=== PATIENT | male | born 1960 | race Caucasian/White ===

== ENCOUNTER 2017-05-22 12:01 | Inpatient (IN) | payer OTHER ==
[2017-05-22] VITALS (7 sets, daily range): BP systolic 90–104; BP diastolic 66–76; PULSE 97–115; TEMP 36.8; O2SAT 91–94; BMI 29.8
[~2017-05-22] VITALS: Ht 190.5 cm; Wt 103.6 kg
[~2017-05-22 12:01] MED LIST: ASPI325T45 PO; CARV6.252 PO; DIGO0.122 PO; EFFSR75 PO; FURO-85 PO; LISI-461 PO; OXYC-57 PO; SPIR50TA3 PO; WARF4TAB44 PO
[2017-05-22] MEDS ORDERED: DiphenhydrAMINE HCL 50 MG/ML VIAL IV STA (12:21)
[2017-05-22] MEDS ORDERED: METHYLPREDNISOLONE 125 MG VIAL IV STA (12:21)
[2017-05-22] MEDS ORDERED: FAMOTIDINE 20MG/5ML IV PUSH IV STA (12:21)
[2017-05-22 12:31] LABS: ISTAT CREATININE 0.9 mg/dl (0.6-1.3); ISTAT IONIZED CALCIUM 1.07 mmol/l (1.12-1.32); ISTAT POTASSIUM 4.6 mEq/L (3.3-5.0)
[2017-05-22] MEDS ORDERED: SODIUM CHLORIDE 0.9% 500ML 500 ML IV STA (12:34)
[2017-05-22 12:43] LABS: BASO % 0.2 %; BASO ABS # 0.01 K/uL (0-0.2); EOS % 0.8 %; EOS ABS # 0.04 K/uL (0-0.5); HEMATOCRIT 30.8 % (42-52); HEMOGLOBIN 9.6 g/dL (14.0-18.0); IG# 0.05 K/uL (0.00-0.02); LYMPH % 24.4 %; LYMPH ABS # 1.29 K/uL (1.2-3.4); MEAN CORPUSCULAR HEMOGLOBIN 27.1 pg (25-34); MEAN CORPUSCULAR HGB CONC 31.2 g/dl (32-36); MEAN PLATELET VOLUME 10.4 fL (7.4-10.4); MONO % 12.5 %; MONO ABS # 0.66 K/uL (0.11-0.59); NEUT % 61.2 %; NEUT ABS # 3.24 K/uL (1.4-6.5); PLATELET COUNT 215 K/uL (130-400); RED CELL DISTRIBUTION WIDTH CV 16.9 % (11.5-14.5); RED CELL DISTRIBUTION WIDTH SD 53.8 fL (36.4-46.3); WHITE BLOOD COUNT 5.29 K/uL (4.8-10.8)
[2017-05-22 12:54] LABS: INR 1.1 (0.9-1.1); PTT PATIENT 26.6 SECONDS (21.0-31.0)
[2017-05-22 13:01] LABS: ALBUMIN 3.1 gm/dl (3.4-5.0); CALCIUM 8.1 mg/dl (8.5-10.1); CREATININE 0.94 mg/dl (0.60-1.40); POTASSIUM 4.4 mmol/L (3.5-5.1); TOTAL PROTEIN 7.3 gm/dl (6.4-8.2)
--- NOTE | 2017-05-22 13:01 | DIAGNOSTIC IMAGING REPORT ---
HEAD WITHOUT CONTRAST (CT) CLINICAL HISTORY: 56 years-old Male presenting with fall eval for bleed. TECHNIQUE: Multidetector CT imaging of the head was performed without the use of intravenous contrast. IV contrast: None. A dose lowering technique was used consistent with the principles of ALARA (as low as reasonably achievable). COMPARISON: None. CT DOSE (mGy.cm): The estimated cumulative dose is 614.27 mGy.cm. 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 Ventricles and sulci normal in size. Brain parenchyma normal in appearance with preserved hull-white differentiation. No mass effect or midline shift. No hemorrhage or acute territorial infarct. No extra-axial fluid collection. Paranasal sinuses and mastoid air cells clear. Calvarium intact. IMPRESSION: 1. No acute intracranial abnormality. Electronically signed by: Lasha Nickerson M.D. 05/22/2017 12:59 PM Dictated Date/Time: 05/22/2017 12:57 PM
[2017-05-22] MEDS ORDERED: ONDANSETRON INJ 2 MG/ML 2 ML VIAL IV STA (13:09)
[2017-05-22] MEDS ORDERED: FENTANYL CITRATE INJ 50 MCG/1 ML 2 ML VIAL IV STA ×2 (13:09→14:06)
--- NOTE | 2017-05-22 13:21 | DIAGNOSTIC IMAGING REPORT ---
CHEST COMBO ANGIO DISSECTION CLINICAL HISTORY: 56 years-old Male presenting with ^premedicated with solumedrol ^eval fro aortic dissection. TECHNIQUE: Multidetector CT angiography of the chest was performed before and after administration of intravenous contrast. 3-D volumetric and/or maximum intensity projection (MIP) images were subsequently reconstructed for review. IV contrast: 93 mL of Optiray 320. A dose lowering technique was used consistent with the principles of ALARA (as low as reasonably achievable). COMPARISON: None. CT DOSE (mGy.cm): The estimated cumulative dose is 4130.15. FINDINGS: Manager Fraud topogram: Left subclavian implanted cardiac defibrillator with single lead to the right ventricular apex. Cardiomegaly. Elevated left hemidiaphragm. Vasculature: The study is adequate for assessment of the aorta. Atherosclerosis of the four-vessel aortic arch. No evidence of intramural hematoma, dissection, penetrating ulcer, or aneurysm. Allowing for timing of the contrast bolus, no gross evidence of a filling defect within the pulmonary arteries to suggest embolus. Main pulmonary artery is not enlarged. No flattening of the interventricular septum. No intracardiac filling defect. No reflux of contrast into the hepatic veins. Remaining chest: On soft tissue windows, normal thyroid and thoracic inlet. No axillary, supraclavicular, hilar, or mediastinal lymphadenopathy. Multichamber enlargement of the heart. Coronary artery calcification. No pericardial or pleural effusion. Elevation of the left hemidiaphragm. On lung windows, extensive bandlike opacities in the left lower lobe and to a lesser extent in the posterior lingula, likely atelectasis and/or scarring. Less extensive dependent groundglass and reticular subpleural opacities in the right lower lobe, either atelectasis or postinfectious/postinflammatory change. Mild bronchial wall thickening, nonspecific. Central airways patent. On bone windows, degenerative changes of the spine. Evidence of old rib fractures. Very degrees of anterior vertebral body height loss at T4, T5, and T10-L2. The most severe compression deformity is at T5. Mild osteopenia. IMPRESSION: 1. No evidence of acute aortic injury. No acute intrathoracic pathology. 2. Bibasilar opacities greater on the left likely secondary to elevation of the left hemidiaphragm. 3. Mild osteopenia with multilevel intervertebral body height loss concerning for changes related to osteoporosis. The most severe compression deformity is at T5. Correlate for point tenderness to assess for acuity. Electronically signed by: Lasha Nickerson M.D. 05/22/2017 1:19 PM Dictated Date/Time: 05/22/2017 1:10 PM
[2017-05-22] MEDS ORDERED: HEPARIN SOD (PORCINE) 1000 UNIT/ML 10 ML VIAL IV STA ×2 (13:30→13:54)
--- NOTE | 2017-05-22 13:47 | DIAGNOSTIC IMAGING REPORT ---
[facility] LE RUNOFF CLINICAL HISTORY: 56 years-old Male presenting with concern for peripheral arterial clots, left-sided pain. TECHNIQUE: Multidetector CT angiography of the abdomen, pelvis, and bilateral lower extremity runoff was performed after the administration of intravenous contrast. 3-D volumetric and/or maximum intensity projection (MIP) images were subsequently reconstructed for review. IV contrast: 93 mL of Optiray 320. A dose lowering technique was used consistent with the principles of ALARA (as low as reasonably achievable). COMPARISON: None. CT DOSE (mGy.cm): The estimated cumulative dose is 4130.15 mGy.cm. FINDINGS: Mat Sewer topogram: Left subclavian implanted cardiac defibrillator with lead to the right ventricular apex. Cardiomegaly. Elevation left hemidiaphragm. Vasculature: No inflammatory change, hematoma, or evidence of active extravasation. No findings to suggest an acute arterial injury or impending rupture. Aorta: Atherosclerosis of the abdominal aorta with infrarenal ectasia measuring up to 2.8 cm in diameter. Patent origins of the major branch vessels. Common iliac arteries: Aneurysmal dilatation of the bilateral common iliac arteries, on the right measuring 3.1 cm in diameter and on the left measuring 3.1 cm in diameter. Extensive noncalcified atherosclerotic plaque circumferentially noted at the bilateral common iliac arteries without significant luminal narrowing. Internal and external iliac arteries: Aneurysmal dilatation extends into the right internal iliac artery, which measures 1.9 cm in diameter. No significant extension into the left though there is a separate less prominent aneurysmal dilatation of the more distal left internal iliac artery, which measures 1.5 cm in diameter. Bilateral external iliac arteries patent though stenosis noted on the right with a minimum diameter of 5.5 mm in comparison to the normal distal diameter of 7.4 mm (approximately 25% stenosis). Common femoral arteries: Bilateral common femoral arteries widely patent. Right lower extremity arteries: Vascular stent in place in the mid to distal right superficial femoral artery (SFA), which appears patent. Proximal to the stent there is extensive luminal irregularity. The stent appears to bridge a proximal right popliteal artery aneurysm, which measures 2 cm in diameter (series 7 image [id number]). No opacification of the occluded aneurysm. The stent terminates prior to the right lower extremity branching. Right anterior tibial artery (ANEL) widely patent. Right peroneal artery and right posterior tibial artery not well opacified proximally though with extensive calcified atherosclerotic plaque. Left lower extreme the arteries: Postsurgical changes of left SFA bypass grafting with a patent graft along its entire course. Extensive aneurysmal dilatation and irregularity of the occluded yuhaaviatam left SFA. The graft terminates at the level of the left popliteal artery immediately distal to a yuhaaviatam left popliteal arterial aneurysm. Reimplantation of the left anterior tibial artery at the level of the graft insertion. The reinserted left ANEL is patent though significant atherosclerotic narrowing (at least 50% luminal narrowing) noted at the level of the interosseous course. More distally the left ANEL is widely patent. Left peroneal artery appears occluded throughout the proximal to mid course but is reconstituted by collateral flow. Left posterior tibial artery appears occluded with extensive calcified atherosclerotic plaque. Remaining abdomen and pelvis: Lung bases: Minimal basilar opacities, likely atelectasis. Multichamber enlargement of the heart. Coronary artery calcification. Partially visualized implanted cardiac defibrillator lead to the right ventricular apex. No pericardial or pleural effusion. Liver: Normal morphology. Normal appearance allowing for phase of contrast. Biliary: No gross biliary ductal dilatation allowing for phase of contrast. Normal gallbladder. Pancreas: Mild parenchymal atrophy. Spleen: Normal. Adrenal glands: Normal. Kidneys and ureters: Normal allowing for the phase of contrast. No nephrolithiasis. Single main renal arteries bilaterally. No hydronephrosis. Bladder: Incompletely evaluated secondary to underdistention. Pelvic organs: Prostate and seminal vesicles normal. Bowel: Normal appendix. No bowel obstruction. Peritoneal cavity: No free fluid or intraperitoneal gas. Lymph nodes: No enlarged lymph nodes in the abdomen or pelvis. Abdominal wall: Small fat-containing umbilical hernia. Musculoskeletal: Degenerative changes of the spine. Old rib fractures noted. Vertebral body height loss of L5 Remaining bilateral lower extremities: Extensive subcutaneous edema in the left lower extremity greater than the right with extensive postsurgical changes along the anterior and medial left thigh from prior bypass grafting. Laminar fluid along the medial left thigh likely postsurgical seroma. This extends into the popliteal fossa deep to the medial head of gastrocnemius. IMPRESSION: 1. No findings to suggest acute vascular injury or aneurysm rupture. 2. Extensive atherosclerosis with multiple sites of aneurysmal dilatation (infrarenal aorta 2.8 cm, right common iliac artery 3.1 cm, left common iliac artery 3.1 cm, right internal iliac artery 1.9 cm, left internal iliac artery 1.5 cm). 3. Postsurgical changes of right SFA-popliteal stent with resulting occlusion of the right popliteal aneurysm. 4. Possible occlusion of right peroneal and posterior tibial arteries, likely chronic. Patent right ANEL. 5. Post surgical changes of left SFA bypass grafting with patent graft. 6. Extensive aneurysmal dilatation of irregularity of the occluded yuhaaviat[place] left SFA. 7. Post surgical changes of reimplanted left ANEL, which is patent. 8. 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 9. These findings were discussed with Dr. Blanco by Dr. Nickerson at 1:44 PM on 05/22/2014. Electronically signed by: Lasha Nickerson M.D. 05/22/2017 1:45 PM Dictated Date/Time: 05/22/2017 1:20 PM
[2017-05-22] MEDS: HEPARIN 25,000 UNIT/500ML D5W 500 ML IV PRN (13:51)
[2017-05-22] MEDS ORDERED: CYCL10TA6 PO (14:19)
[2017-05-22] MEDS ORDERED: LNX125 PO (14:19)
[2017-05-22] MEDS ORDERED: ATOR-26 PO (14:19)
[2017-05-22] MEDS ORDERED: DILT-113 PO (14:19)
[2017-05-22] MEDS ORDERED: NORT25CA PO (14:19)
[2017-05-22] MEDS ORDERED: RIVA1TAB4 PO (14:19)
[2017-05-22] MEDS ORDERED: TEST0.05 TOP (14:19)
[2017-05-22] MEDS ORDERED: MIRT30TA2 PO (14:19)
[2017-05-22] MEDS ORDERED: ASPI81TA28 PO (14:19)
[2017-05-22] MEDS ORDERED: NXM/40 PO (14:19)
[2017-05-22] MEDS ORDERED: OXYC-106 PO (14:19)
[2017-05-22] MEDS ORDERED: VNTHFA/IN INH (14:19)
[2017-05-22] MEDS ORDERED: ISOS30TA35 PO (14:19)
[2017-05-22] MEDS ORDERED: CETI10TA84 PO (14:19)
[2017-05-22] MEDS ORDERED: CLOP1TAB15 PO (14:19)
[2017-05-22] MEDS ORDERED: BUSP15TA70 PO (14:19)
--- NOTE | 2017-05-22 15:56 | History and Physical ---
History & Physical Date & Time of Service: May 22, 2017 at 15:52 Chief Complaint: Left Sided Pain Primary Care Physician: No Doctor, Assigned History of Present Illness Source: patient Mr. Morgan is a 56 y/o male with PMHx of Paroxysmal Atrial Fibrillation, Mixed Diastolic/Systolic CHF, S/P Pacer/ICD, H/O DVT/PE, HTN, HLD, DELICIA, and COPD who presents to the ED c/o L-sided pain and LOC. Patient reports his cardiac history started approximately 8-9 years ago when he developed a viral cardiomyopathy at which she reports his EF being 6%. He ultimately had an ICD placed in [facility] states he has been considered for heart transplantation. Due to multiple episodes of DVTs and PEs the surgery had to be postponed. With medical management he reports his EF began to improve. He states his last known EF was 30% but states this was a while ago. In March, he was in the [facility] as his mother recently and was getting her affairs in order. He reports he was found passed out on the floor and was taken to Hospital in [place]. While hospitalized, he states he had 2 stents placed in his coronary arteries and stents placed in the LLE and had LLE bypass. He states since leaving the hospital he has had progressive GROSSMAN which has limited his activity. He also reports chronically having decent blood pressures at rest but becoming hypotensive with ambulation and feeling dizzy and lightheaded. On 05/13 he notes that he was walking outside and the cold air is very irritative for him and had resultant firing of his ICD x 6 times. He reports on 05/19 he was sleeping and was awoken due to his ICD firing. Last night , he reports he was trying to sleep and developed significant LLE pain that kept him up at night. He states the pain is worse in the L ankle to the knee but the pain does radiate up his thigh, left side, into L neck, and down L arm. He states with this pain he noticed chest tightness and SOB. The CP resolved with NTG. He noted that his SOB appeared to be getting worse throughout the day and figured he needed evaluated. When he was getting a shower he felt lightheaded and laid down in the shower and states he believed her lost consciousness. He also reports multiple black bowel movements over the past couple days. He is on Xarelto, ASA, and Plavix and denies additional NSAIDs, iron supplementation, or Pepto-Bismol. He states he has had GI ulcers in the past. In the ED, patient was hypotensive after NTG but afebrile and without leukocytosis. Denies CP but troponins at 12. Reporting last ICD firing was on 05/19. Dr. Parker was at bedside and pacer was interrogated. Patient appears in no acute distress, mentating appropriately, denies CP. Only complaint is of LLE pain. States the redness of his leg is worse than normal but the swelling is improving. States he has been wrapping his leg with warm compresses that seems to help. Patient states he ran out of his Xarelto and hasn't taken it the past couple days. Past Medical/Surgical History Medical Problems: (1) Atrial Fibrillation Status: Chronic (2) Chronic Diastolic Hrt Failure Status: Chronic (3) Coronary Atherosclerosis Of [place] Coronary Vessel Status: Chronic (4) Hypertension Nos Status: Chronic (5) Mixed Hyperlipidemia Status: Chronic Family History Family history was reviewed; no changes noted. Social History Smoking Status: Former Smoker Smokeless Tobacco Use: No Alcohol Use: none Drug Use: heroin Marital Status: single Occupational Status: disabled Allergies Coded Allergies: Heparin (Unverified Allergy, Severe, Swells up., 05/22/17) Reported by PT, swells up from Heparin injections. Iodinated Diagnostic Agents (Verified Allergy, Intermediate, swelling, hives, 05/22/17) Ibuprofen (Verified Adverse Reaction, Mild, nausea vomiting, 05/22/17) Home Medications Scheduled Aspirin (Aspirin Ec), 81 MG PO QAM Atorvastatin (Lipitor), 80 MG PO HS Buspirone Hcl (Buspar), 15 MG PO TID Cetirizine (Zyrtec), 10 MG PO QAM Clopidogrel (Plavix), 75 MG PO QAM Cyclobenzaprine Hcl (Flexeril), 10 MG PO BID Digoxin (Digoxin), 0.125 MG PO QAM Diltiazem Hcl Ext Rel (Tiazac), 180 MG PO QAM Esomeprazole Magnesium (Nexium), 40 MG PO QAM Isosorbide Mononitrate Ext Rel (Imdur Ext Rel), 0.5 TAB PO DAILY Mirtazapine Soltab (Remeron Soltab), 60 MG PO HS Nortriptyline (Pamelor), 25 MG PO HS Rivaroxaban (Xarelto), 20 MG PO QPM Testosterone (Androderm), 1 PATCH TOP DAILY Scheduled PRN Albuterol Hfa (Ventolin Hfa), 2 PUFFS INH Q6H PRN for Shortness of Breath Oxycodone/Acetaminophen 10MG/325MG (Percocet 10MG/325MG), 1 TAB PO TID PRN for Pain Review of Systems Constitutional: + fatigue, No fever, No chills ENT: No nasal symptoms, No sore throat Respiratory: + dyspnea on exertion, No cough, No dyspnea at rest Cardiovascular: + chest pain (RESOLVED), No orthopnea, No palpitations Abdomen: + GI bleeding (melena), No pain, No nausea, No vomiting, No diarrhea, No constipation Musculoskeletal: + swelling (LLE), + calf pain (LLE) Genitourinary - Male: No dysuria Physical Exam Vital Signs Date Time Temp Pulse Resp B/P (MAP) Pulse Ox O2 Delivery O2 Flow Rate FiO2 05/22/17 14:56 104 26 91 05/22/17 14:51 102 24 96 05/22/17 14:46 104 15 92 05/22/17 14:41 100 21 93 05/22/17 14:36 98 14 95 05/22/17 14:31 102 12 05/22/17 14:26 102 19 92 05/22/17 14:21 102 18 93 05/22/17 14:16 104 18 96 05/22/17 14:11 104 25 96 05/22/17 14:06 105 22 94 05/22/17 14:01 104 21 97 05/22/17 13:56 105 18 05/22/17 13:51 105 24 94 05/22/17 13:46 100 12 97 05/22/17 13:41 102 16 96 05/22/17 13:36 103 17 100 05/22/17 13:31 104 12 97 05/22/17 13:26 100 19 98 05/22/17 13:21 103 10 98 05/22/17 13:16 103 18 100 05/22/17 13:11 101 18 99 05/22/17 13:06 103 15 99 05/22/17 13:01 102 19 97 1/4/18 12:58 100/78 05/22/17 12:31 109 27 05/22/17 12:30 102/73 05/22/17 12:26 104 21 05/22/17 12:21 118 31 05/22/17 12:18 94/65 05/22/17 12:16 211 27 99 05/22/17 12:12 110 05/22/17 12:11 110 26 05/22/17 12:05 93/58 05/22/17 12:05 98 Room Air 05/22/17 12:05 36.9 111 22 93/58 98 Room Air General Appearance: WD/WN, no apparent distress Head: normocephalic, atraumatic Eyes: sclerae normal ENT: hearing grossly normal Neck: supple, + JVD Respiratory/Chest: lungs clear, no respiratory distress, no accessory muscle use, + decreased breath sounds (diminished at bases) Cardiovascular: regular rate, rhythm Abdomen/GI: normal bowel sounds, non tender, soft Extremities/Musculoskelatal: + calf tenderness, + inflammation, + pertinent finding (red streaking along medial aspect of LLE extending to groin) Neurologic/Psych: alert, oriented x 3 Skin: normal color, warm/dry Diagnostics Laboratory Results Results Past 24 Hours Test 05/22/17 12:10 05/22/17 12:18 05/22/17 13:22 Range/Units White Blood Count 5.29 4.8-10.8 K/uL Red Blood Count 3.54 4.7-6.1 M/uL Hemoglobin 9.6 14.0-18.0 g/dL Hematocrit 30.8 42-52 % Mean Corpuscular Volume 87.0 80-100 fL Mean Corpuscular Hemoglobin 27.1 25-34 pg Mean Corpuscular Hemoglobin Concent 31.2 32-36 g/dl Platelet Count 215 130-400 K/uL Mean Platelet Volume 10.4 7.4-10.4 fL Neutrophils (%) (Auto) 61.2 % Lymphocytes (%) (Auto) 24.4 % Monocytes (%) (Auto) 12.5 % Eosinophils (%) (Auto) 0.8 % Basophils (%) (Auto) 0.2 % Neutrophils # (Auto) 3.24 1.4-6.5 K/uL Lymphocytes # (Auto) 1.29 1.2-3.4 K/uL Monocytes # (Auto) 0.66 0.11-0.59 K/uL Eosinophils # (Auto) 0.04 0-0.5 K/uL Basophils # (Auto) 0.01 0-0.2 K/uL RDW Standard Deviation 53.8 36.4-46.3 fL RDW Coefficient of Variation 16.9 11.5-14.5 % Immature Granulocyte % (Auto) 0.9 % Immature Granulocyte # (Auto) 0.05 0.00-0.02 K/uL Prothrombin Time 11.5 9.0-12.0 SECONDS Prothromb Time International Ratio 1.1 0.9-1.1 Activated Partial Thromboplast Time 26.6 21.0-31.0 SECONDS Partial Thromboplastin Ratio 1.0 Sodium Level 135 136-145 mmol/L Potassium Level 4.4 3.5-5.1 mmol/L Chloride Level 105 98-107 mmol/L Carbon Dioxide Level 24 21-32 mmol/L Anion Gap 6.0 20.0 16-25 mmol/L Blood Urea Nitrogen 6 7-18 mg/dl Creatinine 0.94 0.60-1.40 mg/dl Est Creatinine Clear Calc Drug Dose 113.8 ml/min Estimated GFR () 103.2 Estimated GFR (Non- 89.0 BUN/Creatinine Ratio 6.4 10-20 Random Glucose 93 70-99 mg/dl Calcium Level 8.1 8.5-10.1 mg/dl Total Bilirubin 0.4 0.2-1 mg/dl Direct Bilirubin 0.1 0-0.2 mg/dl Aspartate Amino Transf (AST/SGOT) 73 15-37 U/L Alanine Aminotransferase (ALT/SGPT) 28 12-78 U/L Alkaline Phosphatase 72 45-117 U/L Troponin I 12.200 0-0.045 ng/ml Total Protein 7.3 6.4-8.2 gm/dl Albumin 3.1 3.4-5.0 gm/dl Lipase 125 73-393 U/L Bedside Hemoglobin 10.5 14.0-18.0 g/dl Bedside Hematocrit 31 42-52 % Bedside Sodium 139 135-144 mEq/L Bedside Potassium 4.6 3.3-5.0 mEq/L Bedside Chloride 101 101-112 mEq/L Bedside Total CO2 24 24-31 mEq/l Bedside Blood Urea Nitrogen 4 7-18 mg/dl Bedside Creatinine 0.9 0.6-1.3 mg/dl Bedside Glucose (other) 97 70-99 mg/dl Bedside Ionized Calcium (Eduardo) 1.07 1.12-1.32 mmol/l Bedside Troponin I 14.010 0-0.045 ng/ml Microbiology Results 05/22/17 Blood Culture, Received Pending 05/22/17 Blood Culture, Received Pending Diagnostic Radiology HEAD WITHOUT CONTRAST (CT) FINDINGS: Boring Machine Operator Helper topogram: Unremarkable. Ventricles and sulci normal in size. Brain parenchyma normal in appearance with preserved hull-white differentiation. No mass effect or midline shift. No hemorrhage or acute territorial infarct. No extra-axial fluid collection. Paranasal sinuses and mastoid air cells clear. Calvarium intact. IMPRESSION: 1. No acute intracranial abnormality. CHEST COMBO ANGIO DISSECTION FINDINGS: Boring Machine Operator Helper topogram: Left subclavian implanted cardiac defibrillator with single lead to the right ventricular apex. Cardiomegaly. Elevated left hemidiaphragm. Vasculature: The study is adequate for assessment of the aorta. Atherosclerosis of the four-vessel aortic arch. No evidence of intramural hematoma, dissection, penetrating ulcer, or aneurysm. Allowing for timing of the contrast bolus, no gross evidence of a filling defect within the pulmonary arteries to suggest embolus. Main pulmonary artery is not enlarged. No flattening of the interventricular septum. No intracardiac filling defect. No reflux of contrast into the hepatic veins. Remaining chest: On soft tissue windows, normal thyroid and thoracic inlet. No axillary, supraclavicular, hilar, or mediastinal lymphadenopathy. Multichamber enlargement of the heart. Coronary artery calcification. No pericardial or pleural effusion. Elevation of the left hemidiaphragm. On lung windows, extensive bandlike opacities in the left lower lobe and to a lesser extent in the posterior lingula, likely atelectasis and/or scarring. Less extensive dependent groundglass and reticular subpleural opacities in the right lower lobe, either atelectasis or postinfectious/postinflammatory change. Mild bronchial wall thickening, nonspecific. Central airways patent. On bone windows, degenerative changes of the spine. Evidence of old rib fractures. Very degrees of anterior vertebral body height loss at T4, T5, and T10-L2. The most severe compression deformity is at T5. Mild osteopenia. IMPRESSION: 1. No evidence of acute aortic injury. No acute intrathoracic pathology. 2. Bibasilar opacities greater on the left likely secondary to elevation of the left hemidiaphragm. 3. Mild osteopenia with multilevel intervertebral body height loss concerning for changes related to osteoporosis. The most severe compression deformity is at T5. Correlate for point tenderness to assess for acuity. ANGIO AA KATHARINE LE RUNOFF FINDINGS: Boring Machine Operator Helper topogram: Left subclavian implanted cardiac defibrillator with lead to the right ventricular apex. Cardiomegaly. Elevation left hemidiaphragm. Vasculature: No inflammatory change, hematoma, or evidence of active extravasation. No findings to suggest an acute arterial injury or impending rupture. Aorta: Atherosclerosis of the abdominal aorta with infrarenal ectasia measuring up to 2.8 cm in diameter. Patent origins of the major branch vessels. Common iliac arteries: Aneurysmal dilatation of the bilateral common iliac arteries, on the right measuring 3.1 cm in diameter and on the left measuring 3.1 cm in diameter. Extensive noncalcified atherosclerotic plaque circumferentially noted at the bilateral common iliac arteries without significant luminal narrowing. Internal and external iliac arteries: Aneurysmal dilatation extends into the right internal iliac artery, which measures 1.9 cm in diameter. No significant extension into the left though there is a separate less prominent aneurysmal dilatation of the more distal left internal iliac artery, which measures 1.5 cm in diameter. Bilateral external iliac arteries patent though stenosis noted on the right with a minimum diameter of 5.5 mm in comparison to the normal distal diameter of 7.4 mm (approximately 25% stenosis). Common femoral arteries: Bilateral common femoral arteries widely patent. Right lower extremity arteries: Vascular stent in place in the mid to distal right superficial femoral artery (SFA), which appears patent. Proximal to the stent there is extensive luminal irregularity. The stent appears to bridge a proximal right popliteal artery aneurysm, which measures 2 cm in diameter (series 7 image [id number]). No opacification of the occluded aneurysm. The stent terminates prior to the right lower extremity branching. Right anterior tibial artery (ANEL) widely patent. Right peroneal artery and right posterior tibial artery not well opacified proximally though with extensive calcified atherosclerotic plaque. Left lower extreme the arteries: Postsurgical changes of left SFA bypass grafting with a patent graft along its entire course. Extensive aneurysmal dilatation and irregularity of the occluded [place] left SFA. The graft terminates at the level of the left popliteal artery immediately distal to a [place] left popliteal arterial aneurysm. Reimplantation of the left anterior tibial artery at the level of the graft insertion. The reinserted left ANEL is patent though significant atherosclerotic narrowing (at least 50% luminal narrowing) noted at the level of the interosseous course. More distally the left ANEL is widely patent. Left peroneal artery appears occluded throughout the proximal to mid course but is reconstituted by collateral flow. Left posterior tibial artery appears occluded with extensive calcified atherosclerotic plaque. Remaining abdomen and pelvis: Lung bases: Minimal basilar opacities, likely atelectasis. Multichamber enlargement of the heart. Coronary artery calcification. Partially visualized implanted cardiac defibrillator lead to the right ventricular apex. No pericardial or pleural effusion. Liver: Normal morphology. Normal appearance allowing for phase of contrast. Biliary: No gross biliary ductal dilatation allowing for phase of contrast. Normal gallbladder. Pancreas: Mild parenchymal atrophy. Spleen: Normal. Adrenal glands: Normal. Kidneys and ureters: Normal allowing for the phase of contrast. No nephrolithiasis. Single main renal arteries bilaterally. No hydronephrosis. Bladder: Incompletely evaluated secondary to underdistention. Pelvic organs: Prostate and seminal vesicles normal. Bowel: Normal appendix. No bowel obstruction. Peritoneal cavity: No free fluid or intraperitoneal gas. Lymph nodes: No enlarged lymph nodes in the abdomen or pelvis. Abdominal wall: Small fat-containing umbilical hernia. Musculoskeletal: Degenerative changes of the spine. Old rib fractures noted. Vertebral body height loss of L5 Remaining bilateral lower extremities: Extensive subcutaneous edema in the left lower extremity greater than the right with extensive postsurgical changes along the anterior and medial left thigh from prior bypass grafting. Laminar fluid along the medial left thigh likely postsurgical seroma. This extends into the popliteal fossa deep to the medial head of gastrocnemius. IMPRESSION: 1. No findings to suggest acute vascular injury or aneurysm rupture. 2. Extensive atherosclerosis with multiple sites of aneurysmal dilatation (infrarenal aorta 2.8 cm, right common iliac artery 3.1 cm, left common iliac artery 3.1 cm, right internal iliac artery 1.9 cm, left internal iliac artery 1.5 cm). 3. Postsurgical changes of right SFA-popliteal stent with resulting occlusion of the right popliteal aneurysm. 4. Possible occlusion of right peroneal and posterior tibial arteries, likely chronic. Patent right ANEL. 5. Post surgical changes of left SFA bypass grafting with patent graft. 6. Extensive aneurysmal dilatation of irregularity of the occluded [place] left SFA. 7. Post surgical changes of reimplanted left ANEL, which is patent. 8. 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 9. These findings were discussed with Dr. Blanco by Dr. Nickerson at 1:44 PM on 05/22/2014. EKG Sinus tachycardia Left axis deviation Incomplete right bundle branch block Inferior infarct , age undetermined Abnormal ECG When compared with ECG of 17-NOV-2014 16:48, Inferior infarct is now present Inverted T waves have replaced nonspecific T wave abnormality in Inferior leads Confirmed by Marito Guerra ([id number]) on 05/22/2017 3:29:53 PM Impression Assessment and Plan Mr. Morgan is a 56 y/o male with PMHx of Paroxysmal Atrial Fibrillation, Mixed Diastolic/Systolic CHF, S/P Pacer/ICD, H/O DVT/PE, HTN, HLD, DELICIA, and COPD who presents to the ED c/o L-sided pain and LOC. NSTEMI: - Patient currently is CP free but troponin at 12 and will trend - Continue Heparin gtt at this time - ASA 81 mg daily and Plavix 75 mg daily - NTG patch - Echo already obtained - Cardiology following - Discussed with Dr. Parker - no invasive intervention at this time but consideration for further testing this hospitalization RLE Pain with Chronic Occlusions: - Skin is mildly erythematous and not significantly warm to touch - may be from chronic occlusions but possible infection - he is afebrile and without leukocytosis, denies fever/chills; can monitor and consider Abx treatment CAD S/P Stents with Mixed Chronic Diastolic/Systolic CHF and S/P ICD: - Imdur 15 mg daily Paroxsymal Atrial Fibrillation: - Digoxin 0.125 mg daily and Diltiazem 180 mg daily COPD without Exacerbation: - Ventolin 2 puffs Q6H PRN Melena: - Hemeoccult stool and monitor H&H - states that they may be more of a dark brown almost black I personally interviewed and examined the patient. I agree with history of present illness and physical exam mentioned above, I also performed my own history taking and examination. Past medical history and review of system has been obtained by myself I reviewed all pertinent labs and studies Reviewed current medications I discussed and formulated of the assessment and plan mentioned above. Please refer to the Summary mentioned below. 56-year-old man with past medical history of paroxysmal atrial fibrillation noncompliant with his Xarelto, combined diastolic/systolic congestive heart failure likely secondary to severe sleep apnea status post pacer/ICD presented to the ED with chest tightness started today and his troponin was 12. Patient mentioned that his AICD fired in [place] May 19 and on May 13. Pacer interrogation indicated he had an episode of V. tach. Patient was started on heparin since he wasn't taking his Xarelto, seen by senior animator will eventually have cardiac catheterization Serial cardiac enzymes, and instructed to do sleep study and use his CPAP General Appearance: not in acute distress Eyes: normal Sclerae, extraocular muscle intact ENT: hearing grossly normal Neck: supple Respiratory/Chest: normal air entry bilateral ,no respiratory distress, no accessory muscle use Cardiovascular: regular rate, rhythm, no murmur Abdomen: non tender, soft, no masses Extremities: no edema Neurologic/Psychiatric: Awake alert oriented times place and person moves all extremities sensation intact cranial nerves II-12 appear to be intact Skin: normal color, warm/dry, no rash Perez Jain MD, [facility] Level of Care Critical Care Resuscitation Status FULL RESUSCITATION VTE Prophylaxis Given or contraindicated: Other Anticoagulation (Heparin gtt)
[2017-05-22] MEDS ORDERED: ONDANSETRON INJ 2 MG/ML 2 ML VIAL IV PRN (16:00)
[2017-05-22] MEDS ORDERED: ACETAMINOPHEN 325 MG TAB PO PRN (16:00)
[2017-05-22] MEDS ORDERED: ALBUTEROL HFA 8 GM INHALER INH PRN (16:00)
[2017-05-22] MEDS ORDERED: ICU PROTOCOL FOR HYPERGLYCEMIA PRN (16:00)
[2017-05-22] MEDS ORDERED: ALUMINUM/MAGNESIUM/SIMETH (MAALOX MAX) 30 ML UDC PO PRN (16:00)
[2017-05-22] MEDS ORDERED: NITROGLYCERIN 0.4 MG SL PER TAB CHARGE SL PRN (16:15)
[2017-05-22] MEDS ORDERED: OXYCODONE/ACETAMINOPHEN 10/325MG TAB ONE (16:54)
--- NOTE | 2017-05-22 16:58 | EMERGENCY ROOM VISIT NOTE ---
History Report prepared by Mariama: Dain Quintero Under the Supervision of: Dr. Maroi Blanco M.D. First contact with patient: 12:11 Chief Complaint: CARDIAC ASSESSMENT Stated Complaint: LEFT SIDED PAIN Nursing Triage Summary: Pt.is from [place] [id number] and has a cardiac hx. Defib and pacemaker. 6-8 weeks ago he had stents inserted, he had dark brown stools last night, noticed chest tightness. 8/10. The left sided pain he has extends the whole way to his foot. EMS gave him 1 nitro, chest tightness decreased from 8/10 to 5/10. He also took 324mg ASA. Pt. states that this morning he took a shower and "blacked out." Also c/o SOB. History of Present Illness The patient is a 56 year old male who presents to the Emergency Room with complaints of worsening, sharp, left sided pain that radiates from his left leg to his left neck beginning this morning. He currently rates his discomfort a 5/ 10. The patient states his discomfort started with a sharp pain in his left leg that shot through the left side of his body to his neck, left back and left arm. He reports shortly after he developed chest tightness that almost resolved with nitroglycerin in the ambulance. The patient notes he became short of breath and weak with his discomfort. He states he try to shower but then became very weak and he thinks he passed out. The patient reports he developed lightheadedness, lied down on the floor, and lost consciousness. He notes he did not fall or hit his head, and he denies a headache. He does not think his defibrillator went off. The patient states he has a history of two stents placed in his heart and legs six weeks ago. 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 The patient notes he has a history of blood clots, including blood clots in his lungs. He states he is on Coumadin, but he ran out of medication a few days ago, so he has not been taking it.(Later he clarified and said that he is on Xarelto has not taken it for the past 2 days. His Coumadin was stopped .)The patient reports he also has a history of atrial fibrillation. He notes his pain feels different than his chronic back pain. Nursing staff notes the patient was normotensive in the ambulance and became hypotensive with nitroglycerin. He later added that he felt his defibrillator go off May 19 in the morning. He also said it went off 6 times before [place]. He did not seek medical attention for this. Currently he states that his left leg is what's hurting him the most. Source of History: patient Onset: this morning Position: neck, chest (left), arm (left), leg (left) Symptom Intensity: 5/10 Quality: sharp Timing: worsening Associated Symptoms: + LOC, + SOB, + weakness, No headache Note: Associated symptoms: chest pain that resolved with nitroglycerin, lightheadedness, Denies: hitting his head Review of Systems See HPI for pertinent positives & negatives. A total of 10 systems reviewed and were otherwise negative. Past Medical & Surgical Medical Problems: (1) Atrial Fibrillation (2) Chronic Diastolic Hrt Failure (3) Coronary Atherosclerosis Of [place] Coronary Vessel (4) Hypertension Nos (5) Mixed Hyperlipidemia (6) NSTEMI (non-ST elevated myocardial infarction) Family History Patient reports no known family medical history. Social History Smoking Status: Former Smoker Alcohol Use: none Drug Use: heroin Marital Status: single Occupation Status: disabled Current/Historical Medications Scheduled Aspirin (Aspirin Ec), 81 MG PO QAM Atorvastatin (Lipitor), 80 MG PO HS Buspirone Hcl (Buspar), 15 MG PO TID Cetirizine (Zyrtec), 10 MG PO QAM Clopidogrel (Plavix), 75 MG PO QAM Cyclobenzaprine Hcl (Flexeril), 10 MG PO BID Digoxin (Digoxin), 0.125 MG PO QAM Diltiazem Hcl Ext Rel (Tiazac), 180 MG PO QAM Esomeprazole Magnesium (Nexium), 40 MG PO QAM Isosorbide Mononitrate Ext Rel (Imdur Ext Rel), 0.5 TAB PO DAILY Mirtazapine Soltab (Remeron Soltab), 60 MG PO HS Nortriptyline (Pamelor), 25 MG PO HS Rivaroxaban (Xarelto), 20 MG PO QPM Testosterone (Androderm), 1 PATCH TOP DAILY Scheduled PRN Albuterol Hfa (Ventolin Hfa), 2 PUFFS INH Q6H PRN for Shortness of Breath Oxycodone/Acetaminophen 10MG/325MG (Percocet 10MG/325MG), 1 TAB PO TID PRN for Pain Allergies Coded Allergies: Heparin (Unverified Allergy, Severe, Swells up., 05/22/17) Reported by PT, swells up from Heparin injections. Ibuprofen (Unverified Allergy, Unknown, neasua vomiting, 05/22/17) Uncoded Allergies: IV CONTRAST (Allergy, Unknown, Swelling and hives., 11/17/14) Reported by PT Physical Exam Vital Signs Date Time Temp Pulse Resp B/P (MAP) Pulse Ox O2 Delivery O2 Flow Rate FiO2 05/22/17 14:56 104 26 91 05/22/17 14:51 102 24 96 05/22/17 14:46 104 15 92 05/22/17 14:41 100 21 93 05/22/17 14:36 98 14 95 05/22/17 14:31 102 12 05/22/17 14:26 102 19 92 05/22/17 14:21 102 18 93 05/22/17 14:16 104 18 96 05/22/17 14:11 104 25 96 05/22/17 14:06 105 22 94 05/22/17 14:01 104 21 97 05/22/17 13:56 105 18 05/22/17 13:51 105 24 94 05/22/17 13:46 100 12 97 05/22/17 13:41 102 16 96 05/22/17 13:36 103 17 100 05/22/17 13:31 104 12 97 05/22/17 13:26 100 19 98 05/22/17 13:21 103 10 98 05/22/17 13:16 103 18 100 05/22/17 13:11 101 18 99 05/22/17 13:06 103 15 99 05/22/17 13:01 102 19 97 05/22/17 12:58 100/78 05/22/17 12:31 109 27 05/22/17 12:30 102/73 05/22/17 12:26 104 21 05/22/17 12:21 118 31 05/22/17 12:18 94/65 05/22/17 12:16 211 27 99 05/22/17 12:12 110 05/22/17 12:11 110 26 05/22/17 12:05 93/58 05/22/17 12:05 98 Room Air 05/22/17 12:05 36.9 111 22 93/58 98 Room Air Physical Exam Constitutional: Vital signs reviewed. Hypotensive with equal blood pressures in both arms Eyes: Pupils are equal round reactive to light. Conjunctiva are noninjected. ENT: Pharynx is clear without erythema or exudate. Mucous membranes are moist. Neck supple without meningeal signs. Respiratory: Clear to auscultation bilaterally. Breath sounds are equal bilaterally. Cardiovascular: Tachycardic rate of 111 and regular rhythm. No rubs or gallops. GI: Soft, nondistended and nontender. Bowel sounds are present. Musculoskeletal: No peripheral edema. Tenderness to the left leg along the medial aspect of the lower leg tracking to midthigh with erythema and increased warmth. Incision powell to the left lower leg and inner thigh that are well healed. Symmetric pulses in extremities. Integumentary: No cyanosis. Neurological: The patient is awake and alert. No focal deficits. Psychiatric: Normal affect. Medical Decision & Procedures ER Provider Diagnostic Interpretation: CT results as stated below per my review and radiologist interpretation. CHEST COMBO ANGIO DISSECTION CLINICAL HISTORY: 56 years-old Male presenting with ^premedicated with solumedrol ^eval fro aortic dissection. TECHNIQUE: Multidetector CT angiography of the chest was performed before and after administration of intravenous contrast. 3-D volumetric and/or maximum intensity projection (MIP) images were subsequently reconstructed for review. IV contrast: 93 mL of Optiray 320. A dose lowering technique was used consistent with the principles of ALARA (as low as reasonably achievable). COMPARISON: None. CT DOSE (mGy.cm): The estimated cumulative dose is 4130.15. FINDINGS: [employer]ist topogram: Left subclavian implanted cardiac defibrillator with single lead to the right ventricular apex. Cardiomegaly. Elevated left hemidiaphragm. Vasculature: The study is adequate for assessment of the aorta. Atherosclerosis of the four-vessel aortic arch. No evidence of intramural hematoma, dissection, penetrating ulcer, or aneurysm. Allowing for timing of the contrast bolus, no gross evidence of a filling defect within the pulmonary arteries to suggest embolus. Main pulmonary artery is not enlarged. No flattening of the interventricular septum. No intracardiac filling defect. No reflux of contrast into the hepatic veins. Remaining chest: On soft tissue windows, normal thyroid and thoracic inlet. No axillary, supraclavicular, hilar, or mediastinal lymphadenopathy. Multichamber enlargement of the heart. Coronary artery calcification. No pericardial or pleural effusion. Elevation of the left hemidiaphragm. On lung windows, extensive bandlike opacities in the left lower lobe and to a lesser extent in the posterior lingula, likely atelectasis and/or scarring. Less extensive dependent groundglass and reticular subpleural opacities in the right lower lobe, either atelectasis or postinfectious/postinflammatory change. Mild bronchial wall thickening, nonspecific. Central airways patent. On bone windows, degenerative changes of the spine. Evidence of old rib fractures. Very degrees of anterior vertebral body height loss at T4, T5, and T10-L2. The most severe compression deformity is at T5. Mild osteopenia. IMPRESSION: 1. No evidence of acute aortic injury. No acute intrathoracic pathology. 2. Bibasilar opacities greater on the left likely secondary to elevation of the left hemidiaphragm. 3. Mild osteopenia with multilevel intervertebral body height loss concerning for changes related to osteoporosis. The most severe compression deformity is at T5. Correlate for point tenderness to assess for acuity. Electronically signed by: Lasha Nickerson M.D. 05/22/2017 1:19 PM Dictated Date/Time: 05/22/2017 1:10 PM HEAD WITHOUT CONTRAST (CT) CLINICAL HISTORY: 56 years-old Male presenting with fall eval for bleed. TECHNIQUE: Multidetector CT imaging of the head was performed without the use of intravenous contrast. IV contrast: None. A dose lowering technique was used consistent with the principles of ALARA (as low as reasonably achievable). COMPARISON: None. CT DOSE (mGy.cm): The estimated cumulative dose is 614.27 mGy.cm. FINDINGS: [employer]ist topogram: Unremarkable. Ventricles and sulci normal in size. Brain parenchyma normal in appearance with preserved hull-white differentiation. No mass effect or midline shift. No hemorrhage or acute territorial infarct. No extra-axial fluid collection. Paranasal sinuses and mastoid air cells clear. Calvarium intact. IMPRESSION: 1. No acute intracranial abnormality. Electronically signed by: Lasha Nickerson M.D. 05/22/2017 12:59 PM Dictated Date/Time: 05/22/2017 12:57 PM ANGIO AA KATHARINE LE RUNOFF CLINICAL HISTORY: 56 years-old Male presenting with concern for peripheral arterial clots, left-sided pain. TECHNIQUE: Multidetector CT angiography of the abdomen, pelvis, and bilateral lower extremity runoff was performed after the administration of intravenous contrast. 3-D volumetric and/or maximum intensity projection (MIP) images were subsequently reconstructed for review. IV contrast: 93 mL of Optiray 320. A dose lowering technique was used consistent with the principles of ALARA (as low as reasonably achievable). COMPARISON: None. CT DOSE (mGy.cm): The estimated cumulative dose is 4130.15 mGy.cm. FINDINGS: [employer]ist topogram: Left subclavian implanted cardiac defibrillator with lead to the right ventricular apex. Cardiomegaly. Elevation left hemidiaphragm. Vasculature: No inflammatory change, hematoma, or evidence of active extravasation. No findings to suggest an acute arterial injury or impending rupture. Aorta: Atherosclerosis of the abdominal aorta with infrarenal ectasia measuring up to 2.8 cm in diameter. Patent origins of the major branch vessels. Common iliac arteries: Aneurysmal dilatation of the bilateral common iliac arteries, on the right measuring 3.1 cm in diameter and on the left measuring 3.1 cm in diameter. Extensive noncalcified atherosclerotic plaque circumferentially noted at the bilateral common iliac arteries without significant luminal narrowing. Internal and external iliac arteries: Aneurysmal dilatation extends into the right internal iliac artery, which measures 1.9 cm in diameter. No significant extension into the left though there is a separate less prominent aneurysmal dilatation of the more distal left internal iliac artery, which measures 1.5 cm in diameter. Bilateral external iliac arteries patent though stenosis noted on the right with a minimum diameter of 5.5 mm in comparison to the normal distal diameter of 7.4 mm (approximately 25% stenosis). Common femoral arteries: Bilateral common femoral arteries widely patent. Right lower extremity arteries: Vascular stent in place in the mid to distal right superficial femoral artery (SFA), which appears patent. Proximal to the stent there is extensive luminal irregularity. The stent appears to bridge a proximal right popliteal artery aneurysm, which measures 2 cm in diameter (series 7 image 768). No opacification of the occluded aneurysm. The stent terminates prior to the right lower extremity branching. Right anterior tibial artery (ANEL) widely patent. Right peroneal artery and right posterior tibial artery not well opacified proximally though with extensive calcified atherosclerotic plaque. Left lower extreme the arteries: Postsurgical changes of left SFA bypass grafting with a patent graft along its entire course. Extensive aneurysmal dilatation and irregularity of the occluded [place] left SFA. The graft terminates at the level of the left popliteal artery immediately distal to a nav[place] left popliteal arterial aneurysm. Reimplantation of the left anterior tibial artery at the level of the graft insertion. The reinserted left ANEL is patent though significant atherosclerotic narrowing (at least 50% luminal narrowing) noted at the level of the interosseous course. More distally the left ANEL is widely patent. Left peroneal artery appears occluded throughout the proximal to mid course but is reconstituted by collateral flow. Left posterior tibial artery appears occluded with extensive calcified atherosclerotic plaque. Remaining abdomen and pelvis: Lung bases: Minimal basilar opacities, likely atelectasis. Multichamber enlargement of the heart. Coronary artery calcification. Partially visualized implanted cardiac defibrillator lead to the right ventricular apex. No pericardial or pleural effusion. Liver: Normal morphology. Normal appearance allowing for phase of contrast. Biliary: No gross biliary ductal dilatation allowing for phase of contrast. Normal gallbladder. Pancreas: Mild parenchymal atrophy. Spleen: Normal. Adrenal glands: Normal. Kidneys and ureters: Normal allowing for the phase of contrast. No nephrolithiasis. Single main renal arteries bilaterally. No hydronephrosis. Bladder: Incompletely evaluated secondary to underdistention. Pelvic organs: Prostate and seminal vesicles normal. Bowel: Normal appendix. No bowel obstruction. Peritoneal cavity: No free fluid or intraperitoneal gas. Lymph nodes: No enlarged lymph nodes in the abdomen or pelvis. Abdominal wall: Small fat-containing umbilical hernia. Musculoskeletal: Degenerative changes of the spine. Old rib fractures noted. Vertebral body height loss of L5 Remaining bilateral lower extremities: Extensive subcutaneous edema in the left lower extremity greater than the right with extensive postsurgical changes along the anterior and medial left thigh from prior bypass grafting. Laminar fluid along the medial left thigh likely postsurgical seroma. This extends into the popliteal fossa deep to the medial head of gastrocnemius. IMPRESSION: 1. No findings to suggest acute vascular injury or aneurysm rupture. 2. Extensive atherosclerosis with multiple sites of aneurysmal dilatation (infrarenal aorta 2.8 cm, right common iliac artery 3.1 cm, left common iliac artery 3.1 cm, right internal iliac artery 1.9 cm, left internal iliac artery 1.5 cm). 3. Postsurgical changes of right SFA-popliteal stent with resulting occlusion of the right popliteal aneurysm. 4. Possible occlusion of right peroneal and posterior tibial arteries, likely chronic. Patent right ANEL. 5. Post surgical changes of left SFA bypass grafting with patent graft. 6. Extensive aneurysmal dilatation of irregularity of the occluded [place] left SFA. 7. Post surgical changes of reimplanted left ANEL, which is patent. 8. 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 9. These findings were discussed with Dr. Blanco by Dr. Nickerson at 1:44 PM on 05/22/2014. Electronically signed by: Lasha Nickerson M.D. 05/22/2017 1:45 PM Dictated Date/Time: 05/22/2017 1:20 PM Laboratory Results 05/22/17 12:10 Red Blood Count 3.54, Mean Corpuscular Volume 87.0, Mean Corpuscular Hemoglobin 27.1, Mean Corpuscular Hemoglobin Concent 31.2, Mean Platelet Volume 10.4, Neutrophils (%) (Auto) 61.2, Lymphocytes (%) (Auto) 24.4, Monocytes (%) (Auto) 12.5, Eosinophils (%) (Auto) 0.8, Basophils (%) (Auto) 0.2, Neutrophils # (Auto ) 3.24, Lymphocytes # (Auto) 1.29, Monocytes # (Auto) 0.66, Eosinophils # (Auto ) 0.04, Basophils # (Auto) 0.01 05/22/17 12:10 Test 05/22/17 12:10 05/22/17 12:18 05/22/17 13:22 White Blood Count 5.29 K/uL (4.8-10.8) Red Blood Count 3.54 M/uL (4.7-6.1) Hemoglobin 9.6 g/dL (14.0-18.0) Hematocrit 30.8 % (42-52) Mean Corpuscular Volume 87.0 fL (80-100) Mean Corpuscular Hemoglobin 27.1 pg (25-34) Mean Corpuscular Hemoglobin Concent 31.2 g/dl (32-36) Platelet Count 215 K/uL (130-400) Mean Platelet Volume 10.4 fL (7.4-10.4) Neutrophils (%) (Auto) 61.2 % Lymphocytes (%) (Auto) 24.4 % Monocytes (%) (Auto) 12.5 % Eosinophils (%) (Auto) 0.8 % Basophils (%) (Auto) 0.2 % Neutrophils # (Auto) 3.24 K/uL (1.4-6.5) Lymphocytes # (Auto) 1.29 K/uL (1.2-3.4) Monocytes # (Auto) 0.66 K/uL (0.11-0.59) Eosinophils # (Auto) 0.04 K/uL (0-0.5) Basophils # (Auto) 0.01 K/uL (0-0.2) RDW Standard Deviation 53.8 fL (36.4-46.3) RDW Coefficient of Variation 16.9 % (11.5-14.5) Immature Granulocyte % (Auto) 0.9 % Immature Granulocyte # (Auto) 0.05 K/uL (0.00-0.02) Prothrombin Time 11.5 SECONDS (9.0-12.0) Prothromb Time International Ratio 1.1 (0.9-1.1) Activated Partial Thromboplast Time 26.6 SECONDS (21.0-31.0) Partial Thromboplastin Ratio 1.0 Est Creatinine Clear Calc Drug Dose 113.8 ml/min Estimated GFR () 103.2 Estimated GFR (Non- 89.0 BUN/Creatinine Ratio 6.4 (10-20) Calcium Level 8.1 mg/dl (8.5-10.1) Total Bilirubin 0.4 mg/dl (0.2-1) Direct Bilirubin 0.1 mg/dl (0-0.2) Aspartate Amino Transf (AST/SGOT) 73 U/L (15-37) Alanine Aminotransferase (ALT/SGPT) 28 U/L (12-78) Alkaline Phosphatase 72 U/L (45-117) Troponin I 12.200 ng/ml (0-0.045) Total Protein 7.3 gm/dl (6.4-8.2) Albumin 3.1 gm/dl (3.4-5.0) Lipase 125 U/L (73-393) Bedside Hemoglobin 10.5 g/dl (14.0-18.0) Bedside Hematocrit 31 % (42-52) Bedside Sodium 139 mEq/L (135-144) Bedside Potassium 4.6 mEq/L (3.3-5.0) Bedside Chloride 101 mEq/L (101-112) Bedside Total CO2 24 mEq/l (24-31) Anion Gap 20.0 mmol/L (16-25) Bedside Blood Urea Nitrogen 4 mg/dl (7-18) Bedside Creatinine 0.9 mg/dl (0.6-1.3) Bedside Glucose (other) 97 mg/dl (70-99) Bedside Ionized Calcium (Eduardo) 1.07 mmol/l (1.12-1.32) Bedside Troponin I 14.010 ng/ml (0-0.045) Laboratory results as reviewed by me. Medications Administered Medications (Trade) Dose Ordered Sig/Mariama Route Start Time Stop Time Status Last Admin Dose Admin Methylprednisolone Sodium Succinate (Solu-Medrol IV) 125 mg NOW STAT IV 05/22/17 12:21 05/22/17 12:25 DC 05/22/17 12:35 125 MG Diphenhydramine HCl (Benadryl Inj) 50 mg NOW STAT IV 05/22/17 12:21 05/22/17 12:25 DC 05/22/17 12:34 50 MG Famotidine (Pepcid 20mg Iv Push) 20 mg ONE STAT IV 05/22/17 12:21 05/22/17 12:25 DC 05/22/17 12:35 20 MG Sodium Chloride 500 ml @ 999 mls/hr Q31M STAT IV 05/22/17 12:34 05/22/17 13:04 DC 05/22/17 12:53 999 MLS/HR Fentanyl Citrate (Fentanyl Inj) 50 mcg NOW STAT IV 05/22/17 13:09 05/22/17 13:10 DC 05/22/17 13:09 50 MCG Ondansetron HCl (Zofran Inj) 4 mg NOW STAT IV 05/22/17 13:09 05/22/17 13:10 DC 05/22/17 13:09 4 MG Heparin Sodium/ Dextrose 500 ml @ 34 mls/hr [id number] PRN IV 05/22/17 13:30 06/21/17 13:29 05/22/17 13:51 34 MLS/HR Heparin Sodium (Porcine) (Heparin Iv Bolus) 5,000 unit NOW STAT IV 05/22/17 13:54 05/22/17 13:57 DC 05/22/17 13:54 5,000 UNIT Fentanyl Citrate (Fentanyl Inj) 50 mcg NOW STAT IV 05/22/17 14:06 05/22/17 14:07 DC 05/22/17 14:06 50 MCG ECG Indication: chest pain Rate (beats per minute): 112 Rhythm: sinus tachycardia Findings: Q waves (Inferior and anteriorly), no ectopy Comparison ECG Date: 11/17/13 Change: Q-waves inferiorly were not present before. Repeat EKG: Sinus Rhythm with a rate of 100. Fusion complex present. Q-waves are present inferiorly and anteriorly. No ST elevation. ED Course 1213: The patient was evaluated in room A04B. A complete history and physical exam was performed. 1221: Ordered Famotidine 20mg IV, Diphenhydramine HCl 50mg IV, Methylprednisolone Sodium Succinate 125mg IV 1231: I reevaluated the patient and performed a more detailed lower extremity exam. The patient's blood pressure increased to around 107 systolic. 1234: Ordered Sodium Chloride 500 ml @ 999 mls/hr IV 1307: I reevaluated the patient. He is not having allergic symptoms such as itchiness or shortness of breath after his CT scan. His systolic blood pressure is around 100. He notes his chest pain is resolved, but he is still having a little chest tightness. The patient states he still has severe left leg pain. He reports his defibrillator went out several times before and on . He does note know if it went off today when he lost consciousness. 1309: Ordered Ondansetron HCl 4mg IV, Fentanyl Citrate 50mcg IV 1318: The nurse informed me the patient's troponin is 12. I reevaluated the patient. He states his chest pain and tightness are both gone. We are currently interrogating his pace maker. The patient states he is not allergic to Heparin. He reports he cannot use Lovenox because it causes severe bruising to his abdomen. 1328: I discussed the patient's case with Dr. Abena Jain, [facility] Hospitalist. The patient will be evaluated for further management and care. 1330: Ordered Heparin Sodium (Porcine) 8000 unit IV, Heparin Sodium/Dextrose 500ml @ 34 mls/hr IV 1346: I reevaluated the patient. He reports his chest tightness is now coming and going. He notes he has very mild chest tightness. The patient states he made a mistake. He is not on Coumadin because he was told to stop. He reports he is on Xarelto, which he has not had in a few days. The patient's Heparin bolus was decreased from 8000 units to 5000 units. 1351: I spoke with Alayna Yu from [employer]. The patient had an episode of V-tach on May 19 for 20-30 seconds. He was shocked twice at 9 and 10am. The interrogation cannot go further than that, so they are sending out a tech. 1354: Ordered Heparin Sodium (Porcine) 5000 unit IV 1356: I discussed the patient's case in detail with Dr. Parker, Cardiology. He is going to evaluate the patient in about 20 minutes and is likely going to take him to the radiographer cardiac catheterization this evening. 1404: I reevaluated the patient and updated him of the treatment plan. He agreed. He is complaining with continued leg pain and no chest pain 1406: Ordered Fentanyl Citrate 50mcg IV 1412: I updated Dr. Abena Jain, [facility] Hospitalist of the patient's treatment process. 1540: I spoke with Dr. Parker, Cardiology. He does not think the patient needs to go to the radiographer cardiac catheterization. He suggested the patient be kept on Heparin and evaluated by the hospitalist. Medical Decision This is a 56-year-old male who presents with pain in his chest as well as his leg, flank and back into his neck. Differential diagnosis includes aortic dissection, DVT, cellulitis, HI, pulmonary embolism. I did perform a limited focused review of portions of the patient's old chart on the electronic medical record. The patient has had no recent pertinent visits to this hospital. I did evaluate the patient as noted above. I was concerned about aortic dissection because of his sharp pain from his neck all the way down his flank into his leg. He states she has a history of aortic aneurysm and aneurysms in his legs as well. He also complains of chest pain which she describes as a tightness. The pain comes and goes and seems to get better with nitroglycerin in the ambulance. He is currently on Xarelto but has not taken it for 2 days. The patient was placed on a continuous cardiac sonographer. I did order and personally review the patient's 12-lead EKG as described above. He has Q waves inferiorly. There are says some Q waves anteriorly. I did order and review the patient's blood work as noted in the electronic medical record. His troponin is over 12. The patient states he is allergic to IV contrast, but he has had in the past is always was premedicated. I did treat him with IV Solu- Medrol, Pepcid and Benadryl. I did order a stat CT of the head, chest, abdomen and pelvis. I did review the images myself as well as the radiology report as described above. He does not have any evidence of dissection. He does have multiple findings as noted above. I did reassess the patient multiple times. His chest tightness would come and go. I did repeat a twelve-lead EKG which did not show any new changes. I did consult the paperboard boxes estimator as well as interrogated his pacemaker. The interrogation did show defibrillation and an episode of V. tach. He did not have defibrillation today. I did start him on IV heparin for his non-STEMI. I did also treat him with vancomycin for his leg infection. I did try to obtain records from the hospital in [place] where he received stents. I did treat him with IV fentanyl for his leg pain. I did discuss the case with the hospitalist and welfare case worker. Head Trauma GCS Score: 15 Medication Reconcilliation Current Medication List: was personally reviewed by me Blood Pressure Screening Patient's blood pressure: Low blood pressure Monitored by hospitalist. Consults Time Called: 1326 Consulting Physician: Dr. Abena Jain [facility] Hospitalist Returned Call: 1327 I discussed the patient's case with Dr. Abena Jain, [facility] Hospitalist. The patient will be evaluated for further management and care. 1412: I updated Dr. Abena Jain [facility] Hospitalist of the patient's treatment process. Additional Consults: Time Called: 1345 Consulted Physician: Dr. Miguel Angel Parker, Cardiology Returned Call: 0530 Additional Comments: I discussed the patient's case in detail with Dr. Parker, Cardiology. He is going to evaluate the patient in about 20 minutes and is likely going to take him to the radiographer cardiac catheterization this evening. 1540: I spoke with Dr. Parker, Cardiology. He does not think the patient needs to go to the radiographer cardiac catheterization. He suggested the patient be kept on Heparin and evaluated by the hospitalist. Impression Primary Impression: Non-STEMI (non-ST elevated myocardial infarction) Additional Impressions: Syncope Left leg cellulitis Abdominal aortic aneurysm Critical Care I have personally spent 80 minutes of critical care time in the direct management of this patient. This includes bedside care, interpretation of diagnostic studies, and testing, discussion with consultants, patient, and family members, and other required patient management activities. This 80 minutes is in excess of all separately billable procedures. Scribe Attestation The scribe's documentation has been prepared under my direct and personally reviewed by me in its entirety. I confirm that the note above accurately reflects all work, treatment, procedures, and medical decision making performed by me. Departure Information Dispostion Being Evaluated By Hospitalist Referrals Carlos Huitron M.D. (PCP) Patient Instructions My [facility] Problem Qualifiers Additional Impressions: Syncope Syncope type: unspecified Qualified Codes: R55 - Syncope and collapse Abdominal aortic aneurysm Presence of rupture: without rupture Qualified Codes: I71.4 - Abdominal aortic aneurysm, without rupture
--- NOTE | 2017-05-22 18:45 | ECHOCARDIOGRAM REPORT ---
*NOTICE TO RECEIVING [employer] This information is strictly Confidential and protected under [place] law. [place] law prohibits you from making any further disclosure of this information unless further disclosure is expressly permitted by the written consent of the person to whom it pertains or is authorized by law. A general authorization for the release of medical or other information is not sufficient for this purpose. Hospital accepts no responsibility if the information is made available to any other person, INCLUDING THE PATIENT. Interpretation Summary * Name: APRIL RIVERA I Study Date: 05/22/2017 02:19 PM BP: 100/78 mmHg * Patient Location: [facility] HR: 102 * : 1960 (M/d/yyyy) Gender: Male Height: 75 in * Age: 56 yrs Ethnicity: CA Weight: 238 lb * Ordering Physician: Marito Parker * Referring Physician: Self, Referred * Performed By: Tejal Trevino RDCS * * Reason For Study: CHEST PAIN * BSA: 2.4 m2 * -- Conclusions -- * 1. Mildly dilated LV with mild concentric LVH. * 2. Severe LV dysfunction. LVEF 20-25%. Inferior, inferolateral wall motion abnormalities (see soheilaeye for details). * 3. Normal RV size with mild RV dysfunction. * 4. Aortic valve sclerosis without stenosis. * 5. Normal estimated PA pressures. Est CVP 8mmHg. * 6. No prior studies for comparison. Procedure Details * A contrast injection of Definity was performed to improve assessment of LV function. * Contrast was injected into an intravenous site in the left arm. * One vial of Definity ultrasound contrast was diluted in normal saline to a total volume of 10 ml. A total of '2' ml of solution was administered during imaging. * Lot # [id number] of Definity utilized for procedure. * Expiration date 1 JUL 07. * The attending nurse who injected the contrast agent was LIBERTAD PLATT RN. Left Ventricle * The left ventricle is mildly dilated. * There is mild concentric left ventricular hypertrophy. * Ejection Fraction = 20-25%. * Akinetic inferior, inferlateral and basal septal wall. Moderate hypokinesis in remaining segments. Right Ventricle * There is a pacemaker lead in the right ventricle. * The right ventricle is grossly normal size. * The right ventricular systolic function is mildly reduced. Atria * The left atrium is mildly dilated. * Right atrial size is normal. Mitral Valve * The mitral valve is grossly normal. * There is no mitral valve stenosis. * There is trace mitral regurgitation. Tricuspid Valve * There is trace tricuspid regurgitation. Aortic Valve * Aortic valve sclerosis mild, without significant aortic valvular stenosis. * The aortic valve is trileaflet. * No hemodynamically significant valvular aortic stenosis. * There is no significant aortic regurgitation. Pulmonic Valve * The pulmonary valve is inadequately visualized, but the Doppler data is adequate for interpretation. * Pulmonic stenosis is absent. * There is no significant pulmonary regurgitation. Great Vessels * The aortic root and proximal ascending aorta are normal sized. Pericardium/Pleural * There is no pericardial effusion. Great Vessels * IVC < 2.1; <50% change with respiration. Est RA 8 mmHg. Left Ventricular Diastolic Function * Grade I diastolic dysfunction, (abnormal relaxation pattern). MMode 2D Measurements and Calculations IVSd 1.5 cm IVSs 1.6 cm LVIDd 4.6 cm LVIDs 4.3 cm LVPWd 1.3 cm LVPWs 1.8 cm IVS/LVPW 1.2 FS 6.6 % EDV(Teich) 95.7 ml ESV(Teich) 81.5 ml EF(Teich) 14.8 % EDV(cubed) 95.2 ml ESV(cubed) 77.6 ml EF(cubed) 18.5 % % IVS thick 8.9 % % LVPW thick 43.5 % LV mass(C)d 246.1 grams LV mass(C)dI 104.2 grams/m\S\2 LV mass(C)s 313.5 grams LV mass(C)sI 132.7 grams/m\S\2 SV(Teich) 14.2 ml SI(Teich) 6.0 ml/m\S\2 SV(cubed) 17.6 ml SI(cubed) 7.5 ml/m\S\2 Ao root diam 3.7 cm Ao root area 10.6 cm\S\2 LA dimension 3.6 cm LA/Ao 0.98 LVAd ap4 52.3 cm\S\2 LVLd ap4 10.3 cm EDV(MOD-sp4) 213.6 ml EDV(sp4-el) 225.5 ml LVAs ap4 45.9 cm\S\2 LVLs ap4 9.8 cm ESV(MOD-sp4) 178.4 ml ESV(sp4-el) 182.1 ml EF(MOD-sp4) 16.5 % EF(sp4-el) 19.2 % LVAd ap2 59.9 cm\S\2 LVLd ap2 10.8 cm EDV(MOD-sp2) 272.6 ml EDV(sp2-el) 281.8 ml LVAs ap2 50.5 cm\S\2 LVLs ap2 9.8 cm ESV(MOD-sp2) 211.5 ml ESV(sp2-el) 220.6 ml EF(MOD-sp2) 22.4 % EF(sp2-el) 21.7 % LVLd %diff 4.6 % EDV(MOD-bp) 246.1 ml LVLs %diff -0.18 % ESV(MOD-bp) 196.1 ml EF(MOD-bp) 20.3 % SV(MOD-sp4) 35.2 ml SI(MOD-sp4) 14.9 ml/m\S\2 SV(MOD-sp2) 61.1 ml SI(MOD-sp2) 25.9 ml/m\S\2 SV(MOD-bp) 50.0 ml SI(MOD-bp) 21.1 ml/m\S\2 SV(sp4-el) 43.4 ml SI(sp4-el) 18.4 ml/m\S\2 SV(sp2-el) 61.2 ml SI(sp2-el) 25.9 ml/m\S\2 Doppler Measurements and Calculations Ao V2 max 150.3 cm/sec Ao max PG 9.0 mmHg Ao max PG (full) 7.2 mmHg LV V1 max PG 1.8 mmHg LV V1 max 67.9 cm/sec TR max salvador 221.9 cm/sec
[2017-05-22] MEDS: MoRPHine SULFATE 2 MG/ML CARP IV PRN ×2 (19:54→22:50)
[2017-05-22] MEDS: SODIUM CHLORIDE 0.9% 1000ML 1,000 ML IV SCH (19:54)
[2017-05-22] MEDS: NITROGLYCERIN 0.3 MG/HR PATCH TD SCH (19:54)
[2017-05-22 20:45] LABS: PTT PATIENT 51.8 SECONDS (21.0-31.0)
[2017-05-22] MEDS: ATORVASTATIN 40 MG TAB PO SCH (21:41)
[2017-05-22] MEDS: NORTRIPTYLINE HCL 25 MG CAP PO SCH (21:42)
[2017-05-22] MEDS: BusPIRone 15 MG TAB PO SCH (21:42)
[2017-05-22] MEDS: MIRTAZAPINE SOLTAB 15 MG PO SCH (21:42)
[2017-05-22] MEDS: RANITIDINE HCL SYRUP 150 MG/10 ML UDC PO SCH (21:42)
[2017-05-22] MEDS ORDERED: INFLUENZA VIRUS QUAD VACCINE 0.5 ML SYR IM. ONE (22:15)
[2017-05-22] MEDS ORDERED: PNEUMOCOCCAL POLYSACCHARIDES 25 MCG/0.5 ML VIAL/SYR IM. ONE (22:15)
[2017-05-22] MEDS ORDERED: PNEUMOCOCCAL ADMINISTRATION CHARGE ONE (22:15)
[2017-05-22] MEDS ORDERED: INFLUENZA ADMINISTRATION CHARGE ONE (22:15)
[2017-05-22] MEDS: OXYCODONE/ACETAMINOPHEN 10/325MG TAB PO PRN (22:50)
[2017-05-23] VITALS (29 sets, daily range): BP systolic 89–142; BP diastolic 62–87; PULSE 86–117; TEMP 36.4–36.7; O2SAT 88–97; Ht 190.5 cm; Wt 103.6 kg
--- NOTE | 2017-05-23 00:06 | CARDIOLOGY CONSULTATION ---
DATE OF CONSULTATION: 05/22/2017 CONSULTATION REQUESTED BY: Dr. Blanco. REASON FOR CONSULTATION: Elevated troponin. HISTORY OF PRESENT ILLNESS: Mr. Morgan is a 56-year-old man with a complex past medical history, including non-ischemic cardiomyopathy status post single-chamber ICD, coronary artery disease post recent RCA stenting, peripheral arterial disease with known lower extremity arterial aneurysm status post recent endovascular stenting and cocpy-nsm-vvvf bypass surgery, prior recurrent VTE, paroxysmal atrial fibrillation, who presented today with multiple complaints and was found to have an elevated troponin to 12. The patient has previously been cared for by Dr. Pollard at [facility] for his non-ischemic cardiomyopathy. He states that was diagnosed years ago and at the time of initial diagnosis had an estimated EF less than 10%. He states he was considered for a transplant; however, on multiple occasions, transplant was forewent due to recurrent blood clots. He has not seen Dr. Pollard in years. More recently, he has had his care in [place] where, he states, he was down after his mother had , was most recently seen at [facility]. There, he has had a recent complex course. It sounds like he initially was evaluated after he was found to have lower extremity iliac, SFA and popliteal aneurysms. He underwent an endovascular graft placement with a covered stent from SFA to popliteal on the right and then had an SFA to yjevm-gmt-qykt popliteal bypass on the left with SFA aneurysm ligation. This was done in March and at that time, was also noted to have 3-cm common iliac aneurysms bilaterally, which were not intervened upon. He was subsequently readmitted after he presented with chest pain. He had previously had a pre-procedure cardiac catheterization, which had shown severe RCA disease as well as an occluded second diagonal. When he returned with chest pain, decision was made to stent his RCA, which was done with two long drug-eluting stents (Synergy 3.5/38 and 3.5/32). Since discharge on 04/22/2017, he states that he has generally felt unwell. He reports shortness of breath with only mild exertion. On 05/13/2017, he states he was walking when his ICD shocked him, causing the fall to the ground. Denies any preceding symptoms. He reports 5 shocks in total that day. On , the patient also had an ICD shock x2. Again, this was not preceded by any symptoms. He said he had no additional palpitations due to ICD shock since. Today, the primary reason for presentation was worsening left lower extremity pain as well as accompanying shortness of breath and pain in his neck. He states that all these have been present for days; however, as they all seemed to be worsened, he presented to the ED. In the ED, the patient denied any chest pain, although had stated that he, intermittently, has had some chest tightness. His EKG showed sinus rhythm without dynamic ST changes. His uuzpm-wb-ndlr troponin was positive at 14. Interrogation of his device showed appropriate ATP and ICD firing for rates above his VT threshold of 185. Of note, he was noted to have significantly reduced amplitude and impedance on most recent interrogation. PAST MEDICAL HISTORY: 1. Non-ischemic cardiomyopathy, EF as low as less than 10%, previously up to 30 as per patient. 2. Chronic systolic heart failure, status post single-chamber ICD. 3. Peripheral arterial disease with known bilateral common iliac artery aneurysms, status post left uxxkp-uqs-lxtb popliteal artery bypass and SFA aneurysm ligation, severe tibial disease with single vessel (anterior tibial) runoff to the foot; also status post right covered stent placement to SPC-rp-ngvuuussq for popliteal aneurysm and distal 1-vessel runoff by CT scan. 4. Coronary artery disease status post PCI to RCA with 2 drug-eluting stents, 04/16/2017. 5. Paroxysmal atrial fibrillation. 6. History of recurrent DVT/PE. 7. Anemia. 8. Questionable seizure disorder. 9. Reported tobacco abuse with severe COPD SOCIAL HISTORY: States that he is from [place], [place]. 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 Lives alone. Denies tobacco use, although it is previously reported on prior discharge summaries, denies heavy alcohol use. Denies any significant any ilicit drug use. FAMILY HISTORY: Denies premature coronary disease or sudden cardiac . REVIEW OF SYSTEMS: A 10-point review of systems completed and otherwise negative unless stated in the HPI. PHYSICAL EXAMINATION: VITAL SIGNS: Temperature 36.9, pulse 102, blood pressure 124/80, satting 92% on room air. GENERAL: The patient appears comfortable, no acute distress. HEENT: Sclerae are anicteric. Oropharynx is clear. Mucous membranes are moist. NECK: He has got JVP to approximately 8 to 9. LUNGS: Clear to auscultation bilaterally. HEART: He had distant heart sounds, it is regular with no appreciable murmurs. ABDOMEN: Soft, nontender. EXTREMITIES: Warm bilaterally. He had a palpable DP pulse on the right. No palpable PT pulse on the right. No DP or PT pulses palpable on the left. He had erythema surrounding well healed incisions down from his thigh to below the knee on the left. NEUROLOGIC: Nonfocal. PSYCHIATRIC: He is alert, oriented and appropriate. LABORATORY DATA: White blood cell count 5.3, hemoglobin of 9.6, platelets of 215. INR 1.1. Sodium 135, potassium 4.4, BUN 6, creatinine of 0.9. LFTs remarkable for an elevated AST at 73. His initial troponin was 12.2. IMAGING: Head CT was negative for any acute intracranial process. CTA of the aorta was negative for dissection. CTA of the abdominal aorta with runoff was remarkable for bilateral 3.1 cm common iliac aneurysms with 1.9 extending into the right internal iliac artery up to 1.9 cm, 1.5 in the left internal iliac. There was a patent right SFA popliteal stent with occluded popliteal aneurysm, patent right ANEL, occluded peroneal and posterior tibial arteries on the right. There was an occluded left SFA, patent left SFA bypass graft and a patent left ANEL. EKG showed sinus tachycardia with an incomplete right bundle-branch block and evidence of inferior infarct; no dynamic ST changes. IMPRESSION AND PLAN: 1. Elevated troponin. The patient is largely chest pain free and EKGs have been unremarkable. Troponin elevation is potentially related to his recent ventricular arrhythmias/ICD shocks; however, in the setting of known coronary artery disease with stenting 5 weeks ago, concern for an acute coronary syndrome event is elevated. Agree with starting him on a heparin infusion and continuing to trend troponins. Likely, he will need repeat cardiac catheterization at some point for further evaluation. In the interim, would continue on his current aspirin, Plavix atorvastatin. Previously , beta-sravan was held in the setting of his COPD, however, I feel it should be re-tried. 2. Recurrent implantable cardioverter defibrillator shocks/suspected ventricular tachycardia. The patient has had 7 ICD shocks in last week and a half. Per review of his device interrogation, these episodes appear to be appropriate for ventricular tachycardia. No clear reversible causes, other than suspected possible coronary ischemia. One notable finding was recently reduced lead amplitude and impedance. We will discuss interrogations further with electrophysiology in the morning. In the interim, continue to monitor on telemetry. We would plan to start on low-dose beta-sravan and ischemic evaluation, as discussed above. 3. Non-ischemic cardiomyopathy/chronic systolic heart failure. Repeat echocardiogram this afternoon shows severe left ventricular dysfunction with an EF of 20-25%. On exam, he appears well perfused without significant congestion on exam. For now, would plan to repeat chest x-ray in the morning. Check BNP. Hold off on diuretics for now. He has previously not been on a beta-sravan or RALPH inhibitor. We will attempt to start more guideline-directed medical therapy. 4. Peripheral arterial disease. Status post recent left superficial femoral cazobq-pz-kefevmnfo bypass in the setting of superficial femoral artery aneurysm and covered stent placement to a popliteal aneurysm on the right. His primary concern today is left lower extremity pain and he does have some erythema around his prior incision sites. No other clear evidence of systemic infection. However, if symptoms persist, may warrant further evaluation by vascular surgery. 5. Paroxysmal atrial fibrillation, in sinus rhythm today; previously on diltiazem and digoxin. Would hold Xarelto in preparation for cardiac cath. We will continue to follow while in the hospital. GWEN
[2017-05-23] MEDS ORDERED: NURSING VERBAL MED ORDER ONE (01:15)
[2017-05-23 04:03] LABS: HEMATOCRIT 26.9 % (42-52); HEMOGLOBIN 8.2 g/dL (14.0-18.0); IG# 0.02 K/uL (0.00-0.02); LYMPH % 14.1 %; LYMPH ABS # 0.52 K/uL (1.2-3.4); MEAN CELL VOLUME 86.8 fL (80-100); MEAN CORPUSCULAR HEMOGLOBIN 26.5 pg (25-34); MEAN CORPUSCULAR HGB CONC 30.5 g/dl (32-36); MONO ABS # 0.22 K/uL (0.11-0.59); NEUT % 79.4 %; NEUT ABS # 2.92 K/uL (1.4-6.5); PLATELET COUNT 176 K/uL (130-400); RED CELL DISTRIBUTION WIDTH CV 16.8 % (11.5-14.5); RED CELL DISTRIBUTION WIDTH SD 53.6 fL (36.4-46.3); WHITE BLOOD COUNT 3.68 K/uL (4.8-10.8)
[2017-05-23 04:20] LABS: PTT PATIENT 52.6 SECONDS (21.0-31.0)
[2017-05-23 04:28] LABS: ALBUMIN 2.6 gm/dl (3.4-5.0); CALCIUM 7.4 mg/dl (8.5-10.1); CREATININE 0.96 mg/dl (0.60-1.40); POTASSIUM 4.6 mmol/L (3.5-5.1)
[2017-05-23 04:43] LABS: TOTAL PROTEIN 6.3 gm/dl (6.4-8.2)
[2017-05-23] MEDS ORDERED: SODIUM CHLORIDE 0.9% 500ML 500 ML IV ONE (05:15)
[2017-05-23] MEDS: HEPARIN 25,000 UNIT/500ML D5W 500 ML IV PRN (05:46)
[2017-05-23 06:32] LABS: HEMOGLOBIN A1C 5.1 % (4.5-5.6)
[2017-05-23] MEDS: MoRPHine SULFATE 2 MG/ML CARP IV PRN ×4 (06:36→21:25)
[2017-05-23] MEDS: OXYCODONE/ACETAMINOPHEN 10/325MG TAB PO PRN ×3 (08:44→19:48)
[2017-05-23] MEDS: BusPIRone 15 MG TAB PO SCH ×3 (08:45→21:31)
[2017-05-23] MEDS: RANITIDINE HCL SYRUP 150 MG/10 ML UDC PO SCH ×2 (08:46→21:28)
[2017-05-23] MEDS: NITROGLYCERIN 0.3 MG/HR PATCH TD SCH (08:47)
[2017-05-23] MEDS ORDERED: NON-FORMULARY MEDICATION (Esomeprazole Magnesium (Nexium) 40 MG) PO SCH (09:00)
[2017-05-23] MEDS ORDERED: DILTIAZEM HCL (TIAzac) 180 MG CAPCR PO SCH (09:00)
[2017-05-23] MEDS ORDERED: ISOSORBIDE MONONITRATE 30 MG TABCR PO SCH (09:00)
[2017-05-23] MEDS: ASPIRIN 81 MG ECTAB PO SCH (09:54)
[2017-05-23] MEDS: CLOPIDOGREL BISULFATE 75 MG TAB PO SCH (09:54)
[2017-05-23] MEDS ORDERED: FENTANYL CITRATE INJ 50 MCG/1 ML 2 ML VIAL ONE (10:45)
[2017-05-23] MEDS ORDERED: MIDAZOLAM HCL 1 MG/ML 2ML VIAL ONE (10:45)
[2017-05-23] MEDS ORDERED: NiCARDipine HCL INJ 2.5 MG/ML 10 ML AMP ONE (10:46)
[2017-05-23] MEDS ORDERED: NITROGLYCERIN/D5W 100MCG/ML 20ML SYR ONE (10:46)
[2017-05-23] MEDS ORDERED: HEPARIN SOD (PORCINE) 1000 UNIT/ML 10 ML VIAL ONE (10:46)
[2017-05-23] MEDS ORDERED: METHYLPREDNISOLONE 125 MG VIAL ONE (10:59)
[2017-05-23] MEDS ORDERED: RANITIDINE HCL 25 MG/ML INJ ONE (10:59)
[2017-05-23] MEDS ORDERED: DiphenhydrAMINE HCL 50 MG/ML VIAL ONE (11:00)
--- NOTE | 2017-05-23 11:46 | Pre Sedation Assessment ---
Pre Sedation Assessment General Date of Sedation: May 23, 2017. Vital Signs Past 12 Hours Date Time Temp Pulse Resp B/P (MAP) Pulse Ox O2 Delivery O2 Flow Rate FiO2 05/23/17 11:35 105 16 110/75 (87) 98 Nasal Cannula 3 05/23/17 10:00 115 27 90 05/23/17 09:54 113 21 106/87 (93) 94 05/23/17 09:00 117 20 93 05/23/17 08:41 36.7 111 22 114/76 (89) 94 Nasal Cannula 4.0 05/23/17 08:40 94 Nasal Cannula 4.0 05/23/17 08:00 114 21 94 05/23/17 07:09 116 21 119/85 (96) 94 05/23/17 07:00 111 21 94 05/23/17 04:00 Nasal Cannula 4.0 05/23/17 04:00 36.4 100 15 89/66 (74) 91 Nasal Cannula 4.0 05/23/17 00:00 36.4 100 19 91/62 (72) 97 Nasal Cannula 4.0 05/23/17 00:00 Nasal Cannula 2.0 Review Cardiovascular: regular rate, rhythm, no edema Lungs: chest non-tender, lungs clear Pre-Sedation Airway Assessment Smoking Status: Former Smoker Hx of Sleep Apnea: Yes Hx of difficult intubation: No Short Thick Neck: No Thyro-mental Distance: > 3 Finger Breadths Oral Cavity: WNL Mallampati Classification: Class II ASA Classification: Class III NPO Status Date of Last Intake of Fluids: May 22, 2017 Time of Last Intake of Fluids: 2099 Date of Last Intake of Solids: May 22, 2017 Time of Last Intake of Solids: 2099 Procedure Planning Contraindications for Sedation: None Current Medications Reviewed: Yes Notes The planned sedation has been discussed with the patient. Informed Consent was obtained. I have identified the patient, determined the appropriateness of sedation and have assessed the patient immediately prior to the procedure. All medicine(s) and interventions are by my order.
--- NOTE | 2017-05-23 11:47 | Post Sedation Assessment ---
Post Sedation Assessment General Date of Sedation May 23, 2017. Vital Signs: Vital Signs Past 12 Hours Date Time Temp Pulse Resp B/P (MAP) Pulse Ox O2 Delivery O2 Flow Rate FiO2 05/23/17 11:35 105 16 110/75 (87) 98 Nasal Cannula 3 05/23/17 10:00 115 27 90 05/23/17 09:54 113 21 106/87 (93) 94 05/23/17 09:00 117 20 93 05/23/17 08:41 36.7 111 22 114/76 (89) 94 Nasal Cannula 4.0 05/23/17 08:40 94 Nasal Cannula 4.0 05/23/17 08:00 114 21 94 05/23/17 07:09 116 21 119/85 (96) 94 05/23/17 07:00 111 21 94 05/23/17 04:00 Nasal Cannula 4.0 05/23/17 04:00 36.4 100 15 89/66 (74) 91 Nasal Cannula 4.0 05/23/17 00:00 36.4 100 19 91/62 (72) 97 Nasal Cannula 4.0 05/23/17 00:00 Nasal Cannula 2.0 Post Procedure Recovery Score Activity: (2) Moves 4 extremities * Respiration: (2) Deep breath/cough Circulation: (2) +/-20% PreAnes Value Consciousness: (2) Fully Awake Oxygen Saturation: (1) O2 needed for >90% Post Anesthesia Score: 9 Discharge Sedation Level of Care: Fast Track Phase II Post Sedation Plan On clinical assessment, the patient appears to have tolerated the sedation without complications. Patient is recovering as anticipated. Patient will continue to be monitored by nursing and may be discharged when sedation discharge criteria are met per below protocol. Upon Completions of procedure and additional 15 minutes continue every 5 minute vital signs and the P.A.R. score; then discharge to a Phase I or Fast Track to Phase II per the following guidelines: * Discharge Patient to appropriate Phase II area if PAR is 8 or greater or return to pre- procedure baseline. The post - procedure orders will be as directed. * If PAR score is less than 8 or not return to pre-procedure baseline then patient will follow Phase I monitoring till PAR is reached for Phase II. The Phase I may be done in procedure room or may call to secure a Phase I area. * If naloxone or flumazenil are used for reversal, hold in Phase I for an additional 60 -120 minutes before discharge to Phase II. Please call the Sedation Physician to re-evaluate and complete post-note for discharge to Phase II area. Do NOT discharge from procedure sedation or Phase 1 until post- sedation evaluation note is complete by procedure /sedation MD Sedation Discharge Instructions to be given to the patient at discharge to home.
--- NOTE | 2017-05-23 12:11 | Cardiac Catheterization ---
Procedure Note Procedure Date May 23, 2017. Pre-Procedure Diagnosis Non STEMI AUC Score 8 Post-Procedure Diagnosis Severe CAD, Normal Intracardiac Pressures Procedure(s) Performed Coronary Angiography, Left Heart Cath [facility] Keith Oven Loader(s) Ortega Estimated Blood Loss 15 Medication(s) Fentanyl, Heparin, Nicardipine, Nitroglycerin, Versed, Lidocaine 1% Summary of Findings Indication: High-risk NSTEMI; recurrent ICD shocks Access: 6Fr slender right radial artery Catheters: [place], JR4, JL3.5 Findings: LM - Angiographically normal LAD - Moderate caliber, tortuous, 40% mid stenosis, distal luminal irregularities as wraps around apex. - High 1st diagonal with 90% proximal stenosis, post-stenosis ectasia then chronically occluded with distal vessel filling retrograde via left to left collaterals Circumflex - Small caliber, luminal irregularities Ramus - Moderate caliber, 50-60% ostial stenosis, 40% mid stenosis RCA - Occluded proximally just proximal to previously placed stents. R-PLB, PDA partially fill via left to right collaterals LVEDP - 10 Arterial Closure: TR Band Summary: 1. Severe 2 vessel coronary artery disease - Occluded proximal RCA just proximal to prior stents placed 5 weeks ago ( limited left to right collaterals to R-PLB, PDA). - Occluded 1st diagonal, fills distally by left to left collaterals 2. Normal intracardiac filling pressure Recommendations: Chest pain free, troponin trending down. RCA occlusion occurred more than 24 hrs ago, likely sometime in the last 10 days potentially leading to his ventricular arrhythmias. No indication to attempt to reopen RCA at this time. Continue medical management of his CAD/cardiomyopathy. Discontinue heparin infusion Continue aspirin/plavix Resume carvedilol. Plan to start RALPH inhibitor ASCVD risk factor modification Hemodynamics Rest Ao: 84/63/73 Final Ao: 86/60/72 LV: 90/10 Recommendations Medical therapy and/or Counseling Specimens None Radiation Exposure (mGy) 1479 Contrast (mls) 45 Fluids (cc crystalloids) 60 Drains none Anesthesia moderate Procedural Complication(s) None Disposition PCU ACC Data Cardiac Status Clinical evaluation leading to the procedure CAD Presntation: Non STEMI Anginal Classification: CCS IV Heart Failure: Yes, NYHA Class: CCS II Cardiogenic Shock w/in 24Hrs: No Cardiac Arrest w/in 24Hrs: No Imaging studies past 6 months: Yes Closure Device Percutaneous Entry Location: Radial Closure Device: Radial Band Recommendations: Medical therapy and/or Counseling Intraprocedure Events Significant Dissection: No Perforation: No
--- NOTE | 2017-05-23 12:27 | Cardiology Follow-Up ---
Subjective Subjective Date of Service: May 23, 2017. Pt evaluation today including: conversation w/ patient, physical exam, chart review, lab review, review of studies, conversation w/ consultant electronics, review of inpatient medication list Additional Details: Recurrent chest pain. Continues to have pain in his left shoulder flank and left leg. Shortness of breath when pain is at its worst. Telemetry reviewed no additional events Problem List Medical Problems: (1) Abdominal aortic aneurysm Status: Acute (2) Left leg cellulitis Status: Acute (3) Non-STEMI (non-ST elevated myocardial infarction) Status: Acute (4) Syncope Status: Acute Review of Systems Constitutional: No fever Respiratory: No cough Cardiac: No chest pain Abdomen: No pain, No nausea Musculoskeletal: + problem reported (Left leg pain, neck pain) Heme: No abnormal bleeding/bruising Skin: + rash Objective Vital Signs Last Vital Signs Documentation Date Time Temp Pulse Resp B/P (MAP) Pulse Ox O2 Delivery O2 Flow Rate FiO2 05/23/17 11:35 105 16 110/75 (87) 98 Nasal Cannula 3 05/23/17 08:41 36.7 Physical Exam: General Appearance: no apparent distress ENT: hearing grossly normal Neck: no JVD Respiratory/Chest: lungs clear, normal breath sounds Cardiovascular: regular rate, rhythm, no edema, no JVD Abdomen: non tender, soft Extremities: no pedal edema, normal capillary refill, + pertinent finding ( Mild redness along left lower extremity, prior incisions well healed) Skin: + rash Lymphatic: no adenopathy Assessment and Plan 1. NSTEMI 2. Recurrent VT/VF post multiple ICD shocks; reduced lead sensitivity/impedance 3. Severe LV dysfunction/chronic systolic heart failure 4. Occluded recently placed RCA stents 5. Peripheral arterial disease with iliac/femoral/popliteal aneurysms post left fem [id number] pop bypass, right popliteal endovascular stent graft 6. History of paroxysmal atrial fibrillation 7. COPD 8. Anemia 9. Diffuse left-sided pain Patient underwent cardiac catheterization today. It revealed occluded proximal RCA just before previously placed stents from 5 weeks ago. Suspect patient subacute stent thrombosis (?Plavix adherence) sometime in the last 10 days potentially leading to his recurrent ventricular arrhythmia as well as his worsened LV dysfunction and dyspnea. No benefit to attempted repeat revascularization at this time as his event has already occurred Going forward: --can discontinue heparin infusion --continue dual antiplatelet therapy with aspirin and Plavix --start carvedilol 3.125 b.i.d--will attempt to titrate up as BP allows; can discontinue diltiazem and imdur and topical nitrates --plan to start RALPH-inhibitor --continue high-intensity statin --okay to continue digoxin, check digoxin level --device interrogation reviewed with Dr. Curtis. Further device setting changes, lead follow-up per him. Will continue to follow. Medications: Current Inpatient Medications Medications (Trade) Dose Ordered Sig/Mariama Route Start Time Stop Time Status Last Admin Dose Admin Heparin Sodium/ Dextrose 500 ml @ 34 mls/hr [id number] PRN IV 05/22/17 13:30 06/06/17 23:59 05/23/17 05:46 34 MLS/HR Albuterol (Ventolin Hfa Inhaler) 2 puffs Q6H PRN INH 05/22/17 16:00 06/21/17 15:59 Aspirin (Ecotrin Tab) 81 mg QAM PO 05/23/17 09:00 06/22/17 08:59 05/23/17 09:54 81 MG Atorvastatin Calcium (Lipitor Tab) 80 mg HS PO 05/22/17 21:00 06/21/17 20:59 05/22/17 21:41 80 MG Buspirone HCl (BusPAR TAB) 15 mg TID PO 05/22/17 21:00 06/21/17 20:59 05/23/17 08:45 15 MG Clopidogrel Bisulfate (plAVix TAB) 75 mg QAM PO 05/23/17 09:00 06/22/17 08:59 05/23/17 09:54 75 MG Digoxin (Lanoxin Tab) 0.125 mg DAILY@1600 PO 05/23/17 16:00 06/22/17 15:59 Diltiazem HCl (TIAzac CAP) 180 mg QAM PO 05/23/17 09:00 06/22/17 08:59 05/23/17 09:54 180 MG Isosorbide Mononitrate (Imdur Ext Rel Tab) 15 mg DAILY PO 05/23/17 09:00 06/22/17 08:59 05/23/17 08:46 15 MG Nortriptyline HCl (Pamelor Cap) 25 mg HS PO 05/22/17 21:00 06/21/17 20:59 05/22/17 21:42 25 MG Oxycodone/ Acetaminophen (Percocet 10-325MG Tab) 1 tab TID PRN PO 05/22/17 16:00 06/05/17 15:59 05/23/17 08:44 1 TAB Mirtazapine (Remeron Solutab) 60 mg HS PO 05/22/17 21:00 06/21/17 20:59 05/22/17 21:42 60 MG Sodium Chloride 1,000 ml @ 25 mls/hr Q24H IV 05/22/17 18:15 06/21/17 18:14 05/22/17 19:54 25 MLS/HR Acetaminophen (Tylenol Tab) 650 mg Q4H PRN PO 05/22/17 16:00 06/21/17 15:59 Al Hydrox/Mg Hydrox/Simethicone (Maalox Max Susp) 15 ml Q4H PRN PO 05/22/17 16:00 06/21/17 15:59 Magnesium Hydroxide (Milk Of Magnesia Susp) 30 ml Q12H PRN PO 05/22/17 16:00 06/21/17 15:59 Ondansetron HCl (Zofran Inj) 4 mg Q6H PRN IV 05/22/17 16:00 06/21/17 15:59 Ranitidine HCl (zANTac SYRUP) 150 mg BID PO 05/22/17 21:00 06/21/17 20:59 05/23/17 08:46 150 MG Morphine Sulfate (MoRPHine SULFATE INJ) 2 mg Q2H PRN IV 05/22/17 16:00 06/05/17 15:59 05/23/17 06:36 2 MG Miscellaneous Information (Icu Protocol For Hyperglycemia) 1 ea PRN PRN N/A 05/22/17 16:00 05/24/17 15:59 Nitroglycerin (Nitrostat Tab) 0.4 mg UD PRN SL 05/22/17 16:15 06/21/17 16:14 Nitroglycerin (Nitro-Dur 0.3 Mg/Hr Patch) 1 patch QAM TD 05/22/17 18:30 06/21/17 18:29 05/23/17 08:47 1 PATCH Lab Results: 05/23/17 03:43 Red Blood Count 3.10, Mean Corpuscular Volume 86.8, Mean Corpuscular Hemoglobin 26.5, Mean Corpuscular Hemoglobin Concent 30.5, Mean Platelet Volume 10.0, Neutrophils (%) (Auto) 79.4, Lymphocytes (%) (Auto) 14.1, Monocytes (%) (Auto) 6.0, Eosinophils (%) (Auto) 0.0, Basophils (%) (Auto) 0.0, Neutrophils # (Auto) 2.92, Lymphocytes # (Auto) 0.52, Monocytes # (Auto) 0.22, Eosinophils # (Auto) 0.00, Basophils # (Auto) 0.00 05/23/17 03:43 Test 05/22/17 12:18 05/22/17 13:22 05/22/17 20:35 05/23/17 03:43 Bedside Hemoglobin 10.5 g/dl (14.0-18.0) Bedside Hematocrit 31 % (42-52) Bedside Sodium 139 mEq/L (135-144) Bedside Potassium 4.6 mEq/L (3.3-5.0) Bedside Chloride 101 mEq/L (101-112) Bedside Total CO2 24 mEq/l (24-31) Bedside Blood Urea Nitrogen 4 mg/dl (7-18) Bedside Creatinine 0.9 mg/dl (0.6-1.3) Bedside Glucose (other) 97 mg/dl (70-99) Bedside Ionized Calcium (Eduardo) 1.07 mmol/l (1.12-1.32) Bedside Troponin I 14.010 ng/ml (0-0.045) Bedside Glucose 205 mg/dl (70-99) White Blood Count 3.68 K/uL (4.8-10.8) Red Blood Count 3.10 M/uL (4.7-6.1) Hemoglobin 8.2 g/dL (14.0-18.0) Hematocrit 26.9 % (42-52) Mean Corpuscular Volume 86.8 fL (80-100) Mean Corpuscular Hemoglobin 26.5 pg (25-34) Mean Corpuscular Hemoglobin Concent 30.5 g/dl (32-36) Platelet Count 176 K/uL (130-400) Mean Platelet Volume 10.0 fL (7.4-10.4) Neutrophils (%) (Auto) 79.4 % Lymphocytes (%) (Auto) 14.1 % Monocytes (%) (Auto) 6.0 % Eosinophils (%) (Auto) 0.0 % Basophils (%) (Auto) 0.0 % Neutrophils # (Auto) 2.92 K/uL (1.4-6.5) Lymphocytes # (Auto) 0.52 K/uL (1.2-3.4) Monocytes # (Auto) 0.22 K/uL (0.11-0.59) Eosinophils # (Auto) 0.00 K/uL (0-0.5) Basophils # (Auto) 0.00 K/uL (0-0.2) RDW Standard Deviation 53.6 fL (36.4-46.3) RDW Coefficient of Variation 16.8 % (11.5-14.5) Immature Granulocyte % (Auto) 0.5 % Immature Granulocyte # (Auto) 0.02 K/uL (0.00-0.02) Toxic Vacuolation 1+ Large Platelets 1+ Hypochromasia PRESENT Activated Partial Thromboplast Time 52.6 SECONDS (21.0-31.0) Partial Thromboplastin Ratio 2.0 Anion Gap 5.0 mmol/L (3-11) Est Creatinine Clear Calc Drug Dose 111.4 ml/min Estimated GFR () 100.6 Estimated GFR (Non- 86.8 BUN/Creatinine Ratio 9.9 (10-20) Estimated Average Glucose 100 mg/dl Hemoglobin A1c 5.1 % (4.5-5.6) Calcium Level 7.4 mg/dl (8.5-10.1) Magnesium Level 2.3 mg/dl (1.8-2.4) Total Bilirubin 0.2 mg/dl (0.2-1) Aspartate Amino Transf (AST/SGOT) 39 U/L (15-37) Alanine Aminotransferase (ALT/SGPT) 22 U/L (12-78) Alkaline Phosphatase 60 U/L (45-117) Total Protein 6.3 gm/dl (6.4-8.2) Albumin 2.6 gm/dl (3.4-5.0) Globulin 3.7 gm/dl (2.5-4.0) Albumin/Globulin Ratio 0.7 (0.9-2) Triglycerides Level 75 mg/dl (0-150) Cholesterol Level 104 mg/dl (0-200) HDL Cholesterol 39 mg/dl LDL Cholesterol, Calculated 50 mg/dl VLDL Cholesterol, Calculated 15 mg/dl Cholesterol/HDL Ratio 2.7 Test 05/23/17 09:35 Total Creatine Kinase 144 U/L (39-308) Troponin I 4.870 ng/ml (0-0.045) Date/Time Source Procedure Growth Status 05/22/17 18:00 Nasal MRSA DNA Surveillance Screen - Final Specimen Negative for MRSA by DNA Probe Complete
[2017-05-23] MEDS ORDERED: SODIUM CHLORIDE 0.9% 1000ML 1,000 ML IV SCH (13:00)
--- NOTE | 2017-05-23 13:28 | Cardiology Follow-Up ---
Subjective Date of Service: May 23, 2017. Pt evaluation today including: lab review, review of studies, conversation w/ regional sales consultant History of Present Illness I have reviewed the ICD device interrogation and discussed this with the [employer] wrap that didn't interrogation who also discussed it with technical support at [employer]. Details below. Social History Smoking Status: Former Smoker History of Alcohol Use: No Review of Systems Respiratory: No cough Cardiac: No chest pain Objective Vital Signs Past 12 Hours Date Time Temp Pulse Resp B/P (MAP) Pulse Ox O2 Delivery O2 Flow Rate FiO2 05/23/17 12:46 97 19 92/69 (77) Nasal Cannula 4.0 05/23/17 12:35 102 19 Nasal Cannula 4.0 05/23/17 12:33 100 19 97/72 (80) Nasal Cannula 4.0 05/23/17 12:20 102 24 05/23/17 12:05 36.7 99 19 94 Nasal Cannula 4.0 05/23/17 12:05 Nasal Cannula 4.0 05/23/17 11:35 105 16 110/75 (87) 98 Nasal Cannula 3 05/23/17 10:00 115 27 90 05/23/17 09:54 113 21 106/87 (93) 94 05/23/17 09:00 117 20 93 05/23/17 08:41 36.7 111 22 114/76 (89) 94 Nasal Cannula 4.0 05/23/17 08:40 94 Nasal Cannula 4.0 05/23/17 08:00 114 21 94 05/23/17 07:09 116 21 119/85 (96) 94 05/23/17 07:00 111 21 94 05/23/17 04:00 Nasal Cannula 4.0 05/23/17 04:00 36.4 100 15 89/66 (74) 91 Nasal Cannula 4.0 Last Recorded Weight-Kilograms: 106.500 Data Laboratory Results: Last 24 Hours Test 05/22/17 13:22 05/22/17 19:51 05/22/17 20:35 05/22/17 22:37 Bedside Troponin I 14.010 ng/ml Activated Partial Thromboplast Time 51.8 SECONDS Partial Thromboplastin Ratio 2.0 Bedside Glucose 205 mg/dl Total Creatine Kinase 221 U/L Troponin I 6.230 ng/ml Test 05/23/17 03:43 05/23/17 09:35 White Blood Count 3.68 K/uL Red Blood Count 3.10 M/uL Hemoglobin 8.2 g/dL Hematocrit 26.9 % Mean Corpuscular Volume 86.8 fL Mean Corpuscular Hemoglobin 26.5 pg Mean Corpuscular Hemoglobin Concent 30.5 g/dl Platelet Count 176 K/uL Mean Platelet Volume 10.0 fL Neutrophils (%) (Auto) 79.4 % Lymphocytes (%) (Auto) 14.1 % Monocytes (%) (Auto) 6.0 % Eosinophils (%) (Auto) 0.0 % Basophils (%) (Auto) 0.0 % Neutrophils # (Auto) 2.92 K/uL Lymphocytes # (Auto) 0.52 K/uL Monocytes # (Auto) 0.22 K/uL Eosinophils # (Auto) 0.00 K/uL Basophils # (Auto) 0.00 K/uL RDW Standard Deviation 53.6 fL RDW Coefficient of Variation 16.8 % Immature Granulocyte % (Auto) 0.5 % Immature Granulocyte # (Auto) 0.02 K/uL Toxic Vacuolation 1+ Large Platelets 1+ Hypochromasia PRESENT Activated Partial Thromboplast Time 52.6 SECONDS Partial Thromboplastin Ratio 2.0 Sodium Level 136 mmol/L Potassium Level 4.6 mmol/L Chloride Level 105 mmol/L Carbon Dioxide Level 26 mmol/L Anion Gap 5.0 mmol/L Blood Urea Nitrogen 10 mg/dl Creatinine 0.96 mg/dl Est Creatinine Clear Calc Drug Dose 111.4 ml/min Estimated GFR () 100.6 Estimated GFR (Non- 86.8 BUN/Creatinine Ratio 9.9 Random Glucose 177 mg/dl Estimated Average Glucose 100 mg/dl Hemoglobin A1c 5.1 % Calcium Level 7.4 mg/dl Magnesium Level 2.3 mg/dl Total Bilirubin 0.2 mg/dl Aspartate Amino Transf (AST/SGOT) 39 U/L Alanine Aminotransferase (ALT/SGPT) 22 U/L Alkaline Phosphatase 60 U/L Total Creatine Kinase 171 U/L 144 U/L Troponin I 5.310 ng/ml 4.870 ng/ml Total Protein 6.3 gm/dl Albumin 2.6 gm/dl Globulin 3.7 gm/dl Albumin/Globulin Ratio 0.7 Triglycerides Level 75 mg/dl Cholesterol Level 104 mg/dl HDL Cholesterol 39 mg/dl LDL Cholesterol, Calculated 50 mg/dl VLDL Cholesterol, Calculated 15 mg/dl Cholesterol/HDL Ratio 2.7 Imaging: EKG: Telemetry reviewed: Assessment and Plan His ICD interrogation shows that he had multiple ICD shocks which appear appropriate, there are several worrisome findings however. On one occasion a 41 J shock did not convert his tachycardia arrhythmia, however the rhythm changed from a regular rhythm with a specific morphology (it is a single-chamber lead) 200 and irregular rhythm with a different morphology. Subsequently that was converted with another shock. This looks like a conversion from ventricular tachycardia to atrial fibrillation but without an atrial lead I can't confirm that. Additionally his impedances and R waves have dropped, specifically his pacing lead impedance and high voltage impedance have decreased over the last several weeks and there is been a more recent significant drop in R-wave voltage. Although by reprogramming sensitivity (there was drop out on one episode of ventricular fibrillation with very low amplitude electrical activity where some of the beats were not sensed) we can accommodate this arrhythmia if there is further deterioration of R waves the rhythm may go undetected and be treated as asystole (with pacing rather than cardioversion). This is potentially risky, the cause of the changes in characteristics is not certain. One possibility is an insulation problem between the electrodes, although with a high-voltage and the pacing impedance dropping the exact location is not obvious. It may be prudent to consider upgrade of the device to a dual-chamber system. Which could then monitor for atrial fibrillation and if we did that I would probably replace the ventricular lead. Part of the issue is for follow-up , if this trend continues he will be at risk for the device not working.
[2017-05-23] MEDS ORDERED: CARVEDILOL 3.125 MG TAB PO ONE (13:30)
[2017-05-23] MEDS: DIGOXIN 0.125 MG TAB PO SCH (15:47)
[2017-05-23] MEDS: SODIUM CHLORIDE 0.9% 1000ML 1,000 ML IV SCH (17:49)
[2017-05-23] MEDS: ATORVASTATIN 40 MG TAB PO SCH (21:27)
[2017-05-23] MEDS: MIRTAZAPINE SOLTAB 15 MG PO SCH (21:29)
[2017-05-23] MEDS: NORTRIPTYLINE HCL 25 MG CAP PO SCH (21:30)
[2017-05-23] MEDS: CARVEDILOL 3.125 MG TAB PO SCH (21:33)
--- NOTE | 2017-05-23 22:11 | Progress Note ---
Subjective Date of Service: May 23, 2017. Subjective Pt evaluation today including: conversation w/ patient, physical exam 56 yo male reports having SOB at rest. Upon questioning about his plavix, patient states that there were days that he did not take it. He states that it was probably 3 days tops that he did not take medicine. Aside from having SOB at rest, patient also notices left leg pain. Patient reports being very sensitive to pain as he has a low threshold for pain. He states that his whole left lower leg is painful to palpation. He states that he had a stent placed in his lower leg aside from the stents in his heart. This was done in [place]. Problem List Medical Problems: (1) Abdominal aortic aneurysm Status: Acute (2) Left leg cellulitis Status: Acute (3) Non-STEMI (non-ST elevated myocardial infarction) Status: Acute (4) Syncope Status: Acute Review of Systems Constitutional: No fever, No chills ENT: No hearing loss, No unusual epistaxis Respiratory: + shortness of breath, No cough, No sputum Cardiac: No chest pain Abdomen: No pain Musculoskeletal: + calf pain Male : No dysuria Neurologic: No memory loss, No paralysis Psychiatric: No depression symptoms, No anhedonism Heme: No abnormal bleeding/bruising Endo: No fatigue Skin: No rash, No itch All Other Systems: Reviewed and Negative Medications Current Inpatient Medications Medications (Trade) Dose Ordered Sig/Mariama Route Start Time Stop Time Status Last Admin Dose Admin Heparin Sodium/ Dextrose 500 ml @ 34 mls/hr [id number] PRN IV 05/22/17 13:30 06/06/17 23:59 05/23/17 05:46 34 MLS/HR Albuterol (Ventolin Hfa Inhaler) 2 puffs Q6H PRN INH 05/22/17 16:00 06/21/17 15:59 Aspirin (Ecotrin Tab) 81 mg QAM PO 05/23/17 09:00 06/22/17 08:59 05/23/17 09:54 81 MG Atorvastatin Calcium (Lipitor Tab) 80 mg HS PO 05/22/17 21:00 06/21/17 20:59 05/23/17 21:27 80 MG Buspirone HCl (BusPAR TAB) 15 mg TID PO 05/22/17 21:00 06/21/17 20:59 05/23/17 21:31 15 MG Clopidogrel Bisulfate (plAVix TAB) 75 mg QAM PO 05/23/17 09:00 06/22/17 08:59 05/23/17 09:54 75 MG Digoxin (Lanoxin Tab) 0.125 mg DAILY@1600 PO 05/23/17 16:00 06/22/17 15:59 05/23/17 15:47 0.125 MG Nortriptyline HCl (Pamelor Cap) 25 mg HS PO 05/22/17 21:00 06/21/17 20:59 05/23/17 21:30 25 MG Oxycodone/ Acetaminophen (Percocet 10-325MG Tab) 1 tab TID PRN PO 05/22/17 16:00 06/05/17 15:59 05/23/17 19:48 1 TAB Mirtazapine (Remeron Solutab) 60 mg HS PO 05/22/17 21:00 06/21/17 20:59 05/23/17 21:29 60 MG Sodium Chloride 1,000 ml @ 25 mls/hr Q24H IV 05/22/17 18:15 06/21/17 18:14 05/23/17 17:49 25 MLS/HR Acetaminophen (Tylenol Tab) 650 mg Q4H PRN PO 05/22/17 16:00 06/21/17 15:59 Al Hydrox/Mg Hydrox/Simethicone (Maalox Max Susp) 15 ml Q4H PRN PO 05/22/17 16:00 06/21/17 15:59 Magnesium Hydroxide (Milk Of Magnesia Susp) 30 ml Q12H PRN PO 05/22/17 16:00 06/21/17 15:59 Ondansetron HCl (Zofran Inj) 4 mg Q6H PRN IV 05/22/17 16:00 06/21/17 15:59 Ranitidine HCl (zANTac SYRUP) 150 mg BID PO 05/22/17 21:00 06/21/17 20:59 05/23/17 21:28 150 MG Morphine Sulfate (MoRPHine SULFATE INJ) 2 mg Q2H PRN IV 05/22/17 16:00 06/05/17 15:59 05/23/17 21:25 2 MG Miscellaneous Information ([facility] Protocol For Hyperglycemia) 1 ea PRN PRN N/A 1/4/18 16:00 05/24/17 15:59 Nitroglycerin (Nitrostat Tab) 0.4 mg UD PRN SL 05/22/17 16:15 06/21/17 16:14 Nitroglycerin (Nitro-Dur 0.3 Mg/Hr Patch) 1 patch QAM TD 05/22/17 18:30 2 18:29 05/23/17 08:47 1 PATCH Lisinopril (Zestril Tab) 5 mg QAM PO 05/24/17 09:00 06/23/17 08:59 Carvedilol (Coreg Tab) 3.125 mg BID PO 05/23/17 21:00 06/22/17 20:59 05/23/17 21:33 3.125 MG Objective Vital Signs Date Time Temp Pulse Resp B/P (MAP) Pulse Ox O2 Delivery O2 Flow Rate FiO2 05/23/17 20:43 36.5 91 19 107/71 (83) 91 Nasal Cannula 2.0 05/23/17 17:38 90 16 100/66 (77) 90 Nasal Cannula 2.0 05/23/17 16:36 95 19 124/86 (99) 92 Nasal Cannula 2.0 05/23/17 16:00 92 Nasal Cannula 2.0 05/23/17 15:47 90 05/23/17 15:30 90 16 105/69 (81) 88 Room Air 05/23/17 14:16 100 21 106/78 (87) 94 05/23/17 14:01 86 17 102/74 (83) 05/23/17 14:00 91 19 95 05/23/17 13:46 90 18 96/66 (76) 05/23/17 13:31 108 21 108/68 (81) 95 05/23/17 13:30 105 19 05/23/17 13:17 109 20 117/74 (88) 95 05/23/17 13:01 113 28 123/87 (99) 05/23/17 13:00 113 19 94 05/23/17 12:46 97 19 92/69 (77) Nasal Cannula 4.0 05/23/17 12:35 102 19 Nasal Cannula 4.0 05/23/17 12:33 100 19 97/72 (80) Nasal Cannula 4.0 05/23/17 12:20 102 24 05/23/17 12:05 36.7 99 19 94 Nasal Cannula 4.0 05/23/17 12:05 Nasal Cannula 4.0 05/23/17 11:35 105 16 110/75 (87) 98 Nasal Cannula 3 05/23/17 10:00 115 27 90 05/23/17 09:54 113 21 106/87 (93) 94 05/23/17 09:00 117 20 93 05/23/17 08:41 36.7 111 22 114/76 (89) 94 Nasal Cannula 4.0 05/23/17 08:40 94 Nasal Cannula 4.0 05/23/17 08:00 114 21 94 05/23/17 07:09 116 21 119/85 (96) 94 05/23/17 07:00 111 21 94 05/23/17 04:00 Nasal Cannula 4.0 05/23/17 04:00 36.4 100 15 89/66 (74) 91 Nasal Cannula 4.0 05/23/17 00:00 36.4 100 19 91/62 (72) 97 Nasal Cannula 4.0 05/23/17 00:00 Nasal Cannula 2.0 Physical Exam Comments: General Appearance: WD/WN, no apparent distress Head: normocephalic, atraumatic Eyes: sclerae normal ENT: hearing grossly normal Neck: supple, + JVD Respiratory/Chest: lungs clear, no respiratory distress, no accessory muscle use, + decreased breath sounds (diminished at bases) Cardiovascular: regular rate, rhythm Abdomen/GI: normal bowel sounds, non tender, soft Extremities/Musculoskelatal: + calf tenderness, + inflammation, + pertinent finding (red streaking along medial aspect of LLE extending to groin) Neurologic/Psych: alert, oriented x 3 Skin: normal color, warm/dry Laboratory Results Last 24 Hours Test 05/22/17 22:37 05/23/17 03:43 05/23/17 09:35 05/23/17 15:32 Total Creatine Kinase 221 U/L 171 U/L 144 U/L 121 U/L Troponin I 6.230 ng/ml 5.310 ng/ml 4.870 ng/ml 5.090 ng/ml White Blood Count 3.68 K/uL Red Blood Count 3.10 M/uL Hemoglobin 8.2 g/dL Hematocrit 26.9 % Mean Corpuscular Volume 86.8 fL Mean Corpuscular Hemoglobin 26.5 pg Mean Corpuscular Hemoglobin Concent 30.5 g/dl Platelet Count 176 K/uL Mean Platelet Volume 10.0 fL Neutrophils (%) (Auto) 79.4 % Lymphocytes (%) (Auto) 14.1 % Monocytes (%) (Auto) 6.0 % Eosinophils (%) (Auto) 0.0 % Basophils (%) (Auto) 0.0 % Neutrophils # (Auto) 2.92 K/uL Lymphocytes # (Auto) 0.52 K/uL Monocytes # (Auto) 0.22 K/uL Eosinophils # (Auto) 0.00 K/uL Basophils # (Auto) 0.00 K/uL RDW Standard Deviation 53.6 fL RDW Coefficient of Variation 16.8 % Immature Granulocyte % (Auto) 0.5 % Immature Granulocyte # (Auto) 0.02 K/uL Toxic Vacuolation 1+ Large Platelets 1+ Hypochromasia PRESENT Activated Partial Thromboplast Time 52.6 SECONDS Partial Thromboplastin Ratio 2.0 Sodium Level 136 mmol/L Potassium Level 4.6 mmol/L Chloride Level 105 mmol/L Carbon Dioxide Level 26 mmol/L Anion Gap 5.0 mmol/L Blood Urea Nitrogen 10 mg/dl Creatinine 0.96 mg/dl Est Creatinine Clear Calc Drug Dose 111.4 ml/min Estimated GFR () 100.6 Estimated GFR (Non- 86.8 BUN/Creatinine Ratio 9.9 Random Glucose 177 mg/dl Estimated Average Glucose 100 mg/dl Hemoglobin A1c 5.1 % Calcium Level 7.4 mg/dl Magnesium Level 2.3 mg/dl Total Bilirubin 0.2 mg/dl Aspartate Amino Transf (AST/SGOT) 39 U/L Alanine Aminotransferase (ALT/SGPT) 22 U/L Alkaline Phosphatase 60 U/L Total Protein 6.3 gm/dl Albumin 2.6 gm/dl Globulin 3.7 gm/dl Albumin/Globulin Ratio 0.7 Triglycerides Level 75 mg/dl Cholesterol Level 104 mg/dl HDL Cholesterol 39 mg/dl LDL Cholesterol, Calculated 50 mg/dl VLDL Cholesterol, Calculated 15 mg/dl Cholesterol/HDL Ratio 2.7 Assessment and Plan Mr. Morgan is a 56 y/o male with PMHx of Paroxysmal Atrial Fibrillation, Mixed Diastolic/Systolic CHF, S/P Pacer/ICD, H/O DVT/PE, HTN, HLD, DELICIA, and COPD who presents to the ED c/o L-sided pain and LOC. NSTEMI: Patient had cardiac catheterization today. It revealed occluded proximal RCA. Just 5 weekas ago, placed were stents Patient has been non compliant with plavix It is likely that this lead him to recurrent ventricular arrhythmia as well as his worsened LV dysfunction and dyspnea. No benefit to attempted repeat revascularization at this time as his event has already occurred will stop heparin infusion Appreciate cardio input --continue dual antiplatelet therapy with aspirin and Plavix --start carvedilol 3.125 b.i.d--will attempt to titrate up as BP allows; can discontinue diltiazem and imdur and topical nitrates --plan to start RALPH-inhibitor --continue high-intensity statin --okay to continue digoxin, check digoxin level --device interrogation reviewed with Dr. Curtis. Patient may require upgrade to dual chamber devices. RLE Pain with Chronic Occlusions: - Skin is mildly erythematous and not significantly warm to touch - may be from chronic occlusions or new occlusion from non adherence from plavix will review his old records CAD S/P Stents with Mixed Chronic Diastolic/Systolic CHF and S/P ICD: - Imdur 15 mg daily Paroxsymal Atrial Fibrillation: - Digoxin 0.125 mg daily and Diltiazem 180 mg daily COPD without Exacerbation: - Ventolin 2 puffs Q6H PRN Melena: - Hemeoccult stool and monitor H&H - states that they may be more of a dark brown almost black Continued [facility] stay due to: multiple IV medications needed, home environment unsafe for pt Discharge planning: uncertain
[2017-05-24] VITALS (11 sets, daily range): BP systolic 109–136; BP diastolic 60–96; PULSE 72–121; TEMP 36.3–36.9; O2SAT 90–98
[2017-05-24] MEDS: OXYCODONE/ACETAMINOPHEN 10/325MG TAB PO PRN ×4 (06:43→23:02)
[2017-05-24] MEDS: MoRPHine SULFATE 2 MG/ML CARP IV PRN ×5 (06:44→21:07)
[2017-05-24 07:14] LABS: HEMOGLOBIN 8.6 g/dL (14.0-18.0); IG# 0.03 K/uL (0.00-0.02); LYMPH % 8.5 %; LYMPH ABS # 0.67 K/uL (1.2-3.4); MEAN CELL VOLUME 88.4 fL (80-100); MEAN CORPUSCULAR HEMOGLOBIN 26.2 pg (25-34); MEAN CORPUSCULAR HGB CONC 29.7 g/dl (32-36); MEAN PLATELET VOLUME 10.6 fL (7.4-10.4); MONO % 10.2 %; NEUT % 80.9 %; NEUT ABS # 6.37 K/uL (1.4-6.5); PLATELET COUNT 216 K/uL (130-400); RED CELL DISTRIBUTION WIDTH CV 17.1 % (11.5-14.5); RED CELL DISTRIBUTION WIDTH SD 54.9 fL (36.4-46.3); WHITE BLOOD COUNT 7.87 K/uL (4.8-10.8)
[2017-05-24 07:29] LABS: PTT PATIENT 25.6 SECONDS (21.0-31.0)
[2017-05-24] MEDS: CLOPIDOGREL BISULFATE 75 MG TAB PO SCH (08:13)
[2017-05-24] MEDS: ASPIRIN 81 MG ECTAB PO SCH (08:13)
[2017-05-24] MEDS: BusPIRone 15 MG TAB PO SCH ×3 (08:57→20:57)
[2017-05-24] MEDS: LISINOPRIL 5 MG TAB PO SCH (08:57)
[2017-05-24] MEDS: CARVEDILOL 3.125 MG TAB PO SCH (08:57)
[2017-05-24] MEDS: RANITIDINE HCL SYRUP 150 MG/10 ML UDC PO SCH ×2 (08:57→20:56)
[2017-05-24] MEDS: NITROGLYCERIN 0.3 MG/HR PATCH TD SCH ×2 (08:58→09:00)
[2017-05-24] MEDS ORDERED: CARVEDILOL 3.125 MG TAB PO ONE (09:15)
[2017-05-24] MEDS ORDERED: NURSING VERBAL MED ORDER ONE ×3 (12:15→17:00)
[2017-05-24] MEDS: DIGOXIN 0.125 MG TAB PO SCH (16:00)
[2017-05-24] MEDS: MAGNESIUM HYDROXIDE SUSP 30 ML UDC PO PRN (17:02)
[2017-05-24] MEDS: CARVEDILOL 6.25 MG TAB PO SCH (20:55)
[2017-05-24] MEDS: NORTRIPTYLINE HCL 25 MG CAP PO SCH (20:56)
[2017-05-24] MEDS: ATORVASTATIN 40 MG TAB PO SCH (20:56)
[2017-05-24] MEDS: MIRTAZAPINE SOLTAB 15 MG PO SCH (20:57)
--- NOTE | 2017-05-24 21:10 | Progress Note ---
Subjective Date of Service: May 24, 2017. Subjective Pt evaluation today including: conversation w/ patient, physical exam 56 yo male continues to complain of SOB at rest. Patient is aware of his diagnosis. Patient does report not being compliant with his plavix as an outpatient. Patient reports having moderate pain in his left lower extremity, he states he had stents in his leg as well. Problem List Medical Problems: (1) Abdominal aortic aneurysm Status: Acute (2) Left leg cellulitis Status: Acute (3) Non-STEMI (non-ST elevated myocardial infarction) Status: Acute (4) Syncope Status: Acute Review of Systems Constitutional: No fever, No chills ENT: No hearing loss, No unusual epistaxis Respiratory: No cough, No sputum Cardiac: No chest pain, No orthopnea Abdomen: No pain, No nausea Male : No dysuria, No urinary frequency Neurologic: No memory loss, No paralysis Skin: No rash, No itch All Other Systems: Reviewed and Negative Medications Current Inpatient Medications Medications (Trade) Dose Ordered Sig/Mariama Route Start Time Stop Time Status Last Admin Dose Admin Albuterol (Ventolin Hfa Inhaler) 2 puffs Q6H PRN INH 05/22/17 16:00 06/21/17 15:59 Aspirin (Ecotrin Tab) 81 mg QAM PO 05/23/17 09:00 06/22/17 08:59 05/25/17 09:10 81 MG Atorvastatin Calcium (Lipitor Tab) 80 mg HS PO 05/22/17 21:00 06/21/17 20:59 05/25/17 20:44 80 MG Buspirone HCl (BusPAR TAB) 15 mg TID PO 05/22/17 21:00 06/21/17 20:59 05/25/17 20:45 15 MG Clopidogrel Bisulfate (plAVix TAB) 75 mg QAM PO 05/23/17 09:00 06/22/17 08:59 05/25/17 09:10 75 MG Digoxin (Lanoxin Tab) 0.125 mg DAILY@1600 PO 05/23/17 16:00 06/22/17 15:59 05/25/17 16:17 0.125 MG Nortriptyline HCl (Pamelor Cap) 25 mg HS PO 05/22/17 21:00 06/21/17 20:59 05/25/17 20:44 25 MG Mirtazapine (Remeron Solutab) 60 mg HS PO 05/22/17 21:00 06/21/17 20:59 05/25/17 20:46 60 MG Acetaminophen (Tylenol Tab) 650 mg Q4H PRN PO 05/22/17 16:00 06/21/17 15:59 Al Hydrox/Mg Hydrox/Simethicone (Maalox Max Susp) 15 ml Q4H PRN PO 05/22/17 16:00 06/21/17 15:59 Magnesium Hydroxide (Milk Of Magnesia Susp) 30 ml Q12H PRN PO 05/22/17 16:00 06/21/17 15:59 05/25/17 12:37 30 ML Ondansetron HCl (Zofran Inj) 4 mg Q6H PRN IV 05/22/17 16:00 06/21/17 15:59 Morphine Sulfate (MoRPHine SULFATE INJ) 2 mg Q2H PRN IV 05/22/17 16:00 06/05/17 15:59 05/26/17 01:24 2 MG Nitroglycerin (Nitrostat Tab) 0.4 mg UD PRN SL 05/22/17 16:15 06/21/17 16:14 05/24/17 08:05 0.4 MG Nitroglycerin (Nitro-Dur 0.3 Mg/Hr Patch) 1 patch QAM TD 05/22/17 18:30 06/21/17 18:29 05/25/17 09:11 1 PATCH Lisinopril (Zestril Tab) 5 mg QAM PO 05/24/17 09:00 06/23/17 08:59 05/25/17 09:10 5 MG Carvedilol (Coreg Tab) 6.25 mg BID PO 05/24/17 21:00 06/23/17 20:59 05/25/17 20:44 6.25 MG Oxycodone/ Acetaminophen (Percocet 10-325MG Tab) 1 tab Q6H PRN PO 05/24/17 17:15 06/05/17 15:59 05/26/17 01:25 1 TAB Ranitidine HCl (zANTac TAB) 150 mg BID PO 05/25/17 21:00 06/24/17 20:59 05/25/17 20:46 150 MG Objective Vital Signs Date Time Temp Pulse Resp B/P (MAP) Pulse Ox O2 Delivery O2 Flow Rate FiO2 05/24/17 19:35 36.6 88 17 110/77 (88) 94 Nasal Cannula 2.0 05/24/17 16:00 Nasal Cannula 2.0 05/24/17 16:00 90 05/24/17 15:57 36.9 86 18 124/72 (89) 98 Nasal Cannula 2.0 05/24/17 12:00 Nasal Cannula 2.0 05/24/17 12:00 36.5 72 18 126/83 (97) 97 Nasal Cannula 2.0 05/24/17 10:22 100 18 123/78 (93) 94 Nasal Cannula 2.0 05/24/17 08:49 104 109/76 (87) 93 Nasal Cannula 3.0 05/24/17 08:12 114 125/80 (95) 91 Nasal Cannula 3.0 05/24/17 08:00 Nasal Cannula 2.0 05/24/17 07:55 36.8 80 18 122/60 (80) 98 05/24/17 07:54 121 125/96 (106) 05/24/17 04:00 Nasal Cannula 2.0 05/24/17 03:10 36.5 89 19 112/74 (87) 90 Nasal Cannula 2.0 05/24/17 00:05 36.3 94 19 111/76 (88) 90 Nasal Cannula 2.0 05/24/17 00:00 Nasal Cannula 2.0 Physical Exam Comments: General Appearance: WD/WN, no apparent distress Head: normocephalic, atraumatic Eyes: sclerae normal ENT: hearing grossly normal Neck: supple, + JVD Respiratory/Chest: lungs clear, no respiratory distress, no accessory muscle use, + decreased breath sounds (diminished at bases) Cardiovascular: regular rate, rhythm Abdomen/GI: normal bowel sounds, non tender, soft Extremities/Musculoskelatal: + calf tenderness, + inflammation, + pertinent finding (red streaking along medial aspect of LLE extending to groin) Neurologic/Psych: alert, oriented x 3 Skin: normal color, warm/dry Laboratory Results Last 24 Hours Test 05/24/17 06:25 White Blood Count 7.87 K/uL Red Blood Count 3.28 M/uL Hemoglobin 8.6 g/dL Hematocrit 29.0 % Mean Corpuscular Volume 88.4 fL Mean Corpuscular Hemoglobin 26.2 pg Mean Corpuscular Hemoglobin Concent 29.7 g/dl Platelet Count 216 K/uL Mean Platelet Volume 10.6 fL Neutrophils (%) (Auto) 80.9 % Lymphocytes (%) (Auto) 8.5 % Monocytes (%) (Auto) 10.2 % Eosinophils (%) (Auto) 0.0 % Basophils (%) (Auto) 0.0 % Neutrophils # (Auto) 6.37 K/uL Lymphocytes # (Auto) 0.67 K/uL Monocytes # (Auto) 0.80 K/uL Eosinophils # (Auto) 0.00 K/uL Basophils # (Auto) 0.00 K/uL RDW Standard Deviation 54.9 fL RDW Coefficient of Variation 17.1 % Immature Granulocyte % (Auto) 0.4 % Immature Granulocyte # (Auto) 0.03 K/uL Hypochromasia PRESENT Activated Partial Thromboplast Time 25.6 SECONDS Partial Thromboplastin Ratio 1.0 Assessment and Plan Mr. Morgan is a 56 y/o male with PMHx of Paroxysmal Atrial Fibrillation, Mixed Diastolic/Systolic CHF, S/P Pacer/ICD, H/O DVT/PE, HTN, HLD, DELICIA, and COPD who presents to the ED c/o L-sided pain and LOC. NSTEMI: Patient had cardiac catheterization yesterday It revealed occluded proximal RCA. Just 5 weekas ago, placed were stents Patient has been non compliant with plavix It is likely that this lead him to recurrent ventricular arrhythmia as well as his worsened LV dysfunction and dyspnea. No benefit to attempted repeat revascularization at this time as his event has already occurred Appreciate cardio input --continue dual antiplatelet therapy with aspirin and Plavix --start carvedilol 3.125 b.i.d--will attempt to titrate up as BP allows; can discontinue diltiazem and imdur and topical nitrates --plan to start RALPH-inhibitor --continue high-intensity statin --okay to continue digoxin, check digoxin level --device interrogation reviewed with Dr. Curtis. Patient may require upgrade to dual chamber devices. Thsi will be done on Friday. RLE Pain with Chronic Occlusions: - Skin is mildly erythematous and not significantly warm to touch - may be from chronic occlusions or new occlusion from non adherence from plavix will review his old records. will continue to monitor. 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 He has good lower extremity pulses. CAD S/P Stents with Mixed Chronic Diastolic/Systolic CHF and S/P ICD: - Imdur 15 mg daily Paroxsymal Atrial Fibrillation: - Digoxin 0.125 mg daily and Diltiazem 180 mg daily COPD without Exacerbation: - Ventolin 2 puffs Q6H PRN Melena: - Hemeoccult stool and monitor H&H - states that they may be more of a dark brown almost black Continued [facility] stay due to: multiple IV medications needed, home environment unsafe for pt Discharge planning: uncertain
[2017-05-25] VITALS (8 sets, daily range): BP systolic 101–151; BP diastolic 66–76; PULSE 81–92; TEMP 36.5–36.9; O2SAT 91–96
[2017-05-25] MEDS: MoRPHine SULFATE 2 MG/ML CARP IV PRN ×6 (06:07→20:43)
[2017-05-25] MEDS: OXYCODONE/ACETAMINOPHEN 10/325MG TAB PO PRN ×3 (06:08→18:33)
[2017-05-25 06:16] LABS: HEMATOCRIT 30.2 % (42-52); HEMOGLOBIN 9.2 g/dL (14.0-18.0); MEAN CELL VOLUME 88.6 fL (80-100); MEAN CORPUSCULAR HGB CONC 30.5 g/dl (32-36); MEAN PLATELET VOLUME 10.6 fL (7.4-10.4); PLATELET COUNT 230 K/uL (130-400); RED CELL DISTRIBUTION WIDTH CV 17.2 % (11.5-14.5); RED CELL DISTRIBUTION WIDTH SD 55.7 fL (36.4-46.3); WHITE BLOOD COUNT 6.78 K/uL (4.8-10.8)
[2017-05-25 06:25] LABS: PTT PATIENT 23.2 SECONDS (21.0-31.0)
[2017-05-25 06:53] LABS: CREATININE 0.8 mg/dl (0.60-1.40)
[2017-05-25 06:54] LABS: CALCIUM 7.9 mg/dl (8.5-10.1); POTASSIUM 4.7 mmol/L (3.5-5.1)
[2017-05-25] MEDS: ASPIRIN 81 MG ECTAB PO SCH (09:10)
[2017-05-25] MEDS: CLOPIDOGREL BISULFATE 75 MG TAB PO SCH (09:10)
[2017-05-25] MEDS: CARVEDILOL 6.25 MG TAB PO SCH ×2 (09:10→20:44)
[2017-05-25] MEDS: LISINOPRIL 5 MG TAB PO SCH (09:10)
[2017-05-25] MEDS: BusPIRone 15 MG TAB PO SCH ×3 (09:10→20:45)
[2017-05-25] MEDS: NITROGLYCERIN 0.3 MG/HR PATCH TD SCH (09:11)
[2017-05-25] MEDS: RANITIDINE HCL SYRUP 150 MG/10 ML UDC PO SCH (09:15)
[2017-05-25] MEDS ORDERED: NURSING VERBAL MED ORDER ONE (09:15)
--- NOTE | 2017-05-25 11:44 | Cardiology Follow-Up ---
Subjective Date of Service: May 25, 2017. Pt evaluation today including: conversation w/ patient, physical exam, lab review, review of studies, review of inpatient medication list History of Present Illness As well today, no complaints. He had questions about his medications, specifically carvedilol, lisinopril and anticoagulation and I discussed that with him. No further palpitations or ICD shocks. Social History Smoking Status: Former Smoker History of Alcohol Use: No Review of Systems Respiratory: No cough, No sputum, No shortness of breath Cardiac: No chest pain Medications Cardiovascular: Item Value Date Time Carvedilol 6.25 mg 05/24/17 2100 (Coreg Tab) BID/PO 05/25/17 0910 Lisinopril 5 mg 05/24/17 0900 (Zestril Tab) QAM/PO 05/25/17 0910 Digoxin 0.125 mg 05/23/17 1600 (Lanoxin Tab) DAILY@1600/PO 05/24/17 1600 Aspirin 81 mg 05/23/17 0900 (Ecotrin Tab) QAM/PO 05/25/17 0910 Clopidogrel 75 mg 05/23/17 0900 Bisulfate QAM/PO 05/25/17 0910 (plAVix TAB) Atorvastatin 80 mg 05/22/17 2100 Calcium HS/PO 05/24/176 (Lipitor Tab) Objective Vital Signs Past 12 Hours Date Time Temp Pulse Resp B/P (MAP) Pulse Ox O2 Delivery O2 Flow Rate FiO2 05/25/17 08:01 36.9 81 18 113/71 (85) 95 Nasal Cannula 2.0 05/25/17 08:00 91 Room Air 05/25/17 04:15 36.7 81 18 110/76 (87) 96 Nasal Cannula 2.0 05/25/17 04:00 Nasal Cannula 2.0 05/25/17 00:00 Nasal Cannula 2.0 05/24/17 23:49 36.5 77 17 136/76 (96) 97 Nasal Cannula 2.0 Last Recorded Weight-Kilograms: 106.200 Physical Exam Constitutional: Level of Distress: NAD Lungs: Auscultation: breath sounds normal Cardiovascular: Heart Auscultation: RRR, no murmurs Extremities: no edema Data Laboratory Results: Last 24 Hours Test 05/25/17 05:57 White Blood Count 6.78 K/uL Red Blood Count 3.41 M/uL Hemoglobin 9.2 g/dL Hematocrit 30.2 % Mean Corpuscular Volume 88.6 fL Mean Corpuscular Hemoglobin 27.0 pg Mean Corpuscular Hemoglobin Concent 30.5 g/dl RDW Standard Deviation 55.7 fL RDW Coefficient of Variation 17.2 % Platelet Count 230 K/uL Mean Platelet Volume 10.6 fL Activated Partial Thromboplast Time 23.2 SECONDS Partial Thromboplastin Ratio 0.9 Sodium Level 139 mmol/L Potassium Level 4.7 mmol/L Chloride Level 107 mmol/L Carbon Dioxide Level 27 mmol/L Anion Gap 5.0 mmol/L Blood Urea Nitrogen 15 mg/dl Creatinine 0.80 mg/dl Est Creatinine Clear Calc Drug Dose 132.7 ml/min Estimated GFR () 114.1 Estimated GFR (Non- 98.5 BUN/Creatinine Ratio 19.1 Random Glucose 90 mg/dl Calcium Level 7.9 mg/dl Telemetry reviewed: Sinus rhythm, no arrhythmia Assessment and Plan #1. Cardiomyopathy: He has a severe cardiomyopathy and needs to be on appropriate medications. He is on low doses of carvedilol and lisinopril, these have been increased this admission I'm reluctant to go up further. In the future we can consider Entresto or other options, but for the moment I would leave things alone. He seems to be tolerating them well. #2. ICD: I remain concerned about his ICD lead which appears to be failing. I am planning on replacing that on Friday with an upgrade to a dual-chamber device. He understands and agrees. Thank you for allowing me to participate in his care.
[2017-05-25] MEDS: MAGNESIUM HYDROXIDE SUSP 30 ML UDC PO PRN (12:37)
[2017-05-25] MEDS: DIGOXIN 0.125 MG TAB PO SCH (16:17)
[2017-05-25] MEDS: ATORVASTATIN 40 MG TAB PO SCH (20:44)
[2017-05-25] MEDS: NORTRIPTYLINE HCL 25 MG CAP PO SCH (20:44)
[2017-05-25] MEDS: MIRTAZAPINE SOLTAB 15 MG PO SCH (20:46)
[2017-05-25] MEDS: RANITIDINE HCL 150 MG TAB PO SCH (20:46)
--- NOTE | 2017-05-25 22:16 | Progress Note ---
Subjective Date of Service: May 25, 2017. Subjective Patient has no new complaints today. He denies worsening pain of his left lower leg. Patient continues to have SOB at rest, but it is mildly improved from yesterday. Problem List Medical Problems: (1) Abdominal aortic aneurysm Status: Acute (2) Left leg cellulitis Status: Acute (3) Non-STEMI (non-ST elevated myocardial infarction) Status: Acute (4) Syncope Status: Acute Review of Systems Constitutional: No fever, No chills ENT: No hearing loss, No unusual epistaxis Respiratory: No cough, No sputum Abdomen: No pain, No nausea Musculoskeletal: No joint pain Neurologic: No memory loss, No paralysis Psychiatric: No depression symptoms, No anhedonism Heme: No abnormal bleeding/bruising Endo: No fatigue Skin: No rash, No itch All Other Systems: Reviewed and Negative Medications Current Inpatient Medications Medications (Trade) Dose Ordered Sig/Mariama Route Start Time Stop Time Status Last Admin Dose Admin Albuterol (Ventolin Hfa Inhaler) 2 puffs Q6H PRN INH 05/22/17 16:00 06/21/17 15:59 Aspirin (Ecotrin Tab) 81 mg QAM PO 05/23/17 09:00 06/22/17 08:59 05/25/17 09:10 81 MG Atorvastatin Calcium (Lipitor Tab) 80 mg HS PO 05/22/17 21:00 06/21/17 20:59 05/25/17 20:44 80 MG Buspirone HCl (BusPAR TAB) 15 mg TID PO 05/22/17 21:00 06/21/17 20:59 05/25/17 20:45 15 MG Clopidogrel Bisulfate (plAVix TAB) 75 mg QAM PO 05/23/17 09:00 06/22/17 08:59 05/25/17 09:10 75 MG Digoxin (Lanoxin Tab) 0.125 mg DAILY@1600 PO 05/23/17 16:00 06/22/17 15:59 05/25/17 16:17 0.125 MG Nortriptyline HCl (Pamelor Cap) 25 mg HS PO 05/22/17 21:00 06/21/17 20:59 05/25/17 20:44 25 MG Mirtazapine (Remeron Solutab) 60 mg HS PO 05/22/17 21:00 06/21/17 20:59 1/7/18 20:46 60 MG Acetaminophen (Tylenol Tab) 650 mg Q4H PRN PO 05/22/17 16:00 06/21/17 15:59 Al Hydrox/Mg Hydrox/Simethicone (Maalox Max Susp) 15 ml Q4H PRN PO 05/22/17 16:00 06/21/17 15:59 Magnesium Hydroxide (Milk Of Magnesia Susp) 30 ml Q12H PRN PO 05/22/17 16:00 06/21/17 15:59 05/25/17 12:37 30 ML Ondansetron HCl (Zofran Inj) 4 mg Q6H PRN IV 05/22/17 16:00 06/21/17 15:59 Morphine Sulfate (MoRPHine SULFATE INJ) 2 mg Q2H PRN IV 05/22/17 16:00 06/05/17 15:59 05/26/17 01:24 2 MG Nitroglycerin (Nitrostat Tab) 0.4 mg UD PRN SL 05/22/17 16:15 06/21/17 16:14 05/24/17 08:05 0.4 MG Nitroglycerin (Nitro-Dur 0.3 Mg/Hr Patch) 1 patch QAM TD 05/22/17 18:30 06/21/17 18:29 05/25/17 09:11 1 PATCH Lisinopril (Zestril Tab) 5 mg QAM PO 05/24/17 09:00 06/23/17 08:59 05/25/17 09:10 5 MG Carvedilol (Coreg Tab) 6.25 mg BID PO 05/24/17 21:00 06/23/17 20:59 05/25/17 20:44 6.25 MG Oxycodone/ Acetaminophen (Percocet 10-325MG Tab) 1 tab Q6H PRN PO 05/24/17 17:15 06/05/17 15:59 05/26/17 01:25 1 TAB Ranitidine HCl (zANTac TAB) 150 mg BID PO 05/25/17 21:00 06/24/17 20:59 05/25/17 20:46 150 MG Objective Vital Signs Date Time Temp Pulse Resp B/P (MAP) Pulse Ox O2 Delivery O2 Flow Rate FiO2 1/7/18 19:02 36.5 87 18 101/67 (78) 94 Room Air 05/25/17 16:17 84 05/25/17 16:00 Room Air 05/25/17 15:05 36.7 87 18 102/66 (78) 92 Room Air 05/25/17 12:41 92 Room Air 05/25/17 12:30 Room Air 05/25/17 11:00 36.7 81 18 151/76 (101) 96 Nasal Cannula 2.0 05/25/17 08:01 36.9 81 18 113/71 (85) 95 Nasal Cannula 2.0 05/25/17 08:00 91 Room Air 05/25/17 04:15 36.7 81 18 110/76 (87) 96 Nasal Cannula 2.0 05/25/17 04:00 Nasal Cannula 2.0 05/25/17 00:00 Nasal Cannula 2.0 05/24/17 23:49 36.5 77 17 136/76 (96) 97 Nasal Cannula 2.0 Physical Exam Comments: General Appearance: WD/WN, no apparent distress Head: normocephalic, atraumatic Eyes: sclerae normal ENT: hearing grossly normal Neck: supple, + JVD Respiratory/Chest: lungs clear, no respiratory distress, no accessory muscle use, + decreased breath sounds (diminished at bases) Cardiovascular: regular rate, rhythm Abdomen/GI: normal bowel sounds, non tender, soft Extremities/Musculoskelatal: + calf tenderness, + inflammation, + pertinent finding (red streaking along medial aspect of LLE extending to groin) Neurologic/Psych: alert, oriented x 3 Skin: normal color, warm/dry Laboratory Results Last 24 Hours Test 05/25/17 05:57 White Blood Count 6.78 K/uL Red Blood Count 3.41 M/uL Hemoglobin 9.2 g/dL Hematocrit 30.2 % Mean Corpuscular Volume 88.6 fL Mean Corpuscular Hemoglobin 27.0 pg Mean Corpuscular Hemoglobin Concent 30.5 g/dl RDW Standard Deviation 55.7 fL RDW Coefficient of Variation 17.2 % Platelet Count 230 K/uL Mean Platelet Volume 10.6 fL Activated Partial Thromboplast Time 23.2 SECONDS Partial Thromboplastin Ratio 0.9 Sodium Level 139 mmol/L Potassium Level 4.7 mmol/L Chloride Level 107 mmol/L Carbon Dioxide Level 27 mmol/L Anion Gap 5.0 mmol/L Blood Urea Nitrogen 15 mg/dl Creatinine 0.80 mg/dl Est Creatinine Clear Calc Drug Dose 132.7 ml/min Estimated GFR () 114.1 Estimated GFR (Non- 98.5 BUN/Creatinine Ratio 19.1 Random Glucose 90 mg/dl Calcium Level 7.9 mg/dl Assessment and Plan Mr. Morgan is a 56 y/o male with PMHx of Paroxysmal Atrial Fibrillation, Mixed Diastolic/Systolic CHF, S/P Pacer/ICD, H/O DVT/PE, HTN, HLD, DELICIA, and COPD who presents to the ED c/o L-sided pain and LOC. NSTEMI: No changes from yesterday except for dual chamber placement for Friday. Patient had cardiac catheterization on Friday. It revealed occluded proximal RCA. Just 5 weekas ago, placed were stents Patient has been non compliant with plavix It is likely that this lead him to recurrent ventricular arrhythmia as well as his worsened LV dysfunction and dyspnea. No benefit to attempted repeat revascularization at this time as his event has already occurred will stop heparin infusion Appreciate cardio input --continue dual antiplatelet therapy with aspirin and Plavix --start carvedilol 3.125 b.i.d--will attempt to titrate up as BP allows; can discontinue diltiazem and imdur and topical nitrates --plan to start RALPH-inhibitor --continue high-intensity statin --okay to continue digoxin, check digoxin level --device interrogation reviewed with Dr. Curtis. Patient will upgrade to dual chamber on Friday. RLE Pain with Chronic Occlusions: - Skin is mildly erythematous and not significantly warm to touch - may be from chronic occlusions or new occlusion from non adherence from plavix -pain has not worsened. will order doppler arterial in AM. -if positive, may consider consult with vascualr surgeon. CAD S/P Stents with Mixed Chronic Diastolic/Systolic CHF and S/P ICD: - Imdur 15 mg daily Paroxsymal Atrial Fibrillation: - Digoxin 0.125 mg daily and Diltiazem 180 mg daily COPD without Exacerbation: - Ventolin 2 puffs Q6H PRN Melena: - Hemeoccult stool and monitor H&H - states that they may be more of a dark brown almost black Continued [facility] stay due to: multiple IV medications needed, home environment unsafe for pt Discharge planning: uncertain
[2017-05-26] MEDS: MoRPHine SULFATE 2 MG/ML CARP IV PRN ×3 (01:24→18:22)
[2017-05-26] MEDS: OXYCODONE/ACETAMINOPHEN 10/325MG TAB PO PRN ×4 (01:25→20:07)
[2017-05-26 04:16] VITALS: BP 131/83; PULSE 96; TEMP 36.6; O2SAT 93
[2017-05-26 07:01] LABS: BASO % 0.2 %; BASO ABS # 0.01 K/uL (0-0.2); EOS % 1.9 %; EOS ABS # 0.11 K/uL (0-0.5); HEMATOCRIT 30.9 % (42-52); HEMOGLOBIN 9.1 g/dL (14.0-18.0); IG# 0.09 K/uL (0.00-0.02); LYMPH % 35.2 %; MEAN CELL VOLUME 88.5 fL (80-100); MEAN CORPUSCULAR HEMOGLOBIN 26.1 pg (25-34); MEAN CORPUSCULAR HGB CONC 29.4 g/dl (32-36); MEAN PLATELET VOLUME 10.7 fL (7.4-10.4); MONO % 10.6 %; NEUT % 50.5 %; NEUT ABS # 2.87 K/uL (1.4-6.5); PLATELET COUNT 267 K/uL (130-400); RED CELL DISTRIBUTION WIDTH CV 17.3 % (11.5-14.5); RED CELL DISTRIBUTION WIDTH SD 56.5 fL (36.4-46.3); WHITE BLOOD COUNT 5.68 K/uL (4.8-10.8)
[2017-05-26 07:13] LABS: PTT PATIENT 24.3 SECONDS (21.0-31.0)
[2017-05-26 07:49] VITALS: BP 136/97; PULSE 105; TEMP 36.7; O2SAT 95
[2017-05-26] MEDS: CARVEDILOL 6.25 MG TAB PO SCH ×2 (07:57→20:08)
[2017-05-26] MEDS: ASPIRIN 81 MG ECTAB PO SCH (07:57)
[2017-05-26] MEDS: CLOPIDOGREL BISULFATE 75 MG TAB PO SCH (07:57)
[2017-05-26] MEDS: RANITIDINE HCL 150 MG TAB PO SCH ×2 (07:57→20:09)
[2017-05-26] MEDS: NITROGLYCERIN 0.3 MG/HR PATCH TD SCH (07:58)
[2017-05-26] MEDS: LISINOPRIL 5 MG TAB PO SCH (07:58)
[2017-05-26] MEDS: BusPIRone 15 MG TAB PO SCH ×3 (07:58→20:08)
--- NOTE | 2017-05-26 08:11 | Hospitalist Progress Note ---
Hospitalist Progress Note Date of Service May 26, 2017. Subjective Pt evaluation today including: conversation w/ patient, physical exam, chart review, lab review, review of studies, review of inpatient medication list Patient seen and evaluated. No acute events overnight. Reporting leg pain has been improving and home opiates now are more effective. Likely pain was related to lack of blood thinner allowing good perfusion. He is due for ICD/pacer adjustment tomorrow. Constitutional: No fever, No chills Respiratory: No shortness of breath Cardiovascular: No chest pain Abdomen: No pain, No nausea, No vomiting, No diarrhea, No constipation Musculoskeletal: + problem reported (LLE pain - improving), No swelling Male : No dysuria Heme: No abnormal bleeding/bruising Skin: No rash Medications Current Inpatient Medications Medications (Trade) Dose Ordered Sig/Mariama Route Start Time Stop Time Status Last Admin Dose Admin Albuterol (Ventolin Hfa Inhaler) 2 puffs Q6H PRN INH 05/22/17 16:00 06/21/17 15:59 Aspirin (Ecotrin Tab) 81 mg QAM PO 05/23/17 09:00 06/22/17 08:59 05/26/17 07:57 81 MG Atorvastatin Calcium (Lipitor Tab) 80 mg HS PO 05/22/17 21:00 06/21/17 20:59 05/25/17 20:44 80 MG Buspirone HCl (BusPAR TAB) 15 mg TID PO 05/22/17 21:00 06/21/17 20:59 05/26/17 07:58 15 MG Clopidogrel Bisulfate (plAVix TAB) 75 mg QAM PO 05/23/17 09:00 06/22/17 08:59 05/26/17 07:57 75 MG Digoxin (Lanoxin Tab) 0.125 mg DAILY@1600 PO 05/23/17 16:00 06/22/17 15:59 05/25/17 16:17 0.125 MG Nortriptyline HCl (Pamelor Cap) 25 mg HS PO 05/22/17 21:00 06/21/17 20:59 05/25/17 20:44 25 MG Mirtazapine (Remeron Solutab) 60 mg HS PO 05/22/17 21:00 06/21/17 20:59 05/25/17 20:46 60 MG Acetaminophen (Tylenol Tab) 650 mg Q4H PRN PO 05/22/17 16:00 06/21/17 15:59 Al Hydrox/Mg Hydrox/Simethicone (Maalox Max Susp) 15 ml Q4H PRN PO 05/22/17 16:00 06/21/17 15:59 Magnesium Hydroxide (Milk Of Magnesia Susp) 30 ml Q12H PRN PO 05/22/17 16:00 06/21/17 15:59 05/25/17 12:37 30 ML Ondansetron HCl (Zofran Inj) 4 mg Q6H PRN IV 05/22/17 16:00 06/21/17 15:59 Nitroglycerin (Nitrostat Tab) 0.4 mg UD PRN SL 05/22/17 16:15 06/21/17 16:14 05/24/17 08:05 0.4 MG Lisinopril (Zestril Tab) 5 mg QAM PO 05/24/17 09:00 06/23/17 08:59 05/26/17 07:58 5 MG Carvedilol (Coreg Tab) 6.25 mg BID PO 05/24/17 21:00 06/23/17 20:59 05/26/17 07:57 6.25 MG Oxycodone/ Acetaminophen (Percocet 10-325MG Tab) 1 tab Q6H PRN PO 05/24/17 17:15 06/05/17 15:59 05/26/17 07:57 1 TAB Ranitidine HCl (zANTac TAB) 150 mg BID PO 05/25/17 21:00 06/24/17 20:59 05/26/17 07:57 150 MG Enoxaparin Sodium (Lovenox Inj) 111 mg Q12 SQ 05/26/17 09:00 06/25/17 08:59 05/26/17 10:41 111 MG Morphine Sulfate (MoRPHine SULFATE INJ) 2 mg Q6H PRN IV 05/26/17 11:30 06/05/17 15:59 Objective Vital Signs Date Time Temp Pulse Resp B/P (MAP) Pulse Ox O2 Delivery O2 Flow Rate FiO2 05/26/17 07:49 36.7 105 18 136/97 (110) 95 05/26/17 04:16 36.6 96 17 131/83 (99) 93 Room Air 05/26/17 04:00 Room Air Nasal Cannula 05/26/17 00:00 Room Air Nasal Cannula 05/25/17 23:50 36.7 92 17 112/72 (85) 93 Room Air 05/25/17 20:00 Room Air Nasal Cannula 05/25/17 19:02 36.5 87 18 101/67 (78) 94 Room Air 05/25/17 16:17 84 05/25/17 16:00 Room Air 05/25/17 15:05 36.7 87 18 102/66 (78) 92 Room Air 05/25/17 12:41 92 Room Air 05/25/17 12:30 Room Air 05/25/17 11:00 36.7 81 18 151/76 (101) 96 Nasal Cannula 2.0 Physical Exam General Appearance: WD/WN, no apparent distress Eyes: sclerae normal ENT: hearing grossly normal Neck: supple, no JVD, trachea midline Respiratory/Chest: lungs clear, normal breath sounds, no respiratory distress, no accessory muscle use Cardiovascular: regular rate, rhythm Abdomen: normal bowel sounds, non tender, soft Extremities: + pertinent finding (LLE incisions well-approximated no erythema; pulses +; good cap refill) Neurologic/Psychiatric: alert, oriented x 3 Skin: normal color, warm/dry Laboratory Results Last 24 Hours Test 05/26/17 06:11 White Blood Count 5.68 K/uL Red Blood Count 3.49 M/uL Hemoglobin 9.1 g/dL Hematocrit 30.9 % Mean Corpuscular Volume 88.5 fL Mean Corpuscular Hemoglobin 26.1 pg Mean Corpuscular Hemoglobin Concent 29.4 g/dl Platelet Count 267 K/uL Mean Platelet Volume 10.7 fL Neutrophils (%) (Auto) 50.5 % Lymphocytes (%) (Auto) 35.2 % Monocytes (%) (Auto) 10.6 % Eosinophils (%) (Auto) 1.9 % Basophils (%) (Auto) 0.2 % Neutrophils # (Auto) 2.87 K/uL Lymphocytes # (Auto) 2.00 K/uL Monocytes # (Auto) 0.60 K/uL Eosinophils # (Auto) 0.11 K/uL Basophils # (Auto) 0.01 K/uL RDW Standard Deviation 56.5 fL RDW Coefficient of Variation 17.3 % Immature Granulocyte % (Auto) 1.6 % Immature Granulocyte # (Auto) 0.09 K/uL Activated Partial Thromboplast Time 24.3 SECONDS Partial Thromboplastin Ratio 0.9 Assessment and Plan Mr. Morgan is a 56 y/o male with PMHx of Paroxysmal Atrial Fibrillation, Mixed Diastolic/Systolic CHF, S/P Pacer/ICD, H/O DVT/PE, HTN, HLD, DELICIA, and COPD who presents to the ED c/o L-sided pain and LOC. NSTEMI with CAD and Mixed Diastolic/Systolic CHF S/P ICD and Paroxysmal Atrial Fibrillation: - Cardiac cath on 05/23 - reveals occluded proximal RCA where stent was placed approx. 5 weeks ago - patient reporting non-compliance with Plavix - Echo reveals worsening of LV dysfunction; is having recurrent ventricular arrhythmias and ICD firing - Continue ASA 81 mg daily and Plavix 75 mg daily - Atorvastatin 80 mg daily, Coreg 6.25 mg BID, and Lisinopril 5 mg daily - Digoxin 0.125 mg daily - Imdur is on hold - this may be one of the medications that have caused his reported orthostasis - Diltiazem on hold since other anti-hypertensives instituted - Was on heparin gtt but has been D/C'd - will cover with therapeutic Lovenox today and hold on 05/27 due to procedure and likely reinstitute Xarelto - Cardiology following - plan for ICD/dual chamber pacer placement on 05/27 RLE Pain with Chronic Occlusions: IMPROVING - Treatment as above with Plavix/ASA and pain management - appears to be improving with appropriate anticoagulation COPD without Exacerbation: - Ventolin 2 puffs Q6H PRN Melena?: Hemoglobin has remained stable - can continue to monitor Code Status: FULL RESUSCITATION Disposition: ICD/Pacer adjustments on 05/27 and monitor after procedure; pending good recovery possible D/C on 05/28 Continued [facility] stay due to: multiple IV medications needed Discharge planning: home
[2017-05-26] MEDS ORDERED: ENOXAPARIN 1 MG/KG SQ SCH (08:45)
[2017-05-26] MEDS: ENOXAPARIN 120 MG/0.8 ML SYR SQ SCH ×2 (10:41→20:10)
--- NOTE | 2017-05-26 10:48 | DIAGNOSTIC IMAGING REPORT ---
ARTERIAL DOPPLER DUPLEX ULTRASOUND LEFT LOWER EXTREMITY CLINICAL HISTORY: Peripheral vascular disease. Worsening pain. COMPARISON STUDY: CT scan dated 05/22/2017 FINDINGS: There is triphasic flow within the left common femoral artery. The [place] superficial femoral artery and [place] popliteal arteries are occluded. There is aneurysmal dilatation of the distal [place] superficial femoral artery and popliteal artery. There is a left-sided bypass graft extending from the left common femoral artery to the tibioperoneal trunk. There is a high velocity jet at the reimplanted anterior tibial origin, consistent with a stenosis. No flow is visualized within the posterior tibial and peroneal arteries, suggesting occlusion. The right brachial systolic pressure was 113 mmHg. The posterior tibial systolic pressure on the left is 122 mmHg. The dorsalis pedis systolic pressure in the left is 119 mmHg. This yields ankle arm index of 1.1. IMPRESSION: 1. Occlusion of the [place] superficial femoral and popliteal arteries 2. Right superficial femoral artery stent which appears to extend to the distal popliteal/tibioperoneal trunk. 3. Suspected mild stenosis involving the origin of the reimplanted anterior tibial artery 4. Occlusion of the posterior tibial and peroneal arteries. 5. The bypass graft itself is patent 6. Left ankle-brachial index of 1.1 Electronically signed by: Len Martinez M.D. 05/26/2017 10:47 AM Dictated Date/Time: 05/26/2017 9:54 AM
[2017-05-26 11:55] VITALS: BP 119/84; PULSE 109; TEMP 36.8; O2SAT 94
[2017-05-26 15:12] VITALS: BP 108/71; PULSE 94; TEMP 36.6; O2SAT 93
[2017-05-26] MEDS: DIGOXIN 0.125 MG TAB PO SCH (15:29)
[2017-05-26] MEDS: MAGNESIUM HYDROXIDE SUSP 30 ML UDC PO PRN (15:31)
[2017-05-26 19:05] VITALS: BP 116/77; PULSE 95; TEMP 36.7; O2SAT 95
[2017-05-26] MEDS: ATORVASTATIN 40 MG TAB PO SCH (20:08)
[2017-05-26] MEDS: MIRTAZAPINE SOLTAB 15 MG PO SCH (20:09)
[2017-05-26] MEDS: NORTRIPTYLINE HCL 25 MG CAP PO SCH (20:09)
[2017-05-26 23:20] VITALS: BP 101/69; PULSE 105; TEMP 36.7; O2SAT 92
[2017-05-27] VITALS (9 sets, daily range): BP systolic 96–158; BP diastolic 65–79; PULSE 72–120; TEMP 36.5–37.1; O2SAT 93–99
[2017-05-27] MEDS: MoRPHine SULFATE 2 MG/ML CARP IV PRN ×3 (00:31→23:04)
[2017-05-27] MEDS ORDERED: CEFAZOLIN SOD 1000MG/5 ML IV PUSH IV SCH (06:00)
[2017-05-27] MEDS ORDERED: CIMETIDINE 300 MG TAB PO SCH (06:00)
[2017-05-27] MEDS ORDERED: CEFAZOLIN 2000MG IV PUSH 10 ML IV SCH (06:00)
[2017-05-27] MEDS: OXYCODONE/ACETAMINOPHEN 10/325MG TAB PO PRN ×3 (06:15→19:42)
[2017-05-27] MEDS ORDERED: LACTATED RINGER'S 1000ML 1,000 ML IV ONE (08:00)
[2017-05-27] MEDS: CLOPIDOGREL BISULFATE 75 MG TAB PO SCH (08:08)
[2017-05-27] MEDS: BusPIRone 15 MG TAB PO SCH ×3 (08:08→19:45)
[2017-05-27] MEDS: RANITIDINE HCL 150 MG TAB PO SCH ×2 (08:08→19:44)
[2017-05-27] MEDS: LISINOPRIL 5 MG TAB PO SCH (08:08)
[2017-05-27] MEDS: ASPIRIN 81 MG ECTAB PO SCH (08:09)
[2017-05-27] MEDS: CARVEDILOL 6.25 MG TAB PO SCH ×2 (08:09→21:00)
[2017-05-27] MEDS: ENOXAPARIN 120 MG/0.8 ML SYR SQ SCH (08:10)
--- NOTE | 2017-05-27 08:31 | Cardiology Follow-Up ---
Subjective Date of Service: May 27, 2017. Pt evaluation today including: conversation w/ patient, physical exam, lab review, review of studies, review of inpatient medication list History of Present Illness Patient feels well today, no complaints. We are planning device replacement today, this will be a new system with a new atrial and ventricular lead. Social History Smoking Status: Former Smoker History of Alcohol Use: No Review of Systems Respiratory: No shortness of breath Cardiac: No chest pain Medications Cardiovascular: Item Value Date Time Enoxaparin Sodium 111 mg 05/26/17 0900 (Lovenox Inj) Q12/SQ 05/26/172009 Carvedilol 6.25 mg 05/24/17 2100 (Coreg Tab) BID/PO 05/26/172007 Lisinopril 5 mg 05/24/17 0900 (Zestril Tab) QAM/PO 05/26/17 0758 Digoxin 0.125 mg 05/23/17 1600 (Lanoxin Tab) DAILY@1600/PO 05/26/17 1529 Aspirin 81 mg 05/23/17 0900 (Ecotrin Tab) QAM/PO 05/26/17 0757 Clopidogrel 75 mg 05/23/17 0900 Bisulfate QAM/PO 05/26/17 0757 (plAVix TAB) Atorvastatin 80 mg 05/22/17 2100 Calcium HS/PO 05/26/172007 (Lipitor Tab) Objective Vital Signs Past 12 Hours Date Time Temp Pulse Resp B/P (MAP) Pulse Ox O2 Delivery O2 Flow Rate FiO2 05/27/17 07:57 37.1 72 18 158/72 (100) 95 05/27/17 03:49 Room Air 05/27/17 03:30 36.9 96 22 119/77 (91) 93 Room Air 05/26/17 23:36 Room Air 05/26/17 23:20 36.7 105 22 101/69 (80) 92 Room Air 05/26/17 20:08 Room Air Last Recorded Weight-Kilograms: 105.300 Physical Exam Constitutional: Level of Distress: NAD Lungs: Auscultation: breath sounds normal Cardiovascular: Heart Auscultation: RRR, no murmurs Extremities: no edema Assessment and Plan #1. Cardiomyopathy: He has a severe cardiomyopathy and needs to be on appropriate medications. He is on low doses of carvedilol and lisinopril, these have been increased this admission I'm reluctant to go up further. In the future we can consider Entresto or other options, but for the moment I would leave things alone. He seems to be tolerating them well. #2. ICD: I remain concerned about his ICD lead which appears to be failing. I am planning on replacing that today with an upgrade to a dual-chamber device. This is essentially a new system, hopefully the vein will be open on the left and we will confirm that preprocedure with a dye injection. He was pretreated for a possible dye allergy and understands the potential risk of receiving IV dye. If the vessel is not open we can implant a totally new system from the right and remove the ICD on the left. He understands and agrees. I reviewed the indications, procedure, risks and alternatives with him including risks of conscious sedation. He understands and agrees to proceed. Consent for the procedure and for conscious sedation obtained. Thank you for allowing me to participate in his care.
--- NOTE | 2017-05-27 09:39 | Hospitalist Progress Note ---
Hospitalist Progress Note Date of Service May 27, 2017. Subjective Pt evaluation today including: conversation w/ patient, physical exam, chart review, lab review, review of studies, review of inpatient medication list Patient seen and evaluated. Telemetry reviewed and has been sinus with occ. PVCs in the 90s. He denies any further chest pain and hasn't had any firing of his ICD. He is due to have dual chamber pacer and ICD replacement. He is reporting leg pain is still intermittently painful but is improving since admission. Constitutional: No fever, No chills Respiratory: No cough, No shortness of breath Cardiovascular: No chest pain Abdomen: No pain, No nausea, No vomiting, No diarrhea, No constipation Musculoskeletal: No swelling, No calf pain Male : No dysuria Heme: No abnormal bleeding/bruising Skin: No rash Medications Current Inpatient Medications Medications (Trade) Dose Ordered Sig/Mariama Route Start Time Stop Time Status Last Admin Dose Admin Albuterol (Ventolin Hfa Inhaler) 2 puffs Q6H PRN INH 05/22/17 16:00 06/21/17 15:59 Aspirin (Ecotrin Tab) 81 mg QAM PO 05/23/17 09:00 06/22/17 08:59 05/27/17 08:09 81 MG Atorvastatin Calcium (Lipitor Tab) 80 mg HS PO 05/22/17 21:00 06/21/17 20:59 05/26/17 20:08 80 MG Buspirone HCl (BusPAR TAB) 15 mg TID PO 05/22/17 21:00 06/21/17 20:59 05/27/17 08:08 15 MG Clopidogrel Bisulfate (plAVix TAB) 75 mg QAM PO 05/23/17 09:00 06/22/17 08:59 05/27/17 08:08 75 MG Digoxin (Lanoxin Tab) 0.125 mg DAILY@1600 PO 05/23/17 16:00 06/22/17 15:59 05/26/17 15:29 0.125 MG Nortriptyline HCl (Pamelor Cap) 25 mg HS PO 05/22/17 21:00 06/21/17 20:59 05/26/17 20:09 25 MG Mirtazapine (Remeron Solutab) 60 mg HS PO 05/22/17 21:00 06/21/17 20:59 05/26/17 20:09 60 MG Acetaminophen (Tylenol Tab) 650 mg Q4H PRN PO 05/22/17 16:00 06/21/17 15:59 Al Hydrox/Mg Hydrox/Simethicone (Maalox Max Susp) 15 ml Q4H PRN PO 05/22/17 16:00 06/21/17 15:59 Magnesium Hydroxide (Milk Of Magnesia Susp) 30 ml Q12H PRN PO 05/22/17 16:00 06/21/17 15:59 05/26/17 15:31 30 ML Ondansetron HCl (Zofran Inj) 4 mg Q6H PRN IV 05/22/17 16:00 06/21/17 15:59 Nitroglycerin (Nitrostat Tab) 0.4 mg UD PRN SL 05/22/17 16:15 06/21/17 16:14 05/24/17 08:05 0.4 MG Lisinopril (Zestril Tab) 5 mg QAM PO 05/24/17 09:00 06/23/17 08:59 05/27/17 08:08 5 MG Carvedilol (Coreg Tab) 6.25 mg BID PO 05/24/17 21:00 06/23/17 20:59 05/27/17 08:09 6.25 MG Oxycodone/ Acetaminophen (Percocet 10-325MG Tab) 1 tab Q6H PRN PO 05/24/17 17:15 06/05/17 15:59 05/27/17 06:15 1 TAB Ranitidine HCl (zANTac TAB) 150 mg BID PO 05/25/17 21:00 06/24/17 20:59 05/27/17 08:08 150 MG Morphine Sulfate (MoRPHine SULFATE INJ) 2 mg Q6H PRN IV 05/26/17 11:30 06/05/17 15:59 05/27/17 08:10 2 MG Lactated Ringer's 1,000 ml @ 15 mls/hr Q24H ONCE IV 05/27/17 08:00 05/28/17 07:59 05/27/17 08:08 15 MLS/HR Cefazolin Sodium 10 ml @ 2.5 mls/min PREOP IV 05/27/17 06:00 05/27/17 18:00 Prednisone (PredniSONE TAB) 50 mg Q6 PO 05/27/17 00:00 05/27/17 12:01 05/27/17 08:08 50 MG Diphenhydramine HCl (Benadryl Cap) 50 mg TODAY@0600 PO 05/27/17 06:00 05/27/17 18:00 Cimetidine (Tagamet Tab) 300 mg TODAY@0600 PO 05/27/17 06:00 05/27/17 18:00 Objective Vital Signs Date Time Temp Pulse Resp B/P (MAP) Pulse Ox O2 Delivery O2 Flow Rate FiO2 05/27/17 07:57 37.1 72 18 158/72 (100) 95 05/27/17 03:49 Room Air 05/27/17 03:30 36.9 96 22 119/77 (91) 93 Room Air 05/26/17 23:36 Room Air 05/26/17 23:20 36.7 105 22 101/69 (80) 92 Room Air 05/26/17 20:08 Room Air 05/26/17 19:05 36.7 95 18 116/77 (90) 95 Room Air 05/26/17 16:00 Room Air 05/26/17 15:29 81 05/26/17 15:12 36.6 94 16 108/71 (83) 93 Room Air 05/26/17 12:00 Room Air 05/26/17 11:55 36.8 109 16 119/84 (96) 94 Physical Exam General Appearance: WD/WN, no apparent distress Eyes: sclerae normal ENT: hearing grossly normal Neck: supple, no JVD, trachea midline Respiratory/Chest: lungs clear, normal breath sounds, no respiratory distress, no accessory muscle use Cardiovascular: regular rate, rhythm, no gallop, no murmur Abdomen: normal bowel sounds, non tender, soft Extremities: no pedal edema, normal capillary refill Neurologic/Psychiatric: alert, oriented x 3 Skin: normal color, warm/dry Assessment and Plan Mr. Morgan is a 56 y/o male with PMHx of Paroxysmal Atrial Fibrillation, Mixed Diastolic/Systolic CHF, S/P Pacer/ICD, H/O DVT/PE, HTN, HLD, DELICIA, and COPD who presents to the ED c/o L-sided pain and LOC. NSTEMI with CAD and Mixed Diastolic/Systolic CHF S/P ICD and Paroxysmal Atrial Fibrillation: STABLE - Cardiac cath on 05/23 - reveals occluded proximal RCA where stent was placed approx. 5 weeks ago - patient reporting non-compliance with Plavix - Echo reveals worsening of LV dysfunction; is having recurrent ventricular arrhythmias and ICD firing - none since admission - Continue ASA 81 mg daily and Plavix 75 mg daily - Atorvastatin 80 mg daily, Coreg 6.25 mg BID, and Lisinopril 5 mg daily - Digoxin 0.125 mg daily - Imdur and Diltiazem on hold - likely will be held on D/C as adjustments made with BB and ACEI to optimize cardiac function - Will need placed back on Xarelto and appreciate cardiology's input with this after procedure - Cardiology following - plan for ICD/dual chamber pacer placement today RLE Pain with Chronic Occlusions: IMPROVING - Treatment as above with Plavix/ASA and pain management - appears to be improving with appropriate anticoagulation COPD without Exacerbation: - Ventolin 2 puffs Q6H PRN Melena?: Hemoglobin has remained stable - can continue to monitor Code Status: FULL RESUSCITATION Disposition: ICD/Pacer adjustments on 05/27 and monitor after procedure; pending good recovery possible D/C on 05/28 - Is thinking he would like to follow with cariology here in [place] even though living in [facility] - 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
[2017-05-27] MEDS ORDERED: BACITRACIN OINT 0.9 GM PKT ONE (14:37)
[2017-05-27] MEDS ORDERED: BACITRACIN 50000 UNIT VIAL ONE (14:37)
[2017-05-27] MEDS ORDERED: LIDOCAINE HCL 1% 20 ML VIAL ONE ×2 (14:37→14:38)
[2017-05-27] MEDS ORDERED: CEFAZOLIN SOD 1 GM VIAL ONE (14:48)
--- NOTE | 2017-05-27 15:00 | Pre Sedation Assessment ---
Pre Sedation Assessment General Date of Sedation: May 27, 2017. Vital Signs Past 12 Hours Date Time Temp Pulse Resp B/P (MAP) Pulse Ox O2 Delivery O2 Flow Rate FiO2 05/27/17 12:03 36.7 104 20 124/71 (88) 99 05/27/17 12:00 Room Air 05/27/17 08:00 Room Air 05/27/17 07:57 37.1 72 18 158/72 (100) 95 05/27/17 03:49 Room Air 05/27/17 03:30 36.9 96 22 119/77 (91) 93 Room Air Review Cardiovascular: regular rate, rhythm, no edema Lungs: chest non-tender, lungs clear Pre-Sedation Airway Assessment Smoking Status: Former Smoker Hx of Sleep Apnea: Yes Hx of difficult intubation: No Short Thick Neck: No Thyro-mental Distance: > 3 Finger Breadths Oral Cavity: WNL Mallampati Classification: Class II ASA Classification: Class III NPO Status Date of Last Intake of Fluids: May 27, 2017 Time of Last Intake of Fluids: 0000 Date of Last Intake of Solids: May 26, 2017 Time of Last Intake of Solids: 2100 Procedure Planning Contraindications for Sedation: None Current Medications Reviewed: Yes Notes The planned sedation has been discussed with the patient. Informed Consent was obtained. I have identified the patient, determined the appropriateness of sedation and have assessed the patient immediately prior to the procedure. All medicine(s) and interventions are by my order.
[2017-05-27] MEDS ORDERED: MIDAZOLAM HCL 5 MG/ML 1 ML VIAL ONE (15:01)
[2017-05-27] MEDS ORDERED: FENTANYL CITRATE INJ 50 MCG/1 ML 2 ML VIAL ONE ×2 (15:02→16:20)
[2017-05-27] MEDS ORDERED: MIDAZOLAM HCL 1 MG/ML 2ML VIAL ONE (16:19)
--- NOTE | 2017-05-27 16:40 | [facility] Operative Report ---
Operative Report Operative Date May 27, 2017. 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 Curtis Adobe Layer Helper Surgeon(s) none Estimated Blood Loss 30 cc Findings Patent left subclavian vein Good atrial and ventricular lead thresholds on the new lead Specimens Old ICD, return to [facility] Anesthesia local with sedation Complication(s) None Disposition PCU Description of Procedure After obtaining informed consent for the procedure, the patient was brought to the laboratory being NPO after midnight. After identification in the laboratory dye was injected in the left arm IV site to opacify the left subclavian vein. The subclavian vein was identified and found to be free of obstruction. He was prepped and draped in the standard sterile manner for a left-sided device replacement. The left prepectoral region was anesthetized with 1% lidocaine local anesthetic and left axillary venipuncture was performed by percutaneous technique and a guidewire placed through the left subclavian vein into the superior vena cava. There appeared to be several areas of scar formation and a long Glidewire was used for access. The area was further infiltrated with 1% lidocaine local anesthetic and a 2 cm incision was made through the old implant scar and carried down to the pectoralis fascia. A 10.5 [place] Medtronic lead introducer was placed over the guidewire into the left subclavian vein, the dilator and guidewire were removed and a bipolar dual coil active fixation steroid tipped ventricular ICD lead was advanced through the introducer into the superior vena cava. Predilation with an 8 [place] and a 9 -1/2 [place] dilator were required for this procedure. A guidewire was placed through the introducer and the introducer was stripped from the lead and guidewire. An 8 [place] Medtronic lead introducer was placed over the guidewire into the left subclavian vein, the dilator and guidewire were removed and a bipolar active fixation steroid tipped atrial lead was advanced through the introducer into the superior vena cava. A guidewire was placed back through the introducer and the introducer was stripped from the lead and guidewire. Using a curved stylette the ventricular lead was advanced through the right ventricular outflow tract into the pulmonary artery and then using a straight stylette was positioned in the right ventricular apex. Care was taken that the distal electrodes in the proximal biventricular defibrillator electrode did not touch the old lead. The screw was extended fixing the lead in position. Pacing and sensing thresholds were evaluated in bipolar configuration and are recorded on the implant data sheet. Using a curved stylette the atrial lead was positioned in the region of the atrial appendage and the screw extended fixing the lead in position. Pacing and sensing thresholds were evaluated in bipolar configuration and are recorded on the implant data sheet. Once the leads were in position they were attached to the anterior pectoralis fascia using 2 sutures of 2-0 silk around each lead collar. The incision was extended the full extent of the old implant scar and carried down to the ICD generator. The old ICD generator was removed from the pocket. The old ICD lead was capped using 3 lead caps. A new ICD was attached to the new leads and found to be functioning normally. The ICD was placed in the pocket with the leads coiled beneath it. The incision was closed with a running double subcutaneous closure of 3-0 V-Lock absorbable suture followed by a running subcuticular skin closure of 4-0 V lock absorbable suture. Bacitracin ointment was placed on the incision and a pressure dressing applied. I attest to the content of the Intraoperative Record and any orders documented therein. Any exceptions are noted below.
--- NOTE | 2017-05-27 16:42 | Post Sedation Assessment ---
Post Sedation Assessment General Date of Sedation May 27, 2017. Vital Signs: Vital Signs Past 12 Hours Date Time Temp Pulse Resp B/P (MAP) Pulse Ox O2 Delivery O2 Flow Rate FiO2 05/27/17 12:03 36.7 104 20 124/71 (88) 99 05/27/17 12:00 Room Air 05/27/17 08:00 Room Air 05/27/17 07:57 37.1 72 18 158/72 (100) 95 Post Procedure Recovery Score Activity: (2) Moves 4 extremities * Respiration: (2) Deep breath/cough Circulation: (2) +/-20% PreAnes Value Consciousness: (2) Fully Awake Oxygen Saturation: (2) > 92% On Room Air Post Anesthesia Score: 10 Discharge Sedation Level of Care: Fast Track Phase II Post Sedation Plan On clinical assessment, the patient appears to have tolerated the sedation without complications. Patient is recovering as anticipated. Patient will continue to be monitored by nursing and may be discharged when sedation discharge criteria are met per below protocol. Upon Completions of procedure and additional 15 minutes continue every 5 minute vital signs and the P.A.R. score; then discharge to a Phase I or Fast Track to Phase II per the following guidelines: * Discharge Patient to appropriate Phase II area if PAR is 8 or greater or return to pre- procedure baseline. The post - procedure orders will be as directed. * If PAR score is less than 8 or not return to pre-procedure baseline then patient will follow Phase I monitoring till PAR is reached for Phase II. The Phase I may be done in procedure room or may call to secure a Phase I area. * If naloxone or flumazenil are used for reversal, hold in Phase I for an additional 60 -120 minutes before discharge to Phase II. Please call the Sedation Physician to re-evaluate and complete post-note for discharge to Phase II area. Do NOT discharge from procedure sedation or Phase 1 until post- sedation evaluation note is complete by procedure /sedation MD Sedation Discharge Instructions to be given to the patient at discharge to home.
[2017-05-27] MEDS: DIGOXIN 0.125 MG TAB PO SCH (17:12)
[2017-05-27] MEDS: ATORVASTATIN 40 MG TAB PO SCH (19:42)
[2017-05-27] MEDS: NORTRIPTYLINE HCL 25 MG CAP PO SCH (19:44)
[2017-05-27] MEDS: MIRTAZAPINE SOLTAB 15 MG PO SCH (19:45)
[2017-05-27] MEDS ORDERED: ACETAMINOPHEN IV 100 ML IV PRN (21:15)
[2017-05-27] MEDS ORDERED: SODIUM CHLORIDE 0.9% 500ML 500 ML IV ONE (21:30)
[2017-05-27] MEDS: CEFAZOLIN IV 2,000 MG in SYRINGE 0 ML IV SCH (23:02)
[2017-05-28] VITALS (8 sets, daily range): BP systolic 90–103; BP diastolic 64–75; PULSE 84–110; TEMP 36.5–36.8; O2SAT 91–98
[2017-05-28] MEDS: OXYCODONE/ACETAMINOPHEN 10/325MG TAB PO PRN ×3 (05:36→18:20)
[2017-05-28 05:59] LABS: EOS % 0.2 %; EOS ABS # 0.02 K/uL (0-0.5); HEMOGLOBIN 9.8 g/dL (14.0-18.0); IG# 0.07 K/uL (0.00-0.02); LYMPH % 16.7 %; LYMPH ABS # 1.45 K/uL (1.2-3.4); MEAN CELL VOLUME 84.9 fL (80-100); MEAN CORPUSCULAR HGB CONC 30.6 g/dl (32-36); MEAN PLATELET VOLUME 10.1 fL (7.4-10.4); MONO % 14.5 %; MONO ABS # 1.26 K/uL (0.11-0.59); NEUT % 67.8 %; NEUT ABS # 5.86 K/uL (1.4-6.5); PLATELET COUNT 289 K/uL (130-400); RED CELL DISTRIBUTION WIDTH CV 17.1 % (11.5-14.5); RED CELL DISTRIBUTION WIDTH SD 53.4 fL (36.4-46.3); WHITE BLOOD COUNT 8.66 K/uL (4.8-10.8)
[2017-05-28 06:27] LABS: CALCIUM 8.1 mg/dl (8.5-10.1); CREATININE 1.11 mg/dl (0.60-1.40); POTASSIUM 4.5 mmol/L (3.5-5.1)
--- NOTE | 2017-05-28 07:41 | DIAGNOSTIC IMAGING REPORT ---
CHEST 2 VIEWS ROUTINE CLINICAL HISTORY: EXACT TIME ORDERED Evaluate for pneumothorax and lead placement COMPARISON STUDY: 11/17/2014 FINDINGS: Interval placement of a permanent bipolar cardiac pacemaker/defibrillator. Pre-existing residual unipolar cardiac pacer. No evidence of pneumothorax. Leads are in good position. Subsegmental atelectasis left base. IMPRESSION: Interval placement of a permanent bipolar cardiac pacemaker/fibrillator. No evidence of pneumothorax. Atelectasis left base. The above report was generated using voice recognition software. It may contain grammatical, syntax or spelling errors. Electronically signed by: Yaron Lott M.D. 05/28/2017 7:40 AM Dictated Date/Time: 05/28/2017 7:39 AM
[2017-05-28] MEDS: RANITIDINE HCL 150 MG TAB PO SCH ×2 (08:37→21:21)
[2017-05-28] MEDS: BusPIRone 15 MG TAB PO SCH ×3 (08:37→21:20)
[2017-05-28] MEDS: CEFAZOLIN IV 2,000 MG in SYRINGE 0 ML IV SCH ×2 (08:37→16:42)
[2017-05-28] MEDS: ASPIRIN 81 MG ECTAB PO SCH (08:38)
[2017-05-28] MEDS: CLOPIDOGREL BISULFATE 75 MG TAB PO SCH (08:38)
[2017-05-28] MEDS: CARVEDILOL 6.25 MG TAB PO SCH ×2 (08:38→21:20)
[2017-05-28] MEDS: LISINOPRIL 5 MG TAB PO SCH (08:38)
[2017-05-28] MEDS: KETOROLAC TROMETHAMINE 10 MG TAB PO PRN ×2 (08:43→16:42)
--- NOTE | 2017-05-28 09:30 | Cardiology Follow-Up ---
Subjective Date of Service: May 28, 2017. Pt evaluation today including: conversation w/ patient, physical exam, lab review, review of studies, review of inpatient medication list History of Present Illness He is having the expected incisional discomfort, he also reports that he was very short of breath walking to the bathroom today. He is laying supine in bed and is not short of breath. Social History Smoking Status: Former Smoker History of Alcohol Use: No Review of Systems Respiratory: No cough, No shortness of breath Cardiac: No chest pain Objective Vital Signs Past 12 Hours Date Time Temp Pulse Resp B/P (MAP) Pulse Ox O2 Delivery O2 Flow Rate FiO2 05/28/17 08:00 36.8 86 18 102/65 (77) 97 05/28/17 04:00 97 Room Air 05/28/17 03:27 36.8 110 16 91/64 (73) 95 Room Air 05/28/17 00:08 36.5 105 16 90/66 (74) 91 Room Air 05/28/17 00:00 97 Room Air 05/27/17 23:00 114 107/68 (81) Last Recorded Weight-Kilograms: 103.100 Physical Exam Constitutional: Level of Distress: NAD Lungs: Auscultation: breath sounds normal Cardiovascular: Heart Auscultation: RRR, no murmurs, no rubs Extremities: no edema Incision is clean and dry. There is ecchymosis around the site, but no hematoma. Dressing changed. Data Laboratory Results: Last 24 Hours Test 05/28/17 05:34 White Blood Count 8.66 K/uL Red Blood Count 3.77 M/uL Hemoglobin 9.8 g/dL Hematocrit 32.0 % Mean Corpuscular Volume 84.9 fL Mean Corpuscular Hemoglobin 26.0 pg Mean Corpuscular Hemoglobin Concent 30.6 g/dl Platelet Count 289 K/uL Mean Platelet Volume 10.1 fL Neutrophils (%) (Auto) 67.8 % Lymphocytes (%) (Auto) 16.7 % Monocytes (%) (Auto) 14.5 % Eosinophils (%) (Auto) 0.2 % Basophils (%) (Auto) 0.0 % Neutrophils # (Auto) 5.86 K/uL Lymphocytes # (Auto) 1.45 K/uL Monocytes # (Auto) 1.26 K/uL Eosinophils # (Auto) 0.02 K/uL Basophils # (Auto) 0.00 K/uL RDW Standard Deviation 53.4 fL RDW Coefficient of Variation 17.1 % Immature Granulocyte % (Auto) 0.8 % Immature Granulocyte # (Auto) 0.07 K/uL Sodium Level 137 mmol/L Potassium Level 4.5 mmol/L Chloride Level 105 mmol/L Carbon Dioxide Level 26 mmol/L Anion Gap 6.0 mmol/L Blood Urea Nitrogen 24 mg/dl Creatinine 1.11 mg/dl Est Creatinine Clear Calc Drug Dose 94.3 ml/min Estimated GFR () 84.4 Estimated GFR (Non- 72.8 BUN/Creatinine Ratio 21.8 Random Glucose 116 mg/dl Calcium Level 8.1 mg/dl Imaging: Chest x-ray shows good lead position, no pneumothorax EKG: Sinus rhythm, appropriate pacemaker inhibition Telemetry reviewed: Sinus rhythm, appropriate ICD function ICD evaluation: Stable pacing and sensing characteristics Assessment and Plan #1. Cardiomyopathy: He has a severe cardiomyopathy and needs to be on appropriate medications. He is on low doses of carvedilol and lisinopril, these have been increased this admission I'm reluctant to go up further. In the future we can consider Entresto or other options, but for the moment I would leave things alone. He seems to be tolerating them well. #2. ICD: He is doing well postop day #1 following new device implantation with removal of his old ICD, the old lead remains in place. The device is working well. From the standpoint of the surgery he could go home at any time. #3. Shortness of breath with exertion: He does not seem to be in heart failure, his weight is down a little bit but it is a bed scale not as standing scale so may be inaccurate. He does have severe left heart dysfunction and perhaps that is the reason. I doubt it is related to the procedure or the device. Thank you for allowing me to participate in his care.
[2017-05-28] MEDS: POLYETHYLENE (MIRALAX) 17 GM PACK PO SCH ×2 (09:39→21:19)
--- NOTE | 2017-05-28 13:34 | Hospitalist Progress Note ---
Hospitalist Progress Note Date of Service May 28, 2017. (Michaela Duong, PA-C) Subjective Pt evaluation today including: conversation w/ patient, physical exam, chart review, lab review, review of studies, review of inpatient medication list Patient seen and evaluated. Had revision of pacer/ICD on 05/27. Reporting chest is sore but tolerable. BP has been low this AM and has been intermittently. Is asymptomatic with it as he denies dizziness and is mentating appropriately. Does report GROSSMAN from the bed to bathroom. Does not appear volume overloaded. Lungs clear and no JVD. Laying flat in bed without SOB. He states he was on diuretics years ago but thinks they were stopped and thinks this was because of his low BP. Constitutional: No fever, No chills Respiratory: + dyspnea on exertion, No cough, No dyspnea at rest Cardiovascular: + chest pain (around implantation site), No orthopnea, No palpitations Abdomen: No pain, No nausea, No vomiting, No diarrhea, No constipation, No GI bleeding Heme: No abnormal bleeding/bruising (Michaela Duong, PA-C) Medications Current Inpatient Medications Medications (Trade) Dose Ordered Sig/Mariama Route Start Time Stop Time Status Last Admin Dose Admin Albuterol (Ventolin Hfa Inhaler) 2 puffs Q6H PRN INH 05/22/17 16:00 06/21/17 15:59 Aspirin (Ecotrin Tab) 81 mg QAM PO 05/23/17 09:00 06/22/17 08:59 05/28/17 08:38 81 MG Atorvastatin Calcium (Lipitor Tab) 80 mg HS PO 05/22/17 21:00 06/21/17 20:59 05/27/17 19:42 80 MG Buspirone HCl (BusPAR TAB) 15 mg TID PO 05/22/17 21:00 06/21/17 20:59 05/28/17 13:15 15 MG Clopidogrel Bisulfate (plAVix TAB) 75 mg QAM PO 05/23/17 09:00 06/22/17 08:59 05/28/17 08:38 75 MG Digoxin (Lanoxin Tab) 0.125 mg DAILY@1600 PO 05/23/17 16:00 06/22/17 15:59 05/27/17 17:12 0.125 MG Nortriptyline HCl (Pamelor Cap) 25 mg HS PO 05/22/17 21:00 06/21/17 20:59 05/27/17 19:44 25 MG Mirtazapine (Remeron Solutab) 60 mg HS PO 05/22/17 21:00 06/21/17 20:59 05/27/17 19:45 60 MG Acetaminophen (Tylenol Tab) 650 mg Q4H PRN PO 05/22/17 16:00 06/21/17 15:59 Al Hydrox/Mg Hydrox/Simethicone (Maalox Max Susp) 15 ml Q4H PRN PO 05/22/17 16:00 06/21/17 15:59 Magnesium Hydroxide (Milk Of Magnesia Susp) 30 ml Q12H PRN PO 05/22/17 16:00 06/21/17 15:59 05/26/17 15:31 30 ML Ondansetron HCl (Zofran Inj) 4 mg Q6H PRN IV 05/22/17 16:00 06/21/17 15:59 Nitroglycerin (Nitrostat Tab) 0.4 mg UD PRN SL 05/22/17 16:15 06/21/17 16:14 05/24/17 08:05 0.4 MG Lisinopril (Zestril Tab) 5 mg QAM PO 05/24/17 09:00 06/23/17 08:59 05/28/17 08:38 5 MG Carvedilol (Coreg Tab) 6.25 mg BID PO 05/24/17 21:00 06/23/17 20:59 05/28/17 08:38 6.25 MG Oxycodone/ Acetaminophen (Percocet 10-325MG Tab) 1 tab Q6H PRN PO 05/24/17 17:15 06/05/17 15:59 05/28/17 12:19 1 TAB Ranitidine HCl (zANTac TAB) 150 mg BID PO 05/25/17 21:00 06/24/17 20:59 05/28/17 08:37 150 MG Morphine Sulfate (MoRPHine SULFATE INJ) 2 mg Q6H PRN IV 05/26/17 11:30 06/05/17 15:59 05/27/17 23:04 2 MG Cefazolin Sodium 2000 mg/Syringe 10 ml @ 2.5 mls/min Q8H IV 05/27/17 23:00 05/28/17 22:59 05/28/17 08:37 2.5 MLS/MIN Ketorolac Tromethamine (Toradol Tab) 10 mg Q6H PRN PO 05/27/17 16:45 06/01/17 16:44 05/28/17 08:43 10 MG Acetaminophen 100 ml @ 400 mls/hr Q8H PRN IV 05/27/17 21:15 06/26/17 21:14 05/27/17 21:44 400 MLS/HR Polyethylene (Miralax Powder Packet) 17 gm BID PO 05/28/17 09:30 06/27/17 09:29 05/28/17 09:39 17 GM (Michaela Duong PA-C) Objective Vital Signs Date Time Temp Pulse Resp B/P (MAP) Pulse Ox O2 Delivery O2 Flow Rate FiO2 05/28/17 12:00 Room Air 05/28/17 11:44 36.8 84 16 95/73 (80) 98 05/28/17 08:00 Room Air 05/28/17 08:00 36.8 86 18 102/65 (77) 97 05/28/17 04:00 97 Room Air 05/28/17 03:27 36.8 110 16 91/64 (73) 95 Room Air 05/28/17 00:08 36.5 105 16 90/66 (74) 91 Room Air 05/28/17 00:00 97 Room Air 05/27/17 23:00 114 107/68 (81) 05/27/17 20:00 99 Room Air 05/27/17 19:12 36.5 120 18 96/65 (75) 99 Room Air 05/27/17 17:56 109 20 100/70 (80) 93 Room Air 05/27/17 17:19 96 18 118/71 (87) 95 Room Air 05/27/17 17:12 105 05/27/17 17:03 36.6 109 20 114/79 (91) 95 Room Air 05/27/17 17:00 Room Air 05/27/17 16:50 103 16 107/71 (83) 05/27/17 16:40 103 16 108/75 (86) 96 Room Air (Michaela Duong PA-C) Physical Exam General Appearance: WD/WN, no apparent distress Eyes: sclerae normal ENT: hearing grossly normal Neck: supple, no JVD, trachea midline Respiratory/Chest: no respiratory distress, no accessory muscle use, + crackles (minimal bases b/l) Cardiovascular: regular rate, rhythm, no gallop, no murmur Abdomen: normal bowel sounds, non tender, soft Extremities: no pedal edema Neurologic/Psychiatric: alert, oriented x 3 Skin: normal color, warm/dry (Michaela Duong PA-C) Laboratory Results Last 24 Hours Test 05/28/17 05:34 White Blood Count 8.66 K/uL Red Blood Count 3.77 M/uL Hemoglobin 9.8 g/dL Hematocrit 32.0 % Mean Corpuscular Volume 84.9 fL Mean Corpuscular Hemoglobin 26.0 pg Mean Corpuscular Hemoglobin Concent 30.6 g/dl Platelet Count 289 K/uL Mean Platelet Volume 10.1 fL Neutrophils (%) (Auto) 67.8 % Lymphocytes (%) (Auto) 16.7 % Monocytes (%) (Auto) 14.5 % Eosinophils (%) (Auto) 0.2 % Basophils (%) (Auto) 0.0 % Neutrophils # (Auto) 5.86 K/uL Lymphocytes # (Auto) 1.45 K/uL Monocytes # (Auto) 1.26 K/uL Eosinophils # (Auto) 0.02 K/uL Basophils # (Auto) 0.00 K/uL RDW Standard Deviation 53.4 fL RDW Coefficient of Variation 17.1 % Immature Granulocyte % (Auto) 0.8 % Immature Granulocyte # (Auto) 0.07 K/uL Sodium Level 137 mmol/L Potassium Level 4.5 mmol/L Chloride Level 105 mmol/L Carbon Dioxide Level 26 mmol/L Anion Gap 6.0 mmol/L Blood Urea Nitrogen 24 mg/dl Creatinine 1.11 mg/dl Est Creatinine Clear Calc Drug Dose 94.3 ml/min Estimated GFR () 84.4 Estimated GFR (Non- 72.8 BUN/Creatinine Ratio 21.8 Random Glucose 116 mg/dl Calcium Level 8.1 mg/dl (Michaela Duong PA-C) Assessment and Plan Mr. Morgan is a 56 y/o male with PMHx of Paroxysmal Atrial Fibrillation, Mixed Diastolic/Systolic CHF, S/P Pacer/ICD, H/O DVT/PE, HTN, HLD, DELICIA, and COPD who presents to the ED c/o L-sided pain and LOC. NSTEMI with CAD and Mixed Diastolic/Systolic CHF S/P ICD and Paroxysmal Atrial Fibrillation: STABLE - Cardiac cath on 05/23 - reveals occluded proximal RCA where stent was placed approx. 5 weeks ago - patient reporting non-compliance with Plavix - Echo reveals worsening of LV dysfunction; is having recurrent ventricular arrhythmias and ICD firing - none since admission - Continue ASA 81 mg daily and Plavix 75 mg daily - Atorvastatin 80 mg daily, Coreg 6.25 mg BID, and Lisinopril 5 mg daily - Digoxin 0.125 mg daily - Imdur and Diltiazem on hold - likely will be held on D/C as adjustments made with BB and ACEI to optimize cardiac function - Plan to hold Xarelto x 48 hours from procedure and will implement tomorrow - Pending BP improve likely add Lasix 20 mg daily as maintenance dose - Cardiology following - ICD/dual chamber pacer placement yesterday RLE Pain with Chronic Occlusions: IMPROVING - Treatment as above with Plavix/ASA and pain management - appears to be improving with appropriate anticoagulation COPD without Exacerbation: - Ventolin 2 puffs Q6H PRN Melena?: Hemoglobin has remained stable - can continue to monitor Code Status: FULL RESUSCITATION Disposition: - Pending improvement in BP and likely incorporation of low dose of maintenance diuretic - possible D/C tomorrow Continued [facility] stay due to: multiple IV medications needed Discharge planning: home (Michaela Duong, PA-C) Attending Attestation: Pt seen/examined, chart reviewed, care plan d/w CHEIKH Duong. I agree w/ the carranza components of her documentation. Pt's main complaint is that of chronic GROSSMAN but worsening over last 6 months. He does have formal dx of COPD as well and smoked heavily up until several months ago. Denies chest pain or other complaints today. VSS afebrile gen - nad neck - no JVD heart - RRR, s1, s2 lungs - CTA b/l abd - soft ext - no edema A/P: 1. NSTEMI in setting of known CAD 2. paroxysmal v-tach, s/p ICD firing, s/p explantation of old ICD, and implantation of dual-chamber device, POD #1 3. chronic GROSSMAN - likely combination of COPD, CAD, and severe systolic CHF 4. severe systolic CHF - compensated 5. PAD - no symptoms at this time 6. noncompliance; he plans to return to [facility] in the next 2 weeks; will need to arrange f/u for him 7. h/o DVT/PE - resume xarelto in AM anticipate d/c tomorrow Luann ESTEVEZ MD (Juan A Estevez MD)
[2017-05-28] MEDS: DIGOXIN 0.125 MG TAB PO SCH (16:43)
[2017-05-28] MEDS ORDERED: TIOTROPIUM BROMIDE 5 PUFF/90 MCG INH INH ONE (17:00)
[2017-05-28] MEDS ORDERED: NURSING VERBAL MED ORDER ONE (17:00)
[2017-05-28] MEDS: IPRATROPIUM BROMIDE/ALBUTEROL respimat INH INH SCH ×2 (19:34→21:18)
[2017-05-28] MEDS: FLUTICASONE/SALMETEROL 250/50 (ADVAIR) 14 PUFF/1 INHALER INH SCH (21:19)
[2017-05-28] MEDS: ATORVASTATIN 40 MG TAB PO SCH (21:20)
[2017-05-28] MEDS: MIRTAZAPINE SOLTAB 15 MG PO SCH (21:20)
[2017-05-28] MEDS: NORTRIPTYLINE HCL 25 MG CAP PO SCH (21:21)
[2017-05-29] VITALS (11 sets, daily range): BP systolic 88–126; BP diastolic 57–93; PULSE 74–118; TEMP 36.3–37; O2SAT 92–99
[2017-05-29] MEDS: OXYCODONE/ACETAMINOPHEN 10/325MG TAB PO PRN ×3 (00:34→17:15)
[2017-05-29] MEDS: KETOROLAC TROMETHAMINE 10 MG TAB PO PRN (04:22)
[2017-05-29] MEDS: FLUTICASONE/SALMETEROL 250/50 (ADVAIR) 14 PUFF/1 INHALER INH SCH ×2 (08:56→21:25)
[2017-05-29] MEDS: TIOTROPIUM BROMIDE 5 PUFF/90 MCG INH INH SCH (08:57)
[2017-05-29] MEDS: IPRATROPIUM BROMIDE/ALBUTEROL respimat INH INH SCH ×4 (08:57→21:25)
[2017-05-29] MEDS: CLOPIDOGREL BISULFATE 75 MG TAB PO SCH (08:58)
[2017-05-29] MEDS: RANITIDINE HCL 150 MG TAB PO SCH ×2 (08:58→21:29)
[2017-05-29] MEDS: ASPIRIN 81 MG ECTAB PO SCH (08:58)
[2017-05-29] MEDS: POLYETHYLENE (MIRALAX) 17 GM PACK PO SCH ×2 (08:58→21:00)
[2017-05-29] MEDS: BusPIRone 15 MG TAB PO SCH ×3 (08:58→21:28)
[2017-05-29] MEDS: CARVEDILOL 6.25 MG TAB PO SCH (08:59)
[2017-05-29] MEDS: LISINOPRIL 5 MG TAB PO SCH (09:00)
[2017-05-29 09:05] LABS: HEMATOCRIT 33.5 % (42-52); MEAN CELL VOLUME 86.3 fL (80-100); MEAN CORPUSCULAR HEMOGLOBIN 25.8 pg (25-34); MEAN CORPUSCULAR HGB CONC 29.9 g/dl (32-36); MEAN PLATELET VOLUME 9.5 fL (7.4-10.4); PLATELET COUNT 250 K/uL (130-400); RED CELL DISTRIBUTION WIDTH CV 17.3 % (11.5-14.5); WHITE BLOOD COUNT 5.62 K/uL (4.8-10.8)
[2017-05-29 09:42] LABS: CALCIUM 8.1 mg/dl (8.5-10.1); CREATININE 1.01 mg/dl (0.60-1.40); POTASSIUM 4.4 mmol/L (3.5-5.1)
[2017-05-29] MEDS ORDERED: RIVAROXABAN 10 MG TAB PO SCH ×2 (15:59→21:00)
--- NOTE | 2017-05-29 16:14 | Hospitalist Progress Note ---
Hospitalist Progress Note Date of Service May 29, 2017. (Michaela Duong, PABenjyC) Subjective Pt evaluation today including: conversation w/ patient, physical exam, chart review, lab review, review of studies, review of inpatient medication list Patient seen and evaluated. No acute events overnight. Reporting poor sleep and fatigue as he was moved to a different room in the middle of the night. Reporting that he his more SOB and thought he was going to pass out when ambulating to the bathroom this AM. Patient without SOB at rest. Is laying flat in bed without discomfort. BPs have been running lower since his pacer procedure. Did discover patient is homeless and does not have a place to return on D/C. Resources have been provided and phone calls to nearby assistance. Constitutional: + fatigue, No fever, No chills Respiratory: + dyspnea on exertion, No dyspnea at rest Cardiovascular: No chest pain, No palpitations Abdomen: No pain, No nausea, No vomiting, No diarrhea, No constipation Musculoskeletal: No swelling, No calf pain Male : No dysuria Neurologic: + problem reported ("feelings of passing out") Skin: No rash (Michaela Duong, CHEIKH-C) Medications Current Inpatient Medications Medications (Trade) Dose Ordered Sig/Mariama Route Start Time Stop Time Status Last Admin Dose Admin Albuterol (Ventolin Hfa Inhaler) 2 puffs Q6H PRN INH 05/22/17 16:00 06/21/17 15:59 Aspirin (Ecotrin Tab) 81 mg QAM PO 05/23/17 09:00 06/22/17 08:59 05/29/17 08:58 81 MG Atorvastatin Calcium (Lipitor Tab) 80 mg HS PO 05/22/17 21:00 06/21/17 20:59 05/28/17 21:20 80 MG Buspirone HCl (BusPAR TAB) 15 mg TID PO 05/22/17 21:00 06/21/17 20:59 05/29/17 13:44 15 MG Clopidogrel Bisulfate (plAVix TAB) 75 mg QAM PO 05/23/17 09:00 06/22/17 08:59 05/29/17 08:58 75 MG Digoxin (Lanoxin Tab) 0.125 mg DAILY@1600 PO 05/23/17 16:00 06/22/17 15:59 05/28/17 16:43 0.125 MG Nortriptyline HCl (Pamelor Cap) 25 mg HS PO 05/22/17 21:00 06/21/17 20:59 05/28/17 21:21 25 MG Mirtazapine (Remeron Solutab) 60 mg HS PO 05/22/17 21:00 06/21/17 20:59 05/28/17 21:20 60 MG Acetaminophen (Tylenol Tab) 650 mg Q4H PRN PO 05/22/17 16:00 06/21/17 15:59 Al Hydrox/Mg Hydrox/Simethicone (Maalox Max Susp) 15 ml Q4H PRN PO 05/22/17 16:00 06/21/17 15:59 Magnesium Hydroxide (Milk Of Magnesia Susp) 30 ml Q12H PRN PO 05/22/17 16:00 06/21/17 15:59 05/26/17 15:31 30 ML Ondansetron HCl (Zofran Inj) 4 mg Q6H PRN IV 05/22/17 16:00 06/21/17 15:59 Nitroglycerin (Nitrostat Tab) 0.4 mg UD PRN SL 05/22/17 16:15 06/21/17 16:14 05/24/17 08:05 0.4 MG Oxycodone/ Acetaminophen (Percocet 10-325MG Tab) 1 tab Q6H PRN PO 05/24/17 17:15 06/05/17 15:59 05/29/17 11:13 1 TAB Ranitidine HCl (zANTac TAB) 150 mg BID PO 05/25/17 21:00 06/24/17 20:59 05/29/17 08:58 150 MG Ketorolac Tromethamine (Toradol Tab) 10 mg Q6H PRN PO 05/27/17 16:45 06/01/17 16:44 05/29/17 04:22 10 MG Acetaminophen 100 ml @ 400 mls/hr Q8H PRN IV 05/27/17 21:15 06/26/17 21:14 05/27/17 21:44 400 MLS/HR Polyethylene (Miralax Powder Packet) 17 gm BID PO 05/28/17 09:30 06/27/17 09:29 05/29/17 08:58 17 GM Salmeterol Xinafoate/ Fluticasone (Advair Diskus 250/50 Inh) 1 puff BID INH 05/28/17 21:00 06/27/17 20:59 05/29/17 08:56 1 PUFF Tiotropium [place] (Spiriva Handihaler Inhaler) 1 puff QAM INH 05/29/17 09:00 06/28/17 08:59 05/29/17 08:57 1 PUFF Albuterol/ Ipratropium (Combivent Respimat Inh) 1 puffs QID INH 05/28/17 17:00 06/27/17 16:59 05/29/17 13:44 1 PUFFS Carvedilol (Coreg Tab) 3.125 mg BID PO 05/29/17 21:00 06/28/17 20:59 Rivaroxaban (Xarelto Tab) 20 mg QPM PO 05/29/17 21:00 06/28/17 20:59 (Michaela Duong, PABenjyC) Objective Vital Signs Date Time Temp Pulse Resp B/P (MAP) Pulse Ox O2 Delivery O2 Flow Rate FiO2 05/29/17 14:09 118 22 88/57 (67) 99 Room Air 05/29/17 14:08 36.5 90 18 99/68 (78) 95 Room Air 05/29/17 12:01 36.3 95 18 126/93 (104) 98 Room Air 05/29/17 12:00 Room Air 05/29/17 08:00 Room Air 05/29/17 07:41 36.9 74 18 92/64 (73) 94 Room Air 05/29/17 04:00 Room Air 05/29/17 04:00 36.7 89 18 106/69 (81) 92 Room Air 05/29/17 03:32 37.0 82 18 111/76 (88) 94 05/29/17 03:21 37.0 95 18 94 2.0 05/29/17 00:53 37.0 95 18 110/75 (87) 94 05/29/17 00:00 97 Room Air 05/28/17 20:00 Room Air 05/28/17 19:41 36.8 94 20 103/70 (81) 92 Room Air 05/28/17 16:43 78 05/28/17 16:00 Room Air (Michaela Duong PA-C) Physical Exam General Appearance: WD/WN, no apparent distress Eyes: sclerae normal ENT: hearing grossly normal Neck: supple, no JVD, trachea midline Respiratory/Chest: lungs clear, normal breath sounds, no respiratory distress, no accessory muscle use Cardiovascular: regular rate, rhythm, no gallop, no murmur Abdomen: normal bowel sounds, non tender, soft Extremities: no pedal edema, no calf tenderness Neurologic/Psychiatric: alert, oriented x 3 Skin: normal color, warm/dry (Michaela Duong PA-C) Laboratory Results Last 24 Hours Test 05/29/17 07:37 05/29/17 08:41 05/29/17 11:38 Bedside Glucose 108 mg/dl 123 mg/dl White Blood Count 5.62 K/uL Red Blood Count 3.88 M/uL Hemoglobin 10.0 g/dL Hematocrit 33.5 % Mean Corpuscular Volume 86.3 fL Mean Corpuscular Hemoglobin 25.8 pg Mean Corpuscular Hemoglobin Concent 29.9 g/dl RDW Standard Deviation 55.0 fL RDW Coefficient of Variation 17.3 % Platelet Count 250 K/uL Mean Platelet Volume 9.5 fL Sodium Level 139 mmol/L Potassium Level 4.4 mmol/L Chloride Level 107 mmol/L Carbon Dioxide Level 27 mmol/L Anion Gap 5.0 mmol/L Blood Urea Nitrogen 21 mg/dl Creatinine 1.01 mg/dl Est Creatinine Clear Calc Drug Dose 104.8 ml/min Estimated GFR () 94.6 Estimated GFR (Non- 81.6 BUN/Creatinine Ratio 20.3 Random Glucose 120 mg/dl Calcium Level 8.1 mg/dl (Michaela Duong PA-C) Assessment and Plan Mr. Morgan is a 56 y/o male with PMHx of Paroxysmal Atrial Fibrillation, Mixed Diastolic/Systolic CHF, S/P Pacer/ICD, H/O DVT/PE, HTN, HLD, DELICIA, and COPD who presents to the ED c/o L-sided pain and LOC. NSTEMI with CAD and Mixed Diastolic/Systolic CHF S/P ICD and Paroxysmal Atrial Fibrillation: STABLE - Cardiac cath on 05/23 - reveals occluded proximal RCA where stent was placed approx. 5 weeks ago - patient reporting non-compliance with Plavix - Echo reveals worsening of LV dysfunction; is having recurrent ventricular arrhythmias and ICD firing - none since admission - Continue ASA 81 mg daily and Plavix 75 mg daily; Atorvastatin 80 mg daily - Hold Lisinopril and reduce Coreg to 3.125 BID with hold parameters only if systolic <95 - Digoxin 0.125 mg daily - Imdur and Diltiazem on hold - likely will be held on D/C as adjustments made with BB and ACEI to optimize cardiac function - Xarelto 20 mg daily - Cardiology following - ICD/dual chamber pacer placement 05/27 - outpatient follow-up established Dyspnea on Exertion: - Reporting significant GROSSMAN today which may be multifactorial and will obtain F/ U XR; he has remained on RA, no evidence of hypoxia, no respiratory distress, intermittently sinus tachy - await CXR and monitor - could consider further testing due to risk of possible PE given AC held due to procedure RLE Pain with Chronic Occlusions: IMPROVING - Treatment as above with Plavix/ASA and pain management - pain is better controlled with appropriate anticoagulation COPD without Exacerbation: - Advair BID, Combivent QID, Spiriva daily, and Ventolin 2 puffs Q6H PRN Code Status: FULL RESUSCITATION Disposition: - Discovered patient is homeless and resources provided for housing - will continue to follow to ensure establishment of housing -- Patient was previously in detention approx. 1 year ago; reports daughter cannot take him in; his mother's house in [place] was willed to his sister and cannot live there - Will obtain PT/OT evaluations to see if he would benefit from any inpatient rehab facility Continued [facility] stay due to: other (Homeless) Discharge planning: uncertain (Michaela Duong PA-C) Attending Attestation: Pt seen/examined, chart reviewed, care plan d/w CHEIKH Duong. I agree w/ the carranza components of her documentation. Pt continues with GROSSMAN but no sob at rest. No rest chest pain or exertional chest pain. Also with ongoing dizziness with standing and walking. Admits he was jailed x 1 year for "DUI" and got out in April. Upon getting out of detention he was essentially homeless but ultimately went to [place] to be with his mother who . He reports he CANNOT stay with his daughter in [place], CHEIKH upon d/c from [facility]. VSS but tachy at times (if BB is held) and hypotensive at times afebrile gen - nad neck - no JVD heart - RRR, s1, s2 lungs - CTA b/l but decreased BS left base abd - soft ext - no edema skin - ICD site, left upper chest, without significant hematoma A/P: 1. NSTEMI in setting of known CAD 2. paroxysmal v-tach, s/p ICD firing, s/p explantation of old ICD, and implantation of dual-chamber device, POD #2 3. chronic GROSSMAN - likely combination of COPD, CAD, and severe systolic CHF 4. severe systolic CHF - compensated clinically, but agree with CXR to r/o pulm edema or other process 5. PAD - no symptoms at this time 6. dizziness - check orthostatics; his BP does run low and dizziness may be from such 7. h/o DVT/PE - resume xarelto today we have been limited with his low BP and his dizziness for medication titration his BB and RALPH have been intermittently held due to hold parameters and his recurrent hypotension along w/ dizziness will temporarily hold RALPH temporarily lower coreg to 3.125mg BID with hopes of uptitrating if he can tolerate such Social work is aware of his essentially homelessness state and need for housing appreciate Dr. Curtis's assistance Luann ESTEVEZ MD (Juan A Estevez MD)
--- NOTE | 2017-05-29 16:27 | DIAGNOSTIC IMAGING REPORT ---
CHEST ONE VIEW PORTABLE CLINICAL HISTORY: Dyspnea on exertion. COMPARISON STUDY: Chest radiograph May 28, [address] May 22, 2017. FINDINGS: A left subclavian pacer/AICD is in place. There is no pneumothorax. Old bilateral rib fractures are noted. There is no evidence for pulmonary edema. Moderate elevation of the left hemidiaphragm is similar to chest CT of May 22, 2017. Associated left basilar opacity favors atelectasis. IMPRESSION: 1. Moderate elevation of the left hemidiaphragm with left basilar opacity which favors atelectasis. 2. No evidence of pulmonary edema. 3. No pneumothorax. 4. Minimal right lower lung opacity. Electronically signed by: Alan Marie M.D. 05/29/2017 4:25 PM Dictated Date/Time: 05/29/2017 4:21 PM
--- NOTE | 2017-05-29 16:49 | Cardiology Follow-Up ---
Subjective Date of Service: May 29, 2017. Pt evaluation today including: conversation w/ patient, physical exam, lab review, review of studies, review of inpatient medication list History of Present Illness He is still complaining of incisional discomfort from his surgery 2 days ago, he is also having significant shortness of breath with activity. He does not have orthopnea and he does not have exertional chest discomfort to suggest angina. Social History Smoking Status: Former Smoker History of Alcohol Use: No Review of Systems Respiratory: + dyspnea on exertion, No cough, No dyspnea at rest Cardiac: No orthopnea, No palpitations Incisional discomfort still present Medications Cardiovascular: Item Value Date Time Carvedilol 3.125 mg 05/29/17 2100 (Coreg Tab) BID/PO Rivaroxaban 20 mg 05/29/17 2100 (Xarelto Tab) QPM/PO Digoxin 0.125 mg 05/23/17 1600 (Lanoxin Tab) DAILY@1600/PO 05/28/17 1643 Aspirin 81 mg 05/23/17 0900 (Ecotrin Tab) QAM/PO 05/29/17 0858 Clopidogrel 75 mg 05/23/17 0900 Bisulfate QAM/PO 05/29/17 0858 (plAVix TAB) Atorvastatin 80 mg 05/22/17 2100 Calcium HS/PO 05/28/17 2120 (Lipitor Tab) Objective Vital Signs Past 12 Hours Date Time Temp Pulse Resp B/P (MAP) Pulse Ox O2 Delivery O2 Flow Rate FiO2 05/29/17 14:09 118 22 88/57 (67) 99 Room Air 05/29/17 14:08 36.5 90 18 99/68 (78) 95 Room Air 05/29/17 12:01 36.3 95 18 126/93 (104) 98 Room Air 05/29/17 12:00 Room Air 05/29/17 08:00 Room Air 05/29/17 07:41 36.9 74 18 92/64 (73) 94 Room Air Last Recorded Weight-Kilograms: 105.700 Intake & Output 8-Hour Column 05/29/17 05/30/17 05/30/17 16:00 00:00 08:00 Intake Total 480 ml Balance 480 ml 24-Hour Column 05/30/17 08:00 Intake Total 480 ml Balance 480 ml Physical Exam Constitutional: Level of Distress: NAD Lungs: Auscultation: breath sounds normal Cardiovascular: Heart Auscultation: RRR, no murmurs, no rubs Extremities: no edema Incision is clean and dry. There is ecchymosis around the site, but no hematoma. Dressing changed. Data Laboratory Results: Last 24 Hours Test 05/29/17 07:37 05/29/17 08:41 05/29/17 11:38 Bedside Glucose 108 mg/dl 123 mg/dl White Blood Count 5.62 K/uL Red Blood Count 3.88 M/uL Hemoglobin 10.0 g/dL Hematocrit 33.5 % Mean Corpuscular Volume 86.3 fL Mean Corpuscular Hemoglobin 25.8 pg Mean Corpuscular Hemoglobin Concent 29.9 g/dl RDW Standard Deviation 55.0 fL RDW Coefficient of Variation 17.3 % Platelet Count 250 K/uL Mean Platelet Volume 9.5 fL Sodium Level 139 mmol/L Potassium Level 4.4 mmol/L Chloride Level 107 mmol/L Carbon Dioxide Level 27 mmol/L Anion Gap 5.0 mmol/L Blood Urea Nitrogen 21 mg/dl Creatinine 1.01 mg/dl Est Creatinine Clear Calc Drug Dose 104.8 ml/min Estimated GFR () 94.6 Estimated GFR (Non- 81.6 BUN/Creatinine Ratio 20.3 Random Glucose 120 mg/dl Calcium Level 8.1 mg/dl Telemetry reviewed: Sinus rhythm, appropriate pacemaker inhibition Assessment and Plan #1. Cardiomyopathy: He has continued symptoms probably related to his severe left ventricular dysfunction, with dyspnea on exertion. Hopefully he can tolerate higher doses of medications but his beta sravan was reduced and he is not on lisinopril. This is not a good strategy for the long run. #2. ICD: He continues to have incisional discomfort, but the site seems to be without swelling. #3. Shortness of breath with exertion: I don't believe he is in heart failure, I believe his shortness of breath is related to his severe left ventricular dysfunction and his recent myocardial infarction. Thank you for allowing me to participate in his care.
[2017-05-29] MEDS: DIGOXIN 0.125 MG TAB PO SCH (17:17)
[2017-05-29] MEDS: CARVEDILOL 3.125 MG TAB PO SCH (21:27)
[2017-05-29] MEDS: ATORVASTATIN 40 MG TAB PO SCH (21:28)
[2017-05-29] MEDS: NORTRIPTYLINE HCL 25 MG CAP PO SCH (21:28)
[2017-05-29] MEDS: MIRTAZAPINE SOLTAB 15 MG PO SCH (21:28)
[2017-05-30] VITALS (12 sets, daily range): BP systolic 71–118; BP diastolic 55–83; PULSE 89–125; TEMP 36.6–36.9; O2SAT 91–94
[2017-05-30] MEDS: OXYCODONE/ACETAMINOPHEN 10/325MG TAB PO PRN ×4 (01:24→20:30)
[2017-05-30] MEDS: FLUTICASONE/SALMETEROL 250/50 (ADVAIR) 14 PUFF/1 INHALER INH SCH ×2 (08:10→20:14)
[2017-05-30] MEDS: IPRATROPIUM BROMIDE/ALBUTEROL respimat INH INH SCH ×4 (08:11→20:13)
[2017-05-30] MEDS: RANITIDINE HCL 150 MG TAB PO SCH ×2 (08:12→20:14)
[2017-05-30] MEDS: BusPIRone 15 MG TAB PO SCH ×3 (08:12→20:16)
[2017-05-30] MEDS: ASPIRIN 81 MG ECTAB PO SCH (08:12)
[2017-05-30] MEDS: CARVEDILOL 3.125 MG TAB PO SCH ×2 (08:13→20:24)
[2017-05-30] MEDS: CLOPIDOGREL BISULFATE 75 MG TAB PO SCH (08:13)
[2017-05-30] MEDS: POLYETHYLENE (MIRALAX) 17 GM PACK PO SCH ×2 (08:16→20:24)
[2017-05-30] MEDS ORDERED: LISINOPRIL 2.5 MG TAB PO SCH (09:00)
[2017-05-30] MEDS: TIOTROPIUM BROMIDE 5 PUFF/90 MCG INH INH SCH (09:10)
[2017-05-30] MEDS: KETOROLAC TROMETHAMINE 10 MG TAB PO PRN (11:08)
--- NOTE | 2017-05-30 14:16 | Hospitalist Progress Note ---
Hospitalist Progress Note Date of Service May 30, 2017. (Michaela Duong, PA-C) Subjective Pt evaluation today including: conversation w/ patient, physical exam, chart review, lab review, review of studies, review of inpatient medication list Patient seen and evaluated. Telemetry largely NSR in 90s with occ. sinus tach. Orthostatics obtained this morning of 116/77 supine, 95/74 sitting, and 71/55 standing. Patient reporting that he felt like he was going to pass out with this. Orthostatic issues have been ongoing for him extending back for years and reports he was on other BP meds that had to be D/Cd due to this including his Lasix. Unfortunately this is limiting maximum benefit from BB and ACEI inclusion in his care. Knowing now that he is homeless, Xarelto is not affordable and will transition to Coumadin. Valente from [facility] was in to see patient. He reports he is feeling better today and admits that a lot of his symptoms yesterday was more due to discharge as he does not have a place to go and is feeling better knowing there is resources out there for him. Still does not feel good when standing up though. Constitutional: + problem reported (lightheaded with standing), No fever, No chills Respiratory: + dyspnea on exertion, No dyspnea at rest Cardiovascular: No chest pain, No palpitations Abdomen: No pain, No nausea, No vomiting, No diarrhea, No constipation Heme: No abnormal bleeding/bruising (Michaela Duong, PA-C) Medications Current Inpatient Medications Medications (Trade) Dose Ordered Sig/Mariama Route Start Time Stop Time Status Last Admin Dose Admin Albuterol (Ventolin Hfa Inhaler) 2 puffs Q6H PRN INH 05/22/17 16:00 06/21/17 15:59 Aspirin (Ecotrin Tab) 81 mg QAM PO 05/23/17 09:00 06/22/17 08:59 05/30/17 08:12 81 MG Atorvastatin Calcium (Lipitor Tab) 80 mg HS PO 05/22/17 21:00 06/21/17 20:59 05/29/17 21:28 80 MG Buspirone HCl (BusPAR TAB) 15 mg TID PO 05/22/17 21:00 06/21/17 20:59 05/30/17 08:12 15 MG Clopidogrel Bisulfate (plAVix TAB) 75 mg QAM PO 05/23/17 09:00 06/22/17 08:59 05/30/17 08:13 75 MG Digoxin (Lanoxin Tab) 0.125 mg DAILY@1600 PO 05/23/17 16:00 06/22/17 15:59 05/29/17 17:17 0.125 MG Nortriptyline HCl (Pamelor Cap) 25 mg HS PO 05/22/17 21:00 06/21/17 20:59 05/29/17 21:28 25 MG Mirtazapine (Remeron Solutab) 60 mg HS PO 05/22/17 21:00 06/21/17 20:59 05/29/17 21:28 60 MG Acetaminophen (Tylenol Tab) 650 mg Q4H PRN PO 05/22/17 16:00 06/21/17 15:59 Al Hydrox/Mg Hydrox/Simethicone (Maalox Max Susp) 15 ml Q4H PRN PO 05/22/17 16:00 06/21/17 15:59 Magnesium Hydroxide (Milk Of Magnesia Susp) 30 ml Q12H PRN PO 05/22/17 16:00 06/21/17 15:59 05/26/17 15:31 30 ML Ondansetron HCl (Zofran Inj) 4 mg Q6H PRN IV 05/22/17 16:00 06/21/17 15:59 Nitroglycerin (Nitrostat Tab) 0.4 mg UD PRN SL 05/22/17 16:15 06/21/17 16:14 05/24/17 08:05 0.4 MG Oxycodone/ Acetaminophen (Percocet 10-325MG Tab) 1 tab Q6H PRN PO 05/24/17 17:15 06/05/17 15:59 05/30/17 08:11 1 TAB Ranitidine HCl (zANTac TAB) 150 mg BID PO 05/25/17 21:00 06/24/17 20:59 05/30/17 08:12 150 MG Ketorolac Tromethamine (Toradol Tab) 10 mg Q6H PRN PO 05/27/17 16:45 06/01/17 16:44 05/30/17 11:08 10 MG Acetaminophen 100 ml @ 400 mls/hr Q8H PRN IV 05/27/17 21:15 06/26/17 21:14 05/27/17 21:44 400 MLS/HR Polyethylene (Miralax Powder Packet) 17 gm BID PO 05/28/17 09:30 06/27/17 09:29 05/30/17 08:16 17 GM Salmeterol Xinafoate/ Fluticasone (Advair Diskus 250/50 Inh) 1 puff BID INH 05/28/17 21:00 06/27/17 20:59 05/30/17 08:10 1 PUFF Tiotropium [place] (Spiriva Handihaler Inhaler) 1 puff QAM INH 05/29/17 09:00 06/28/17 08:59 05/30/17 09:10 1 PUFF Albuterol/ Ipratropium (Combivent Respimat Inh) 1 puffs QID INH 05/28/17 17:00 06/27/17 16:59 05/30/17 08:11 1 PUFFS Carvedilol (Coreg Tab) 3.125 mg BID PO 05/29/17 21:00 06/28/17 20:59 05/30/17 08:13 3.125 MG Warfarin Sodium (Coumadin Tab) 10 mg DAILY@16 ONCE PO 05/30/17 16:00 05/30/17 16:01 Warfarin Sodium (Coumadin Tab) 5 mg DAILY@16 PO 05/31/17 16:00 06/30/17 15:59 (Michaela Duong, DOROTHY) Objective Vital Signs Date Time Temp Pulse Resp B/P (MAP) Pulse Ox O2 Delivery O2 Flow Rate FiO2 05/30/17 12:00 Room Air 05/30/17 11:37 36.9 94 18 106/78 (87) 94 Room Air 05/30/17 09:06 116/77 (90) 95/74 (81) 71/55 (60) 05/30/17 08:00 Room Air 05/30/17 07:40 36.7 92 18 114/82 (93) 94 Room Air 05/30/17 04:19 36.6 89 16 104/71 (82) 92 Room Air 05/30/17 04:00 Room Air 05/30/17 00:23 36.8 99 20 96/70 (79) 91 Room Air 05/30/17 00:00 Room Air 05/29/17 21:27 95 107/72 (84) 05/29/17 20:00 Room Air 05/29/17 19:16 36.8 104 20 105/75 (85) 94 Room Air 05/29/17 17:17 93 05/29/17 16:00 Room Air 05/29/17 14:09 118 22 88/57 (67) 99 Room Air 05/29/17 14:08 36.5 90 18 99/68 (78) 95 Room Air (Michaela Duong PA-C) Physical Exam General Appearance: WD/WN, no apparent distress Eyes: sclerae normal ENT: hearing grossly normal Neck: supple, no JVD, trachea midline Respiratory/Chest: lungs clear, normal breath sounds, no respiratory distress, no accessory muscle use Cardiovascular: regular rate, rhythm, no gallop, no murmur Abdomen: normal bowel sounds, non tender, soft Extremities: no pedal edema Neurologic/Psychiatric: alert, oriented x 3 Skin: normal color, warm/dry (Michaela Duong, HUGOC) Laboratory Results Last 24 Hours Test 05/29/17 16:20 Bedside Glucose 125 mg/dl (Michaela Duong PA-C) Assessment and Plan Mr. Morgan is a 56 y/o male with PMHx of Paroxysmal Atrial Fibrillation, Mixed Diastolic/Systolic CHF, S/P Pacer/ICD, H/O DVT/PE, HTN, HLD, DELICIA, and COPD who presents to the ED c/o L-sided pain and LOC. NSTEMI with CAD and Mixed Diastolic/Systolic CHF S/P ICD and Paroxysmal Atrial Fibrillation: STABLE - Cardiac cath on 05/23 - reveals occluded proximal RCA where stent was placed approx. 5 weeks ago - patient reporting non-compliance with Plavix - Echo reveals worsening of LV dysfunction; is having recurrent ventricular arrhythmias and ICD firing - none since admission - Continue ASA 81 mg daily and Plavix 75 mg daily; Atorvastatin 80 mg daily - Hold Lisinopril and continue reduce Coreg to 3.125 BID with hold parameters only if systolic <95 with goal to hopefully titrate up however orthostasis causing limitations - Digoxin 0.125 mg daily - Imdur and Diltiazem on hold with plans to D/C - Due to lack of affordability will need to stop Xarelto and convert to Coumadin - no bridge necessary - Cardiology following - ICD/dual chamber pacer placement 05/27 - outpatient follow-up established Orthostasis: - This has been a chronic issue for him...anti-hypertensives needed to optimize his cardiomyopathy low BPs have been limiting -- Possible Midodrine in addition to the antihypertensives? Dyspnea on Exertion: Multifactorial - Likely due to underlying COPD, Cardiomyopathy, and possible physiologic with orthostasis RLE Pain with Chronic Occlusions: STABLE - Treatment as above with Plavix/ASA and pain management - pain is better controlled with appropriate anticoagulation COPD without Exacerbation: - Advair BID, Combivent QID, Spiriva daily, and Ventolin 2 puffs Q6H PRN Code Status: FULL RESUSCITATION Disposition: - PT/OT evaluations - Resources and working on placement as patient is homeless Continued [facility] stay due to: multiple IV medications needed Discharge planning: uncertain (Michaela Duong, PABenoit) Attending Attestation: Pt seen/examined, chart reviewed, care plan d/w CHEIKH Duong. I agree w/ the carranza components of her documentation. main complaint today is that of severe dizziness with standing and walking. has been a problem for 2-3 months. he thinks he was placed on a medication in [place] to help with this ( after discussing the issue w/ him perhaps charisse?). he is considering [facility] for a place to live. VSS at rest but Orthostatics are POSITIVE (mod-severe) afebrile gen - nad neck - no JVD heart - RRR, s1, s2 lungs - CTA b/l but decreased BS left base once again abd - soft ext - no edema A/P: 1. NSTEMI in setting of known CAD 2. paroxysmal v-tach, s/p ICD firing, s/p explantation of old ICD, and implantation of dual-chamber device, POD #3 3. chronic GROSSMAN - likely combination of COPD, CAD, and severe systolic CHF 4. severe systolic CHF - compensated clinically 5. PAD - no symptoms at this time 6. severe orthostasis - because of this issue we have had to stop his RALPH and reduce his BB; we discussed the issue with Dr. Curtis. Will try a very small amount of fluid (500cc over 10 hours). If still orthostatic then trial of midodrine 7. h/o DVT/PE - he does not have Medicare Part D; thus, stop the xarelto and start coumadin; give 10mg today and then 5mg starting tomorrow with daily INRs Social work is aware of his essentially homelessness state and need for housing ; possibly [facility]? appreciate Dr. Curtis's assistance Luann ESTEVEZ MD (Juan A Estevez MD)
[2017-05-30] MEDS ORDERED: SODIUM CHLORIDE 0.9% 500ML 500 ML IV ONE (15:30)
[2017-05-30] MEDS ORDERED: WARFARIN SOD 10 MG TAB PO ONE (16:00)
[2017-05-30] MEDS: DIGOXIN 0.125 MG TAB PO SCH (16:10)
[2017-05-30] MEDS: MIRTAZAPINE SOLTAB 15 MG PO SCH (20:14)
[2017-05-30] MEDS: NORTRIPTYLINE HCL 25 MG CAP PO SCH (20:16)
[2017-05-30] MEDS: ATORVASTATIN 40 MG TAB PO SCH (20:16)
[2017-05-31] MEDS: OXYCODONE/ACETAMINOPHEN 10/325MG TAB PO PRN ×4 (05:13→23:25)
[2017-05-31 05:24] VITALS: BP_SYST 100; BP_SYST 108; BP_DIAS 69; BP_DIAS 72; PULSE 102; PULSE 112; PULSE 118; TEMP 36.3; O2SAT 95
[2017-05-31 07:45] VITALS: BP 107/77; PULSE 98; TEMP 36.8; O2SAT 93
[2017-05-31] MEDS: IPRATROPIUM BROMIDE/ALBUTEROL respimat INH INH SCH ×4 (08:00→19:52)
[2017-05-31] MEDS: CARVEDILOL 3.125 MG TAB PO SCH ×2 (08:01→19:59)
[2017-05-31] MEDS: TIOTROPIUM BROMIDE 5 PUFF/90 MCG INH INH SCH (08:01)
[2017-05-31] MEDS: ASPIRIN 81 MG ECTAB PO SCH (08:02)
[2017-05-31] MEDS: BusPIRone 15 MG TAB PO SCH ×3 (08:02→19:59)
[2017-05-31] MEDS: RANITIDINE HCL 150 MG TAB PO SCH ×2 (08:02→19:59)
[2017-05-31] MEDS: CLOPIDOGREL BISULFATE 75 MG TAB PO SCH (08:02)
[2017-05-31] MEDS: FLUTICASONE/SALMETEROL 250/50 (ADVAIR) 14 PUFF/1 INHALER INH SCH ×2 (08:02→19:52)
[2017-05-31] MEDS: POLYETHYLENE (MIRALAX) 17 GM PACK PO SCH ×2 (08:03→19:51)
[2017-05-31] MEDS: KETOROLAC TROMETHAMINE 10 MG TAB PO PRN ×2 (08:07→13:33)
[2017-05-31 09:23] LABS: INR 1.2 (0.9-1.1)
[2017-05-31 09:46] LABS: CALCIUM 8.5 mg/dl (8.5-10.1); CREATININE 0.92 mg/dl (0.60-1.40); POTASSIUM 4.4 mmol/L (3.5-5.1)
[2017-05-31 11:31] VITALS: BP 101/69; PULSE 108; TEMP 36.9; O2SAT 94
[2017-05-31 15:24] VITALS: BP 99/61; PULSE 103; TEMP 36.4; O2SAT 94
[2017-05-31] MEDS: MIDODRINE 2.5 MG TAB PO SCH (16:50)
[2017-05-31] MEDS: WARFARIN SOD 5 MG TAB PO SCH (16:50)
[2017-05-31] MEDS: DIGOXIN 0.125 MG TAB PO SCH (16:50)
[2017-05-31 16:57] VITALS: BP_SYST 107; BP_SYST 114; BP_SYST 85; BP_DIAS 60; BP_DIAS 74; BP_DIAS 80; PULSE 104; PULSE 105; PULSE 112
[2017-05-31] MEDS: NORTRIPTYLINE HCL 25 MG CAP PO SCH (19:58)
[2017-05-31] MEDS: ATORVASTATIN 40 MG TAB PO SCH (19:59)
[2017-05-31] MEDS: MIRTAZAPINE SOLTAB 15 MG PO SCH (20:21)
[2017-05-31] MEDS: SERTRALINE HCL 50 MG TAB PO SCH (20:22)
[2017-05-31 23:47] VITALS: BP 115/80; PULSE 116; TEMP 36.4; O2SAT 92
--- NOTE | 2017-05-31 23:50 | Progress Note ---
Subjective Date of Service: May 31, 2017. Subjective Pt evaluation today including: conversation w/ patient, physical exam, chart review, lab review PO Intake: normal Voiding: no voiding problems, no incontinence despite IVF (500cc total) overnight his dizziness/orthostasis is unchanged he also c/o depression for a few months (since his mother ) as well as chronic anxiety he reports chronic insomnia as well; he attributes poor sleep to anxiety denies h/o bipolar disorder has tried prozac and paxil in the past -- no side effects but "they didn't work " has tried cymbalta and felt it made him worse has taken benzos in the past but does not wish to take them again [facility] him when he is medically stable Problem List Medical Problems: (1) Abdominal aortic aneurysm Status: Acute (2) Left leg cellulitis Status: Acute (3) Non-STEMI (non-ST elevated myocardial infarction) Status: Acute (4) Syncope Status: Acute Review of Systems Respiratory: + dyspnea on exertion, No cough, No sputum, No wheezing, No shortness of breath Cardiac: No chest pain, No orthopnea Abdomen: No pain Objective Vital Signs Date Time Temp Pulse Resp B/P (MAP) Pulse Ox O2 Delivery O2 Flow Rate FiO2 05/31/17 20:00 Room Air 05/31/17 16:57 104 107/74 (85) 105 114/80 (91) 112 85/60 (68) 05/31/17 16:50 103 05/31/17 16:00 Room Air 05/31/17 15:24 36.4 103 16 99/61 (74) 94 05/31/17 12:00 Room Air 05/31/17 11:31 36.9 108 16 101/69 (80) 94 05/31/17 08:30 Room Air 05/31/17 07:45 36.8 98 16 107/77 (87) 93 05/31/17 05:24 36.3 102 20 108/72 (84) 95 Room Air 112 100/69 (79) 118 05/31/17 04:00 Room Air 05/31/17 00:00 Room Air Physical Exam General Appearance: no apparent distress ENT: pharynx normal Neck: no JVD Respiratory/Chest: no respiratory distress, no accessory muscle use, + rales ( fine, bases) Cardiovascular: regular rate, rhythm, no gallop, no murmur Abdomen: normal bowel sounds, non tender, soft, no organomegaly Extremities: no pedal edema Neurologic/Psychiatric: alert, oriented x 3, + depressed affect Laboratory Results Last 24 Hours Test 05/31/17 08:07 Prothrombin Time 12.5 SECONDS Prothromb Time International Ratio 1.2 Sodium Level 137 mmol/L Potassium Level 4.4 mmol/L Chloride Level 107 mmol/L Carbon Dioxide Level 24 mmol/L Anion Gap 6.0 mmol/L Blood Urea Nitrogen 15 mg/dl Creatinine 0.92 mg/dl Est Creatinine Clear Calc Drug Dose 104.6 ml/min Estimated GFR () 105.9 Estimated GFR (Non- 91.4 BUN/Creatinine Ratio 16.9 Random Glucose 93 mg/dl Calcium Level 8.5 mg/dl Thyroid Stimulating Hormone (TSH) 1.830 uIu/ml Assessment and Plan 56yo male - 1. NSTEMI in setting of known CAD - cont asa, statin, BB, plavix. s/p heart cath by Dr. Parker earlier this admission. Severe 2-vessel CAD seen on cath - medical management recommended. 2. paroxysmal v-tach, s/p ICD firing, s/p explantation of old ICD, and implantation of dual-chamber device, POD #[address] Curtis. 3. chronic GROSSMAN - likely combination of COPD, CAD, and severe systolic CHF - ongoing; Rx of CHF has been challenging due to severe orthostasis 4. severe systolic CHF, EF 20-25% - compensated clinically although mild rales today on exam; follow carefully and if any worsening from symptom standpoint then gentle diuresis. 5. PAD - no symptoms at this time - asa, statin, plavix, etc. 6. severe orthostasis - because of this issue we have had to stop his RALPH and reduce his BB; we discussed the issue with Dr. Curtis. Despite 500cc of gentle hydration overnight his orthostatic BPs are no different and his orthostatic symptoms are unchanged. Will start midodrine 2.5mg TID. Cont qshift orthostatic bps. 7. h/o DVT/PE - he does not have Medicare Part D; thus, stopped the xarelto and started coumadin; cont 5mg daily with daily INR 8. depression/anxiety/insomnia - start zoloft 25mg HS; titrate to 50mg in about 1 week. May need increase in nortriptyline if sleep continues to be an issue. 9. social - social work is aware of his homelessness state and need for housing ; [facility] willing to take patient at discharge. 10. COPD - continue inhalers. 11. h/o a. fib - has been in NSR. Coumadin, BB. Continued [facility] stay due to: other (severe orthostasis; need for titration of CHF meds especially his beta sravan) Discharge planning: other ([facility])
[2017-06-01 04:56] VITALS: BP 120/86; PULSE 97; TEMP 36.7; O2SAT 93
[2017-06-01] MEDS: OXYCODONE/ACETAMINOPHEN 10/325MG TAB PO PRN ×3 (05:46→17:53)
[2017-06-01 06:46] LABS: HEMATOCRIT 33.1 % (42-52); HEMOGLOBIN 10.1 g/dL (14.0-18.0); MEAN CELL VOLUME 85.8 fL (80-100); MEAN CORPUSCULAR HEMOGLOBIN 26.2 pg (25-34); MEAN CORPUSCULAR HGB CONC 30.5 g/dl (32-36); MEAN PLATELET VOLUME 10.1 fL (7.4-10.4); PLATELET COUNT 217 K/uL (130-400); RED CELL DISTRIBUTION WIDTH CV 17.4 % (11.5-14.5); RED CELL DISTRIBUTION WIDTH SD 54.6 fL (36.4-46.3); WHITE BLOOD COUNT 5.39 K/uL (4.8-10.8)
[2017-06-01 06:56] LABS: INR 2.1 (0.9-1.1)
[2017-06-01 07:02] VITALS: BP 91/62; PULSE 94; TEMP 36.4; O2SAT 94
[2017-06-01] MEDS: TIOTROPIUM BROMIDE 5 PUFF/90 MCG INH INH SCH (08:00)
[2017-06-01] MEDS: IPRATROPIUM BROMIDE/ALBUTEROL respimat INH INH SCH ×4 (08:00→19:53)
[2017-06-01] MEDS: FLUTICASONE/SALMETEROL 250/50 (ADVAIR) 14 PUFF/1 INHALER INH SCH ×2 (08:00→19:53)
[2017-06-01] MEDS: ASPIRIN 81 MG ECTAB PO SCH (08:01)
[2017-06-01] MEDS: CLOPIDOGREL BISULFATE 75 MG TAB PO SCH (08:01)
[2017-06-01] MEDS: POLYETHYLENE (MIRALAX) 17 GM PACK PO SCH ×2 (08:01→19:53)
[2017-06-01] MEDS: MIDODRINE 2.5 MG TAB PO SCH ×3 (08:01→16:19)
[2017-06-01] MEDS: BusPIRone 15 MG TAB PO SCH ×3 (08:01→19:54)
[2017-06-01] MEDS: RANITIDINE HCL 150 MG TAB PO SCH ×2 (08:02→19:54)
[2017-06-01 08:55] VITALS: BP 108/63; PULSE 94
[2017-06-01] MEDS: CARVEDILOL 3.125 MG TAB PO SCH ×2 (09:01→19:53)
[2017-06-01] MEDS: KETOROLAC TROMETHAMINE 10 MG TAB PO PRN ×2 (09:02→15:14)
--- NOTE | 2017-06-01 09:21 | Progress Note ---
Subjective Date of Service: Jun 01, 2017. Subjective pt has no complaints understands he is waiting for placement,eating lunch during my visit Problem List Medical Problems: (1) Abdominal aortic aneurysm Status: Acute (2) Left leg cellulitis Status: Acute (3) Non-STEMI (non-ST elevated myocardial infarction) Status: Acute (4) Syncope Status: Acute Review of Systems Constitutional: + weakness, + fatigue, No fever, No chills Respiratory: No cough, No shortness of breath Cardiac: No chest pain, No edema Abdomen: No pain, No vomiting Male : No dysuria, No urinary frequency Objective Vital Signs Date Time Temp Pulse Resp B/P (MAP) Pulse Ox O2 Delivery O2 Flow Rate FiO2 06/01/17 07:02 36.4 94 18 91/62 (72) 94 Room Air 06/01/17 04:56 36.7 97 19 120/86 (97) 93 Room Air 06/01/17 04:00 Room Air 06/01/17 00:00 Room Air 05/31/17 23:47 36.4 116 19 115/80 (92) 92 Room Air 05/31/17 20:00 Room Air 05/31/17 16:57 104 107/74 (85) 105 114/80 (91) 112 85/60 (68) 05/31/17 16:50 103 05/31/17 16:00 Room Air 05/31/17 15:24 36.4 103 16 99/61 (74) 94 05/31/17 12:00 Room Air 05/31/17 11:31 36.9 108 16 101/69 (80) 94 Physical Exam General Appearance: WD/WN, no apparent distress Eyes: normal inspection, sclerae normal Respiratory/Chest: chest non-tender, lungs clear, normal breath sounds Cardiovascular: regular rate, rhythm, no murmur Abdomen: normal bowel sounds, non tender, soft Extremities: no pedal edema, no calf tenderness Neurologic/Psychiatric: alert, oriented x 3 Laboratory Results Last 24 Hours Test 06/01/17 06:23 White Blood Count 5.39 K/uL Red Blood Count 3.86 M/uL Hemoglobin 10.1 g/dL Hematocrit 33.1 % Mean Corpuscular Volume 85.8 fL Mean Corpuscular Hemoglobin 26.2 pg Mean Corpuscular Hemoglobin Concent 30.5 g/dl RDW Standard Deviation 54.6 fL RDW Coefficient of Variation 17.4 % Platelet Count 217 K/uL Mean Platelet Volume 10.1 fL Prothrombin Time 21.4 SECONDS Prothromb Time International Ratio 2.1 Assessment and Plan 56yo m with acute nstemi with medical management NSTEMI in setting of known CAD - cont asa, statin, BB, plavix. s/p heart cath by Dr. Parker earlier this admission. Severe 2-vessel CAD seen on cath - medical management recommended. h/o a. fib - has been in NSR. Coumadin, BB. paroxysmal v-tach, s/p ICD firing, s/p explantation of old ICD, and implantation of dual-chamber device, POD #[address] Curtis. severe systolic CHF, EF 20-25% - compensated Chronic Shortness of breath, - COPD, CAD, and severe systolic CHF PAD - maintain - asa, statin, plavix, etc. Persistent severe orthostasis - previously stopped his RALPH and reduced his BB; after discussion with Dr. Curtis. trial of midodrine 2.5mg TID. h/o DVT/PE - started coumadin; cont 5mg daily with daily INR as more favorable with insurance depression/anxiety/insomnia - started zoloft 25mg HS; titrate to 50mg in about 1 week. social - social work is aware of his homelessness state and need for housing; [facility] willing to take patient at discharge. COPD -clinically stable with continued inhalers. Continued [facility] stay due to: other (severe orthostasis; need for titration of CHF meds especially his beta sravan) Discharge planning: other ([facility])
[2017-06-01 11:31] VITALS: BP_SYST 107; BP_SYST 70; BP_SYST 88; BP_DIAS 47; BP_DIAS 57; BP_DIAS 73; PULSE 120; TEMP 36.4; O2SAT 95
[2017-06-01] MEDS: DIGOXIN 0.125 MG TAB PO SCH (16:19)
[2017-06-01] MEDS: WARFARIN SOD 5 MG TAB PO SCH (16:21)
[2017-06-01 19:18] VITALS: BP_SYST 103; BP_SYST 107; BP_SYST 84; BP_DIAS 59; BP_DIAS 72; BP_DIAS 77; PULSE 85; PULSE 97; TEMP 37; O2SAT 100
[2017-06-01] MEDS: MIRTAZAPINE SOLTAB 15 MG PO SCH (19:54)
[2017-06-01] MEDS: SERTRALINE HCL 50 MG TAB PO SCH (19:55)
[2017-06-01] MEDS: NORTRIPTYLINE HCL 25 MG CAP PO SCH (19:56)
[2017-06-01] MEDS: ATORVASTATIN 40 MG TAB PO SCH (19:56)
[2017-06-01 22:41] VITALS: BP 115/79; PULSE 91; TEMP 36.9; O2SAT 91
[2017-06-02] VITALS (7 sets, daily range): BP systolic 75–129; BP diastolic 53–84; PULSE 84–115; TEMP 36.5–36.8; O2SAT 91–97
[2017-06-02] MEDS: OXYCODONE/ACETAMINOPHEN 10/325MG TAB PO PRN ×4 (00:23→19:48)
[2017-06-02] MEDS: FLUTICASONE/SALMETEROL 250/50 (ADVAIR) 14 PUFF/1 INHALER INH SCH ×2 (07:20→20:58)
[2017-06-02] MEDS: MIDODRINE 2.5 MG TAB PO SCH ×3 (07:20→16:56)
[2017-06-02] MEDS: POLYETHYLENE (MIRALAX) 17 GM PACK PO SCH ×2 (07:20→20:57)
[2017-06-02] MEDS: IPRATROPIUM BROMIDE/ALBUTEROL respimat INH INH SCH ×4 (07:21→20:58)
[2017-06-02] MEDS: CARVEDILOL 3.125 MG TAB PO SCH ×2 (07:22→21:01)
[2017-06-02] MEDS: BusPIRone 15 MG TAB PO SCH ×3 (07:22→20:59)
[2017-06-02] MEDS: RANITIDINE HCL 150 MG TAB PO SCH ×2 (07:23→21:01)
[2017-06-02] MEDS: CLOPIDOGREL BISULFATE 75 MG TAB PO SCH (07:23)
[2017-06-02] MEDS: ASPIRIN 81 MG ECTAB PO SCH (07:23)
[2017-06-02] MEDS: TIOTROPIUM BROMIDE 5 PUFF/90 MCG INH INH SCH (07:24)
[2017-06-02 07:32] LABS: INR 3.6 (0.9-1.1)
[2017-06-02] MEDS ORDERED: MIDODRINE 2.5 MG TAB PO ONE (13:35)
--- NOTE | 2017-06-02 13:46 | Hospitalist Progress Note ---
Hospitalist Progress Note Date of Service Jun 02, 2017. (Michaela Duong PA-C) Subjective Pt evaluation today including: conversation w/ patient, physical exam, chart review, lab review, review of studies, review of inpatient medication list Patient seen and evaluated. No acute events overnight. Continues to be significantly symptomatic with his orthostasis. Will increase Midodrine even further. Resting BP improving. Reports that he got up to use the restroom and talk with his roommate and nearly passed out. Plan for D/C to [facility] hopefully in the next couple days but will try and improve BP and hopefully could allow for increased BB/ACEI given his severely reduced EF Constitutional: No fever, No chills Respiratory: No cough, No shortness of breath Cardiovascular: No chest pain Abdomen: No pain, No nausea, No vomiting, No diarrhea, No constipation Heme: No abnormal bleeding/bruising (Michaela Duong PA-C) Medications Current Inpatient Medications Medications (Trade) Dose Ordered Sig/Mariama Route Start Time Stop Time Status Last Admin Dose Admin Albuterol (Ventolin Hfa Inhaler) 2 puffs Q6H PRN INH 05/22/17 16:00 06/21/17 15:59 Aspirin (Ecotrin Tab) 81 mg QAM PO 05/23/17 09:00 06/22/17 08:59 06/02/17 07:23 81 MG Atorvastatin Calcium (Lipitor Tab) 80 mg HS PO 05/22/17 21:00 06/21/17 20:59 06/01/17 19:56 80 MG Buspirone HCl (BusPAR TAB) 15 mg TID PO 05/22/17 21:00 06/21/17 20:59 06/02/17 07:22 15 MG Clopidogrel Bisulfate (plAVix TAB) 75 mg QAM PO 05/23/17 09:00 06/22/17 08:59 06/02/17 07:23 75 MG Digoxin (Lanoxin Tab) 0.125 mg DAILY@1600 PO 05/23/17 16:00 06/22/17 15:59 06/01/17 16:19 0.125 MG Nortriptyline HCl (Pamelor Cap) 25 mg HS PO 05/22/17 21:00 06/21/17 20:59 06/01/17 19:56 25 MG Mirtazapine (Remeron Solutab) 60 mg HS PO 05/22/17 21:00 06/21/17 20:59 06/01/17 19:54 60 MG Acetaminophen (Tylenol Tab) 650 mg Q4H PRN PO 05/22/17 16:00 06/21/17 15:59 Al Hydrox/Mg Hydrox/Simethicone (Maalox Max Susp) 15 ml Q4H PRN PO 05/22/17 16:00 06/21/17 15:59 Magnesium Hydroxide (Milk Of Magnesia Susp) 30 ml Q12H PRN PO 05/22/17 16:00 06/21/17 15:59 05/26/17 15:31 30 ML Ondansetron HCl (Zofran Inj) 4 mg Q6H PRN IV 05/22/17 16:00 06/21/17 15:59 Nitroglycerin (Nitrostat Tab) 0.4 mg UD PRN SL 05/22/17 16:15 06/21/17 16:14 05/24/17 08:05 0.4 MG Oxycodone/ Acetaminophen (Percocet 10-325MG Tab) 1 tab Q6H PRN PO 05/24/17 17:15 06/05/17 15:59 06/02/17 07:24 1 TAB Ranitidine HCl (zANTac TAB) 150 mg BID PO 05/25/17 21:00 06/24/17 20:59 06/02/17 07:23 150 MG Acetaminophen 100 ml @ 400 mls/hr Q8H PRN IV 05/27/17 21:15 06/26/17 21:14 05/27/17 21:44 400 MLS/HR Polyethylene (Miralax Powder Packet) 17 gm BID PO 05/28/17 09:30 06/27/17 09:29 06/02/17 07:20 17 GM Salmeterol Xinafoate/ Fluticasone (Advair Diskus 250/50 Inh) 1 puff BID INH 05/28/17 21:00 06/27/17 20:59 06/02/17 07:20 1 PUFF Tiotropium [place] (Spiriva Handihaler Inhaler) 1 puff QAM INH 05/29/17 09:00 06/28/17 08:59 06/02/17 07:24 1 PUFF Albuterol/ Ipratropium (Combivent Respimat Inh) 1 puffs QID INH 05/28/17 17:00 06/27/17 16:59 06/02/17 12:01 1 PUFFS Carvedilol (Coreg Tab) 3.125 mg BID PO 05/29/17 21:00 06/28/17 20:59 06/02/17 07:22 3.125 MG Warfarin Sodium (Coumadin Tab) 5 mg DAILY@16 PO 05/31/17 16:00 06/30/17 15:59 Future Hold 06/01/17 16:21 5 MG Midodrine (Proamatine Tab) 2.5 mg TID@08,12,17 PO 05/31/17 17:00 06/30/17 16:59 06/02/17 12:00 2.5 MG Sertraline HCl (Zoloft Tab) 25 mg HS PO 05/31/17 21:00 06/30/17 20:59 06/01/17 19:55 25 MG (Michaela Duong PA-C) Objective Vital Signs Date Time Temp Pulse Resp B/P (MAP) Pulse Ox O2 Delivery O2 Flow Rate FiO2 06/02/17 12:00 Room Air 06/02/17 11:27 36.8 92 20 112/74 (87) 94 Room Air 115 86/56 (66) 114 75/53 (60) 06/02/17 09:00 Room Air 06/02/17 07:04 36.6 94 20 115/76 (89) 91 06/02/17 04:43 36.5 101 18 129/81 (97) 93 Room Air 95 108/77 (87) 85/56 (66) 06/02/17 04:00 Room Air 06/02/17 00:00 Room Air 06/01/17 22:41 36.9 91 16 115/79 (91) 91 Room Air 06/01/17 20:00 Room Air 06/01/17 19:18 37.0 85 18 103/72 (82) 100 Room Air 97 107/77 (87) 84/59 (67) 06/01/17 16:19 98 06/01/17 16:00 Room Air (Michaela Duong PA-C) Physical Exam General Appearance: WD/WN, no apparent distress Neck: supple, no JVD, trachea midline Respiratory/Chest: lungs clear, normal breath sounds, no respiratory distress, no accessory muscle use Cardiovascular: regular rate, rhythm, no gallop, no murmur Abdomen: normal bowel sounds, non tender, soft Extremities: non-tender, no pedal edema Neurologic/Psychiatric: alert, oriented x 3 Skin: normal color, warm/dry (Michaela Duong PA-C) Laboratory Results Last 24 Hours Test 06/02/17 07:07 Prothrombin Time 36.4 SECONDS Prothromb Time International Ratio 3.6 (Michaela Duong PA-C) Assessment and Plan Mr. Morgan is a 56 y/o male with PMHx of Paroxysmal Atrial Fibrillation, Mixed Diastolic/Systolic CHF, S/P Pacer/ICD, H/O DVT/PE, HTN, HLD, DELICIA, and COPD who presents to the ED c/o L-sided pain and LOC. NSTEMI with CAD and Mixed Diastolic/Systolic CHF S/P ICD and Paroxysmal Atrial Fibrillation: STABLE - Continue ASA 81 mg daily and Plavix 75 mg daily; Atorvastatin 80 mg daily - Continue to hold Lisinopril and continue reduced Coreg to 3.125 BID with hold parameters only if systolic <95 with goal to hopefully titrate up however orthostasis causing limitations - Digoxin 0.125 mg daily - Continue Coumadin - INR 3.6 today and will hold tonight's dose and resume at 2.5 mg daily on 06/03. - Cardiology following - ICD/dual chamber pacer placement 05/27 - outpatient follow-up established Orthostasis: - Appears to be improving resting BP but still will orthostasis - will increase Midodrine to 5 mg TID and can ultimately move to 10 mg TID but will need to monitor for fluid retention Dyspnea on Exertion: Multifactorial - STABLE - Likely due to underlying COPD, Cardiomyopathy, and possible physiologic with orthostasis RLE Pain with Chronic Occlusions: STABLE - Treatment as above with Plavix/ASA and pain management - pain is better controlled with appropriate anticoagulation COPD without Exacerbation: - Advair BID, Combivent QID, Spiriva daily, and Ventolin 2 puffs Q6H PRN Code Status: FULL RESUSCITATION Disposition: - Hopeful D/C to [facility] next 1-2 days Discharge planning: other ([facility]) (Michaela Duong, DOROTHY) PA Physician Supervision Note: I interviewed and examined the patient. Discussed with Michaela Duong PAC and agree with findings and plan as documented in the note. Any exceptions or clarifications are listed here: None Patient remains about the same having symptomatic orthostasis after his STEMI. We are escalating doses of Midodrine although not much effect discussed the possibility of decreasing her limiting his Coreg vital signs are reviewed he remains orthostatic and symptomatic Cardiac exam is regular lungs are clear With sitting hypotension after [place] continue low-dose Coreg with attempts at increasing plasma volume to reduce orthostatic symptoms eventual placement at personal snf Documented By: Mario Torrez (Mario Torrez M.D.)
--- NOTE | 2017-06-02 15:16 | Cardiology Follow-Up ---
Subjective Date of Service: Jun 02, 2017. Pt evaluation today including: conversation w/ patient, physical exam, lab review, review of studies, review of inpatient medication list History of Present Illness In general he seems to be feeling a little bit better, he is not short of breath , he does not seem to have orthopnea and he does not have chest discomfort. He continues to be significantly orthostatic by symptoms. Social History Smoking Status: Former Smoker History of Alcohol Use: No Review of Systems Respiratory: No cough, No shortness of breath Cardiac: No chest pain Medications Cardiovascular: Item Value Date Time Midodrine 5 mg 06/02/17 1700 (Proamatine Tab) TID@08,12,17/PO Carvedilol 3.125 mg 05/29/17 2100 (Coreg Tab) BID/PO 06/02/17 0722 Aspirin 81 mg 05/23/17 0900 (Ecotrin Tab) QAM/PO 06/02/17 0723 Clopidogrel 75 mg 05/23/17 0900 Bisulfate QAM/PO 06/02/17 0723 (plAVix TAB) Atorvastatin 80 mg 05/22/17 2100 Calcium HS/PO 06/01/17 1956 (Lipitor Tab) Objective Vital Signs Past 12 Hours Date Time Temp Pulse Resp B/P (MAP) Pulse Ox O2 Delivery O2 Flow Rate FiO2 06/02/17 12:00 Room Air 06/02/17 11:27 36.8 92 20 112/74 (87) 94 Room Air 115 86/56 (66) 114 75/53 (60) 06/02/17 09:00 Room Air 06/02/17 07:04 36.6 94 20 115/76 (89) 91 06/02/17 04:43 36.5 101 18 129/81 (97) 93 Room Air 95 108/77 (87) 85/56 (66) 06/02/17 04:00 Room Air Last Recorded Weight-Kilograms: 105.000 Intake & Output 8-Hour Column 06/02/17 06/02/17 06/03/17 15:59 23:59 07:59 Intake Total 720 ml Balance 720 ml 24-Hour Column 06/03/17 07:59 Intake Total 720 ml Balance 720 ml Physical Exam Constitutional: Level of Distress: NAD Lungs: Auscultation: breath sounds normal Cardiovascular: Heart Auscultation: RRR, no murmurs, no rubs Extremities: no edema Incision is clean and dry. There is ecchymosis around the site, but no hematoma. Data Laboratory Results: Last 24 Hours Test 06/02/17 07:07 Prothrombin Time 36.4 SECONDS Prothromb Time International Ratio 3.6 Telemetry reviewed: Sinus rhythm and sinus tachycardia Assessment and Plan #1. Cardiomyopathy: He is doing relatively well symptomatically with his cardiomyopathy, however he has difficulty with activity due to lightheadedness and presyncope. He is only on carvedilol 3.125 mg twice a day for his cardiomyopathy due to orthostasis. #2. Orthostasis: Unfortunate his orthostasis is quite severe. Part of this may be due to a lower volume than on admission, although historically he has had complaints of orthostasis. Mid-to drain has not helped much, maybe slightly at low doses. I agree with going up on midodrine, however perhaps we should change his carvedilol. Since that is an alpha sravan and a beta sravan maybe he would do better with a pure beta sravan such as metoprolol. I will make that change for tomorrow morning since we should use metoprolol succinate not tartrate. #3. ICD: His ICD site appears to be healing well, the ecchymosis was expected and should resolve. #4. Shortness of breath with exertion: This is hard to assess since he is minimally active due to his orthostasis, but he is not complaining of dyspnea on exertion with minimal activities. I am going to arrange a follow-up office visit for him when he goes home, I'm going to make that appointment before he goes since he is going to be very difficult to reach and if he goes to a facility they can make sure that he gets sent to it. I can included in his discharge paperwork as a furniture sales consultant recommendation. Thank you for allowing me to participate in his care.
[2017-06-02] MEDS: DIGOXIN 0.125 MG TAB PO SCH (15:46)
[2017-06-02] MEDS: ATORVASTATIN 40 MG TAB PO SCH (20:59)
[2017-06-02] MEDS: MIRTAZAPINE SOLTAB 15 MG PO SCH (21:00)
[2017-06-02] MEDS: NORTRIPTYLINE HCL 25 MG CAP PO SCH (21:00)
[2017-06-02] MEDS: SERTRALINE HCL 50 MG TAB PO SCH (21:00)
[2017-06-03] VITALS (8 sets, daily range): BP systolic 74–124; BP diastolic 53–82; PULSE 68–108; TEMP 36.5–36.9; O2SAT 91–99
[2017-06-03] MEDS: OXYCODONE/ACETAMINOPHEN 10/325MG TAB PO PRN ×4 (03:09→22:02)
[2017-06-03 06:17] LABS: INR 3.3 (0.9-1.1)
[2017-06-03] MEDS: MIDODRINE 2.5 MG TAB PO SCH ×3 (08:09→17:02)
[2017-06-03] MEDS: CARVEDILOL 3.125 MG TAB PO SCH (08:10)
[2017-06-03] MEDS: BusPIRone 15 MG TAB PO SCH ×3 (08:10→20:28)
[2017-06-03] MEDS: RANITIDINE HCL 150 MG TAB PO SCH ×2 (08:10→20:29)
[2017-06-03] MEDS: CLOPIDOGREL BISULFATE 75 MG TAB PO SCH (08:11)
[2017-06-03] MEDS: ASPIRIN 81 MG ECTAB PO SCH (08:11)
[2017-06-03] MEDS: IPRATROPIUM BROMIDE/ALBUTEROL respimat INH INH SCH ×4 (08:12→20:27)
[2017-06-03] MEDS: FLUTICASONE/SALMETEROL 250/50 (ADVAIR) 14 PUFF/1 INHALER INH SCH ×2 (08:12→20:27)
[2017-06-03] MEDS: TIOTROPIUM BROMIDE 5 PUFF/90 MCG INH INH SCH (08:13)
[2017-06-03] MEDS: POLYETHYLENE (MIRALAX) 17 GM PACK PO SCH ×2 (08:14→20:28)
--- NOTE | 2017-06-03 13:02 | Hospitalist Progress Note ---
Hospitalist Progress Note Date of Service Jun 03, 2017. (Michaela Duong PA-C) Subjective Pt evaluation today including: conversation w/ patient, physical exam, chart review, lab review, review of studies, review of inpatient medication list Patient seen and evaluated. No acute events overnight. Continues to be orthostatic but does report once the initial dizziness goes away he can do the things he needs to. Doesn't feel the greatest with orthostasis however do not suspect this will change anytime soon. States Diltiazem was used and seemed to help when he had orthostatic issues in the past...mostly with preventing his HR from worsening. Explained why this is being held and using BB therapy. Not feeling great today and would like to be monitored overnight. Agrees to D/C tomorrow to [facility]. Have had multiple services in place and will manage his INRs until establishment with PCP. Constitutional: No fever, No chills Respiratory: No cough, No shortness of breath Cardiovascular: No chest pain Abdomen: No pain Male : No dysuria Heme: No abnormal bleeding/bruising (Michaela Duong, HUGOC) Medications Current Inpatient Medications Medications (Trade) Dose Ordered Sig/Mariama Route Start Time Stop Time Status Last Admin Dose Admin Albuterol (Ventolin Hfa Inhaler) 2 puffs Q6H PRN INH 05/22/17 16:00 06/21/17 15:59 Aspirin (Ecotrin Tab) 81 mg QAM PO 05/23/17 09:00 06/22/17 08:59 06/03/17 08:11 81 MG Atorvastatin Calcium (Lipitor Tab) 80 mg HS PO 05/22/17 21:00 06/21/17 20:59 06/02/17 20:59 80 MG Buspirone HCl (BusPAR TAB) 15 mg TID PO 05/22/17 21:00 06/21/17 20:59 06/03/17 13:35 15 MG Clopidogrel Bisulfate (plAVix TAB) 75 mg QAM PO 05/23/17 09:00 06/22/17 08:59 06/03/17 08:11 75 MG Digoxin (Lanoxin Tab) 0.125 mg DAILY@1600 PO 05/23/17 16:00 06/22/17 15:59 06/02/17 15:46 0.125 MG Nortriptyline HCl (Pamelor Cap) 25 mg HS PO 05/22/17 21:00 06/21/17 20:59 06/02/17 21:00 25 MG Mirtazapine (Remeron Solutab) 60 mg HS PO 05/22/17 21:00 06/21/17 20:59 06/02/17 21:00 60 MG Acetaminophen (Tylenol Tab) 650 mg Q4H PRN PO 05/22/17 16:00 06/21/17 15:59 Al Hydrox/Mg Hydrox/Simethicone (Maalox Max Susp) 15 ml Q4H PRN PO 05/22/17 16:00 06/21/17 15:59 Magnesium Hydroxide (Milk Of Magnesia Susp) 30 ml Q12H PRN PO 05/22/17 16:00 06/21/17 15:59 05/26/17 15:31 30 ML Ondansetron HCl (Zofran Inj) 4 mg Q6H PRN IV 05/22/17 16:00 06/21/17 15:59 Nitroglycerin (Nitrostat Tab) 0.4 mg UD PRN SL 05/22/17 16:15 06/21/17 16:14 05/24/17 08:05 0.4 MG Oxycodone/ Acetaminophen (Percocet 10-325MG Tab) 1 tab Q6H PRN PO 05/24/17 17:15 06/05/17 15:59 06/03/17 09:14 1 TAB Ranitidine HCl (zANTac TAB) 150 mg BID PO 05/25/17 21:00 06/24/17 20:59 06/03/17 08:10 150 MG Acetaminophen 100 ml @ 400 mls/hr Q8H PRN IV 05/27/17 21:15 06/26/17 21:14 05/27/17 21:44 400 MLS/HR Polyethylene (Miralax Powder Packet) 17 gm BID PO 05/28/17 09:30 06/27/17 09:29 06/03/17 08:14 17 GM Salmeterol Xinafoate/ Fluticasone (Advair Diskus 250/50 Inh) 1 puff BID INH 05/28/17 21:00 06/27/17 20:59 06/03/17 08:12 1 PUFF Tiotropium Bypro (Spiriva Handihaler Inhaler) 1 puff QAM INH 05/29/17 09:00 06/28/17 08:59 06/03/17 08:13 1 PUFF Albuterol/ Ipratropium (Combivent Respimat Inh) 1 puffs QID INH 05/28/17 17:00 06/27/17 16:59 06/03/17 11:30 1 PUFFS Carvedilol (Coreg Tab) 3.125 mg BID PO 05/29/17 21:00 06/28/17 20:59 06/03/17 08:10 3.125 MG Warfarin Sodium (Coumadin Tab) 5 mg DAILY@16 PO 05/31/17 16:00 06/30/17 15:59 Future Hold 06/01/17 16:21 5 MG Sertraline HCl (Zoloft Tab) 25 mg HS PO 05/31/17 21:00 06/30/17 20:59 06/02/17 21:00 25 MG Midodrine (Proamatine Tab) 5 mg TID@08,12,17 PO 06/02/17 17:00 06/30/17 16:59 06/03/17 11:29 5 MG (Michaela Duong PA-C) Objective Vital Signs Date Time Temp Pulse Resp B/P (MAP) Pulse Ox O2 Delivery O2 Flow Rate FiO2 06/03/17 11:42 Room Air 06/03/17 11:19 36.7 83 16 93/60 (71) 99 Room Air 104 87/62 (70) 68 74/53 (60) 06/03/17 08:00 Room Air 06/03/17 06:41 36.5 85 18 106/73 (84) 91 Room Air 06/03/17 04:40 36.6 72 20 114/80 (91) 96 Room Air 06/03/17 04:00 Room Air 06/03/17 00:00 Room Air 06/02/17 23:16 36.7 94 18 103/78 (86) 92 Room Air 113/78 (90) 82/59 (67) 06/02/17 20:00 Room Air 06/02/17 19:26 36.6 84 18 107/78 (88) 97 Room Air 06/02/17 16:00 94 Room Air 06/02/17 15:46 98 06/02/17 15:29 36.5 94 18 119/84 (96) 94 Room Air 102/73 (83) 79/53 (62) (Michaela Duong PA-C) Physical Exam General Appearance: WD/WN, no apparent distress ENT: hearing grossly normal Neck: supple, no JVD, trachea midline Respiratory/Chest: lungs clear, normal breath sounds, no respiratory distress, no accessory muscle use Cardiovascular: regular rate, rhythm, no gallop, no murmur Abdomen: normal bowel sounds, non tender, soft Neurologic/Psychiatric: alert, oriented x 3 Skin: normal color, warm/dry (Michaela Duong PA-C) Laboratory Results Last 24 Hours Test 06/03/17 05:55 Prothrombin Time 33.9 SECONDS Prothromb Time International Ratio 3.3 (Michaela Duong PA-C) Assessment and Plan Mr. Morgan is a 56 y/o male with PMHx of Paroxysmal Atrial Fibrillation, Mixed Diastolic/Systolic CHF, S/P Pacer/ICD, H/O DVT/PE, HTN, HLD, DELICIA, and COPD who presents to the ED c/o L-sided pain and LOC. NSTEMI with CAD and Mixed Diastolic/Systolic CHF S/P ICD and Paroxysmal Atrial Fibrillation: STABLE - Continue ASA 81 mg daily and Plavix 75 mg daily; Atorvastatin 80 mg daily - Continue to hold Lisinopril and continue reduced Coreg to 3.125 BID with hold parameters only if systolic <95 with goal to hopefully titrate up however orthostasis causing limitations - Digoxin 0.125 mg daily - Continue Coumadin - INR 3.3 and will continue to hold - likely institute 2.5 mg with INR check on Friday - I will adjust Coumadin per the result until he establishes with PCP on Friday. - Cardiology following - ICD/dual chamber pacer placement 05/27 - outpatient follow-up established Orthostasis: - Appears to be improving resting BP but still with orthostasis - will increase Midodrine to 5 mg TID could consider further titration as outpatient but at the same time not sure much benefit has been found with it. Dyspnea on Exertion: Multifactorial - STABLE - Likely due to underlying COPD, Cardiomyopathy, and possible physiologic with orthostasis RLE Pain with Chronic Occlusions: STABLE - Treatment as above with Plavix/ASA and pain management - pain is better controlled with appropriate anticoagulation COPD without Exacerbation: - Advair BID, Combivent QID, Spiriva daily, and Ventolin 2 puffs Q6H PRN Code Status: FULL RESUSCITATION Disposition: - Patient would like to stay one more day...unfortunately very limited on the ability to completely optimize him and unfortunately do not have the means to completely resolve his issues as time and hopeful gradual improvement in heart function can be obtained...it will be important to continue $4 medications to promote ability to afford medications. Will expect a level of non-compliance as well as social restrictions. Agrees to D/C tomorrow and will have HHS with PCP follow-up as well as HF clinic follow-up. Discharge planning: other ([facility]) (Michaela Duong, PA-C) PA Physician Supervision Note: I interviewed and examined the patient. Discussed with Michaela Duong PAC and agree with findings and plan as documented in the note. Any exceptions or clarifications are listed here: None Patient is in his usual state he's still having symptomatic orthostasis with arising but states the episodes of symptoms are slightly shorter. We are planning on possibly transition to personal retirement on 06/04. Vital signs are reviewed and showed persistent orthostasis on exam his heart is regular but distant lungs are clear abdomen normoactive bowel sounds and mentally is alert Status post STEMI with persistent orthostasis and reduced ejection fraction now supporting chronic systolic heart failure continue with secondary risk reduction with beta blockers aspirin supporting hypotension with midodrine Documented By: Mario Torrez (Mario Torrez M.D.)
--- NOTE | 2017-06-03 15:35 | Cardiology Follow-Up ---
Subjective Date of Service: Jun 03, 2017. Pt evaluation today including: conversation w/ patient, physical exam, lab review, review of studies, review of inpatient medication list History of Present Illness He may be feeling a little bit better today, however he is still complaining of lightheadedness when he stands up and shortness of breath with exertion. Social History Smoking Status: Former Smoker History of Alcohol Use: No Review of Systems Respiratory: No cough, No shortness of breath Cardiac: No chest pain Medications Cardiovascular: Item Value Date Time Midodrine 5 mg 06/02/17 1700 (Proamatine Tab) TID@08,12,17/PO 06/03/17 1129 Objective Vital Signs Past 12 Hours Date Time Temp Pulse Resp B/P (MAP) Pulse Ox O2 Delivery O2 Flow Rate FiO2 06/03/17 15:02 36.9 95 18 104/72 (83) 92 06/03/17 11:42 Room Air 06/03/17 11:19 36.7 83 16 93/60 (71) 99 Room Air 104 87/62 (70) 68 74/53 (60) 06/03/17 08:00 Room Air 06/03/17 06:41 36.5 85 18 106/73 (84) 91 Room Air 06/03/17 04:40 36.6 72 20 114/80 (91) 96 Room Air 06/03/17 04:00 Room Air Last Recorded Weight-Kilograms: 103.400 Intake & Output 8-Hour Column 06/03/17 06/03/17 06/04/17 15:59 23:59 07:59 Intake Total 600 ml Balance 600 ml 24-Hour Column 06/04/17 07:59 Intake Total 600 ml Balance 600 ml Physical Exam Constitutional: Level of Distress: NAD Lungs: Auscultation: breath sounds normal Cardiovascular: Heart Auscultation: RRR, no murmurs, no rubs Extremities: no edema Incision is clean and dry. There is ecchymosis around the site, but no hematoma. Data Laboratory Results: Last 24 Hours Test 06/03/17 05:55 Prothrombin Time 33.9 SECONDS Prothromb Time International Ratio 3.3 Telemetry reviewed: Sinus rhythm and sinus tachycardia Assessment and Plan #1. Cardiomyopathy: He is doing relatively well symptomatically with his cardiomyopathy, however he has difficulty with activity due to lightheadedness and presyncope. I would like to switch to metoprolol succinate to see if that will be as effective and better tolerated. #2. Orthostasis: Unfortunate his orthostasis is quite severe. Part of this may be due to a lower volume than on admission, although historically he has had complaints of orthostasis. Midodrine has not helped much, maybe slightly at low doses. I'm going to give him metoprolol tartrate tonight instead of carvedilol and start metoprolol succinate tomorrow morning. #3. ICD: His ICD site appears to be healing well, the ecchymosis was expected and should resolve. #4. Shortness of breath with exertion: This is hard to assess since he is minimally active due to his orthostasis, but he is not complaining of dyspnea on exertion with minimal activities. I have arranged follow-up with Catherine (our PA) 2017 at 4 PM. I placed this information in his discharge paperwork. Thank you for allowing me to participate in his care.
[2017-06-03] MEDS: DIGOXIN 0.125 MG TAB PO SCH (15:51)
[2017-06-03] MEDS: ATORVASTATIN 40 MG TAB PO SCH (20:28)
[2017-06-03] MEDS: MIRTAZAPINE SOLTAB 15 MG PO SCH (20:29)
[2017-06-03] MEDS: NORTRIPTYLINE HCL 25 MG CAP PO SCH (20:30)
[2017-06-03] MEDS: SERTRALINE HCL 50 MG TAB PO SCH (20:30)
[2017-06-03] MEDS ORDERED: METOPROLOL TARTRATE 25 MG TAB PO ONE (21:00)
[2017-06-04 03:00] VITALS: BP_SYST 68; BP_SYST 83; BP_SYST 96; BP_DIAS 50; BP_DIAS 53; BP_DIAS 71; PULSE 101; PULSE 88; PULSE 97; TEMP 36.5; O2SAT 94
[2017-06-04] MEDS: OXYCODONE/ACETAMINOPHEN 10/325MG TAB PO PRN ×2 (03:38→14:56)
[2017-06-04 07:37] VITALS: BP_SYST 107; BP_SYST 120; BP_SYST 137; BP_DIAS 74; BP_DIAS 84; BP_DIAS 86; PULSE 80; TEMP 36.5; O2SAT 97
[2017-06-04 07:43] LABS: HEMATOCRIT 35.8 % (42-52); HEMOGLOBIN 10.9 g/dL (14.0-18.0); MEAN CELL VOLUME 86.1 fL (80-100); MEAN CORPUSCULAR HEMOGLOBIN 26.2 pg (25-34); MEAN CORPUSCULAR HGB CONC 30.4 g/dl (32-36); MEAN PLATELET VOLUME 10.1 fL (7.4-10.4); PLATELET COUNT 226 K/uL (130-400); RED CELL DISTRIBUTION WIDTH CV 17.3 % (11.5-14.5); RED CELL DISTRIBUTION WIDTH SD 54.7 fL (36.4-46.3); WHITE BLOOD COUNT 5.62 K/uL (4.8-10.8)
[2017-06-04 07:51] LABS: INR 2.3 (0.9-1.1)
[2017-06-04 08:10] LABS: CREATININE 1.06 mg/dl (0.60-1.40)
[2017-06-04] MEDS: ASPIRIN 81 MG ECTAB PO SCH (08:38)
[2017-06-04] MEDS: CLOPIDOGREL BISULFATE 75 MG TAB PO SCH (08:38)
[2017-06-04] MEDS: RANITIDINE HCL 150 MG TAB PO SCH (08:38)
[2017-06-04] MEDS: BusPIRone 15 MG TAB PO SCH ×2 (08:39→14:05)
[2017-06-04] MEDS: MIDODRINE 2.5 MG TAB PO SCH ×2 (08:40→12:04)
[2017-06-04] MEDS: IPRATROPIUM BROMIDE/ALBUTEROL respimat INH INH SCH ×2 (08:41→12:03)
[2017-06-04] MEDS: POLYETHYLENE (MIRALAX) 17 GM PACK PO SCH (08:41)
[2017-06-04] MEDS: FLUTICASONE/SALMETEROL 250/50 (ADVAIR) 14 PUFF/1 INHALER INH SCH (08:41)
[2017-06-04] MEDS ORDERED: METOPROLOL SUCC 50MG EXT REL TAB PO SCH (09:00)
[2017-06-04] MEDS: TIOTROPIUM BROMIDE 5 PUFF/90 MCG INH INH SCH (09:35)
[2017-06-04 11:18] VITALS: BP 63/47; PULSE 110
[2017-06-04 11:35] VITALS: BP 92/66; PULSE 93; TEMP 36.5; O2SAT 93
[2017-06-04] MEDS ORDERED: NORT25CA PO (12:23)
[2017-06-04] MEDS ORDERED: OXYC-106 PO (12:23)
[2017-06-04] MEDS ORDERED: ATOR-26 PO (12:23)
[2017-06-04] MEDS ORDERED: ZLF50 PO (12:23)
[2017-06-04] MEDS ORDERED: LORA10CA2 PO (12:23)
[2017-06-04] MEDS ORDERED: BUSP15TA70 PO (12:23)
[2017-06-04] MEDS ORDERED: SPRIN INH (12:23)
[2017-06-04] MEDS ORDERED: CYCL10TA6 PO (12:23)
[2017-06-04] MEDS ORDERED: IPRA1AER2 INH (12:23)
[2017-06-04] MEDS ORDERED: CLOP1TAB15 PO (12:23)
[2017-06-04] MEDS ORDERED: ZNT150 PO (12:23)
[2017-06-04] MEDS ORDERED: LPR25 PO (12:23)
[2017-06-04] MEDS ORDERED: ASPI81TA28 PO (12:23)
[2017-06-04] MEDS ORDERED: MIRT30TA2 PO (12:23)
[2017-06-04] MEDS ORDERED: VNTHFA/IN INH (12:23)
[2017-06-04] MEDS ORDERED: ADVIN25050 INH (12:23)
[2017-06-04] MEDS ORDERED: CMD25 PO (12:23)
[2017-06-04] MEDS ORDERED: LNX125 PO (12:23)
[2017-06-04] MEDS ORDERED: PRMT25 PO (12:23)
--- NOTE | 2017-06-04 12:36 | Discharge Instructions ---
Discharge Instructions Date of Service Jun 04, 2017. Admission Reason for Admission: Nstemi Discharge Discharge Diagnosis / Problem: NSTEMI Discharge Goals Goal(s): Decrease discomfort, Improve function, Increase independence Activity Recommendations Activity Limitations: per Instructions/Follow-up section Lifting Limitations: gradually increase as tolerated Exercise/Sports Limitations: gradually increase as tolerated . Instructions / Follow-Up Instructions / Follow-Up Heart Attack and Low Pumping Action of Heart with Dizziness with Standing Up: - At this time the thing that is needed is time with the hopes of your heart function improving. We will use medications to help improve your heart function with time. - You will be provided with multiple prescriptions but these will be the MOST IMPORTANT to purchase compared to the others. METOPROLOL, PLAVIX, ASPIRIN, ATORVASTATIN, AND COUMADIN. Hopefully as the finances get set up further medications can be added. Not all of these medications will be on the $4 list so focus on these ones to improve your heart function - For your orthostatic hypotension change positions slowly and wait a few minutes for dizziness to subside before walking or moving. -- The Midodrine is not cheap and can be used when finances in place. Overall not sure it has been that helpful. - Hopefully with time your medications can be further adjusted to give you the best heart protection possible - Your inhalers are not covered under the $4 option and will be given the ones in hospital - discuss with your new family doctor and possible samples can be given You will have home health services to help with blood draws and medical management. You will live at [place] and it will be important to work on your disability paperwork and medication coverage. 1. Metoprolol Tartrate 25 mg twice a day - this is the medication to gradually help improve your heart function 2. Warfarin 2.5 mg daily with INR check on Friday and adjustments per reading 3. Take a daily Aspirin 81 mg daily - will give a Rx for Plavix which will be helpful and if affordable recommend this too as you have stents 4. The cholesterol medication is important too. The atorvastatin 80 mg daily will help with plaque and cholesterol in your arteries. 5. At this time if Digoxin is not affordable this can be held in the meantime awaiting finances AGAIN THE MOST IMPORTANT WILL BE METOPROLOL, ASPIRIN, WARFARIN, ATORVASTATIN, and PLAVIX "Please, follow up with Jocelyn FIELDS on FridayJune 09 at 2:30 pm ( arrive 2:15 pm). *This office is located in [address] of [facility] next to this hospital. If you need to reschedule this appointment you can call the office at . Please, follow up at [facility] Office with Catherine Cooper PA-C ([facility]) on FridayJune 09 at 4:00 pm. *This office is located in [address] of [facility] next to this hospital. If you need to change this appointment, you can call the office at . Please, follow up (again) at the [facility] Office on FridayJUNE 25 at 10:45 AM for a pacemaker check. *[address] [facility]. The office phone number is [phone]." Home Care: * Take your medications exactly as directed. Don't skip doses. * Remember that recovery after a heart attack takes time. Plan to rest for at lease 4-8 weeks while you recover. Then return to normal activity when your doctor says it's okay. * Ask your doctor about joining a heart rehabilitation program. * Tell your doctor if you are feeling depressed. Feelings of sadness are common after a heart attack, but it is important that you speak to someone if you are feeling overwhelmed by these feelings. * If you are having chest pain, call 911 for an ambulance. Do NOT drive yourself to the hospital. * Ask your family members to learn CPR. * Learn to take your own blood pressure and pulse. Keep a record of your results. Ask your doctor when you should seek emergency medical attention. He or she will tell you which blood pressure reading is dangerous. Lifestyle Changes: * Maintain a healthy weight. Get help to lose any extra pounds. * Cut back on salt. * Limit canned, dried, packaged, and fast foods. * Don't add salt to your food. * Season foods with herbs instead of salt when you cook. * Break the smoking habit. Enroll in a stop-smoking program to improve your chances of success. * Limit fatty foods. * Ask your doctor about having your lipid levels checked regularly. * Build up your activity according to your doctor's recommendation. * Ask your doctor when it's okay to resume sexual activity. * Tell your doctor about any erectile dysfunction (ED) medication you are taking. Some ED medications are not safe if you take certain heart medications. * Try to manage stress. Follow Up: It is important for you to keep your follow up appointments with your medical provider. Current Hospital Diet Patient's current hospital diet: AHA Diet (Heart Healthy) Discharge Diet Recommended Diet: AHA Diet (Heart Healthy) Pending Studies Studies pending at discharge: no Laboratory Results Hemoglobin A1c Test 05/23/17 03:43 Range/Units Estimated Average Glucose 100 mg/dl Hemoglobin A1c 5.1 4.5-5.6 % Lipid Panel Test 05/23/17 03:43 Range/Units Triglycerides Level 75 0-150 mg/dl Cholesterol Level 104 0-200 mg/dl HDL Cholesterol 39 mg/dl Cholesterol/HDL Ratio 2.7 LDL Cholesterol, Calculated 50 mg/dl Medical Emergencies . Who to Call and When: Medical Emergencies: If at any time you feel your situation is an emergency, please call 911 immediately. Call 911 immediately or go to your nearest Emergency Room if you experience any of the following: Warning Signs and Symptoms of a Heart Attack * Chest pain that is not relieved by medication * Shortness of breath . Non-Emergent Contact Non-Emergency issues call your: Primary Care Provider Call Non-Emergent contact if: you have a fever, your pain is concerning you, you have any medication questions . . "Provider Documentation" section prepared by Michaela Duong. . AMI Core Measures Reason no ASA as I/P: Treatment provided - N/A Reason no ASA at D/C: Treatment provided - N/A Reason no statin as I/P: Treatment provided - N/A Reason no statin at D/C: Treatment provided - N/A VTE Core Measure Inpt VTE Proph given/why not?: Warfarin (Coumadin), Other Anticoagulation ( Heparin gtt) [place] Drug Monitoring Program Search Results: patient reviewed within database, no issues identified
[2017-06-04 12:49] VITALS: BP 92/66; PULSE 93; TEMP 36.5; O2SAT 93
[2017-06-04] MEDS ORDERED: WARFARIN SOD 2.5 MG TAB PO SCH (16:00)
--- NOTE | 2017-06-04 19:11 | Discharge Summary ---
Discharge Summary Date of Service Jun 04, 2017. Discharge Summary Admission Date: May 22, 2017 at 16:10 Discharge Date: Jun 04, 2017 Discharge Disposition: Home with services (Pratima Fry) Principal Diagnosis: NSTEMI with Systolic Congestive Heart Failure Problems/Secondary Diagnoses: 1. Mixed Diastolic/Systolic CHF 2. Paroxysmal Atrial Fibrillation 3. CAD S/P WI and Stents with Re-Occlusion 4. S/P ICD/Pacer 5. H/O DVT/PE 6. Peripheral Vascular Disease with Occlusion 7. DELICIA 8. COPD Procedures: ANGIO AA KATHARINE LE RUNOFF FINDINGS: Mechanical Maintenance topogram: Left subclavian implanted cardiac defibrillator with lead to the right ventricular apex. Cardiomegaly. Elevation left hemidiaphragm. Vasculature: No inflammatory change, hematoma, or evidence of active extravasation. No findings to suggest an acute arterial injury or impending rupture. Aorta: Atherosclerosis of the abdominal aorta with infrarenal ectasia measuring up to 2.8 cm in diameter. Patent origins of the major branch vessels. Common iliac arteries: Aneurysmal dilatation of the bilateral common iliac arteries, on the right measuring 3.1 cm in diameter and on the left measuring 3.1 cm in diameter. Extensive noncalcified atherosclerotic plaque circumferentially noted at the bilateral common iliac arteries without significant luminal narrowing. Internal and external iliac arteries: Aneurysmal dilatation extends into the right internal iliac artery, which measures 1.9 cm in diameter. No significant extension into the left though there is a separate less prominent aneurysmal dilatation of the more distal left internal iliac artery, which measures 1.5 cm in diameter. Bilateral external iliac arteries patent though stenosis noted on the right with a minimum diameter of 5.5 mm in comparison to the normal distal diameter of 7.4 mm (approximately 25% stenosis). Common femoral arteries: Bilateral common femoral arteries widely patent. Right lower extremity arteries: Vascular stent in place in the mid to distal right superficial femoral artery (SFA), which appears patent. Proximal to the stent there is extensive luminal irregularity. The stent appears to bridge a proximal right popliteal artery aneurysm, which measures 2 cm in diameter (series 7 image [id number]). No opacification of the occluded aneurysm. The stent terminates prior to the right lower extremity branching. Right anterior tibial artery (ANEL) widely patent. Right peroneal artery and right posterior tibial artery not well opacified proximally though with extensive calcified atherosclerotic plaque. Left lower extreme the arteries: Postsurgical changes of left SFA bypass grafting with a patent graft along its entire course. Extensive aneurysmal dilatation and irregularity of the occluded [place] left SFA. The graft terminates at the level of the left popliteal artery immediately distal to a [place] left popliteal arterial aneurysm. Reimplantation of the left anterior tibial artery at the level of the graft insertion. The reinserted left ANEL is patent though significant atherosclerotic narrowing (at least 50% luminal narrowing) noted at the level of the interosseous course. More distally the left ANEL is widely patent. Left peroneal artery appears occluded throughout the proximal to mid course but is reconstituted by collateral flow. Left posterior tibial artery appears occluded with extensive calcified atherosclerotic plaque. Remaining abdomen and pelvis: Lung bases: Minimal basilar opacities, likely atelectasis. Multichamber enlargement of the heart. Coronary artery calcification. Partially visualized implanted cardiac defibrillator lead to the right ventricular apex. No pericardial or pleural effusion. Liver: Normal morphology. Normal appearance allowing for phase of contrast. Biliary: No gross biliary ductal dilatation allowing for phase of contrast. Normal gallbladder. Pancreas: Mild parenchymal atrophy. Spleen: Normal. Adrenal glands: Normal. Kidneys and ureters: Normal allowing for the phase of contrast. No nephrolithiasis. Single main renal arteries bilaterally. No hydronephrosis. Bladder: Incompletely evaluated secondary to underdistention. Pelvic organs: Prostate and seminal vesicles normal. Bowel: Normal appendix. No bowel obstruction. Peritoneal cavity: No free fluid or intraperitoneal gas. Lymph nodes: No enlarged lymph nodes in the abdomen or pelvis. Abdominal wall: Small fat-containing umbilical hernia. Musculoskeletal: Degenerative changes of the spine. Old rib fractures noted. Vertebral body height loss of L5 Remaining bilateral lower extremities: Extensive subcutaneous edema in the left lower extremity greater than the right with extensive postsurgical changes along the anterior and medial left thigh from prior bypass grafting. Laminar fluid along the medial left thigh likely postsurgical seroma. This extends into the popliteal fossa deep to the medial head of gastrocnemius. IMPRESSION: 1. No findings to suggest acute vascular injury or aneurysm rupture. 2. Extensive atherosclerosis with multiple sites of aneurysmal dilatation (infrarenal aorta 2.8 cm, right common iliac artery 3.1 cm, left common iliac artery 3.1 cm, right internal iliac artery 1.9 cm, left internal iliac artery 1.5 cm). 3. Postsurgical changes of right SFA-popliteal stent with resulting occlusion of the right popliteal aneurysm. 4. Possible occlusion of right peroneal and posterior tibial arteries, likely chronic. Patent right ANEL. 5. Post surgical changes of left SFA bypass grafting with patent graft. 6. Extensive aneurysmal dilatation of irregularity of the occluded [place] left SFA. 7. Post surgical changes of reimplanted left ANEL, which is patent. 8. 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 ARTERIAL DOPPLER DUPLEX ULTRASOUND LEFT LOWER EXTREMITY FINDINGS: There is triphasic flow within the left common femoral artery. The [place] superficial femoral artery and [place] popliteal arteries are occluded. There is aneurysmal dilatation of the distal [place] superficial femoral artery and popliteal artery. There is a left-sided bypass graft extending from the left common femoral artery to the tibioperoneal trunk. There is a high velocity jet at the reimplanted anterior tibial origin, consistent with a stenosis. No flow is visualized within the posterior tibial and peroneal arteries, suggesting occlusion. The right brachial systolic pressure was 113 mmHg. The posterior tibial systolic pressure on the left is 122 mmHg. The dorsalis pedis systolic pressure in the left is 119 mmHg. This yields ankle arm index of 1.1. IMPRESSION: 1. Occlusion of the [place] superficial femoral and popliteal arteries 2. Right superficial femoral artery stent which appears to extend to the distal popliteal/tibioperoneal trunk. 3. Suspected mild stenosis involving the origin of the reimplanted anterior tibial artery 4. Occlusion of the posterior tibial and peroneal arteries. 5. The bypass graft itself is patent 6. Left ankle-brachial index of 1.1 CHEST 2 VIEWS ROUTINE FINDINGS: Interval placement of a permanent bipolar cardiac pacemaker/defibrillator. Pre-existing residual unipolar cardiac pacer. No evidence of pneumothorax. Leads are in good position. Subsegmental atelectasis left base. IMPRESSION: Interval placement of a permanent bipolar cardiac pacemaker/fibrillator. No evidence of pneumothorax. Atelectasis left base. Cardiac Catheterization: Summary: 1. Severe 2 vessel coronary artery disease - Occluded proximal RCA just proximal to prior stents placed 5 weeks ago ( limited left to right collaterals to R-PLB, PDA). - Occluded 1st diagonal, fills distally by left to left collaterals 2. Normal intracardiac filling pressure ECHOCARDIOGRAM: -- Conclusions -- 1. Mildly dilated LV with mild concentric LVH. 2. Severe LV dysfunction. LVEF 20-25%. Inferior, inferolateral wall motion abnormalities (see lamar for details). 3. Normal RV size with mild RV dysfunction. 4. Aortic valve sclerosis without stenosis. 5. Normal estimated PA pressures. Est CVP 8mmHg. 6. No prior studies for comparison. Consultations: 1. Cardiology Medication Reconciliation New Medications: Loratadine (Claritin) 10 Mg Cap 1 CAP PO DAILY for 30 Days, #30 CAP Metoprolol Tartrate (Lopressor) 25 Mg Tab 25 MG PO BID for 30 Days, #60 TAB Fluticasone Prop/Salmeterol (Advair Diskus 250-50 Mcg/Dose) 14 Puff/1 Inhaler Aerp 1 PUFF INH BID for 30 Days, #1 INHALER Ipratropium-Albuterol (Combivent Respimat) 1 Aer Aer 1 PUFFS INH QID, #1 INHALER Midodrine (Midodrine HCl) 2.5 Mg Tab 5 MG PO TID@08,12,17, #60 TAB Ranitidine HCl (Ranitidine HCl) 150 Mg Tab 150 MG PO BID for 30 Days, #60 TAB Sertraline HCl (Sertraline HCl) 50 Mg Tab 25 MG PO HS for 30 Days, #15 TAB Tiotropium Crystal (Spiriva Handihaler) 5 Puff/90 Mcg Aerp 1 PUFF INH QAM, #1 INHALER Warfarin Sod (Coumadin) 2.5 Mg Tab 2.5 MG PO DAILY@16 for 30 Days, #30 TAB Continued Medications: Albuterol Hfa (Ventolin Hfa) 200 Puffs/60367 Mcg Aers 2 PUFFS INH Q6H PRN for Shortness of Breath, #1 INHALER (This prescription has been renewed) Aspirin (Aspirin Ec) 81 Mg Tab 81 MG PO QAM for 30 Days, #30 TABS (This prescription has been renewed) Atorvastatin (Lipitor) 80 Mg Tab 80 MG PO HS for 30 Days, #30 TAB (This prescription has been renewed) Buspirone Hcl (Buspar) 15 Mg Tab 15 MG PO TID for 30 Days, #90 TAB (This prescription has been renewed) Clopidogrel (Plavix) 75 Mg Tab 75 MG PO QAM for 30 Days, #30 TAB (This prescription has been renewed) Cyclobenzaprine Hcl (Flexeril) 10 Mg Tab 10 MG PO BID, #60 TAB (This prescription has been renewed) Digoxin (Digoxin) 0.125 Mg Tab 0.125 MG PO QAM, #30 TABS (This prescription has been renewed) Mirtazapine Soltab (Remeron Soltab) 30 Mg Soltab 60 MG PO HS for 30 Days, #60 TAB (This prescription has been renewed) Nortriptyline (Pamelor) 25 Mg Cap 25 MG PO HS for 30 Days, #30 CAP (This prescription has been renewed) Oxycodone/Acetaminophen 10MG/325MG (Percocet 10MG/325MG) Tab 1 TAB PO TID PRN for Pain for 3 Days, #9 TAB (This prescription has been renewed ) Discontinued Medications: Cetirizine (Zyrtec) 10 Mg Tab 10 MG PO QAM, TAB Diltiazem Hcl Ext Rel (Tiazac) 180 Mg Capcr 180 MG PO QAM, CAP Esomeprazole Magnesium (Nexium) 40 Mg Capcr 40 MG PO QAM, CAP Isosorbide Mononitrate Ext Rel (Imdur Ext Rel) 30 Mg Tabcr 0.5 TAB PO DAILY, TAB Rivaroxaban (Xarelto) 20 Mg Tab 20 MG PO QPM, TAB Testosterone (Androderm) 2 Mg/24 Hr Dis 1 PATCH TOP DAILY Discharge Exam Review of Systems: Constitutional: No fever, No chills, No weakness, No fatigue ENT: No nasal symptoms, No sore throat, No trouble swallowing Respiratory: + dyspnea on exertion, No cough, No wheezing, No dyspnea at rest Cardiovascular: No chest pain, No orthopnea, No palpitations Abdomen: No pain, No nausea, No vomiting, No diarrhea, No constipation, No GI bleeding Musculoskeletal: + calf pain (intermittent - chronic LLE) Genitourinary - Male: No dysuria Hematologic / Lymphatic: No abnormal bleeding/bruising Integumentary: No rash Physical Exam: General Appearance: no apparent distress Eyes: sclerae normal ENT: hearing grossly normal Neck: supple, no JVD, trachea midline Respiratory/Chest: lungs clear, normal breath sounds, no respiratory distress, no accessory muscle use Cardiovascular: regular rate, rhythm, no gallop, no murmur Abdomen / GI: normal bowel sounds, non tender, soft Extremities: no pedal edema Neurologic/Psychiatric: alert, oriented x 3 Skin: normal color, warm/dry Hospital Course ADMISSION: Mr. Morgan is a 56 y/o male with PMHx of Paroxysmal Atrial Fibrillation, Mixed Diastolic/Systolic CHF, S/P Pacer/ICD, H/O DVT/PE, HTN, HLD , DELICIA, and COPD who presents to the ED c/o L-sided pain and LOC. Patient reports his cardiac history started approximately 8-9 years ago when he developed a viral cardiomyopathy at which she reports his EF being 6%. He ultimately had an ICD placed in [facility] states he has been considered for heart transplantation. Due to multiple episodes of DVTs and PEs the surgery had to be postponed. With medical management he reports his EF began to improve. He states his last known EF was 30% but states this was a while ago. In March, he was in the [facility] as his mother recently and was getting her affairs in order. He reports he was found passed out on the floor and was taken to Hospital in [place]. While hospitalized, he states he had 2 stents placed in his coronary arteries and stents placed in the LLE and had LLE bypass. He states since leaving the hospital he has had progressive GROSSMAN which has limited his activity. He also reports chronically having decent blood pressures at rest but becoming hypotensive with ambulation and feeling dizzy and lightheaded. On 05/13 he notes that he was walking outside and the cold air is very irritative for him and had resultant firing of his ICD x 6 times. He reports on 05/19 he was sleeping and was awoken due to his ICD firing. Last night, he reports he was trying to sleep and developed significant LLE pain that kept him up at night. He states the pain is worse in the L ankle to the knee but the pain does radiate up his thigh, left side, into L neck, and down L arm. He states with this pain he noticed chest tightness and SOB. The CP resolved with NTG. He noted that his SOB appeared to be getting worse throughout the day and figured he needed evaluated. When he was getting a shower he felt lightheaded and laid down in the shower and states he believed her lost consciousness. He also reports multiple black bowel movements over the past couple days. He is on Xarelto, ASA, and Plavix and denies additional NSAIDs , iron supplementation, or Pepto-Bismol. He states he has had GI ulcers in the past. In the ED, patient was hypotensive after NTG but afebrile and without leukocytosis. Denies CP but troponins at 12. Reporting last ICD firing was on 05/19. Dr. Parker was at bedside and pacer was interrogated. Patient appears in no acute distress, mentating appropriately, denies CP. Only complaint is of LLE pain. States the redness of his leg is worse than normal but the swelling is improving. States he has been wrapping his leg with warm compresses that seems to help. Patient states he ran out of his Xarelto and hasn't taken it the past couple days. HOSPITAL COURSE: Mr. Morgan was admitted for NSTEMI resulting in Mixed Diastolic/ Systolic CHF S/P ICD/Pacer Adjustment. Hospital stay complicated by significant orthostasis. A few days into admission, patient finally revealed he is homeless and without financial means. Did provide the patient with all prescriptions but emphasized the importance of certain medications due to limited finances. Goal was to prescribe off the $4 [employer] list for some medications. Hopefully when his social security gets secured he can be optimized on his medications NSTEMI with CAD and Mixed Diastolic/Systolic CHF S/P ICD and Paroxysmal Atrial Fibrillation: STABLE - Rx given for ASA and Plavix - needs both but cost of Plavix will limit purchase - could consider increasing ASA dosing if Plavix could not be purchased as he has already re-occluded stents placed only months ago - Metoprolol 25 mg BID Rx given as this is a $4 medication - due to further concerns did discuss with Pratima Fry that he may need to split the pill in half and take 12.5 mg BID to prevent worsening of his orthostasis - If Toprol XL can be purchased in the future this could be considered - Unfortunately optimizing him cardiovascularly will be difficult due to the orthostasis - I am guarded on his overall recovery given his EF is 20-25% and ultimately time will be needed to see what heart recovery he will have - Previously on Diltiazem, Lisinopril, and Coreg - all D/C'd - unsure how long he has been off these as he was given meds in [place] but has been without due to his homelessness/lack of finances - Changed Xarelto to Coumadin and will manage his INR until established with PCP - currently INR 2.3 and reached therapeutic level in 2 days and suspect he could be a hard stabilizer - No further ICD firing during admission or CP - Troponins peaked at 12 and trended down - Cardiology followed - Improved his ICD/Pacer with Dual Chamber on 05/27 - follow -up with [facility] Clinic on 06/09 -- Appreciated recommendations however financial burden and orthostasis prevented optimization Orthostasis: - Was improving today - tried Midodrine but suspect little to no added benefit to as goal for BB was for heart protection and not BP. - Is symptomatic with orthostatics but states once the dizziness subsides he can independently ambulate - Suspect this will be an ongoing issue and hopefully with time will improve and medications can be optimized GROSSMAN: Multifactorial - COPD/CHF/Orthostasis....IMPROVING - Hopefully will improve with time RLE Pain with Chronic Occlusions: - Goal will be for Plavix re-institution when affordable - again can continue ASA and possible increase dosing of this and continue anti-coagulation COPD without Exacerbation: - Rx given for inhalers but are $300+ and will given the inhalers from hospital for temporary coverage - maybe office has samples? Disposition: - Patient was setup with [facility]. Patient was previously incarcerated and states family will not take him in. He needs to set up his social security/disability and has no current income -- He will receive Home Health Services, [facility] will manage his INR until PCP establishment, local [facility] will supply some quick for medication purchase - Patient is stable however extremely ill from a chronic standpoint. I am guarded on overall prognosis given inability to medicinally optimize his care for his heart failure due to orthostatic limitations and financial limitations - He is at high risk for readmission given his financial limitations and overall severe chronic issues - hopefully with time his heart function will improve but again guarded - Did establish patient with PCP and Heart Failure Clinic Patient is complex and will require close monitoring as an outpatient. If you would have any questions, as this summary just covers the basics. Feel free to call Michaela Duong PA-C with [facility] at [phone] or email at [email or web address]. Thanks PA Physician Supervision Note: I interviewed and examined the patient. Discussed with Michaela Duong PAC and agree with findings and plan as documented in the note. Any exceptions or clarifications are listed here: None Patient is seen prior to discharge he was sitting up having slightly symptoms from low blood pressure he however stated he felt fine and no chest pressure he remains orthostatic vital signs his cardiac exam is distant but regular no defined murmurs lungs are clear without wheezes or crackles patient is status post STEMI with persistent orthostatic hypotension we will discharge patient on low-dose of Toprol he needs to get the $4 [employer] prescription plan he is blood pressure prevents him from being on lisinopril and reviews management in the hospital keep his blood pressure control he remains on aspirin atorvastatin and digoxin as Patient follow-up in one week with primary care provider Documented By: Mario Torrez Total Time Spent: Greater than 30 minutes This includes examination of the patient, discharge planning, medication reconciliation, and communication with other providers. Discharge Instructions Please refer to the electronic Patient Visit Report (Discharge Instructions) for additional information. Additional Copies To Jocelyn Turner CRNP; Catherine Cooper ., DOROTHY
== END 2017-06-04 15:10 | disposition home health service (06) | DRG 243 ==
LOC: EDBD 12:01 → C.EDA 12:02 → C.MSICU 16:10 → UNDOADMIN 16:10 → ENRESERV 16:39 → C.2T 05-23 15:15 → EDBEDREQ 05-29 03:14 → ENRESERV 05-29 03:33 → C.MED 05-29 03:57
PROVIDERS: ADMIT Internal Medicine; ATTEND Internal Medicine
PROC: 4A023N7 Measurement of Cardiac Sampling and Pressure, Left Heart, Percutaneous Approach (ICD-10-PCS; principal; 2017-05-23 10:49)
PROC: B211YZZ Fluoroscopy of Multiple Coronary Arteries using Other Contrast (ICD-10-PCS; principal; 2017-05-23 10:49)
PROC: 02H63JZ Insertion of Pacemaker Lead into Right Atrium, Percutaneous Approach (ICD-10-PCS; 2017-05-27)
PROC: 0JH606Z Insertion of Pacemaker, Dual Chamber into Chest Subcutaneous Tissue and Fascia, Open Approach (ICD-10-PCS; 2017-05-27)
PROC: 02HK3JZ Insertion of Pacemaker Lead into Right Ventricle, Percutaneous Approach (ICD-10-PCS; 2017-05-27)
PROC: 0JPT0PZ Removal of Cardiac Rhythm Related Device from Trunk Subcutaneous Tissue and Fascia, Open Approach (ICD-10-PCS; 2017-05-27)
DX: I21.4 Non-ST elevation (NSTEMI) myocardial infarction (principal); I50.42 Chronic combined systolic (congestive) and diastolic (congestive) heart failure; L03.116 Cellulitis of left lower limb; K92.1 Melena; I47.2 Ventricular tachycardia; T82.118A Breakdown (mechanical) of other cardiac electronic device, initial encounter; I11.0 Hypertensive heart disease with heart failure; E78.2 Mixed hyperlipidemia; I48.0 Paroxysmal atrial fibrillation; I73.9 Peripheral vascular disease, unspecified; J44.9 Chronic obstructive pulmonary disease, unspecified; G47.33 Obstructive sleep apnea (adult) (pediatric); Z79.01 Long term (current) use of anticoagulants; Z79.02 Long term (current) use of antithrombotics/antiplatelets; Z79.82 Long term (current) use of aspirin; Z79.899 Other long term (current) drug therapy; Z86.711 Personal history of pulmonary embolism; Z86.718 Personal history of other venous thrombosis and embolism; Z87.891 Personal history of nicotine dependence; Z95.0 Presence of cardiac pacemaker; Z95.5 Presence of coronary angioplasty implant and graft; Z91.14 Patient's other noncompliance with medication regimen; Y83.1 Surgical operation with implant of artificial internal device as the cause of abnormal reaction of the patient, or of later complication, without mention of misadventure at the time of the procedure

== ENCOUNTER → 2017-06-06 | Outpatient (CLI) | payer OTHER ==
[~2017-06-06] MED LIST changes: +ADVIN25/60 INH; +ADVIN25050 INH; -ASPI325T45 PO; +ASPI81TA28 PO; +ATOR-26 PO; +BUSP15TA70 PO; -CARV6.252 PO; +CLOP1TAB15 PO; +CLR10 PO; +CMD25 PO; +CYCL10TA6 PO; -DIGO0.122 PO; -EFFSR75 PO; -FURO-85 PO; +IPRA1AER2 INH; -LISI-461 PO; +LNX125 PO; +LORA10CA2 PO; +LPR25 PO; +MIRT30TA2 PO; +NORT25CA PO; +OXYC-106 PO; -OXYC-57 PO; +PRMT25 PO; +SERT50TA PO; -SPIR50TA3 PO; +SPRIN INH; +SPRIN/30 INH; +VNTHFA/IN INH; +WARF4TAB43 PO; -WARF4TAB44 PO; +ZLF50 PO; +ZNT150 PO; +ZNTT/150 PO
[2017-06-06 15:17] LABS: INR 1.8 (0.9-1.1)
== END | disposition home or self-care (01) ==
LOC: C.LABSPEC 14:54
PROVIDERS: ATTEND Internal Medicine
DX: Z51.81 Encounter for therapeutic drug level monitoring (principal); I21.9 Acute myocardial infarction, unspecified; Z79.01 Long term (current) use of anticoagulants

== ENCOUNTER 2017-06-09 16:42 | Inpatient (IN) | payer OTHER ==
[~2017-06-09] VITALS: Ht 190.5 cm; Wt 106.8 kg
[~2017-06-09 16:42] MED LIST changes: -ADVIN25/60 INH; -CLR10 PO; -SERT50TA PO; -SPRIN/30 INH; -WARF4TAB43 PO; -ZNTT/150 PO
[2017-06-09] MEDS ORDERED: VNTHFA/IN INH (17:06)
[2017-06-09] MEDS ORDERED: SPRIN/30 INH (17:06)
[2017-06-09] MEDS ORDERED: WARF4TAB43 PO (17:06)
[2017-06-09] MEDS ORDERED: CLOP1TAB15 PO (17:14)
[2017-06-09] MEDS ORDERED: ATOR-26 PO (17:14)
[2017-06-09] MEDS ORDERED: LNX125 PO (17:14)
[2017-06-09] MEDS ORDERED: ASPI81TA28 PO (17:14)
[2017-06-09] MEDS ORDERED: CYCL10TA6 PO (17:14)
[2017-06-09] MEDS ORDERED: BUSP15TA70 PO (17:14)
[2017-06-09] MEDS ORDERED: ZNTT/150 PO (17:16)
[2017-06-09] MEDS ORDERED: SERT50TA PO (17:16)
[2017-06-09] MEDS ORDERED: IPRA1AER2 INH (17:16)
[2017-06-09] MEDS ORDERED: ADVIN25/60 INH (17:16)
[2017-06-09] MEDS ORDERED: PRMT25 PO (17:20)
[2017-06-09] MEDS ORDERED: CLR10 PO (17:20)
[2017-06-09] MEDS ORDERED: MIRT30TA2 PO (17:20)
[2017-06-09] MEDS ORDERED: LPR25 PO (17:20)
[2017-06-09] MEDS ORDERED: NORT25CA PO (17:20)
[2017-06-09] MEDS ORDERED: OXYC-106 PO (17:21)
[2017-06-09] MEDS ORDERED: ALBUT/IPRATROP 3MG/0.5MG NEB 3 ML VIAL INH STA (17:24)
[2017-06-09] MEDS ORDERED: METHYLPREDNISOLONE 125 MG VIAL IV STA (17:24)
[2017-06-09] MEDS ORDERED: DiphenhydrAMINE HCL 50 MG/ML VIAL IV STA (17:24)
[2017-06-09] MEDS ORDERED: OPTIRAY 320 IV PRN (17:45)
--- NOTE | 2017-06-09 17:51 | DIAGNOSTIC IMAGING REPORT ---
CHEST ONE VIEW PORTABLE HISTORY: 56 years-old Male EVALUATE RESPIRATORY DISTRESS.DYSPNEA acute respiratory distress with dyspnea COMPARISON: Chest radiograph 05/29/2017, CTA of the chest 05/22/2017 TECHNIQUE: Portable AP view of the chest FINDINGS: Moderate cardiomegaly is unchanged. Left pectoral pacer/AICD appears stable. No pneumothorax or large pleural effusion. Chronic left hemidiaphragmatic elevation with left basilar atelectasis/scarring appears unchanged. No overt pulmonary edema. No lobar airspace consolidation. Bones of the chest appear grossly intact. Remote right-sided rib fractures redemonstrated. IMPRESSION: 1. Cardiomegaly without overt pulmonary edema. 2. Chronic left hemidiaphragmatic elevation with left basilar atelectasis/scarring. The above report was generated using voice recognition software. It may contain grammatical, syntax or spelling errors. Electronically signed by: Keaton Schuler M.D. 06/09/2017 5:49 PM Dictated Date/Time: 06/09/2017 5:46 PM
[2017-06-09 18:06] LABS: BASO % 0.5 %; BASO ABS # 0.02 K/uL (0-0.2); EOS % 0.3 %; EOS ABS # 0.01 K/uL (0-0.5); HEMATOCRIT 34.1 % (42-52); HEMOGLOBIN 10.5 g/dL (14.0-18.0); IG# 0.02 K/uL (0.00-0.02); LYMPH % 21.4 %; MEAN CORPUSCULAR HEMOGLOBIN 25.9 pg (25-34); MEAN CORPUSCULAR HGB CONC 30.8 g/dl (32-36); MEAN PLATELET VOLUME 10.3 fL (7.4-10.4); MONO % 23.6 %; MONO ABS # 0.88 K/uL (0.11-0.59); NEUT % 53.7 %; PLATELET COUNT 175 K/uL (130-400); RED CELL DISTRIBUTION WIDTH CV 17.7 % (11.5-14.5); RED CELL DISTRIBUTION WIDTH SD 54.7 fL (36.4-46.3); WHITE BLOOD COUNT 3.73 K/uL (4.8-10.8)
--- NOTE | 2017-06-09 18:08 | EMERGENCY ROOM VISIT NOTE ---
History First contact with patient: 17:08 Chief Complaint: HYPOTENSION Stated Complaint: SOB, CANT STAND/WALK, LOW BP History of Present Illness The patient is a 56 year old male who presents to the Emergency Room with complaints of SOB, dizziness, near syncope, and severe weakness that started this morning. He has also had a cough since last night, but is not bringing anything up. He has had some chills but no fevers, and states he feels dehydrated with a dry mouth and has not been able to drink much today. 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 Patient reports that he was recently admitted to the hospital for replacement of his pacemaker and AICD which he has had for many years due to cardiomyopathy. He states his EF is approximately 20%. He was discharged 5 days ago. He does note that he had stopped his Coumadin for the procedure. 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 He denies any new leg pain or swelling. He denies any chest pain, headache, vision changes, neck pain or stiffness, abdominal pain, nausea or vomiting, diarrhea, bloody or black stools, dysuria or urinary frequency, or rash. He does note chronic low back pain from fractures in his spine, he states he takes Percocet for this. Review of Systems A complete 10 point review of systems was reviewed with the patient with pertinent positives and negatives as per history of present illness. All else were negative. Past Medical/Surgical History Medical Problems: (1) Atrial Fibrillation (2) Chronic Diastolic Hrt Failure (3) Coronary Atherosclerosis Of [place] Coronary Vessel (4) Hypertension Nos (5) Hypotension (6) Influenza A (7) Mixed Hyperlipidemia (8) NSTEMI (non-ST elevated myocardial infarction) (9) Pre-syncope Family History Patient reports no known family medical history. Social History Smoking Status: Former Smoker Alcohol Use: none Drug Use: heroin Marital Status: single Occupation Status: disabled Current/Historical Medications Scheduled Aspirin (Aspirin Ec), 81 MG PO QAM Atorvastatin (Lipitor), 80 MG PO HS Buspirone Hcl (Buspar), 15 MG PO TID Clopidogrel (Plavix), 75 MG PO QAM Cyclobenzaprine Hcl (Flexeril), 10 MG PO BID Digoxin (Digoxin), 0.125 MG PO QAM Fluticasone Prop/Salmeterol (Advair Diskus 250/50 60 Dose), 1 PUFF INH BID Ipratropium-Albuterol (Combivent Respimat), 1 PUFF INH QID Loratadine (Claritin), 10 MG PO DAILY Metoprolol Tartrate (Lopressor), 25 MG PO BID Midodrine (Midodrine HCl), 5 MG PO TID Mirtazapine Soltab (Remeron Soltab), 60 MG PO HS Nortriptyline (Pamelor), 25 MG PO HS Ranitidine (Zantac), 150 MG PO BID Sertraline (Zoloft), 25 MG PO HS Tiotropium [place] (Spiriva Handihaler), 1 CAP INH QAM Warfarin Sodium (Warfarin Sodium), 2.5 MG PO QD@16 Scheduled PRN Albuterol Hfa (Ventolin Hfa), 2 PUFFS INH Q6H PRN for Shortness of Breath Oxycodone/Acetaminophen 10MG/325MG (Percocet 10MG/325MG), 1 TAB PO TID PRN for Pain Allergies Review of chart Physical Exam Vital Signs Date Time Temp Pulse Resp B/P (MAP) Pulse Ox O2 Delivery O2 Flow Rate FiO2 06/09/17 21:08 98 06/09/17 21:05 101 17 06/09/17 20:35 103 20 06/09/17 20:30 102 26 98 Room Air 06/09/17 20:00 106 20 06/09/17 19:30 108 18 06/09/17 19:00 103 22 114/79 06/09/17 18:40 108 22 102/76 97 Room Air 06/09/17 17:34 97 Room Air 06/09/17 17:34 97 Room Air 06/09/17 17:32 102 20 109/71 97 Room Air 06/09/17 17:08 106 06/09/17 16:51 37.1 101 26 108/83 97 Room Air Physical Exam CONSTITUTIONAL: Pleasant and cooperative. No acute distress, but appears anxious and is mildly tachypneic with labored breathing. He is able to speak in full sentences without difficulty. He appears moderately dehydrated. HEENT: Normocephalic, atraumatic. Pupils equal, round and reactive to light, EOMI. TMs normal. Pharynx normal. Dry mucous membranes. NECK: Supple, full active range of motion without discomfort. No cervical adenopathy. RESPIRATORY: Diminished throughout to auscultation bilaterally with scant expiratory wheezing, no crackles, rhonchi or stridor. Equal expansion bilaterally. CARDIOVASCULAR: Quiet heart sounds. Regular rate and rhythm with systolic murmur, no rubs or gallops. Normal peripheral perfusion. No edema. GASTROINTESTINAL: Soft, nontender, nondistended. No palpable masses or HSM. Bowel sounds present in all quadrants. MUSCULOSKELETAL: Full range of motion of all joints without discomfort. INTEGUMENTARY: No rash or other significant dermatologic conditions noted. NEUROLOGIC: Alert and oriented X 4 with normal affect. Cranial nerves II-XII grossly intact. No focal neurologic deficits noted. Normal strength and sensation in all 4 extremities. Normal speech. Medical Decision & Procedures ER Provider Diagnostic Interpretation: CHEST ONE VIEW PORTABLE HISTORY: 56 years-old Male EVALUATE RESPIRATORY DISTRESS.DYSPNEA acute respiratory distress with dyspnea COMPARISON: Chest radiograph 05/29/2017, CTA of the chest 05/22/2017 TECHNIQUE: Portable AP view of the chest FINDINGS: Moderate cardiomegaly is unchanged. Left pectoral pacer/AICD appears stable. No pneumothorax or large pleural effusion. Chronic left hemidiaphragmatic elevation with left basilar atelectasis/scarring appears unchanged. No overt pulmonary edema. No lobar airspace consolidation. Bones of the chest appear grossly intact. Remote right-sided rib fractures redemonstrated. IMPRESSION: 1. Cardiomegaly without overt pulmonary edema. 2. Chronic left hemidiaphragmatic elevation with left basilar atelectasis/scarring. ----- (CHEST FOR PE) ANGIO WITH CT DOSE: 735.35 mGy.cm HISTORY: Chest pain dyspnea TECHNIQUE: Multiaxial CT images of the chest were performed following the intravenous administration of contrast to evaluate the pulmonary arteries. Maximal intensity projection images were also obtained. A dose lowering technique was utilized adhering to the principles of ALARA. COMPARISON STUDY: None. FINDINGS: Mild cardiomegaly. Thoracic aorta is unremarkable in course and caliber. Pulmonary vasculature enhances appropriately. No significant filling defects. Mild parenchymal infiltrative process left lower lobe. Minimal atelectasis right base. IMPRESSION: 1. Study is negative for pulmonary embolus. 2. Mild stable cardiomegaly. 3. Mild parenchymal infiltrate left base. 4. Mild atelectasis right base. Laboratory Results 06/09/17 17:50 Red Blood Count 4.06, Mean Corpuscular Volume 84.0, Mean Corpuscular Hemoglobin 25.9, Mean Corpuscular Hemoglobin Concent 30.8, Mean Platelet Volume 10.3, Neutrophils (%) (Auto) 53.7, Lymphocytes (%) (Auto) 21.4, Monocytes (%) (Auto) 23.6, Eosinophils (%) (Auto) 0.3, Basophils (%) (Auto) 0.5, Neutrophils # (Auto ) 2.00, Lymphocytes # (Auto) 0.80, Monocytes # (Auto) 0.88, Eosinophils # (Auto ) 0.01, Basophils # (Auto) 0.02 06/09/17 17:50 Test 06/09/17 17:40 06/09/17 17:50 06/09/17 18:32 Influenza Type A Antigen POS for Influ A (NEG) Influenza Type B Antigen Neg for Influ B (NEG) White Blood Count 3.73 K/uL (4.8-10.8) Red Blood Count 4.06 M/uL (4.7-6.1) Hemoglobin 10.5 g/dL (14.0-18.0) Hematocrit 34.1 % (42-52) Mean Corpuscular Volume 84.0 fL (80-100) Mean Corpuscular Hemoglobin 25.9 pg (25-34) Mean Corpuscular Hemoglobin Concent 30.8 g/dl (32-36) Platelet Count 175 K/uL (130-400) Mean Platelet Volume 10.3 fL (7.4-10.4) Neutrophils (%) (Auto) 53.7 % Lymphocytes (%) (Auto) 21.4 % Monocytes (%) (Auto) 23.6 % Eosinophils (%) (Auto) 0.3 % Basophils (%) (Auto) 0.5 % Neutrophils # (Auto) 2.00 K/uL (1.4-6.5) Lymphocytes # (Auto) 0.80 K/uL (1.2-3.4) Monocytes # (Auto) 0.88 K/uL (0.11-0.59) Eosinophils # (Auto) 0.01 K/uL (0-0.5) Basophils # (Auto) 0.02 K/uL (0-0.2) RDW Standard Deviation 54.7 fL (36.4-46.3) RDW Coefficient of Variation 17.7 % (11.5-14.5) Immature Granulocyte % (Auto) 0.5 % Immature Granulocyte # (Auto) 0.02 K/uL (0.00-0.02) Anion Gap 6.0 mmol/L (3-11) Est Creatinine Clear Calc Drug Dose 85.9 ml/min Estimated GFR () 74.5 Estimated GFR (Non- 64.3 BUN/Creatinine Ratio 10.9 (10-20) Calcium Level 8.5 mg/dl (8.5-10.1) Total Bilirubin 0.3 mg/dl (0.2-1) Aspartate Amino Transf (AST/SGOT) 18 U/L (15-37) Alanine Aminotransferase (ALT/SGPT) 18 U/L (12-78) Alkaline Phosphatase 68 U/L (45-117) Troponin I < 0.015 ng/ml (0-0.045) Total Protein 7.7 gm/dl (6.4-8.2) Albumin 3.6 gm/dl (3.4-5.0) Globulin 4.1 gm/dl (2.5-4.0) Albumin/Globulin Ratio 0.9 (0.9-2) Prothrombin Time 49.8 SECONDS (9.0-12.0) Prothromb Time International Ratio 4.9 (0.9-1.1) Activated Partial Thromboplast Time 55.9 SECONDS (21.0-31.0) Partial Thromboplastin Ratio 2.2 Medications Administered Medications (Trade) Dose Ordered Sig/Mariama Route Start Time Stop Time Status Last Admin Dose Admin Diphenhydramine HCl (Benadryl Inj) 50 mg NOW STAT IV 06/09/17 17:24 06/09/17 17:32 DC 06/09/17 17:48 50 MG Methylprednisolone Sodium Succinate (Solu-Medrol IV) 125 mg NOW STAT IV 06/09/17 17:24 06/09/17 17:32 DC 06/09/17 17:48 125 MG Albuterol/ Ipratropium (Duoneb) 3 ml NOW STAT INH 06/09/17 17:24 06/09/17 17:32 DC 06/09/17 17:48 3 ML Sodium Chloride 500 ml @ 999 mls/hr Q31M STAT IV 06/09/17 18:17 06/09/17 18:47 DC 06/09/17 18:17 999 MLS/HR Oseltamivir Phosphate (Tamiflu Cap) 75 mg NOW STAT PO 06/09/17 19:01 06/09/17 19:03 DC 06/09/17 19:06 75 MG Oxycodone/ Acetaminophen (Percocet 5-325mg Tab) 1 tab NOW ONCE PO 06/09/17 19:15 06/09/17 19:16 DC 06/09/17 19:06 1 TAB Medical Decision CC: Patient presenting with complaint of short of breath, near syncope, generalized weakness Interpretation of Labs: Leukopenia, anemia (baseline for patient), mild hyponatremia, normal renal function, normal liver enzymes. Negative troponin. Supratherapeutic INR. Influenza A is POSITIVE. Differential Diagnosis: Includes, but not limited to PE, ACS, CHF, COPD, influenza, bronchitis, pneumonia, dehydration, electrolyte abnormality, anemia, among others. Medication Reconciliation: I attest that I have personally reviewed the patient' s current medication list. Initial vital signs review: I reviewed the patient's vital signs and interpret them as follows: T: Afebrile; BP: Normotensive; HR: Tachycardic; RR: Tachypneic; Pulse Ox: Within normal limits on room air. Blood pressure screening: The patient was found to have normal blood pressure on screening and does not require follow-up for repeat blood pressure check. Summary: Patient was evaluated at bedside, history and physical exam performed. Patient is alert and oriented, no acute distress, but seems anxious. He is tachypneic with labored breathing, but is able to speak in full sentences. Lungs are diminished throughout with scant expiratory wheezes. He appears dehydrated on exam, tachycardic. No crackles heard on lung exam and no extremity edema appreciated. EKG reviewed at bedside, shows sinus tachycardia with occasional PVCs and left axis deviation, no acute changes by my interpretation. My review of the patient's chart notes a subtherapeutic INR 3 days ago. Orders were placed at bedside for labs, influenza testing, 500 mL IV fluid bolus for cautious hydration, chest x-ray, CT chest to evaluate for PE. Patient discussed with Dr. Carreno, who agrees with my assessment and plan. Labs reviewed as above, positive for Influenza A. No other significant abnormalities. EKG reviewed by me and shows sinus tachycardia with occasional PVCs and left axis deviation, Q-waves in inferior leads, by my interpretation. No acute ischemic changes when compared to previous EKGs. Patient reassessed multiple times throughout ED stay, he continues to complaint of feeling lightheaded at times and remains short of breath. I discussed with Dr. Carreno, given his significant medical history and persistent symptoms as well as near syncope multiple times today with hypotension, I feel the patient would benefit from a hospital admission. I spoke with the hospitalist team, who agreed to evaluate the patient for admission. The patient was stable at time of admission. Medication Reconcilliation Current Medication List: was personally reviewed by me Blood Pressure Screening Patient's blood pressure: Low blood pressure Impression Primary Impression: Influenza A Additional Impression: Elevated INR Departure Information Dispostion Admitted as an inpatient Condition FAIR Referrals Jocelyn Turner CRNP (PCP) Patient Instructions My [facility] Problem Qualifiers
--- NOTE | 2017-06-09 18:13 | EMERGENCY ROOM VISIT NOTE ---
ED Visit Note First contact with patient: 17:08 I have seen and examined this patient with Augusta Blevins and generally agree with the treatment plan as discussed. Problem List Medical Problems: (1) Atrial Fibrillation Status: Chronic (2) Chronic Diastolic Hrt Failure Status: Chronic (3) Coronary Atherosclerosis Of [place] Coronary Vessel Status: Chronic (4) Hypertension Nos Status: Chronic (5) Mixed Hyperlipidemia Status: Chronic Current/Historical Medications Scheduled Aspirin (Aspirin Ec), 81 MG PO QAM Atorvastatin (Lipitor), 80 MG PO HS Buspirone Hcl (Buspar), 15 MG PO TID Clopidogrel (Plavix), 75 MG PO QAM Cyclobenzaprine Hcl (Flexeril), 10 MG PO BID Digoxin (Digoxin), 0.125 MG PO QAM Fluticasone Prop/Salmeterol (Advair Diskus 250/50 60 Dose), 1 PUFF INH BID Ipratropium-Albuterol (Combivent Respimat), 1 PUFF INH QID Loratadine (Claritin), 10 MG PO DAILY Metoprolol Tartrate (Lopressor), 25 MG PO BID Midodrine (Midodrine HCl), 5 MG PO TID Mirtazapine Soltab (Remeron Soltab), 60 MG PO HS Nortriptyline (Pamelor), 25 MG PO HS Ranitidine (Zantac), 150 MG PO BID Sertraline (Zoloft), 25 MG PO HS Tiotropium [place] (Spiriva Handihaler), 1 CAP INH QAM Warfarin Sodium (Warfarin Sodium), 2.5 MG PO QD@16 Scheduled PRN Albuterol Hfa (Ventolin Hfa), 2 PUFFS INH Q6H PRN for Shortness of Breath Oxycodone/Acetaminophen 10MG/325MG (Percocet 10MG/325MG), 1 TAB PO TID PRN for Pain Allergies Coded Allergies: Heparin (Unverified Allergy, Severe, Swells up., 05/22/17) Reported by PT, swells up from Heparin injections. Iodinated Diagnostic Agents (Verified Allergy, Intermediate, swelling, hives, 05/22/17) Ibuprofen (Verified Adverse Reaction, Mild, nausea vomiting, 05/22/17) Vital Signs Date Time Temp Pulse Resp B/P (MAP) Pulse Ox O2 Delivery O2 Flow Rate FiO2 06/09/17 17:34 97 Room Air 06/09/17 17:34 97 Room Air 06/09/17 17:32 102 20 109/71 97 Room Air 06/09/17 17:08 106 06/09/17 16:51 37.1 101 26 108/83 97 Room Air Laboratory Results 06/09/17 17:50 Red Blood Count 4.06, Mean Corpuscular Volume 84.0, Mean Corpuscular Hemoglobin 25.9, Mean Corpuscular Hemoglobin Concent 30.8, Mean Platelet Volume 10.3, Neutrophils (%) (Auto) 53.7, Lymphocytes (%) (Auto) 21.4, Monocytes (%) (Auto) 23.6, Eosinophils (%) (Auto) 0.3, Basophils (%) (Auto) 0.5, Neutrophils # (Auto ) 2.00, Lymphocytes # (Auto) 0.80, Monocytes # (Auto) 0.88, Eosinophils # (Auto ) 0.01, Basophils # (Auto) 0.02 Test 06/09/17 17:24 06/09/17 17:40 06/09/17 17:50 White Blood Count 3.73 K/uL (4.8-10.8) Red Blood Count 4.06 M/uL (4.7-6.1) Hemoglobin 10.5 g/dL (14.0-18.0) Hematocrit 34.1 % (42-52) Mean Corpuscular Volume 84.0 fL (80-100) Mean Corpuscular Hemoglobin 25.9 pg (25-34) Mean Corpuscular Hemoglobin Concent 30.8 g/dl (32-36) Platelet Count 175 K/uL (130-400) Mean Platelet Volume 10.3 fL (7.4-10.4) Neutrophils (%) (Auto) 53.7 % Lymphocytes (%) (Auto) 21.4 % Monocytes (%) (Auto) 23.6 % Eosinophils (%) (Auto) 0.3 % Basophils (%) (Auto) 0.5 % Neutrophils # (Auto) 2.00 K/uL (1.4-6.5) Lymphocytes # (Auto) 0.80 K/uL (1.2-3.4) Monocytes # (Auto) 0.88 K/uL (0.11-0.59) Eosinophils # (Auto) 0.01 K/uL (0-0.5) Basophils # (Auto) 0.02 K/uL (0-0.2) RDW Standard Deviation 54.7 fL (36.4-46.3) RDW Coefficient of Variation 17.7 % (11.5-14.5) Immature Granulocyte % (Auto) 0.5 % Immature Granulocyte # (Auto) 0.02 K/uL (0.00-0.02) Medications Administered Medications (Trade) Dose Ordered Sig/Mariama Route Start Time Stop Time Status Last Admin Dose Admin Diphenhydramine HCl (Benadryl Inj) 50 mg NOW STAT IV 06/09/17 17:24 06/09/17 17:32 DC 06/09/17 17:48 50 MG Methylprednisolone Sodium Succinate (Solu-Medrol IV) 125 mg NOW STAT IV 06/09/17 17:24 06/09/17 17:32 DC 06/09/17 17:48 125 MG Albuterol/ Ipratropium (Duoneb) 3 ml NOW STAT INH 06/09/17 17:24 06/09/17 17:32 DC 06/09/17 17:48 3 ML Departure Information Referrals Jocelyn Turner CRNP (PCP) Patient Instructions My [facility]
[2017-06-09] MEDS ORDERED: SODIUM CHLORIDE 0.9% 500ML 500 ML IV STA (18:17)
[2017-06-09 18:19] LABS: ALBUMIN 3.6 gm/dl (3.4-5.0); ALT/SGPT 18 U/L (12-78); AST/SGOT 18 U/L (15-37); BLOOD UREA NITROGEN 13 mg/dl (7-18); CALCIUM 8.5 mg/dl (8.5-10.1); CARBON DIOXIDE 24 mmol/L (21-32); CREATININE 1.23 mg/dl (0.60-1.40); GLUCOSE 92 mg/dl (70-99); POTASSIUM 4.2 mmol/L (3.5-5.1); SODIUM 131 mmol/L (136-145)
[2017-06-09 18:23] LABS: INFLUENZA B ANTIGEN Neg for Influ B (NEG)
[2017-06-09 18:24] LABS: ALKALINE PHOSPHATASE 68 U/L (45-117); TOTAL PROTEIN 7.7 gm/dl (6.4-8.2)
[2017-06-09 18:59] LABS: INR 4.9 (0.9-1.1)
[2017-06-09 19:01] LABS: PTT PATIENT 55.9 SECONDS (21.0-31.0)
[2017-06-09] MEDS ORDERED: OSELTAMIVIR PHOSPHATE 75 MG CAP PO STA (19:01)
--- NOTE | 2017-06-09 19:02 | DIAGNOSTIC IMAGING REPORT ---
(CHEST FOR PE) ANGIO WITH CT DOSE: 735.35 mGy.cm HISTORY: Chest pain dyspnea TECHNIQUE: Multiaxial CT images of the chest were performed following the intravenous administration of contrast to evaluate the pulmonary arteries. Maximal intensity projection images were also obtained. A dose lowering technique was utilized adhering to the principles of ALARA. COMPARISON STUDY: None. FINDINGS: Mild cardiomegaly. Thoracic aorta is unremarkable in course and caliber. Pulmonary vasculature enhances appropriately. No significant filling defects. Mild parenchymal infiltrative process left lower lobe. Minimal atelectasis right base. IMPRESSION: 1. Study is negative for pulmonary embolus. 2. Mild stable cardiomegaly. 3. Mild parenchymal infiltrate left base. 4. Mild atelectasis right base. The above report was generated using voice recognition software. It may contain grammatical, syntax or spelling errors. Electronically signed by: Yaron Lott M.D. 06/09/2017 7:00 PM Dictated Date/Time: 06/09/2017 6:58 PM
[2017-06-09] MEDS ORDERED: OXYCODONE/ACETAMINOPHEN 5-325 TAB PO ONE (19:15)
[2017-06-09] MEDS ORDERED: ONDANSETRON INJ 2 MG/ML 2 ML VIAL IV PRN (21:15)
[2017-06-09] MEDS ORDERED: NITROGLYCERIN 0.4 MG SL PER TAB CHARGE SL PRN (21:15)
[2017-06-09] MEDS ORDERED: ACETAMINOPHEN 325 MG TAB PO PRN (21:15)
[2017-06-09] MEDS ORDERED: ALUMINUM/MAGNESIUM/SIMETH (MAALOX MAX) 30 ML UDC PO PRN (21:15)
[2017-06-09 22:00] VITALS: BP 109/77; PULSE 113; TEMP 37; O2SAT 94; Ht 190.5 cm; Wt 106.8 kg
[2017-06-09] MEDS ORDERED: IV FLUIDS COMPLETED PRN (23:30)
[2017-06-09 23:35] VITALS: BP 109/72; PULSE 97; TEMP 37.1; O2SAT 93
--- NOTE | 2017-06-09 23:36 | History and Physical ---
History & Physical Date & Time of Service: Jun 09, 2017 at 23:36 Chief Complaint: Hypotension, Influenza A, Pre-Syncope Primary Care Physician: Jocelyn Turner CRNP History of Present Illness Source: patient This is a 56 yo m with a h/o NSTEMI resulting in systolic CHF, PAF, HTN, hyperlipidemia, Anxiety that is presenting to us with hypotension/ presyncopal earlier today. The patient states that for the past few days he has had "cold like symptoms" and general weakness/ SOB on exertion. He went to his cardiologists today where he had an episode of hypotension/ presyncope and he was recommended to come to the ED for evaluation. He was found to have influenza A. He was also given a 500cc NSS bolus for dehydration/ hyponatremia. The patient states that he currently feels very weak/ achy. He however denies any chest pain. He recently (2 weeks prior) had a ACID placed for his cardiomyopathy. Xarelto was held for a short time for this procedure and placed but found to be supratherapeutic today. 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 Past Medical/Surgical History NSTEMI CHF - systolic EF < 30% HTN Hyperlipidemia anxiety CAD, stents x 2 04/16/17 PAD with bilat common iliac arterial aneurysms s/p below the knee bypass COPD Family History Patient reports no known family medical history. Social History Smoking Status: Former Smoker Smokeless Tobacco Use: No Alcohol Use: none Drug Use: heroin Marital Status: single Occupational Status: disabled Immunizations History of Influenza Vaccine: Unknown History of Tetanus Vaccine?: Unknown History of Pneumococcal: Unknown History of Hepatitis B Vaccine: Unknown Multi-Drug Resistant Organisms History of MDRO: No Allergies Coded Allergies: Heparin (Unverified Allergy, Severe, Swells up., 05/22/17) Reported by PT, swells up from Heparin injections. Iodinated Diagnostic Agents (Verified Allergy, Intermediate, swelling, hives, 05/22/17) Ibuprofen (Verified Adverse Reaction, Mild, nausea vomiting, 05/22/17) Home Medications Scheduled Aspirin (Aspirin Ec), 81 MG PO QAM Atorvastatin (Lipitor), 80 MG PO HS Buspirone Hcl (Buspar), 15 MG PO TID Clopidogrel (Plavix), 75 MG PO QAM Cyclobenzaprine Hcl (Flexeril), 10 MG PO BID Digoxin (Digoxin), 0.125 MG PO QAM Fluticasone Prop/Salmeterol (Advair Diskus 250/50 60 Dose), 1 PUFF INH BID Ipratropium-Albuterol (Combivent Respimat), 1 PUFF INH QID Loratadine (Claritin), 10 MG PO DAILY Metoprolol Tartrate (Lopressor), 25 MG PO BID Midodrine (Midodrine HCl), 5 MG PO TID Mirtazapine Soltab (Remeron Soltab), 60 MG PO HS Nortriptyline (Pamelor), 25 MG PO HS Ranitidine (Zantac), 150 MG PO BID Sertraline (Zoloft), 25 MG PO HS Tiotropium Ethel (Spiriva Handihaler), 1 CAP INH QAM Warfarin Sodium (Warfarin Sodium), 2.5 MG PO QD@16 Scheduled PRN Albuterol Hfa (Ventolin Hfa), 2 PUFFS INH Q6H PRN for Shortness of Breath Oxycodone/Acetaminophen 10MG/325MG (Percocet 10MG/325MG), 1 TAB PO TID PRN for Pain Physical Exam Vital Signs Date Time Temp Pulse Resp B/P (MAP) Pulse Ox O2 Delivery O2 Flow Rate FiO2 06/09/17 22:00 37.0 113 22 109/77 94 Partial Rebreather 2.0 06/09/17 21:49 101 18 98 06/09/17 21:35 101 15 06/09/17 21:21 98/77 96 Room Air 06/09/17 21:20 06/09/17 21:08 98 06/09/17 21:05 101 17 06/09/17 20:35 103 20 06/09/17 20:30 102 26 98 Room Air 06/09/17 20:00 106 20 06/09/17 19:30 108 18 06/09/17 19:00 103 22 114/79 06/09/17 18:40 108 22 102/76 97 Room Air 06/09/17 17:34 97 Room Air 06/09/17 17:34 97 Room Air 06/09/17 17:32 102 20 109/71 97 Room Air 06/09/17 17:08 106 06/09/17 16:51 37.1 101 26 108/83 97 Room Air General Appearance: no apparent distress Head: normocephalic, atraumatic Eyes: normal inspection ENT: normal ENT inspection Neck: supple Respiratory/Chest: normal breath sounds, no respiratory distress, no accessory muscle use, + decreased breath sounds (bilat bases) Cardiovascular: no murmur, normal peripheral pulses, + tachycardia Abdomen/GI: normal bowel sounds, non tender, soft Back: normal inspection, no CVA tenderness, normal range of motion Extremities/Musculoskelatal: normal inspection, no calf tenderness, no pedal edema Neurologic/Psych: alert, normal mood/affect, oriented x 3 Skin: normal color, warm/dry, no rash Lymphatic: no adenopathy Diagnostics Laboratory Results Results Past 24 Hours Test 06/09/17 17:40 06/09/17 17:50 06/09/17 18:32 Range/Units Influenza Type A Antigen POS for Influ A NEG Influenza Type B Antigen Neg for Influ B NEG White Blood Count 3.73 4.8-10.8 K/uL Red Blood Count 4.06 4.7-6.1 M/uL Hemoglobin 10.5 14.0-18.0 g/dL Hematocrit 34.1 42-52 % Mean Corpuscular Volume 84.0 80-100 fL Mean Corpuscular Hemoglobin 25.9 25-34 pg Mean Corpuscular Hemoglobin Concent 30.8 32-36 g/dl Platelet Count 175 130-400 K/uL Mean Platelet Volume 10.3 7.4-10.4 fL Neutrophils (%) (Auto) 53.7 % Lymphocytes (%) (Auto) 21.4 % Monocytes (%) (Auto) 23.6 % Eosinophils (%) (Auto) 0.3 % Basophils (%) (Auto) 0.5 % Neutrophils # (Auto) 2.00 1.4-6.5 K/uL Lymphocytes # (Auto) 0.80 1.2-3.4 K/uL Monocytes # (Auto) 0.88 0.11-0.59 K/uL Eosinophils # (Auto) 0.01 0-0.5 K/uL Basophils # (Auto) 0.02 0-0.2 K/uL RDW Standard Deviation 54.7 36.4-46.3 fL RDW Coefficient of Variation 17.7 11.5-14.5 % Immature Granulocyte % (Auto) 0.5 % Immature Granulocyte # (Auto) 0.02 0.00-0.02 K/uL Sodium Level 131 136-145 mmol/L Potassium Level 4.2 3.5-5.1 mmol/L Chloride Level 101 98-107 mmol/L Carbon Dioxide Level 24 21-32 mmol/L Anion Gap 6.0 3-11 mmol/L Blood Urea Nitrogen 13 7-18 mg/dl Creatinine 1.23 0.60-1.40 mg/dl Est Creatinine Clear Calc Drug Dose 85.9 ml/min Estimated GFR () 74.5 Estimated GFR (Non- 64.3 BUN/Creatinine Ratio 10.9 10-20 Random Glucose 92 70-99 mg/dl Calcium Level 8.5 8.5-10.1 mg/dl Total Bilirubin 0.3 0.2-1 mg/dl Aspartate Amino Transf (AST/SGOT) 18 15-37 U/L Alanine Aminotransferase (ALT/SGPT) 18 12-78 U/L Alkaline Phosphatase 68 45-117 U/L Troponin I < 0.015 0-0.045 ng/ml Total Protein 7.7 6.4-8.2 gm/dl Albumin 3.6 3.4-5.0 gm/dl Globulin 4.1 2.5-4.0 gm/dl Albumin/Globulin Ratio 0.9 0.9-2 Prothrombin Time 49.8 9.0-12.0 SECONDS Prothromb Time International Ratio 4.9 0.9-1.1 Activated Partial Thromboplast Time 55.9 21.0-31.0 SECONDS Partial Thromboplastin Ratio 2.2 Diagnostic Radiology CHEST ONE VIEW PORTABLE HISTORY: 56 years-old Male EVALUATE RESPIRATORY DISTRESS.DYSPNEA acute respiratory distress with dyspnea COMPARISON: Chest radiograph 05/29/2017, CTA of the chest 05/22/2017 TECHNIQUE: Portable AP view of the chest FINDINGS: Moderate cardiomegaly is unchanged. Left pectoral pacer/AICD appears stable. No pneumothorax or large pleural effusion. Chronic left hemidiaphragmatic elevation with left basilar atelectasis/scarring appears unchanged. No overt pulmonary edema. No lobar airspace consolidation. Bones of the chest appear grossly intact. Remote right-sided rib fractures redemonstrated. IMPRESSION: 1. Cardiomegaly without overt pulmonary edema. 2. Chronic left hemidiaphragmatic elevation with left basilar atelectasis/scarring. EKG HR 106, no significant changes, no ectopy, no ischemic changes Impression Assessment and Plan This is a 56 yo m with a recent episode of symptomatic hypotension in the presence of severe cardiomyopathy and influenza A/ possible PNA Hypotension/ presyncope secondary to influenza vs vascular vs ischemia - tele obs - troponin trend - echo in am/ carotid dopplers - consult CVS - orthostatic vitals - ekg in am Infiltrate in lung, possible PNA/ Influenza A - contact precautions - Levaquin 750 mg daily - incentive spirometry - tamiflu Hyponatremia, iatrogenic vs secondary to infection/ dehydration - Recheck in am - received 500cc bolus in ED Supratherapeutic INR, h/o DVT/PE/PAF - recheck level in am - will hold ASA in am until recheck completed - assess for S&S of bleeding - warfarin 2.5 mg held Stable systolic CHF(ACID in place)/ CAD/ NSTEMI / HTN - continue plavix 75 mg daily ( recent stent) - continue digoxin 0.125 mg daily, Toprol 25 mg bid, midodrine 2.5 mg tid Hyperlipidemia - Continue lipitor 80 mg daily Anxiety - continue buspar 15 mg tid, pamelor 25 mg HS, Remeron 60 mg HS and Zoloft 35 mg HS COPD stable - Combivent prn - continue Advair and Spiriva DVT prophylaxis Supratherapeutic INR, Warfarin held, SCD FULL CODE Attending addendum: I have physically seen this patient, have supervised the medical residents activities, and agree with the H&P unless as otherwise noted. Assessment and Plan: Hypotension/presyncope/influenza A/left lower lobe pneumonia-- The patient will be admitted to telemetry for serial cardiac enzymes, serial EKG's, cardiac rhythm monitoring , a 2-D echocardiogram with Dopplers and carotid dopplers. Tamiflu Levaquin 750 mg IV daily Duonebs every 4 hours while awake and every 2 hours when necessary. CAD/hypertension/NSTEMI/paroxysmal atrial fibrillation-- Continue metoprolol succinate 25 mg by mouth twice a day, digoxin 0.125 mg by mouth daily, Plavix 75 mg by mouth daily, midodrine 2.5 mg by mouth 3 times a day. Hold warfarin. INR 4.9 DVT/PE/paroxysmal atrial fibrillation-- Hold warfarin and resume when INR less than 2.5 Level of Care Telemetry Advanced Directives Existing Advance Directive: No Existing Living Will: No Existing Power of Parts Delivery Driver: No Resuscitation Status FULL RESUSCITATION VTE Prophylaxis VTE Risk Assessment Done? Y/N: Yes Risk Level: Moderate Given or contraindicated: SCD's Social Service Consult None Apply Note Total Time: Critical Care 30 - 74 minutes Additional Copies To Jocelyn Turner CRNP
[2017-06-09] MEDS ORDERED: ALBUTEROL HFA 8 GM INHALER INH PRN (23:45)
[2017-06-09] MEDS ORDERED: IPRATROPIUM BROMIDE/ALBUTEROL respimat INH INH PRN (23:45)
[2017-06-10] VITALS (9 sets, daily range): BP systolic 92–118; BP diastolic 63–80; PULSE 88–96; TEMP 36.5–37; O2SAT 91–94
[2017-06-10] MEDS: OXYCODONE/ACETAMINOPHEN 10/325MG TAB PO PRN ×3 (03:39→20:56)
[2017-06-10] MEDS: LEVOFLOXACIN / D5W 750 MG in PREMIXED IN D5W 150 ML IV SCH (03:39)
--- NOTE | 2017-06-10 08:10 | DIAGNOSTIC IMAGING REPORT ---
ULTRASOUND OF THE CAROTID ARTERIES CLINICAL HISTORY: Presyncope. COMPARISON STUDY: No priors. TECHNIQUE: Real-time, grayscale, and color Doppler sonography of the carotid arteries is performed. Images are reviewed in the transverse and longitudinal planes. FINDINGS: Blood pressures were not assessed due to the presence of IV catheters. The carotid arteries are patent bilaterally and demonstrate antegrade flow. There is mild atherosclerotic plaque seen in the carotid bulbs. Normal doppler arterial waveforms are seen throughout. Velocity measurements are listed below. Common carotid peak systolic velocity (cm/sec): RIGHT: 43 LEFT: 50 ICA proximal peak systolic velocity (cm/sec): RIGHT: 41 LEFT: 30 ICA mid peak systolic velocity (cm/sec): RIGHT: 52 LEFT: 47 ICA distal peak systolic velocity (cm/sec): RIGHT: 59 LEFT: 57 ICA/CC peak systolic ratio: RIGHT: 1.4 LEFT: 1.1 Antegrade flow was shown in the vertebral arteries. The external carotid arteries are patent. IMPRESSION: 1. There is no sonographic evidence of hemodynamically significant stenosis in the right or left carotid arterial system. 2. Antegrade flow is shown in the vertebral arteries. Electronically signed by: Jacky Zhou M.D. 06/10/2017 8:09 AM Dictated Date/Time: 06/10/2017 8:08 AM
[2017-06-10] MEDS: FLUTICASONE/SALMETEROL 250/50 (ADVAIR) 14 PUFF/1 INHALER INH SCH ×2 (08:16→20:57)
[2017-06-10] MEDS: RANITIDINE HCL 150 MG TAB PO SCH ×2 (08:16→20:58)
[2017-06-10] MEDS: BusPIRone 15 MG TAB PO SCH ×3 (08:17→21:01)
[2017-06-10] MEDS: CYCLOBENZAPRINE HCL 10 MG TAB PO SCH ×2 (08:18→20:57)
[2017-06-10] MEDS: LORATADINE 10 MG TAB PO SCH (08:18)
[2017-06-10] MEDS: MIRTAZAPINE TAB 15 MG TAB PO SCH (08:18)
[2017-06-10] MEDS: MIDODRINE 2.5 MG TAB PO SCH ×3 (08:19→18:26)
[2017-06-10] MEDS: TIOTROPIUM BROMIDE 5 PUFF/90 MCG INH INH SCH (08:19)
[2017-06-10] MEDS: CLOPIDOGREL BISULFATE 75 MG TAB PO SCH (08:20)
[2017-06-10 08:52] LABS: HEMATOCRIT 33.5 % (42-52); HEMOGLOBIN 10.6 g/dL (14.0-18.0); MEAN CELL VOLUME 83.8 fL (80-100); MEAN CORPUSCULAR HEMOGLOBIN 26.5 pg (25-34); MEAN CORPUSCULAR HGB CONC 31.6 g/dl (32-36); MEAN PLATELET VOLUME 9.9 fL (7.4-10.4); PLATELET COUNT 164 K/uL (130-400); RED CELL DISTRIBUTION WIDTH CV 17.6 % (11.5-14.5); RED CELL DISTRIBUTION WIDTH SD 54.4 fL (36.4-46.3); WHITE BLOOD COUNT 2.04 K/uL (4.8-10.8)
[2017-06-10 08:56] LABS: INR 4.6 (0.9-1.1)
[2017-06-10 08:59] LABS: PTT PATIENT 55.1 SECONDS (21.0-31.0)
[2017-06-10] MEDS ORDERED: METOPROLOL TARTRATE 25 MG TAB PO SCH (09:00)
[2017-06-10] MEDS ORDERED: ASPIRIN 81 MG ECTAB PO SCH (09:00)
[2017-06-10 09:08] LABS: IG# 0.01 K/uL (0.00-0.02); LYMPH % 36.3 %; LYMPH ABS # 0.74 K/uL (1.2-3.4); MONO % 36.3 %; MONO ABS # 0.74 K/uL (0.11-0.59); NEUT % 26.9 %; NEUT ABS # 0.55 K/uL (1.4-6.5)
[2017-06-10 09:16] LABS: BLOOD UREA NITROGEN 12 mg/dl (7-18); CALCIUM 8.6 mg/dl (8.5-10.1); CARBON DIOXIDE 22 mmol/L (21-32); CREATININE 0.86 mg/dl (0.60-1.40); GLUCOSE 103 mg/dl (70-99); POTASSIUM 4.6 mmol/L (3.5-5.1); SODIUM 134 mmol/L (136-145)
[2017-06-10] MEDS: OSELTAMIVIR PHOSPHATE 75 MG CAP PO SCH ×2 (09:39→20:59)
--- NOTE | 2017-06-10 13:31 | Hospitalist Progress Note ---
Hospitalist Progress Note Date of Service Jun 10, 2017. (Michaela Duong, HUGOC) Subjective Pt evaluation today including: conversation w/ patient, physical exam, chart review, lab review, review of studies, review of inpatient medication list Patient seen and evaluated. Admitted for significant orthostasis and influenza A. Patient was recently admitted for 12 days. Orthostasis is chronic and it is difficult to appropriately optimize him from a cardiac standpoint. Patient does appear ill but non-toxic. Dehydration and flu likely made his chronic issues more severe. Does feel that his is a little bit better but states he has the chills and can' t get warm. Aches all over and just feels generally fatigued. He is surprised that his BP appears to be doing a little bit better but hasn't really got up and moved today. (Michaela Duong, CHEIKH-C) Objective Vital Signs Date Time Temp Pulse Resp B/P (MAP) Pulse Ox O2 Delivery O2 Flow Rate FiO2 06/10/17 12:00 93 Room Air 2.0 06/10/17 12:00 36.5 89 18 117/79 (92) 94 Nasal Cannula 2.0 06/10/17 08:00 93 Room Air 2.0 06/10/17 07:24 37.0 90 20 99/71 (80) 93 Room Air 06/10/17 04:00 Nasal Cannula 2.0 06/10/17 03:38 36.9 96 20 118/80 (93) 93 Room Air 2.0 06/09/17 23:35 37.1 97 18 109/72 (84) 93 Nasal Cannula 2.0 06/09/17 22:00 37.0 113 22 109/77 94 Partial Rebreather 2.0 06/09/17 21:49 101 18 98 06/09/17 21:35 101 15 06/09/17 21:21 98/77 96 Room Air 06/09/17 21:20 06/09/17 21:08 98 06/09/17 21:05 101 17 06/09/17 20:35 103 20 06/09/17 20:30 102 26 98 Room Air 06/09/17 20:00 106 20 06/09/17 19:30 108 18 06/09/17 19:00 103 22 114/79 06/09/17 18:40 108 22 102/76 97 Room Air 06/09/17 17:34 97 Room Air 06/09/17 17:34 97 Room Air 06/09/17 17:32 102 20 109/71 97 Room Air 06/09/17 17:08 106 06/09/17 16:51 37.1 101 26 108/83 97 Room Air (Michaela Duong PA-C) Laboratory Results Last 24 Hours Test 06/09/17 17:40 06/09/17 17:50 06/09/17 18:32 06/09/17 23:40 Influenza Type A Antigen POS for Influ A Influenza Type B Antigen Neg for Influ B White Blood Count 3.73 K/uL Red Blood Count 4.06 M/uL Hemoglobin 10.5 g/dL Hematocrit 34.1 % Mean Corpuscular Volume 84.0 fL Mean Corpuscular Hemoglobin 25.9 pg Mean Corpuscular Hemoglobin Concent 30.8 g/dl Platelet Count 175 K/uL Mean Platelet Volume 10.3 fL Neutrophils (%) (Auto) 53.7 % Lymphocytes (%) (Auto) 21.4 % Monocytes (%) (Auto) 23.6 % Eosinophils (%) (Auto) 0.3 % Basophils (%) (Auto) 0.5 % Neutrophils # (Auto) 2.00 K/uL Lymphocytes # (Auto) 0.80 K/uL Monocytes # (Auto) 0.88 K/uL Eosinophils # (Auto) 0.01 K/uL Basophils # (Auto) 0.02 K/uL RDW Standard Deviation 54.7 fL RDW Coefficient of Variation 17.7 % Immature Granulocyte % (Auto) 0.5 % Immature Granulocyte # (Auto) 0.02 K/uL Sodium Level 131 mmol/L Potassium Level 4.2 mmol/L Chloride Level 101 mmol/L Carbon Dioxide Level 24 mmol/L Anion Gap 6.0 mmol/L Blood Urea Nitrogen 13 mg/dl Creatinine 1.23 mg/dl Est Creatinine Clear Calc Drug Dose 85.9 ml/min Estimated GFR () 74.5 Estimated GFR (Non- 64.3 BUN/Creatinine Ratio 10.9 Random Glucose 92 mg/dl Calcium Level 8.5 mg/dl Total Bilirubin 0.3 mg/dl Aspartate Amino Transf (AST/SGOT) 18 U/L Alanine Aminotransferase (ALT/SGPT) 18 U/L Alkaline Phosphatase 68 U/L Troponin I < 0.015 ng/ml < 0.015 ng/ml Total Protein 7.7 gm/dl Albumin 3.6 gm/dl Globulin 4.1 gm/dl Albumin/Globulin Ratio 0.9 Hepatitis C Antibody Screen PRELIM POS Prothrombin Time 49.8 SECONDS Prothromb Time International Ratio 4.9 Activated Partial Thromboplast Time 55.9 SECONDS Partial Thromboplastin Ratio 2.2 Test 06/10/17 03:42 06/10/17 08:19 Urine Color YELLOW Urine Appearance CLEAR Urine pH 5.5 Urine Specific Velarde 1.030 Urine Protein NEG Urine Glucose (UA) NEG Urine Ketones NEG Urine Occult Blood NEG Urine Nitrite NEG Urine Bilirubin NEG Urine Urobilinogen NEG Urine Leukocyte Esterase NEG White Blood Count 2.04 K/uL Red Blood Count 4.00 M/uL Hemoglobin 10.6 g/dL Hematocrit 33.5 % Mean Corpuscular Volume 83.8 fL Mean Corpuscular Hemoglobin 26.5 pg Mean Corpuscular Hemoglobin Concent 31.6 g/dl Platelet Count 164 K/uL Mean Platelet Volume 9.9 fL Neutrophils (%) (Auto) 26.9 % Lymphocytes (%) (Auto) 36.3 % Monocytes (%) (Auto) 36.3 % Eosinophils (%) (Auto) 0.0 % Basophils (%) (Auto) 0.0 % Neutrophils # (Auto) 0.55 K/uL Lymphocytes # (Auto) 0.74 K/uL Monocytes # (Auto) 0.74 K/uL Eosinophils # (Auto) 0.00 K/uL Basophils # (Auto) 0.00 K/uL RDW Standard Deviation 54.4 fL RDW Coefficient of Variation 17.6 % Immature Granulocyte % (Auto) 0.5 % Immature Granulocyte # (Auto) 0.01 K/uL Large Platelets 3+ Giant Platelets 1+ Poikilocytosis PRESENT Echinocytes 1+ Acanthocytes 1+ Prothrombin Time 47.2 SECONDS Prothromb Time International Ratio 4.6 Activated Partial Thromboplast Time 55.1 SECONDS Partial Thromboplastin Ratio 2.1 Sodium Level 134 mmol/L Potassium Level 4.6 mmol/L Chloride Level 104 mmol/L Carbon Dioxide Level 22 mmol/L Anion Gap 8.0 mmol/L Blood Urea Nitrogen 12 mg/dl Creatinine 0.86 mg/dl Est Creatinine Clear Calc Drug Dose 121.9 ml/min Estimated GFR () 110.8 Estimated GFR (Non- 95.6 BUN/Creatinine Ratio 14.3 Random Glucose 103 mg/dl Calcium Level 8.6 mg/dl Troponin I < 0.015 ng/ml (Michaela Duong, PA-C) Assessment and Plan This is a 56 yo m with a recent episode of symptomatic hypotension in the presence of severe cardiomyopathy and influenza A/ possible PNA Acute on Chronic Hypotension/Pre-Syncope - Worsened by Influenza - Telemetry reviewed with NSR mostly 80-90s with occ. tachy; troponins negative - He has significant cardiomyopathy and due to his orthostasis it has been hard to optimize him from a cardiac standpoint - tolerated Metoprolol 25 mg BID - after D/C [facility] and [facility] was notified to reduce to 12.5 mg BID - Will continue Metoprolol 25 mg BID as long as he tolerates this and will adjust accordingly - Cardiology consultation - appreciate recommendations Possible PNA - Infiltrate on Imaging with Influenza A: Droplet Precautions - Levaquin 750 mg IV daily and Tamiflu 75 mg BID - Ventolin 2 puffs PRN Paroxysmal Atrial Fibrillation; H/O DVT/PE; PVD: Supratherapeutic INR - Hold Coumadin and trend INR - no signs of bleeding - current INR 4.6 Hyponatremia: IMPROVING - Improving with IVF - will need to be cautious with fluids due to underlying cardiomyopathy Chronic Systolic CHF S/P ICD/Pacer - CAD S/P NSTEMI - Orthostatic Hypotension: - On recent admission had cath which revealed re-occlusion of stents placed in Mar 2017 in [place] - Continue Plavix 75 mg daily - Digoxin 0.125 mg daily, Metoprolol 25 mg BID, and Midodrine 2.5 mg TID - Lipitor 80 mg daily COPD without Exacerbation: - Ventolin PRN, Combivent 2 puffs QID, Spiriva 1 puff daily, and Advair 1 puff BID Depression/Anxiety: - Buspar 15 mg TID, Zoloft 25 mg HS, and Remeron 60 mg HS DVT Prophylaxis: Coumadin Code Status: FULL RESUSCITATION Disposition: - Patient currently living at [facility] - has limited income and was unable to purchase all medications from previous admission - is in the process of applying for assistance Continued [facility] stay due to: multiple IV medications needed Discharge planning: other ([facility]) (Michaela Duong, PABenoit) Attending Attestation: Pt seen/examined, chart reviewed, care plan d/w PA Michaela Duong. I agree w/ the carranza components of her documentation. Pt states "I feel pretty terrible." No appetite. Dizzy with ambulation. Tele stable. c/o "cold foot" on the right intermittently for a week or so; today it feels better; has some paresthesias in foot as well VSS except BPs low, no fever, o2 sats wnl gen - sickly neck - no JVD mouth - MM dry heart - RRR, s1, s2 lungs - CTA b/l; no rales abd - soft, NT ext - no edema; pulses right foot <1+ but cap refill <2 sec and no ischemic changes; pulses left foot 1-2+; popliteal pulses 2+ b/l A/P: 1. flu A - tamiflu x 5 days 2. chronic systolic CHF - appreciate cardiology consult 3. neutropenia - viral suppression from influenza?? repeat CBC with diff in am ; neutropenic precautions 4. hepC antibody positive - need to general counselor patient about this test result 5. chronic orthostasis - midodrine TID 6. hyponatremia - improved s/p judicious fluids 7. supratherapeutic INR - hold coumadin; lack of appetite likely contributed to this 8. right foot complaints - would be reasonable, in light of known PAD, to check arterial doppler of right leg to ensure adequate circulation. Luann WEINBERG MD (Juan A Weinberg MD)
--- NOTE | 2017-06-10 15:12 | CARDIOLOGY CONSULTATION ---
DATE OF CONSULTATION: 06/10/2017 REASON FOR CONSULTATION: Ischemic cardiomyopathy, coronary artery disease, orthostasis. CONSULTATION REQUESTED BY: Dr. Juan A Estevez HISTORY OF PRESENT ILLNESS: Mr. Morgan is a 56-year-old man with a complex past medical history, which includes longstanding cardiomyopathy, coronary artery disease status post recent AL in the setting of a subacute RCA stent thrombosis, prior VT/VF, status post multiple recent ICD shocks and ICD lead failure requiring redo ICD implantation earlier this month who returned to the hospital yesterday from the outpatient cardiology office in the setting of hypotension/orthostasis. The patient recently was hospitalized at [facility] from 05/22/2017-06/03/2017. He initially presented with worsening shortness of breath and some chest pain and reports of multiple recent ICD firings. During that hospitalization, he underwent a cardiac catheterization, which showed that his RCA stents that were placed 2 months prior were occluded. It was thought that he had subacute stent thrombosis the week prior and his coronary disease was managed medically. His device was interrogated and his ICD lead was thought to be failing and it was later replaced by Dr. Curtis. His hospitalization was prolonged in the setting of orthostasis, which eventually he was started on midodrine for. Following discharge, initially he states he was doing well, but over the last several days has become increasingly short of breath, fatigued and intermittently lightheaded, particularly with standing. He presented for a scheduled followup appointment yesterday where it was noted to have systolic blood pressures in the 80s while sitting down, which dropped into the 60s with standing. The patient reported presyncopal symptoms and was transferred to the ED for further evaluation. In the ED, his blood pressures have been more stable with systolic blood pressures in the 100s. EKG showed sinus tachycardia with inferior infarct, but no dynamic ST changes. His troponins have been negative. Chest x-ray, CT scan of the chest and carotid duplex studies were all unremarkable. Of note, the patient was found to have positive influenza and is being treated with Tamiflu as well as levofloxacin. PAST MEDICAL HISTORY: 1. Coronary artery disease status post PCI with 2 drug-eluting stents to RCA on 04/16/2017. Most recent catheterization on 05/23/2017 showed occluded proximal RCA at the location of the stents. He also had an occluded first diagonal, which filled via left to left collaterals. He had a moderate mid segment LAD disease and moderate disease and a moderate caliber ramus. 2. Longstanding nonischemic cardiomyopathy with EF as low down as 10%. He was previously followed by the heart failure service at [facility]. 3. Chronic systolic heart failure status post ICD, recent redo left-sided ICD placed by Dr. Curtis last admission. 4. Peripheral arterial disease status post bilateral common iliac artery aneurysms and bilateral popliteal artery aneurysm status post covered stent placement to the right and surgical repair of the aneurysm on the left. 5. Paroxysmal atrial fibrillation, history of recurrent DVT/PE, anemia, questionable seizure disorder, longstanding tobacco abuse with severe COPD. SOCIAL HISTORY: He states that he is initially from [place], [place], and more recently has been staying in [place]. Most recent care in the fall was down in [place], has been intermittently smoking. Denies heavy alcohol, denies illicit drugs. FAMILY HISTORY: Denies premature coronary artery disease or sudden cardiac . REVIEW OF SYSTEMS: Otherwise, negative unless stated in the HPI. PHYSICAL EXAMINATION: VITAL SIGNS: Temperature 37, pulse 90, blood pressure 99/71. He is satting 93% on room air. GENERAL: The patient appears uncomfortable, ill, but in no acute distress. HEENT: Sclerae are anicteric. Oropharynx is clear. His mucous membranes appear dry. NECK: Supple with no jugular venous distention. LUNGS: Clear with distant heart sounds. CARDIOVASCULAR: Heart was regular again with distant heart sounds, but no appreciable murmurs, rubs or gallops. ABDOMEN: Soft, nontender. EXTREMITIES: Warm. He had no significant lower extremity edema. He had intact distal pulses. SKIN: Shows no rashes or lesions. NEUROLOGIC: Nonfocal. PSYCHIATRIC: He was alert and oriented and appropriate. LABORATORY DATA: White blood cell count low at 2.0, hemoglobin of 10.6, platelets of 164. INR of 4.6, sodium 134, potassium 4.6, BUN of 12, creatinine of 0.86 down from 1.23. Troponins have been negative x3. Albumin of 3.6. Flu positive for influenza A. UA negative other than for specific gravity of 1.03. IMAGING: As discussed in HPI. Telemetry reviewed, sinus rhythm. No arrhythmia events. IMPRESSION AND PLAN: 1. Hypotension/orthostasis. 2. Cardiomyopathy. 3. Coronary artery disease status post recent myocardial infarction in the setting of subacute right coronary artery stent thrombosis. 4. Chronic systolic heart failure status post implantable cardioverter-defibrillator with recent implantable cardioverter-defibrillator revision. 5. Peripheral arterial disease status post surgical repair of left iliac, fem-pop aneurysms and an endovascular repair of right popliteal aneurysm. 6. Paroxysmal atrial fibrillation. 7. History of recurrent venous thromboembolism. 8. Positive influenza. Mr. Morgan returned yesterday with worsened orthostasis/hypotensive in the outpatient setting. The patient was found to be dehydrated testing positive for influenza. Flu/dehydration likely exacerbated has exacerbated his orthostasis which was a persistent problem during his most recent hospitalization. On exam today, he appearswell perfused, still hypovolemic. Low suspicion that current hypotension isdue to low cardiac output state. Going forward, we recommend continued IV fluids, continue treatment for influenza with Tamiflu, antibiotics as necessary. Would hold his current metoprolol and we will attempt to resume later in hospitalization, or as an outpatient as blood pressures allow. He can continue on current midodrine. Would also continue current aspirin, Plavix, and statin and digoxin for Afib. We will continue to follow while him in the hospital. Thank you for consultation. GWEN
[2017-06-10] MEDS: DIGOXIN 0.125 MG TAB PO SCH (16:06)
[2017-06-10] MEDS ORDERED: SODIUM CHLORIDE 0.9% 1000ML 1,000 ML IV SCH (17:15)
[2017-06-10] MEDS: SERTRALINE HCL 50 MG TAB PO SCH (20:59)
[2017-06-10] MEDS: NORTRIPTYLINE HCL 25 MG CAP PO SCH (21:00)
[2017-06-10] MEDS: ATORVASTATIN 40 MG TAB PO SCH (21:00)
[2017-06-11] VITALS (9 sets, daily range): BP systolic 89–118; BP diastolic 58–85; PULSE 83–111; TEMP 36.1–36.6; O2SAT 94–96
[2017-06-11] MEDS: LEVOFLOXACIN / D5W 750 MG in PREMIXED IN D5W 150 ML IV SCH (03:27)
[2017-06-11] MEDS: OXYCODONE/ACETAMINOPHEN 10/325MG TAB PO PRN ×3 (05:51→20:22)
[2017-06-11 06:42] LABS: INR 3.1 (0.9-1.1)
[2017-06-11 06:44] LABS: HEMATOCRIT 31.4 % (42-52); HEMOGLOBIN 9.6 g/dL (14.0-18.0); MEAN CELL VOLUME 85.1 fL (80-100); MEAN CORPUSCULAR HGB CONC 30.6 g/dl (32-36); MEAN PLATELET VOLUME 10.7 fL (7.4-10.4); PLATELET COUNT 150 K/uL (130-400); RED CELL DISTRIBUTION WIDTH CV 17.7 % (11.5-14.5); RED CELL DISTRIBUTION WIDTH SD 55.1 fL (36.4-46.3); WHITE BLOOD COUNT 2.13 K/uL (4.8-10.8)
[2017-06-11 07:04] LABS: CREATININE 0.9 mg/dl (0.60-1.40)
[2017-06-11] MEDS: RANITIDINE HCL 150 MG TAB PO SCH ×2 (07:47→20:26)
[2017-06-11] MEDS: FLUTICASONE/SALMETEROL 250/50 (ADVAIR) 14 PUFF/1 INHALER INH SCH ×2 (07:47→20:23)
[2017-06-11] MEDS: BusPIRone 15 MG TAB PO SCH ×3 (07:47→20:23)
[2017-06-11] MEDS: TIOTROPIUM BROMIDE 5 PUFF/90 MCG INH INH SCH (07:48)
[2017-06-11] MEDS: MIDODRINE 2.5 MG TAB PO SCH ×3 (07:49→17:41)
[2017-06-11] MEDS: OSELTAMIVIR PHOSPHATE 75 MG CAP PO SCH ×2 (07:49→20:23)
[2017-06-11] MEDS: CYCLOBENZAPRINE HCL 10 MG TAB PO SCH ×2 (07:50→20:25)
[2017-06-11] MEDS: CLOPIDOGREL BISULFATE 75 MG TAB PO SCH (07:50)
[2017-06-11] MEDS: LORATADINE 10 MG TAB PO SCH (07:51)
[2017-06-11] MEDS: SODIUM CHLORIDE 0.9% 1000ML 1,000 ML IV SCH ×2 (11:56→23:42)
--- NOTE | 2017-06-11 13:34 | Hospitalist Progress Note ---
Hospitalist Progress Note Date of Service Jun 11, 2017. (Michaela Duong PABenjyC) Subjective Pt evaluation today including: conversation w/ patient, physical exam, chart review, lab review, review of studies, review of inpatient medication list Patient seen and evaluated. No acute events overnight. Feels about the same as yesterday. Continues to have chills. Decreased appetite but trying to drink as much as possible. Oral mucosa is dry and will continue to hydrate with assessment for fluid overload. Explained Hep C testing. He denies known history of Hep C, high-risk exposure, or IV drug use. Was incarcerated in the past. Does have tattoos that could have been while incarcerated? Is in the window for routine testing . Will need F/U testing and can be done as outpatient. LFTs unremarkable. Constitutional: + chills, No fever Respiratory: + cough, + sputum, No shortness of breath Cardiovascular: No chest pain, No palpitations Abdomen: No pain, No nausea, No vomiting, No diarrhea, No constipation Musculoskeletal: No swelling, No calf pain Male : No dysuria Heme: No abnormal bleeding/bruising (Michaela Duong, CHEIKH-C) Medications Current Inpatient Medications Medications (Trade) Dose Ordered Sig/Mariama Route Start Time Stop Time Status Last Admin Dose Admin Ioversol (Optiray 320) 111 ml UD PRN IV 06/09/17 17:45 06/13/17 17:44 Acetaminophen (Tylenol Tab) 650 mg Q4H PRN PO 06/09/17 21:15 07/09/17 21:14 Al Hydrox/Mg Hydrox/Simethicone (Maalox Max Susp) 15 ml Q4H PRN PO 06/09/17 21:15 07/09/17 21:14 Magnesium Hydroxide (Milk Of Magnesia Susp) 30 ml Q12H PRN PO 06/09/17 21:15 07/09/17 21:14 Ondansetron HCl (Zofran Inj) 4 mg Q6H PRN IV 06/09/17 21:15 07/09/17 21:14 Nitroglycerin (Nitrostat Tab) 0.4 mg UD PRN SL 06/09/17 21:15 07/09/17 21:14 Morphine Sulfate (MoRPHine SULFATE INJ) 2 mg Q30M PRN IV 06/09/17 21:15 06/23/17 21:14 Miscellaneous (Iv Fluids Completed) 1 ea PRN PRN N/A 06/09/17 23:30 06/09/18 23:29 Albuterol (Ventolin Hfa Inhaler) 2 puffs Q6H PRN INH 06/09/17 23:45 07/09/17 23:44 Atorvastatin Calcium (Lipitor Tab) 80 mg HS PO 06/10/17 21:00 07/10/17 20:59 06/10/17 21:00 80 MG Buspirone HCl (BusPAR TAB) 15 mg TID PO 06/10/17 09:00 07/10/17 08:59 06/11/17 11:56 15 MG Clopidogrel Bisulfate (plAVix TAB) 75 mg QAM PO 06/10/17 09:00 07/10/17 08:59 06/11/17 07:50 75 MG Cyclobenzaprine HCl (Flexeril Tab) 10 mg BID PO 06/10/17 09:00 07/10/17 08:59 06/11/17 07:50 10 MG Digoxin (Lanoxin Tab) 0.125 mg DAILY@1600 PO 06/10/17 16:00 07/10/17 15:59 06/10/17 16:06 0.125 MG Salmeterol Xinafoate/ Fluticasone (Advair Diskus 250/50 Inh) 1 puff BID INH 06/10/17 09:00 07/10/17 08:59 06/11/17 07:47 1 PUFF Albuterol/ Ipratropium (Combivent Respimat Inh) 2 puffs QID PRN INH 06/09/17 23:45 07/09/17 23:44 Loratadine (Claritin Tab) 10 mg DAILY PO 06/10/17 09:00 07/10/17 08:59 06/11/17 07:51 10 MG Metoprolol Tartrate (Lopressor Tab) 25 mg BID PO 06/10/17 09:00 07/10/17 08:59 Future Hold 06/10/17 08:18 25 MG Midodrine (Proamatine Tab) 5 mg TID@0700,1200,1800 PO 06/10/17 07:00 07/10/17 06:59 06/11/17 11:56 5 MG Nortriptyline HCl (Pamelor Cap) 25 mg HS PO 06/10/17 21:00 07/10/17 20:59 06/10/17 21:00 25 MG Oxycodone/ Acetaminophen (Percocet 10-325MG Tab) 1 tab TID PRN PO 06/09/17 23:45 06/23/17 23:44 06/11/17 11:56 1 TAB Ranitidine HCl (zANTac TAB) 150 mg BID PO 06/10/17 09:00 07/10/17 08:59 06/11/17 07:47 150 MG Sertraline HCl (Zoloft Tab) 25 mg HS PO 06/10/17 21:00 07/10/17 20:59 06/10/17 20:59 25 MG Tiotropium [place] (Spiriva Handihaler Inhaler) 1 puff QAM INH 06/10/17 09:00 07/10/17 08:59 06/11/17 07:48 1 PUFF Mirtazapine (Remeron Tab) 60 mg HS PO 06/10/17 21:00 07/10/17 20:59 06/10/17 08:18 60 MG Levofloxacin 750 mg/Prmx 150 ml @ 100 mls/hr Q24H IV 06/10/17 03:00 06/17/17 02:59 06/11/17 03:27 100 MLS/HR Oseltamivir Phosphate (Tamiflu Cap) 75 mg BID PO 06/10/17 09:00 06/15/17 08:59 06/11/17 07:49 75 MG Sodium Chloride 1,000 ml @ 80 mls/hr [id number] IV 06/11/17 11:45 06/12/17 12:44 06/11/17 11:56 80 MLS/HR (Michaela Duong, DOROTHY) Objective Vital Signs Date Time Temp Pulse Resp B/P (MAP) Pulse Ox O2 Delivery O2 Flow Rate FiO2 06/11/17 12:00 Room Air 06/11/17 11:55 36.5 111 20 97/61 (73) 96 Room Air 06/11/17 08:00 Room Air 06/11/17 07:29 36.4 83 19 94/72 (79) 95 Room Air 06/11/17 04:00 Room Air 06/11/17 03:39 36.5 91 18 118/85 (96) 94 Room Air 06/11/17 00:00 Room Air 06/10/17 23:05 36.5 95 20 92/63 (73) 91 Room Air 06/10/17 20:00 92 Room Air 2.0 06/10/17 19:20 36.8 93 20 97/67 (77) 92 Room Air 06/10/17 16:06 88 06/10/17 16:00 91 Room Air 2.0 06/10/17 15:45 36.9 88 22 102/71 (81) 91 Room Air (Michaela Duong PA-C) Physical Exam General Appearance: no apparent distress, + pertinent finding (ill appearing) ENT: + pertinent finding (dry oral mucosa) Neck: supple, no JVD, trachea midline Respiratory/Chest: lungs clear, normal breath sounds, no respiratory distress, no accessory muscle use Cardiovascular: regular rate, rhythm, no gallop, no murmur Abdomen: normal bowel sounds, non tender, soft Extremities: no pedal edema, no calf tenderness Neurologic/Psychiatric: alert Skin: warm/dry, + pallor (Michaela Duong, CHEIKH-C) Laboratory Results Last 24 Hours Test 06/10/17 15:41 06/11/17 06:17 Troponin I 0.018 ng/ml White Blood Count 2.13 K/uL Red Blood Count 3.69 M/uL Hemoglobin 9.6 g/dL Hematocrit 31.4 % Mean Corpuscular Volume 85.1 fL Mean Corpuscular Hemoglobin 26.0 pg Mean Corpuscular Hemoglobin Concent 30.6 g/dl Platelet Count 150 K/uL Mean Platelet Volume 10.7 fL RDW Standard Deviation 55.1 fL RDW Coefficient of Variation 17.7 % Neutrophils % (Manual) 29.9 % Lymphocytes % (Manual) 40.3 % Variant Lymphocytes % (manual) 16.8 % Monocytes % (Manual) 12.1 % Basophils % (Manual) 0.9 % Neutrophils # (Manual) 0.64 K/uL Total Absolute Neutrophils 0.64 K/uL Lymphocytes # (Manual) 0.86 K/uL Absolute Variant Lymphocytes 0.36 K/uL Total Absolute Lymphocytes 1.22 K/uL Monocytes # (Manual) 0.26 K/uL Basophils # (Manual) 0.02 K/uL Large Platelets 2+ Giant Platelets 1+ Anisocytosis PRESENT Prothrombin Time 32.3 SECONDS Prothromb Time International Ratio 3.1 Sodium Level 139 mmol/L Potassium Level 4.0 mmol/L Chloride Level 108 mmol/L Carbon Dioxide Level 25 mmol/L Anion Gap 6.0 mmol/L Blood Urea Nitrogen 16 mg/dl Creatinine 0.90 mg/dl Est Creatinine Clear Calc Drug Dose 118.0 ml/min Estimated GFR () 108.7 Estimated GFR (Non- 93.8 BUN/Creatinine Ratio 17.3 Random Glucose 88 mg/dl Calcium Level 8.0 mg/dl (Michaela Duong, PABenoit) Assessment and Plan This is a 56 yo m with a recent episode of symptomatic hypotension in the presence of severe cardiomyopathy and influenza A/ possible PNA Acute on Chronic Hypotension/Pre-Syncope - Worsened by Influenza - He has significant cardiomyopathy and due to his orthostasis it has been hard to optimize him from a cardiac standpoint - Will hold Metoprolol 25 mg BID at this time - NSS at 80 mL/hr and will run 2 bags will be careful with fluid status - Cardiology consultation - appreciate recommendations Possible PNA - Infiltrate on Imaging with Influenza A: Droplet Precautions - Levaquin 750 mg IV daily and Tamiflu 75 mg BID - Ventolin 2 puffs PRN Paroxysmal Atrial Fibrillation; H/O DVT/PE; PVD: Supratherapeutic INR - Hold Coumadin and trend INR - no signs of bleeding - current INR 3.1 Hyponatremia: IMPROVING - Improving with IVF - will need to be cautious with fluids due to underlying cardiomyopathy Chronic Systolic CHF S/P ICD/Pacer - CAD S/P NSTEMI - Orthostatic Hypotension: - On recent admission had cath which revealed re-occlusion of stents placed in Mar 2017 in [place] - Continue Plavix 75 mg daily - Digoxin 0.125 mg daily, Metoprolol 25 mg BID, and Midodrine 2.5 mg TID - Lipitor 80 mg daily COPD without Exacerbation: - Ventolin PRN, Combivent 2 puffs QID, Spiriva 1 puff daily, and Advair 1 puff BID Depression/Anxiety: - Buspar 15 mg TID, Zoloft 25 mg HS, and Remeron 60 mg HS DVT Prophylaxis: Coumadin Code Status: FULL RESUSCITATION Disposition: - Patient currently living at [place] - has limited income and was unable to purchase all medications from previous admission - is in the process of applying for assistance Continued [facility] stay due to: multiple IV medications needed Discharge planning: home (Michaela Duong, HUGOC) PA Physician Supervision Note: I interviewed and examined the patient. Discussed with Michaela Duong PAC and agree with findings and plan as documented in the note. Any exceptions or clarifications are listed here: None Patient is doing okay he still has hypotension when he stands up he is suffering from influenza and as of July dry mouth it was noted that he is hepatitis C positive on his intake at this time we discussed this fact his visit also Temp is 36 for respiration rate 19 BP is 94/72 Cardiac exam is distant regular with a systolic murmur lungs have coarse rhonchi throughout he was coughing during my evaluation Influenza A continuing Tamiflu treatment respiratory isolation cough drops for dry mouth continuing to watch his orthostatic hypotension likely holding his beta sravan that he was instituted on subsequent to his recent ID Documented By: Mario Torrez (Mario Torrez M.D.)
[2017-06-11] MEDS: DIGOXIN 0.125 MG TAB PO SCH (17:41)
[2017-06-11] MEDS ORDERED: COUGH DROP (SUGAR FREE) LOZ 24 LOZ/1 BOX LOZ PRN (20:00)
[2017-06-11] MEDS ORDERED: FLUDROCORTISONE ACETATE 0.1 MG TAB PO ONE (20:00)
[2017-06-11] MEDS: MIRTAZAPINE TAB 15 MG TAB PO SCH (20:24)
[2017-06-11] MEDS: ATORVASTATIN 40 MG TAB PO SCH (20:25)
[2017-06-11] MEDS: NORTRIPTYLINE HCL 25 MG CAP PO SCH (20:25)
[2017-06-11] MEDS: SERTRALINE HCL 50 MG TAB PO SCH (20:26)
[2017-06-12] VITALS (8 sets, daily range): BP systolic 96–132; BP diastolic 59–88; PULSE 54–99; TEMP 36.3–36.6; O2SAT 94–96
[2017-06-12] MEDS: LEVOFLOXACIN / D5W 750 MG in PREMIXED IN D5W 150 ML IV SCH (04:02)
[2017-06-12] MEDS: OXYCODONE/ACETAMINOPHEN 10/325MG TAB PO PRN ×3 (05:41→21:48)
[2017-06-12 06:09] LABS: HEMATOCRIT 30.6 % (42-52); HEMOGLOBIN 9.4 g/dL (14.0-18.0); MEAN CELL VOLUME 85.5 fL (80-100); MEAN CORPUSCULAR HEMOGLOBIN 26.3 pg (25-34); MEAN CORPUSCULAR HGB CONC 30.7 g/dl (32-36); MEAN PLATELET VOLUME 9.8 fL (7.4-10.4); PLATELET COUNT 136 K/uL (130-400); RED CELL DISTRIBUTION WIDTH CV 17.5 % (11.5-14.5); RED CELL DISTRIBUTION WIDTH SD 54.9 fL (36.4-46.3); WHITE BLOOD COUNT 2.17 K/uL (4.8-10.8)
[2017-06-12 06:41] LABS: INR 1.8 (0.9-1.1)
[2017-06-12 06:57] LABS: CALCIUM 7.8 mg/dl (8.5-10.1); CREATININE 0.85 mg/dl (0.60-1.40); POTASSIUM 3.7 mmol/L (3.5-5.1)
[2017-06-12] MEDS: MIDODRINE 2.5 MG TAB PO SCH ×3 (09:48→18:52)
[2017-06-12] MEDS: FLUTICASONE/SALMETEROL 250/50 (ADVAIR) 14 PUFF/1 INHALER INH SCH ×2 (09:48→21:48)
[2017-06-12] MEDS: TIOTROPIUM BROMIDE 5 PUFF/90 MCG INH INH SCH (09:49)
[2017-06-12] MEDS: BusPIRone 15 MG TAB PO SCH ×3 (09:49→21:49)
[2017-06-12] MEDS: CYCLOBENZAPRINE HCL 10 MG TAB PO SCH ×2 (09:50→21:49)
[2017-06-12] MEDS: CLOPIDOGREL BISULFATE 75 MG TAB PO SCH (09:50)
[2017-06-12] MEDS: FLUDROCORTISONE ACETATE 0.1 MG TAB PO SCH (09:51)
[2017-06-12] MEDS: RANITIDINE HCL 150 MG TAB PO SCH ×2 (09:52→21:51)
[2017-06-12] MEDS: OSELTAMIVIR PHOSPHATE 75 MG CAP PO SCH ×2 (09:52→21:49)
[2017-06-12] MEDS: LORATADINE 10 MG TAB PO SCH (09:53)
--- NOTE | 2017-06-12 12:09 | Hospitalist Progress Note ---
Hospitalist Progress Note Date of Service Jun 12, 2017. (Michaela Duong PA-C) Subjective Pt evaluation today including: conversation w/ patient, physical exam, chart review, lab review, review of studies, review of inpatient medication list Patient seen and evaluated. Had episode of L arm pain yesterday. Reports this isnt uncommon for him and states he felt is was all his chronic shoulder issues as it wasn't like his cardiac pain. Says it continues to be intermittently sore but doing well. Continues to feel about the same. Objectively is looking a bit better. Still extremely dry on examination. Constitutional: + chills, + weakness (generalized), + fatigue, No fever Respiratory: + cough, + dyspnea on exertion, No dyspnea at rest Cardiovascular: No chest pain, No palpitations Abdomen: No pain, No nausea, No vomiting Musculoskeletal: + problem reported (generalized body aches) Male : No dysuria Heme: No abnormal bleeding/bruising (Michaela Duong PA-C) Medications Current Inpatient Medications Medications (Trade) Dose Ordered Sig/Mariama Route Start Time Stop Time Status Last Admin Dose Admin Ioversol (Optiray 320) 111 ml UD PRN IV 06/09/17 17:45 06/13/17 17:44 Acetaminophen (Tylenol Tab) 650 mg Q4H PRN PO 06/09/17 21:15 07/09/17 21:14 06/12/17 09:57 650 MG Al Hydrox/Mg Hydrox/Simethicone (Maalox Max Susp) 15 ml Q4H PRN PO 06/09/17 21:15 07/09/17 21:14 Magnesium Hydroxide (Milk Of Magnesia Susp) 30 ml Q12H PRN PO 06/09/17 21:15 07/09/17 21:14 Ondansetron HCl (Zofran Inj) 4 mg Q6H PRN IV 06/09/17 21:15 07/09/17 21:14 Nitroglycerin (Nitrostat Tab) 0.4 mg UD PRN SL 06/09/17 21:15 07/09/17 21:14 Morphine Sulfate (MoRPHine SULFATE INJ) 2 mg Q30M PRN IV 06/09/17 21:15 06/23/17 21:14 Miscellaneous (Iv Fluids Completed) 1 ea PRN PRN N/A 06/09/17 23:30 06/09/18 23:29 Albuterol (Ventolin Hfa Inhaler) 2 puffs Q6H PRN INH 06/09/17 23:45 07/09/17 23:44 Atorvastatin Calcium (Lipitor Tab) 80 mg HS PO 06/10/17 21:00 07/10/17 20:59 06/11/17 20:25 80 MG Buspirone HCl (BusPAR TAB) 15 mg TID PO 06/10/17 09:00 07/10/17 08:59 06/12/17 09:49 15 MG Clopidogrel Bisulfate (plAVix TAB) 75 mg QAM PO 06/10/17 09:00 07/10/17 08:59 06/12/17 09:50 75 MG Cyclobenzaprine HCl (Flexeril Tab) 10 mg BID PO 06/10/17 09:00 07/10/17 08:59 06/12/17 09:50 10 MG Digoxin (Lanoxin Tab) 0.125 mg DAILY@1600 PO 06/10/17 16:00 07/10/17 15:59 06/11/17 17:41 0.125 MG Salmeterol Xinafoate/ Fluticasone (Advair Diskus 250/50 Inh) 1 puff BID INH 06/10/17 09:00 07/10/17 08:59 06/12/17 09:48 1 PUFF Albuterol/ Ipratropium (Combivent Respimat Inh) 2 puffs QID PRN INH 06/09/17 23:45 07/09/17 23:44 Loratadine (Claritin Tab) 10 mg DAILY PO 06/10/17 09:00 07/10/17 08:59 06/12/17 09:53 10 MG Metoprolol Tartrate (Lopressor Tab) 25 mg BID PO 06/10/17 09:00 07/10/17 08:59 Future Hold 06/10/17 08:18 25 MG Midodrine (Proamatine Tab) 5 mg TID@0700,1200,1800 PO 06/10/17 07:00 07/10/17 06:59 06/12/17 09:48 5 MG Nortriptyline HCl (Pamelor Cap) 25 mg HS PO 06/10/17 21:00 07/10/17 20:59 06/11/17 20:25 25 MG Oxycodone/ Acetaminophen (Percocet 10-325MG Tab) 1 tab TID PRN PO 06/09/17 23:45 06/23/17 23:44 06/12/17 05:41 1 TAB Ranitidine HCl (zANTac TAB) 150 mg BID PO 06/10/17 09:00 07/10/17 08:59 06/12/17 09:52 150 MG Sertraline HCl (Zoloft Tab) 25 mg HS PO 06/10/17 21:00 07/10/17 20:59 06/11/17 20:26 25 MG Tiotropium [place] (Spiriva Handihaler Inhaler) 1 puff QAM INH 06/10/17 09:00 07/10/17 08:59 06/12/17 09:49 1 PUFF Mirtazapine (Remeron Tab) 60 mg HS PO 06/10/17 21:00 07/10/17 20:59 06/11/17 20:24 60 MG Levofloxacin 750 mg/Prmx 150 ml @ 100 mls/hr Q24H IV 06/10/17 03:00 06/17/17 02:59 06/12/17 04:02 100 MLS/HR Oseltamivir Phosphate (Tamiflu Cap) 75 mg BID PO 06/10/17 09:00 06/15/17 08:59 06/12/17 09:52 75 MG Sodium Chloride 1,000 ml @ 80 mls/hr [id number] IV 06/11/17 11:45 06/12/17 12:44 06/11/17 23:42 80 MLS/HR Menthol (Nice Randolph) 1 randolph Q1H PRN RANDOLPH 06/11/17 20:00 07/11/17 19:59 Fludrocortisone Acetate (Florinef Tab) 0.1 mg QAM PO 06/12/17 09:00 07/12/17 08:59 06/12/17 09:51 0.1 MG Warfarin Sodium (Coumadin Tab) 1 mg DAILY@16 PO 06/12/17 16:00 07/12/17 15:59 Polyethylene (Miralax Powder Packet) 17 gm DAILY PRN PO 06/12/17 12:00 07/12/17 11:59 UNV (Michaela Duong PA-C) Objective Vital Signs Date Time Temp Pulse Resp B/P (MAP) Pulse Ox O2 Delivery O2 Flow Rate FiO2 06/12/17 11:32 36.3 97 20 104/72 (83) 94 Room Air 06/12/17 09:40 99 97/88 (91) 54 102/72 (82) 83 96/59 (71) 06/12/17 08:00 Room Air 06/12/17 07:45 36.5 85 18 103/68 (80) 94 Room Air 06/12/17 04:00 Room Air 06/12/17 03:47 36.6 97 18 106/76 (86) 95 Room Air 06/12/17 00:00 Room Air 06/11/17 23:35 36.3 102 18 111/75 (87) 94 Room Air 06/11/17 20:00 95 Room Air 06/11/17 19:58 36.1 90 16 89/58 (68) 95 Room Air 06/11/17 17:41 94 06/11/17 17:39 36.6 94 22 91/63 (72) 95 Room Air 06/11/17 16:00 95 Room Air 06/11/17 15:56 36.4 99 16 100/69 (79) 06/11/17 12:00 Room Air 06/11/17 11:55 36.5 111 20 97/61 (73) 96 Room Air (Michaela Duong PA-C) Physical Exam General Appearance: no apparent distress Neck: supple, no JVD, trachea midline Respiratory/Chest: + rhonchi (lower lung warren b/l) Cardiovascular: regular rate, rhythm, no gallop, no murmur Abdomen: normal bowel sounds, non tender, soft Neurologic/Psychiatric: alert (Michaela Duong PA-C) Laboratory Results Last 24 Hours Test 06/11/17 18:01 06/12/17 05:49 Troponin I 0.017 ng/ml White Blood Count 2.17 K/uL Red Blood Count 3.58 M/uL Hemoglobin 9.4 g/dL Hematocrit 30.6 % Mean Corpuscular Volume 85.5 fL Mean Corpuscular Hemoglobin 26.3 pg Mean Corpuscular Hemoglobin Concent 30.7 g/dl RDW Standard Deviation 54.9 fL RDW Coefficient of Variation 17.5 % Platelet Count 136 K/uL Mean Platelet Volume 9.8 fL Prothrombin Time 18.5 SECONDS Prothromb Time International Ratio 1.8 Sodium Level 141 mmol/L Potassium Level 3.7 mmol/L Chloride Level 111 mmol/L Carbon Dioxide Level 24 mmol/L Anion Gap 6.0 mmol/L Blood Urea Nitrogen 10 mg/dl Creatinine 0.85 mg/dl Est Creatinine Clear Calc Drug Dose 123.1 ml/min Estimated GFR () 111.3 Estimated GFR (Non- 96.0 BUN/Creatinine Ratio 11.8 Random Glucose 90 mg/dl Calcium Level 7.8 mg/dl Magnesium Level 2.0 mg/dl (Michaela Duong, PABenjyC) Assessment and Plan This is a 56 yo m with a recent episode of symptomatic hypotension in the presence of severe cardiomyopathy and influenza A/ possible PNA Acute on Chronic Hypotension/Pre-Syncope - Worsened by Influenza - He has significant cardiomyopathy and due to his orthostasis it has been hard to optimize him from a cardiac standpoint - Will hold Metoprolol 25 mg BID at this time; Florinef 0.1 mg daily - NSS at 80 mL/hr x 2 more bags - will continue to adjust per assessment to avoid fluid overload - Cardiology following Possible PNA - Infiltrate on Imaging with Influenza A: Droplet Precautions - Levaquin 750 mg IV daily and Tamiflu 75 mg BID - Ventolin 2 puffs PRN Paroxysmal Atrial Fibrillation; H/O DVT/PE; PVD: - Resume Coumadin at 1 mg and continue to monitor INR Hyponatremia: RESOLVED Chronic Systolic CHF S/P ICD/Pacer - CAD S/P NSTEMI - Orthostatic Hypotension: - On recent admission had cath which revealed re-occlusion of stents placed in Mar 2017 in [place] - Continue Plavix 75 mg daily - Digoxin 0.125 mg daily and Lipitor 80 mg daily; Metoprolol on hold COPD without Exacerbation: - Ventolin PRN, Combivent 2 puffs QID, Spiriva 1 puff daily, and Advair 1 puff BID Depression/Anxiety: - Buspar 15 mg TID, Zoloft 25 mg HS, and Remeron 60 mg HS DVT Prophylaxis: Coumadin Code Status: FULL RESUSCITATION Disposition: - Patient currently living at [place] - has limited income and was unable to purchase all medications from previous admission - is in the process of applying for assistance Continued [facility] stay due to: multiple IV medications needed Discharge planning: home (Pratima Fry) (Michaela Duong, DOROTHY) PA Physician Supervision Note: I interviewed and examined the patient. Discussed with Michaela Duong PAC and agree with findings and plan as documented in the note. Any exceptions or clarifications are listed here: None Patient looks and feels much better today he is actually having less hypotensive episodes with postural changes his appetite is improving Vital signs show temperature 36 5 pulse 85 respiration rate 18 BP is 103/68 did not fall much lower than 90 systolic with postural changes he's 94% on room air His cardiac exam is regular his lungs are clear his abdomen normoactive bowel sounds and soft Patient is here with baseline cardiac disease and orthostatic hypotension presents with acute onset influenza A and incidentally noted hepatitis C testing which is positive on intake Patient will continue his Tamiflu Patient was given Florinef in this addition to his other medications to try to augment his blood pressure this seems to be doing the check as well as holding his beta sravan at this time likely he'll need physical therapy reevaluation for going home meds hopeful that with less orthostatic hypotension he'll feel better to ambulate Documented By: Mario Torrez (Mario Torrez M.D.)
[2017-06-12] MEDS: POLYETHYLENE (MIRALAX) 17 GM PACK PO PRN (13:00)
[2017-06-12] MEDS ORDERED: WARFARIN SOD 1 MG TAB PO SCH (16:00)
[2017-06-12] MEDS: SODIUM CHLORIDE 0.9% 1000ML 1,000 ML IV SCH (16:12)
[2017-06-12] MEDS: DIGOXIN 0.125 MG TAB PO SCH (16:14)
[2017-06-12] MEDS: ATORVASTATIN 40 MG TAB PO SCH (21:50)
[2017-06-12] MEDS: MIRTAZAPINE TAB 15 MG TAB PO SCH (21:51)
[2017-06-12] MEDS: NORTRIPTYLINE HCL 25 MG CAP PO SCH (21:51)
[2017-06-12] MEDS: SERTRALINE HCL 50 MG TAB PO SCH (21:52)
[2017-06-13] VITALS (13 sets, daily range): BP systolic 93–129; BP diastolic 61–92; PULSE 87–125; TEMP 36.2–37; O2SAT 94–97
[2017-06-13] MEDS: LEVOFLOXACIN / D5W 750 MG in PREMIXED IN D5W 150 ML IV SCH (02:43)
[2017-06-13] MEDS: OXYCODONE/ACETAMINOPHEN 10/325MG TAB PO PRN ×3 (04:51→21:11)
[2017-06-13 06:00] LABS: HEMATOCRIT 30.4 % (42-52); HEMOGLOBIN 9.3 g/dL (14.0-18.0); MEAN CELL VOLUME 84.7 fL (80-100); MEAN CORPUSCULAR HEMOGLOBIN 25.9 pg (25-34); MEAN CORPUSCULAR HGB CONC 30.6 g/dl (32-36); MEAN PLATELET VOLUME 10.4 fL (7.4-10.4); PLATELET COUNT 140 K/uL (130-400); RED CELL DISTRIBUTION WIDTH CV 17.4 % (11.5-14.5); RED CELL DISTRIBUTION WIDTH SD 54.5 fL (36.4-46.3); WHITE BLOOD COUNT 2.37 K/uL (4.8-10.8)
[2017-06-13 06:08] LABS: INR 1.4 (0.9-1.1)
[2017-06-13 06:41] LABS: CALCIUM 7.5 mg/dl (8.5-10.1); CREATININE 0.84 mg/dl (0.60-1.40); POTASSIUM 3.9 mmol/L (3.5-5.1)
[2017-06-13] MEDS: MIDODRINE 2.5 MG TAB PO SCH ×3 (06:53→18:02)
[2017-06-13] MEDS: SODIUM CHLORIDE 0.9% 1000ML 1,000 ML IV SCH (06:53)
[2017-06-13] MEDS: FLUTICASONE/SALMETEROL 250/50 (ADVAIR) 14 PUFF/1 INHALER INH SCH ×2 (09:35→21:02)
[2017-06-13] MEDS: TIOTROPIUM BROMIDE 5 PUFF/90 MCG INH INH SCH (09:35)
[2017-06-13] MEDS: RANITIDINE HCL 150 MG TAB PO SCH ×2 (09:38→21:06)
[2017-06-13] MEDS: OSELTAMIVIR PHOSPHATE 75 MG CAP PO SCH ×2 (09:38→21:05)
[2017-06-13] MEDS: BusPIRone 15 MG TAB PO SCH ×3 (09:38→21:04)
[2017-06-13] MEDS: CLOPIDOGREL BISULFATE 75 MG TAB PO SCH (09:39)
[2017-06-13] MEDS: CYCLOBENZAPRINE HCL 10 MG TAB PO SCH ×2 (09:39→21:04)
[2017-06-13] MEDS: LORATADINE 10 MG TAB PO SCH (09:39)
[2017-06-13] MEDS: FLUDROCORTISONE ACETATE 0.1 MG TAB PO SCH (09:40)
[2017-06-13] MEDS: POLYETHYLENE (MIRALAX) 17 GM PACK PO PRN (11:31)
[2017-06-13] MEDS: MoRPHine SULFATE 2 MG/ML CARP IV PRN ×3 (11:32→23:29)
[2017-06-13] MEDS ORDERED: TMF75 PO (13:06)
[2017-06-13] MEDS ORDERED: WARF4TAB43 PO (13:06)
--- NOTE | 2017-06-13 13:10 | Discharge Instructions ---
Discharge Instructions Date of Service Jun 13, 2017. Admission Reason for Admission: Hypotension, Influenza A, Pre-Syncope Discharge Discharge Diagnosis / Problem: influenza infection. Discharge Goals Goal(s): Diagnostic testing, Therapeutic intervention Activity Recommendations Activity Limitations: as noted below Lifting Limitations: gradually increase as tolerated you have had your Coumadin reduced to one 2 mg tablet a day, please have your blood work checked at the end of the week please fill your Tamiflu and finish it . Current Hospital Diet Patient's current hospital diet: Regular Diet Discharge Diet Recommended Diet: Regular Diet (you may liberalize salt in your diet) Pending Studies Studies pending at discharge: no Laboratory Results Hemoglobin A1c Test 05/23/17 03:43 Range/Units Estimated Average Glucose 100 mg/dl Hemoglobin A1c 5.1 4.5-5.6 % Lipid Panel Test 05/23/17 03:43 Range/Units Triglycerides Level 75 0-150 mg/dl Cholesterol Level 104 0-200 mg/dl HDL Cholesterol 39 mg/dl Cholesterol/HDL Ratio 2.7 LDL Cholesterol, Calculated 50 mg/dl Medical Emergencies . Who to Call and When: Medical Emergencies: If at any time you feel your situation is an emergency, please call 911 immediately. . Non-Emergent Contact Non-Emergency issues call your: Primary Care Provider Call Non-Emergent contact if: temperature is above 101, your pain is unusual for you . . "Provider Documentation" section prepared by Mario Torrez. . VTE Core Measure Inpt VTE Proph given/why not?: Warfarin (Coumadin), SCD's
[2017-06-13] MEDS: WARFARIN SOD 2 MG TAB PO SCH (17:21)
[2017-06-13] MEDS: DIGOXIN 0.125 MG TAB PO SCH (17:21)
--- NOTE | 2017-06-13 18:03 | Progress Note ---
Subjective Date of Service: Jun 13, 2017. Subjective Patient is doing well earlier in the day felt slightly weak and requested on morning of treatment prior to going home Later day developed an episode of chest pain and acute EKG was performed any ST or T-wave changes he patient himself states that the chest pain he feels may be more musculoskeletal related to previous shoulder injuries he did receive nitroglycerin his pain was resolved is resting comfortably is approximately 1800 hrs. Problem List Medical Problems: (1) Abdominal aortic aneurysm Status: Acute (2) Elevated INR Status: Acute (3) Influenza A Status: Acute (4) Left leg cellulitis Status: Acute (5) Non-STEMI (non-ST elevated myocardial infarction) Status: Acute (6) Syncope Status: Acute Review of Systems Constitutional: No fever, No chills Respiratory: No cough, No shortness of breath Cardiac: + chest pain, No orthopnea, No PND Abdomen: No pain, No nausea, No vomiting, No diarrhea Neurologic: No memory loss, No paralysis Objective Vital Signs Date Time Temp Pulse Resp B/P (MAP) Pulse Ox O2 Delivery O2 Flow Rate FiO2 06/13/17 17:30 37.0 125 22 108/70 (83) 96 Nasal Cannula 2.0 06/13/17 17:21 120 06/13/17 15:18 36.7 90 18 129/92 (104) 96 Room Air 06/13/17 12:00 97 Room Air 06/13/17 11:15 36.7 96 16 109/76 (87) 94 Room Air 06/13/17 08:00 97 Room Air 06/13/17 07:36 36.8 87 20 112/74 (87) 97 Room Air 06/13/17 04:26 36.9 98 20 120/85 (97) 94 Room Air 06/13/17 04:00 Room Air 06/13/17 00:00 95 Room Air 06/13/17 00:00 36.5 96 115/80 (92) 95 Room Air 06/12/17 20:00 95 Room Air 06/12/17 19:27 36.3 91 110/80 (90) 95 Room Air Physical Exam General Appearance: WD/WN, + mild distress Eyes: normal inspection, sclerae normal Neck: supple, no JVD Respiratory/Chest: chest non-tender, lungs clear, no respiratory distress Cardiovascular: regular rate, rhythm, no murmur Abdomen: normal bowel sounds, non tender, soft Neurologic/Psychiatric: alert, oriented x 3 Laboratory Results Last 24 Hours Test 06/13/17 05:22 White Blood Count 2.37 K/uL Red Blood Count 3.59 M/uL Hemoglobin 9.3 g/dL Hematocrit 30.4 % Mean Corpuscular Volume 84.7 fL Mean Corpuscular Hemoglobin 25.9 pg Mean Corpuscular Hemoglobin Concent 30.6 g/dl RDW Standard Deviation 54.5 fL RDW Coefficient of Variation 17.4 % Platelet Count 140 K/uL Mean Platelet Volume 10.4 fL Prothrombin Time 14.6 SECONDS Prothromb Time International Ratio 1.4 Sodium Level 139 mmol/L Potassium Level 3.9 mmol/L Chloride Level 110 mmol/L Carbon Dioxide Level 23 mmol/L Anion Gap 6.0 mmol/L Blood Urea Nitrogen 11 mg/dl Creatinine 0.84 mg/dl Est Creatinine Clear Calc Drug Dose 124.6 ml/min Estimated GFR () 111.9 Estimated GFR (Non- 96.5 BUN/Creatinine Ratio 12.6 Random Glucose 86 mg/dl Calcium Level 7.5 mg/dl Magnesium Level 2.0 mg/dl Assessment and Plan 56 yo m with a recent episode of symptomatic hypotension in the presence of severe cardiomyopathy and influenza A/ possible PNA Acute on Chronic Hypotension/Pre-Syncope - Worsened by Influenza This is improved greatly with holding metoprolol continuing management and using ; Florinef 0.1 mg daily -We did discuss his medications as an outpatient as financial constraints to prevent him from receiving new medicines, Florinef is roughly $25 a month at this point we will follow his blood pressure off Florinef on 06/14 and determine if we need to pursue this as an outpatient - Cardiology following Possible PNA - Infiltrate on Imaging with Influenza A: Droplet Precautions will manage symptoms greatly improved - Levaquin 750 mg IV daily and Tamiflu 75 mg BID we'll eventually DC adjust Tamiflu - Ventolin 2 puffs PRN Paroxysmal Atrial Fibrillation; H/O DVT/PE; PVD: -INR remains low we will increase Coumadin to 2 mg and continue to monitor INR Hyponatremia: RESOLVED Chronic Systolic CHF S/P ICD/Pacer - CAD S/P NSTEMI - Orthostatic Hypotension: - On recent admission had cath which revealed re-occlusion of stents placed in Mar 2017 in [place] - Continue Plavix 75 mg daily - Digoxin 0.125 mg daily and Lipitor 80 mg daily; Metoprolol on hold chest pain does not show acute changes may consider reinstituting a beta sravan if intermittent chest pain continues COPD continues without Exacerbation: - Ventolin PRN, Combivent 2 puffs QID, Spiriva 1 puff daily, and Advair 1 puff BID Depression/Anxiety: Seems controlled - Buspar 15 mg TID, Zoloft 25 mg HS, and Remeron 60 mg HS DVT Prophylaxis: Coumadin Code Status: FULL RESUSCITATION Continued [facility] stay due to: multiple IV medications needed Discharge planning: home (Pratima Fry)
[2017-06-13] MEDS: MIRTAZAPINE TAB 15 MG TAB PO SCH (21:03)
[2017-06-13] MEDS: NORTRIPTYLINE HCL 25 MG CAP PO SCH (21:04)
[2017-06-13] MEDS: ATORVASTATIN 40 MG TAB PO SCH (21:05)
[2017-06-13] MEDS: SERTRALINE HCL 50 MG TAB PO SCH (21:06)
[2017-06-13] MEDS: MAGNESIUM HYDROXIDE SUSP 30 ML UDC PO PRN (23:34)
[2017-06-14] VITALS (8 sets, daily range): BP systolic 112–134; BP diastolic 80–95; PULSE 92–113; TEMP 36.2–37.1; O2SAT 93–97
[2017-06-14] MEDS: LEVOFLOXACIN / D5W 750 MG in PREMIXED IN D5W 150 ML IV SCH (02:51)
[2017-06-14] MEDS: OXYCODONE/ACETAMINOPHEN 10/325MG TAB PO PRN ×3 (05:44→20:15)
[2017-06-14 06:21] LABS: HEMATOCRIT 30.1 % (42-52); HEMOGLOBIN 9.4 g/dL (14.0-18.0); MEAN CORPUSCULAR HEMOGLOBIN 26.6 pg (25-34); MEAN CORPUSCULAR HGB CONC 31.2 g/dl (32-36); MEAN PLATELET VOLUME 10.6 fL (7.4-10.4); PLATELET COUNT 147 K/uL (130-400); RED CELL DISTRIBUTION WIDTH CV 17.3 % (11.5-14.5); RED CELL DISTRIBUTION WIDTH SD 54.5 fL (36.4-46.3); WHITE BLOOD COUNT 2.96 K/uL (4.8-10.8)
[2017-06-14 06:35] LABS: INR 1.2 (0.9-1.1)
[2017-06-14 06:54] LABS: CALCIUM 7.7 mg/dl (8.5-10.1); CREATININE 0.92 mg/dl (0.60-1.40); POTASSIUM 3.9 mmol/L (3.5-5.1)
[2017-06-14] MEDS: CLOPIDOGREL BISULFATE 75 MG TAB PO SCH (08:47)
[2017-06-14] MEDS: LORATADINE 10 MG TAB PO SCH (08:47)
[2017-06-14] MEDS: FLUDROCORTISONE ACETATE 0.1 MG TAB PO SCH (08:47)
[2017-06-14] MEDS: RANITIDINE HCL 150 MG TAB PO SCH ×2 (08:48→20:16)
[2017-06-14] MEDS: CYCLOBENZAPRINE HCL 10 MG TAB PO SCH ×2 (08:48→20:15)
[2017-06-14] MEDS: MIDODRINE 2.5 MG TAB PO SCH ×3 (08:48→16:46)
[2017-06-14] MEDS: BusPIRone 15 MG TAB PO SCH ×3 (08:48→20:15)
[2017-06-14] MEDS: TIOTROPIUM BROMIDE 5 PUFF/90 MCG INH INH SCH (08:49)
[2017-06-14] MEDS: FLUTICASONE/SALMETEROL 250/50 (ADVAIR) 14 PUFF/1 INHALER INH SCH ×2 (08:49→20:14)
[2017-06-14] MEDS: OSELTAMIVIR PHOSPHATE 75 MG CAP PO SCH ×2 (08:49→20:16)
[2017-06-14] MEDS: POLYETHYLENE (MIRALAX) 17 GM PACK PO PRN (12:18)
[2017-06-14] MEDS ORDERED: CARVEDILOL 3.125 MG TAB PO ONE (14:29)
--- NOTE | 2017-06-14 14:59 | Hospitalist Progress Note ---
Hospitalist Progress Note Date of Service Jun 14, 2017. (Michaela Duong, PABenjyC) Subjective Pt evaluation today including: conversation w/ patient, physical exam, chart review, lab review, review of studies, review of inpatient medication list Patient reporting feeling much better compared to admission. BPs and orthostatics are improving but still symptomatic. He ambulated the hallways and did well from an orthostatic perspective. However was SOB and diaphoretic with ambulation. Has been intermittently tachycardic even with rest. Due to financial strain will hold Xavier Restart Coreg 3.125 mg BID for cardiac protection and monitor BPs. Reporting intermittent L shoulder pain that is chronic. Recommended to not lay on that side as it could be making it worse. Most of the time he is laying on his L side. Constitutional: + sweats (with ambulation), No fever, No chills Respiratory: + dyspnea on exertion, No dyspnea at rest Cardiovascular: No chest pain Abdomen: No pain, No nausea, No vomiting Musculoskeletal: + joint pain (chronic back and L shoulder pain), No swelling, No calf pain Heme: No abnormal bleeding/bruising (Michaela Duong, CHEIKH-C) Medications Current Inpatient Medications Medications (Trade) Dose Ordered Sig/Mariama Route Start Time Stop Time Status Last Admin Dose Admin Acetaminophen (Tylenol Tab) 650 mg Q4H PRN PO 06/09/17 21:15 07/09/17 21:14 06/12/17 09:57 650 MG Al Hydrox/Mg Hydrox/Simethicone (Maalox Max Susp) 15 ml Q4H PRN PO 06/09/17 21:15 07/09/17 21:14 Magnesium Hydroxide (Milk Of Magnesia Susp) 30 ml Q12H PRN PO 06/09/17 21:15 07/09/17 21:14 06/13/17 23:34 30 ML Ondansetron HCl (Zofran Inj) 4 mg Q6H PRN IV 06/09/17 21:15 07/09/17 21:14 Nitroglycerin (Nitrostat Tab) 0.4 mg UD PRN SL 06/09/17 21:15 07/09/17 21:14 Morphine Sulfate (MoRPHine SULFATE INJ) 2 mg Q30M PRN IV 06/09/17 21:15 06/23/17 21:14 06/13/17 23:29 2 MG Miscellaneous (Iv Fluids Completed) 1 ea PRN PRN N/A 06/09/17 23:30 06/09/18 23:29 Albuterol (Ventolin Hfa Inhaler) 2 puffs Q6H PRN INH 06/09/17 23:45 07/09/17 23:44 Atorvastatin Calcium (Lipitor Tab) 80 mg HS PO 06/10/17 21:00 07/10/17 20:59 06/13/17 21:05 80 MG Buspirone HCl (BusPAR TAB) 15 mg TID PO 06/10/17 09:00 07/10/17 08:59 06/14/17 14:40 15 MG Clopidogrel Bisulfate (plAVix TAB) 75 mg QAM PO 06/10/17 09:00 07/10/17 08:59 06/14/17 08:47 75 MG Cyclobenzaprine HCl (Flexeril Tab) 10 mg BID PO 06/10/17 09:00 07/10/17 08:59 06/14/17 08:48 10 MG Digoxin (Lanoxin Tab) 0.125 mg DAILY@1600 PO 06/10/17 16:00 07/10/17 15:59 06/13/17 17:21 0.125 MG Salmeterol Xinafoate/ Fluticasone (Advair Diskus 250/50 Inh) 1 puff BID INH 06/10/17 09:00 07/10/17 08:59 06/14/17 08:49 1 PUFF Albuterol/ Ipratropium (Combivent Respimat Inh) 2 puffs QID PRN INH 06/09/17 23:45 07/09/17 23:44 Loratadine (Claritin Tab) 10 mg DAILY PO 06/10/17 09:00 07/10/17 08:59 06/14/17 08:47 10 MG Metoprolol Tartrate (Lopressor Tab) 25 mg BID PO 06/10/17 09:00 07/10/17 08:59 Future Hold 06/10/17 08:18 25 MG Midodrine (Proamatine Tab) 5 mg TID@0700,1200,1800 PO 06/10/17 07:00 07/10/17 06:59 06/14/17 12:13 5 MG Nortriptyline HCl (Pamelor Cap) 25 mg HS PO 06/10/17 21:00 07/10/17 20:59 06/13/17 21:04 25 MG Oxycodone/ Acetaminophen (Percocet 10-325MG Tab) 1 tab TID PRN PO 06/09/17 23:45 06/23/17 23:44 06/14/17 12:18 1 TAB Ranitidine HCl (zANTac TAB) 150 mg BID PO 06/10/17 09:00 07/10/17 08:59 06/14/17 08:48 150 MG Sertraline HCl (Zoloft Tab) 25 mg HS PO 06/10/17 21:00 07/10/17 20:59 06/13/17 21:06 25 MG Tiotropium [place] (Spiriva Handihaler Inhaler) 1 puff QAM INH 06/10/17 09:00 07/10/17 08:59 06/14/17 08:49 1 PUFF Mirtazapine (Remeron Tab) 60 mg HS PO 06/10/17 21:00 07/10/17 20:59 06/13/17 21:03 60 MG Levofloxacin 750 mg/Prmx 150 ml @ 100 mls/hr Q24H IV 06/10/17 03:00 06/17/17 02:59 06/14/17 02:51 100 MLS/HR Oseltamivir Phosphate (Tamiflu Cap) 75 mg BID PO 06/10/17 09:00 06/15/17 08:59 06/14/17 08:49 75 MG Menthol (Nice Randolph) 1 randolph Q1H PRN RANDOLPH 06/11/17 20:00 07/11/17 19:59 Polyethylene (Miralax Powder Packet) 17 gm DAILY PRN PO 06/12/17 12:00 07/12/17 11:59 06/14/17 12:18 17 GM Warfarin Sodium (Coumadin Tab) 2 mg DAILY@16 PO 06/13/17 16:00 07/12/17 15:59 06/13/17 17:21 2 MG Carvedilol (Coreg Tab) 3.125 mg BID PO 06/14/17 21:00 07/14/17 20:59 (Rhoda, Michaela M., PA-C) Objective Vital Signs Date Time Temp Pulse Resp B/P (MAP) Pulse Ox O2 Delivery O2 Flow Rate FiO2 06/14/17 12:00 Room Air 06/14/17 11:25 36.7 113 18 112/82 (92) 97 Room Air 06/14/17 09:02 Room Air 06/14/17 07:17 36.4 92 18 134/92 (106) 96 Room Air 06/14/17 04:00 93 Room Air 06/14/17 03:51 37.1 105 18 127/89 (102) 93 129/95 (106) 113/80 (91) 06/14/17 00:00 96 Room Air 06/13/17 23:28 36.2 98 16 116/83 (94) 94 Room Air 06/13/17 20:00 97 Room Air 06/13/17 19:15 36.7 89 16 101/70 (80) 95 Room Air 06/13/17 18:19 106/75 (85) 105/71 (82) 93/61 (72) 06/13/17 18:12 97 Room Air 06/13/17 17:30 37.0 125 22 108/70 (83) 96 Nasal Cannula 2.0 06/13/17 17:21 120 06/13/17 15:18 36.7 90 18 129/92 (104) 96 Room Air (Michaela Duong PA-C) Physical Exam General Appearance: WD/WN, no apparent distress Neck: supple, no JVD, trachea midline Respiratory/Chest: lungs clear, normal breath sounds, no respiratory distress, no accessory muscle use Cardiovascular: regular rate, rhythm, no gallop, no murmur Abdomen: normal bowel sounds, non tender, soft Extremities: no pedal edema Neurologic/Psychiatric: alert Skin: normal color, warm/dry (Michaela Duong PA-C) Laboratory Results Last 24 Hours Test 06/14/17 05:44 White Blood Count 2.96 K/uL Red Blood Count 3.54 M/uL Hemoglobin 9.4 g/dL Hematocrit 30.1 % Mean Corpuscular Volume 85.0 fL Mean Corpuscular Hemoglobin 26.6 pg Mean Corpuscular Hemoglobin Concent 31.2 g/dl RDW Standard Deviation 54.5 fL RDW Coefficient of Variation 17.3 % Platelet Count 147 K/uL Mean Platelet Volume 10.6 fL Prothrombin Time 12.5 SECONDS Prothromb Time International Ratio 1.2 Sodium Level 138 mmol/L Potassium Level 3.9 mmol/L Chloride Level 107 mmol/L Carbon Dioxide Level 26 mmol/L Anion Gap 5.0 mmol/L Blood Urea Nitrogen 11 mg/dl Creatinine 0.92 mg/dl Est Creatinine Clear Calc Drug Dose 113.8 ml/min Estimated GFR () 105.9 Estimated GFR (Non- 91.4 BUN/Creatinine Ratio 12.0 Random Glucose 94 mg/dl Calcium Level 7.7 mg/dl Magnesium Level 2.2 mg/dl (Michaela Duong, PABenjyC) Assessment and Plan This is a 56 yo m with a recent episode of symptomatic hypotension in the presence of severe cardiomyopathy and influenza A/ possible PNA Acute on Chronic Hypotension/Pre-Syncope - Worsened by Influenza - He has significant cardiomyopathy and due to his orthostasis it has been hard to optimize him from a cardiac standpoint - Stop Metoprolol and hold Florinef as he has limited finances at this time; Restart Coreg 3.125 mg BID for cardiac protection as he continues to be diaphoretic and SOB with ambulation Possible PNA - Infiltrate on Imaging with Influenza A: Droplet Precautions - Levaquin 750 mg daily and Tamiflu 75 mg BID - both to complete course on 06/15 - Ventolin 2 puffs PRN Paroxysmal Atrial Fibrillation; H/O DVT/PE; PVD: - Resume Coumadin at 2 mg and continue to monitor INR - currently subtherapeutic Hyponatremia: RESOLVED Chronic Systolic CHF S/P ICD/Pacer - CAD S/P NSTEMI - Orthostatic Hypotension: - On recent admission had cath which revealed re-occlusion of stents placed in Mar 2017 in [place] - Continue Plavix 75 mg daily - Digoxin 0.125 mg daily and Lipitor 80 mg daily COPD without Exacerbation: - Ventolin PRN, Combivent 2 puffs QID, Spiriva 1 puff daily, and Advair 1 puff BID Depression/Anxiety: - Buspar 15 mg TID, Zoloft 25 mg HS, and Remeron 60 mg HS DVT Prophylaxis: Coumadin Code Status: FULL RESUSCITATION Disposition: - Patient currently living at [place] - has limited income and was unable to purchase all medications from previous admission - is in the process of applying for assistance - Possible D/C tomorrow Continued [facility] stay due to: abnormal vital signs Discharge planning: home (Pratima Fry) (Michaela Duong, PA-C) PA Physician Supervision Note: I interviewed and examined the patient. Discussed with Michaela Duong PAC and agree with findings and plan as documented in the note. Any exceptions or clarifications are listed here: None Patient looks and feels much better today he is actually having less hypotensive episodes with postural changes his appetite is improving Vital signs show t BP still did not fall much lower than 90 systolic with postural change His cardiac exam is regular his lungs are clear his abdomen normoactive bowel sounds and soft Patient is here with baseline cardiac disease and orthostatic hypotension presents with acute onset influenza A and incidentally noted hepatitis C testing which is positive on intake Patient will continue his Tamiflu Pt has significant dyspnea on exertion, will re introduce a betablocker with coreg and see how pt feels and Documented By: Mario Torrez (Mario Torrez M.D.) (Mario Torrez M.D.)
[2017-06-14] MEDS: WARFARIN SOD 2 MG TAB PO SCH (16:45)
[2017-06-14] MEDS: DIGOXIN 0.125 MG TAB PO SCH (16:45)
[2017-06-14] MEDS: MAGNESIUM HYDROXIDE SUSP 30 ML UDC PO PRN (20:14)
[2017-06-14] MEDS: NORTRIPTYLINE HCL 25 MG CAP PO SCH (20:15)
[2017-06-14] MEDS: SERTRALINE HCL 50 MG TAB PO SCH (20:16)
[2017-06-14] MEDS: CARVEDILOL 3.125 MG TAB PO SCH (20:16)
[2017-06-14] MEDS: MIRTAZAPINE TAB 15 MG TAB PO SCH (20:16)
[2017-06-14] MEDS: ATORVASTATIN 40 MG TAB PO SCH (20:17)
[2017-06-15 04:03] VITALS: BP 128/90; PULSE 93; TEMP 36.8; O2SAT 93
[2017-06-15] MEDS: OXYCODONE/ACETAMINOPHEN 10/325MG TAB PO PRN ×2 (04:08→11:19)
[2017-06-15] MEDS: MIDODRINE 2.5 MG TAB PO SCH ×2 (07:08→11:15)
[2017-06-15 07:40] VITALS: BP_SYST 117; BP_SYST 138; BP_DIAS 86; BP_DIAS 95; PULSE 106; TEMP 36.7; O2SAT 94
[2017-06-15] MEDS: RANITIDINE HCL 150 MG TAB PO SCH (09:12)
[2017-06-15] MEDS: FLUTICASONE/SALMETEROL 250/50 (ADVAIR) 14 PUFF/1 INHALER INH SCH (09:13)
[2017-06-15] MEDS: BusPIRone 15 MG TAB PO SCH (09:13)
[2017-06-15] MEDS: CARVEDILOL 3.125 MG TAB PO SCH (09:13)
[2017-06-15] MEDS: CYCLOBENZAPRINE HCL 10 MG TAB PO SCH (09:13)
[2017-06-15] MEDS: CLOPIDOGREL BISULFATE 75 MG TAB PO SCH (09:13)
[2017-06-15] MEDS: LORATADINE 10 MG TAB PO SCH (09:13)
[2017-06-15] MEDS ORDERED: CONSULT PHARMACY STA (10:43)
[2017-06-15] MEDS ORDERED: CRG3125 PO (10:50)
[2017-06-15] MEDS ORDERED: LEVOFLOXACIN 750 MG TAB PO SCH (11:00)
[2017-06-15] MEDS ORDERED: CARVEDILOL 3.125 MG TAB PO SCH (11:00)
[2017-06-15] MEDS: TIOTROPIUM BROMIDE 5 PUFF/90 MCG INH INH SCH (11:14)
[2017-06-15 11:50] VITALS: BP 129/89; PULSE 90; TEMP 36.8; O2SAT 97
[2017-06-15] MEDS ORDERED: WARF4TAB43 PO (13:01)
--- NOTE | 2017-06-15 15:54 | Discharge Summary ---
Discharge Summary Date of Service Jun 15, 2017. Discharge Summary Admission Date: Jun 11, 2017 at 11:24 Discharge Date: Jun 15, 2017 Discharge Disposition: Home ([place]) Principal Diagnosis: Influenza A Problems/Secondary Diagnoses: 1. Mixed Diastolic/Systolic CHF 2. Paroxysmal Atrial Fibrillation 3. CAD S/P AL and Stents with Re-Occlusion 4. S/P ICD/Pacer 5. H/O DVT/PE 6. Peripheral Vascular Disease with Occlusion 7. DELICIA 8. COPD Immunizations: Have You Had Influenza Vaccine: Unknown History of Tetanus Vaccine?: Unknown History of Pneumococcal: Unknown History of Hepatitis B Vaccine: Unknown Procedures: (CHEST FOR PE) ANGIO WITH FINDINGS: Mild cardiomegaly. Thoracic aorta is unremarkable in course and caliber. Pulmonary vasculature enhances appropriately. No significant filling defects. Mild parenchymal infiltrative process left lower lobe. Minimal atelectasis right base. IMPRESSION: 1. Study is negative for pulmonary embolus. 2. Mild stable cardiomegaly. 3. Mild parenchymal infiltrate left base. 4. Mild atelectasis right base. ULTRASOUND OF THE CAROTID ARTERIES FINDINGS: Blood pressures were not assessed due to the presence of IV catheters. The carotid arteries are patent bilaterally and demonstrate antegrade flow. There is mild atherosclerotic plaque seen in the carotid bulbs. Normal doppler arterial waveforms are seen throughout. Velocity measurements are listed below. Common carotid peak systolic velocity (cm/sec): RIGHT: 43 LEFT: 50 ICA proximal peak systolic velocity (cm/sec): RIGHT: 41 LEFT: 30 ICA mid peak systolic velocity (cm/sec): RIGHT: 52 LEFT: 47 ICA distal peak systolic velocity (cm/sec): RIGHT: 59 LEFT: 57 ICA/CC peak systolic ratio: RIGHT: 1.4 LEFT: 1.1 Antegrade flow was shown in the vertebral arteries. The external carotid arteries are patent. IMPRESSION: 1. There is no sonographic evidence of hemodynamically significant stenosis in the right or left carotid arterial system. 2. Antegrade flow is shown in the vertebral arteries. Consultations: 1. Cardiology Medication Reconciliation New Medications: Carvedilol (Carvedilol) 3.125 Mg Tab 3.125 MG PO BID for 30 Days, #60 TAB Continued Medications: Albuterol Hfa (Ventolin Hfa) 200 Puffs/48789 Mcg Aers 2 PUFFS INH Q6H PRN for Shortness of Breath, INHALER Aspirin (Aspirin Ec) 81 Mg Tab 81 MG PO QAM Atorvastatin (Lipitor) 80 Mg Tab 80 MG PO HS, TAB Buspirone Hcl (Buspar) 15 Mg Tab 15 MG PO TID, TAB Clopidogrel (Plavix) 75 Mg Tab 75 MG PO QAM, TAB Cyclobenzaprine Hcl (Flexeril) 10 Mg Tab 10 MG PO BID, TAB Digoxin (Digoxin) 0.125 Mg Tab 0.125 MG PO QAM Fluticasone Prop/Salmeterol (Advair Diskus 250/50 60 Dose) 1 Ea Aerp 1 PUFF INH BID, INHALER Ipratropium-Albuterol (Combivent Respimat) 1 Aer Aer 1 PUFF INH QID, INH Loratadine (Claritin) 10 Mg Tab 10 MG PO DAILY, TAB Midodrine (Midodrine HCl) 2.5 Mg Tab 5 MG PO TID TAKE THIS MEDICATION AT 0800, 1200 AND 1800 HOURS Mirtazapine Soltab (Remeron Soltab) 30 Mg Soltab 60 MG PO HS, TAB Nortriptyline (Pamelor) 25 Mg Cap 25 MG PO HS, CAP Oxycodone/Acetaminophen 10MG/325MG (Percocet 10MG/325MG) Tab 1 TAB PO TID PRN for Pain, TAB Ranitidine (Zantac) 150 Mg Tab 150 MG PO BID, TAB Sertraline (Zoloft) 50 Mg Tab 25 MG PO HS, TAB Tiotropium [place] (Spiriva Handihaler) 30 Puff/540 Mcg Aerp 1 CAP INH QAM, CAP Warfarin Sodium (Warfarin Sodium) 2 Mg Tab 2 MG PO QD@16 for 30 Days, #30 TAB (This prescription has been renewed) TAKE 2 MG EVERY DAY OR OTHERWISE DIRECTED TO TAKE BY ANTICOAGULATION CLINIC/MD Discontinued Medications: Metoprolol Tartrate (Lopressor) 25 Mg Tab 25 MG PO BID, TAB Discharge Exam General/Constitutional: Denies fever/chills, fatigue, weakness ENT: Denies nasal drainage, sore throat, trouble swallowing Cardiovascular: Denies chest pain, palpitations, edema Respiratory: + cough, + GROSSMAN; Denies sputum, orthopnea GI: Denies nausea, vomiting, abdominal pain, constipation, diarrhea, melena/ hematochezia : Denies dysuria, frequency, hematuria Musculoskeletal: + chronic back and L shoulder pain Neurologic: Denies dizziness/lightheadedness, numbness/tingling Hematologic/Lymphatic: Denies bleeding/clotting abnormalities Skin: Denies rash, easy bruising General Appearance: WDWN in NAD who is A&O x 3 HEENT: Head is normocephalic/atraumatic; Hearing grossly intact; Mucous membranes moist; Pharynx negative for exudate/lesions Neck: Supple; Trachea midline; Neg JVD Heart: RRR with no M/G/R Lungs: CTA in all lung warren bilaterally but diminished at bases; Respirations unlabored; Neg accessory muscle use Abdomen: Soft, non-tender, non-distended; Positive BS x 4 quadrants; Neg organomegaly Extremities: Capillary refill < 2 seconds; pulses 2+ at dorsalis pedis b/l; Neg cyanosis or edema Neurological: Speech clear; Neg focal neurologic deficits Psychiatric: Appropriate mood/affect Skin: Normal Color; Warm/Dry Hospital Course ADMISSION: This is a 56 yo m with a h/o NSTEMI resulting in systolic CHF, PAF, HTN, hyperlipidemia, Anxiety that is presenting to us with hypotension/ presyncopal earlier today. The patient states that for the past few days he has had "cold like symptoms" and general weakness/ SOB on exertion. He went to his cardiologists today where he had an episode of hypotension/ presyncope and he was recommended to come to the ED for evaluation. He was found to have influenza A. He was also given a 500cc NSS bolus for dehydration/ hyponatremia. The patient states that he currently feels very weak/ achy. He however denies any chest pain. He recently (2 weeks prior) had a ACID placed for his cardiomyopathy. Xarelto was held for a short time for this procedure and placed but found to be supratherapeutic today. 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 HOSPITAL COURSE: Mr. Morgan was admitted for worsening orthostatic hypotension and influenza A. He completed course of Tamiflu and clinically improved. BPs are improved with systolic pressures in the 110-130 range. Still orthostatic especially from sitting to standing but again systolics staying in the 100+ range. He has been ambulating the hallways without difficulty or lightheadedness /dizziness. Does get GROSSMAN which would be expected given his underlying lung disease and significant cardiomyopathy Acute on Chronic Hypotension/Pre-Syncope - Worsened by Influenza - IMPROVING - He has significant cardiomyopathy and due to his orthostasis it has been hard to optimize him from a cardiac standpoint - Gave trial of Florinef but due to cost will hold; patient states he is planning on purchasing Midodrine when able to - could consider either one custodial if this helps him - Stopped Metoprolol and restarted his previous Coreg 3.125 mg BID for cardiac protection Possible PNA - Infiltrate on Imaging with Influenza A: - Levaquin 750 mg daily and Tamiflu 75 mg BID which he completed both courses in -hospital - Ventolin 2 puffs PRN Paroxysmal Atrial Fibrillation; H/O DVT/PE; PVD: - Resume Coumadin at 2 mg daily with INR check and adjustments as needed Chronic Systolic CHF S/P ICD/Pacer - CAD S/P NSTEMI - Orthostatic Hypotension: - On recent admission had cath which revealed re-occlusion of stents placed in Mar 2017 in [place] - Will need F/U with CHF clinic - case management will assist COPD without Exacerbation: - Continued inhalers in-hospital but these are at a significant cost - hopefully could have samples given? Disposition: - Discharge back to [place]. Patient is functionally doing better but overall chronically ill. High risk for readmission given his co-morbidities. - Case Management will assist with F/U appointments PA Physician Supervision Note: I interviewed and examined the patient. Discussed with Michaela LAIRD and agree with findings and plan as documented in the note. Any exceptions or clarifications are listed here: None Patient was seen and feeling better today is also ambulating without as much shortness of breath is tolerating his Coreg Vital signs show temp of his 7 pulse 106 respiration rate 20 blood pressure is tolerable with the systolics generally been above 100 and diastolics nothing significantly low he's O2 sat is 94 and room air is current exam is distant regular with a systolic murmur lungs are clear Patient is been treated with a full closure Tamiflu for influenza, the patient is tolerable of Coreg as a substitute of his metoprolol he was on Florinef intermittently which did help with his orthostatic hypotensive issues however he cannot afford this on discharged will continue with midodrine and encourage intake so type diet Documented By: Mario Torrez Total Time Spent: Greater than 30 minutes This includes examination of the patient, discharge planning, medication reconciliation, and communication with other providers. Discharge Instructions Please refer to the electronic Patient Visit Report (Discharge Instructions) for additional information. Additional Copies To Jocelyn Turner CRNP
== END 2017-06-15 13:51 | disposition home or self-care (01) | DRG 194 ==
LOC: C.EDB 16:44 → C.2T 21:13 → UNDOADMOB 21:13 → ENRESERV 21:34 → OBSVTOIN 06-11 11:24 → INTOOBSV 06-11 11:24
PROVIDERS: ADMIT Hospitalist; ATTEND Internal Medicine
DX: J10.00 Influenza due to other identified influenza virus with unspecified type of pneumonia (principal); I50.22 Chronic systolic (congestive) heart failure; F11.20 Opioid dependence, uncomplicated; E87.1 Hypo-osmolality and hyponatremia; I48.91 Unspecified atrial fibrillation; I95.9 Hypotension, unspecified; I11.0 Hypertensive heart disease with heart failure; I25.10 Atherosclerotic heart disease of native coronary artery without angina pectoris; E78.2 Mixed hyperlipidemia; F41.9 Anxiety disorder, unspecified; J44.9 Chronic obstructive pulmonary disease, unspecified; E86.0 Dehydration; I25.2 Old myocardial infarction; Z87.891 Personal history of nicotine dependence; Z79.82 Long term (current) use of aspirin; Z79.01 Long term (current) use of anticoagulants; Z86.711 Personal history of pulmonary embolism; Z86.718 Personal history of other venous thrombosis and embolism

== ENCOUNTER → 2017-06-18 | Outpatient (CLI) | payer OTHER ==
[~2017-06-18] MED LIST changes: +ADVIN25/60 INH; -ADVIN25050 INH; +CLR10 PO; -CMD25 PO; +CRG3125 PO; -LORA10CA2 PO; -LPR25 PO; +RANI150T85 PO; +SERT50TA PO; -SPRIN INH; +SPRIN/30 INH; +WARF4TAB43 PO; -ZLF50 PO; -ZNT150 PO
[2017-06-18 18:00] LABS: INR 1.3 (0.9-1.1)
--- NOTE | 2017-07-01 12:47 | CODING QUERY NO DIAGNOSIS ---
Valid Physician Order Needed A valid physician order must be submitted in order to properly bill for the service(s) provided, including date of service(s), valid diagnosis, and physician signature. If these tests are done on a recurring basis the original physican order must be submitted in order to code and bill for the service(s) provided. Please fax us the original, signed physician order so that we may expedite billing to [phone] DOS 06/18/2017 * PT/INR Thank you Cici Gregorio Health Information Management
== END | disposition home or self-care (01) ==
LOC: C.LABSPEC 09:41
PROVIDERS: ATTEND Nurse Practitioner Adult Health
DX: I48.91 Unspecified atrial fibrillation (principal)

== ENCOUNTER → 2017-06-26 | Outpatient (CLI) | payer OTHER ==
[2017-06-26 12:16] LABS: INR 1.4 (0.9-1.1)
== END | disposition home or self-care (01) ==
LOC: C.LABSPEC 11:44
PROVIDERS: ATTEND Nurse Practitioner Adult Health
DX: Z51.81 Encounter for therapeutic drug level monitoring (principal); Z79.01 Long term (current) use of anticoagulants; I48.91 Unspecified atrial fibrillation

== ENCOUNTER → 2017-06-30 | Outpatient (CLI) | payer OTHER ==
[2017-06-30 10:06] LABS: HEMATOCRIT 37.4 % (42-52); HEMOGLOBIN 11.7 g/dL (14.0-18.0); MEAN CELL VOLUME 82.4 fL (80-100); MEAN CORPUSCULAR HEMOGLOBIN 25.8 pg (25-34); MEAN CORPUSCULAR HGB CONC 31.3 g/dl (32-36); MEAN PLATELET VOLUME 10.2 fL (7.4-10.4); PLATELET COUNT 190 K/uL (130-400); RED CELL DISTRIBUTION WIDTH CV 17.5 % (11.5-14.5); RED CELL DISTRIBUTION WIDTH SD 52.7 fL (36.4-46.3); WHITE BLOOD COUNT 5.55 K/uL (4.8-10.8)
[2017-06-30 10:15] LABS: BLOOD UREA NITROGEN 10 mg/dl (7-18); CALCIUM 8.9 mg/dl (8.5-10.1); CARBON DIOXIDE 23 mmol/L (21-32); CREATININE 1.17 mg/dl (0.60-1.40); GLUCOSE 105 mg/dl (70-99); POTASSIUM 4.3 mmol/L (3.5-5.1); SODIUM 137 mmol/L (136-145)
[2017-06-30 10:20] LABS: TRANSFERRIN 325 mg/dl (200-360)
--- NOTE | 2017-07-18 05:54 | CODING QUERY NO DIAGNOSIS ---
Valid Physician Order Needed A valid physician order must be submitted in order to properly bill for the service(s) provided, including date of service(s), valid diagnosis, and physician signature. If these tests are done on a recurring basis the original physician order must be submitted in order to code and bill for the service(s) provided. Please fax us the original, signed physician order so that we may expedite billing to [phone] DOS 06/30/17 * CBC, PRP, transferrin, ferritin Thank you! Vikki Godinez Health Information Management
== END | disposition home or self-care (01) ==
LOC: C.LABSPEC 09:35
PROVIDERS: ATTEND Internal Medicine
DX: D64.9 Anemia, unspecified (principal); I48.91 Unspecified atrial fibrillation; I95.9 Hypotension, unspecified; R19.7 Diarrhea, unspecified

== ENCOUNTER → 2017-07-03 | Outpatient (CLI) | payer OTHER ==
[2017-07-03 12:37] LABS: INR 1.8 (0.9-1.1)
== END | disposition home or self-care (01) ==
LOC: C.LABSPEC 12:08
PROVIDERS: ATTEND Internal Medicine
DX: Z51.81 Encounter for therapeutic drug level monitoring (principal); Z79.01 Long term (current) use of anticoagulants; I48.91 Unspecified atrial fibrillation

== ENCOUNTER → 2017-07-10 | Outpatient (CLI) | payer OTHER | END | disposition home or self-care (01) | LOC: C.LABSPEC 14:55 | PROVIDERS: ATTEND Internal Medicine | DX: Z79.01 Long term (current) use of anticoagulants (principal); Z51.81 Encounter for therapeutic drug level monitoring; I11.0 Hypertensive heart disease with heart failure; J41.0 Simple chronic bronchitis ==

== ENCOUNTER → 2017-07-17 | Outpatient (CLI) | payer OTHER ==
[2017-07-17 13:25] LABS: INR 3.1 (0.9-1.1)
== END | disposition home or self-care (01) ==
LOC: C.LAB1850 11:55
PROVIDERS: ATTEND Nurse Practitioner Adult Health
DX: I48.91 Unspecified atrial fibrillation (principal)

== ENCOUNTER → 2017-07-24 | Outpatient (CLI) | payer OTHER ==
[2017-07-24 17:47] LABS: INR 2.5 (0.9-1.1)
== END | disposition home or self-care (01) ==
LOC: C.LABSPEC 10:50
PROVIDERS: ATTEND Internal Medicine
DX: Z79.01 Long term (current) use of anticoagulants (principal)

== ENCOUNTER → 2017-08-07 | Outpatient (CLI) | payer OTHER ==
[2017-08-07 18:42] LABS: INR 2.1 (0.9-1.1)
== END | disposition home or self-care (01) ==
LOC: C.LABSPEC 17:57
PROVIDERS: ATTEND Internal Medicine
DX: I48.0 Paroxysmal atrial fibrillation (principal); I10 Essential (primary) hypertension; Z79.02 Long term (current) use of antithrombotics/antiplatelets

== ENCOUNTER → 2017-08-21 | Outpatient (CLI) | payer OTHER ==
[2017-08-21 12:07] LABS: INR 1.7 (0.9-1.1)
== END | disposition home or self-care (01) ==
LOC: C.LABSPEC 11:33
PROVIDERS: ATTEND Internal Medicine
DX: Z79.82 Long term (current) use of aspirin (principal); Z79.01 Long term (current) use of anticoagulants; Z79.02 Long term (current) use of antithrombotics/antiplatelets; I50.32 Chronic diastolic (congestive) heart failure

== ENCOUNTER → 2017-09-04 | Outpatient (CLI) | payer OTHER ==
[~2017-09-04] MED LIST changes: +CARV3.12 PO; +CARV3.122 PO; +LSX40 PO; +MIDO5TAB PO; +MRLP527 PO; -OXYC-106 PO; +OXYC10TA80 PO; +PANT40TA2 PO; +SPR25 PO; +TRMO180 TD; +WARF2.5T8 PO; +WARF3TAB6 PO
[2017-09-04 11:22] LABS: INR 1.7 (0.9-1.1)
[2017-09-04 11:50] LABS: BLOOD UREA NITROGEN 10 mg/dl (7-18); CALCIUM 8.5 mg/dl (8.5-10.1); CARBON DIOXIDE 27 mmol/L (21-32); CREATININE 1.03 mg/dl (0.60-1.40); GLUCOSE 79 mg/dl (70-99); POTASSIUM 4.2 mmol/L (3.5-5.1); SODIUM 136 mmol/L (136-145)
== END | disposition home or self-care (01) ==
LOC: C.LABSPEC 10:32
PROVIDERS: ATTEND Internal Medicine
DX: I48.91 Unspecified atrial fibrillation (principal); I50.20 Unspecified systolic (congestive) heart failure

== ENCOUNTER 2017-09-13 12:00 | Inpatient (IN) | payer OTHER ==
[~2017-09-13] VITALS: Ht 188 cm; Wt 113.4 kg
[~2017-09-13 12:00] MED LIST changes: -CARV3.12 PO; -CARV3.122 PO; -LSX40 PO; -MIDO5TAB PO; -MRLP527 PO; -PANT40TA2 PO; -SPR25 PO; -TRMO180 TD; -WARF2.5T8 PO; -WARF3TAB6 PO
[2017-09-13] MEDS ORDERED: DiphenhydrAMINE HCL 50 MG/ML VIAL IV STA (12:14)
[2017-09-13] MEDS ORDERED: HYDROmorphone INJ 1 MG/ML SYR IV STA (12:14)
[2017-09-13] MEDS ORDERED: METHYLPREDNISOLONE 125 MG VIAL IV STA (12:14)
[2017-09-13] MEDS ORDERED: HYDROmorphone INJ 1 MG/ML SYR IV PRN (12:15)
--- NOTE | 2017-09-13 12:24 | EMERGENCY ROOM VISIT NOTE ---
History First contact with patient: 12:06 Chief Complaint: RESPIRATORY PROBLEMS Stated Complaint: BREATHING DIFFICULTY History of Present Illness The patient is a 56 year old male who presents to the Emergency Room shortness of breath. Worsening shob over the last few days. Associated with leg swelling , abdominal swelling, and cough. Worse with laying flat, better with sitting up. Similar to previous episodes of fluid overload. Notes he had lost 15lbs over the last few weeks due to increased lasix dosing and severe fluid restrictions. States he feels very dehydrated but is worried he is fluid overloaded. Notes he was coughing so hard last night he got light headed and fell over. Notes no full syncope, nor did he strike head, neck. He did hit right abdomen/chest during fall which is causing pain and has exacerbated his chronic low back pain. Back pain is similar to previous flair ups. He has taken no medications prior to arrival. He has no fevers, chills, abdominal pain , nausea, vomiting, headache, neck pain, rashes, nor other symptoms. History of cardiomyopathy, multiple admissions for CHF before and is on Coumadin. Patient notes history of NSTEMI, CAD with stents, CHF (EF<30%), PAF, COPD, HTN, Dislipidemia. Last admission 05/2017 for influenza. Review of Systems See HPI for pertinent positives & negatives. A total of 10 systems reviewed and were otherwise negative. Past Medical/Surgical History Medical Problems: (1) Atrial Fibrillation (2) Chronic Diastolic Hrt Failure (3) Coronary Atherosclerosis Of [place] Coronary Vessel (4) Hypertension Nos (5) Hypotension (6) Influenza A (7) Mixed Hyperlipidemia (8) NSTEMI (non-ST elevated myocardial infarction) (9) Pneumonia (10) Pre-syncope Family History Patient reports no known family medical history. Social History Smoking Status: Former Smoker Alcohol Use: none Drug Use: heroin Marital Status: single Occupation Status: disabled Current/Historical Medications Scheduled Aspirin (Aspirin Ec), 81 MG PO QAM Atorvastatin (Lipitor), 80 MG PO HS Buspirone Hcl (Buspar), 15 MG PO TID Carvedilol (Coreg), 3.125 MG PO QAM Carvedilol (Coreg), 6.25 MG PO QPM Clopidogrel (Plavix), 75 MG PO QAM Cyclobenzaprine Hcl (Flexeril), 10 MG PO BID Digoxin (Digoxin), 0.125 MG PO QAM Fluticasone Prop/Salmeterol (Advair Diskus 250/50 60 Dose), 1 PUFF INH BID Furosemide (Furosemide), 40 MG PO DAILY Ipratropium-Albuterol (Combivent Respimat), 1 PUFF INH QID Loratadine (Claritin), 10 MG PO DAILY Midodrine Hcl (Midodrine Hcl), 5 MG PO TID Mirtazapine Soltab (Remeron Soltab), 60 MG PO HS Nortriptyline (Pamelor), 25 MG PO HS Pantoprazole (Pantoprazole Sodium), 40 MG PO DAILY Ranitidine (Zantac), 150 MG PO BID Sertraline (Zoloft), 50 MG PO HS Tiotropium Welcome (Spiriva Handihaler), 1 CAP INH QPM Warfarin Sod (Jantoven), 3 MG PO 3XWK Warfarin Sod (Jantoven), 2.5 MG PO 4XWK Scheduled PRN Albuterol Hfa (Ventolin Hfa), 2 PUFFS INH Q6H PRN for Shortness of Breath Oxycodone/Acetaminophen 10MG/325MG (Percocet 10MG/325MG), 1 TAB PO TID PRN for Pain Polyethylene (Polyethylene Glycol 3350), 17 GM PO DAILY PRN for Constipation Spironolactone (Spironolactone), 25 MG PO DAILY PRN for FLUID RETENTION Triamcinolone Acet (Triamcinolone Acetonide), 1 APPLN TD UD PRN for Itching Physical Exam Vital Signs Date Time Temp Pulse Resp B/P (MAP) Pulse Ox O2 Delivery O2 Flow Rate FiO2 09/13/17 17:34 106 20 121/100 93 Nasal Cannula 2.0 09/13/17 16:27 105 20 107/90 93 Nasal Cannula 2.0 09/13/17 14:12 94 Nasal Cannula 1.0 09/13/17 14:12 88 Room Air 09/13/17 14:06 106 20 116/80 94 Nasal Cannula 1.0 09/13/17 12:46 95 Room Air 09/13/17 12:12 111 09/13/17 12:11 95 Room Air 09/13/17 12:05 36.8 114 26 128/100 95 Room Air Physical Exam GENERAL: Patient is chronically unwell and anxious appearing and in moderate distress. EYES: No scleral icterus, unremarkable pupils. ENT: Mucous membranes dry, no nasal congestion. NECK: No masses appreciated, no meningismus, trachea is midline. RESPIRATORY: Mild dyspnea. Clear to auscultation and equal bilaterally. No wheeze, no rhonchi. CARDIOVASCULAR: Tachycardic, Regular. No murmurs, rubs, gallops appreciated. CHEST: TTP over right lower ribs, equal rise, no other TTP GASTROINTESTINAL: Abdomen soft, Mild RUQ TTP, no peritonitis. Bowel sounds positive. No masses appreciated. BACK: Mild TTP over lower lumbar spine, no step-offs. TTP over left CVA area. EXTREMITIES: Mild swelling bilateral ankles, no calf ttp, normal motion all extremities, no cyanosis NEUROLOGIC: Alert and oriented, no acute motor or sensory deficits, no focal weakness, cranial nerves grossly intact. SKIN: Bruising right upper flank wrapping from back to mid upper abdomen. No rash, no jaundice, no diaphoresis. Medical Decision & Procedures Laboratory Results 09/13/17 11:40 Red Blood Count 3.98, Mean Corpuscular Volume 80.7, Mean Corpuscular Hemoglobin 24.9, Mean Corpuscular Hemoglobin Concent 30.8, Mean Platelet Volume 10.1, Neutrophils (%) (Auto) 65.4, Lymphocytes (%) (Auto) 17.5, Monocytes (%) (Auto) 15.5, Eosinophils (%) (Auto) 0.8, Basophils (%) (Auto) 0.5, Neutrophils # (Auto ) 3.92, Lymphocytes # (Auto) 1.05, Monocytes # (Auto) 0.93, Eosinophils # (Auto ) 0.05, Basophils # (Auto) 0.03 09/13/17 11:40 Test 09/13/17 11:40 09/13/17 12:23 09/13/17 12:42 09/13/17 15:18 White Blood Count 6.00 K/uL (4.8-10.8) Red Blood Count 3.98 M/uL (4.7-6.1) Hemoglobin 9.9 g/dL (14.0-18.0) Hematocrit 32.1 % (42-52) Mean Corpuscular Volume 80.7 fL (80-100) Mean Corpuscular Hemoglobin 24.9 pg (25-34) Mean Corpuscular Hemoglobin Concent 30.8 g/dl (32-36) Platelet Count 224 K/uL (130-400) Mean Platelet Volume 10.1 fL (7.4-10.4) Neutrophils (%) (Auto) 65.4 % Lymphocytes (%) (Auto) 17.5 % Monocytes (%) (Auto) 15.5 % Eosinophils (%) (Auto) 0.8 % Basophils (%) (Auto) 0.5 % Neutrophils # (Auto) 3.92 K/uL (1.4-6.5) Lymphocytes # (Auto) 1.05 K/uL (1.2-3.4) Monocytes # (Auto) 0.93 K/uL (0.11-0.59) Eosinophils # (Auto) 0.05 K/uL (0-0.5) Basophils # (Auto) 0.03 K/uL (0-0.2) RDW Standard Deviation 60.3 fL (36.4-46.3) RDW Coefficient of Variation 20.2 % (11.5-14.5) Immature Granulocyte % (Auto) 0.3 % Immature Granulocyte # (Auto) 0.02 K/uL (0.00-0.02) Hypochromasia PRESENT Anisocytosis PRESENT Prothrombin Time 26.1 SECONDS (9.0-12.0) Prothromb Time International Ratio 2.5 (0.9-1.1) Activated Partial Thromboplast Time 44.8 SECONDS (21.0-31.0) Partial Thromboplastin Ratio 1.7 Est Creatinine Clear Calc Drug Dose 104.0 ml/min Estimated GFR () 93.5 Estimated GFR (Non- 80.6 BUN/Creatinine Ratio 11.0 (10-20) Calcium Level 8.2 mg/dl (8.5-10.1) Phosphorus Level 2.8 mg/dl (2.5-4.9) Magnesium Level 2.3 mg/dl (1.8-2.4) Total Bilirubin 0.4 mg/dl (0.2-1) Direct Bilirubin 0.1 mg/dl (0-0.2) Aspartate Amino Transf (AST/SGOT) 16 U/L (15-37) Alanine Aminotransferase (ALT/SGPT) 16 U/L (12-78) Alkaline Phosphatase 72 U/L (45-117) Total Creatine Kinase 78 U/L (39-308) Creatine Kinase MB 1.0 ng/ml (0.5-3.6) Creatine Kinase MB Ratio 1.3 (0-3.0) Troponin I < 0.015 ng/ml (0-0.045) Total Protein 7.8 gm/dl (6.4-8.2) Albumin 3.4 gm/dl (3.4-5.0) Lipase 76 U/L (73-393) Digoxin Level 0.5 ng/ml (0.8-2.0) Bedside Hemoglobin 11.6 g/dl (14.0-18.0) Bedside Hematocrit 34 % (42-52) Bedside Sodium 138 mEq/L (135-144) Bedside Potassium 4.0 mEq/L (3.3-5.0) Bedside Chloride 100 mEq/L (101-112) Bedside Total CO2 26 mEq/l (24-31) Anion Gap 17.0 mmol/L (16-25) Bedside Blood Urea Nitrogen 10 mg/dl (7-18) Bedside Creatinine 1.0 mg/dl (0.6-1.3) Bedside Glucose (other) 128 mg/dl (70-99) Bedside Ionized Calcium (Eduardo) 1.08 mmol/l (1.12-1.32) Urine Color YELLOW Urine Appearance CLEAR (CLEAR) Urine pH 6.5 (4.5-7.5) Urine Specific [place] 1.009 (1.000-1.030) Urine Protein NEG (NEG) Urine Glucose (UA) NEG (NEG) Urine Ketones NEG (NEG) Urine Occult Blood NEG (NEG) Urine Nitrite NEG (NEG) Urine Bilirubin NEG (NEG) Urine Urobilinogen NEG (NEG) Urine Leukocyte Esterase NEG (NEG) Urine WBC (Auto) 0 /hpf (0-5) Urine RBC (Auto) 0-4 /hpf (0-4) Urine Hyaline Casts (Auto) 0 /lpf (0-5) Urine Epithelial Cells (Auto) 0-5 /lpf (0-5) Urine Bacteria (Auto) NEG (NEG) Venous Blood pH 7.36 (7.36-7.41) Venous Blood Partial Pressure CO2 45 mmHg (38.0-50.0) Venous Blood Partial Pressure O2 43 mmHg Venous Blood HCO3 25 mmol/L Venous Blood Oxygen Saturation 73.5 % Venous Blood Base Excess -1.1 mEq/L Test 09/13/17 15:24 Bedside Lactic Acid Venous 0.89 mmol/L (0.90-1.70) Medications Administered Medications (Trade) Dose Ordered Sig/Mariama Route Start Time Stop Time Status Last Admin Dose Admin Diphenhydramine HCl (Benadryl Inj) 50 mg NOW STAT IV 09/13/17 12:14 09/13/17 12:18 DC 09/13/17 12:35 50 MG Methylprednisolone Sodium Succinate (Solu-Medrol IV) 125 mg NOW STAT IV 09/13/17 12:14 09/13/17 12:18 DC 09/13/17 12:36 125 MG Hydromorphone HCl (Dilaudid Inj) 1 mg NOW STAT IV 09/13/17 12:14 09/13/17 12:18 DC 09/13/17 12:36 1 MG Ondansetron HCl (Zofran Inj) 4 mg NOW STAT IV 09/13/17 12:59 09/13/17 13:00 DC 09/13/17 13:12 4 MG Fentanyl Citrate (Fentanyl Inj) 50 mcg NOW STAT IV 09/13/17 14:09 09/13/17 14:10 DC 09/13/17 14:16 50 MCG Levofloxacin (Levaquin / D5W) 750 mg NOW STAT IV 09/13/17 15:07 09/13/17 15:09 DC 09/13/17 15:56 750 MG Sodium Chloride 500 ml @ 999 mls/hr Q31M STAT IV 09/13/17 15:42 09/13/17 16:12 DC 09/13/17 15:58 999 MLS/HR ECG Per My Interpretation Indication: SOB/dyspnea Rate (beats per minute): 114 Rhythm: sinus tachycardia Findings: no acute ischemic change Comparison ECG Date: 06-09-17 Similar with mild increase in rate Change: no significant change Medical Decision Differential: Sepsis, Infectious (UTI/Pneumonia/Meningitis/etc), Metabolic/ Electrolyte Abnormality, Cardiac, Dehydration, Anemia, Hepatic, Endocrine, Toxicologic, Neurologic, amongst other pathologies entertained. 56 yr old male with complex cardiac history arrives with complaint of shortness of breath over last few days and severe cough. Admits cough syncope last night resulting in right flank injury. He is on Coumadin thus given extensive bruising I felt imaging c/a/p indicated, though patient is adamant no headache and declines/refused CT Head. Sats mildly low and a bit tachy thus after feeling this is not CHF exacerbation I went ahead with some IV fluids. CTs without acute traumatic injury requiring trauma center, but do reveal bilateral lower lobe infiltrates. While no fever nor WBC elevation, must assume these are related to infectious, especially given left worse than right and there is no evidence of trauma to left side. He does not appear in CHF, in fact he looks quite dry on examination. Given IV narcotics for pain, Benadryl/ solumedrol for pre IV dye treatment. Levaquin given for bilateral pneumonia. As hypoxic can not d/c at this time. Head Trauma GCS Score: 15 Medication Reconcilliation Current Medication List: was personally reviewed by me Blood Pressure Screening Patient's blood pressure: Normal blood pressure Impression Primary Impression: Bilateral pneumonia Additional Impressions: Traumatic ecchymosis of flank Near syncope Hypoxia Dehydration Departure Information Referrals Hilda Marie M.D. (PCP) Patient Instructions My [facility] Problem Qualifiers
[2017-09-13 12:27] LABS: BASO % 0.5 %; BASO ABS # 0.03 K/uL (0-0.2); EOS % 0.8 %; EOS ABS # 0.05 K/uL (0-0.5); HEMATOCRIT 32.1 % (42-52); HEMOGLOBIN 9.9 g/dL (14.0-18.0); IG# 0.02 K/uL (0.00-0.02); LYMPH % 17.5 %; LYMPH ABS # 1.05 K/uL (1.2-3.4); MEAN CELL VOLUME 80.7 fL (80-100); MEAN CORPUSCULAR HEMOGLOBIN 24.9 pg (25-34); MEAN CORPUSCULAR HGB CONC 30.8 g/dl (32-36); MEAN PLATELET VOLUME 10.1 fL (7.4-10.4); MONO % 15.5 %; MONO ABS # 0.93 K/uL (0.11-0.59); NEUT % 65.4 %; NEUT ABS # 3.92 K/uL (1.4-6.5); PLATELET COUNT 224 K/uL (130-400); RED CELL DISTRIBUTION WIDTH CV 20.2 % (11.5-14.5); RED CELL DISTRIBUTION WIDTH SD 60.3 fL (36.4-46.3)
[2017-09-13 12:36] LABS: INR 2.5 (0.9-1.1); PTT PATIENT 44.8 SECONDS (21.0-31.0)
[2017-09-13 12:47] LABS: ALBUMIN 3.4 gm/dl (3.4-5.0); ALT/SGPT 16 U/L (12-78); AST/SGOT 16 U/L (15-37); BLOOD UREA NITROGEN 11 mg/dl (7-18); CALCIUM 8.2 mg/dl (8.5-10.1); CARBON DIOXIDE 29 mmol/L (21-32); CREATININE 1.02 mg/dl (0.60-1.40); GLUCOSE 114 mg/dl (70-99); LIPASE 76 U/L (73-393); POTASSIUM 3.7 mmol/L (3.5-5.1); SODIUM 135 mmol/L (136-145)
[2017-09-13] MEDS ORDERED: PANT40TA2 PO (12:49)
[2017-09-13] MEDS ORDERED: WARF3TAB6 PO (12:49)
[2017-09-13] MEDS ORDERED: MRLP527 PO (12:49)
[2017-09-13] MEDS ORDERED: WARF2.5T8 PO (12:49)
[2017-09-13] MEDS ORDERED: MIDO5TAB PO (12:49)
[2017-09-13] MEDS ORDERED: CARV3.122 PO (12:49)
[2017-09-13] MEDS ORDERED: SPR25 PO (12:49)
[2017-09-13] MEDS ORDERED: TRMO180 TD (12:49)
[2017-09-13] MEDS ORDERED: LSX40 PO (12:49)
[2017-09-13] MEDS ORDERED: CARV3.12 PO (12:49)
[2017-09-13 12:50] LABS: ALKALINE PHOSPHATASE 72 U/L (45-117); PHOSPHORUS 2.8 mg/dl (2.5-4.9); TOTAL PROTEIN 7.8 gm/dl (6.4-8.2)
[2017-09-13 12:51] LABS: ISTAT IONIZED CALCIUM 1.08 mmol/l (1.12-1.32)
[2017-09-13] MEDS ORDERED: ONDANSETRON INJ 2 MG/ML 2 ML VIAL IV STA (12:59)
[2017-09-13] MEDS ORDERED: FENTANYL CITRATE INJ 50 MCG/1 ML 2 ML VIAL IV STA (14:09)
[2017-09-13] MEDS ORDERED: OPTIRAY 320 IV PRN (14:15)
--- NOTE | 2017-09-13 14:30 | DIAGNOSTIC IMAGING REPORT ---
(CHEST FOR PE) ANGIO WITH CT DOSE: 1586.83 mGy.cm HISTORY: Chest pain dyspnoea. Trauma. TECHNIQUE: Multiaxial CT images of the chest were performed following the intravenous administration of contrast to evaluate the pulmonary arteries. Maximal intensity projection images were also obtained. A dose lowering technique was utilized adhering to the principles of ALARA. COMPARISON STUDY: 06/09/2017 FINDINGS: Thoracic aorta is unremarkable. The pulmonary vascular tear enhances appropriately. There are no significant filling defects. There are findings of mild left and to a lesser extent right basilar parenchymal infiltrative change versus contusions. Limited evaluation of the osseous structures shows no acute abnormality. There are several old rib fractures bilaterally. IMPRESSION: 1. No evidence for pulmonary embolus. 2. Mild bibasilar parenchymal infiltrative versus contusion-type change. The above report was generated using voice recognition software. It may contain grammatical, syntax or spelling errors. Electronically signed by: Yaron Lott M.D. 09/13/2017 2:29 PM Dictated Date/Time: 09/13/2017 2:26 PM
--- NOTE | 2017-09-13 14:36 | DIAGNOSTIC IMAGING REPORT ---
ABD/PELVIS IV CONTRAST ONLY CT DOSE: HISTORY: Trauma. Pain. syncope, right chest/abdo trauma TECHNIQUE: Multiaxial CT images of the abdomen and pelvis were performed following the use of intravenous contrast. A dose lowering technique was utilized adhering to the principles of ALARA. COMPARISON STUDY: 05/22/2017 FINDINGS: Several old right and to a lesser extent left rib fractures. These are healed. Mild bibasilar parenchymal infiltrative versus contusion-type change. Liver is uniform. Gallbladder is negative for distention. Kidneys enhance appropriately. Pancreas shows moderate fatty replacement. The bowel pattern is nonobstructive. There are findings of mild aneurysmal dilatation of the proximal iliac arteries. On the right maximum diameters 3 cm these are partially thrombus filled. Bladder is midline. Bowel pattern within the abdomen and pelvis is nonobstructive. And on the left 3.1 cm. IMPRESSION: 1. No acute process of the abdomen or pelvis. 2. Nonobstructive bowel pattern. 3. 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 4. Several old healed rib fractures bilaterally. The above report was generated using voice recognition software. It may contain grammatical, syntax or spelling errors. Electronically signed by: Yaron Lott M.D. 09/13/2017 2:35 PM Dictated Date/Time: 09/13/2017 2:30 PM
[2017-09-13] MEDS ORDERED: LEVAQUIN 750MG / 150ML D5W IV STA (15:07)
[2017-09-13] MEDS ORDERED: SODIUM CHLORIDE 0.9% 500ML 500 ML IV STA (15:42)
[2017-09-13] MEDS ORDERED: LIDODERM (LIDOCAINE) PATCH 5% TD STA (16:41)
[2017-09-13] MEDS ORDERED: ACETAMINOPHEN 325 MG TAB PO PRN (16:45)
[2017-09-13] MEDS ORDERED: ONDANSETRON INJ 2 MG/ML 2 ML VIAL IV PRN (16:45)
[2017-09-13] MEDS ORDERED: ZOLPIDEM TARTRATE 5 MG TAB PO PRN (16:45)
[2017-09-13] MEDS ORDERED: ALBUTEROL HFA 8 GM INHALER INH PRN (16:45)
[2017-09-13] MEDS ORDERED: SPIRONOLACTONE 25 MG TAB PO PRN (16:45)
[2017-09-13] MEDS ORDERED: ALUMINUM/MAGNESIUM/SIMETH (MAALOX MAX) 30 ML UDC PO PRN (16:45)
[2017-09-13] MEDS ORDERED: MAGNESIUM HYDROXIDE SUSP 30 ML UDC PO PRN (16:45)
--- NOTE | 2017-09-13 17:14 | History and Physical ---
History & Physical Date & Time of Service: Sep 13, 2017 at 17:02 Chief Complaint: Breathing Difficulty Primary Care Physician: Hilda Marie M.D. History of Present Illness Source: patient 56-year-old man with past medical history of systolic congestive heart failure status post AICD, CAD status post stenting in the past, COPD, paroxysmal atrial fibrillation, history of DVT/PE, DVT, depression, anxiety and orthostatic hypotension. Patient said that lately he has been taking his Lasix regularly and he lost 15 pounds of fluids. Is feeling good his breathing good until yesterday. Yesterday he said he started coughing productive cough and fell twice on the floor. He thinks is full secondary to severe cough and lightheadedness. He landed on his right side, did not hit his head. He never lost consciousness. Presented to the ED for evaluation and was found to have significant hypoxia with oxygen saturation 88%. CT angiogram showed no pulmonary embolism but he had bilateral lower lobes infiltrate versus contusion. He denies any fever or chills. Patient will be admitted for further evaluation. Admits to having obstructive sleep apnea but did not tolerate BiPAP or CPAP. Does not smoke, quit drinking 3 years ago. Past Medical/Surgical History Medical Problems: (1) Abdominal aortic aneurysm (2) Anxiety (3) Atrial Fibrillation (4) Chest pain (5) Chronic Diastolic Hrt Failure (6) Coronary Atherosclerosis Of [place] Coronary Vessel (7) Elevated INR (8) Hypertension Nos (9) Hypotension (10) Influenza A (11) Influenza A (12) Left leg cellulitis (13) Mixed Hyperlipidemia (14) Non-STEMI (non-ST elevated myocardial infarction) (15) NSTEMI (non-ST elevated myocardial infarction) (16) Pneumonia (17) Pre-syncope (18) Shortness of breath (19) Syncope Family History Patient reports no known family medical history. Social History Smoking Status: Former Smoker Drug Use: heroin Marital Status: single Occupational Status: disabled Immunizations History of Influenza Vaccine: Unknown History of Tetanus Vaccine?: Unknown History of Pneumococcal: Unknown History of Hepatitis B Vaccine: Unknown Allergies Coded Allergies: Heparin (Unverified Allergy, Severe, Swells up., 09/13/17) Reported by PT, swells up from Heparin injections. Iodinated Diagnostic Agents (Verified Allergy, Intermediate, swelling, hives, 09/13/17) Ibuprofen (Verified Adverse Reaction, Mild, nausea vomiting, 09/13/17) Home Medications Scheduled Aspirin (Aspirin Ec), 81 MG PO QAM Atorvastatin (Lipitor), 80 MG PO HS Buspirone Hcl (Buspar), 15 MG PO TID Carvedilol (Coreg), 3.125 MG PO QAM Carvedilol (Coreg), 6.25 MG PO QPM Clopidogrel (Plavix), 75 MG PO QAM Cyclobenzaprine Hcl (Flexeril), 10 MG PO BID Digoxin (Digoxin), 0.125 MG PO QAM Fluticasone Prop/Salmeterol (Advair Diskus 250/50 60 Dose), 1 PUFF INH BID Furosemide (Furosemide), 40 MG PO DAILY Ipratropium-Albuterol (Combivent Respimat), 1 PUFF INH QID Loratadine (Claritin), 10 MG PO DAILY Midodrine Hcl (Midodrine Hcl), 5 MG PO TID Mirtazapine Soltab (Remeron Soltab), 60 MG PO HS Nortriptyline (Pamelor), 25 MG PO HS Pantoprazole (Pantoprazole Sodium), 40 MG PO DAILY Ranitidine (Zantac), 150 MG PO BID Sertraline (Zoloft), 50 MG PO HS Tiotropium [place] (Spiriva Handihaler), 1 CAP INH QPM Warfarin Sod (Jantoven), 3 MG PO 3XWK Warfarin Sod (Jantoven), 2.5 MG PO 4XWK Scheduled PRN Albuterol Hfa (Ventolin Hfa), 2 PUFFS INH Q6H PRN for Shortness of Breath Oxycodone/Acetaminophen 10MG/325MG (Percocet 10MG/325MG), 1 TAB PO TID PRN for Pain Polyethylene (Polyethylene Glycol 3350), 17 GM PO DAILY PRN for Constipation Spironolactone (Spironolactone), 25 MG PO DAILY PRN for FLUID RETENTION Triamcinolone Acet (Triamcinolone Acetonide), 1 APPLN TD UD PRN for Itching Review of Systems Review of system Constitutional: No fever / no chills / no sweats /feeling tired and fatigued Eyes: no blurring of vision / no eye pain / no discharge / no redness ENT: no hearing loss / no epistaxis /no swallowing problems Respiratory: Significant cough shortness of breath/ no hemoptysis Cardiovascular: no Chest pain / no lower extremity edema / no palpitation Abdomen: no pain / no nausea / no vomiting / no constipation Musculoskeletal: no joint pain / no muscle pain / no joint swelling Genitourinary: no dysuria / no incontinence / no urinary retention Neurologic: no focal weakness / no numbness/tingling / no ataxia Psychiatric: no depression symptoms / no anxiety / no insomnia Endocrine: no excessive thirst / no excessive urination Hematologic: no abnormal bleeding / no bruising / no LN swelling Skin: No rash / no pallor Physical Exam Vital Signs Date Time Temp Pulse Resp B/P (MAP) Pulse Ox O2 Delivery O2 Flow Rate FiO2 09/13/17 16:27 105 20 107/90 93 Nasal Cannula 2.0 09/13/17 14:12 94 Nasal Cannula 1.0 09/13/17 14:12 88 Room Air 09/13/17 14:06 106 20 116/80 94 Nasal Cannula 1.0 09/13/17 12:46 95 Room Air 09/13/17 12:12 111 09/13/17 12:11 95 Room Air 09/13/17 12:05 36.8 114 26 128/100 95 Room Air Physical examination General patient appears to be comfortable, not in acute distress HEENT: Atraumatic , normocephalic /no jaundice /no pallor /anicteric /no dry mucous membrane /normal external ear inspection Neck: Supple /no swelling /central trach Heart: S1/S2 normal/regular rate and rhythm/no gallop /no rub /no murmur Lungs: Bilateral basal rhonchi, decreased chest wall expansion no wheezing/no use of accessory muscles of respiration Abdomen: Soft/nontender/no guarding/no rebound/no organomegaly/no pulsatile mass Musculoskeletal: No swelling/no edema/no tenderness/normal range of motion Neuro exam: Awake alert oriented 3/cranial nerves II through XII appear to be intact/sensation intact/moves all extremities/no abnormal movements Psychiatric evaluation: No depressed mood/normal affect Skin: No rash on exposed skin area/no erythema Extremity: Normal pulse/no pitting edema/no clubbing or cyanosis Endocrine/lymphatic: No obvious lymphadenopathy /no lymphedema Diagnostics Laboratory Results Results Past 24 Hours Test 09/13/17 11:40 09/13/17 12:23 09/13/17 12:42 09/13/17 15:18 Range/Units White Blood Count 6.00 4.8-10.8 K/uL Red Blood Count 3.98 4.7-6.1 M/uL Hemoglobin 9.9 14.0-18.0 g/dL Hematocrit 32.1 42-52 % Mean Corpuscular Volume 80.7 80-100 fL Mean Corpuscular Hemoglobin 24.9 25-34 pg Mean Corpuscular Hemoglobin Concent 30.8 32-36 g/dl Platelet Count 224 130-400 K/uL Mean Platelet Volume 10.1 7.4-10.4 fL Neutrophils (%) (Auto) 65.4 % Lymphocytes (%) (Auto) 17.5 % Monocytes (%) (Auto) 15.5 % Eosinophils (%) (Auto) 0.8 % Basophils (%) (Auto) 0.5 % Neutrophils # (Auto) 3.92 1.4-6.5 K/uL Lymphocytes # (Auto) 1.05 1.2-3.4 K/uL Monocytes # (Auto) 0.93 0.11-0.59 K/uL Eosinophils # (Auto) 0.05 0-0.5 K/uL Basophils # (Auto) 0.03 0-0.2 K/uL RDW Standard Deviation 60.3 36.4-46.3 fL RDW Coefficient of Variation 20.2 11.5-14.5 % Immature Granulocyte % (Auto) 0.3 % Immature Granulocyte # (Auto) 0.02 0.00-0.02 K/uL Hypochromasia PRESENT Anisocytosis PRESENT Prothrombin Time 26.1 9.0-12.0 SECONDS Prothromb Time International Ratio 2.5 0.9-1.1 Activated Partial Thromboplast Time 44.8 21.0-31.0 SECONDS Partial Thromboplastin Ratio 1.7 Sodium Level 135 136-145 mmol/L Potassium Level 3.7 3.5-5.1 mmol/L Chloride Level 104 98-107 mmol/L Carbon Dioxide Level 29 21-32 mmol/L Anion Gap 2.0 17.0 16-25 mmol/L Blood Urea Nitrogen 11 7-18 mg/dl Creatinine 1.02 0.60-1.40 mg/dl Est Creatinine Clear Calc Drug Dose 104.0 ml/min Estimated GFR () 93.5 Estimated GFR (Non- 80.6 BUN/Creatinine Ratio 11.0 10-20 Random Glucose 114 70-99 mg/dl Calcium Level 8.2 8.5-10.1 mg/dl Phosphorus Level 2.8 2.5-4.9 mg/dl Magnesium Level 2.3 1.8-2.4 mg/dl Total Bilirubin 0.4 0.2-1 mg/dl Direct Bilirubin 0.1 0-0.2 mg/dl Aspartate Amino Transf (AST/SGOT) 16 15-37 U/L Alanine Aminotransferase (ALT/SGPT) 16 12-78 U/L Alkaline Phosphatase 72 45-117 U/L Total Creatine Kinase 78 39-308 U/L Creatine Kinase MB 1.0 0.5-3.6 ng/ml Creatine Kinase MB Ratio 1.3 0-3.0 Troponin I < 0.015 0-0.045 ng/ml Total Protein 7.8 6.4-8.2 gm/dl Albumin 3.4 3.4-5.0 gm/dl Lipase 76 73-393 U/L Digoxin Level 0.5 0.8-2.0 ng/ml Bedside Hemoglobin 11.6 14.0-18.0 g/dl Bedside Hematocrit 34 42-52 % Bedside Sodium 138 135-144 mEq/L Bedside Potassium 4.0 3.3-5.0 mEq/L Bedside Chloride 100 101-112 mEq/L Bedside Total CO2 26 24-31 mEq/l Bedside Blood Urea Nitrogen 10 7-18 mg/dl Bedside Creatinine 1.0 0.6-1.3 mg/dl Bedside Glucose (other) 128 70-99 mg/dl Bedside Ionized Calcium (Eduardo) 1.08 1.12-1.32 mmol/l Urine Color YELLOW Urine Appearance CLEAR CLEAR Urine pH 6.5 4.5-7.5 Urine Specific [place] 1.009 1.000-1.030 Urine Protein NEG NEG Urine Glucose (UA) NEG NEG Urine Ketones NEG NEG Urine Occult Blood NEG NEG Urine Nitrite NEG NEG Urine Bilirubin NEG NEG Urine Urobilinogen NEG NEG Urine Leukocyte Esterase NEG NEG Urine WBC (Auto) 0 0-5 /hpf Urine RBC (Auto) 0-4 0-4 /hpf Urine Hyaline Casts (Auto) 0 0-5 /lpf Urine Epithelial Cells (Auto) 0-5 0-5 /lpf Urine Bacteria (Auto) NEG NEG Venous Blood pH 7.36 7.36-7.41 Venous Blood Partial Pressure CO2 45 38.0-50.0 mmHg Venous Blood Partial Pressure O2 43 mmHg Venous Blood HCO3 25 mmol/L Venous Blood Oxygen Saturation 73.5 % Venous Blood Base Excess -1.1 mEq/L Test 09/13/17 15:24 Range/Units Bedside Lactic Acid Venous 0.89 0.90-1.70 mmol/L Microbiology Results 09/13/17 Blood Culture, Received Pending 09/13/17 Blood Culture, Received Pending Impression Assessment and Plan 56-year-old man with past medical history of systolic congestive heart failure status post AICD, CAD status post stenting in the past, COPD, paroxysmal atrial fibrillation, history of DVT/PE, DVT, depression, anxiety and orthostatic hypotension. Presented with acute hypoxic respiratory failure secondary to bilateral lower lobe pneumonia, multiple falls, presyncope and possible contusions. Assessment/plan Acute hypoxic respiratory failure Bilateral basal pneumonia, could be atelectasis secondary to rib contusions Presyncope secondary to hypoxemia and hypotension Admit patient to telemetry Start patient on levofloxacin Obtain sputum culture Urine Legionella CAD Chronic systolic CHF status post AICD, currently not in exacerbation Continue Lipitor, continue Lasix 40 mg daily Decrease Coreg to 3.125 twice a day from 3.125 and 6.25 Decrease Aldactone from 25 mg daily to 12.5 due to the hypotension COPD without significant exacerbation Start patient on low-dose Solu-Medrol Start patient on bronchodilators Atrial fibrillation/DVT/PE in the past Continue Coumadin check INR Fall risk Likely due to hypoxia and hypotension Physical therapy and patient therapy evaluation Continue midodrine to avoid hypotension Currently benefit of anticoagulation seems to be outweighs risks especially if his fall risk will be controlled Depression/anxiety Continue home meds Resuscitation Status VTE Prophylaxis Will order VTE Prophylaxis: Yes
[2017-09-13 18:01] VITALS: BP 118/82; PULSE 105; TEMP 36.6; O2SAT 95; Ht 188 cm; Wt 113.4 kg
[2017-09-13] MEDS ORDERED: WARFARIN SOD 2.5 MG TAB PO SCH (19:00)
[2017-09-13 19:23] VITALS: BP 98/70; PULSE 107; TEMP 36.8; O2SAT 90
[2017-09-13] MEDS: OXYCODONE/ACETAMINOPHEN 10/325MG TAB PO PRN (19:41)
[2017-09-13] MEDS: MIDODRINE 2.5 MG TAB PO SCH (19:58)
[2017-09-13] MEDS: LACTOBACILLUS ACIDOPHILUS (FLORANEX) TAB PO SCH (19:59)
[2017-09-13 20:00] VITALS: O2SAT 92
[2017-09-13] MEDS: METHYLPREDNISOLONE IV 60 MG in SYRINGE 0 ML IV SCH (20:00)
[2017-09-13] MEDS: LEVALBUTEROL 0.63MG/3 ML NEB INH SCH (20:22)
[2017-09-13] MEDS: IPRATROPIUM BROMIDE NEB SOLN 0.02% 2.5 ML VIAL INH SCH (20:22)
[2017-09-13] MEDS: BUDESONIDE 0.5 MG/2 ML VIAL (PULMICORT) INH SCH (20:22)
[2017-09-13 20:27] VITALS: PULSE 89; O2SAT 92
[2017-09-13] MEDS ORDERED: LEVALBUTEROL/IPRATROPIUM NEB INH SCH (21:00)
[2017-09-13] MEDS: TIOTROPIUM BROMIDE 5 PUFF/90 MCG INH INH SCH (21:00)
[2017-09-13] MEDS: ZOLPIDEM TARTRATE 5 MG TAB PO PRN (21:06)
[2017-09-13] MEDS: FLUTICASONE/SALMETEROL 250/50 (ADVAIR) 14 PUFF/1 INHALER INH SCH (21:07)
[2017-09-13] MEDS: SERTRALINE HCL 50 MG TAB PO SCH (21:10)
[2017-09-13] MEDS: RANITIDINE HCL 150 MG TAB PO SCH (21:11)
[2017-09-13] MEDS: ATORVASTATIN 40 MG TAB PO SCH (21:12)
[2017-09-13] MEDS: CYCLOBENZAPRINE HCL 10 MG TAB PO SCH (21:12)
[2017-09-13] MEDS: NORTRIPTYLINE HCL 25 MG CAP PO SCH (21:14)
[2017-09-13] MEDS: BusPIRone 15 MG TAB PO SCH (21:14)
[2017-09-13] MEDS: MIRTAZAPINE SOLTAB 15 MG PO SCH (21:15)
[2017-09-13] MEDS: CARVEDILOL 3.125 MG TAB PO SCH (21:16)
[2017-09-13 23:36] VITALS: BP 114/83; PULSE 104; TEMP 36.7; O2SAT 90
[2017-09-14] VITALS (13 sets, daily range): BP systolic 109–128; BP diastolic 78–89; PULSE 93–116; TEMP 36.4–36.7; O2SAT 90–94
[2017-09-14] MEDS: METHYLPREDNISOLONE IV 60 MG in SYRINGE 0 ML IV SCH ×4 (00:24→17:13)
[2017-09-14] MEDS: IPRATROPIUM BROMIDE NEB SOLN 0.02% 2.5 ML VIAL INH SCH ×4 (01:52→19:01)
[2017-09-14] MEDS: LEVALBUTEROL 0.63MG/3 ML NEB INH SCH ×4 (01:53→19:01)
[2017-09-14 05:40] LABS: HEMATOCRIT 32.5 % (42-52); HEMOGLOBIN 9.9 g/dL (14.0-18.0); IG# 0.01 K/uL (0.00-0.02); LYMPH % 16.7 %; LYMPH ABS # 0.48 K/uL (1.2-3.4); MEAN CORPUSCULAR HEMOGLOBIN 24.7 pg (25-34); MEAN CORPUSCULAR HGB CONC 30.5 g/dl (32-36); MEAN PLATELET VOLUME 9.4 fL (7.4-10.4); MONO % 5.9 %; MONO ABS # 0.17 K/uL (0.11-0.59); NEUT % 77.1 %; NEUT ABS # 2.21 K/uL (1.4-6.5); PLATELET COUNT 208 K/uL (130-400); RED CELL DISTRIBUTION WIDTH CV 20.3 % (11.5-14.5); RED CELL DISTRIBUTION WIDTH SD 60.1 fL (36.4-46.3); WHITE BLOOD COUNT 2.87 K/uL (4.8-10.8)
[2017-09-14 05:57] LABS: INR 3.1 (0.9-1.1)
[2017-09-14 06:09] LABS: ALBUMIN 3.2 gm/dl (3.4-5.0); CALCIUM 8.5 mg/dl (8.5-10.1); CREATININE 0.97 mg/dl (0.60-1.40); POTASSIUM 4.2 mmol/L (3.5-5.1)
[2017-09-14 06:12] LABS: TOTAL PROTEIN 7.5 gm/dl (6.4-8.2)
[2017-09-14] MEDS: OXYCODONE/ACETAMINOPHEN 10/325MG TAB PO PRN ×2 (06:13→13:31)
[2017-09-14] MEDS: BUDESONIDE 0.5 MG/2 ML VIAL (PULMICORT) INH SCH ×2 (07:17→18:59)
[2017-09-14] MEDS: LACTOBACILLUS ACIDOPHILUS (FLORANEX) TAB PO SCH ×3 (07:46→16:20)
[2017-09-14] MEDS: BusPIRone 15 MG TAB PO SCH ×3 (07:47→21:21)
[2017-09-14] MEDS: MIDODRINE 2.5 MG TAB PO SCH ×3 (07:47→16:22)
[2017-09-14] MEDS: FLUTICASONE/SALMETEROL 250/50 (ADVAIR) 14 PUFF/1 INHALER INH SCH ×2 (07:47→21:20)
[2017-09-14] MEDS: FUROSEMIDE 40 MG TAB PO SCH (07:48)
[2017-09-14] MEDS: CLOPIDOGREL BISULFATE 75 MG TAB PO SCH (07:48)
[2017-09-14] MEDS: CYCLOBENZAPRINE HCL 10 MG TAB PO SCH ×2 (07:48→21:24)
[2017-09-14] MEDS: CARVEDILOL 3.125 MG TAB PO SCH ×2 (07:48→21:24)
[2017-09-14] MEDS: ASPIRIN 81 MG ECTAB PO SCH (07:48)
[2017-09-14] MEDS: PANTOprazole SOD 40 MG TAB PO SCH (07:49)
[2017-09-14] MEDS: RANITIDINE HCL 150 MG TAB PO SCH ×2 (07:49→21:25)
[2017-09-14] MEDS: LIDODERM (LIDOCAINE) PATCH 5% TD SCH (07:49)
[2017-09-14] MEDS: POLYETHYLENE (MIRALAX) 17 GM PACK PO PRN (07:53)
[2017-09-14 09:28] LABS: INFLUENZA B ANTIGEN Neg for Influ B (NEG)
--- NOTE | 2017-09-14 13:32 | Hospitalist Progress Note ---
Hospitalist Progress Note Date of Service Sep 14, 2017. Subjective Pt evaluation today including: conversation w/ patient Feeling a little bit better today, less short of breath. Is coughing up green sputum and has a bad cough. Is weaned off oxygen. Is requesting that his oxycodone be ordered like he takes it at home which is at 0 600, 1200, and 1800. Telemetry with sinus tachycardia in the 100s-110s, PVCs Constitutional: No fever Abdomen: No diarrhea All Other Systems: Reviewed and Negative Objective Vital Signs Date Time Temp Pulse Resp B/P (MAP) Pulse Ox O2 Delivery O2 Flow Rate FiO2 09/14/17 12:04 36.5 106 16 112/78 (89) 90 09/14/17 12:00 Room Air 09/14/17 08:00 Room Air 09/14/17 07:53 36.5 114 18 119/89 (99) 91 Room Air 09/14/17 07:17 108 16 93 Room Air 09/14/17 04:31 36.4 116 18 128/89 (102) 90 Nasal Cannula 2.5 09/14/17 04:00 93 Nasal Cannula 2.0 09/14/17 01:53 101 16 93 Nasal Cannula 2.0 09/14/17 00:01 92 Nasal Cannula 2.0 09/13/17 23:36 36.7 104 20 114/83 (93) 90 Nasal Cannula 3.5 09/13/17 20:27 89 18 92 Room Air 09/13/17 20:00 92 Room Air 09/13/17 19:23 36.8 107 20 98/70 (79) 90 Room Air 09/13/17 18:01 36.6 105 20 118/82 95 Room Air 09/13/17 17:34 106 20 121/100 93 Nasal Cannula 2.0 09/13/17 16:27 105 20 107/90 93 Nasal Cannula 2.0 09/13/17 14:12 94 Nasal Cannula 1.0 09/13/17 14:12 88 Room Air 09/13/17 14:06 106 20 116/80 94 Nasal Cannula 1.0 Physical Exam General Appearance: WD/WN, no apparent distress Eyes: normal inspection, sclerae normal ENT: hearing grossly normal Neck: trachea midline Respiratory/Chest: no respiratory distress, no accessory muscle use, + crackles (At the bases bilaterally), + wheezing (Faint and scattered) Cardiovascular: regular rate, rhythm, no edema, no murmur Abdomen: normal bowel sounds, non tender, soft, no organomegaly Extremities: normal inspection, no pedal edema, no calf tenderness Neurologic/Psychiatric: alert, normal mood/affect, oriented x 3 Skin: normal color, warm/dry, no rash Laboratory Results Last 24 Hours Test 09/13/17 15:18 09/13/17 15:24 09/13/17 20:09 09/14/17 05:26 Venous Blood pH 7.36 Venous Blood Partial Pressure CO2 45 mmHg Venous Blood Partial Pressure O2 43 mmHg Venous Blood HCO3 25 mmol/L Venous Blood Oxygen Saturation 73.5 % Venous Blood Base Excess -1.1 mEq/L Bedside Lactic Acid Venous 0.89 mmol/L Bedside Glucose 192 mg/dl White Blood Count 2.87 K/uL Red Blood Count 4.01 M/uL Hemoglobin 9.9 g/dL Hematocrit 32.5 % Mean Corpuscular Volume 81.0 fL Mean Corpuscular Hemoglobin 24.7 pg Mean Corpuscular Hemoglobin Concent 30.5 g/dl Platelet Count 208 K/uL Mean Platelet Volume 9.4 fL Neutrophils (%) (Auto) 77.1 % Lymphocytes (%) (Auto) 16.7 % Monocytes (%) (Auto) 5.9 % Eosinophils (%) (Auto) 0.0 % Basophils (%) (Auto) 0.0 % Neutrophils # (Auto) 2.21 K/uL Lymphocytes # (Auto) 0.48 K/uL Monocytes # (Auto) 0.17 K/uL Eosinophils # (Auto) 0.00 K/uL Basophils # (Auto) 0.00 K/uL RDW Standard Deviation 60.1 fL RDW Coefficient of Variation 20.3 % Immature Granulocyte % (Auto) 0.3 % Immature Granulocyte # (Auto) 0.01 K/uL Large Platelets 1+ Anisocytosis PRESENT Prothrombin Time 32.3 SECONDS Prothromb Time International Ratio 3.1 Sodium Level 135 mmol/L Potassium Level 4.2 mmol/L Chloride Level 105 mmol/L Carbon Dioxide Level 28 mmol/L Anion Gap 2.0 mmol/L Blood Urea Nitrogen 13 mg/dl Creatinine 0.97 mg/dl Est Creatinine Clear Calc Drug Dose 110.5 ml/min Estimated GFR () 99.3 Estimated GFR (Non- 85.7 BUN/Creatinine Ratio 13.4 Random Glucose 146 mg/dl Lactic Acid Level 1.2 mmol/L Calcium Level 8.5 mg/dl Magnesium Level 2.4 mg/dl Total Bilirubin 0.4 mg/dl Aspartate Amino Transf (AST/SGOT) 15 U/L Alanine Aminotransferase (ALT/SGPT) 16 U/L Alkaline Phosphatase 64 U/L Total Protein 7.5 gm/dl Albumin 3.2 gm/dl Globulin 4.3 gm/dl Albumin/Globulin Ratio 0.7 Test 09/14/17 05:28 09/14/17 07:15 09/14/17 09:00 09/14/17 11:35 Iron Level 17 mcg/dl Total Iron Binding Capacity 435 mcg/dl Transferrin 338 mg/dl Transferrin % Saturation 4 % Ferritin 20.8 ng/ml Bedside Glucose 164 mg/dl 184 mg/dl Influenza Type A Antigen Neg for Influ A Influenza Type B Antigen Neg for Influ B Assessment and Plan Mr. Morgan is a 56-year-old man with a complex past medical history including ischemic cardiomyopathy and ventricular tachycardia status post dual-chamber ICD , coronary artery disease post RCA PCI with 2 JUVE 04/16/2017, peripheral arterial disease with known lower extremity arterial aneurysm status post endovascular stenting and [id number] bypass surgery, prior recurrent VTE, paroxysmal atrial fibrillation, long-term anticoagulation, orthostatic hypotension, anemia, questionable seizure disorder, and tobacco abuse with severe COPD who presents with acute hypoxic respiratory failure secondary to bilateral lower lobe pneumonia, multiple falls, presyncope with orthostatic hypotension. Acute hypoxic respiratory failure/acute exacerbation of COPD-now weaned off oxygen Bilateral basal pneumonia-with productive sputum and cough for several days Presyncope secondary to hypoxemia and orthostatic hypotension-improved blood pressures with receiving IV fluids initially -Rapid influenza swab is negative -Continue telemetry -Continue levofloxacin but increase dose to 750 mg once daily -Obtain sputum culture if possible -Follow blood cultures-no growth to date -Urine Legionella -Continue bronchodilators, Spiriva, inhaled corticosteroid -Continue IV steroids and wean down as able to CAD Chronic systolic CHF status post AICD, currently not in exacerbation. Echo from 05/2017 with EF 20-25% Continue Lipitor, continue Lasix 40 mg daily -Continue Coreg 3.125 twice a day -Continue decreased dose of Aldactone from 25 mg daily to 12.5 due to the hypotension Orthostatic [id number] issue, now improved -Continue Midrin Paroxysmal atrial fibrillation/DVT/PE in the past-in sinus tachycardia here secondary to acute illness -Continue Coreg -Holding Coumadin for supratherapeutic INR -Follow PT/INR Fall risk Likely due to hypoxia and hypotension Physical therapy and patient therapy evaluation Continue midodrine to avoid hypotension Currently benefit of anticoagulation seems to be outweighs risks especially if his fall risk will be controlled Depression/anxiety-stable Continue home meds Iron deficiency anemia-hemoglobin is stable at 9.9, is considerably microcytic with an elevated RDW, iron studies show transferrin saturation of only 4%, ferritin low at 20. Hemoglobin stable at 9.9 which is around his baseline -Check Hemoccult stool -Needs outpatient GI evaluation. -Start ferrous sulfate 325 mg p.o. twice daily Prophylaxis-Coumadin Disposition-remain on telemetry, expect hospital stay another 1-2 days Full code
[2017-09-14] MEDS ORDERED: LEVOFLOXACIN / D5W 500 MG in PREMIXED IN D5W 100 ML IV SCH (16:00)
[2017-09-14] MEDS ORDERED: LEVOFLOXACIN / D5W 750 MG in PREMIXED IN D5W 100 ML IV SCH (16:00)
[2017-09-14] MEDS: LEVOFLOXACIN / D5W 750 MG in PREMIXED IN D5W 150 ML IV SCH (16:17)
[2017-09-14] MEDS: DIGOXIN 0.125 MG TAB PO SCH (16:18)
[2017-09-14] MEDS: ALBUTEROL HFA 8 GM INHALER INH SCH (16:18)
[2017-09-14] MEDS: FERROUS SULFATE 325 MG TAB PO SCH (16:19)
[2017-09-14] MEDS: OXYCODONE/ACETAMINOPHEN 10/325MG TAB PO SCH (17:54)
[2017-09-14] MEDS ORDERED: NURSING VERBAL MED ORDER ONE (18:00)
[2017-09-14] MEDS ORDERED: GLUCOSE 40% GEL 15 GM TUBE PO PRN (19:15)
[2017-09-14] MEDS ORDERED: GLUCAGON FOR INJ 1 MG VIAL SQ PRN (19:15)
[2017-09-14] MEDS ORDERED: GLUCOSE 10 TABS/TUBE PO PRN (19:15)
[2017-09-14] MEDS ORDERED: DEXTROSE 50% 50 ML SYR IV PRN (19:15)
[2017-09-14] MEDS: ZOLPIDEM TARTRATE 5 MG TAB PO PRN (21:19)
[2017-09-14] MEDS: TIOTROPIUM BROMIDE 5 PUFF/90 MCG INH INH SCH (21:20)
[2017-09-14] MEDS: DOCUSATE SODIUM 100 MG CAP PO SCH (21:22)
[2017-09-14] MEDS: ATORVASTATIN 40 MG TAB PO SCH (21:24)
[2017-09-14] MEDS: NORTRIPTYLINE HCL 25 MG CAP PO SCH (21:25)
[2017-09-14] MEDS: MIRTAZAPINE SOLTAB 15 MG PO SCH (21:25)
[2017-09-14] MEDS: SERTRALINE HCL 50 MG TAB PO SCH (21:26)
[2017-09-14] MEDS: INSULIN ASPART 100 UNITS/ML 3 ML PEN SC SCH (21:28)
[2017-09-15] VITALS (16 sets, daily range): BP systolic 113–127; BP diastolic 79–91; PULSE 109–120; TEMP 36.3–36.6; O2SAT 90–95
[2017-09-15] MEDS: OXYCODONE/ACETAMINOPHEN 10/325MG TAB PO SCH ×5 (00:22→23:57)
[2017-09-15] MEDS: METHYLPREDNISOLONE IV 60 MG in SYRINGE 0 ML IV SCH ×4 (00:22→17:08)
[2017-09-15] MEDS: ALBUTEROL HFA 8 GM INHALER INH SCH ×4 (00:34→16:45)
[2017-09-15] MEDS: IPRATROPIUM BROMIDE NEB SOLN 0.02% 2.5 ML VIAL INH SCH ×4 (02:01→19:35)
[2017-09-15] MEDS: LEVALBUTEROL 0.63MG/3 ML NEB INH SCH ×4 (02:01→19:35)
[2017-09-15 03:16] LABS: HEMATOCRIT 32.6 % (42-52); HEMOGLOBIN 10.1 g/dL (14.0-18.0); IG# 0.03 K/uL (0.00-0.02); LYMPH % 8.1 %; LYMPH ABS # 0.57 K/uL (1.2-3.4); MEAN CELL VOLUME 80.7 fL (80-100); MEAN PLATELET VOLUME 9.5 fL (7.4-10.4); MONO % 8.3 %; MONO ABS # 0.58 K/uL (0.11-0.59); NEUT % 83.2 %; NEUT ABS # 5.84 K/uL (1.4-6.5); PLATELET COUNT 243 K/uL (130-400); RED CELL DISTRIBUTION WIDTH CV 20.4 % (11.5-14.5); RED CELL DISTRIBUTION WIDTH SD 60.6 fL (36.4-46.3); WHITE BLOOD COUNT 7.02 K/uL (4.8-10.8)
[2017-09-15 03:29] LABS: INR 3.9 (0.9-1.1)
[2017-09-15 03:51] LABS: ALBUMIN 3.3 gm/dl (3.4-5.0); CALCIUM 7.9 mg/dl (8.5-10.1); CREATININE 1.22 mg/dl (0.60-1.40); POTASSIUM 4.9 mmol/L (3.5-5.1); TOTAL PROTEIN 7.4 gm/dl (6.4-8.2)
[2017-09-15 06:37] LABS: HEMOGLOBIN A1C 6.1 % (4.5-5.6)
[2017-09-15] MEDS: INSULIN ASPART 100 UNITS/ML 3 ML PEN SC SCH ×4 (07:00→21:00)
[2017-09-15] MEDS: BUDESONIDE 0.5 MG/2 ML VIAL (PULMICORT) INH SCH (07:05)
[2017-09-15] MEDS: LACTOBACILLUS ACIDOPHILUS (FLORANEX) TAB PO SCH ×3 (08:24→17:08)
[2017-09-15] MEDS: MIDODRINE 2.5 MG TAB PO SCH ×3 (08:25→17:09)
[2017-09-15] MEDS: RANITIDINE HCL 150 MG TAB PO SCH ×2 (08:25→21:45)
[2017-09-15] MEDS: CYCLOBENZAPRINE HCL 10 MG TAB PO SCH ×2 (08:25→21:46)
[2017-09-15] MEDS: FLUTICASONE/SALMETEROL 250/50 (ADVAIR) 14 PUFF/1 INHALER INH SCH ×2 (08:25→21:41)
[2017-09-15] MEDS: FERROUS SULFATE 325 MG TAB PO SCH ×2 (08:26→17:07)
[2017-09-15] MEDS: DOCUSATE SODIUM 100 MG CAP PO SCH ×2 (08:26→21:47)
[2017-09-15] MEDS: PANTOprazole SOD 40 MG TAB PO SCH (08:26)
[2017-09-15] MEDS: ASPIRIN 81 MG ECTAB PO SCH (08:26)
[2017-09-15] MEDS: CARVEDILOL 3.125 MG TAB PO SCH ×2 (08:26→21:46)
[2017-09-15] MEDS: CLOPIDOGREL BISULFATE 75 MG TAB PO SCH (08:27)
[2017-09-15] MEDS: GUAIFENESIN 600 MG TABCR PO PRN (08:27)
[2017-09-15] MEDS: BusPIRone 15 MG TAB PO SCH ×3 (08:29→21:43)
[2017-09-15] MEDS: LIDODERM (LIDOCAINE) PATCH 5% TD SCH (08:29)
[2017-09-15] MEDS: FUROSEMIDE 40 MG TAB PO SCH (08:29)
--- NOTE | 2017-09-15 08:40 | Hospitalist Progress Note ---
Hospitalist Progress Note Date of Service Sep 15, 2017. (Trinity Price PA-C) Subjective Pt evaluation today including: conversation w/ patient, physical exam, chart review, lab review, review of studies Pain: None PO Intake: Good Voiding: no voiding problems The patient was seen and examined this morning. Pt reports doing better today compared to previously. He notes not feeling as short of breath at rest, but upon ambulation to the bathroom had significant sob during shaving face/washing up. He denies as much sputum production as yesterday, and denies chest tightness pressure or pain in entirety. Pt denies fever, chills or sweats. Discussion was held regarding accuchecks with insulin, and that he is also on solumedrol. Constitutional: No fever, No chills, No sweats Eyes: No eye pain, No redness ENT: No nasal symptoms, No sore throat, No trouble swallowing Respiratory: No cough, No shortness of breath Cardiovascular: + edema (but stable compared to baseline), No chest pain, No palpitations Abdomen: No pain, No nausea, No vomiting, No diarrhea, No constipation Musculoskeletal: No joint pain, No swelling Male : No dysuria Neurologic: No weakness, No numbness/tingling Psychiatric: No depression symptoms, No anxiety Endo: No fatigue (Trinity Price PA-C) Objective Vital Signs Date Time Temp Pulse Resp B/P (MAP) Pulse Ox O2 Delivery O2 Flow Rate FiO2 09/15/17 08:15 36.6 120 24 113/79 (90) 90 Room Air 09/15/17 07:05 115 18 92 Room Air 09/15/17 04:00 91 Room Air 2.0 09/15/17 03:18 36.5 114 18 119/88 (98) 91 09/15/17 00:01 92 Room Air 09/14/17 23:36 36.7 109 20 118/89 (99) 91 Room Air 09/14/17 20:00 91 Room Air 09/14/17 19:15 36.4 93 20 109/82 (91) 91 09/14/17 19:01 110 18 94 Room Air 09/14/17 16:18 109 09/14/17 16:00 Room Air 09/14/17 15:31 109 18 118/82 (94) 90 Room Air 09/14/17 14:58 102 16 94 Room Air 09/14/17 12:04 36.5 106 16 112/78 (89) 90 09/14/17 12:00 Room Air (Trinity Price PA-C) Physical Exam General Appearance: WD/WN, no apparent distress, + obese (morbid, BMI 31.7) Eyes: PERRL, EOMI ENT: hearing grossly normal, pharynx normal Neck: supple, no JVD Respiratory/Chest: lungs clear, no respiratory distress, no accessory muscle use Cardiovascular: regular rate, rhythm, no JVD, + irregularly irregular (rate in 120s) Abdomen: normal bowel sounds, non tender, soft Extremities: non-tender, no calf tenderness, + pedal edema (trace pitting BLE) Neurologic/Psychiatric: alert, normal mood/affect, oriented x 3 Skin: normal color, warm/dry (Trinity Price PA-C) Laboratory Results Last 24 Hours Test 09/14/17 09:00 09/14/17 11:35 09/14/17 16:16 09/14/17 20:04 Influenza Type A Antigen Neg for Influ A Influenza Type B Antigen Neg for Influ B Bedside Glucose 184 mg/dl 212 mg/dl 223 mg/dl Test 09/15/17 03:06 09/15/17 06:46 White Blood Count 7.02 K/uL Red Blood Count 4.04 M/uL Hemoglobin 10.1 g/dL Hematocrit 32.6 % Mean Corpuscular Volume 80.7 fL Mean Corpuscular Hemoglobin 25.0 pg Mean Corpuscular Hemoglobin Concent 31.0 g/dl Platelet Count 243 K/uL Mean Platelet Volume 9.5 fL Neutrophils (%) (Auto) 83.2 % Lymphocytes (%) (Auto) 8.1 % Monocytes (%) (Auto) 8.3 % Eosinophils (%) (Auto) 0.0 % Basophils (%) (Auto) 0.0 % Neutrophils # (Auto) 5.84 K/uL Lymphocytes # (Auto) 0.57 K/uL Monocytes # (Auto) 0.58 K/uL Eosinophils # (Auto) 0.00 K/uL Basophils # (Auto) 0.00 K/uL RDW Standard Deviation 60.6 fL RDW Coefficient of Variation 20.4 % Immature Granulocyte % (Auto) 0.4 % Immature Granulocyte # (Auto) 0.03 K/uL Large Platelets 1+ Hypochromasia PRESENT Anisocytosis PRESENT Prothrombin Time 39.8 SECONDS Prothromb Time International Ratio 3.9 Sodium Level 136 mmol/L Potassium Level 4.9 mmol/L Chloride Level 104 mmol/L Carbon Dioxide Level 25 mmol/L Anion Gap 7.0 mmol/L Blood Urea Nitrogen 23 mg/dl Creatinine 1.22 mg/dl Est Creatinine Clear Calc Drug Dose 88.0 ml/min Estimated GFR () 75.3 Estimated GFR (Non- 64.9 BUN/Creatinine Ratio 18.6 Random Glucose 150 mg/dl Calcium Level 7.9 mg/dl Magnesium Level 2.8 mg/dl Total Bilirubin 0.3 mg/dl Aspartate Amino Transf (AST/SGOT) 27 U/L Alanine Aminotransferase (ALT/SGPT) 26 U/L Alkaline Phosphatase 67 U/L Troponin I 0.020 ng/ml Total Protein 7.4 gm/dl Albumin 3.3 gm/dl Globulin 4.1 gm/dl Albumin/Globulin Ratio 0.8 Procalcitonin < 0.05 ng/ml Bedside Glucose 155 mg/dl (Trinity Price, PA-C) Assessment and Plan Mr. Morgan is a 56-year-old man with a complex past medical history including ischemic cardiomyopathy and ventricular tachycardia status post dual-chamber ICD , coronary artery disease post RCA PCI with 2 JUVE 04/16/2017, peripheral arterial disease with known lower extremity arterial aneurysm status post endovascular stenting and owywo-qyh-ruwk bypass surgery, prior recurrent VTE, paroxysmal atrial fibrillation, long-term anticoagulation, orthostatic hypotension, anemia, questionable seizure disorder, and tobacco abuse with severe COPD who presents with acute hypoxic respiratory failure secondary to bilateral lower lobe pneumonia, multiple falls, presyncope with orthostatic hypotension. Acute hypoxic respiratory failure/acute exacerbation of COPD-now weaned off oxygen Bilateral basal pneumonia-with productive sputum and cough for several days Presyncope secondary to hypoxemia and orthostatic hypotension-improved blood pressures with receiving IV fluids initially - neg flu swab - Continue levofloxacin but increase dose to 750 mg once daily (started 09/13) - Obtain sputum culture if possible - pt reports less productive cough today. - BCx NGTD - Continue bronchodilators, Spiriva, inhaled corticosteroid - Continue IV steroids and wean down as able to CAD Chronic systolic CHF s/p AICD, currently not in exacerbation. Echo from 05/2017 with EF 20-25% -Continue Lipitor, continue Lasix 40 mg PO daily - dry weight of 235lbs is pts baseline. As outpt not on specific fluid restriction although he does avoid high sodium diet. -Continue Coreg 3.125 BID -Continue decreased dose of Aldactone from 25 mg daily to 12.5 due to the hypotension initially - BP is improving today, may be able to resume increased dose tomorrow am. Orthostatic fzklfprkbma-qqyo-thxnqjrw issue, now improved -Continue Midrin Paroxysmal atrial fibrillation/DVT/PE in the past-in sinus tachycardia here secondary to acute illness -Continue Coreg -Holding Coumadin for supratherapeutic INR - today 3.9 -Follow PT/INR Fall risk - Likely due to hypoxia and hypotension - PT/OT to eval - Continue midodrine as above - Currently benefit of anticoagulation seems to be outweighs risks especially if his fall risk will be controlled Depression/anxiety-stable - Continue home meds Iron deficiency anemia-hemoglobin is stable at 10.1, is considerably microcytic with an elevated RDW, iron studies show transferrin saturation of only 4%, ferritin low at 20. -near baseline - Check Hemoccult stool, no BM yet. - Needs outpatient GI evaluation. -Start ferrous sulfate 325 mg p.o. BID DVT ppx: Coumadin CODE: Full code Disposition: From home, lives with .-remain on telemetry, expect hospital stay another 1-2 days (Trinity Price, DOROTHY) Reviewed: Pt Seen/Exam by Me (Roxana Bell MD) History Physician Baggage Inspector Supervision Note: I interviewed and examined the patient. Discussed with CHEIKH Price and agree with findings and plan as documented in the note. Any exceptions or clarifications are listed here: Patient reports shortness of breath is much improved today, cough is also improving, not able to get up much sputum. He had a lot of trouble sleeping last night and feels really hyper with the steroids. He reports that his heart rate is always between 101 15 which is normal for him at rest. Vitals reviewed, telemetry with sinus tachycardia to the 120s at times Gen: AAOx3, NAD HEENT: anicteric sclerae, EOMI CV: Mild tachycardia, regular rate, no mgr nl S1S2 Pulm: Decreased breath sounds at the bases bilaterally, otherwise slightly decreased air movement throughout, no wheezes crackles or rhonchi Abd: +BS soft NT ND no masses or hernias Ext: Trace pitting edema in the legs bilaterally Skin: no rashes, warm/dry Mr. Morgan is a 56-year-old man with a complex past medical history including ischemic cardiomyopathy and ventricular tachycardia status post dual-chamber ICD , coronary artery disease post RCA PCI with 2 JUVE 04/16/2017, peripheral arterial disease with known lower extremity arterial aneurysm status post endovascular stenting and uejfc-lyv-nbpt bypass surgery, prior recurrent VTE, paroxysmal atrial fibrillation, long-term anticoagulation, orthostatic hypotension, anemia, questionable seizure disorder, and tobacco abuse with severe COPD who presents with acute hypoxic respiratory failure secondary to bilateral lower lobe pneumonia, multiple falls, presyncope with orthostatic hypotension. -Will wean steroids down to every 8 hours given insomnia and hyperactivity -Continue antibiotics -Okay to restart Spironolactone 12.5 mg in the morning-he actually takes this at home as 25 mg daily, not as needed as was originally ordered -Check orthostatics now -Follow PT/INR, holding Coumadin for elevated INR -Has Ambien as needed for sleep Documented By: Roxana Bell (Roxana Bell MD)
[2017-09-15] MEDS ORDERED: WARFARIN SOD 3 MG TAB PO SCH (16:00)
[2017-09-15] MEDS: LEVOFLOXACIN / D5W 750 MG in PREMIXED IN D5W 150 ML IV SCH (17:06)
[2017-09-15] MEDS: DIGOXIN 0.125 MG TAB PO SCH (17:07)
[2017-09-15] MEDS ORDERED: SPR25 PO (18:13)
[2017-09-15] MEDS: MIRTAZAPINE SOLTAB 15 MG PO SCH (21:42)
[2017-09-15] MEDS: TIOTROPIUM BROMIDE 5 PUFF/90 MCG INH INH SCH (21:43)
[2017-09-15] MEDS: ATORVASTATIN 40 MG TAB PO SCH (21:44)
[2017-09-15] MEDS: SERTRALINE HCL 50 MG TAB PO SCH (21:45)
[2017-09-15] MEDS: NORTRIPTYLINE HCL 25 MG CAP PO SCH (21:45)
[2017-09-16] VITALS (14 sets, daily range): BP systolic 110–131; BP diastolic 70–97; PULSE 89–119; TEMP 36.2–36.9; O2SAT 90–96
[2017-09-16] MEDS: IPRATROPIUM BROMIDE NEB SOLN 0.02% 2.5 ML VIAL INH SCH ×4 (02:32→18:59)
[2017-09-16] MEDS: LEVALBUTEROL 0.63MG/3 ML NEB INH SCH ×4 (02:32→18:59)
[2017-09-16] MEDS: METHYLPREDNISOLONE IV 60 MG in SYRINGE 0 ML IV SCH ×2 (03:00→11:51)
[2017-09-16] MEDS: OXYCODONE/ACETAMINOPHEN 10/325MG TAB PO SCH ×4 (05:54→23:57)
[2017-09-16 07:18] LABS: CREATININE 1.26 mg/dl (0.60-1.40); POTASSIUM 4.5 mmol/L (3.5-5.1)
[2017-09-16 07:20] LABS: HEMATOCRIT 33.6 % (42-52); HEMOGLOBIN 10.4 g/dL (14.0-18.0); MEAN CORPUSCULAR HEMOGLOBIN 25.1 pg (25-34); MEAN PLATELET VOLUME 9.8 fL (7.4-10.4); PLATELET COUNT 264 K/uL (130-400); RED CELL DISTRIBUTION WIDTH CV 20.7 % (11.5-14.5); RED CELL DISTRIBUTION WIDTH SD 61.6 fL (36.4-46.3); WHITE BLOOD COUNT 8.55 K/uL (4.8-10.8)
[2017-09-16 07:22] LABS: IG# 0.06 K/uL (0.00-0.02); LYMPH % 7.1 %; LYMPH ABS # 0.61 K/uL (1.2-3.4); MONO % 10.9 %; MONO ABS # 0.93 K/uL (0.11-0.59); NEUT % 81.3 %; NEUT ABS # 6.95 K/uL (1.4-6.5)
[2017-09-16] MEDS: LACTOBACILLUS ACIDOPHILUS (FLORANEX) TAB PO SCH ×3 (07:42→16:57)
[2017-09-16] MEDS: FERROUS SULFATE 325 MG TAB PO SCH ×2 (07:42→16:55)
[2017-09-16] MEDS: GUAIFENESIN 600 MG TABCR PO PRN (07:42)
[2017-09-16] MEDS: ASPIRIN 81 MG ECTAB PO SCH (07:43)
[2017-09-16] MEDS: RANITIDINE HCL 150 MG TAB PO SCH ×2 (07:43→20:14)
[2017-09-16] MEDS: BusPIRone 15 MG TAB PO SCH ×3 (07:43→20:16)
[2017-09-16] MEDS: FUROSEMIDE 40 MG TAB PO SCH (07:43)
[2017-09-16] MEDS: PANTOprazole SOD 40 MG TAB PO SCH (07:44)
[2017-09-16] MEDS: CYCLOBENZAPRINE HCL 10 MG TAB PO SCH ×2 (07:44→20:14)
[2017-09-16] MEDS: CLOPIDOGREL BISULFATE 75 MG TAB PO SCH (07:44)
[2017-09-16] MEDS: DOCUSATE SODIUM 100 MG CAP PO SCH ×2 (07:44→20:15)
[2017-09-16] MEDS: CARVEDILOL 3.125 MG TAB PO SCH ×2 (07:44→20:15)
[2017-09-16] MEDS: MIDODRINE 2.5 MG TAB PO SCH ×3 (07:45→17:04)
[2017-09-16] MEDS: FLUTICASONE/SALMETEROL 250/50 (ADVAIR) 14 PUFF/1 INHALER INH SCH ×2 (07:45→20:11)
[2017-09-16] MEDS: INSULIN ASPART 100 UNITS/ML 3 ML PEN SC SCH ×4 (07:48→20:30)
[2017-09-16] MEDS: LIDODERM (LIDOCAINE) PATCH 5% TD SCH (07:49)
--- NOTE | 2017-09-16 08:23 | Hospitalist Progress Note ---
Hospitalist Progress Note Date of Service September 16, 2017. (Trniity Price PA-C) Subjective Pt evaluation today including: conversation w/ patient, conversation w/ family , physical exam, chart review, lab review, review of studies Pain: NOne PO Intake: Good Voiding: no voiding problems The patient was seen and examined this morning. Pt reports doing better today compared to yesterday, he was awake earlier today to eat breakfast but other than that has been sleeping this morning. He did not fall asleep until 3am last night. He reports coughing slightly less but bringing up green mucous. He is still requiring supplemental o2. Pt denies chest pain, palpitation, dizziness or lightheadedness. He notes his HR typically stays around 110-120s. Additional Comments: Constitutional: No fever, No chills, No sweats Eyes: No eye pain, No redness ENT: No nasal symptoms, No sore throat, No trouble swallowing Respiratory: No cough, No shortness of breath Cardiovascular: + edema (but stable compared to baseline), No chest pain, No palpitations Abdomen: No pain, No nausea, No vomiting, No diarrhea, No constipation Musculoskeletal: No joint pain, No swelling Male : No dysuria Neurologic: No weakness, No numbness/tingling Endo: No fatigue (Trinity Price, DOROTHY) Objective Vital Signs Date Time Temp Pulse Resp B/P (MAP) Pulse Ox O2 Delivery O2 Flow Rate FiO2 09/16/17 08:00 92 Room Air 2.0 09/16/17 07:05 36.3 118 23 131/70 (90) 92 Room Air 09/16/17 07:00 118 18 93 Room Air 09/16/17 04:00 92 Room Air 2.0 09/16/17 03:40 36.9 119 23 120/92 (101) 90 BiPAP 126/90 (102) 110/78 (89) 09/16/17 00:01 92 Room Air 2.0 09/15/17 23:40 36.3 116 22 125/91 (102) 93 Room Air 09/15/17 20:00 92 Room Air 09/15/17 19:37 112 18 91 Room Air 09/15/17 19:33 36.5 113 22 125/89 (101) 92 Room Air 09/15/17 17:07 110 09/15/17 16:00 92 Room Air 2.0 09/15/17 15:58 36.4 109 20 119/88 (98) 92 Room Air 09/15/17 15:47 110 95 09/15/17 14:05 110 18 91 Room Air 09/15/17 12:00 92 Room Air 2.0 09/15/17 11:29 36.6 117 18 127/89 (102) 91 Room Air 09/15/17 08:15 36.6 120 24 113/79 (90) 90 Room Air (Trinity Price PA-C) Physical Exam Notes: General Appearance: WD/WN, no apparent distress, + obese (morbid, BMI 31.7) Eyes: PERRL, EOMI ENT: hearing grossly normal, pharynx normal Neck: supple, no JVD Respiratory/Chest: lungs clear, no adventitious breath sounds, + cough, no respiratory distress, no accessory muscle use Cardiovascular: regular rate, rhythm, no JVD, + irregularly irregular (rate in 110s) Abdomen: normal bowel sounds, non tender, soft Extremities: non-tender, no calf tenderness, + pedal edema (trace pitting BLE) Neurologic/Psychiatric: alert, normal mood/affect, oriented x 3 Skin: normal color, warm/dry (Trinity Price PA-C) Laboratory Results Last 24 Hours Test 09/15/17 09:42 09/15/17 11:11 09/15/17 14:53 09/15/17 16:29 Troponin I < 0.015 ng/ml 0.026 ng/ml Bedside Glucose 231 mg/dl 149 mg/dl Test 09/15/17 20:13 09/16/17 06:20 09/16/17 07:14 Bedside Glucose 178 mg/dl 149 mg/dl White Blood Count 8.55 K/uL Red Blood Count 4.15 M/uL Hemoglobin 10.4 g/dL Hematocrit 33.6 % Mean Corpuscular Volume 81.0 fL Mean Corpuscular Hemoglobin 25.1 pg Mean Corpuscular Hemoglobin Concent 31.0 g/dl Platelet Count 264 K/uL Mean Platelet Volume 9.8 fL Neutrophils (%) (Auto) 81.3 % Lymphocytes (%) (Auto) 7.1 % Monocytes (%) (Auto) 10.9 % Eosinophils (%) (Auto) 0.0 % Basophils (%) (Auto) 0.0 % Neutrophils # (Auto) 6.95 K/uL Lymphocytes # (Auto) 0.61 K/uL Monocytes # (Auto) 0.93 K/uL Eosinophils # (Auto) 0.00 K/uL Basophils # (Auto) 0.00 K/uL RDW Standard Deviation 61.6 fL RDW Coefficient of Variation 20.7 % Immature Granulocyte % (Auto) 0.7 % Immature Granulocyte # (Auto) 0.06 K/uL Polychromasia 1+ Anisocytosis PRESENT Target Cells 1+ Sodium Level 136 mmol/L Potassium Level 4.5 mmol/L Chloride Level 105 mmol/L Carbon Dioxide Level 24 mmol/L Anion Gap 7.0 mmol/L Blood Urea Nitrogen 27 mg/dl Creatinine 1.26 mg/dl Est Creatinine Clear Calc Drug Dose 84.0 ml/min Estimated GFR () 72.4 Estimated GFR (Non- 62.5 BUN/Creatinine Ratio 21.5 Random Glucose 151 mg/dl Calcium Level 8.0 mg/dl Magnesium Level 2.8 mg/dl (Trinity Price, DOROTHY) Assessment and Plan Mr. Morgan is a 56-year-old man with a complex past medical history including ischemic cardiomyopathy and ventricular tachycardia s/p dual-chamber ICD, CAD post RCA PCI with 2 JUVE 04/16/2017, PAD with known lower extremity arterial aneurysm status post endovascular stenting and ketoq-sug-pydg bypass surgery, prior recurrent VTE, paroxysmal atrial fibrillation, long-term anticoagulation, orthostatic hypotension, anemia, questionable seizure disorder, and tobacco abuse with severe COPD who presents with acute hypoxic respiratory failure secondary to bilateral lower lobe pneumonia, multiple falls, presyncope with orthostatic hypotension. Acute hypoxic respiratory failure/acute exacerbation of COPD-now weaned off oxygen Bilateral basal pneumonia-with productive sputum and cough for several days Presyncope secondary to hypoxemia and orthostatic hypotension-improved blood pressures with receiving IV fluids initially - neg flu swab - Continue levofloxacin but increase dose to 750 mg once daily (started 09/13) - Obtain sputum culture if possible - BCx NGTD - Continue bronchodilators, Spiriva, inhaled corticosteroid - Decrease solumedrol to 60 mg Q12 - no wheezing on exam so likely decrease again tomorrow. CAD Chronic systolic CHF s/p AICD, currently not in exacerbation. Echo from 05/2017 with EF 20-25% -Continue Lipitor, continue Lasix 40 mg PO daily - dry weight of 235lbs is pts baseline. As outpt not on specific fluid restriction although he does avoid high sodium diet. -Continue Coreg 3.125 BID - Cont Aldactone from 25 mg daily to 12.5 mg daily due to the hypotension initially - BP stable in 120s-130s, may be able to resume increased dose tomorrow am. ?Vtach - Cardiology consulted for persistent tachycardia and had 15 sec run of Vtach overnight on tele - Question if able to increase coreg with his hx of hypotension. Orthostatic BPs have been negative. Orthostatic jkoygsaycla-juqy-sdkyisys issue- stable -Continue Midrin Paroxysmal atrial fibrillation/DVT/PE in the past-in sinus tachycardia here secondary to acute illness -Continue Coreg as above -Holding Coumadin for supratherapeutic INR - today 3.9 - may be levaquin potentiating coumadin levels at this point. -Follow PT/INR Fall risk - Likely due to hypoxia and hypotension - PT/OT to eval - Continue midodrine as above - Currently benefit of anticoagulation seems to be outweighs risks especially if his fall risk will be controlled Depression/anxiety-stable - Continue home meds Iron deficiency anemia-hemoglobin is stable at 10.4, is considerably microcytic with an elevated RDW, iron studies show transferrin saturation of only 4%, ferritin low at 20. -near baseline - Check Hemoccult stool, no BM yet. - Needs outpatient GI evaluation. - Start ferrous sulfate 325 mg p.o. BID DVT ppx: Coumadin CODE: Full code Disposition: From home, lives with . -remain on telemetry for now (Trinity Price PA-C) Reviewed: Pt Seen/Exam by Me (Roxana Bell MD) History Physician Director Content Marketing Supervision Note: I interviewed and examined the patient. Discussed with CHEIKH Price and agree with findings and plan as documented in the note. Any exceptions or clarifications are listed here: Overall feeling better, still very short of breath with minimal ambulation off of oxygen today. Cough is improving. Still remains with sinus tachycardia. Discussed the case with cardiology today given my concern for his persistent sinus tachycardia. Also with some possible V. tach on telemetry last night Vitals reviewed, telemetry reviewed Gen: AAOx3, NAD HEENT: anicteric sclerae, EOMI CV: Mild tachycardia, regular rate, no mgr nl S1S2 Pulm: Decreased breath sounds at the bases bilaterally, otherwise slightly decreased air movement throughout, some few faint expiratory wheezes Abd: +BS soft NT ND no masses or hernias Ext: Trace pitting edema in the legs bilaterally Skin: no rashes, warm/dry Mr. Morgan is a 56-year-old man with a complex past medical history including ischemic cardiomyopathy and ventricular tachycardia status post dual-chamber ICD , coronary artery disease post RCA PCI with 2 JUVE 04/16/2017, peripheral arterial disease with known lower extremity arterial aneurysm status post endovascular stenting and hdfhz-rty-vgue bypass surgery, prior recurrent VTE, paroxysmal atrial fibrillation, long-term anticoagulation, orthostatic hypotension, anemia, questionable seizure disorder, and tobacco abuse with severe COPD who presents with acute hypoxic respiratory failure secondary to bilateral lower lobe pneumonia, multiple falls, presyncope with orthostatic hypotension. Orthostatic vital signs look pretty good -Agree with weaning steroids down and switch to p.o. prednisone likely tomorrow -Continue Levaquin and switch to p.o. for total 7 day course -Continue spironolactone 12.5 mg in the morning, continue Lasix-weight is down since admission -Follow PT/INR, continue holding Coumadin for elevated INR -Has Ambien as needed for sleep -We helped him reschedule his PCP appointment that was for Friday-it was instead moved to Friday with the PA-patient was very concerned about missing this appointment to refill his Percocet-perhaps we can give him a one day bridge of Percocet if needed on discharge Documented By: Roxana Bell (Roxana Bell MD)
[2017-09-16] MEDS: SPIRONOLACTONE 25 MG TAB PO SCH (09:07)
[2017-09-16] MEDS: DIGOXIN 0.125 MG TAB PO SCH (16:57)
[2017-09-16] MEDS: LEVOFLOXACIN 750 MG TAB PO SCH (17:17)
[2017-09-16] MEDS: TIOTROPIUM BROMIDE 5 PUFF/90 MCG INH INH SCH (20:11)
[2017-09-16] MEDS: MIRTAZAPINE SOLTAB 15 MG PO SCH (20:12)
[2017-09-16] MEDS: ATORVASTATIN 40 MG TAB PO SCH (20:14)
[2017-09-16] MEDS: NORTRIPTYLINE HCL 25 MG CAP PO SCH (20:16)
[2017-09-16] MEDS: SERTRALINE HCL 50 MG TAB PO SCH (20:17)
[2017-09-16] MEDS ORDERED: METHYLPREDNISOLONE IV 60 MG in SYRINGE 0 ML IV SCH (22:00)
--- NOTE | 2017-09-16 22:41 | CARDIOLOGY CONSULTATION ---
DATE OF CONSULTATION: 09/16/2017 PERTINENT HISTORY: Mr. Morgan is a 56-year-old white male with a complex past medical history who was admitted on September 13 with a productive cough and bilateral pulmonary infiltrates. The patient has demonstrated persistent sinus tachycardia and had an episode of nonsustained ventricular tachycardia prompting this consultation. The patient was in his usual state of health until approximately 48 hours prior to admission. He began to note a productive cough and exertional dyspnea. He was seen by Catherine Cooper PA-C in our heart failure clinic on September 12. There was a followup appointment as his diuretics were adjusted because of significant weight gain over the months of July and August. The patient does follow daily weights at home and considers his "dry" weight to be 240 pounds. He is now stable on both spironolactone and Lasix. There has been difficulty uptitrating his medications due to his symptomatic orthostatic hypotension. An attempt was made to change him from carvedilol to metoprolol succinate, however, this was unable to be undertaken due to financial concerns. The patient's recent cardiac history began back in March when he had 2 stents placed in the right coronary artery. He presented to our institution in May with non-ST elevation NC. He underwent cardiac catheterization with Dr. Parker, which revealed a 100% proximal right coronary stenosis just prior to the stents. There is distal collateralization. The patient also had a 40% mid LAD and a 90% proximal D1 stenosis. The distal diagonal filled with collaterals. He also had a 50%-60% ramus intermedius obstruction. As the patient's event was limited, it was decided to follow medical management. Currently, the patient is resting comfortably in bed without complaints. PAST MEDICAL HISTORY: 1. Coronary artery disease, see above. 2. RCA stents x2, March 2017. 3. RCA stenosis 100%, May 2017. 4. Ischemic cardiomyopathy, 20%-25%, inferior and inferolateral wall motion abnormalities. 5. Dual chamber ICD, May 2017. 6. Paroxysmal atrial fibrillation. 7. Orthostatic hypotension. 8. Peripheral vascular disease. 9. Bilateral iliac artery aneurysms. 10. Left below knee popliteal artery bypass. 11. SFA aneurysm ligation. 12. Severe tibial disease. 13. Right SFA to popliteal stent. 14. COPD. 15. Possible seizure disorder. 16. Anemia of chronic disease. 17. Anxiety/depression. MEDICATIONS: 1. Carvedilol 3.125 mg b.i.d. 2. Digoxin 0.125 mg daily. 3. Aspirin 81 mg per day. 4. Plavix 75 mg per day. 5. Lasix 40 mg a day. 6. Lipitor 80 mg at bedtime. 7. Midodrine 5 mg t.i.d. 8. Xopenex nebulizer q.6 h. 9. Atrovent nebulizer q.6 h. 10. Remeron 60 mg at bedtime. 11. Spiriva 1 puff daily. 12. Zoloft 50 mg at bedtime. 13. Ranitidine 150 mg daily. 14. Pamelor 25 mg at bedtime. 15. Advair Diskus 1 puff b.i.d. 16. Flexeril 10 mg b.i.d. 17. BuSpar 15 mg t.i.d. 18. Lidoderm patch 5% daily. 19. Protonix 40 mg per day. 20. Levaquin 750 mg IV daily. 21. Iron sulfate 325 mg b.i.d. 22. Sliding scale insulin. 23. Aldactone 12.5 mg daily. 24. Colace 100 mg b.i.d. 25. Methylprednisolone 60 mg IV q.12 h. ALLERGIES: 1. HEPARIN. 2. IBUPROFEN. 3. CONTRAST DYE. SOCIAL HISTORY: The patient is and lives alone, currently at [place]. He does not use tobacco or alcohol. FAMILY HISTORY: No early coronary artery disease. REVIEW OF SYSTEMS: A 10-point review of systems negative except for that described above. PHYSICAL EXAMINATION: GENERAL: This is a well-developed and well-nourished white male, in no acute distress. VITAL SIGNS: Blood pressure is 120/80, with a regular pulse of 100, respiratory rate is 20, the patient is afebrile at 36.6 degrees Celsius, and saturation is 93% on room air. HEENT: Negative. NECK: Supple, with full carotid upstrokes. There are no carotid bruits. Jugular venous pressure is flat at 90 degrees. There is no thyromegaly. CARDIOVASCULAR: Exam reveals irregular rhythm, with normal S1 and S2. Heart sounds are distant. No obvious murmurs. RESPIRATORY: Lungs are clear without rales, rhonchi, or wheezes. CHEST: Reveals a palpable device in the left subclavicular region. GASTROINTESTINAL: Abdomen is soft, without bruits. MUSCULOSKELETAL: Extremities reveal intact radial artery pulse bilaterally. Trace pretibial edema is noted. LABORATORY DATA: CBC notes hemoglobin of 10.4, hematocrit 33.6, white count 8.5, platelet count 264,000. Electrolytes note a sodium of 136, potassium of 4.5, chloride of 105, bicarbonate 24, BUN 27, creatinine 1.26, glucose of 112. Four separate troponins are normal. INR is supratherapeutic at 3.9. EKG notes sinus tachycardia with PVCs. There is a left axis deviation and an old inferior infarction. Nonspecific intraventricular conduction delay also noted. patient monitor notes sinus tachycardia with PVCs. There was 1 brief episode of nonsustained ventricular tachycardia. IMPRESSION: Mr. Morgan was admitted with possible bilobar pneumonia and is improving with intravenous antibiotics. He does demonstrate persistent baseline sinus tachycardia. It may be reasonable to uptitrate carvedilol to 6.25 mg twice daily. He is unable to take metoprolol succinate due to financial concerns. PLAN: 1. Consider uptitration of carvedilol. 2. Continue all other medications. 3. Could consider device interrogation. 4. Further recommendations pending his clinical course. The patient will be seen by either Dr. Parker or Dr. Curtis tomorrow.
[2017-09-17] VITALS (13 sets, daily range): BP systolic 101–131; BP diastolic 74–94; PULSE 62–123; TEMP 36.2–36.5; O2SAT 90–97
[2017-09-17] MEDS: IPRATROPIUM BROMIDE NEB SOLN 0.02% 2.5 ML VIAL INH SCH ×4 (01:56→18:58)
[2017-09-17] MEDS: LEVALBUTEROL 0.63MG/3 ML NEB INH SCH ×4 (01:56→18:58)
[2017-09-17] MEDS: OXYCODONE/ACETAMINOPHEN 10/325MG TAB PO SCH ×4 (05:57→23:31)
[2017-09-17 06:46] LABS: HEMATOCRIT 34.5 % (42-52); HEMOGLOBIN 10.4 g/dL (14.0-18.0); MEAN CELL VOLUME 81.2 fL (80-100); MEAN CORPUSCULAR HEMOGLOBIN 24.5 pg (25-34); MEAN CORPUSCULAR HGB CONC 30.1 g/dl (32-36); MEAN PLATELET VOLUME 9.9 fL (7.4-10.4); NUCLEATED RED BLOOD CELL ABS 0.11 K/uL (0-0); PLATELET COUNT 256 K/uL (130-400); RED CELL DISTRIBUTION WIDTH CV 20.9 % (11.5-14.5); RED CELL DISTRIBUTION WIDTH SD 61.2 fL (36.4-46.3); WHITE BLOOD COUNT 7.79 K/uL (4.8-10.8)
[2017-09-17 07:27] LABS: CALCIUM 8.1 mg/dl (8.5-10.1); CREATININE 1.27 mg/dl (0.60-1.40); POTASSIUM 4.4 mmol/L (3.5-5.1)
[2017-09-17] MEDS: FLUTICASONE/SALMETEROL 250/50 (ADVAIR) 14 PUFF/1 INHALER INH SCH ×2 (07:56→20:56)
[2017-09-17] MEDS: LACTOBACILLUS ACIDOPHILUS (FLORANEX) TAB PO SCH ×3 (07:56→16:59)
[2017-09-17] MEDS: PANTOprazole SOD 40 MG TAB PO SCH (07:56)
[2017-09-17] MEDS: POLYETHYLENE (MIRALAX) 17 GM PACK PO PRN (07:56)
[2017-09-17] MEDS: FERROUS SULFATE 325 MG TAB PO SCH ×2 (07:57→16:59)
[2017-09-17] MEDS: CYCLOBENZAPRINE HCL 10 MG TAB PO SCH ×2 (07:57→20:56)
[2017-09-17] MEDS: GUAIFENESIN 600 MG TABCR PO PRN (07:57)
[2017-09-17] MEDS: BusPIRone 15 MG TAB PO SCH ×3 (07:57→20:56)
[2017-09-17] MEDS: CARVEDILOL 3.125 MG TAB PO SCH ×2 (07:58→20:56)
[2017-09-17] MEDS: DOCUSATE SODIUM 100 MG CAP PO SCH ×2 (07:58→20:56)
[2017-09-17] MEDS: FUROSEMIDE 40 MG TAB PO SCH (07:58)
[2017-09-17] MEDS: LIDODERM (LIDOCAINE) PATCH 5% TD SCH (07:58)
[2017-09-17] MEDS: CLOPIDOGREL BISULFATE 75 MG TAB PO SCH (07:58)
[2017-09-17] MEDS: ASPIRIN 81 MG ECTAB PO SCH (07:59)
[2017-09-17] MEDS: SPIRONOLACTONE 25 MG TAB PO SCH (07:59)
[2017-09-17] MEDS: MIDODRINE 2.5 MG TAB PO SCH ×3 (07:59→17:03)
[2017-09-17] MEDS: INSULIN ASPART 100 UNITS/ML 3 ML PEN SC SCH ×4 (08:03→20:58)
--- NOTE | 2017-09-17 08:25 | Hospitalist Progress Note ---
Hospitalist Progress Note Date of Service September 17, 2017. (Trinity Price PA-C) Subjective Pt evaluation today including: conversation w/ patient, physical exam, chart review, lab review, review of studies, conversation w/ entry level sales consultant (Cardiology) Pain: None PO Intake: Good Voiding: no voiding problems The patient was seen and examined this morning. Pt reports feeling improved today. He still has complaints of shortness of breath with ambulation to the bathroom but does not have any SOB at rest. He is coughing more mucous up since last evening, but feels this is helping him breath better. He denies any lightheadedness, dizziness, chest pain, palpitation or flutter. Cardiology discussed with the patient and myself at bedside the plan to increase coreg today, and the patient is agreeable to this. He has appointments with PCP on Friday and also with CHF clinic scheduled for next week already. Additional Comments: Constitutional: No fever, No chills, No sweats Eyes: No eye pain, No redness ENT: No nasal symptoms, No sore throat, No trouble swallowing Respiratory: see HPI. Cardiovascular: + faint edema (but stable compared to baseline), No chest pain, No palpitations Abdomen: No pain, No nausea, No vomiting, No diarrhea, No constipation Musculoskeletal: No joint pain, No swelling Neurologic: No weakness, No numbness/tingling (Trinity Price, DOROTHY) Objective Vital Signs Date Time Temp Pulse Resp B/P (MAP) Pulse Ox O2 Delivery O2 Flow Rate FiO2 09/17/17 07:11 36.3 112 18 121/94 (103) 92 Room Air 09/17/17 06:53 112 18 92 Room Air 09/17/17 04:00 Room Air 09/17/17 03:50 36.3 123 23 110/79 (89) 93 Room Air 09/17/17 00:01 Room Air 09/16/17 23:35 36.2 112 23 127/97 (107) 94 Room Air 09/16/17 22:45 Nasal Cannula 2.0 09/16/17 22:43 113 23 96 Nasal Cannula 2.0 09/16/17 20:00 Room Air 09/16/17 19:31 36.4 109 18 131/88 (102) 96 Nasal Cannula 3.0 09/16/17 19:01 89 18 94 Room Air 09/16/17 16:57 88 09/16/17 16:00 Nasal Cannula 2.0 09/16/17 15:19 36.6 110 20 131/92 (105) 93 Room Air 09/16/17 14:30 99 16 94 Nasal Cannula 2.0 09/16/17 12:00 92 Room Air 2.0 09/16/17 11:01 36.7 110 20 124/90 (101) 95 3.0 (Trinity Price PA-C) Physical Exam Notes: General Appearance: WD/WN, no apparent distress, + obese (morbid, BMI 31.7) Eyes: PERRL, EOMI ENT: hearing grossly normal, pharynx normal Neck: supple, no JVD Respiratory/Chest: lungs with adequate breath sounds except mildly diminished in the left side, no adventitious breath sounds, no respiratory distress, no accessory muscle use Cardiovascular: Regular, +tachycardia (rate in 110s), no JVD Abdomen: normal bowel sounds, non tender, soft Extremities: non-tender, no calf tenderness, + pedal edema (trace pitting BLE) Neurologic/Psychiatric: alert, normal mood/affect, oriented x 3 Skin: normal color, warm/dry (Trinity Price, CHEIKH-C) Laboratory Results Last 24 Hours Test 09/16/17 11:16 09/16/17 16:14 09/16/17 20:27 09/17/17 06:33 Bedside Glucose 150 mg/dl 148 mg/dl 134 mg/dl White Blood Count 7.79 K/uL Red Blood Count 4.25 M/uL Hemoglobin 10.4 g/dL Hematocrit 34.5 % Mean Corpuscular Volume 81.2 fL Mean Corpuscular Hemoglobin 24.5 pg Mean Corpuscular Hemoglobin Concent 30.1 g/dl RDW Standard Deviation 61.2 fL RDW Coefficient of Variation 20.9 % Platelet Count 256 K/uL Mean Platelet Volume 9.9 fL Nucleated RBC Absolute Count (auto) 0.11 K/uL Nucleated Red Blood Cells % 1.5 % Prothrombin Time 21.0 SECONDS Prothromb Time International Ratio 2.0 Sodium Level 135 mmol/L Potassium Level 4.4 mmol/L Chloride Level 103 mmol/L Carbon Dioxide Level 25 mmol/L Anion Gap 7.0 mmol/L Blood Urea Nitrogen 27 mg/dl Creatinine 1.27 mg/dl Est Creatinine Clear Calc Drug Dose 84.7 ml/min Estimated GFR () 71.7 Estimated GFR (Non- 61.9 BUN/Creatinine Ratio 21.3 Random Glucose 144 mg/dl Calcium Level 8.1 mg/dl Test 09/17/17 07:19 Bedside Glucose 138 mg/dl (Trinity Price, DOROTHY) Assessment and Plan Mr. Morgan is a 56-year-old man with a complex past medical history including ischemic cardiomyopathy and ventricular tachycardia s/p dual-chamber ICD, CAD post RCA PCI with 2 JUVE 04/16/2017, PAD with known lower extremity arterial aneurysm status post endovascular stenting and [id number] bypass surgery, prior recurrent VTE, paroxysmal atrial fibrillation, long-term anticoagulation, orthostatic hypotension, anemia, questionable seizure disorder, and tobacco abuse with severe COPD who presents with acute hypoxic respiratory failure secondary to bilateral lower lobe pneumonia, multiple falls, presyncope with orthostatic hypotension. Acute hypoxic respiratory failure/acute exacerbation of COPD-now weaned off oxygen Bilateral basal pneumonia-with productive sputum and cough for several days Presyncope secondary to hypoxemia and orthostatic hypotension-improved blood pressures with receiving IV fluids initially - neg flu swab - Continue levofloxacin PO (started 09/13) - finish on 09/19 - BCx NGTD - Continue bronchodilators, Spiriva, inhaled corticosteroid - Switched IV steroids to PO prednisone this morning - continue taper down CAD Chronic systolic CHF s/p AICD, currently not in exacerbation. Echo from 05/2017 with EF 20-25% - Continue Lipitor, continue Lasix 40 mg PO daily - dry weight of 235lbs is pts baseline. As outpt not on specific fluid restriction although he does avoid high sodium diet. - Increase Coreg 6.25 BID per cardiology - appreciate recs - Cont Aldactone from 25 mg daily to 12.5 mg daily ?Vtach - resolved, no new events on tele overnight - persistent tachycardia with 15 sec run of Vtach overnight on tele on 09/16. - increase coreg as above - Orthostatic BPs have been negative. Orthostatic [id number] issue- stable -Continue Midrin Paroxysmal atrial fibrillation/DVT/PE in the past-in sinus tachycardia here secondary to acute illness -Continue Coreg as above - resume Coumadin as supratherapeutic INR now resolved- today 2.0 -Follow PT/INR Fall risk - Likely due to hypoxia and hypotension - PT/OT to eval - Continue midodrine as above - Currently benefit of anticoagulation seems to be outweighs risks especially if his fall risk will be controlled Depression/anxiety-stable - Continue home meds Iron deficiency anemia-hemoglobin is stable at 10.4, is considerably microcytic with an elevated RDW, iron studies show transferrin saturation of only 4%, ferritin low at 20. -near baseline - Check Hemoccult stool, no BM yet. - Needs outpatient GI evaluation. - Start ferrous sulfate 325 mg p.o. BID DVT ppx: Coumadin resumed CODE: Full code Disposition: From home, lives with . -remain on telemetry for now (Trinity Price, DOROTHY) Attending Attestation - Pt seen/examined, chart reviewed, care plan d/w CHEIKH Price. I agree w/ the carranza components of her documentation. c/o dyspnea at night-time that wakes him up but no orthopnea admits to some anxiety h/o severe snoring/EDLICIA but could not tolerate CPAP/BIPAP tele stable VSS except mild tachycardia no fever gen - nad neck - no JVD heart - tachy, s1, s2 lungs - CTA b/l, mild decreased BS bases abd - soft ext - no edema on right, <1+ on left Hb low 10s Cr stable A/P: 1. DELICIA - overnight oximetry study to see if we can qualify him for night-time o2. 2. b/l community-acquired pneumonia - finish abx 3. PND - I don't think this is due to CHF. Could be COPD or anxiety or combo of factors? 4. chronic systolic CHF - appears compensated; titrating beta sravan 5. COPD with exacerbation - improved; wean steroids. back to [place] tomorrow? Juan A Estevez MD (Juan A Estevez MD)
[2017-09-17] MEDS ORDERED: CARVEDILOL 3.125 MG TAB PO ONE (09:45)
[2017-09-17] MEDS: RANITIDINE HCL 150 MG TAB PO SCH ×2 (09:59→20:56)
--- NOTE | 2017-09-17 10:06 | Cardiology Follow-Up ---
Subjective Date of Service: September 17, 2017. Pt evaluation today including: conversation w/ patient, physical exam, lab review, review of studies, review of inpatient medication list History of Present Illness He has been having a lot of difficulty with PND, this may have been a combination of hypoxia from his pulmonic process as well as heart failure but he had been gaining weight when this occurred. He had not been having much difficulty with orthostatic symptoms on his outpatient regimen which included 6.25 mg of carvedilol in the evening and 3.125 in the morning. That was decreased here to 3.125 mg twice daily. Today he feels quite well. Social History Smoking Status: Former Smoker History of Alcohol Use: No Review of Systems Respiratory: No cough, No shortness of breath Cardiac: + edema (but stable compared to baseline), No chest pain, No palpitations Medications Cardiovascular: Item Value Date Time Spironolactone 12.5 mg 09/16/17 0900 (Aldactone Tab) DAILY/PO 09/17/17 0759 Digoxin 0.125 mg 09/14/17 1600 (Lanoxin Tab) DAILY@1600/PO 09/16/17 1657 Aspirin 81 mg 09/14/17 0900 (Ecotrin Tab) QAM/PO 09/17/17 0759 Clopidogrel 75 mg 09/14/17 0900 Bisulfate QAM/PO 09/17/17 0758 (plAVix TAB) Furosemide 40 mg 09/14/17 0900 (Lasix Tab) DAILY/PO 09/17/17 0758 Atorvastatin 80 mg 09/13/17 2100 Calcium HS/PO 09/16/172013 (Lipitor Tab) Carvedilol 3.125 mg 09/13/17 2100 (Coreg Tab) BID/PO 09/17/17 0758 Objective Vital Signs Past 12 Hours Date Time Temp Pulse Resp B/P (MAP) Pulse Ox O2 Delivery O2 Flow Rate FiO2 09/17/17 08:00 92 Room Air 2.0 09/17/17 07:11 36.3 112 18 121/94 (103) 92 Room Air 09/17/17 06:53 112 18 92 Room Air 09/17/17 04:00 Room Air 09/17/17 03:50 36.3 123 23 110/79 (89) 93 Room Air 09/17/17 00:01 Room Air 09/16/17 23:35 36.2 112 23 127/97 (107) 94 Room Air 09/16/17 22:45 Nasal Cannula 2.0 09/16/17 22:43 113 23 96 Nasal Cannula 2.0 Last Recorded Weight-Kilograms: 112.900 Physical Exam Constitutional: General Apperance: overweight Level of Distress: NAD Ambulation: ambulating normally Lungs: Auscultation: breath sounds normal Cardiovascular: Heart Auscultation: RRR Extremities: no edema Data Laboratory Results: Last 24 Hours Test 09/16/17 11:16 09/16/17 16:14 09/16/17 20:27 09/17/17 06:33 Bedside Glucose 150 mg/dl 148 mg/dl 134 mg/dl White Blood Count 7.79 K/uL Red Blood Count 4.25 M/uL Hemoglobin 10.4 g/dL Hematocrit 34.5 % Mean Corpuscular Volume 81.2 fL Mean Corpuscular Hemoglobin 24.5 pg Mean Corpuscular Hemoglobin Concent 30.1 g/dl RDW Standard Deviation 61.2 fL RDW Coefficient of Variation 20.9 % Platelet Count 256 K/uL Mean Platelet Volume 9.9 fL Nucleated RBC Absolute Count (auto) 0.11 K/uL Nucleated Red Blood Cells % 1.5 % Prothrombin Time 21.0 SECONDS Prothromb Time International Ratio 2.0 Sodium Level 135 mmol/L Potassium Level 4.4 mmol/L Chloride Level 103 mmol/L Carbon Dioxide Level 25 mmol/L Anion Gap 7.0 mmol/L Blood Urea Nitrogen 27 mg/dl Creatinine 1.27 mg/dl Est Creatinine Clear Calc Drug Dose 84.7 ml/min Estimated GFR () 71.7 Estimated GFR (Non- 61.9 BUN/Creatinine Ratio 21.3 Random Glucose 144 mg/dl Calcium Level 8.1 mg/dl Test 09/17/17 07:19 Bedside Glucose 138 mg/dl Telemetry reviewed: Sinus rhythm, no significant abnormality overnight Assessment and Plan 1. Cardiomyopathy: He has a long-standing cardiomyopathy which we have not been able to treat adequately due to difficulty tolerating medications. We have very gradually been trying to up titrate his beta blockade, he has been able to tolerate 6.25 mg of carvedilol in the evening and 3.12 5 in the morning. I think we should try to increase the dose now, he has been on the prior regimen for some time. I would recommend going up to 6.25 mg twice a day , he understands and is willing to try it. I may also schedule him to see the heart failure team at [facility] to see if they have any other thoughts. 2. Shortness of breath and PND: This is probably a combination of his congestive heart failure symptoms and his pneumonia. 3. Orthostasis: We have had difficulty with orthostasis for some time, but I am hopeful that as we gradually titrate his medications that he will be able to tolerate it. Thank you for allowing me to participate in his care.
[2017-09-17] MEDS ORDERED: WARFARIN SOD 2.5 MG TAB PO ONE (16:00)
[2017-09-17] MEDS ORDERED: LEVOFLOXACIN 750 MG TAB PO SCH (16:00)
[2017-09-17] MEDS: LEVOFLOXACIN 750 MG TAB PO SCH (16:59)
[2017-09-17] MEDS: DIGOXIN 0.125 MG TAB PO SCH (17:00)
[2017-09-17] MEDS ORDERED: ALBUT/IPRATROP 3MG/0.5MG NEB 3 ML VIAL INH PRN (17:15)
[2017-09-17] MEDS: TIOTROPIUM BROMIDE 5 PUFF/90 MCG INH INH SCH (20:55)
[2017-09-17] MEDS: MIRTAZAPINE SOLTAB 15 MG PO SCH (20:55)
[2017-09-17] MEDS: SERTRALINE HCL 50 MG TAB PO SCH (20:55)
[2017-09-17] MEDS: NORTRIPTYLINE HCL 25 MG CAP PO SCH (20:56)
[2017-09-17] MEDS: ATORVASTATIN 40 MG TAB PO SCH (20:56)
[2017-09-17] MEDS: ZOLPIDEM TARTRATE 5 MG TAB PO PRN (21:40)
[2017-09-18 03:33] VITALS: BP_SYST 123; BP_SYST 125; BP_SYST 131; BP_DIAS 83; BP_DIAS 90; BP_DIAS 91; PULSE 110; PULSE 114; TEMP 36.4; O2SAT 98
[2017-09-18] MEDS: OXYCODONE/ACETAMINOPHEN 10/325MG TAB PO SCH ×2 (05:12→11:50)
[2017-09-18] MEDS: LEVALBUTEROL 0.63MG/3 ML NEB INH SCH ×3 (07:10→14:15)
[2017-09-18] MEDS: IPRATROPIUM BROMIDE NEB SOLN 0.02% 2.5 ML VIAL INH SCH ×3 (07:10→14:15)
[2017-09-18 08:00] VITALS: BP 126/86; PULSE 116; TEMP 36.8; O2SAT 92; O2SAT 96
[2017-09-18] MEDS: PANTOprazole SOD 40 MG TAB PO SCH (08:03)
[2017-09-18] MEDS: FERROUS SULFATE 325 MG TAB PO SCH (08:03)
[2017-09-18] MEDS: GUAIFENESIN 600 MG TABCR PO PRN (08:03)
[2017-09-18] MEDS: LACTOBACILLUS ACIDOPHILUS (FLORANEX) TAB PO SCH ×2 (08:04→11:50)
[2017-09-18] MEDS: RANITIDINE HCL 150 MG TAB PO SCH (08:04)
[2017-09-18] MEDS: FLUTICASONE/SALMETEROL 250/50 (ADVAIR) 14 PUFF/1 INHALER INH SCH (08:04)
[2017-09-18] MEDS: MIDODRINE 2.5 MG TAB PO SCH ×2 (08:05→11:51)
[2017-09-18] MEDS: BusPIRone 15 MG TAB PO SCH ×2 (08:05→13:19)
[2017-09-18] MEDS: CARVEDILOL 3.125 MG TAB PO SCH (08:06)
[2017-09-18] MEDS: ASPIRIN 81 MG ECTAB PO SCH (08:06)
[2017-09-18] MEDS: DOCUSATE SODIUM 100 MG CAP PO SCH (08:07)
[2017-09-18] MEDS: SPIRONOLACTONE 25 MG TAB PO SCH (08:07)
[2017-09-18] MEDS: CLOPIDOGREL BISULFATE 75 MG TAB PO SCH (08:07)
[2017-09-18] MEDS: FUROSEMIDE 40 MG TAB PO SCH (08:07)
[2017-09-18] MEDS: CYCLOBENZAPRINE HCL 10 MG TAB PO SCH (08:08)
[2017-09-18] MEDS: INSULIN ASPART 100 UNITS/ML 3 ML PEN SC SCH ×2 (08:12→11:00)
[2017-09-18] MEDS: LIDODERM (LIDOCAINE) PATCH 5% TD SCH (08:12)
[2017-09-18 08:18] LABS: INR 1.6 (0.9-1.1)
--- NOTE | 2017-09-18 08:27 | Discharge Instructions ---
Discharge Instructions Date of Service September 18, 2017. Admission Reason for Admission: Pneumonia Discharge Discharge Diagnosis / Problem: Pneumonia Discharge Goals Goal(s): Decrease discomfort, Improve function, Increase independence, Improve disease control Activity Recommendations Activity Limitations: resume your previous activity Lifting Limitations: no more than 25 pounds, gradually increase as tolerated Exercise/Sports Limitations: rest today, gradually increase as tolerated May Resume Sexual Activity: when tolerated Shower/Bathe: no limitations Driving or Machine Use: After follow up with PCP . Instructions / Follow-Up Instructions / Follow-Up You were admitted to [facility] with shortness of breath and diagnosed with pneumonia. During your stay here you were treated with Intravenous steroids and antibiotics which were titrated to oral tablets. You were also treated with supplemental oxygen during your stay. You underwent a nocturnal oximetry test which you qualified for home oxygen therapy at night. You were also prescribed a nebulizer to use duonebs four times daily. You have been set up for oxygen and the nebulizer as an outpatient by our team. [facility] will deliver these supplies to you Medications: Continue increased dose of carvedilol 6.25 mg twice daily as per cardiology for your heart. Nortriptyline (pamelor) was increased to 50 mg at night for sleep. Please follow up with your PCP regarding this change. Continue levaquin 750 mg x 1 more day on 09/19, this will complete a 5 day course of antibiotics. Continue prednisone taper: Take 40 mg (2tabs) x 2 days, then 20 mg (1 tab) x 2 days, then 10 mg (1/2 tab ) x 2 days then stop. Finish taper on 09/24/17. Continue taking your other medications as prescribed. Appointments: Follow up with PCP within 1-2 wks, an appointment has been requested. Follow up with Cardiology, CHF clinic with Catherine Cooper on 09/26/17 at 2:45pm. You are being referred to [facility] for their CHF clinic by Dr. Sparks. Current Hospital Diet Patient's current hospital diet: AHA Diet (Heart Healthy) Discharge Diet Recommended Diet: AHA Diet (Heart Healthy) Pending Studies Studies pending at discharge: no Laboratory Results Hemoglobin A1c Test 09/14/17 05:26 Range/Units Estimated Average Glucose 128 mg/dl Hemoglobin A1c 6.1 H 4.5-5.6 % Medical Emergencies . Who to Call and When: Medical Emergencies: If at any time you feel your situation is an emergency, please call 911 immediately. . Non-Emergent Contact Non-Emergency issues call your: Primary Care Provider, Hotel Controller Call Non-Emergent contact if: you have a fever, temperature is above 100.5, your pain is not controlled, your pain is worsening, your pain is unusual for you, your pain is concerning you, you have any medication questions . Past History Medical & Surgical History: (1) Hypoxia (2) Pneumonia (3) DELICIA (obstructive sleep apnea) (4) Obesity hypoventilation syndrome (5) Chronic Diastolic Hrt Failure (6) Hypertension Nos (7) Shortness of breath (8) Hypotension . "Provider Documentation" section prepared by Joanne Price. . [place] Drug Monitoring Program Search Results: no issues identified
[2017-09-18] MEDS ORDERED: LVQ750 PO (08:36)
[2017-09-18] MEDS ORDERED: PRD20 PO (08:36)
[2017-09-18] MEDS ORDERED: GFNSR600 PO (08:36)
[2017-09-18] MEDS ORDERED: CARV6.252 PO (08:36)
[2017-09-18 08:41] LABS: CREATININE 1.22 mg/dl (0.60-1.40); POTASSIUM 4.4 mmol/L (3.5-5.1)
[2017-09-18] MEDS ORDERED: SPR25 PO (10:28)
[2017-09-18] MEDS ORDERED: NORT25CA PO (10:28)
[2017-09-18] MEDS ORDERED: SERT50TA PO (10:28)
--- NOTE | 2017-09-18 10:35 | Cardiology Follow-Up ---
Subjective Date of Service: September 18, 2017. Pt evaluation today including: conversation w/ patient, physical exam, lab review, review of studies, review of inpatient medication list, conversation w/ attending History of Present Illness He has been having a lot of difficulty with SOB at night, this may have been a combination of hypoxia from his pulmonic process, sleep apnea as well as heart failure. He had not been having much difficulty with orthostatic symptoms on his outpatient regimen which included 6.25 mg of carvedilol in the evening and 3.125 in the morning. That was decreased here to 3.125 mg twice daily. Yesterday I increased it to 6.25 mg BID. Today he feels quite well, he has no orthostatic symptoms. Social History Smoking Status: Former Smoker History of Alcohol Use: No Review of Systems Respiratory: No cough, No shortness of breath Cardiac: + edema (but stable compared to baseline), No chest pain, No palpitations Medications Cardiovascular: Item Value Date Time Carvedilol 6.25 mg 09/17/17 2100 (Coreg Tab) BID/PO 09/18/17 0806 Spironolactone 12.5 mg 09/16/17 0900 (Aldactone Tab) DAILY/PO 09/18/17 0807 Digoxin 0.125 mg 09/14/17 1600 (Lanoxin Tab) DAILY@1600/PO 09/17/17 1700 Aspirin 81 mg 09/14/17 0900 (Ecotrin Tab) QAM/PO 09/18/17 0806 Clopidogrel 75 mg 09/14/17 0900 Bisulfate QAM/PO 09/18/17 0807 (plAVix TAB) Furosemide 40 mg 09/14/17 0900 (Lasix Tab) DAILY/PO 09/18/17 0807 Atorvastatin 80 mg 09/13/17 2100 Calcium HS/PO 09/17/17 2056 (Lipitor Tab) Warfarin Sodium 2.5 mg 09/13/17 1900 (Coumadin Tab) SuTuThSa@1600/PO 09/13/17 195 Midodrine 5 mg 09/13/17 1900 (Proamatine Tab) TID@0700,1200,1700/PO 09/18/17 0805 Objective Vital Signs Past 12 Hours Date Time Temp Pulse Resp B/P (MAP) Pulse Ox O2 Delivery O2 Flow Rate FiO2 09/18/17 08:00 36.8 116 18 126/86 (99) 96 Room Air 2.0 Nasal Cannula 09/18/17 08:00 92 Room Air 2.0 09/18/17 04:00 Nasal Cannula 2.0 09/18/17 03:33 36.4 110 23 123/83 (96) 98 3.0 114 131/90 (104) 114 125/91 (102) 09/17/17 23:59 90 Room Air 09/17/17 23:01 36.5 99 20 101/74 (83) 90 Room Air Last Recorded Weight-Kilograms: 113.400 Physical Exam Constitutional: General Apperance: overweight Level of Distress: NAD Ambulation: ambulating normally Lungs: Auscultation: breath sounds normal Cardiovascular: Heart Auscultation: RRR Extremities: no edema Data Laboratory Results: Last 24 Hours Test 09/17/17 11:19 09/17/17 16:33 09/17/17 20:34 09/18/17 06:54 Bedside Glucose 156 mg/dl 127 mg/dl 189 mg/dl 118 mg/dl Test 09/18/17 07:41 Prothrombin Time 16.9 SECONDS Prothromb Time International Ratio 1.6 Sodium Level 137 mmol/L Potassium Level 4.4 mmol/L Chloride Level 103 mmol/L Carbon Dioxide Level 28 mmol/L Anion Gap 6.0 mmol/L Blood Urea Nitrogen 29 mg/dl Creatinine 1.22 mg/dl Est Creatinine Clear Calc Drug Dose 88.4 ml/min Estimated GFR () 75.3 Estimated GFR (Non- 64.9 BUN/Creatinine Ratio 23.5 Random Glucose 100 mg/dl Calcium Level 8.0 mg/dl Telemetry reviewed: Sinus rhythm, sinus tachycardia and frequent PVCs Assessment and Plan 1. Cardiomyopathy: He has a long-standing cardiomyopathy which we have not been able to treat adequately due to difficulty tolerating medications. We have been very gradually trying to up titrate his beta blockade, he has been able to tolerate 6.25 mg of carvedilol in the evening and 3.12 5 in the morning prior to admission. I am hopeful that he can tolerate a slight increase in dose , he is now on 6.25 mg twice daily and seems to be doing well on it. I will also schedule him to see the heart failure team at [facility] to see if they have any other thoughts. 2. Shortness of breath and nocturnal dyspnea: This is probably a combination of his congestive heart failure symptoms as well as sleep apnea, although it has been worse recently. 3. Orthostasis: We have had difficulty with orthostasis for some time, but I am hopeful that as we gradually titrate his medications that he will be able to tolerate it. Orthostatic vital signs yesterday showed no significant abnormalities. Thank you for allowing me to participate in his care.
[2017-09-18 11:20] VITALS: BP 114/81; PULSE 116; TEMP 36.7; O2SAT 94
[2017-09-18] MEDS ORDERED: FRRS300 PO (11:32)
--- NOTE | 2017-09-18 11:32 | Discharge Summary ---
Discharge Summary Date of Service September 18, 2017. Discharge Summary Admission Date: Sep 13, 2017 at 16:51 Discharge Date: September 18, 2017 Discharge Disposition: Home with services Principal Diagnosis: Pneumonia, Acute hypoxic respiratory failure, COPD exacerbation Problems/Secondary Diagnoses: Medical Problems: (1) Atrial Fibrillation (2) Chronic Diastolic Hrt Failure (3) Coronary Atherosclerosis Of [place] Coronary Vessel (4) Diastolic CHF (5) Hypertension Nos (6) Hypotension (7) Influenza A (8) Mixed Hyperlipidemia (9) NSTEMI (non-ST elevated myocardial infarction) (10) Obesity hypoventilation syndrome (11) DELICIA (obstructive sleep apnea) (12) Pneumonia (13) Pre-syncope (14) Systolic CHF Immunizations: Have You Had Influenza Vaccine: Unknown History of Tetanus Vaccine?: Unknown History of Pneumococcal: Unknown History of Hepatitis B Vaccine: Unknown Procedures: (CHEST FOR PE) ANGIO WITH 09/13/17 IMPRESSION: 1. No evidence for pulmonary embolus. 2. Mild bibasilar parenchymal infiltrative versus contusion-type change. ABD/PELVIS IV CONTRAST ONLY 09/13/17 IMPRESSION: 1. No acute process of the abdomen or pelvis. 2. Nonobstructive bowel pattern. 3. 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 4. Several old healed rib fractures bilaterally. Consultations: Cardiology Medication Reconciliation New Medications: Ferrous Sulfate (Ferrous Sulfate) 325 Mg Tab 325 MG PO BIDM for 30 Days, #60 TAB Guaifenesin Ext Rel (Mucinex Ext Rel) 600 Mg Tabcr 600 MG PO Q12 PRN for Cough for 7 Days, #14 DOSE Levofloxacin (Levofloxacin) 750 Mg Tab 750 MG PO DAILY@1700 for 1 Day, #1 TAB Prednisone (Prednisone) 20 Mg Tab 60 MG PO QAM for 6 Days, #7 TAB Take 40 mg (2tabs) x 2 days, then 20 mg (1 tab) x 2 days, then 10 mg (1/2 tab) x 2 days then stop. Spironolactone (Spironolactone) 25 Mg Tab 12.5 MG PO DAILY for 30 Days, #15 TAB Changed Medications: Carvedilol (Coreg) 6.25 Mg Tab 1 TAB PO BID for 30 Days, #60 TAB 1 Refill (Changed from: Carvedilol (Coreg) 3.125 Mg Tab 6.25 Mg PO QPM) Nortriptyline (Pamelor) 25 Mg Cap 50 MG PO HS for 30 Days, #60 CAP (Changed from: 25 MG) Sertraline (Zoloft) 50 Mg Tab 50 MG PO QAM for 30 Days, #30 TAB (Changed from: HS) Continued Medications: Albuterol Hfa (Ventolin Hfa) 200 Puffs/21001 Mcg Aers 2 PUFFS INH Q6H PRN for Shortness of Breath, INHALER Aspirin (Aspirin Ec) 81 Mg Tab 81 MG PO QAM Atorvastatin (Lipitor) 80 Mg Tab 80 MG PO HS, TAB Buspirone Hcl (Buspar) 15 Mg Tab 15 MG PO TID, TAB Clopidogrel (Plavix) 75 Mg Tab 75 MG PO QAM, TAB Cyclobenzaprine Hcl (Flexeril) 10 Mg Tab 10 MG PO BID, TAB Digoxin (Digoxin) 0.125 Mg Tab 0.125 MG PO QAM Fluticasone Prop/Salmeterol (Advair Diskus 250/50 60 Dose) 1 Ea Aerp 1 PUFF INH BID, INHALER Furosemide (Furosemide) 40 Mg Tab 40 MG PO DAILY Ipratropium-Albuterol (Combivent Respimat) 1 Aer Aer 1 PUFF INH QID, INH Loratadine (Claritin) 10 Mg Tab 10 MG PO DAILY, TAB Midodrine Hcl (Midodrine Hcl) 5 Mg Tab 5 MG PO TID Mirtazapine Soltab (Remeron Soltab) 30 Mg Soltab 60 MG PO HS, TAB Oxycodone/Acetaminophen 10MG/325MG (Percocet 10MG/325MG) Tab 1 TAB PO TID PRN for Pain, TAB Pantoprazole (Pantoprazole Sodium) 40 Mg Tab 40 MG PO DAILY Polyethylene (Polyethylene Glycol 3350) 527 Gm Soln 17 GM PO DAILY PRN for Constipation Ranitidine (Zantac) 150 Mg Tab 150 MG PO BID, TAB Spironolactone (Spironolactone) 25 Mg Tab 25 MG PO DAILY for 30 Days Tiotropium [place] (Spiriva Handihaler) 30 Puff/540 Mcg Aerp 1 CAP INH QPM, CAP Triamcinolone Acet (Triamcinolone Acetonide) 240 Appln/80 Gm Oint 1 APPLN TD UD PRN for Itching APPLIES TO SWOLLEN LEGS Warfarin Sod (Jantoven) 3 Mg Tab 3 MG PO 3XWK, TAB FRIDAY, FRIDAY, FRIDAY Warfarin Sod (Jantoven) 2.5 Mg Tab 2.5 MG PO 4XWK, TAB FRIDAY, FRIDAY, FRIDAY, FRIDAY Discontinued Medications: Carvedilol (Coreg) 3.125 Mg Tab 3.125 MG PO QAM, TAB Discharge Exam The patient was seen and examined this morning. Pt reports doing well this morning. His breathing has improved and does not feel as short of breath with ambulation. He is coughing some mucous up but is becoming more clear and thinner. Discussion was held regarding noc ox test and how the pt qualified for oxygen. He had tested for a CPAP about 8-9 years ago but did not tolerate the mask and only wore it for about 3 days. He is agreeable to using the nightly O2 via [place]. We also discussed benefit of him using a nebulizer and he is agreeable to this. He denies any other acute complaints at this time. ROS: Constitutional: No fever, No chills, No sweats Eyes: No eye pain, No redness ENT: No nasal symptoms, No sore throat, No trouble swallowing Respiratory: see HPI. Cardiovascular: + faint edema (but stable compared to baseline), No chest pain, No palpitations Abdomen: No pain, No nausea, No vomiting, No diarrhea, No constipation Musculoskeletal: No joint pain, No swelling Neurologic: No weakness, No numbness/tingling PE: General Appearance: WD/WN, no apparent distress, + obese (morbid, BMI 31.7) Eyes: PERRL, EOMI ENT: hearing grossly normal, pharynx normal, MMM Neck: supple, no JVD Respiratory/Chest: lungs with adequate breath sounds except mildly diminished in the left side, no adventitious breath sounds, no respiratory distress, no accessory muscle use Cardiovascular: Regular, +tachycardia (low 100s), no JVD Abdomen: normal bowel sounds, non tender, soft Extremities: non-tender, no calf tenderness, + pedal edema (trace pitting BLE, slightly worse in the LLE) Neurologic/Psychiatric: alert, normal mood/affect, oriented x 3 Skin: normal color, warm/dry Hospital Course Mr. Morgan is a 56-year-old man with a complex past medical history including ischemic cardiomyopathy and ventricular tachycardia s/p dual-chamber ICD, CAD post RCA PCI with 2 JUVE 04/16/2017, PAD with known lower extremity arterial aneurysm status post endovascular stenting and [id number] bypass surgery, prior recurrent VTE, paroxysmal atrial fibrillation, long-term anticoagulation, orthostatic hypotension, anemia, questionable seizure disorder, and tobacco abuse with severe COPD who presents with acute hypoxic respiratory failure secondary to bilateral lower lobe pneumonia, multiple falls, presyncope with orthostatic hypotension. Acute hypoxic respiratory failure/acute exacerbation of COPD-now weaned off oxygen Bilateral basal pneumonia-with productive sputum and cough for several days Presyncope secondary to hypoxemia and orthostatic hypotension-improved blood pressures with receiving IV fluids initially - neg flu swab - Continue levofloxacin PO (started 09/13) - finish on 09/19 - BCx NGTD - Continue bronchodilators, Spiriva, inhaled corticosteroid - Switched IV steroids to PO prednisone 60 mg on 09/17: continue taper down to 40 mg x 2 d, 20 mg x 2d and 10 mg x 2d- finish taper on 09/24 - Will also prescribe the patient a nebulizer machine and duoneb treatments QID for pneumonia and hypoxia as he would benefit from this - Noc ox failed overnight -attempted to obtain 2L O2 via [place] HS - insurance will not cover due to hx of DELICIA however, he also did qualify for o2 with a 2 step exercise however with cost being $100 per month. Cm looking into this. - Pt unable to tolerate CPAP - Rechecked 2 view CXR - showing atelectasis, no signs of consolidation or pulmonary edema. CAD Chronic systolic CHF s/p AICD, currently not in exacerbation. Echo from 05/2017 with EF 20-25% - Continue Lipitor, continue Lasix 40 mg PO daily - dry weight of 235lbs is pts baseline. As outpt not on specific fluid restriction although he does avoid high sodium diet. - Increase Coreg 6.25 BID per cardiology - appreciate recs - Cont Aldactone from 25 mg daily to 12.5 mg daily at time of discharge ?Vtach - resolved, no new events on tele overnight - persistent tachycardia with 15 sec run of Vtach overnight on tele on 09/16. - increase coreg as above - Orthostatic BPs have been negative. Orthostatic [id number] issue- stable -Continue Midrin Paroxysmal atrial fibrillation/DVT/PE in the past-in sinus tachycardia here secondary to acute illness -Continue Coreg as above - resume Coumadin as supratherapeutic INR now resolved- today 1.6 - resume outpatient dosing of coumadin. -Follow PT/INR Fall risk - Likely due to hypoxia and hypotension - PT/OT on board - Continue midodrine as above - Currently benefit of anticoagulation seems to be outweighs risks especially if his fall risk will be controlled Depression/anxiety-stable - Continue home meds - Increased nortriptyline to 50 mg HS for sleep. 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 Pt in agreement with this. Iron deficiency anemia-hemoglobin is stable at 10.4, is considerably microcytic with an elevated RDW, iron studies show transferrin saturation of only 4%, ferritin low at 20. -near baseline - Hemmocult neg - Needs outpatient GI evaluation. - Start ferrous sulfate 325 mg p.o. BID during stay, continue DVT ppx: Coumadin resumed CODE: Full code Disposition: From home, lives with . discharge to home today Total Time Spent: Greater than 30 minutes This includes examination of the patient, discharge planning, medication reconciliation, and communication with other providers. Discharge Instructions Please refer to the electronic Patient Visit Report (Discharge Instructions) for additional information. Follow-Up Follow up with your Primary Care Provider within 1 week. Follow up with Cardiology, CHF clinic with Catherine Cooper on 09/26/17 at 2:45pm Additional Copies To Hilda Marie M.D.
--- NOTE | 2017-09-18 11:53 | DIAGNOSTIC IMAGING REPORT ---
CHEST 2 VIEWS ROUTINE HISTORY: 56 years-old Male assess left base for diminished breath sounds diminished breath sounds of the left lung base COMPARISON: Chest radiograph 06/09/2017 TECHNIQUE: PA and lateral views of the chest FINDINGS: Cardiac silhouette is again enlarged. Left subclavian pacer/AICD appears unchanged. Coronary arterial stent graft noted. Left hemidiaphragmatic elevation with linear subsegmental left basilar opacities. No pneumothorax, large pleural effusion or overt pulmonary edema. Healed chronic fracture of the posterior right seventh rib. Degenerative changes of the shoulders and spine. IMPRESSION: 1. Linear subsegmental left basilar opacities suggest atelectasis/scarring with left hemidiaphragm elevation. 2. Cardiomegaly without overt pulmonary edema. The above report was generated using voice recognition software. It may contain grammatical, syntax or spelling errors. Electronically signed by: Keaton Schuler M.D. 09/18/2017 11:52 AM Dictated Date/Time: 09/18/2017 11:50 AM
[2017-09-18 11:58] VITALS: BP 126/86; TEMP 36.8; O2SAT 96
[2017-09-18 12:00] VITALS: O2SAT 92
[2017-09-18 14:15] VITALS: PULSE 112; O2SAT 90
[2017-09-18] MEDS ORDERED: OXGN (15:26)
== END 2017-09-18 14:47 | disposition home health service (06) | DRG 193 ==
LOC: EDBD 12:00 → C.EDB 12:01 → C.2T 16:51 → ENRESERV 17:06
PROVIDERS: ADMIT Internal Medicine; ATTEND Internal Medicine
DX: J18.9 Pneumonia, unspecified organism (principal); J96.01 Acute respiratory failure with hypoxia; J44.0 Chronic obstructive pulmonary disease with (acute) lower respiratory infection; J44.1 Chronic obstructive pulmonary disease with (acute) exacerbation; I47.2 Ventricular tachycardia; I50.22 Chronic systolic (congestive) heart failure; E86.0 Dehydration; I95.1 Orthostatic hypotension; S30.1XXA Contusion of abdominal wall, initial encounter; R55 Syncope and collapse; D50.9 Iron deficiency anemia, unspecified; G47.33 Obstructive sleep apnea (adult) (pediatric); I11.0 Hypertensive heart disease with heart failure; I25.10 Atherosclerotic heart disease of native coronary artery without angina pectoris; I25.2 Old myocardial infarction; I25.5 Ischemic cardiomyopathy; I48.0 Paroxysmal atrial fibrillation; E78.2 Mixed hyperlipidemia; F32.9 Major depressive disorder, single episode, unspecified; F41.9 Anxiety disorder, unspecified; Z51.81 Encounter for therapeutic drug level monitoring; Z79.899 Other long term (current) drug therapy; Z79.01 Long term (current) use of anticoagulants; Z79.82 Long term (current) use of aspirin; Z79.02 Long term (current) use of antithrombotics/antiplatelets; Z91.81 History of falling; Z95.810 Presence of automatic (implantable) cardiac defibrillator; Z86.711 Personal history of pulmonary embolism; Z86.718 Personal history of other venous thrombosis and embolism; Z95.5 Presence of coronary angioplasty implant and graft; Z87.891 Personal history of nicotine dependence; Z88.8 Allergy status to other drugs, medicaments and biological substances; Z88.6 Allergy status to analgesic agent; Z91.041 Radiographic dye allergy status; W19.XXXA Unspecified fall, initial encounter; Y99.8 Other external cause status

== ENCOUNTER 2017-10-01 13:52 | Emergency (ER) | payer OTHER ==
[~2017-10-01] VITALS: Ht 177.8 cm; Wt 124.7 kg
[~2017-10-01 13:52] MED LIST changes: +CARV6.252 PO; -CRG3125 PO; +FRRS300 PO; +GFNSR600 PO; +LSX40 PO; +LVQ750 PO; +MIDO5TAB PO; +MRLP527 PO; +OXGN; +OXYC-106 PO; -OXYC10TA80 PO; +PANT40TA2 PO; +PRD20 PO; -PRMT25 PO; +SPR25 PO; +TRMO180 TD; +WARF2.5T8 PO; +WARF3TAB6 PO; -WARF4TAB43 PO
[2017-10-01 14:22] VITALS: Ht 177.8 cm; Wt 124.7 kg
--- NOTE | 2017-10-01 14:55 | DIAGNOSTIC IMAGING REPORT ---
CHEST ONE VIEW PORTABLE HISTORY: 56 years-old Male ams acutely altered mental status COMPARISON: Chest radiographs 09/18/2017 TECHNIQUE: Portable AP view of the chest FINDINGS: Cardiac silhouette is moderately enlarged. Left subclavian pacer/AICD appears unchanged. No pneumothorax, overt pulmonary edema or large pleural effusion. Unchanged left hemidiaphragmatic elevation with left basilar linear subsegmental opacities suggesting atelectasis/scarring. Remote healed right-sided rib fractures. Degenerative changes of the shoulders and spine. IMPRESSION: No acute process. The above report was generated using voice recognition software. It may contain grammatical, syntax or spelling errors. Electronically signed by: Keaton Schuler M.D. 10/01/2017 2:54 PM Dictated Date/Time: 10/01/2017 2:51 PM
[2017-10-01 15:07] LABS: BASO % 0.2 %; BASO ABS # 0.02 K/uL (0-0.2); EOS % 0.1 %; EOS ABS # 0.01 K/uL (0-0.5); HEMATOCRIT 35.3 % (42-52); HEMOGLOBIN 11.3 g/dL (14.0-18.0); IG# 0.13 K/uL (0.00-0.02); LYMPH ABS # 0.82 K/uL (1.2-3.4); MEAN CELL VOLUME 82.5 fL (80-100); MEAN CORPUSCULAR HEMOGLOBIN 26.4 pg (25-34); MEAN PLATELET VOLUME 9.7 fL (7.4-10.4); MONO % 16.4 %; MONO ABS # 1.35 K/uL (0.11-0.59); NEUT % 71.7 %; NEUT ABS # 5.91 K/uL (1.4-6.5); NUCLEATED RED BLOOD CELL ABS 0.04 K/uL (0-0); PLATELET COUNT 190 K/uL (130-400); RED CELL DISTRIBUTION WIDTH CV 23.1 % (11.5-14.5); RED CELL DISTRIBUTION WIDTH SD 68.6 fL (36.4-46.3); WHITE BLOOD COUNT 8.24 K/uL (4.8-10.8)
--- NOTE | 2017-10-01 15:08 | DIAGNOSTIC IMAGING REPORT ---
HEAD WITHOUT CONTRAST (CT) CLINICAL HISTORY: 56 years-old Male with fall . Acute head injury status post fall TECHNIQUE: Multiple axial CT images of the head were obtained without contrast. A dose lowering technique was utilized adhering to the principles of ALARA. COMPARISON: CT head 05/22/2016. FINDINGS: No acute intracranial hemorrhage, midline shift, intracranial mass, hydrocephalus, territorial ischemia or abnormal extra-axial collection. The calvarium is intact. The paranasal sinuses, mastoid air cells, and middle ear cavities are clear. Incidental note is made of bilateral exophthalmos. IMPRESSION: 1. No acute intracranial abnormality identified. 2. Incidental note is made of bilateral exophthalmos. The above report was generated using voice recognition software. It may contain grammatical, syntax or spelling errors. Electronically signed by: Keaton Schuler M.D. 10/01/2017 3:07 PM Dictated Date/Time: 10/01/2017 3:03 PM
--- NOTE | 2017-10-01 15:16 | DIAGNOSTIC IMAGING REPORT ---
CERVICAL SPINE W/O CT DOSE: 1795.58 mGy.cm CLINICAL HISTORY: 56 years-old Male with fall. Acute neck pain status post fall COMPARISON: CT head of same day TECHNIQUE: Multiple axial CT images of the cervical spine were obtained without contrast. A dose lowering technique was utilized adhering to the principles of ALARA. FINDINGS: Slight reversal of the lordotic curvature centered at C5-C6. Moderate to severe intervertebral disc space narrowing at C6-C7 with posterior disc osteophyte complex formation. There is 3 mm anterolisthesis C3 on C4, C4 on C5 and C5 on C6, likely degenerative with severe multilevel facet arthrosis. Central canal and foraminal narrowing is better assessed by MRI. Severe left-sided foraminal narrowing at C5-C6 and C6-C7. There is no acute fracture or subluxation identified. Bones appear mildly demineralized. Partially imaged pacer leads within the region of the left subclavian vein. No pneumothorax. Soft tissues are unremarkable. Atherosclerosis of the bilateral carotid bulbs. IMPRESSION: 1. No acute cervical spine fracture identified. 2. Degenerative changes as above. The above report was generated using voice recognition software. It may contain grammatical, syntax or spelling errors. Electronically signed by: Keaton Schuler M.D. 10/01/2017 3:15 PM Dictated Date/Time: 10/01/2017 3:11 PM
[2017-10-01 15:54] LABS: ALBUMIN 3.2 gm/dl (3.4-5.0); ALKALINE PHOSPHATASE 74 U/L (45-117); ALT/SGPT 1849 U/L (12-78); AST/SGOT 2689 U/L (15-37); BLOOD UREA NITROGEN 21 mg/dl (7-18); CALCIUM 8.8 mg/dl (8.5-10.1); CARBON DIOXIDE 25 mmol/L (21-32); CREATININE 1.33 mg/dl (0.60-1.40); GLUCOSE 112 mg/dl (70-99); LIPASE 92 U/L (73-393); POTASSIUM 4.3 mmol/L (3.5-5.1); SODIUM 129 mmol/L (136-145); TOTAL PROTEIN 7.4 gm/dl (6.4-8.2)
[2017-10-01] MEDS ORDERED: FERR1TAB13 PO (15:54)
[2017-10-01] MEDS ORDERED: SPIR25TA PO (15:54)
[2017-10-01] MEDS ORDERED: SPIR25TA89 PO (15:54)
[2017-10-01] MEDS ORDERED: CARV6.25 PO (15:54)
[2017-10-01] MEDS ORDERED: OXGN (15:54)
[2017-10-01] MEDS ORDERED: NORT50CA PO (15:54)
[2017-10-01] MEDS ORDERED: SERT50TA PO (15:54)
[2017-10-01] MEDS ORDERED: GUAI1TAB55 PO (15:54)
[2017-10-01 16:39] LABS: INR 5.7 (0.9-1.1)
[2017-10-01 17:03] VITALS: TEMP 36.7
--- NOTE | 2017-10-01 17:21 | DIAGNOSTIC IMAGING REPORT ---
ABDOMEN AND PELVIS CT WITHOUT CONTRAST CT DOSE: 884.26 mGy.cm HISTORY: Acutely elevated LFTs with back pain status post acute fall elevated lfts 1999 TECHNIQUE: Multiaxial CT images of the abdomen and pelvis were performed without contrast. A dose lowering technique was utilized adhering to the principles of ALARA. COMPARISON STUDY: CT abdomen and pelvis 09/13/2017 FINDINGS: Motion degraded exam. Partially imaged groundglass and consolidative opacities about the left lung base with groundglass densities of the right lung base appear unchanged from comparison suggesting atelectasis/scarring with superimposed pneumonitis difficult to exclude. There is no pneumatosis or pneumoperitoneum identified. Imaged inferior cardiac chambers are markedly enlarged with pacer leads overlying the right heart. Coronary arterial calcifications are noted. There may be minimal pericholecystic edema, obscured by motion artifact. Hepatic steatosis. Spleen and adrenal glands are unremarkable. Moderate generalized pancreatic atrophy. Minimal stranding with trace free fluid of the left upper abdomen layering along the left pericolic gutter. Mild nonspecific bilateral perinephric stranding. No renal calculi or obstructive uropathy. Mildly prominent prostate with central calcifications. The bladder is mildly distended. Moderate atherosclerosis of the aorta with ectasia just proximal to the iliac bifurcation, 2.9 x 2.8 cm. Atherosclerosis with fusiform dilation involving the bilateral common iliac arteries, 2.9 cm on the right and 3.2 cm on the left. No bulky adenopathy. No small bowel obstruction. Moderate stool volume throughout the colon. Normal appendix. Soft tissues are unremarkable. Degenerative changes of the spine. Multilevel remote appearing compression deformities without retropulsion. IMPRESSION: 1. Motion degraded exam without acute intra-abdominal or intrapelvic abnormality identified. 2. Groundglass and consolidative opacities about the left lung base with right basilar groundglass densities suggest scarring/atelectasis or pneumonitis . 3. Hepatic steatosis. 4. Possible pericholecystic edema, obscured by artifact. If of further clinical concern, right upper quadrant ultrasound could be considered. 5. 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 6. Additional findings as above. Electronically signed by: Keaton Schuler M.D. 10/01/2017 5:20 PM Dictated Date/Time: 10/01/2017 5:11 PM
[2017-10-01 17:32] LABS: INR 5.6 (0.9-1.1)
[2017-10-01] MEDS ORDERED: ACETYLCYSTEINE IV 21 HOUR REGIMEN IV STA (17:36)
[2017-10-01] MEDS ORDERED: ACETYLCYSTEINE IV STA (17:40)
[2017-10-01] MEDS ORDERED: DEXTROSE 5% IV STA (17:40)
[2017-10-01] MEDS ORDERED: PHYTONADIONE INJ 10 MG in SODIUM CHLORIDE 0.9% 50ML 50 ML IV ONE (17:45)
[2017-10-01] MEDS ORDERED: LEVAQUIN 750MG / 150ML D5W IV STA (18:02)
[2017-10-01] MEDS ORDERED: PIPERACILL/TAZOBAC IV 3.375 GM in D5W 100 ML IV ONE (18:15)
--- NOTE | 2017-10-01 18:39 | EMERGENCY ROOM VISIT NOTE ---
History Report prepared by Mariama: Chaim Powres Under the Supervision of: Dr. Delfin Boyer D.O. First contact with patient: 13:53 Stated Complaint: FALL/NECK-BACK PAIN History of Present Illness The patient is a 56 year old male with a history of CHF who presents to the Emergency Room via EMS with complaints of a sudden mechanical fall that occurred last night. Per EMS, the patient was discharged from this hospital on the 18 of September, after he came in with shortness of breath and pneumonia. The patient noted that he fell last night onto his right side. He says that he did not lose consciousness on the fall, but ever since the fall he has been complaining of neck pain and back pain, primarily on the left side. He felt a bit short of breath earlier today which is a normal thing for him and he would put oxygen on, but he did not put it on today. Per EMS, the patient developed chest tightness earlier today which has subsided. The patient states that he has been very lightheaded and nauseous today, and can't keep his balance when walking. He says that he is very tired because he did not sleep last night due to anxiety. He notes no recreational drug or alcohol use. The patient was given Zofran and Fentanyl by EMS. The patient is on Warfarin. He denies any current chest pain, shortness of breath, vomiting, or diarrhea. He says that he takes Percocet for his pain, and so far today has taken 4, 50 mg tablets. Source of History: patient, EMS Onset: Last night Position: other (global) Quality: other (mechanical fall) Timing: other (sudden) Associated Symptoms: + neck pain, + chest pain (tightness - is gone now), + SOB (earlier today), + nausea (and lightheadedness), + back pain, No LOC, No vomiting, No diarrhea Review of Systems See HPI for pertinent positives & negatives. A total of 10 systems reviewed and were otherwise negative. Past Medical & Surgical Medical Problems: (1) Atrial Fibrillation (2) Chronic Diastolic Hrt Failure (3) Coronary Atherosclerosis Of [place] Coronary Vessel (4) Diastolic CHF (5) Hypertension Nos (6) Hypotension (7) Influenza A (8) Mixed Hyperlipidemia (9) NSTEMI (non-ST elevated myocardial infarction) (10) Obesity hypoventilation syndrome (11) DELICIA (obstructive sleep apnea) (12) Pneumonia (13) Pre-syncope (14) Systolic CHF Family History Patient reports no known family medical history. Social History Smoking Status: Former Smoker Alcohol Use: none Drug Use: heroin Marital Status: single Occupation Status: disabled Current/Historical Medications Scheduled Aspirin (Aspirin Ec), 81 MG PO QAM Atorvastatin (Lipitor), 80 MG PO HS Buspirone Hcl (Buspar), 15 MG PO TID Carvedilol (Coreg), 6.25 MG PO BID Clopidogrel (Plavix), 75 MG PO QAM Cyclobenzaprine Hcl (Flexeril), 10 MG PO BID Digoxin (Digoxin), 0.125 MG PO QAM Ferrous Sulfate (Kp Ferrous Sulfate), 325 MG PO BIDM Fluticasone Prop/Salmeterol (Advair Diskus 250/50 60 Dose), 1 PUFF INH BID Furosemide (Furosemide), 40 MG PO DAILY Home O2 Therapy (Oxygen), 2 LITERS NA HS Ipratropium-Albuterol (Combivent Respimat), 1 PUFF INH QID Loratadine (Claritin), 10 MG PO DAILY Midodrine Hcl (Midodrine Hcl), 5 MG PO TID Mirtazapine Soltab (Remeron Soltab), 60 MG PO HS Nortriptyline Hcl (Pamelor), 50 MG PO HS Pantoprazole (Pantoprazole Sodium), 40 MG PO DAILY Ranitidine (Zantac), 150 MG PO BID Sertraline (Zoloft), 50 MG PO QAM Spironolactone (Aldactone), 12.5 MG PO QAM Spironolactone (Aldactone), 25 MG PO QAM Tiotropium [place] (Spiriva Handihaler), 1 CAP INH QPM Warfarin Sod (Jantoven), 3 MG PO 3XWK Warfarin Sod (Jantoven), 2.5 MG PO 4XWK Scheduled PRN Albuterol Hfa (Ventolin Hfa), 2 PUFFS INH Q6H PRN for Shortness of Breath Guaifenesin Ext Rel (Mucinex Ext Rel), 600 MG PO Q12 PRN for Cough Oxycodone/Acetaminophen 10MG/325MG (Percocet 10MG/325MG), 1 TAB PO TID PRN for Pain Polyethylene (Polyethylene Glycol 3350), 17 GM PO DAILY PRN for Constipation Triamcinolone Acet (Triamcinolone Acetonide), 1 APPLN TD UD PRN for Itching Allergies Coded Allergies: Heparin (Verified Allergy, Severe, SEE COMMENT, 10/01/17) Reported by PT, swells up from Heparin injections. Iodinated Diagnostic Agents (Verified Allergy, Severe, swelling, hives, ) Ibuprofen (Verified Adverse Reaction, Intermediate, nausea vomiting, ) Physical Exam Vital Signs Date Time Temp Pulse Resp B/P (MAP) Pulse Ox O2 Delivery O2 Flow Rate FiO2 10/01/17 18:26 90 18 118/94 95 Nasal Cannula 2.0 10/01/17 17:57 90 18 134/85 96 Nasal Cannula 2.0 10/01/17 17:03 36.7 93 16 109/88 91 Room Air 10/01/17 15:49 91 18 115/89 97 Room Air 10/01/17 15:07 92 18 103/81 96 Nasal Cannula 2.0 10/01/17 14:22 36.8 94 18 99/80 91 Room Air Physical Exam GENERAL: sitting up in bed, disheveled, ill appearing, falls asleep quickly but awakens to voice. HEAD: normal cephalic, atraumatic EYE EXAM: normal conjunctiva, PERRL and EOM's grossly intact OROPHARYNX: no exudate, no erythema, lips, buccal mucosa, and tongue normal and mucous membranes are dry NECK: supple, no nuchal rigidity, no adenopathy, non-tender CHEST: stable to compression anteriorly and posteriorly LUNGS: clear to auscultation. Normal chest wall mechanics HEART: no murmurs, S1 normal and S2 normal ABDOMEN: abdomen soft, non-tender, normo-active bowel sounds, no masses, no rebound or guarding. PELVIS: stable to compression anteriorly and posteriorly BACK: Back is symmetrical on inspection and there is no deformity, no midline tenderness, no CVA tenderness. UPPER EXTREMITIES: full active and passive range of motion of all joints without tenderness to palpation LOWER EXTREMITIES: full active and passive range of motion of all joints without tenderness to palpation NEURO EXAM: Awake alert oriented to person place or time falls asleep quickly, cranial nerves II-XII intact, slow speech, no weakness of arms, no weakness of legs. No drift. Finger to nose intact. Gross sensation intact. Medical Decision & Procedures ER Provider Diagnostic Interpretation: Radiology results as stated below per my review and the radiologist's interpretation: HEAD WITHOUT CONTRAST (CT) CLINICAL HISTORY: 56 years-old Male with fall . Acute head injury status post fall TECHNIQUE: Multiple axial CT images of the head were obtained without contrast. A dose lowering technique was utilized adhering to the principles of ALARA. COMPARISON: CT head 05/22/2016. FINDINGS: No acute intracranial hemorrhage, midline shift, intracranial mass, hydrocephalus, territorial ischemia or abnormal extra-axial collection. The calvarium is intact. The paranasal sinuses, mastoid air cells, and middle ear cavities are clear. Incidental note is made of bilateral exophthalmos. IMPRESSION: 1. No acute intracranial abnormality identified. 2. Incidental note is made of bilateral exophthalmos. The above report was generated using voice recognition software. It may contain grammatical, syntax or spelling errors. Electronically signed by: Keaton Schuler M.D. 10/01/2017 3:07 PM Dictated Date/Time: 10/01/2017 3:03 PM CHEST ONE VIEW PORTABLE HISTORY: 56 years-old Male ams acutely altered mental status COMPARISON: Chest radiographs 09/18/2017 TECHNIQUE: Portable AP view of the chest FINDINGS: Cardiac silhouette is moderately enlarged. Left subclavian pacer/AICD appears unchanged. No pneumothorax, overt pulmonary edema or large pleural effusion. Unchanged left hemidiaphragmatic elevation with left basilar linear subsegmental opacities suggesting atelectasis/scarring. Remote healed right-sided rib fractures. Degenerative changes of the shoulders and spine. IMPRESSION: No acute process. The above report was generated using voice recognition software. It may contain grammatical, syntax or spelling errors. Electronically signed by: Keaton Schuler M.D. 10/01/2017 2:54 PM Dictated Date/Time: 10/01/2017 2:51 PM CERVICAL SPINE W/O CT DOSE: 1795.58 mGy.cm CLINICAL HISTORY: 56 years-old Male with fall. Acute neck pain status post fall COMPARISON: CT head of same day TECHNIQUE: Multiple axial CT images of the cervical spine were obtained without contrast. A dose lowering technique was utilized adhering to the principles of ALARA. FINDINGS: Slight reversal of the lordotic curvature centered at C5-C6. Moderate to severe intervertebral disc space narrowing at C6-C7 with posterior disc osteophyte complex formation. There is 3 mm anterolisthesis C3 on C4, C4 on C5 and C5 on C6, likely degenerative with severe multilevel facet arthrosis. Central canal and foraminal narrowing is better assessed by MRI. Severe left-sided foraminal narrowing at C5-C6 and C6-C7. There is no acute fracture or subluxation identified. Bones appear mildly demineralized. Partially imaged pacer leads within the region of the left subclavian vein. No pneumothorax. Soft tissues are unremarkable. Atherosclerosis of the bilateral carotid bulbs. IMPRESSION: 1. No acute cervical spine fracture identified. 2. Degenerative changes as above. The above report was generated using voice recognition software. It may contain grammatical, syntax or spelling errors. Electronically signed by: Keaton Schuler M.D. 10/01/2017 3:15 PM Dictated Date/Time: 10/01/2017 3:11 PM [address]EN AND PELVIS CT WITHOUT CONTRAST CT DOSE: 884.26 mGy.cm HISTORY: Acutely elevated LFTs with back pain status post acute fall elevated lfts 2000 TECHNIQUE: Multiaxial CT images of the abdomen and pelvis were performed without contrast. A dose lowering technique was utilized adhering to the principles of ALARA. COMPARISON STUDY: CT abdomen and pelvis 09/13/2017 FINDINGS: Motion degraded exam. Partially imaged groundglass and consolidative opacities about the left lung base with groundglass densities of the right lung base appear unchanged from comparison suggesting atelectasis/scarring with superimposed pneumonitis difficult to exclude. There is no pneumatosis or pneumoperitoneum identified. Imaged inferior cardiac chambers are markedly enlarged with pacer leads overlying the right heart. Coronary arterial calcifications are noted. There may be minimal pericholecystic edema, obscured by motion artifact. Hepatic steatosis. Spleen and adrenal glands are unremarkable. Moderate generalized pancreatic atrophy. Minimal stranding with trace free fluid of the left upper abdomen layering along the left pericolic gutter. Mild nonspecific bilateral perinephric stranding. No renal calculi or obstructive uropathy. Mildly prominent prostate with central calcifications. The bladder is mildly distended. Moderate atherosclerosis of the aorta with ectasia just proximal to the iliac bifurcation, 2.9 x 2.8 cm. Atherosclerosis with fusiform dilation involving the bilateral common iliac arteries, 2.9 cm on the right and 3.2 cm on the left. No bulky adenopathy. No small bowel obstruction. Moderate stool volume throughout the colon. Normal appendix. Soft tissues are unremarkable. Degenerative changes of the spine. Multilevel remote appearing compression deformities without retropulsion. IMPRESSION: 1. Motion degraded exam without acute intra-abdominal or intrapelvic abnormality identified. 2. Groundglass and consolidative opacities about the left lung base with right basilar groundglass densities suggest scarring/atelectasis or pneumonitis . 3. Hepatic steatosis. 4. Possible pericholecystic edema, obscured by artifact. If of further clinical concern, right upper quadrant ultrasound could be considered. 5. 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 6. Additional findings as above. Electronically signed by: Keaton Schuler M.D. 10/01/2017 5:20 PM Dictated Date/Time: 10/01/2017 5:11 PM Laboratory Results 10/01/17 14:41 Red Blood Count 4.28, Mean Corpuscular Volume 82.5, Mean Corpuscular Hemoglobin 26.4, Mean Corpuscular Hemoglobin Concent 32.0, Mean Platelet Volume 9.7, Neutrophils (%) (Auto) 71.7, Lymphocytes (%) (Auto) 10.0, Monocytes (%) (Auto) 16.4, Eosinophils (%) (Auto) 0.1, Basophils (%) (Auto) 0.2, Neutrophils # (Auto ) 5.91, Lymphocytes # (Auto) 0.82, Monocytes # (Auto) 1.35, Eosinophils # (Auto ) 0.01, Basophils # (Auto) 0.02 10/01/17 14:41 Test 10/01/17 14:41 10/01/17 14:44 10/01/17 15:47 White Blood Count 8.24 K/uL (4.8-10.8) Red Blood Count 4.28 M/uL (4.7-6.1) Hemoglobin 11.3 g/dL (14.0-18.0) Hematocrit 35.3 % (42-52) Mean Corpuscular Volume 82.5 fL (80-100) Mean Corpuscular Hemoglobin 26.4 pg (25-34) Mean Corpuscular Hemoglobin Concent 32.0 g/dl (32-36) Platelet Count 190 K/uL (130-400) Mean Platelet Volume 9.7 fL (7.4-10.4) Neutrophils (%) (Auto) 71.7 % Lymphocytes (%) (Auto) 10.0 % Monocytes (%) (Auto) 16.4 % Eosinophils (%) (Auto) 0.1 % Basophils (%) (Auto) 0.2 % Neutrophils # (Auto) 5.91 K/uL (1.4-6.5) Lymphocytes # (Auto) 0.82 K/uL (1.2-3.4) Monocytes # (Auto) 1.35 K/uL (0.11-0.59) Eosinophils # (Auto) 0.01 K/uL (0-0.5) Basophils # (Auto) 0.02 K/uL (0-0.2) RDW Standard Deviation 68.6 fL (36.4-46.3) RDW Coefficient of Variation 23.1 % (11.5-14.5) Immature Granulocyte % (Auto) 1.6 % Immature Granulocyte # (Auto) 0.13 K/uL (0.00-0.02) Nucleated RBC Absolute Count (auto) 0.04 K/uL (0-0) Nucleated Red Blood Cells % 0.4 % Polychromasia 1+ Anisocytosis PRESENT Prothrombin Time 56.6 SECONDS (9.0-12.0) Prothromb Time International Ratio 5.6 (0.9-1.1) Venous Blood pH 7.39 (7.36-7.41) Venous Blood Partial Pressure CO2 44 mmHg (38.0-50.0) Venous Blood Partial Pressure O2 26 mmHg Venous Blood HCO3 26 mmol/L Venous Blood Oxygen Saturation < 60.0 % Venous Blood Base Excess 0.5 mEq/L Anion Gap 11.0 mmol/L (3-11) Est Creatinine Clear Calc Drug Dose 80.2 ml/min Estimated GFR () 67.8 Estimated GFR (Non- 58.5 BUN/Creatinine Ratio 15.5 (10-20) Calcium Level 8.8 mg/dl (8.5-10.1) Total Bilirubin 1.1 mg/dl (0.2-1) Direct Bilirubin 0.6 mg/dl (0-0.2) Aspartate Amino Transf (AST/SGOT) 2689 U/L (15-37) Alanine Aminotransferase (ALT/SGPT) 1849 U/L (12-78) Alkaline Phosphatase 74 U/L (45-117) Ammonia 23.5 umol/L (11-32) Troponin I < 0.015 ng/ml (0-0.045) Total Protein 7.4 gm/dl (6.4-8.2) Albumin 3.2 gm/dl (3.4-5.0) Lipase 92 U/L (73-393) Acetaminophen Level 8 ug/ml (10-30) Ethyl Alcohol mg/dL < 3.0 mg/dl (0-3) Laboratory results per my review. Medications Administered Medications (Trade) Dose Ordered Sig/Mariama Route Start Time Stop Time Status Last Admin Dose Admin Phytonadione 10 mg/Sodium Chloride 51 ml @ 102 mls/hr ONE ONCE IV 10/01/17 17:45 10/01/17 18:14 DC 10/01/17 18:00 102 MLS/HR Acetylcysteine (Acetadote Iv 21 Hour Regimen) 1 ea NOW STAT IV 10/01/17 17:36 10/01/17 17:37 DC 10/01/17 17:36 1 EA Acetylcysteine 54578 mg/Dextrose 293.75 ml @ 293.75 mls/hr NOW STAT IV 10/01/17 17:40 10/01/17 18:39 DC 10/01/17 18:29 293.75 MLS/HR Piperacillin Sod/ Tazobactam Sod 3.375 gm/Dextrose 115 ml @ 230 mls/hr NOW ONCE IV 10/01/17 18:15 10/01/17 18:44 DC 10/01/17 18:55 230 MLS/HR ECG Per My Interpretation Indication: nausea Rate (beats per minute): 92 Findings: 1st degree AV block, LBBB, left axis deviation Change: no significant change (from 09/13/17) ED Course ED COURSE: Vital signs were reviewed and showed normal vitals. The patients medical record was reviewed The above diagnostic studies were performed and reviewed. ED treatments and interventions as stated above. 1354: The patient was evaluated in room C5. A complete history and physical examination was performed. 1611: I discussed the patient with Dr. Raul Wilkinson GI. 1621: The patient denies taking any Tylenol outside of Percocet. 1646: I discussed the patient with Dr. Raul DENNEY - he says to transfer the patient. 1650: I reevaluated the patient and he says he wants to go to [facility]. 1728: I discussed the patient with Dr. Kwesi DENNEY. 1736: Acetadote IV 21 Hour Regimen 1 ea. 1740: Acetylcysteine 18,750 mg/Dextrose 293.75 ml @ 293.75 mls/hr IV. 1745: I discussed the patient with Dr. Rajeev Wilkinson rotor blade installer - he recommends discussing with the hospitalist. 1748: I discussed the patient with Dr. Manan Wilkinson [facility] hospitalist - the patient is accepted at [facility]. 1755: Upon reevaluation, the patient is resting.I discussed my findings with the patient and he understands and agrees with the treatment plan. Based on the patients age, coexisting illnesses, exam and lab findings the decision to treat as a transfer was made. The patient remained stable while under my care. The patient will be transferred to [facility] for further treatment. 1840: Acetylcysteine 6,250 mg/Dextrose 531.25 ml @ 132.813 mls/hr IV. Medical Decision Differential diagnoses includes but is not limited to toxic, metabolic, infectious, traumatic, cardiac, neurologic, hematologic, psychiatric and inflammatory etiologies. Patient is a 57-year-old male that presents to ER for dizziness and weakness associated with lethargy and a fall in the past 24 hours. He is very lethargic but does awaken to voice and is oriented to person place and time. He denies taking any Tylenol outside Percocet which he notes he is not abusing although initially said he took four this morning. He does take Coumadin and INR is elevated. LFTs are in the 2000s. T bili was only 1.1. CT of the abdomen shows some questionable pericholecystic fluid and did show some questionable pneumonia which patient was recently treated for. Based on this he was covered with broad-spectrum antibiotics. No leukocytosis. Troponin was negative. ABG was unremarkable. Discussed with our GI physicians who recommended transfer. Discussed with [facility] hepatology service, critical care and hospitalist. Patient was accepted and will be transferred. Did order ultrasound of the gallbladder. Patient was given N-acetylcysteine in case this was secondary to Tylenol. I do favor elevated INR is likely secondary to his Coumadin. He was given vitamin K. He was updated at bedside and will be transferred to [facility] once a bed is obtained. Patient was signed out to Dr. Salinas at 7:30 PM. Medication Reconcilliation Current Medication List: was personally reviewed by me Blood Pressure Screening Patient's blood pressure: Normal blood pressure Consults Time Called: 1608 Consulting Physician: Dr. Raul DENNEY Returned Call: 1611 I discussed the patient with Dr. Raul DENNEY. Additional Consults: Time Called: 1640 Consulted Physician: Dr. Raul DENNEY Returned Call: 1646 Additional Comments: I discussed the patient with Dr. Raul DENNEY - he says to transfer the patient. Time Called: 1720 Consulted Physician: Dr. Kwesi DENNEY Returned Call: 1728 Additional Comments: I discussed the patient with Dr. Kwesi DENNEY. Impression Primary Impression: Liver failure Additional Impressions: Transaminitis Elevated INR Lethargy Critical Care I have personally spent 35 minutes of critical care time in the direct management of this patient. This includes bedside care, interpretation of diagnostic studies, and testing, discussion with consultants, patient, and family members, and other required patient management activities. This 35 minutes is in excess of all separately billable procedures. Scribe Attestation The scribe's documentation has been prepared under my direction and personally reviewed by me in its entirety. I confirm that the note above accurately reflects all work, treatment, procedures, and medical decision making performed by me. Departure Information Dispostion Transfer Acute Care Facility (to [facility]) Referrals Hilda Marie M.D. (PCP) Problem Qualifiers Primary Impression: Liver failure Liver failure chronicity: acute Hepatic coma status: without hepatic coma Qualified Codes: K72.00 - Acute and subacute hepatic failure without coma
[2017-10-01] MEDS ORDERED: DEXTROSE 5% IV ONE (18:40)
[2017-10-01] MEDS ORDERED: ACETYLCYSTEINE IV ONE (18:40)
[2017-10-01] MEDS ORDERED: SODIUM CHLORIDE 0.9% 1000ML 2,000 ML IV STA (19:26)
--- NOTE | 2017-10-01 19:46 | DIAGNOSTIC IMAGING REPORT ---
ABDOMINAL ULTRASOUND, RIGHT UPPER QUADRANT HISTORY: elevated lfts no pain but ams . COMPARISON: Abdomen and pelvis CT 10/01/2017. FINDINGS: Pancreas: Obscured by overlying bowel gas. Liver: Mildly enlarged measuring 19 cm in length. No hepatic masses. Gallbladder: Abnormal gallbladder wall thickening and edema measuring up to 9 mm. This predominantly along the hepatic surface. No gallstones identified. Small amount of gallbladder sludge is present. CBD: 5 mm. Right kidney: No hydronephrosis. IMPRESSION: Abnormal gallbladder wall thickening and edema measure up to 9 mm. This is predominantly along the hepatic surface. There is also a small amount of gallbladder sludge. The appearance favors secondary change from underlying hepatic abnormality such as a hepatitis. However, acalculus cholecystitis or pancreatitis could also have a similar appearance. Clinical correlation recommended. Electronically signed by: Ananda Zazueta M.D. 10/01/2017 7:44 PM Dictated Date/Time: 10/01/2017 7:41 PM
[2017-10-01 20:47] VITALS: BP 129/88; PULSE 86; O2SAT 97
== END 2017-10-01 21:25 | disposition short-term general hospital (02) ==
LOC: EDBD 13:52 → C.EDC 13:53
DX: K72.00 Acute and subacute hepatic failure without coma (principal); M54.2 Cervicalgia; W19.XXXA Unspecified fall, initial encounter; R74.0 Nonspecific elevation of levels of transaminase and lactic acid dehydrogenase [LDH]; R79.1 Abnormal coagulation profile; R53.83 Other fatigue; I48.91 Unspecified atrial fibrillation; I25.10 Atherosclerotic heart disease of native coronary artery without angina pectoris; I11.0 Hypertensive heart disease with heart failure; E78.2 Mixed hyperlipidemia; I25.2 Old myocardial infarction; E66.2 Morbid (severe) obesity with alveolar hypoventilation; Z87.01 Personal history of pneumonia (recurrent); I50.42 Chronic combined systolic (congestive) and diastolic (congestive) heart failure; Z87.891 Personal history of nicotine dependence; Z79.82 Long term (current) use of aspirin; Z79.01 Long term (current) use of anticoagulants; Z79.899 Other long term (current) drug therapy; Z88.8 Allergy status to other drugs, medicaments and biological substances; Z88.6 Allergy status to analgesic agent; Z91.041 Radiographic dye allergy status

== ENCOUNTER → 2017-11-04 | Outpatient (CLI) | payer OTHER ==
[~2017-11-04] MED LIST changes: +CARV6.25 PO; -CARV6.252 PO; +FERR1TAB13 PO; -FRRS300 PO; -GFNSR600 PO; +GUAI1TAB55 PO; -LVQ750 PO; -NORT25CA PO; +NORT50CA PO; -OXYC-106 PO; +OXYC-594 PO; -PRD20 PO; +SPIR25TA PO; +SPIR25TA5 PO; -SPR25 PO
[2017-11-04 12:33] LABS: BLOOD UREA NITROGEN 12 mg/dl (7-18); CARBON DIOXIDE 32 mmol/L (21-32); GLUCOSE 108 mg/dl (70-99); POTASSIUM 3.7 mmol/L (3.5-5.1); SODIUM 135 mmol/L (136-145)
[2017-11-04 12:42] LABS: INR 3.8 (0.9-1.1)
--- NOTE | 2017-12-12 12:31 | CODING QUERY NO DIAGNOSIS ---
Valid Physician Order Needed A valid physician order must be submitted in order to properly bill for the service(s) provided, including date of service(s), valid diagnosis, and physician signature. If these tests are done on a recurring basis the original physician order must be submitted in order to code and bill for the service(s) provided. Please fax us the original, signed physician order so that we may expedite billing to [phone] DOS 11/04/2017 * BMP * PROTHROMBIN TIME Thank you [facility] Information Management
== END | disposition home or self-care (01) ==
LOC: C.LABSPEC 10:48
PROVIDERS: ATTEND Internal Medicine
DX: I25.10 Atherosclerotic heart disease of native coronary artery without angina pectoris (principal); I11.0 Hypertensive heart disease with heart failure; I50.23 Acute on chronic systolic (congestive) heart failure; I25.2 Old myocardial infarction

== ENCOUNTER → 2017-11-11 | Outpatient (CLI) | payer OTHER ==
[2017-11-11 12:41] LABS: BLOOD UREA NITROGEN 12 mg/dl (7-18); CALCIUM 9.2 mg/dl (8.5-10.1); CARBON DIOXIDE 31 mmol/L (21-32); CREATININE 1.46 mg/dl (0.60-1.40); GLUCOSE 115 mg/dl (70-99); POTASSIUM 3.6 mmol/L (3.5-5.1); SODIUM 132 mmol/L (136-145)
[2017-11-11 13:19] LABS: INR 7.7 (0.9-1.1)
== END | disposition home or self-care (01) ==
LOC: C.LABSPEC 10:38
PROVIDERS: ATTEND Internal Medicine
DX: I48.0 Paroxysmal atrial fibrillation (principal); I50.32 Chronic diastolic (congestive) heart failure; I21.4 Non-ST elevation (NSTEMI) myocardial infarction; Z79.01 Long term (current) use of anticoagulants; Z79.02 Long term (current) use of antithrombotics/antiplatelets; Z79.82 Long term (current) use of aspirin

== ENCOUNTER → 2017-11-13 | Outpatient (CLI) | payer OTHER ==
[2017-11-13 17:43] LABS: INR 4.7 (0.9-1.1)
== END | disposition home or self-care (01) ==
LOC: C.LABSPEC 10:20
PROVIDERS: ATTEND Internal Medicine
DX: I48.0 Paroxysmal atrial fibrillation (principal); I50.32 Chronic diastolic (congestive) heart failure; I21.4 Non-ST elevation (NSTEMI) myocardial infarction; Z79.01 Long term (current) use of anticoagulants; Z79.02 Long term (current) use of antithrombotics/antiplatelets; Z79.82 Long term (current) use of aspirin

== ENCOUNTER → 2017-12-02 | Outpatient (CLI) | payer OTHER | END | disposition home or self-care (01) | LOC: C.LABSPEC 15:10 | PROVIDERS: ATTEND Internal Medicine | DX: I48.0 Paroxysmal atrial fibrillation (principal); Z79.01 Long term (current) use of anticoagulants; Z79.02 Long term (current) use of antithrombotics/antiplatelets; Z79.82 Long term (current) use of aspirin ==

== ENCOUNTER → 2017-12-16 | Outpatient (CLI) | payer OTHER ==
--- NOTE | 2018-01-02 08:12 | CODING QUERY NO DIAGNOSIS ---
Valid Physician Order Needed A valid physician order must be submitted in order to properly bill for the service(s) provided, including date of service(s), valid diagnosis, and physician signature. If these tests are done on a recurring basis the original physician order must be submitted in order to code and bill for the service(s) provided. Please fax us the original, signed physician order so that we may expedite billing to [phone] DOS 12/16/17 (Original order with physician's signature needed) * Prothrombin Time Thank you Cici Gregorio [facility] Information Management
== END | disposition home or self-care (01) ==
LOC: C.LABSPEC 13:33
PROVIDERS: ATTEND Internal Medicine
DX: Z01.89 Encounter for other specified special examinations (principal)

== ENCOUNTER → 2017-12-23 | Outpatient (CLI) | payer OTHER ==
--- NOTE | 2017-12-31 10:22 | CODING QUERY MEDICAL NECESSITY ---
Valid Physician Order Needed A valid physician order must be submitted in order to properly bill for the service(s) provided, including date of service(s), valid diagnosis, and physician signature. If these tests are done on a recurring basis the original physician order must be submitted in order to code and bill for the service(s) provided. Please fax us the original, signed physician order so that we may expedite billing to [phone] DOS 12/23/2017 * PROTHROMBIN TIME Thank you [facility] Information Management
== END | disposition home or self-care (01) ==
LOC: C.LABBFT 09:20
PROVIDERS: ATTEND Internal Medicine
DX: Z79.01 Long term (current) use of anticoagulants (principal); Z79.02 Long term (current) use of antithrombotics/antiplatelets; Z79.82 Long term (current) use of aspirin

== ENCOUNTER → 2017-12-30 | Outpatient (CLI) | payer OTHER ==
[2017-12-30 11:48] LABS: BASO % 0.6 %; BASO ABS # 0.03 K/uL (0-0.2); EOS % 1.8 %; HEMATOCRIT 37.7 % (42-52); HEMOGLOBIN 12.2 g/dL (14.0-18.0); IG# 0.03 K/uL (0.00-0.02); LYMPH % 27.2 %; LYMPH ABS # 1.48 K/uL (1.2-3.4); MEAN CELL VOLUME 92.2 fL (80-100); MEAN CORPUSCULAR HEMOGLOBIN 29.8 pg (25-34); MEAN CORPUSCULAR HGB CONC 32.4 g/dl (32-36); MEAN PLATELET VOLUME 10.5 fL (7.4-10.4); MONO % 12.7 %; MONO ABS # 0.69 K/uL (0.11-0.59); NEUT % 57.1 %; NEUT ABS # 3.11 K/uL (1.4-6.5); PLATELET COUNT 189 K/uL (130-400); RED CELL DISTRIBUTION WIDTH CV 22.4 % (11.5-14.5); RED CELL DISTRIBUTION WIDTH SD 75.2 fL (36.4-46.3); WHITE BLOOD COUNT 5.44 K/uL (4.8-10.8)
[2017-12-30 12:00] LABS: INR 2.7 (0.9-1.1)
== END | disposition home or self-care (01) ==
LOC: C.LABSPEC 11:38
PROVIDERS: ATTEND Internal Medicine
DX: I48.91 Unspecified atrial fibrillation (principal); Z79.01 Long term (current) use of anticoagulants; I25.2 Old myocardial infarction

== ENCOUNTER 2018-05-26 16:01 | Inpatient (IN) ==
[2018-05-26] MEDS ORDERED: ALBUTEROL HFA 8 GM INHALER INH PRN (16:39)
[2018-05-26] MEDS ORDERED: CYCLOBENZAPRINE HCL 10 MG TAB PO PRN (16:39)
[2018-05-26] MEDS ORDERED: ACETAMINOPHEN 500 MG TAB PO PRN (16:39)
[2018-05-26] MEDS ORDERED: MoRPHine SULFATE 2 MG/ML CARP IV PRN (16:44)
[2018-05-26] MEDS ORDERED: ALUMINUM/MAGNESIUM SUSP 30 ML UDC PO PRN (16:44)
[2018-05-26] MEDS ORDERED: ONDANSETRON INJ 2 MG/ML 2 ML VIAL IV PRN (16:44)
[2018-05-26] MEDS ORDERED: OXYCODONE/ACETAMINOPHEN 10-325 TAB PO STA (16:49)
[2018-05-26] MEDS ORDERED: OXYCODONE/ACETAMINOPHEN 10-325 TAB ONE (17:04)
--- NOTE | 2018-05-26 17:25 | XRay Report ---
SINGLE VIEW CHEST CLINICAL HISTORY: Atypical chest pain. FINDINGS: An AP, portable, upright chest radiograph is compared to study dated 05/22/2018 and correlate d with chest CT dated 09/13/2017. The examination is degraded by portable technique and patient rotati on. A 3-lead cardiac AICD is unchanged in position and partially obscures the left upper chest. The h eart is enlarged and there is atherosclerotic calcification of the thoracic aorta. The pulmonary vasc ulature is noncongested. There is chronic elevation of the left hemidiaphragm with associated left ba silar opacities. No large pleural effusion or pneumothorax is seen. The skeletal structures are osteo penic. There are numerous healed right-sided rib fractures. IMPRESSION: 1. Cardiomegaly and AICD without radiographic evidence of congestive failure. 2. There is chronic elevation of the left hemidiaphragm with associated left basilar opacities. These have been present over multiple prior studies and likely resent scarring/atelectasis. Clinical corre lation will be required. Electronically signed by: Jacky Zhou M.D. 05/26/2018 5:24 PM
--- NOTE | 2018-05-26 17:27 | History & Physical Report ---
Date of Service May 26, 2018 Assessment & Plan (1) Weakness: Patient presented to cardiology office in a very weakened state. He is markedly orthostatic. He is had fevers over the last 4 days and marked rhinorrhea denies any ill contacts. He did have influenza one year ago. Patient presented to the ER approximately 4 days ago reportedly have had a fever he was markedly volume overloaded and his own opinion sitting his weight was up to 256 pounds after he was discharged from the ER he self diuresed using his home Bumex and spironolactone he is now at 237 pounds his dry weight being 235 Upon presentation we will do a chest x-ray influenza blood cultures have him on droplet precautions until influenza results negative (2) Ischemic cardiomyopathy: Patient has ischemic cardio myopathy with both chronic systolic and diastolic heart failure he typically is on carvedilol 3.125 twice daily he was instituted on amiodarone approximately 1 month ago at 200 twice daily and takes Bumex 2 mg in the morning and spironolactone 25 mg a day. Given his marked orthostatic as documented on presentation will reduce his carvedilol to once a day and his Bumex to 1 mg a day pending cardiology consultation He is maintained on aspirin and Plavix also with atorvastatin for secondary risk prevention (3) COPD (chronic obstructive pulmonary disease): Patient suffers from COPD has noted poor air movement patient will be maintained on his Advair and supplemental oxygen as needed (4) Paroxysmal A-fib: Patient's paroxysmal atrial fibrillation is controlled by beta-sravan and amiodarone. Because of his low blood pressures amiodarone will be continued but carvedilol be reduced he is maintained on Coumadin 2 alternating with 3 there is a pending INR on presentation (5) Depression: Patient anxiety will be maintained on Zoloft 100 mg at bedtime and Seroquel 200 at bedtime with BuSpar 15 3 times daily (6) Chronic low back pain: She is maintained on his oxycodone acetaminophen (7) DVT prophylaxis: Coumadin will be maintained with appropriate INR History of Present Illness Primary Care Provider: Hilda Marie She presented to Dr. Simmons's office for outpatient appointment very weak tired and dyspneic. The patient states he was in the emergency room 4 days ago he had a fever and had escalated his weight to 256 pounds. The emergency department I released him he went home and increase his Bumex and spironolactone and went from 256 pounds to 237 pounds. The patient states that he has been feverish and chilled all weekend that he has had runny nose although its improved by Dr. Simmons's office he was very dyspneic on exertion and orthostatic. Dr. Eugene called for direct admission. Valuate the patient he says he felt chilled all weekend he is not taken his temperature he has not been around any ill contacts it is noted he did have influenza last year. He is markedly orthostatic on presentation and it may well be that he just over diuresed himself in a too quick fashion. Current serology including a flu swab and chest x-rays are pending Allergies Allergy/AdvReac Type Severity Reaction Status Date / Time heparin Allergy Severe SEE COMMENT Verified 05/22/18 14:27 Iodinated Contrast- Oral and Allergy Severe swelling, Verified 05/22/18 14:27 IV Dye hives ibuprofen AdvReac Intermediate nausea Verified 05/22/18 14:27 vomiting Home Medications Home Medications Medication Instructions Recorded Confirmed Type aspirin 81 mg PO QAM 03/02/18 05/22/18 History atorvastatin 80 mg PO HS 03/02/18 05/22/18 History azelastine 1 spray INTRANASAL BID PRN 03/02/18 05/22/18 History buspirone 15 mg PO TID 03/02/18 05/22/18 History fluticasone-salmeterol 1 puff INHALATION Q12H 03/02/18 05/22/18 History albuterol sulfate [Ventolin HFA] 2 puff INHALATION Q6H PRN 03/03/18 05/22/18 History carvedilol 3.125 mg PO BID 03/03/18 05/22/18 History clopidogrel 75 mg PO QAM 03/03/18 05/22/18 History cyclobenzaprine 10 mg PO BID PRN 03/03/18 05/22/18 History docusate sodium [Colace] 100 mg PO BID 03/03/18 05/22/18 History ipratropium-albuterol 1 puff INHALATION QID 03/03/18 05/22/18 History loratadine [Claritin] 10 mg PO QAM 03/03/18 05/22/18 History melatonin 10 mg PO HS 03/03/18 05/22/18 History multivitamin [Daily Multiple] 1 tab PO QAM 03/03/18 05/22/18 History oxycodone-acetaminophen 1 tab PO Q4H PRN 03/03/18 05/22/18 History pantoprazole 40 mg PO QAM 03/03/18 05/22/18 History polyethylene glycol 3350 [Miralax] 17 g PO DAILY PRN 03/03/18 05/22/18 History quetiapine 200 mg PO HS 03/03/18 05/22/18 History ranitidine HCl 150 mg PO Q12H 03/03/18 05/22/18 History sertraline 100 mg PO QAM 03/03/18 05/22/18 History spironolactone 25 mg PO 1600 03/03/18 05/22/18 History warfarin [Coumadin] 2 mg PO Q2D 03/03/18 05/22/18 History diclofenac sodium [Voltaren] 4 gm TOP QID PRN 03/30/18 05/22/18 History warfarin 3 mg PO Q2D 03/30/18 05/22/18 History amiodarone 200 mg PO BID #60 tab 04/30/18 05/22/18 Rx magnesium oxide 400 mg PO QAM 30 Days #30 tab 04/30/18 05/22/18 Rx potassium chloride [Klor-Con M20] 20 meq PO QAM 30 Days #30 tab 04/30/18 Rx acetaminophen [Tylenol Extra 1,000 mg PO Q6H PRN 05/22/18 05/22/18 History Strength] bumetanide 2 mg PO QAM 05/22/18 05/22/18 History flaxseed oil-omega 3,6,9 1 cap PO 1200 05/22/18 05/22/18 History Past Med/Surg History Medical History Anxiety (Chronic) Diastolic CHF (Resolved) Hypotension (Resolved) NSTEMI (non-ST elevated myocardial infarction) (Resolved) Systolic CHF (Resolved) CHF (congestive heart failure) (Resolved) Anemia of chronic disease History of venous thromboembolism History of orthostatic hypotension PVD (peripheral vascular disease) Paroxysmal A-fib COPD (chronic obstructive pulmonary disease) Ischemic cardiomyopathy Weakness Acid reflux Aneurysm pt reports multiple aneurysms of LLE w/ stents Anxiety Atrial fibrillation COPD (chronic obstructive pulmonary disease) CVA (cerebral vascular accident) no residual effects Cardiac LV ejection fraction <20% Collar bone fracture Compression fracture Congestive heart failure DJD (degenerative joint disease) Hepatitis C History of left heart catheterization x10 per pt Hyperlipidemia Kidney disease DELICIA (obstructive sleep apnea) On Coumadin for atrial fibrillation Pacemaker Rib fractures Surgical History Status post popliteal-distal bypass surgery H/O rotator cuff surgery right S/P insertion of iliac artery stent Social History marital status: Single Current Living Situation: Boarding Home Feels Safe at Home: Yes Smoking Status: Former smoker Hx Alcohol Use: Yes (not current) Hx Substance Use: No Beliefs That Will Affect Care: None Preferred Language: Chinese Review of Systems ROS: well nourished well developed. He says he feels better now he is in the hospital as an outpatient he was very weak and tired and dyspneic No double vision blurry vision No problems with speech or swallowing Marked dyspneic on exertion No Wheezing rhonchi on oxygen with poor air movement No abdominal pain nausea vomiting diarrhea recent weight loss with diuresis at home No burning urine urine frequency urine darkening in color No new focal joint pain or muscle pain No skin rashes or oral lesions No unusual bruising or bleeding No new focused back pain but persistent chronic pain without loss of strength or numbness No changes in memory or confusion Physical Exam 2 Vital Signs (Past 24 Hours): Last Vital Signs Temp 36.7 C 05/26/18 16:35 Pulse 103 H 05/26/18 16:35 Resp 22 05/26/18 16:35 BP 99/57 L 05/26/18 17:02 Pulse Ox 92 05/26/18 16:35 The patient appeared well nourished and normally developed. He is markedly orthostatic but and sitting in bed seems to be in only minor distress Vital signs as documented. Orthostasis is noted Head exam is unremarkable. Oropharynx erythematous exudates minor rhinorrhea is noted Neck is with mild jugular venous distension, thyromegaly, or lymphademopathy Lungs are diminished bilaterally Cardiac exam reveals Rhythm is regular. First and second heart sounds normal. Systolic ejection murmur Abdominal exam reveals normal bowel sounds, no masses, no organomegaly Extremities are with mild edema and both pedal pulses are present Neurologic exam is A&Ox3, no focal deficits, strength is equal bilateral Skin is warm Dry without bruises or lesions
[2018-05-26] MEDS ORDERED: PATIENT'S HEIGHT AND/OR WEIGHT NEEDED SCH (17:30)
[2018-05-26 17:57] LABS: Basophils # (auto) 0.03 K/uL (0-0.2); Basophils % (auto) 0.5 %; Eosinophils % (auto) 1.6 %; Hematocrit (blood only) 43.8 % (42-52); Immature Granulocytes # (auto) 0.07 K/uL (0.00-0.02); Immature Granulocytes % (auto) 1.1 %; Lymphocytes # (auto) 1.66 K/uL (1.2-3.4); Lymphocytes % (auto) 27.1 %; Mean Corpuscular Volume 97.1 fL (80-100); Mean Platelet Volume 10.5 fL (7.4-10.4); Monocytes # (auto) 0.62 K/uL (0.11-0.59); Monocytes % (auto) 10.1 %; Neutrophils # (auto) 3.65 K/uL (1.4-6.5); Neutrophils % (auto) 59.6 %; Platelet Count 184 K/uL (130-400); RDW Standard Deviation 59.3 fL (36.4-46.3); Red Blood Count 4.51 M/uL (4.7-6.1); White Blood Count 6.13 K/uL (4.8-10.8)
[2018-05-26 17:59] LABS: Mean Corpuscular Hgb Conc 34.2 g/dL (32-36)
[2018-05-26 18:06] LABS: INR 2.6 (0.9-1.1); Prothrombin Time 24.8 Seconds (9.0-12.0)
--- NOTE | 2018-05-26 18:22 | Cardiology Consultation ---
Date of Consultation May 26, 2018 Assessment & Plan (1) CHF (congestive heart failure): He has a long history of decompensated systolic heart failure. There has been some difficulty over the past few months maintain a euvolemic. In April this year he presented with evidence of severe dehydration due to an intensification of his diuretic regimen. This also resulted in significant electrolyte derangements and ventricular fibrillation. Currently he appears to be relatively euvolemic. He has lost a significant amount of weight since his last evaluation in the outpatient setting. His lung examination is not consistent with pulmonary congestion nor is his chest x-ray. He did not have significant hypoxia despite tachypnea and breathing difficulty with ambulation. His renal function electrolytes appear normal. I would advocate continuation of his standard outpatient diuretic regimen which currently involves 2 milligrams of Bumex daily. He can be continued on his outpatient regimen of carvedilol and spironolactone. Generally speaking his blood pressures been too low to tolerate Fadi inhibition or ARB. Present on Admission?: Yes (2) Atrial fibrillation: Permanent. Overall rate control is generally good. Certainly worse during acute illness. He is appropriately anticoagulated with warfarin. Present on Admission?: Yes (3) Chest pain: He does describe an element of chest discomfort. Some of this is exertional. He is known to have significant coronary disease. His last evaluation was 1 year ago. At that time he was noted to have an occluded right coronary artery and diagonal. There was no intervention performed at that time. He had nonobstructive disease in the other distributions including a ramus branch with approximately 550-60 percent stenosis at its ostium. It is very possible that his chest discomfort is related to a primary pulmonary process he described worsening of the symptoms with coughing. We will need to maintain a high degree of suspicion for worsening ischemia. While generally we could discontinue his aspirin given the remote nature of his prior intervention , I think given his symptoms currently we can continue this during his inpatient hospitalization. Present on Admission?: Yes (4) Pre-syncope: He describes syncope at home, but it is unclear whether this represents true loss of consciousness or simply loss of postural tone due to weakness. There was no arrhythmia documented which would have caused syncope. He is not prone to bradycardic events given the backup pacing provided by his defibrillator. He was not hypoxic during symptoms of presyncope in the clinic today. I think this may be related to an element of overall weakness, possibly dehydration, poor oral intake recently and a viral illness. Present on Admission?: Yes (5) PVD (peripheral vascular disease): No current symptoms. History of remote peripheral bypass. (6) Ischemic cardiomyopathy: Severe. Last evaluation revealed an ejection fraction around 10 percent. In the past he has been advised to consider more advanced therapies at [facility] in [place]. Not on optimal medical therapy due to relative hypotension. Present on Admission?: Yes (7) Ventricular fibrillation: Previously due to severe electrolyte derangements in the setting of an ischemic cardiomyopathy. No recurrence. Normally functioning ICD. Present on Admission?: No History of Present Illness Reason for Consultation: Weakness, dyspnea Requesting Physician: Lore Attending Physician: Mario Torrez MD History of Present Illness The patient is a 57-year-old gentleman with a longstanding history of a severe ischemic cardiomyopathy who presented to the cardiology clinic today with symptoms of dyspnea and weakness. Patient was seen in [facility] Emergency room on the 22 of May with similar symptoms of shortness of breath and syncope. At that time he is also noted to be febrile and have a nonproductive cough. Patient was felt to have an element of intravascular depletion it was administered some fluid resuscitation. He also received a nebulizer treatment and was discharged with a prescription for prednisone over concerns of a COPD exacerbation. Serologic testing performed at that time did not reveal any evidence of influenza. The patient states that he returned home with persistent breathing trouble but doubled his usual dose of Bumex over 2 days and affected a significant diuresis. His breathing improved over that period of time. However, he continued to have an element of anorexia, progressive weakness and a cough productive of scant sputum. He did not report additional episodes of fever. He has had several episodes of presyncope and syncope. These were not precipitated by any sense of palpitation. The did not appear to be exclusively positional. In fact, most of these episode occurred while the patient was walking in becoming quite dyspneic. He also described an element of chest discomfort. This was described as an aching sensation. It appeared to be more prominent with activity and breathing difficulty but not exclusively exertional in nature. In the clinic today he had difficulty ambulating even 20 feet without becoming severely dyspneic and weak. He felt as though he would pass out on more than 1 occasion. Pulse oximetry performed in the clinic during these episodes did not reveal any evidence of hypoxia. There was no associated arrhythmia. Allergies Allergy/AdvReac Type Severity Reaction Status Date / Time heparin Allergy Severe SEE COMMENT Verified 05/22/18 14:27 Iodinated Contrast- Oral and Allergy Severe swelling, Verified 05/22/18 14:27 IV Dye hives ibuprofen AdvReac Intermediate nausea Verified 05/22/18 14:27 vomiting Home Medications Home Medications Medication Instructions Recorded Confirmed Type aspirin 81 mg PO QAM 03/02/18 05/22/18 History atorvastatin 80 mg PO HS 03/02/18 05/22/18 History azelastine 1 spray INTRANASAL BID PRN 03/02/18 05/22/18 History buspirone 15 mg PO TID 03/02/18 05/22/18 History fluticasone-salmeterol 1 puff INHALATION Q12H 03/02/18 05/22/18 History albuterol sulfate [Ventolin HFA] 2 puff INHALATION Q6H PRN 03/03/18 05/22/18 History carvedilol 3.125 mg PO BID 03/03/18 05/22/18 History clopidogrel 75 mg PO QAM 03/03/18 05/22/18 History cyclobenzaprine 10 mg PO BID PRN 03/03/18 05/22/18 History docusate sodium [Colace] 100 mg PO BID 03/03/18 05/22/18 History ipratropium-albuterol 1 puff INHALATION QID 03/03/18 05/22/18 History loratadine [Claritin] 10 mg PO QAM 03/03/18 05/22/18 History melatonin 10 mg PO HS 03/03/18 05/22/18 History multivitamin [Daily Multiple] 1 tab PO QAM 03/03/18 05/22/18 History oxycodone-acetaminophen 1 tab PO Q4H PRN 03/03/18 05/22/18 History pantoprazole 40 mg PO QAM 03/03/18 05/22/18 History polyethylene glycol 3350 [Miralax] 17 g PO DAILY PRN 03/03/18 05/22/18 History quetiapine 200 mg PO HS 03/03/18 05/22/18 History ranitidine HCl 150 mg PO Q12H 03/03/18 05/22/18 History sertraline 100 mg PO QAM 03/03/18 05/22/18 History spironolactone 25 mg PO 1600 03/03/18 05/22/18 History warfarin [Coumadin] 2 mg PO Q2D 03/03/18 05/22/18 History diclofenac sodium [Voltaren] 4 gm TOP QID PRN 03/30/18 05/22/18 History warfarin 3 mg PO Q2D 03/30/18 05/22/18 History amiodarone 200 mg PO BID #60 tab 04/30/18 05/22/18 Rx magnesium oxide 400 mg PO QAM 30 Days #30 tab 04/30/18 05/22/18 Rx potassium chloride [Klor-Con M20] 20 meq PO QAM 30 Days #30 tab 04/30/18 Rx acetaminophen [Tylenol Extra 1,000 mg PO Q6H PRN 05/22/18 05/22/18 History Strength] bumetanide 2 mg PO QAM 05/22/18 05/22/18 History flaxseed oil-omega 3,6,9 1 cap PO 1200 05/22/18 05/22/18 History Patient History Medical History Anxiety (Chronic) Diastolic CHF (Resolved) Hypotension (Resolved) NSTEMI (non-ST elevated myocardial infarction) (Resolved) Systolic CHF (Resolved) CHF (congestive heart failure) (Resolved) Anemia of chronic disease History of venous thromboembolism History of orthostatic hypotension PVD (peripheral vascular disease) Paroxysmal A-fib COPD (chronic obstructive pulmonary disease) Ischemic cardiomyopathy Weakness Acid reflux Aneurysm pt reports multiple aneurysms of LLE w/ stents Anxiety Atrial fibrillation COPD (chronic obstructive pulmonary disease) CVA (cerebral vascular accident) no residual effects Cardiac LV ejection fraction <20% Collar bone fracture Compression fracture Congestive heart failure DJD (degenerative joint disease) Hepatitis C History of left heart catheterization x10 per pt Hyperlipidemia Kidney disease DELICIA (obstructive sleep apnea) On Coumadin for atrial fibrillation Pacemaker Rib fractures Surgical History Status post popliteal-distal bypass surgery H/O rotator cuff surgery right S/P insertion of iliac artery stent Family History Other No significant family history Social History marital status: Single Current Living Situation: Alone Other Information That Helps Us Care for You: No Feels Safe at Home: Yes Safety Concerns: Feels Safe At This Time Smoking Status: Former smoker Hx Alcohol Use: Yes (not current) Alcohol Intake Frequency: a few times a week Hx Substance Use: No Beliefs That Will Affect Care: None Preferred Language: Hebrew Communication Ability: Effective Review of Systems Complete. Pertinent positives known history of present illness. Physical Exam 2 Vital Signs (Past 24 Hours): Last Vital Signs Temp 36.7 C 05/26/18 16:35 Pulse 103 H 05/26/18 16:35 Resp 22 05/26/18 16:35 BP 99/57 L 05/26/18 17:02 Pulse Ox 92 05/26/18 16:35 Physical Exam: The patient is alert and oriented. Mood and affect appeared normal. He answered all questions appropriately. HEENT: Pupils are equal and reactive to light and accommodation. Extraocular movements are intact. The sclerae are anicteric. Neuro: Cranial nerves intact Neck: Patient's neck is supple. He has palpable carotid pulses bilaterally without bruits on auscultation. There is no evidence of jugular venous distention. The thyroid is not enlarged. Lungs: Distant breath sounds with poor overall excursion. Normal respiratory effort. No rales wheezes or rhonchi Cardiac: Heart demonstrates a regular rate and rhythm. Normal S1 and S2. No murmurs on examination. Pulses: The patient has palpable radial pulses bilaterally that are equal in intensity but quite weak overall. Extremities: There was no evidence of hypoperfusion. There is no cyanosis or clubbing. Mild lower extremity edema. Skin: I did not appreciate any rashes on examination today. Results & Data Laboratory Results Abnormal Lab Results 05/26/18 05/26/18 05/26/18 16:16 17:29 17:29 WBC 6.13 RBC 4.51 L Hgb 15.0 Hct 43.8 MCV 97.1 MCH 33.3 MCHC 34.2 RDW Std Deviation 59.3 H RDW Coeff of Julian 17.0 H Plt Count 184 MPV 10.5 H Immature Gran % (Auto) 1.1 Neut % (Auto) 59.6 Lymph % (Auto) 27.1 Wharton % (Auto) 10.1 Eos % (Auto) 1.6 Baso % (Auto) 0.5 Immature Gran # (Auto) 0.07 H Neut # (Auto) 3.65 Lymph # (Auto) 1.66 Wharton # (Auto) 0.62 H Eos # (Auto) 0.10 Baso # (Auto) 0.03 PT 24.8 H INR 2.6 H Influenza Type A Ag Neg for Influ A Influenza Type B Ag Neg for Influ B Diagnostic Findings Chest x-ray obtained at the time of admission did not reveal any evidence of pulmonary vascular congestion or effusions. I performed a complete device interrogation today of his [employer] ICD. No arrhythmias since his prior admission on April 27. No recurrent episodes of ventricular fibrillation. No therapies. No significant pacing.
[2018-05-26 18:31] LABS: Alanine Aminotransferase 25 U/L (12-78); Albumin Level 4.3 gm/dl (3.4-5.0); Aspartate Aminotransferase 20 U/L (15-37); BUN Creatinine Ratio 10.5 (10-20); Blood Urea Nitrogen 15 mg/dl (7-18); Carbon Dioxide 26 mmol/L (21-32); Chloride 104 mmol/L (98-107); Creatinine Clr Calc Pharmacy 70.7 ml/min; Est GFR (African American) 59.7; Est GFR (Non-African American) 51.5; Glucose 100 mg/dl (70-99); Potassium 3.9 mmol/L (3.5-5.1); Sodium 138 mmol/L (136-145)
[2018-05-26 18:36] LABS: Alkaline Phosphatase 66 U/L (45-117); Bilirubin,Total 0.6 mg/dl (0.2-1); Globulin 4.2 gm/dl (2.5-4.0); NT Pro B Type Natriuretic Pept 4695 pg/ml (0-900); Total Protein 8.5 gm/dl (6.4-8.2); Troponin I < 0.015 ng/ml (0-0.045)
[2018-05-26] MEDS: IPRATROPIUM BROMIDE/ALBUTEROL respimat INH INH SCH ×2 (18:43→21:03)
[2018-05-26] MEDS: FLUTICASONE/SALMETEROL 250/50 (ADVAIR) 14 PUFF/1 INHALER INH SCH ×2 (18:45→23:31)
[2018-05-26] MEDS: WARFARIN SOD 2 MG TAB PO SCH (19:25)
[2018-05-26] MEDS ORDERED: CARVEDILOL 3.125 MG TAB PO SCH (21:00)
[2018-05-26] MEDS: AMIODARONE 200 MG TAB PO SCH (21:03)
[2018-05-26] MEDS: DOCUSATE SODIUM 100 MG CAP PO SCH (21:04)
[2018-05-26] MEDS: ATORVASTATIN 40 MG TAB PO SCH (21:04)
[2018-05-26] MEDS: OXYCODONE/ACETAMINOPHEN 10-325 TAB PO PRN (21:04)
[2018-05-26] MEDS: BusPIRone 15 MG TAB PO SCH (21:04)
[2018-05-26] MEDS: QUETIAPINE FUMARATE 100 MG TABLET PO SCH (21:33)
[2018-05-26] MEDS: MoRPHine SULFATE 2 MG/ML CARP IV PRN (22:11)
[2018-05-26] MEDS: AZELASTINE: ORDER AWAITING ACTION SCH (23:31)
[2018-05-27] MEDS: OXYCODONE/ACETAMINOPHEN 10-325 TAB PO PRN ×4 (06:19→20:36)
[2018-05-27 06:34] LABS: Hematocrit (blood only) 39.9 % (42-52); Hemoglobin 13.4 g/dL (14.0-18.0); Mean Corpuscular Hgb Conc 33.6 g/dL (32-36); Mean Corpuscular Volume 97.1 fL (80-100); Mean Platelet Volume 10.3 fL (7.4-10.4); Platelet Count 159 K/uL (130-400); RDW Coefficient of Variation 17.1 % (11.5-14.5); RDW Standard Deviation 60.8 fL (36.4-46.3); Red Blood Count 4.11 M/uL (4.7-6.1); White Blood Count 5.31 K/uL (4.8-10.8)
[2018-05-27 07:03] LABS: BUN Creatinine Ratio 13.2 (10-20); Calcium 8.7 mg/dl (8.5-10.1); Creatinine Clr Calc Pharmacy 76.8 ml/min; Est GFR (African American) 66.1; Est GFR (Non-African American) 57.1; Potassium 4.3 mmol/L (3.5-5.1)
[2018-05-27] MEDS: AMIODARONE 200 MG TAB PO SCH ×2 (08:35→20:40)
[2018-05-27] MEDS: IPRATROPIUM BROMIDE/ALBUTEROL respimat INH INH SCH ×4 (08:35→20:42)
[2018-05-27] MEDS: DOCUSATE SODIUM 100 MG CAP PO SCH ×2 (08:35→20:41)
[2018-05-27] MEDS: POTASSIUM CHLORIDE 20 MEQ TABCR PO SCH (08:36)
[2018-05-27] MEDS: SERTRALINE HCL 100 MG TABLET PO SCH (08:36)
[2018-05-27] MEDS: CARVEDILOL 3.125 MG TAB PO SCH (08:36)
[2018-05-27] MEDS: ASPIRIN 81 MG ECTAB PO SCH (08:37)
[2018-05-27] MEDS: CLOPIDOGREL BISULFATE 75 MG TAB PO SCH (08:37)
[2018-05-27] MEDS: MAGNESIUM OXIDE 400 MG TAB PO SCH (08:37)
[2018-05-27] MEDS: LORATADINE 10 MG TAB PO SCH (08:37)
[2018-05-27] MEDS: PANTOprazole 40 MG TAB PO SCH (08:38)
[2018-05-27] MEDS: BUMETANIDE 1 MG TAB PO SCH (08:38)
[2018-05-27] MEDS: BusPIRone 15 MG TAB PO SCH ×3 (08:38→20:39)
[2018-05-27] MEDS: FLUTICASONE/SALMETEROL 250/50 (ADVAIR) 14 PUFF/1 INHALER INH SCH ×2 (08:39→20:37)
[2018-05-27] MEDS: AZELASTINE: ORDER AWAITING ACTION SCH ×2 (08:40→16:29)
[2018-05-27] MEDS: POLYETHYLENE (MIRALAX) 17 GM PACK PO PRN (08:46)
[2018-05-27] MEDS ORDERED: BUMETANIDE 1 MG TAB PO SCH (09:00)
--- NOTE | 2018-05-27 11:31 | Family Medicine Progress Note ---
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 Pt was having rhinorrhea, cough, fever/chills since 05/21/18. No known sick contacts. ED visit on 05/22/18: had fever and was hypervolemic. Pt diuresed himself with home bumex and spironolactone with improvement in weight to 237lb from 256lb (baseline around 230lb). (1) Weakness: -Acute likely in the setting of acute viral URI vs. bronchitis : pt having rhinorrhea, productive cough x 7 days a/w chills/feeling feverish, nausea -influenza neg -CXR: no acute changes -Started on azithromycin day 05/23 -BCx: pending (2) Ischemic cardiomyopathy: Patient has ischemic cardiomyopathy with both chronic systolic and diastolic heart failure. EF 10%. -EKG: unchanged: 77 NSR QTc 430 (old inferior/anterior infarct, L axis deviation and non-specific intraventricular conduction block) -Home regimen: carvedilol 3.125 BID, amiodarone 200mg BID and Bumex 2 mg QAM, spironolactone 25 mg daily -Given orthostatic: carvedilol changed to once a day and bumex dose decreased to 1mg QAM -Continue aspirin, plavix and atorvastatin -Started on Entresto 24-26mg BID -Cardiology consulted agreed with decreased dosage of bumex and carvedilol with close monitor of volume status (3) COPD (chronic obstructive pulmonary disease): On home Advair, combivent respimat QID and supplemental oxygen as needed Started on azithromycin day 05/23 (4) Paroxysmal A-fib: On carvedilol and amiodarone. Because of his low blood pressures amiodarone continued but carvedilol reduced Continue Coumadin 2 alternating with 3 - INR 2.6 therapeutic (5) Depression/Anxiety: On Zoloft 100 mg HS, Seroquel 200 HS, BuSpar 15mg TID (6) Chronic low back pain: On home oxycodone and acetaminophen (7) DVT prophylaxis: Coumadin will be maintained with appropriate INR FEN/GI: heart healthy; On protonix 40mg daily and ranitidine 150mg BID; monitor and replete electrolytes as needed - on home KCL 20meq QAM and Mag Ox 400 QAM Code: Full Dispo: pending clinical improvement (5) CHF (congestive heart failure): (6) COPD (chronic obstructive pulmonary disease): (7) Paroxysmal A-fib: Supervising Physician Co-Signing Physician Notes I personally examined the patient and verified all carranza points of history and exam, discussed case, and agree with decision making with Dr Avelar. Feeling a little better than when he came in, but still short of breath cough, relates febrile illness prior to admission. Vitals noted, in general he is awake and alert fatigue but no acute distress. HEENT normocephalic atraumatic mucous membranes are moist. Lungs show scattered rhonchi no accessory muscles good effort COPD exacerbation-since he is not wheezing we will hold off on steroids as that could potentially exacerbate his CHF. Initiate Zithromax continue pulmonary toilet and inhalers Acute on chronic systolic CHFis fairly severe cardiomyopathy, and I suspect that the physiologic stress from the COPD exacerbation is the precipitating factor of his current exacerbation. Continue diuresis, cautiously give trial to Entresto at very low starting dose and given his propensity towards hypotension. Follow closely, follow basic metabolic panel. Subjective This AM pt reports still feeling weak, having productive cough and rhinorrhea x 7 days now. He also had some chills last night and occasionally has nausea. However sob at rest has improved but he still has GROSSMAN. LE edema has improved significantly. Denies fever, chest pain, abdominal pain, vomiting, dysuria. Physical Exam 2 Vital Signs (Past 24 Hours): Last Vital Signs Temp 36.7 C 05/27/18 07:15 Pulse 80 05/27/18 07:15 Resp 18 05/27/18 07:15 BP 95/64 L 05/27/18 07:15 Pulse Ox 92 05/27/18 07:15 Physical Exam: General: In NAD CV: RRR, no m/r/g Pulm: Occasional rales and wheezing aprpeciated, equal breath sounds bilaterally Abdomen: +BS, NTTP in all quadrants, non-distended LE: no LE pitting edema, no calf tenderness to palpation Results & Data Laboratory Results Abnormal lab results 05/26/18 05/26/18 05/26/18 Range/Units 17:29 17:29 17:29 RBC 4.51 L (4.7-6.1) M/uL Hgb (14.0-18.0) g/dL Hct (42-52) % RDW Std Deviation 59.3 H (36.4-46.3) fL RDW Coeff of Julian 17.0 H (11.5-14.5) % MPV 10.5 H (7.4-10.4) fL Immature Gran # (Auto) 0.07 H (0.00-0.02) K/uL Clinton # (Auto) 0.62 H (0.11-0.59) K/uL PT 24.8 H (9.0-12.0) Seconds INR 2.6 H (0.9-1.1) Creatinine 1.47 H (0.6-1.4) mg/dl Glucose 100 H (70-99) mg/dl NT-Pro-B Natriuret Pep 4695 H (0-900) pg/ml Total Protein 8.5 H (6.4-8.2) gm/dl Globulin 4.2 H (2.5-4.0) gm/dl 05/27/18 Range/Units 06:06 RBC 4.11 L (4.7-6.1) M/uL Hgb 13.4 L (14.0-18.0) g/dL Hct 39.9 L (42-52) % RDW Std Deviation 60.8 H (36.4-46.3) fL RDW Coeff of Julian 17.1 H (11.5-14.5) % MPV (7.4-10.4) fL Immature Gran # (Auto) (0.00-0.02) K/uL Clinton # (Auto) (0.11-0.59) K/uL PT (9.0-12.0) Seconds INR (0.9-1.1) Creatinine (0.6-1.4) mg/dl Glucose (70-99) mg/dl NT-Pro-B Natriuret Pep (0-900) pg/ml Total Protein (6.4-8.2) gm/dl Globulin (2.5-4.0) gm/dl Diagnostic Findings [place] CHEST CLINICAL HISTORY: Atypical chest pain. FINDINGS: An AP, portable, upright chest radiograph is compared to study dated and correlated with chest CT dated 09/13/2017. The examination is degraded by portable technique and patient rotation. A 3-lead cardiac AICD is unchanged in position and partially obscures the left upper chest. The heart is enlarged and there is atherosclerotic calcification of the thoracic aorta. The pulmonary vasculature is noncongested. There is chronic elevation of the left hemidiaphragm with associated left basilar opacities. No large pleural effusion or pneumothorax is seen. The skeletal structures are osteopenic. There are numerous healed right-sided rib fractures. IMPRESSION: 1. Cardiomegaly and AICD without radiographic evidence of congestive failure. 2. There is chronic elevation of the left hemidiaphragm with associated left basilar opacities. These have been present over multiple prior studies and likely resent scarring/atelectasis. Clinical correlation will be required. Medications Administered Current Inpatient Medications Acetaminophen (Tylenol) 1,000 mg PO Q6H PRN PRN Reason: Pain Stop: 06/25/18 16:38 Last Admin: 05/26/18 18:42 Dose: 1,000 mg Al Hydrox/Mg Hydrox/Simethicone (Maalox) 15 ml PO Q4H PRN PRN Reason: Dyspepsia Stop: 06/25/18 16:43 Albuterol (Ventolin Hfa) 2 puffs INH Q6H PRN PRN Reason: Shortness Of Breath Stop: 06/25/18 16:38 Albuterol (Combivent Respimat) 1 puffs INH QID [facility] Stop: 06/25/18 16:59 Last Admin: 05/27/18 08:35 Dose: 1 puffs Amiodarone HCl (Cordarone) 200 mg PO BID [facility] Stop: 06/25/18 20:59 Last Admin: 05/27/18 08:35 Dose: 200 mg Aspirin (Ecotrin Ectab) 81 mg PO QAM [facility] Stop: 06/26/18 08:59 Last Admin: 05/27/18 08:37 Dose: 81 mg Atorvastatin Calcium (Lipitor) 80 mg PO HS [facility] Stop: 06/25/18 20:59 Last Admin: 05/26/18 21:04 Dose: 80 mg Bumetanide (Bumex) 1 mg PO QAM [facility] Stop: 06/26/18 08:59 Last Admin: 05/27/18 08:38 Dose: 1 mg Buspirone HCl (Buspar) 15 mg PO TID [facility] Stop: 06/25/18 20:59 Last Admin: 05/27/18 08:38 Dose: 15 mg Carvedilol (Coreg) 3.125 mg PO DAILY [facility] Stop: 06/26/18 08:59 Last Admin: 05/27/18 08:36 Dose: 3.125 mg Clopidogrel [facility] ([facility]avix) [facility] [place] Stop: 06/26/18 08:59 Last Admin: 05/27/18 08:37 Dose: 75 mg Cyclobenzaprine HCl (Flexeril) 10 mg PO BID PRN PRN Reason: Muscle Spasm Stop: 06/25/18 16:38 Docusate Sodium (Colace) 100 mg PO BID [facility] Stop: 06/25/18 20:59 Last Admin: 05/27/18 08:35 Dose: 100 mg Loratadine (Claritin) 10 mg PO [facility] Stop: 06/26/18 08:59 Last Admin: 05/27/18 08:37 Dose: 10 mg Magnesium Oxide (Mag-Ox) 400 mg PO [facility] Stop: 06/26/18 08:59 Last Admin: 05/27/18 08:37 Dose: 400 mg Miscellaneous (Order Awaiting Action) 1 ea N/A QS [facility] Stop: 06/26/18 00:00 Last Admin: 05/27/18 08:40 Dose: Not Given Morphine Sulfate (Morphine Sulfate) 2 mg IV Q30M PRN PRN Reason: Chest Pain Stop: 06/09/18 16:43 Morphine Sulfate (Morphine Sulfate) 2 mg IV Q4H PRN PRN Reason: Pain Stop: 06/09/18 20:36 Last Admin: 05/26/18 22:11 Dose: 2 mg Ondansetron HCl (Zofran) 4 mg IV Q6H PRN PRN Reason: Nausea Stop: 06/25/18 16:43 Oxycodone/Acetaminophen (Percocet 10/325mg) 1 tab PO Q4H PRN PRN Reason: Pain Stop: 06/09/18 16:38 Last Admin: 05/27/18 10:24 Dose: 1 tab Pantoprazole Sodium (Protonix) 40 mg PO [facility] Stop: 06/26/18 08:59 Last Admin: 05/27/18 08:38 Dose: 40 mg Polyethylene Glycol (Miralax Powder Packet) 17 gm PO DAILY PRN PRN Reason: Constipation Stop: 06/25/18 16:38 Last Admin: 05/27/18 08:46 Dose: 17 gm Potassium Chloride (Klor-Con M20) 20 meq PO QAM [facility] Stop: 06/26/18 08:59 Last Admin: 05/27/18 08:36 Dose: 20 meq Quetiapine Fumarate (Seroquel) 200 mg PO HS [facility] Stop: 06/25/18 20:59 Last Admin: 05/26/18 21:33 Dose: 200 mg Ranitidine HCl (Zantac) 150 mg PO Q12 [facility] Stop: 06/25/18 17:14 Last Admin: 05/27/18 08:37 Dose: 150 mg Fluticasone/Salmeterol (Advair Diskus 250/50) 1 puffs INH Q12 [facility] Stop: 06/25/18 17:14 Last Admin: 05/27/18 08:39 Dose: 1 puffs Sertraline HCl (Zoloft) 100 mg PO QAM [facility] Stop: 06/26/18 08:59 Last Admin: 05/27/18 08:36 Dose: 100 mg Warfarin Sodium (Coumadin) 3 mg PO Q2D@1600 [facility] Stop: 06/26/18 15:59 Warfarin Sodium (Coumadin) 2 mg PO Q2D@1600 [facility] Stop: 06/25/18 16:44 Last Admin: 05/26/18 19:25 Dose: 2 mg Resident Activity Tracking Resident Involvement: Resident Care Provided Care Provided: Adult Hospital Medicine
--- NOTE | 2018-05-27 12:08 | Cardiology Progress Note ---
Date of Service May 27, 2018 Assessment & Plan (1) CHF (congestive heart failure): Subjectively he is short of breath, but he has mixed objective findings. His lung examination is relatively benign and chest x-ray did not demonstrate significant pulmonary congestion. Overall his weight is down. He does have a that markedly elevated N terminal proBNP. He was significantly orthostatic at the time of his evaluation which has been a problem for him in the past with over diuresis. He had his Bumex dose reduced this morning. I think would be reasonable simply monitor him with respect to symptoms and weight on this dose. He appears to be clinically improved. In the long when he prefers returned to torsemide. (2) Shortness of breath: Possibly multifocal. He is also at risk for pulmonary vascular congestion. However, his x-ray was relatively benign. His breathing seems to be little bit better today. Possibly a contribution from recent viral illness given his coughing and the known viral syndrome he described. (3) Ischemic cardiomyopathy: Patient is on very little medical therapy due to symptoms of hypotension. He continues to have hypotension a switch from carvedilol to metoprolol succinate could be considered. I would continue his spironolactone. (4) Ventricular fibrillation: No clinical recurrence. Likely due to electrolyte derangements. Continue on amiodarone. Check TSH. Subjective This morning the patient claims to be feeling better. He apparently had a good night sleep in his energy levels improved. He was able ambulate back in 4 to the bathroom and did have an element of dyspnea but no significant dizziness. His symptoms of chest discomfort appear to have resolved as well. He still has a cough productive of scant sputum. No chest pain with coughing. Physical Exam 2 Vital Signs (Past 24 Hours): Last Vital Signs Temp 36.6 C 05/27/18 11:32 Pulse 102 H 05/27/18 11:32 Resp 20 05/27/18 11:32 BP 134/86 05/27/18 11:32 Pulse Ox 92 05/27/18 11:32 Physical Exam: The patient is alert and oriented. Mood and affect appeared normal. He answered all questions appropriately. HEENT: Pupils are equal and reactive to light and accommodation. Extraocular movements are intact. The sclerae are anicteric. Neuro: Cranial nerves intact Neck: Patient's neck is supple. He has palpable carotid pulses bilaterally without bruits on auscultation. There is no evidence of jugular venous distention. The thyroid is not enlarged. Lungs: Clear to auscultation bilaterally but overall distant breath sounds. He has good air movement without use of accessory muscles. No rales wheezes or rhonchi. Cardiac: Heart demonstrates an irregular rate and rhythm. Normal S1 and S2. No murmurs on examination. Pulses: The patient has palpable radial pulses bilaterally that are equal in intensity although weak. Extremities: There was no evidence of hypoperfusion. There is no cyanosis or clubbing. Mild lower extremity edema. Skin: I did not appreciate any rashes on examination today. Results & Data Laboratory Results Abnormal Lab Results 05/26/18 05/26/18 05/26/18 16:16 17:29 17:29 WBC 6.13 RBC 4.51 L Hgb 15.0 Hct 43.8 MCV 97.1 MCH 33.3 MCHC 34.2 RDW Std Deviation 59.3 H RDW Coeff of Julian 17.0 H Plt Count 184 MPV 10.5 H Immature Gran % (Auto) 1.1 Neut % (Auto) 59.6 Lymph % (Auto) 27.1 Holt % (Auto) 10.1 Eos % (Auto) 1.6 Baso % (Auto) 0.5 Immature Gran # (Auto) 0.07 H Neut # (Auto) 3.65 Lymph # (Auto) 1.66 Holt # (Auto) 0.62 H Eos # (Auto) 0.10 Baso # (Auto) 0.03 PT 24.8 H INR 2.6 H Sodium Potassium Chloride Carbon Dioxide Anion Gap BUN Creatinine Est Cr Clr Drug Dosing Est GFR ( Amer) Est GFR (Non-Af Amer) BUN/Creatinine Ratio Glucose Calcium Total Bilirubin AST ALT Alkaline Phosphatase Troponin I NT-Pro-B Natriuret Pep Total Protein Albumin Globulin Albumin/Globulin Ratio Influenza Type A Ag Neg for Influ A Influenza Type B Ag Neg for Influ B 05/26/18 05/26/18 05/27/18 17:29 17:29 06:06 WBC 5.31 RBC 4.11 L Hgb 13.4 L Hct 39.9 L MCV 97.1 MCH 32.6 MCHC 33.6 RDW Std Deviation 60.8 H RDW Coeff of Julian 17.1 H Plt Count 159 MPV 10.3 Immature Gran % (Auto) Neut % (Auto) Lymph % (Auto) Holt % (Auto) Eos % (Auto) Baso % (Auto) Immature Gran # (Auto) Neut # (Auto) Lymph # (Auto) Holt # (Auto) Eos # (Auto) Baso # (Auto) PT INR Sodium 138 Potassium 3.9 Chloride 104 Carbon Dioxide 26 Anion Gap 8.0 BUN 15 Creatinine 1.47 H Est Cr Clr Drug Dosing 70.7 Est GFR ( Amer) 59.7 Est GFR (Non-Af Amer) 51.5 BUN/Creatinine Ratio 10.5 Glucose 100 H Calcium 9.0 Total Bilirubin 0.6 AST 20 ALT 25 Alkaline Phosphatase 66 Troponin I < 0.015 NT-Pro-B Natriuret Pep 4695 H Cancelled Total Protein 8.5 H Albumin 4.3 Globulin 4.2 H Albumin/Globulin Ratio 1.0 Influenza Type A Ag Influenza Type B Ag 05/27/18 06:06 WBC RBC Hgb Hct MCV MCH MCHC RDW Std Deviation RDW Coeff of Julian Plt Count MPV Immature Gran % (Auto) Neut % (Auto) Lymph % (Auto) Holt % (Auto) Eos % (Auto) Baso % (Auto) Immature Gran # (Auto) Neut # (Auto) Lymph # (Auto) Holt # (Auto) Eos # (Auto) Baso # (Auto) PT INR Sodium 137 Potassium 4.3 Chloride 106 Carbon Dioxide 25 Anion Gap 6.0 BUN 18 Creatinine 1.35 Est Cr Clr Drug Dosing 76.8 Est GFR ( Amer) 66.1 Est GFR (Non-Af Amer) 57.1 BUN/Creatinine Ratio 13.2 Glucose 97 Calcium 8.7 Total Bilirubin AST ALT Alkaline Phosphatase Troponin I NT-Pro-B Natriuret Pep Total Protein Albumin Globulin Albumin/Globulin Ratio Influenza Type A Ag Influenza Type B Ag ECG Additional Comments: Telemetry does not demonstrate any significant arrhythmia
[2018-05-27] MEDS: MoRPHine SULFATE 2 MG/ML CARP IV PRN ×2 (13:40→22:48)
[2018-05-27] MEDS ORDERED: AZITHROMYCIN 250 MG TAB PO ONE (15:45)
[2018-05-27] MEDS ORDERED: SPIRONOLACTONE 25 MG TAB PO SCH (16:00)
[2018-05-27] MEDS ORDERED: WARFARIN SOD 3 MG TAB PO SCH (16:00)
[2018-05-27] MEDS: SACUBITRIL-VALSARTAN 24-26 MG TAB PO SCH (20:39)
[2018-05-27] MEDS: ATORVASTATIN 40 MG TAB PO SCH (20:40)
[2018-05-27] MEDS: QUETIAPINE FUMARATE 100 MG TABLET PO SCH (22:09)
[2018-05-28] MEDS: AZELASTINE: ORDER AWAITING ACTION SCH ×3 (00:26→16:46)
[2018-05-28] MEDS: OXYCODONE/ACETAMINOPHEN 10-325 TAB PO PRN ×5 (00:29→20:39)
[2018-05-28] MEDS ORDERED: SODIUM CHLORIDE 0.9% 1000ML 250 ML IV ONE (03:57)
[2018-05-28] MEDS: MoRPHine SULFATE 2 MG/ML CARP IV PRN (04:37)
[2018-05-28 06:41] LABS: Hematocrit (blood only) 39.7 % (42-52); Hemoglobin 13.2 g/dL (14.0-18.0); Mean Corpuscular Hgb Conc 33.2 g/dL (32-36); Mean Corpuscular Volume 98.5 fL (80-100); Mean Platelet Volume 10.5 fL (7.4-10.4); Platelet Count 148 K/uL (130-400); RDW Coefficient of Variation 17.3 % (11.5-14.5); RDW Standard Deviation 61.4 fL (36.4-46.3); Red Blood Count 4.03 M/uL (4.7-6.1); White Blood Count 4.68 K/uL (4.8-10.8)
[2018-05-28 07:06] LABS: INR 2.7 (0.9-1.1)
[2018-05-28 07:20] LABS: BUN Creatinine Ratio 12.9 (10-20); Calcium 8.1 mg/dl (8.5-10.1); Creatinine Clr Calc Pharmacy 89.7 ml/min; Est GFR (African American) 79.4; Est GFR (Non-African American) 68.5; Potassium 4.4 mmol/L (3.5-5.1)
[2018-05-28] MEDS: FLUTICASONE/SALMETEROL 250/50 (ADVAIR) 14 PUFF/1 INHALER INH SCH ×2 (08:19→20:40)
[2018-05-28] MEDS: BUMETANIDE 1 MG TAB PO SCH (08:20)
[2018-05-28] MEDS: DOCUSATE SODIUM 100 MG CAP PO SCH ×2 (08:20→20:41)
[2018-05-28] MEDS: PANTOprazole 40 MG TAB PO SCH (08:20)
[2018-05-28] MEDS: CLOPIDOGREL BISULFATE 75 MG TAB PO SCH (08:20)
[2018-05-28] MEDS: LORATADINE 10 MG TAB PO SCH (08:20)
[2018-05-28] MEDS: BusPIRone 15 MG TAB PO SCH ×3 (08:21→20:46)
[2018-05-28] MEDS: POTASSIUM CHLORIDE 20 MEQ TABCR PO SCH (08:21)
[2018-05-28] MEDS: CARVEDILOL 3.125 MG TAB PO SCH ×2 (08:22→20:50)
[2018-05-28] MEDS: ASPIRIN 81 MG ECTAB PO SCH (08:22)
[2018-05-28] MEDS: SACUBITRIL-VALSARTAN 24-26 MG TAB PO SCH ×2 (08:22→20:45)
[2018-05-28] MEDS: AZITHROMYCIN 250 MG TAB PO SCH (08:23)
[2018-05-28] MEDS: MAGNESIUM OXIDE 400 MG TAB PO SCH (08:23)
[2018-05-28] MEDS: SERTRALINE HCL 100 MG TABLET PO SCH (08:23)
[2018-05-28] MEDS: IPRATROPIUM BROMIDE/ALBUTEROL respimat INH INH SCH ×4 (08:25→20:40)
[2018-05-28] MEDS: AMIODARONE 200 MG TAB PO SCH ×2 (08:25→20:44)
--- NOTE | 2018-05-28 14:19 | Cardiology Progress Note ---
Date of Service May 28, 2018 Assessment & Plan (1) CHF (congestive heart failure): He seems to doing quite well. He still remains orthostatic. He is responding well to a lower dose of diuretic likely due to initiation of Entresto. I think continuing him on his reduced dose of Bumex or even switching him to an equivalent dose of torsemide would be reasonable. (2) Shortness of breath: Improved (3) Ischemic cardiomyopathy: He had his carvedilol reduced and Entresto initiated. I would advocate placing him back on his outpatient dose of carvedilol. He will need to be monitored closely for signs of hypotension or renal dysfunction on Entresto. His current reduction in Bumex may also help attenuate any hypotensive effects of Entresto. (4) Ventricular fibrillation: No clinical recurrence. On some beta blockade, would advocate reinitiating twice daily dosing of carvedilol. Electrolytes normal. Subjective Overall he claims he feeling well. He is a little ambulation and is anxious to ambulate more. He has ambulate at back and forth to the bathroom without significant dizziness or weakness. He continues to have an element of dyspnea. He is complaining of some mild ankle discomfort. He describes this as a shooting pain in his lower leg. It does not appear to be joint pain. He still feels as if he has "fluid". Physical Exam 2 Vital Signs (Past 24 Hours): Last Vital Signs Temp 36.4 C L 05/28/18 07:10 Pulse 77 05/28/18 07:42 Resp 18 05/28/18 07:10 BP 108/77 05/28/18 07:10 Pulse Ox 91 05/28/18 07:10 Physical Exam: The patient is alert and oriented. Mood and affect appeared normal. He answered all questions appropriately. HEENT: Pupils are equal and reactive to light and accommodation. Extraocular movements are intact. The sclerae are anicteric. Neuro: Cranial nerves intact Neck: Patient's neck is supple. Lungs: Clear to auscultation bilaterally. No rales. Overall poor air movement with distant breath sounds. Cardiac: Heart demonstrates a regular rate and rhythm. Pulses: The patient has palpable radial pulses bilaterally that are equal in intensity Extremities: There was no evidence of hypoperfusion. There is no cyanosis or clubbing. There is no edema. Skin: I did not appreciate any rashes on examination today. Results & Data Laboratory Results Abnormal Lab Results 05/28/18 05/28/18 05/28/18 06:06 06:06 06:06 WBC 4.68 L RBC 4.03 L Hgb 13.2 L Hct 39.7 L MCV 98.5 MCH 32.8 MCHC 33.2 RDW Std Deviation 61.4 H RDW Coeff of Julian 17.3 H Plt Count 148 MPV 10.5 H PT 26.0 H INR 2.7 H Sodium 138 Potassium 4.4 Chloride 107 Carbon Dioxide 29 Anion Gap 2.0 L BUN 15 Creatinine 1.16 Est Cr Clr Drug Dosing 89.7 Est GFR ( Amer) 79.4 Est GFR (Non-Af Amer) 68.5 BUN/Creatinine Ratio 12.9 Glucose 93 Calcium 8.1 L TSH 4.000 ECG Additional Comments: Sinus rhythm. No arrhythmia.
[2018-05-28] MEDS: WARFARIN SOD 2 MG TAB PO SCH (16:45)
--- NOTE | 2018-05-28 17:32 | Family Medicine Progress Note ---
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 Pt was having rhinorrhea, cough, fever/chills since 05/21/18. No known sick contacts. ED visit on 05/22/18: had fever and was hypervolemic. Pt diuresed himself with home bumex and spironolactone with improvement in weight to 237lb from 256lb (baseline around 230lb). (1) Weakness: improving -Acute likely in the setting of acute viral URI vs. bronchitis : pt had rhinorrhea, productive cough x 7 days a/w chills/feeling feverish, nausea -influenza neg -CXR: no acute changes -Started on azithromycin day 2 -BCx: NGTD (2) Ischemic cardiomyopathy: Patient has ischemic cardiomyopathy with both chronic systolic and diastolic heart failure. EF 10%. -EKG: unchanged: 77 NSR QTc 430 (old inferior/anterior infarct, L axis deviation and non-specific intraventricular conduction block) -Home regimen: carvedilol 3.125 BID, amiodarone 200mg BID and Bumex 2 mg QAM, spironolactone 25 mg daily -Continue aspirin, plavix and atorvastatin -Started on Entresto 24-26mg BID -Cardiology consulted (3) COPD (chronic obstructive pulmonary disease): On home Advair, combivent respimat QID and supplemental oxygen as needed Started on azithromycin day 2 (4) Paroxysmal A-fib: On carvedilol and amiodarone Continue Coumadin 2 alternating with 3 - INR 2.7 therapeutic (5) Depression/Anxiety: On Zoloft 100 mg HS, Seroquel 200 HS, BuSpar 15mg TID (6) Chronic low back pain: On home oxycodone and acetaminophen (7) DVT prophylaxis: Coumadin will be maintained with appropriate INR FEN/GI: heart healthy; On protonix 40mg daily and ranitidine 150mg BID; monitor and replete electrolytes as needed - on home KCL 20meq QAM and Mag Ox 400 QAM Code: Full Dispo: pending clinical improvement (5) CHF (congestive heart failure): (6) COPD (chronic obstructive pulmonary disease): (7) Paroxysmal A-fib: Supervising Physician Co-Signing Physician Notes I personally examined the patient and verified all carranza points of history and exam, discussed case, and agree with decision making with Dr Avelar. He is a bit argumentative today. He notes that he feels like his skin is dried out from the Bumex, and this did not happen before with the torsemide or Lasix. He notes that he feels like he has to pee all the time but not much comes out. This is just started today. He denies pre-existing prostate symptoms prior to admission. He does note that he was up a good bit last night with leg pain and therefore had poor sleep, but he himself does not relate this to his urinary symptoms. His breathing is better. He did have positive orthostatic changes on vitals but did not feel it. Vitals noted, in general he is awake and alert fatigue but no acute distress. HEENT normocephalic atraumatic mucous membranes are moist. Lungs unlabored no use of accessory muscles good effort. Neuro shows no focal deficits. COPD exacerbation-continue Zithromax and inhalers. Septated is acute CHF, given his underlying cardiomyopathy. Acute on chronic systolic CHFis fairly severe cardiomyopathy, and I suspect that the physiologic stress from the COPD exacerbation is the precipitating factor of his current exacerbation. Appreciate cardiology assistance with diuretics, continue trial of Entresto, continue other meds at current dosing. He does have positive orthostatics, but no symptoms, will have him walk under supervision and follow him closely. Obviously he will need close follow-up of his basic metabolic panel even as an outpatient. Subjective This AM pt reports feeling better, still having productive cough and sob but improved. Improved f/c. Had some nausea, and L leg pain ON but improved this AM. Denies fever/chills, chest pain, abdominal pain, vomiting, dysuria. Physical Exam 2 Vital Signs (Past 24 Hours): Last Vital Signs Temp 36.4 C L 05/28/18 07:10 Pulse 77 05/28/18 07:42 Resp 18 05/28/18 07:10 BP 108/77 05/28/18 07:10 Pulse Ox 91 05/28/18 07:10 Physical Exam: General: In NAD CV: RRR, no m/r/g Pulm: occasional wheezing appeciated, equal breath sounds bilaterally Abdomen: +BS, NTTP in all quadrants, non-distended LE: no LE pitting edema, no calf tenderness to palpation Results & Data Laboratory Results Abnormal lab results 05/28/18 05/28/18 05/28/18 Range/Units 06:06 06:06 06:06 WBC 4.68 L (4.8-10.8) K/uL RBC 4.03 L (4.7-6.1) M/uL Hgb 13.2 L (14.0-18.0) g/dL Hct 39.7 L (42-52) % RDW Std Deviation 61.4 H (36.4-46.3) fL RDW Coeff of Julian 17.3 H (11.5-14.5) % MPV 10.5 H (7.4-10.4) fL PT 26.0 H (9.0-12.0) Seconds INR 2.7 H (0.9-1.1) Anion Gap 2.0 L (3-11) Calcium 8.1 L (8.5-10.1) mg/dl Medications Administered Current Inpatient Medications Acetaminophen (Tylenol) 1,000 mg PO Q6H PRN PRN Reason: Pain Stop: 06/25/18 16:38 Last Admin: 05/26/18 18:42 Dose: 1,000 mg Al Hydrox/Mg Hydrox/Simethicone (Maalox) 15 ml PO Q4H PRN PRN Reason: Dyspepsia Stop: 06/25/18 16:43 Albuterol (Ventolin Hfa) 2 puffs INH Q6H PRN PRN Reason: Shortness Of Breath Stop: 06/25/18 16:38 Albuterol (Combivent Respimat) 1 puffs INH QID [facility] Stop: 06/25/18 16:59 Last Admin: 05/28/18 16:46 Dose: 1 puffs Amiodarone HCl (Cordarone) 200 mg PO BID [facility] Stop: 06/25/18 20:59 Last Admin: 05/28/18 08:25 Dose: 200 mg Aspirin (Ecotrin Ectab) 81 mg PO QAM [facility] Stop: 06/26/18 08:59 Last Admin: 05/28/18 08:22 Dose: 81 mg Atorvastatin Calcium (Lipitor) 80 mg PO HS [facility] Stop: 06/25/18 20:59 Last Admin: 05/27/18 20:40 Dose: 80 mg Azithromycin (Zithromax) 250 mg PO QAM [facility] Stop: 06/02/18 08:59 Last Admin: 05/28/18 08:23 Dose: 250 mg Bumetanide (Bumex) 1 mg PO QAM [facility] Stop: 06/26/18 08:59 Last Admin: 05/28/18 08:20 Dose: 1 mg Buspirone HCl (Buspar) 15 mg PO TID [facility] Stop: 06/25/18 20:59 Last Admin: 05/28/18 13:51 Dose: 15 mg Carvedilol (Coreg) 3.125 mg PO DAILY [facility] Stop: 06/26/18 08:59 Last Admin: 05/28/18 08:22 Dose: 3.125 mg Clopidogrel Bis[facility]ate (Plavix) [facility] [place] Stop: 06/26/18 08:59 Last Admin: 05/28/18 08:20 Dose: 75 mg Cyclobenzaprine HCl (Flexeril) 10 mg PO BID PRN PRN Reason: Muscle Spasm Stop: 06/25/18 16:38 Docusate Sodium (Colace) 100 mg PO BID [facility] Stop: 06/25/18 20:59 Last Admin: 05/28/18 08:20 Dose: 100 mg Loratadine (Claritin) 10 mg PO QAM [facility] Stop: 06/26/18 08:59 Last Admin: 05/28/18 08:20 Dose: 10 mg Magnesium Oxide (Mag-Ox) 400 mg PO [facility] Stop: 06/26/18 08:59 Last Admin: 05/28/18 08:23 Dose: 400 mg Miscellaneous (Order Awaiting Action) 1 ea N/A QS [facility] Stop: 06/26/18 00:00 Last Admin: 05/28/18 16:46 Dose: Not Given Morphine Sulfate (Morphine Sulfate) 2 mg IV Q30M PRN PRN Reason: Chest Pain Stop: 06/09/18 16:43 Ondansetron HCl (Zofran) 4 mg IV Q6H PRN PRN Reason: Nausea Stop: 06/25/18 16:43 Oxycodone/Acetaminophen (Percocet 10/325mg) 1 tab PO Q4H PRN PRN Reason: Pain Stop: 06/09/18 16:38 Last Admin: 05/28/18 16:35 Dose: 1 tab Pantoprazole Sodium (Protonix) 40 mg PO QAM [facility] Stop: 06/26/18 08:59 Last Admin: 05/28/18 08:20 Dose: 40 mg Polyethylene Glycol (Miralax Powder Packet) 17 gm PO DAILY PRN PRN Reason: Constipation Stop: 06/25/18 16:38 Last Admin: 05/27/18 08:46 Dose: 17 gm Potassium Chloride (Klor-Con M20) 20 meq [facility] [place] [place] Stop: 06/26/18 08:59 Last Admin: 05/28/18 08:21 Dose: 20 meq Quetiapine Fumarate (Seroquel) 200 mg PO HS [facility] Stop: 06/25/18 20:59 Last Admin: 05/27/18 22:09 Dose: 200 mg Ranitidine HCl (Zantac) 150 mg PO Q12 [facility] Stop: 06/25/18 17:14 Last Admin: 05/28/18 08:23 Dose: 150 mg Sacubitril/Valsartan (Entresto 24/26mg) 1 tab PO BID [facility] Stop: 06/26/18 20:59 Last Admin: 05/28/18 08:22 Dose: 1 tab Fluticasone/Salmeterol (Advair Diskus 250/50) 1 puffs INH Q12 [facility] Stop: 06/25/18 17:14 Last Admin: 05/28/18 08:19 Dose: 1 puffs Sertraline HCl (Zoloft) 100 mg [facility] [place] Stop: 06/26/18 08:59 Last Admin: 05/28/18 08:23 Dose: 100 mg Warfarin Sodium (Coumadin) 3 mg PO Q2D@1600 [facility] Stop: 06/26/18 15:59 Last Admin: 05/27/18 16:27 Dose: 3 mg Warfarin Sodium (Coumadin) 2 mg PO Q2D@1600 [facility] Stop: 06/25/18 16:44 Last Admin: 05/28/18 16:45 Dose: 2 mg Resident Activity Tracking Resident Involvement: Resident Care Provided Care Provided: Adult [facility] Medicine
[2018-05-28] MEDS: ATORVASTATIN 40 MG TAB PO SCH (20:42)
[2018-05-28] MEDS: POLYETHYLENE (MIRALAX) 17 GM PACK PO PRN (20:56)
[2018-05-28] MEDS: QUETIAPINE FUMARATE 100 MG TABLET PO SCH (22:23)
[2018-05-29] MEDS: AZELASTINE: ORDER AWAITING ACTION SCH ×2 (00:10→07:56)
[2018-05-29] MEDS: OXYCODONE/ACETAMINOPHEN 10-325 TAB PO PRN ×3 (01:14→11:49)
[2018-05-29 07:15] VITALS: O2SAT 95
[2018-05-29 07:25] LABS: Hematocrit (blood only) 43.5 % (42-52); Hemoglobin 14.3 g/dL (14.0-18.0); Mean Corpuscular Hgb Conc 32.9 g/dL (32-36); Mean Corpuscular Volume 98.6 fL (80-100); Mean Platelet Volume 10.4 fL (7.4-10.4); Platelet Count 156 K/uL (130-400); RDW Coefficient of Variation 17.2 % (11.5-14.5); RDW Standard Deviation 62.3 fL (36.4-46.3); Red Blood Count 4.41 M/uL (4.7-6.1); White Blood Count 4.81 K/uL (4.8-10.8)
[2018-05-29 07:51] LABS: BUN Creatinine Ratio 13.4 (10-20); Calcium 8.3 mg/dl (8.5-10.1); Creatinine Clr Calc Pharmacy 91.3 ml/min; Est GFR (African American) 81.1; Potassium 4.6 mmol/L (3.5-5.1)
[2018-05-29] MEDS: POLYETHYLENE (MIRALAX) 17 GM PACK PO PRN (07:56)
[2018-05-29] MEDS: SACUBITRIL-VALSARTAN 24-26 MG TAB PO SCH (07:58)
[2018-05-29] MEDS: BusPIRone 15 MG TAB PO SCH ×2 (07:58→13:08)
[2018-05-29] MEDS: AZITHROMYCIN 250 MG TAB PO SCH (07:58)
[2018-05-29] MEDS: PANTOprazole 40 MG TAB PO SCH (07:59)
[2018-05-29] MEDS: DOCUSATE SODIUM 100 MG CAP PO SCH (07:59)
[2018-05-29] MEDS: CLOPIDOGREL BISULFATE 75 MG TAB PO SCH (07:59)
[2018-05-29] MEDS: LORATADINE 10 MG TAB PO SCH (07:59)
[2018-05-29] MEDS: MAGNESIUM OXIDE 400 MG TAB PO SCH (08:00)
[2018-05-29] MEDS: ASPIRIN 81 MG ECTAB PO SCH (08:00)
[2018-05-29] MEDS: POTASSIUM CHLORIDE 20 MEQ TABCR PO SCH (08:00)
[2018-05-29] MEDS: CARVEDILOL 3.125 MG TAB PO SCH (08:01)
[2018-05-29] MEDS: AMIODARONE 200 MG TAB PO SCH (08:01)
[2018-05-29] MEDS: SERTRALINE HCL 100 MG TABLET PO SCH (08:01)
[2018-05-29] MEDS: FLUTICASONE/SALMETEROL 250/50 (ADVAIR) 14 PUFF/1 INHALER INH SCH (08:02)
[2018-05-29] MEDS: IPRATROPIUM BROMIDE/ALBUTEROL respimat INH INH SCH ×2 (08:02→13:08)
[2018-05-29] MEDS ORDERED: BUMETANIDE 1 MG TAB PO SCH (09:00)
--- NOTE | 2018-05-29 11:04 | Cardiology Progress Note ---
Date of Service May 29, 2018 Assessment & Plan (1) CHF (congestive heart failure): Clinically improved. He continues to diurese on his usual home dose of Bumex. He requested a switch back to torsemide. In equivalent dose would be 40 milligrams of torsemide daily. He was started on Entresto and seems to be tolerating that well. I think if he is ambulatory without significant dizziness or weakness he could be safely discharged home on his usual outpatient regimen of diuretic. Over the weekend, Dr. Curtis will be available for additional questions if necessary. I will return on Friday. (2) Shortness of breath: Improved (3) Ischemic cardiomyopathy: Patient was started on Entresto and appears to tolerate this well. He should be returned to his b.i.d. dosing of carvedilol. (4) Ventricular fibrillation: No clinical recurrence. On some beta blockade, would advocate reinitiating twice daily dosing of carvedilol. Electrolytes normal. Subjective The patient claims to be feeling well. He was able sleep for few hours over the course of the evening. He denies any orthopnea or paroxysmal nocturnal dyspnea. He did ambulate yesterday with improvement in his breathing difficulty. He did not have significant weakness or dizziness. Overall he feels as if his fluid status is improved. Physical Exam 2 Vital Signs (Past 24 Hours): Last Vital Signs Temp 36.6 C 05/29/18 07:13 Pulse 88 05/29/18 09:32 Resp 18 05/29/18 07:13 BP 92/64 L 05/29/18 07:13 Pulse Ox 95 05/29/18 07:13 Physical Exam: The patient is alert and oriented. Mood and affect appeared normal. He answered all questions appropriately. HEENT: Pupils are equal and reactive to light and accommodation. Extraocular movements are intact. The sclerae are anicteric. Neuro: Cranial nerves intact Lungs: Lungs are clear. Overall reduced excursion and decreased breath sounds. Cardiac: Heart demonstrates a regular rate and rhythm. Normal S1 and S2. No murmurs on examination. Pulses: The patient has palpable radial pulses bilaterally that are equal in intensity Extremities: There was no evidence of hypoperfusion. There is no cyanosis or clubbing. Mild edema. Skin: I did not appreciate any rashes on examination today. Results & Data Laboratory Results Abnormal Lab Results 05/29/18 05/29/18 07:08 07:08 WBC 4.81 RBC 4.41 L Hgb 14.3 Hct 43.5 MCV 98.6 MCH 32.4 MCHC 32.9 RDW Std Deviation 62.3 H RDW Coeff of Julian 17.2 H Plt Count 156 MPV 10.4 Sodium 136 Potassium 4.6 Chloride 108 H Carbon Dioxide 24 Anion Gap 4.0 BUN 15 Creatinine 1.14 Est Cr Clr Drug Dosing 91.3 Est GFR ( Amer) 81.1 Est GFR (Non-Af Amer) 70.0 BUN/Creatinine Ratio 13.4 Glucose 95 Calcium 8.3 L Specimen Hemolysis ECG Additional Comments: Telemetry demonstrates sinus rhythm with rare ectopy
[2018-05-29 12:15] VITALS: PULSE 99; TEMP 98.2
[2018-05-29 15:13] VITALS: BP 109/76
--- NOTE | 2018-05-29 15:45 | Discharge Summary ---
Date of Service May 29, 2018 Admission HPI Per Admitting Provider She presented to Dr. Simmons's office for outpatient appointment very weak tired and dyspneic. The patient states he was in the emergency room 4 days ago he had a fever and had escalated his weight to 256 pounds. The emergency department I released him he went home and increase his Bumex and spironolactone and went from 256 pounds to 237 pounds. The patient states that he has been feverish and chilled all weekend that he has had runny nose although its improved by Dr. Simmons's office he was very dyspneic on exertion and orthostatic. Dr. Eugene called for direct admission. Valuate the patient he says he felt chilled all weekend he is not taken his temperature he has not been around any ill contacts it is noted he did have influenza last year. He is markedly orthostatic on presentation and it may well be that he just over diuresed himself in a too quick fashion. Current serology including a flu swab and chest x-rays are pending Admission Exam Per Admitting Provider The patient appeared well nourished and normally developed. He is markedly orthostatic but and sitting in bed seems to be in only minor distress Vital signs as documented. Orthostasis is noted Head exam is unremarkable. Oropharynx erythematous exudates minor rhinorrhea is noted Neck is with mild jugular venous distension, thyromegaly, or lymphademopathy Lungs are diminished bilaterally Cardiac exam reveals Rhythm is regular. First and second heart sounds normal. Systolic ejection murmur Abdominal exam reveals normal bowel sounds, no masses, no organomegaly Extremities are with mild edema and both pedal pulses are present Neurologic exam is A&Ox3, no focal deficits, strength is equal bilateral Skin is warm Dry without bruises or lesions Principal Diagnosis COPD exacerbation in the setting of viral URI Discharge Exam General: In NAD CV: RRR, no m/r/g Pulm: CTAB, equal breath sounds bilaterally Abdomen: +BS, NTTP in all quadrants, non-distended LE: no LE pitting edema, no calf tenderness to palpation Discharge Data Allergies Allergy/AdvReac Type Severity Reaction Status Date / Time heparin Allergy Severe SEE COMMENT Verified 05/22/18 14:27 Iodinated Contrast- Oral and Allergy Severe swelling, Verified 05/22/18 14:27 IV Dye hives ibuprofen AdvReac Intermediate nausea Verified 05/22/18 14:27 vomiting Consultations 05/26/18 16:44 Consult Cardiology Routine 05/26/18 16:47 Consult Case Management - Discharge Planning Routine Hospital Course (1) DVT prophylaxis: (2) Chronic low back pain: (3) Depression: (4) Weakness: 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 Pt was having rhinorrhea, cough, fever/chills since 05/21/18. No known sick contacts. ED visit on 05/22/18: had fever and was hypervolemic. Pt diuresed himself with home bumex and spironolactone with improvement in weight to 237lb from 256lb near baseline. Pt likely had COPD/CHF exacerbation in the setting of viral URI. Received azithromycin in addition to home medications. Was started on entresto for cardiomyopathy which patient did well on. Discharged with remaining 2 day course of azithromycin and PCP/cardiology follow up. (1) Weakness: improved -Acute likely in the setting of acute viral URI vs. bronchitis -CXR: no acute changes -BCx: NGTD (2) Ischemic cardiomyopathy: Patient has ischemic cardiomyopathy with both chronic systolic and diastolic heart failure. EF 10%. -EKG: unchanged: 77 NSR QTc 430 (old inferior/anterior infarct, L axis deviation and non-specific intraventricular conduction block) -Home regimen: carvedilol 3.125 BID, amiodarone 200mg BID and Bumex 2 mg QAM, spironolactone 25 mg daily -Received home: aspirin, plavix and atorvastatin -Started on Entresto 24-26mg BID which pt tolerated well -Cardiology was consulted (3) COPD (chronic obstructive pulmonary disease): On home Advair, combivent respimat QID and supplemental oxygen as needed Recived azithromycin - discharged with remaining 2 days course (4) Paroxysmal A-fib: On carvedilol and amiodarone Continued Coumadin 2 alternating with 3 - INR 2.7 (5) Depression/Anxiety: On Zoloft 100 mg HS, Seroquel 200 HS, BuSpar 15mg TID (6) Chronic low back pain: On home oxycodone and acetaminophen (5) CHF (congestive heart failure): (6) COPD (chronic obstructive pulmonary disease): (7) Paroxysmal A-fib: Total Time Total Time Spent Total Time Spent (In Minutes): <30 mins Total Time Includes: Examination of the Patient, Discharge Planning, Medication Reconciliation and Communication With Other Providers Discharge Plan Discharge Items Patient Disposition: Home - Self-Care Reason For Visit: WEAKNESS,HEART FAILURE Discharge Diagnosis: COPD exacerbation in the setting of viral URI Condition: Good Discharge Goals: Decrease discomfort, Diagnostic testing and Therapeutic intervention Activity: Resume your previous activity Non-emergency contact: Primary Care Provider Call non-emergency contact if: you have any medication questions, your symptoms worsen, your pain is not controlled and your temperature is above 101.5 Follow-up/Referrals: Catherine Cooper PA-C [Physician Agency Service Coordinator] - 06/05/18 2:00 pm (Please, follow up at [facility] Office with Catherine Cooper PA-C on FridayJune 05 at 2:00 pm. *If you need to change this appointment, call the office at [phone].) Hilda Marie MD [Primary Care Provider] - 06/02/18 2:00 pm (Please, follow up with Dr. Marie on FridayJune 02 at 2:00 pm. *If you need to change this appointment, call her office at [phone].) Addtl Provider Instructions: Ms. Morgan you were admitted for shortness of breath and you were treated. Your condition improved prior to discharge. Please follow the instructions below: Take antibiotic, Azithromycin 250mg, 1 pill once a day for another two days starting tomorrow (05/30-05/31) Start taking Entresto 1 tablet twice a day as prescribed Continue taking your remaining home medications as prescribed Please follow up with your primary care doctor and bsa/aml compliance officer as scheduled See your primary care doctor or go to the nearest emergency room if you are having worsening of your symptoms Prescriptions: New azithromycin [Zithromax] 250 mg Tablet 250 mg PO QAM Qty: 2 RF: 0 sacubitril-valsartan [Entresto] 24-26 mg Tablet 1 tab PO BID Qty: 60 RF: 0 Continue fluticasone-salmeterol 250-50 mcg/dose blister with device 1 puff Inhalation Q12H RF: 0 atorvastatin 80 mg tablet 80 mg PO HS RF: 0 aspirin 81 mg Tablet,Delayed Release (Dr/Ec) 81 mg PO QAM RF: 0 azelastine 137 mcg (0.1 %) aerosol,spray 1 spray Intranasal BID PRN (Reason: Nasal Congestion) RF: 0 buspirone 15 mg tablet 15 mg PO TID RF: 0 multivitamin [Daily Multiple] Tablet 1 tab PO QAM RF: 0 cyclobenzaprine 10 mg Tablet 10 mg PO BID PRN (Reason: Muscle Spasm) RF: 0 carvedilol 6.25 mg tablet 3.125 mg PO BID RF: 0 polyethylene glycol 3350 [Miralax] 17 gram Powder In Packet 17 g PO DAILY PRN (Reason: Constipation) RF: 0 sertraline 100 mg tablet 100 mg PO QAM RF: 0 clopidogrel 75 mg tablet 75 mg PO QAM RF: 0 quetiapine 100 mg tablet 200 mg PO HS RF: 0 oxycodone-acetaminophen 10-325 mg tablet 1 tab PO Q4H PRN (Reason: Pain) RF: 0 pantoprazole 40 mg tablet,delayed release (DR/EC) 40 mg PO QAM RF: 0 ranitidine HCl 150 mg tablet 150 mg PO Q12H RF: 0 docusate sodium [Colace] 100 mg Capsule 100 mg PO BID RF: 0 loratadine [Claritin] 10 mg Tablet 10 mg PO QAM RF: 0 melatonin 10 mg Tablet 10 mg PO HS RF: 0 ipratropium-albuterol 20-100 mcg/actuation mist 1 puff Inhalation QID RF: 0 spironolactone 25 mg tablet 25 mg PO 1600 RF: 0 warfarin [Coumadin] 2 mg Tablet 2 mg PO Q2D RF: 0 albuterol sulfate [Ventolin HFA] 90 mcg/actuation Hfa Aerosol Inhaler 2 puff INHALATION Q6H PRN (Reason: Shortness Of Breath) RF: 0 warfarin 2 mg tablet 3 mg PO Q2D RF: 0 diclofenac sodium [Voltaren] 1 % gel 4 gm TOP QID PRN (Reason: Pain) RF: 0 potassium chloride [Klor-Con M20] 20 mEq Tablet,Er Particles/Crystals 20 meq PO QAM 30 Days Qty: 30 RF: 0 magnesium oxide 400 mg (241.3 mg magnesium) Tablet 400 mg PO QAM 30 Days Qty: 30 RF: 0 amiodarone 200 mg Tablet 200 mg PO BID Qty: 60 RF: 0 acetaminophen [Tylenol Extra Strength] 500 mg Tablet 1,000 mg PO Q6H PRN (Reason: Pain) RF: 0 flaxseed oil-omega 3,6,9 1,300 mg-845 mg -117 mg-117 mg Capsule 1 cap PO 1200 RF: 0 bumetanide 2 mg tablet 2 mg PO QAM RF: 0 Visit Report Forms: My [facility] Portal Stand-Alone Forms: My [facility] Discharge Orders: Discharge Order (Routine); Ordered 05/29/18 Ordered By: Michael Avelar Admission Data Admit Date/Time: 05/26/18 16:18 Attending Provider: Delfin Carrillo Admit Provider: Mario Torrez Primary Care Provider: Hilda Marie Other Providers: Loki Guerra ; Mario Torrez Service: Telemetry Other Interventions: Discharge Summary Assessment (RN) Last Done: 05/29/18 15:11 Pending Studies at Discharge: No DC Date/Time DO NOT enter until pt leaves facility: 05/29/18 15:45 Supervising Physician Co-Signing Physician Notes I personally examined the patient and verified all carranza points of history and exam, discussed case, and agree with decision making with Dr Avelar. Feeling better, wants to go home. Vitals noted, in general he is awake and alert fatigue but no acute distress. HEENT normocephalic atraumatic mucous membranes are moist. Lungs unlabored no use of accessory muscles good effort. Neuro shows no focal deficits. COPD exacerbation-finish a course of Zithromax. This appears to have precipitated his acute CHF, but is improving. Acute on chronic systolic CHFhe has a fairly severe cardiomyopathy, and I suspect that the physiologic stress from the COPD exacerbation is the precipitating factor of his current exacerbation. He is now stable for home, we will continue Entresto. Otherwise meds as above. I see after discharge has been written that he was talking with cardiology about a equivalent dose of torsemide, this change can always be made as an outpatient. stable for home Resident Activity Tracking Resident Involvement: Resident Care Provided Care Provided: Adult Hospital Medicine
== END 2018-05-29 15:45 | disposition home health service (06) | DRG 190 ==
LOC: SUATTDRO 16:18 → 2N 16:18
DX: I25.10 Atherosclerotic heart disease of native coronary artery without angina pectoris; Z79.899 Other long term (current) drug therapy; Z79.51 Long term (current) use of inhaled steroids; J06.9 Acute upper respiratory infection, unspecified; Z87.891 Personal history of nicotine dependence; E86.0 Dehydration; Z88.6 Allergy status to analgesic agent; Z79.02 Long term (current) use of antithrombotics/antiplatelets; I25.5 Ischemic cardiomyopathy; R53.1 Weakness; G89.29 Other chronic pain; I48.0 Paroxysmal atrial fibrillation; M54.5 Low back pain; Z91.041 Radiographic dye allergy status; Z95.810 Presence of automatic (implantable) cardiac defibrillator; Z79.01 Long term (current) use of anticoagulants; Z88.8 Allergy status to other drugs, medicaments and biological substances; F32.9 Major depressive disorder, single episode, unspecified; F41.9 Anxiety disorder, unspecified; Z79.82 Long term (current) use of aspirin; I50.43 Acute on chronic combined systolic (congestive) and diastolic (congestive) heart failure; J44.1 Chronic obstructive pulmonary disease with (acute) exacerbation

== ENCOUNTER 2018-09-01 17:43 | Inpatient (IN) ==
[2018-09-01] MEDS ORDERED: ONDANSETRON INJ 2 MG/ML 2 ML VIAL IV STA (18:10)
[2018-09-01] MEDS ORDERED: HYDROmorphone INJ 1 MG/ML SYRINGE IV STA ×3 (18:10→20:26)
[2018-09-01] MEDS: SODIUM CHLORIDE 0.9% 500 ML IV SCH ×4 (18:30→23:52)
[2018-09-01 18:44] LABS: Base Excess VBG 6.5 mEq/L; Oxygen Saturation VBG 75.9 %; pH VBG 7.43 (7.36-7.41)
[2018-09-01 18:45] LABS: Alanine Aminotransferase 21 U/L (12-78); Albumin Level 3.5 gm/dl (3.4-5.0); Aspartate Aminotransferase 22 U/L (15-37); BUN Creatinine Ratio 12.5 (10-20); Bilirubin Direct 0.1 mg/dl (0-0.2); Blood Urea Nitrogen 18 mg/dl (7-18); Calcium 8.2 mg/dl (8.5-10.1); Carbon Dioxide 32 mmol/L (21-32); Chloride 97 mmol/L (98-107); Creatinine Clr Calc Pharmacy 73.5 ml/min; Est GFR (African American) 61.7; Est GFR (Non-African American) 53.2; Glucose 102 mg/dl (70-99); Magnesium 2.1 mg/dl (1.8-2.4); Potassium 3.9 mmol/L (3.5-5.1); Sodium 132 mmol/L (136-145)
[2018-09-01 18:48] LABS: Partial Thromboplastin Ratio 3.9; Prothrombin Time > 90.0 Seconds (9.0-12.0)
[2018-09-01 18:50] LABS: Alkaline Phosphatase 86 U/L (45-117); Bilirubin,Total 0.4 mg/dl (0.2-1); NT Pro B Type Natriuretic Pept 935 pg/ml (0-900); Total Protein 7.8 gm/dl (6.4-8.2); Troponin I < 0.015 ng/ml (0-0.045)
[2018-09-01 18:51] LABS: INR > 10.4 (0.9-1.1)
--- NOTE | 2018-09-01 18:59 | CT Scan Report ---
CT SCAN OF THE CERVICAL SPINE CLINICAL HISTORY: Fall. COMPARISON STUDY: CT of the cervical spine dated 06/22/2018. TECHNIQUE: CT scan of the cervical spine is performed from the skull base to the upper thoracic spine . Images are reviewed in the axial, sagittal, and coronal planes. IV contrast was not administered fo r this examination. A dose lowering technique was utilized adhering to the principles of ALARA. FINDINGS: Skeletal structures: The skeletal structures are well mineralized. There is no evidence of fracture o r subluxation involving the cervical spine. Vertebral body height and alignment are maintained. There is straightening of the cervical lordosis. Small anterior osteophytes are seen throughout. The odont oid process and lateral masses are intact. The atlantoaxial articulation is preserved noting mild pro ductive degenerative change. The spinous processes appear intact. There is mild to moderate multileve l cervical spondylosis. Uncovertebral and facet arthropathy contribute to neural foraminal stenosis a t several levels. This is greatest in the lower cervical spine. Intervertebral discs: Mild disc space narrowing is seen at C6-C7 with associated endplate sclerosis. The remaining disc spaces are maintained. Central canal: The posterior disc osteophyte complex at C6-C7 may contribute to mild acquired comprom ise of the central canal. Soft tissues: The prevertebral and paraspinous soft tissues are within normal limits. There is athero sclerotic calcification of the carotid bulbs. Pacemaker leads are noted in the left axilla. Calvarium: The visualized calvarium at the skull base appears intact. Brain parenchyma: Partially visualized brain parenchyma the skull base is within normal limits. Sinuses and mastoids: The visualized paranasal sinuses are clear. The mastoid air cells are well pneu matized. Lung apices: Clear as visualized. IMPRESSION: There is no evidence of fracture or subluxation involving the cervical spine. Electronically signed by: Jacky Zhou M.D. 09/01/2018 6:57 PM
--- NOTE | 2018-09-01 19:01 | CT Scan Report ---
CT SCAN OF THE BRAIN WITHOUT IV CONTRAST CLINICAL HISTORY: Fall. COMPARISON STUDY: CT of the brain dated 06/22/2018. TECHNIQUE: Unenhanced axial CT scan of the brain is performed from the vertex to the skull base. A d ose lowering technique was utilized adhering to the principles of ALARA. FINDINGS: Brain parenchyma: The brain parenchyma is normal in appearance. There is no hemorrhage, mass effect, or evidence of acute territorial ischemia by CT criteria. Vargas-white matter differentiation is preser berta. No extra-axial fluid collection is seen. Ventricles, sulci, cisterns: Normal in configuration. Intracranial vasculature: There is atherosclerotic calcification of the cavernous carotid arteries. Calvarium: Unremarkable. Sinuses and mastoids: The visualized paranasal sinuses are clear. The mastoid air cells are well pneu matized. Orbits: The bony orbits are grossly intact. IMPRESSION: No acute intracranial abnormality. Electronically signed by: Jacky Zhou M.D. 09/01/2018 6:59 PM
--- NOTE | 2018-09-01 19:13 | CT Scan Report ---
CT SCAN OF THE ABDOMEN AND PELVIS WITHOUT IV CONTRAST CLINICAL HISTORY: Fall. Right-sided abdominal pain. COMPARISON STUDY: Abdominal CT dated 10/01/2017. TECHNIQUE: CT scan of the abdomen and pelvis is performed from the lung bases to the proximal femora. Images are reviewed in the axial, sagittal, and coronal planes. IV contrast was not administered for this examination as per the referring clinician. Note that the examination was performed in signific antly suboptimal fashion without IV contrast. A dose lowering technique was utilized adhering to the principles of ALARA. CT DOSE: 2350.21 mGy.cm FINDINGS: Lung bases: The heart is mildly enlarged and without pericardial effusion. The coronary arteries are densely calcified. Pacemaker leads are noted. Emphysema is suspected. There is elevation of the left hemidiaphragm with patchy dependent bibasilar airspace consolidation. No pneumothorax is seen in eith er lung base. No pleural effusion is identified. There is a small hiatal hernia. Liver: The unenhanced liver is normal in size, contour, and attenuation. There is no intrahepatic delphine iary ductal dilatation. Gallbladder: Unremarkable. Spleen: Normal in size and attenuation. Pancreas: The unenhanced pancreas is moderately atrophic and grossly unremarkable. Adrenal glands: Unremarkable. Kidneys: The unenhanced kidneys history cortical atrophy and are without hydronephrosis. There is a p unctate nonobstructing calculus in the lower pole of the left kidney. There is no evidence of contour deforming renal mass lesion. Abdominal vasculature: There is advanced atherosclerotic calcification and mild ectasia of the abdomi nal aorta. There are bilateral common iliac artery aneurysms, measuring up to 3.3 cm on the right and 3.3 cm on the left. A right internal iliac artery aneurysm measures up to 2.2 cm, and a left interna l iliac artery aneurysm measures up to 1.7 cm. Bowel: The small bowel and colon are normal in course and caliber. The appendix is well-visualized a nd normal. Peritoneum: There is no intraperitoneal free air or abdominal ascites. There is a small fat-containin g umbilical hernia. Lymphadenopathy: None. Pelvic viscera: The bladder is normal as visualized. The prostate gland is diminutive and heterogeneo us. Skeletal structures: The skeletal structures are osteopenic. No lytic or blastic lesions are seen. Th ere are chronic compression deformities of T10, T11, T12, L1, L2, L4, and L5. These are unchanged fro m 10/01/2017. There are healed right-sided rib fractures. IMPRESSION: 1. Significantly suboptimal examination without IV contrast. 2. There is no evidence of solid organ injury in the abdomen or pelvis on this unenhanced examination . 3. There are bilateral common iliac artery aneurysms as well as bilateral internal iliac artery aneur ysms. These are similar in appearance to previous. 4. Cardiomegaly and cardiac pacemaker. 5. Dependent airspace consolidation is seen at both lung bases. This could represent atelectasis and/ or an infectious/inflammatory pneumonitis. Clinical correlation will be required. 6. Additional findings as above. Electronically signed by: Jacky Zhou M.D. 09/01/2018 7:11 PM
--- NOTE | 2018-09-01 19:15 | XRay Report ---
SINGLE VIEW PELVIS; 3 VIEWS RIGHT FEMUR CLINICAL HISTORY: Fall. Right hip and leg pain. FINDINGS: An AP view of the pelvis with AP, frog-leg, and crosstable lateral views of the right femur are obtained. Correlation is made with pelvic CT dated 10/01/2017. The skeletal structures are osteop enic. There is no radiographic evidence of fracture involving the hips or bony pelvis. There is no ra diographic evidence of femoral fracture. Mild/moderate arthritic change and joint space narrowing is seen in the hips. The sacroiliac joints are preserved. The right knee joint is grossly maintained. Th e overlying soft tissues are normal in appearance. There is advanced atherosclerotic calcification of the right femoral artery with a large stent in place. Surgical clips are noted in the left groin. Th ere is no bowel obstruction. Bilateral iliac artery aneurysms are noted. IMPRESSION: 1. There is no radiographic evidence of fracture involving the hips or pelvis. 2. There is no radiographic evidence of right femoral fracture. 3. Additional findings as above. Electronically signed by: Jacky Zhou M.D. 09/01/2018 7:14 PM
--- NOTE | 2018-09-01 19:16 | XRay Report ---
SINGLE VIEW CHEST CLINICAL HISTORY: Fall. FINDINGS: An AP, portable, upright chest radiograph is compared to study dated 06/22/2018 and correlate d with chest CT dated 09/13/2017. The examination is degraded by portable technique and patient rotati on. A 3-lead cardiac AICD is unchanged in position and partially obscures the left lower chest. The h eart is enlarged and there is atherosclerotic calcification of the thoracic aorta. The pulmonary vasc ulature is noncongested. There is chronic elevation of the left hemidiaphragm with associated left ba silar opacities. No large pleural effusion or pneumothorax is seen. The skeletal structures are osteo penic. There are numerous healed right-sided rib fractures. IMPRESSION: 1. Cardiomegaly and AICD without radiographic evidence of congestive failure. 2. There is chronic elevation of the left hemidiaphragm and bibasilar airspace opacities. This could represent atelectasis and/or an infectious/inflammatory pneumonitis. Clinical correlation will be req uired. Electronically signed by: Jacky Zhou M.D. 09/01/2018 7:15 PM
--- NOTE | 2018-09-01 19:20 | XRay Report ---
THORACIC SPINE 3 VIEWS CLINICAL HISTORY: Fall. FINDINGS: AP, lateral, and swimmer's views of the thoracic spine are correlated with chest CT dated . The skeletal structures are osteopenic. There is no radiographic evidence of acute fracture or malalignment. Numerous chronic thoracolumbar compression deformities are similar to previous. Ant erior osteophytes are seen throughout. The transverse processes and pedicles are grossly intact as se en on the frontal view. The disc spaces appear preserved. The heart is enlarged and AICD leads are ob served. There is chronic elevation of left hemidiaphragm and left basilar opacities. IMPRESSION: 1. There is no radiographic evidence of acute fracture or malalignment involving the thoracic spine. 2. Osteopenia, degenerative change, and numerous chronic thoracolumbar compression deformities as abo ve. Electronically signed by: Jacky Zhou M.D. 09/01/2018 7:18 PM
[2018-09-01] MEDS ORDERED: PHYTONADIONE 5 MG TAB PO STA ×2 (19:25→20:46)
[2018-09-01 20:10] LABS: Basophils # (auto) 0.02 K/uL (0-0.2); Basophils % (auto) 0.3 %; Eosinophils # (auto) 0.19 K/uL (0-0.5); Eosinophils % (auto) 2.5 %; Hematocrit (blood only) 38.2 % (42-52); Hemoglobin 12.8 g/dL (14.0-18.0); Immature Granulocytes # (auto) 0.06 K/uL (0.00-0.02); Immature Granulocytes % (auto) 0.8 %; Lymphocytes # (auto) 1.22 K/uL (1.2-3.4); Lymphocytes % (auto) 15.8 %; Mean Corpuscular Hgb Conc 33.5 g/dL (32-36); Mean Corpuscular Volume 101.9 fL (80-100); Mean Platelet Volume 10.4 fL (7.4-10.4); Monocytes # (auto) 1.39 K/uL (0.11-0.59); Neutrophils # (auto) 4.83 K/uL (1.4-6.5); Neutrophils % (auto) 62.6 %; Platelet Count 151 K/uL (130-400); RDW Standard Deviation 63.5 fL (36.4-46.3); Red Blood Count 3.75 M/uL (4.7-6.1); White Blood Count 7.71 K/uL (4.8-10.8)
[2018-09-01 20:35] LABS: iSTAT Creatinine 1.4 mg/dl (0.6-1.3); iSTAT Hemoglobin 11.9 g/dl (14.0-18.0); iSTAT Ionized Calcium 1.03 mmol/l (1.12-1.32)
--- NOTE | 2018-09-01 22:22 | History & Physical Report ---
Date of Service September 01, 2018 Assessment & Plan (1) Elevated INR: 57-year-old male with a complex medical history including ischemic cardiomyopathy, atrial fibrillation, COPD presents to the hospital by direction of his home health nurse who found a INR greater than 10 on lab draws today. Supratherapeutic INR Patient given 10 of vitamin K in the ED, will recheck INR in 6 hours Holding warfarin, clopidogrel, aspirin Plan is to restart aspirin clopidogrel as soon as INR normalizes, may coincide with daily dosing Falls precaution Right hip pain status post fall Pain scan was negative for acute fractures or development of concerning hematomas The patient received 3 mg of Dilaudid in the ED For the time being we will continue the patient's home oxycodone and added on IV Tylenol. Syncope, falls Was recently seen at the beginning of June for syncopal episodesno med changes were deemed necessary at that time. The patient did not have orthostatic changes at that time. Continue to follow blood pressures, orthostatic blood pressures ordered Falls precautions Chronic systolic heart failureCADhypertensionatrial fibrillation Ischemic cardiomyopathyEF of 20% Continue Entresto, spironolactone, amiodarone, carvedilol, atorvastatin Holding aspirin and clopidogrel brieflyrestart as INR normalizes, may coincide with daily dosing anyways COPDstable, on 3 L at baseline Holding home inhalers, replacing with nebulized treatments while in the inpatient Anxiety Continue sertraline, Seroquel Chronic back pain Continue cyclobenzaprine, oxycodone Elevated creatinine At baseline CODE STATUS Full DVT prophylaxis SCDs FEN Heart healthy diet, low sodium, fluid restriction (2) Recurrent falls: (3) Chronic systolic (congestive) heart failure: (4) Coagulopathy: (5) Acute hyponatremia: (6) Chronic low back pain: (7) Depression: (8) Weakness: (9) Coronary artery disease: (10) Atrial fibrillation: (11) HLD (hyperlipidemia): (12) Hypertension: (13) Syncope: History of Present Illness Primary Care Provider: Hilda Marie MD 57-year-old male with a complex medical history including ischemic cardiomyopathy, atrial fibrillation, COPD presents to the hospital by direction of his home health nurse who found a INR greater than 10 on lab draws today. The patient states that he has been taking his Coumadin as directed, 2 mg daily. He states that over the past week he has developed bruises all over his legs and arms. He says that one week ago he did not have any bruises, but slowly over this duration he reports minor injuriesbumping into things. In addition to minor injuries, the patient has had a number of falls over the past week. He relates the falls to syncopal episodes that he has been dealing with. The patient was recently admitted for syncopal episodes at the beginning of June. He says that he remembers prior to and after passing out. He did have one concerning fall at home, where he hurt his right hip and hit his head. He says that these falls have been unwitnessed, but his roommate has heard him fall and has come quickly to his attention. He describes severe right hip pain since the fall. Constitutional; patient denies fevers, chills, night sweats. He has been feeling off lately and fatigued. Chest; no chest pain, no palpitations, no worsening edema, no cough Abdomen; no abdominal pain, no nausea/vomiting/diarrhea Allergies Allergy/AdvReac Type Severity Reaction Status Date / Time heparin Allergy Severe SEE COMMENT Verified 09/01/18 20:58 Iodinated Contrast- Oral and Allergy Severe swelling, Verified 09/01/18 20:58 IV Dye hives ibuprofen AdvReac Intermediate nausea Verified 09/01/18 20:58 vomiting Home Medications Home Medications Medication Instructions Recorded Confirmed Type aspirin 81 mg PO QAM 03/02/18 09/01/18 History atorvastatin 80 mg PO HS 03/02/18 09/01/18 History azelastine 1 spray INTRANASAL BID PRN 03/02/18 09/01/18 History buspirone 15 mg PO TID 03/02/18 09/01/18 History albuterol sulfate [Ventolin HFA] 2 puff INHALATION Q6H PRN 03/03/18 09/01/18 History clopidogrel 75 mg PO QAM 03/03/18 09/01/18 History cyclobenzaprine 10 mg PO BID PRN 03/03/18 09/01/18 History loratadine [Claritin] 10 mg PO QAM 03/03/18 09/01/18 History melatonin 10 mg PO HS 03/03/18 09/01/18 History multivitamin [Daily Multiple] 1 tab PO QAM 03/03/18 09/01/18 History oxycodone-acetaminophen 1 tab PO Q4H PRN 03/03/18 09/01/18 History pantoprazole 40 mg PO QAM 03/03/18 09/01/18 History polyethylene glycol 3350 [Miralax] 17 g PO DAILY PRN 03/03/18 09/01/18 History quetiapine 200 mg PO HS 03/03/18 09/01/18 History ranitidine HCl 150 mg PO Q12H 03/03/18 09/01/18 History sertraline 150 mg PO QAM 03/03/18 09/01/18 History spironolactone 50 mg PO 1600 03/03/18 09/01/18 History diclofenac sodium [Voltaren] 4 gm TOP QID PRN 03/30/18 09/01/18 History amiodarone 200 mg PO BID #60 tab 04/30/18 09/01/18 Rx acetaminophen [Tylenol Extra 1,000 mg PO Q6H PRN 05/22/18 09/01/18 History Strength] flaxseed oil-omega 3,6,9 1 cap PO 1200 05/22/18 09/01/18 History fluticasone propion-salmeterol 1 puff INHALATION BID 06/22/18 09/01/18 History [Advair Diskus] warfarin [Coumadin] 2 mg PO DAILY #0 tab 06/26/18 09/01/18 Rx Ca carb-Ca gluc-Mg ox-Mg gluco 0 mg PO DAILY 09/01/18 09/01/18 History [Calcium Magnesium] carvedilol [Coreg] 3.125 mg PO BID 09/01/18 09/01/18 History cetirizine [Zyrtec] 10 mg PO DAILY 09/01/18 09/01/18 History coenzyme Q10 [Co Q-10] 200 mg PO DAILY 09/01/18 09/01/18 History digoxin [Digox] 125 mcg PO DAILY 09/01/18 09/01/18 History docusate sodium [Colace] 200 mg PO HS 09/01/18 09/01/18 History ginkgo biloba 120 mg PO DAILY 09/01/18 09/01/18 History ipratropium-albuterol [Combivent 1 puff INHALATION TID 09/01/18 09/01/18 History Respimat] lactobacillus combination no.4 0 mmu cells PO DAILY 09/01/18 09/01/18 History [Probiotic] ondansetron HCl [Zofran] 4 mg PO QID PRN 09/01/18 09/01/18 History saw palmetto 0 mg PO BID 09/01/18 09/01/18 History torsemide 20 mg PO BID 09/01/18 09/01/18 History torsemide [Demadex] 20 mg PO UD 09/01/18 09/01/18 History torsemide [Demadex] 40 mg PO UD 09/01/18 09/01/18 History Past Med/Surg History Medical History Anxiety (Chronic) Diastolic CHF (Resolved) Hypotension (Resolved) NSTEMI (non-ST elevated myocardial infarction) (Resolved) Systolic CHF (Resolved) CHF (congestive heart failure) (Resolved) Anemia of chronic disease History of venous thromboembolism History of orthostatic hypotension PVD (peripheral vascular disease) Paroxysmal A-fib COPD (chronic obstructive pulmonary disease) Ischemic cardiomyopathy Acid reflux Aneurysm pt reports multiple aneurysms of LLE w/ stents Anxiety Atrial fibrillation COPD (chronic obstructive pulmonary disease) CVA (cerebral vascular accident) no residual effects Cardiac LV ejection fraction <20% Collar bone fracture Compression fracture Congestive heart failure DJD (degenerative joint disease) Hepatitis C History of left heart catheterization x10 per pt Hyperlipidemia Kidney disease DELICIA (obstructive sleep apnea) On Coumadin for atrial fibrillation Pacemaker Rib fractures Weakness Surgical History Status post popliteal-distal bypass surgery H/O rotator cuff surgery right S/P insertion of iliac artery stent Family History Other No significant family history Social History Preferred Language: Chinese Communication Ability: Effective Beliefs That Will Affect Care: None marital status: Current Living Situation: Boarding Home Feels Safe at Home: Yes Safety Concerns: Feels Safe At This Time Smoking Status: Former smoker Do You Dip or Chew Tobacco: No Hx Alcohol Use: No Hx Substance Use: No Review of Systems Review of Systems: All systems reviewed & are unremarkable except as noted in HPI & below Physical Exam Vital Signs (Past 24 Hours): Last Vital Signs Temp 36.8 C 09/01/18 17:49 Pulse 73 09/01/18 21:00 Resp 13 09/01/18 21:00 BP 114/73 09/01/18 21:00 Pulse Ox 96 09/01/18 21:00 Constitutional: WD/WN, vitals as above Eyes: PERRL, conjunctivae normal, anicteric sclerae ENMT: external ear and nose normal, oropharynx normal Neck: trachea midline, no thyromegaly Respiratory: normal respiratory effort, lungs clear to auscultation Cardiovascular: RRR, no murmur, no edema Gastrointestinal (Abdomen): normal bowel sounds, soft, nontender, no hepatosplenomegaly Musculoskeletal: no cyanosis or clubbing, extremities motor strength 5/5 Right hip tenderness with palpation Skin: no rashes, warm and dry Multiple ecchymotic lesions on bilateral lower and upper extremity Neurologic: PERRL, EOMI, accommodation nl, no face palsy, no dysarthria Psychiatric: A+Ox3, euthymic affect Results & Data Laboratory Results Laboratory Last Values WBC 7.71 K/uL (4.8-10.8) 09/01/18 18:17 RBC 3.75 M/uL (4.7-6.1) L 09/01/18 18:17 Hgb 12.8 g/dL (14.0-18.0) L 09/01/18 18:17 POC Hgb 11.9 g/dl (14.0-18.0) L 09/01/18 20:23 Hct 38.2 % (42-52) L 09/01/18 18:17 POC Hct 35 % (42-52) L 09/01/18 20:23 MCV 101.9 fL (80-100) H 09/01/18 18:17 MCH 34.1 pg (25-34) H 09/01/18 18:17 MCHC 33.5 g/dL (32-36) 09/01/18 18:17 RDW Std Deviation 63.5 fL (36.4-46.3) H 09/01/18 18:17 RDW Coeff of Julian 17.0 % (11.5-14.5) H 09/01/18 18:17 Plt Count 151 K/uL (130-400) 09/01/18 18:17 MPV 10.4 fL (7.4-10.4) 09/01/18 18:17 Immature Gran % (Auto) 0.8 % 09/01/18 18:17 Neut % (Auto) 62.6 % 09/01/18 18:17 Lymph % (Auto) 15.8 % 09/01/18 18:17 Apache % (Auto) 18.0 % 09/01/18 18:17 Eos % (Auto) 2.5 % 09/01/18 18:17 Baso % (Auto) 0.3 % 09/01/18 18:17 Immature Gran # (Auto) 0.06 K/uL (0.00-0.02) H 09/01/18 18:17 Neut # (Auto) 4.83 K/uL (1.4-6.5) 09/01/18 18:17 Lymph # (Auto) 1.22 K/uL (1.2-3.4) 09/01/18 18:17 Apache # (Auto) 1.39 K/uL (0.11-0.59) H 09/01/18 18:17 Eos # (Auto) 0.19 K/uL (0-0.5) 09/01/18 18:17 Baso # (Auto) 0.02 K/uL (0-0.2) 09/01/18 18:17 PT > 90.0 Seconds (9.0-12.0) H 09/01/18 18:17 INR > 10.4 (0.9-1.1) H* 09/01/18 18:17 APTT 105.0 Seconds (21.0-31.0) H* 09/01/18 18:17 PTT Ratio 3.9 09/01/18 18:17 VBG pH 7.43 (7.36-7.41) H 09/01/18 18:30 VBG pCO2 49 mmHg (38-50) 09/01/18 18:30 VBG pO2 40 mmHg 09/01/18 18:30 VBG HCO3 32 mmol/L 09/01/18 18:30 VBG O2 Saturation 75.9 % 09/01/18 18:30 VBG Base Excess 6.5 mEq/L 09/01/18 18:30 Barometric Pressure 731.6 mm/Hg 09/01/18 18:30 POC Sodium 136 mEq/L (135-144) 09/01/18 20:23 Sodium 132 mmol/L (136-145) L 09/01/18 18:17 POC Potassium 4.0 mEq/L (3.3-5.0) 09/01/18 20:23 Potassium 3.9 mmol/L (3.5-5.1) 09/01/18 18:17 POC Chloride 92 mEq/L (101-112) L 09/01/18 20:23 Chloride 97 mmol/L (98-107) L 09/01/18 18:17 Carbon Dioxide 32 mmol/L (21-32) 09/01/18 18:17 POC Total CO2 32 mEq/l (24-31) H 09/01/18 20:23 Anion Gap 3.0 (3-11) 09/01/18 18:17 POC Anion Gap 17.0 mmol/L (16-25) 09/01/18 20:23 POC BUN 17 mg/dl (7-18) 09/01/18 20:23 BUN 18 mg/dl (7-18) 09/01/18 18:17 Creatinine 1.43 mg/dl (0.6-1.4) H 09/01/18 18:17 POC Creatinine 1.4 mg/dl (0.6-1.3) H 09/01/18 20:23 Est Cr Clr Drug Dosing 73.5 ml/min 09/01/18 18:17 Est GFR ( Amer) 61.7 09/01/18 18:17 Est GFR (Non-Af Amer) 53.2 09/01/18 18:17 BUN/Creatinine Ratio 12.5 (10-20) 09/01/18 18:17 Glucose 102 mg/dl (70-99) H 09/01/18 18:17 POC Glucose (other) 116 mg/dl (70-99) H 09/01/18 20:23 Calcium 8.2 mg/dl (8.5-10.1) L 09/01/18 18:17 POC Ioniz Calcium Eduardo 1.03 mmol/l (1.12-1.32) L 09/01/18 20:23 Magnesium 2.1 mg/dl (1.8-2.4) 09/01/18 18:17 Total Bilirubin 0.4 mg/dl (0.2-1) 09/01/18 18:17 Direct Bilirubin 0.1 mg/dl (0-0.2) 09/01/18 18:17 AST 22 U/L (15-37) 09/01/18 18:17 ALT 21 U/L (12-78) 09/01/18 18:17 Alkaline Phosphatase 86 U/L (45-117) 09/01/18 18:17 Troponin I < 0.015 ng/ml (0-0.045) 09/01/18 18:17 NT-Pro-B Natriuret Pep 935 pg/ml (0-900) H 09/01/18 18:17 Total Protein 7.8 gm/dl (6.4-8.2) 09/01/18 18:17 Albumin 3.5 gm/dl (3.4-5.0) 09/01/18 18:17 Lipase 109 U/L (73-393) 09/01/18 18:17 Diagnostic Findings Imaging included femur x-ray, thoracic spine x-ray, cervical spine CT, chest x- ray, head CT, pelvic x-ray, abdomen and pelvis CTnegative for acute findings Supervising Physician Co-Signing Physician Notes Attending addendum: I have physically seen this patient, have supervised the medical residents activities, and agree with the H&P unless as otherwise noted. Assessment and Plan: Coagulopathy/supratherapeutic INR- INR greater than 10.4. Had received vitamin K 5 mg IV by ED staff, at which time they were instructed to give additional 5 mg for total 10. Repeat INR in 6 hours. Serial H&H's. Monitor for bleeding. Hold aspirin and clopidogrel until INR in therapeutic zone and no obvious bleeding. CAD/hypertension/chronic systolic CHF/ischemic cardiomyopathy-- Hold aspirin, clopidogrel and warfarin as noted above. Continue Entresto, spironolactone, amiodarone, carvedilol and atorvastatin. Recent increase in falls/multiple ecchymoses- May benefit from PT OT assessment. Concern regarding risk for subdural in future. Presently living in nursing home setting. Future living arrangements may need to be reassessed if persists. Remainder of orders and notations as noted. Resident Activity Tracking Resident Involvement: Resident Care Provided Care Provided: Adult [facility] (1) Syncope Syncope type: unspecified Qualified Code(s): R55 - Syncope and collapse
[2018-09-01] MEDS ORDERED: OXYCODONE/ACETAMINOPHEN 10-325 TAB ONE (22:43)
[2018-09-01] MEDS ORDERED: CYCLOBENZAPRINE HCL 10 MG TAB PO ONE (22:43)
--- NOTE | 2018-09-01 22:48 | Emergency Department Note ---
Entered by Chaim Quinn acting as a scribe for Ortiz Tran History of Present Illness General Chief complaint: Abnormal Labs/Diagnostic Testing Stated complaint: INR 12- REFERRED Time Seen by Provider: 09/01/18 17:54 Source: patient History of Present Illness Onset (ago): week(s) (3 falls in past week) Location: head (global) Pain Consistency: + other Maximum Pain Intensity: 10 Quality: + other (elevated INR) Associated symptoms: + other (right arm/shoulder pain; three falls over past week); no chest pain The patient is a 57 year old male on Coumadin who presents to the Emergency Room after referral for elevated INR. The patient reports that he has taken his prescribed dose of Coumadin and has not taken any extra. He states that he has fallen three times in the past week, including one this morning when he struck h is head. He reports that shortness of breath with exertion. He notes persistent pain in his right arm and shoulder. He denies chest pain, hematuria, melena, or hematochezia. He received a Tetanus shot a couple of years ago. Home Medications Home Medications Medication Instructions Recorded Confirmed Type aspirin 81 mg PO QAM 03/02/18 09/01/18 History atorvastatin 80 mg PO HS 03/02/18 09/01/18 History azelastine 1 spray INTRANASAL BID PRN 03/02/18 09/01/18 History buspirone 15 mg PO TID 03/02/18 09/01/18 History albuterol sulfate [Ventolin HFA] 2 puff INHALATION Q6H PRN 03/03/18 09/01/18 History clopidogrel 75 mg PO QAM 03/03/18 09/01/18 History cyclobenzaprine 10 mg PO BID PRN 03/03/18 09/01/18 History loratadine [Claritin] 10 mg PO QAM 03/03/18 09/01/18 History melatonin 10 mg PO HS 03/03/18 09/01/18 History multivitamin [Daily Multiple] 1 tab PO QAM 03/03/18 09/01/18 History oxycodone-acetaminophen 1 tab PO Q4H PRN 03/03/18 09/01/18 History pantoprazole 40 mg PO QAM 03/03/18 09/01/18 History polyethylene glycol 3350 [Miralax] 17 g PO DAILY PRN 03/03/18 09/01/18 History quetiapine 200 mg PO HS 03/03/18 09/01/18 History ranitidine HCl 150 mg PO Q12H 03/03/18 09/01/18 History sertraline 150 mg PO QAM 03/03/18 09/01/18 History spironolactone 50 mg PO 1600 03/03/18 09/01/18 History diclofenac sodium [Voltaren] 4 gm TOP QID PRN 03/30/18 09/01/18 History amiodarone 200 mg PO BID #60 tab 04/30/18 09/01/18 Rx acetaminophen [Tylenol Extra 1,000 mg PO Q6H PRN 05/22/18 09/01/18 History Strength] flaxseed oil-omega 3,6,9 1 cap PO 1200 05/22/18 09/01/18 History fluticasone propion-salmeterol 1 puff INHALATION BID 06/22/18 09/01/18 History [Advair Diskus] warfarin [Coumadin] 2 mg PO DAILY #0 tab 06/26/18 09/01/18 Rx Ca carb-Ca gluc-Mg ox-Mg gluco 0 mg PO DAILY 09/01/18 09/01/18 History [Calcium Magnesium] carvedilol [Coreg] 3.125 mg PO BID 09/01/18 09/01/18 History cetirizine [Zyrtec] 10 mg PO DAILY 09/01/18 09/01/18 History coenzyme Q10 [Co Q-10] 200 mg PO DAILY 09/01/18 09/01/18 History digoxin [Digox] 125 mcg PO DAILY 09/01/18 09/01/18 History docusate sodium [Colace] 200 mg PO HS 09/01/18 09/01/18 History ginkgo biloba 120 mg PO DAILY 09/01/18 09/01/18 History ipratropium-albuterol [Combivent 1 puff INHALATION TID 09/01/18 09/01/18 History Respimat] lactobacillus combination no.4 0 mmu cells PO DAILY 09/01/18 09/01/18 History [Probiotic] ondansetron HCl [Zofran] 4 mg PO QID PRN 09/01/18 09/01/18 History saw palmetto 0 mg PO BID 09/01/18 09/01/18 History torsemide 20 mg PO BID 09/01/18 09/01/18 History torsemide [Demadex] 20 mg PO UD 09/01/18 09/01/18 History torsemide [Demadex] 40 mg PO UD 09/01/18 09/01/18 History Allergies Allergy/AdvReac Type Severity Reaction Status Date / Time heparin Allergy Severe SEE COMMENT Verified 09/01/18 20:58 Iodinated Contrast- Oral and Allergy Severe swelling, Verified 09/01/18 20:58 IV Dye hives ibuprofen AdvReac Intermediate nausea Verified 09/01/18 20:58 vomiting Past Med/Surg History Medical History Anxiety (Chronic) Diastolic CHF (Resolved) Hypotension (Resolved) NSTEMI (non-ST elevated myocardial infarction) (Resolved) Systolic CHF (Resolved) CHF (congestive heart failure) (Resolved) Anemia of chronic disease History of venous thromboembolism History of orthostatic hypotension PVD (peripheral vascular disease) Paroxysmal A-fib COPD (chronic obstructive pulmonary disease) Ischemic cardiomyopathy Acid reflux Aneurysm pt reports multiple aneurysms of LLE w/ stents Anxiety Atrial fibrillation COPD (chronic obstructive pulmonary disease) CVA (cerebral vascular accident) no residual effects Cardiac LV ejection fraction <20% Collar bone fracture Compression fracture Congestive heart failure DJD (degenerative joint disease) Hepatitis C History of left heart catheterization x10 per pt Hyperlipidemia Kidney disease DELICIA (obstructive sleep apnea) On Coumadin for atrial fibrillation Pacemaker Rib fractures Weakness Surgical History Status post popliteal-distal bypass surgery H/O rotator cuff surgery right S/P insertion of iliac artery stent Family History Other No significant family history Social History Preferred Language: Macedonian Beliefs That Will Affect Care: None marital status: Single Current Living Situation: Boarding Home Feels Safe at Home: Yes Smoking Status: Former smoker Hx Alcohol Use: No Hx Substance Use: No Review of Systems See HPI for pertinent positives & negatives. and A total of 10 systems reviewed and were otherwise negative Physical Exam Vital Signs Vital Signs - 24 hr 09/01/18 17:49 09/01/18 18:22 09/01/18 19:14 Temperature 36.8 C Temperature Source Oral Sepsis Recent Fever Within 48 Hours No Sepsis New/Unexplained Change in Mental Status No Sepsis Action Taken by Nursing No Action Required Pulse Rate 84 Pulse Rate [Finger] 82 74 Pulse Rhythm [Finger] Regular Pulse Strength [Finger] Normal Respiratory Rate 20 18 20 Respiratory Effort / Characteristics Non-Labored Non-Labored Spontaneous Respiratory Depth Normal Normal Respiratory Pattern Regular Regular Blood Pressure 114/76 Blood Pressure [Right Arm] 107/71 108/81 Blood Pressure Mean 88 Blood Pressure Mean [Right Arm] 83 90 Blood Pressure Position Sitting Blood Pressure Position [Right Arm] Sitting Pulse Oximetry 90 90 93 Oxygen Delivery Method Room Air Room Air Room Air Oxygen Flow Rate 09/01/18 19:46 09/01/18 20:32 09/01/18 21:00 Temperature Temperature Source Sepsis Recent Fever Within 48 Hours Sepsis New/Unexplained Change in Mental Status Sepsis Action Taken by Nursing Pulse Rate Pulse Rate [Finger] 71 73 Pulse Rhythm [Finger] Pulse Strength [Finger] Respiratory Rate 16 13 Respiratory Effort / Characteristics Non-Labored Spontaneous Respiratory Depth Normal Respiratory Pattern Regular Blood Pressure Blood Pressure [Right Arm] 103/57 L 114/73 Blood Pressure Mean Blood Pressure Mean [Right Arm] 72 86 Blood Pressure Position Blood Pressure Position [Right Arm] Sitting Pulse Oximetry 93 97 96 Oxygen Delivery Method Nasal Cannula Room Air Room Air Oxygen Flow Rate 3 GENERAL: He is oriented to person, place, and time. He appears well-developed and well-nourished. He does not appear distressed. HENT: Exam performed. Head: Abrasion on the crown of the head. Right Ear: External ear normal. No mastoid tenderness. Left Ear: External ear normal. No mastoid tenderness. Mouth/Throat: The oropharynx is clear and moist. No trismus in the jaw. No dental abscesses or uvula swelling. No oropharyngeal exudate or tonsillar abscesses. EYES: Conjunctivae and EOM are normal. Pupils are equal, round, and reactive to light. Right eye exhibits no discharge. Left eye exhibits no discharge. No scleral icterus. NECK: Normal range of motion. Neck supple. No JVD present. No spinous process tenderness present. No carotid bruit present. No rigidity. No tracheal deviation and normal range of motion present. No Brudzinski's sign and no Kernig's sign noted. CV: Normal rate, regular rhythm, normal heart sounds and intact distal pulses. There is no peripheral edema. Palpable radial pulses bue. PULM/CHEST: Effort normal and breath sounds normal. No respiratory distress. No stridor. He has no wheezes. He has no rales. Chest Wall: He exhibits no tenderness. ABD: The abdomen is soft. Bowel sounds are normal. He has no distension. No mass is present. There is no tenderness. There is no rebound, no guarding, no Gabriel's sign and no tenderness at McBurney's point. Rovsig negative. MUSC/SKEL: Normal range of motion. Thoracic spine pain on palpation. No cervical spine tenderness. Diffuse ecchymosis over the bilateral upper and lower extremities as well as the anterior trunk. Abrasion of the left anterior mccloud. There is no peripheral edema or deformity. LYMPH: No cervical adenopathy. NEURO: He is alert and oriented to person, place, and time. He has normal strength. No cranial nerve deficit or sensory deficit. Coordination and gait normal. GCS eye subscore is 4. GCS verbal subscore is 5. GCS motor subscore is 6. cerbellar tests wnl. SKIN: Skin is warm and dry. He is not diaphoretic. PSYCH: He has a normal mood and affect. His behavior is normal. Judgment and thought content normal. Course 1801: The patient was evaluated in room C6, and a complete history and physical examination were performed. EMR reviewed. The patient had outpatient labs today that showed INR greater than 10.4, hemoglobin 13.8, and creatinine 1.55. Creatinine is at baseline. He is on Coumadin. 2039: Vital signs stable. Imaging shows no acute traumatic injury. Patient's INR is greater than 10.4. Hemoglobin is stable. ProBNP is 935. Patient will be treated with vitamin K orally and admitted to the hospitalist service due to his recurrent falls, elevated INR, and potential for falling and having an acute bleed. I consulted Dr. Mathew - [facility] Hospitalist. The patient will be ree valuated for hospitalization. Administered Medications Sodium Chloride (Nss) 500 mls @ 125 mls/hr IV .Q4H DRAKE Stop: 10/01/18 17:59 Last Admin: 09/01/18 18:30 Dose: 125 mls/hr Documented by: [id number] Sodium Chloride (Nss) 500 mls @ 125 mls/hr IV .Q4H DRAKE Stop: 10/01/18 18:14 Last Infusion: 09/01/18 19:17 Dose: 0 mls/hr Documented by: [id number] Admin: 09/01/18 19:17 Dose: 125 mls/hr Documented by: [id number] Discontinued Medications Cyclobenzaprine HCl (Flexeril) Confirm Administered Dose 10 mg PO .STK-MED ONE Stop: 09/01/18 22:44 Last Admin: 09/01/18 22:45 Dose: 10 mg Documented by: [id number] Hydromorphone HCl (Dilaudid) 1 mg IV NOW STA Stop: 09/01/18 18:11 Last Admin: 09/01/18 18:30 Dose: 1 mg Documented by: [id number] Hydromorphone HCl (Dilaudid) 1 mg IV NOW STA Stop: 09/01/18 19:26 Last Admin: 09/01/18 19:46 Dose: 1 mg Documented by: [id number] Hydromorphone HCl (Dilaudid) 1 mg IV NOW STA Stop: 09/01/18 20:27 Last Admin: 09/01/18 20:32 Dose: 1 mg Documented by: [id number] Ondansetron HCl (Zofran) 4 mg IV NOW STA Stop: 09/01/18 18:11 Last Admin: 09/01/18 18:30 Dose: 4 mg Documented by: [id number] Oxycodone/Acetaminophen (Percocet 10/325mg) Confirm Administered Dose 1 tab .ROUTE .STK-MED ONE Stop: 09/01/18 22:44 Last Admin: 09/01/18 22:46 Dose: 1 tab Documented by: [id number] Phytonadione (Mephyton) 5 mg PO NOW STA Stop: 09/01/18 19:26 Last Admin: 09/01/18 19:46 Dose: 5 mg Documented by: [id number] Phytonadione (Mephyton) 5 mg PO NOW STA Stop: 09/01/18 20:47 Last Admin: 09/01/18 21:12 Dose: 5 mg Documented by: [id number] Medical Decision Making Medical Records Attestation: I reviewed the patient's medical records. Home Medications Current Medication List: was personally reviewed by me Laboratory Data Attestation: I reviewed the patient's lab results. Result diagrams: 09/01/18 18:17 09/01/18 18:17 Lab Results 09/01/18 09/01/18 09/01/18 Range/Units 18:17 18:17 18:17 WBC 7.71 (4.8-10.8) K/uL RBC 3.75 L (4.7-6.1) M/uL Hgb 12.8 L (14.0-18.0) g/dL POC Hgb (14.0-18.0) g/dl Hct 38.2 L (42-52) % POC Hct (42-52) % MCV 101.9 H (80-100) fL MCH 34.1 H (25-34) pg MCHC 33.5 (32-36) g/dL RDW Std Deviation 63.5 H (36.4-46.3) fL RDW Coeff of Julian 17.0 H (11.5-14.5) % Plt Count 151 (130-400) K/uL MPV 10.4 (7.4-10.4) fL Immature Gran % (Auto) 0.8 % Neut % (Auto) 62.6 % Lymph % (Auto) 15.8 % Mohave % (Auto) 18.0 % Eos % (Auto) 2.5 % Baso % (Auto) 0.3 % Immature Gran # (Auto) 0.06 H (0.00-0.02) K/uL Neut # (Auto) 4.83 (1.4-6.5) K/uL Lymph # (Auto) 1.22 (1.2-3.4) K/uL Moh[place] # (Auto) 1.39 H (0.11-0.59) K/uL Eos # (Auto) 0.19 (0-0.5) K/uL Baso # (Auto) 0.02 (0-0.2) K/uL PT > 90.0 H (9.0-12.0) Seconds INR > 10.4 H* (0.9-1.1) APTT 105.0 H* (21.0-31.0) Seconds PTT Ratio 3.9 VBG pH (7.36-7.41) VBG pCO2 (38-50) mmHg VBG pO2 mmHg VBG HCO3 mmol/L VBG O2 Saturation % VBG Base Excess mEq/L Barometric Pressure mm/Hg POC Sodium (135-144) mEq/L Sodium 132 L (136-145) mmol/L POC Potassium (3.3-5.0) mEq/L Potassium 3.9 (3.5-5.1) mmol/L POC Chloride (101-112) mEq/L Chloride 97 L (98-107) mmol/L Carbon Dioxide 32 (21-32) mmol/L POC Total CO2 (24-31) mEq/l Anion Gap 3.0 (3-11) POC Anion Gap (16-25) mmol/L POC BUN (7-18) mg/dl BUN 18 (7-18) mg/dl Creatinine 1.43 H (0.6-1.4) mg/dl POC Creatinine (0.6-1.3) mg/dl Est Cr Clr Drug Dosing 73.5 ml/min Est GFR ( Amer) 61.7 Est GFR (Non-Af Amer) 53.2 BUN/Creatinine Ratio 12.5 (10-20) Glucose 102 H (70-99) mg/dl POC Glucose (other) (70-99) mg/dl Calcium 8.2 L (8.5-10.1) mg/dl POC Ioniz Calcium Eduardo (1.12-1.32) mmol/l Magnesium 2.1 (1.8-2.4) mg/dl Total Bilirubin 0.4 (0.2-1) mg/dl Direct Bilirubin 0.1 (0-0.2) mg/dl AST 22 (15-37) U/L ALT 21 (12-78) U/L Alkaline Phosphatase 86 (45-117) U/L Troponin I < 0.015 (0-0.045) ng/ml NT-Pro-B Natriuret Pep 935 H (0-900) pg/ml Total Protein 7.8 (6.4-8.2) gm/dl Albumin 3.5 (3.4-5.0) gm/dl Lipase 109 (73-393) U/L 09/01/18 09/01/18 09/01/18 Range/Units 18:17 18:30 20:23 WBC (4.8-10.8) K/uL RBC (4.7-6.1) M/uL Hgb (14.0-18.0) g/dL POC Hgb 11.9 L (14.0-18.0) g/dl Hct (42-52) % POC Hct 35 L (42-52) % MCV (80-100) fL MCH (25-34) pg MCHC (32-36) g/dL RDW Std Deviation (36.4-46.3) fL RDW Coeff of Julian (11.5-14.5) % Plt Count (130-400) K/uL MPV (7.4-10.4) fL Immature Gran % (Auto) % Neut % (Auto) % Lymph % (Auto) % Moh[place] % (Auto) % Eos % (Auto) % Baso % (Auto) % Immature Gran # (Auto) (0.00-0.02) K/uL Neut # (Auto) (1.4-6.5) K/uL Lymph # (Auto) (1.2-3.4) K/uL Moh[place] # (Auto) (0.11-0.59) K/uL Eos # (Auto) (0-0.5) K/uL Baso # (Auto) (0-0.2) K/uL PT (9.0-12.0) Seconds INR (0.9-1.1) APTT (21.0-31.0) Seconds PTT Ratio VBG pH 7.43 H (7.36-7.41) VBG pCO2 49 (38-50) mmHg VBG pO2 40 mmHg VBG HCO3 32 mmol/L VBG O2 Saturation 75.9 % VBG Base Excess 6.5 mEq/L Barometric Pressure 731.6 mm/Hg POC Sodium 136 (135-144) mEq/L Sodium (136-145) mmol/L POC Potassium 4.0 (3.3-5.0) mEq/L Potassium (3.5-5.1) mmol/L POC Chloride 92 L (101-112) mEq/L Chloride (98-107) mmol/L Carbon Dioxide (21-32) mmol/L POC Total CO2 32 H (24-31) mEq/l Anion Gap (3-11) POC Anion Gap 17.0 (16-25) mmol/L POC BUN 17 (7-18) mg/dl BUN (7-18) mg/dl Creatinine (0.6-1.4) mg/dl POC Creatinine 1.4 H (0.6-1.3) mg/dl Est Cr Clr Drug Dosing ml/min Est GFR ( Amer) Est GFR (Non-Af Amer) BUN/Creatinine Ratio (10-20) Glucose (70-99) mg/dl POC Glucose (other) 116 H (70-99) mg/dl Calcium (8.5-10.1) mg/dl POC Ioniz Calcium Eduardo 1.03 L (1.12-1.32) mmol/l Magnesium Cancelled (1.8-2.4) mg/dl Total Bilirubin (0.2-1) mg/dl Direct Bilirubin (0-0.2) mg/dl AST (15-37) U/L ALT (12-78) U/L Alkaline Phosphatase (45-117) U/L Troponin I (0-0.045) ng/ml NT-Pro-B Natriuret Pep Cancelled (0-900) pg/ml Total Protein (6.4-8.2) gm/dl Albumin (3.4-5.0) gm/dl Lipase (73-393) U/L Imaging Data Radiologist's Impression: Radiology results as stated below per my review and the radiologist's interpretation: CT SCAN OF THE ABDOMEN AND PELVIS WITHOUT IV CONTRAST CLINICAL HISTORY: Fall. Right-sided abdominal pain. COMPARISON STUDY: Abdominal CT dated 10/01/2017. TECHNIQUE: CT scan of the abdomen and pelvis is performed from the lung bases to the proximal femora. Images are reviewed in the axial, sagittal, and coronal planes. IV contrast was not administered for this examination as per the referring clinician. Note that the examination was performed in significantly suboptimal fashion without IV contrast. A dose lowering technique was utilized adhering to the principles of ALARA. CT DOSE: 2350.21 mGy.cm FINDINGS: Lung bases: The heart is mildly enlarged and without pericardial effusion. The coronary arteries are densely calcified. Pacemaker leads are noted. Emphysema is suspected. There is elevation of the left hemidiaphragm with patchy dependent bibasilar airspace consolidation. No pneumothorax is seen in either lung base. No pleural effusion is identified. There is a small hiatal hernia. Liver: The unenhanced liver is normal in size, contour, and attenuation. There is no intrahepatic biliary ductal dilatation. Gallbladder: Unremarkable. Spleen: Normal in size and attenuation. Pancreas: The unenhanced pancreas is moderately atrophic and grossly unremarkable. Adrenal glands: Unremarkable. Kidneys: The unenhanced kidneys history cortical atrophy and are without hydronephrosis. There is a punctate nonobstructing calculus in the lower pole of the left kidney. There is no evidence of contour deforming renal mass lesion. Abdominal vasculature: There is advanced atherosclerotic calcification and mild ectasia of the abdominal aorta. There are bilateral common iliac artery aneurysms, measuring up to 3.3 cm on the right and 3.3 cm on the left. A right internal iliac artery aneurysm measures up to 2.2 cm, and a left internal iliac artery aneurysm measures up to 1.7 cm. Bowel: The small bowel and colon are normal in course and caliber. The appendix is well-visualized and normal. Peritoneum: There is no intraperitoneal free air or abdominal ascites. There is a small fat-containing umbilical hernia. Lymphadenopathy: None. Pelvic viscera: The bladder is normal as visualized. The prostate gland is diminutive and heterogeneous. Skeletal structures: The skeletal structures are osteopenic. No lytic or blastic lesions are seen. There are chronic compression deformities of T10, T11, T12, L1, L2, L4, and L5. These are unchanged from 10/01/2017. There are healed right- sided rib fractures. IMPRESSION: 1. Significantly suboptimal examination without IV contrast. 2. There is no evidence of solid organ injury in the abdomen or pelvis on this unenhanced examination. 3. There are bilateral common iliac artery aneurysms as well as bilateral internal iliac artery aneurysms. These are similar in appearance to previous. 4. Cardiomegaly and cardiac pacemaker. 5. Dependent airspace consolidation is seen at both lung bases. This could represent atelectasis and/or an infectious/inflammatory pneumonitis. Clinical correlation will be required. 6. Additional findings as above. Electronically signed by: Jacky Zhou M.D. 09/01/2018 7:[address] SCAN OF THE CERVICAL SPINE CLINICAL HISTORY: Fall. COMPARISON STUDY: CT of the cervical spine dated 06/22/2018. TECHNIQUE: CT scan of the cervical spine is performed from the skull base to the upper thoracic spine. Images are reviewed in the axial, sagittal, and coronal planes. IV contrast was not administered for this examination. A dose lowering technique was utilized adhering to the principles of ALARA. FINDINGS: Skeletal structures: The skeletal structures are well mineralized. There is no evidence of fracture or subluxation involving the cervical spine. Vertebral body height and alignment are maintained. There is straightening of the cervical lordosis. Small anterior osteophytes are seen throughout. The odontoid process and lateral masses are intact. The atlantoaxial articulation is preserved noting mild productive degenerative change. The spinous processes appear intact. There is mild to moderate multilevel cervical spondylosis. Uncovertebral and facet arthropathy contribute to neural foraminal stenosis at several levels. This is greatest in the lower cervical spine. Intervertebral discs: Mild disc space narrowing is seen at C6-C7 with associated endplate sclerosis. The remaining disc spaces are maintained. Central canal: The posterior disc osteophyte complex at C6-C7 may contribute to mild acquired compromise of the central canal. Soft tissues: The prevertebral and paraspinous soft tissues are within normal limits. There is atherosclerotic calcification of the carotid bulbs. Pacemaker leads are noted in the left axilla. Calvarium: The visualized calvarium at the skull base appears intact. Brain parenchyma: Partially visualized brain parenchyma the skull base is within normal limits. Sinuses and mastoids: The visualized paranasal sinuses are clear. The mastoid air cells are well pneumatized. Lung apices: Clear as visualized. IMPRESSION: There is no evidence of fracture or subluxation involving the cervical spine. Electronically signed by: Jacky Zhou M.D. 09/01/2018 6:57 PM SINGLE VIEW CHEST CLINICAL HISTORY: Fall. FINDINGS: An AP, portable, upright chest radiograph is compared to study dated 06/22/2018 and correlated with chest CT dated 09/13/2017. The examination is degraded by portable technique and patient rotation. A 3-lead cardiac AICD is unchanged in position and partially obscures the left lower chest. The heart is enlarged and there is atherosclerotic calcification of the thoracic aorta. The pulmonary vasculature is noncongested. There is chronic elevation of the left hemidiaphragm with associated left basilar opacities. No large pleural effusion or pneumothorax is seen. The skeletal structures are osteopenic. There are numerous healed right-sided rib fractures. IMPRESSION: 1. Cardiomegaly and AICD without radiographic evidence of congestive failure. 2. There is chronic elevation of the left hemidiaphragm and bibasilar airspace opacities. This could represent atelectasis and/or an infectious/inflammatory pneumonitis. Clinical correlation will be required. Electronically signed by: Jacky Zhou M.D. 09/01/2018 7:15 PM SINGLE VIEW PELVIS; 3 VIEWS RIGHT FEMUR CLINICAL HISTORY: Fall. Right hip and leg pain. FINDINGS: An AP view of the pelvis with AP, frog-leg, and crosstable lateral views of the right femur are obtained. Correlation is made with pelvic CT dated 10/01/2017. The skeletal structures are osteopenic. There is no radiographic evidence of fracture involving the hips or bony pelvis. There is no radiographic evidence of femoral fracture. Mild/moderate arthritic change and joint space narrowing is seen in the hips. The sacroiliac joints are preserved. The right knee joint is grossly maintained. The overlying soft tissues are normal in appearance. There is advanced atherosclerotic calcification of the right femoral artery with a large stent in place. Surgical clips are noted in the left groin. There is no bowel obstruction. Bilateral iliac artery aneurysms are noted. IMPRESSION: 1. There is no radiographic evidence of fracture involving the hips or pelvis. 2. There is no radiographic evidence of right femoral fracture. 3. Additional findings as above. Electronically signed by: Jacky Zhou M.D. 09/01/2018 7:[address] SCAN OF THE BRAIN WITHOUT IV CONTRAST CLINICAL HISTORY: Fall. COMPARISON STUDY: CT of the brain dated 06/22/2018. TECHNIQUE: Unenhanced axial CT scan of the brain is performed from the vertex to the skull base. A dose lowering technique was utilized adhering to the principles of ALARA. FINDINGS: Brain parenchyma: The brain parenchyma is normal in appearance. There is no hemorrhage, mass effect, or evidence of acute territorial ischemia by CT criteria. Vargas-white matter differentiation is preserved. No extra-axial fluid collection is seen. Ventricles, sulci, cisterns: Normal in configuration. Intracranial vasculature: There is atherosclerotic calcification of the cavernous carotid arteries. Calvarium: Unremarkable. Sinuses and mastoids: The visualized paranasal sinuses are clear. The mastoid air cells are well pneumatized. Orbits: The bony orbits are grossly intact. IMPRESSION: No acute intracranial abnormality. Electronically signed by: Jacky Zhou M.D. 09/01/2018 6:59 PM THORACIC SPINE 3 VIEWS CLINICAL HISTORY: Fall. FINDINGS: AP, lateral, and swimmer's views of the thoracic spine are correlated with chest CT dated 09/13/2017. The skeletal structures are osteopenic. There is no radiographic evidence of acute fracture or malalignment. Numerous chronic thoracolumbar compression deformities are similar to previous. Anterior osteophytes are seen throughout. The transverse processes and pedicles are grossly intact as seen on the frontal view. The disc spaces appear preserved. The heart is enlarged and AICD leads are observed. There is chronic elevation of left hemidiaphragm and left basilar opacities. IMPRESSION: 1. There is no radiographic evidence of acute fracture or malalignment involving the thoracic spine. 2. Osteopenia, degenerative change, and numerous chronic thoracolumbar compression deformities as above. Electronically signed by: Jacky Zhou M.D. 09/01/2018 7:18 PM ECG Data Attestation: I personally reviewed and interpreted this ECG as follows: Indication: SOB/dyspnea Rate (beats per minute): 83 Rhythm: sinus rhythm Findings: + other (QRS is 134; [place] and QTc intervals within normal limits. Baseline artifact due to patient movement. ); no ST depression and no ST elevation Comparison ECG Date: from (06/22/18) Change: no significant change Blood Pressure Blood Pressure Findings: Low blood pressure Blood Pressure Disposition: further management by hospitalist Head Trauma GCS Score: 15 MDM Narrative 1802: The patient was evaluated in room C6, and a complete history and physical examination were performed. EMR reviewed. The patient had outpatient labs today that showed INR greater than 10.4, hemoglobin 13.8, and creatinine 1.55. Creatinine is at baseline. He is on Coumadin. 2039: Vital signs stable. Imaging shows no acute traumatic injury. Patient's INR is greater than 10.4. Hemoglobin is stable. ProBNP is 935. Patient will be treated with vitamin K orally and admitted to the hospitalist service due to his recurrent falls, elevated INR, and potential for falling and having an acute bleed. I consulted Dr. Mathew - [facility] Hospitalist. The patient will be reevaluated for hospitalization. Impression & Plan Recurrent falls, Elevated INR Discharge Plan Visit Data Chief Complaint: Abnormal Labs/Diagnostic Testing Stated Complaint: INR 12- REFERRED ED Provider: Ortiz Tran Discharge Problem: Recurrent falls, Elevated INR Patient Disposition: Being Evaluated by Hospitalist Forms Stand Alone Forms: [facility] Prescriptions Prescriptions: No Action atorvastatin 80 mg tablet 80 mg PO HS RF: 0 aspirin 81 mg Tablet,Delayed Release (Dr/Ec) 81 mg PO QAM RF: 0 azelastine 137 mcg (0.1 %) aerosol,spray 1 spray Intranasal BID PRN (Reason: ALLERGIES) RF: 0 buspirone 15 mg tablet 15 mg PO TID RF: 0 multivitamin [Daily Multiple] Tablet 1 tab PO QAM RF: 0 cyclobenzaprine 10 mg Tablet 10 mg PO BID PRN (Reason: Muscle Spasm) RF: 0 polyethylene glycol 3350 [Miralax] 17 gram Powder In Packet 17 g PO DAILY PRN (Reason: Constipation) RF: 0 sertraline 100 mg tablet 150 mg PO QAM RF: 0 clopidogrel 75 mg tablet 75 mg PO QAM RF: 0 quetiapine 100 mg tablet 200 mg PO HS RF: 0 oxycodone-acetaminophen 10-325 mg tablet 1 tab PO Q4H PRN (Reason: Pain) RF: 0 pantoprazole 40 mg tablet,delayed release (DR/EC) 40 mg PO QAM RF: 0 ranitidine HCl 150 mg tablet 150 mg PO Q12H RF: 0 loratadine [Claritin] 10 mg Tablet 10 mg PO QAM RF: 0 melatonin 10 mg Tablet 10 mg PO HS RF: 0 spironolactone 25 mg tablet 50 mg PO 1600 RF: 0 albuterol sulfate [Ventolin HFA] 90 mcg/actuation Hfa Aerosol Inhaler 2 puff INHALATION Q6H PRN (Reason: Shortness Of Breath) RF: 0 diclofenac sodium [Voltaren] 1 % gel 4 gm TOP QID PRN (Reason: Pain) RF: 0 amiodarone 200 mg Tablet 200 mg PO BID Qty: 60 RF: 0 acetaminophen [Tylenol Extra Strength] 500 mg Tablet 1,000 mg PO Q6H PRN (Reason: Pain) RF: 0 flaxseed oil-omega 3,6,9 1,300 mg-845 mg -117 mg-117 mg Capsule 1 cap PO 1200 RF: 0 fluticasone propion-salmeterol [Advair Diskus] 250-50 mcg/dose blister with device 1 puff Inhalation BID RF: 0 warfarin [Coumadin] 2 mg Tablet 2 mg PO DAILY Qty: 0 RF: 0 ondansetron HCl [Zofran] 4 mg Tablet 4 mg PO QID PRN (Reason: Nausea) RF: 0 docusate sodium [Colace] 100 mg Capsule 200 mg PO HS RF: 0 ginkgo biloba 120 mg Tablet 120 mg PO DAILY RF: 0 coenzyme Q10 [Co Q-10] 200 mg Capsule 200 mg PO DAILY RF: 0 Calcium Magnesium 500 mg calcium -250 mg Tablet PO DAILY RF: 0 Combivent Respimat 20-100 mcg/actuation Mist 1 puff INHALATION TID RF: 0 torsemide [Demadex] 20 mg Tablet 20 mg PO UD RF: 0 torsemide [Demadex] 20 mg tablet 40 mg PO UD RF: 0 saw palmetto 160 mg Capsule PO BID RF: 0 Zyrtec 10 mg Capsule 10 mg PO DAILY RF: 0 Probiotic 3 billion cell Capsule PO DAILY RF: 0 torsemide 20 mg tablet 20 mg PO BID RF: 0 carvedilol [Coreg] 3.125 mg tablet 3.125 mg PO BID RF: 0 digoxin [Digox] 125 mcg tablet 125 mcg PO DAILY RF: 0 Referrals Referrals: Hilda Marie MD [Primary Care Provider] - The scribe's documentation has been prepared under my direction and personally reviewed by me in its entirety. I confirm that the note above accurately reflects all work, treatment, procedures, and medical decision making performed by me.
[2018-09-01] MEDS ORDERED: ACETAMINOPHEN 325 MG TAB PO PRN (23:36)
[2018-09-01] MEDS ORDERED: MAGNESIUM HYDROXIDE SUSP 30 ML UDC PO PRN (23:36)
[2018-09-01] MEDS ORDERED: ALUMINUM/MAGNESIUM SUSP 30 ML UDC PO PRN (23:36)
[2018-09-01] MEDS ORDERED: ONDANSETRON INJ 2 MG/ML 2 ML VIAL IV PRN (23:36)
[2018-09-01] MEDS ORDERED: ACETAMINOPHEN 1,000 MG/100 ML VIAL IV PRN (23:36)
[2018-09-01] MEDS ORDERED: POLYETHYLENE (MIRALAX) 17 GM PACK PO PRN (23:36)
[2018-09-01] MEDS ORDERED: ALBUTEROL 0.083% NEBU SOLN 3 ML VIAL NEB PRN (23:36)
[2018-09-02] MEDS: ALBUT/IPRATROP 3MG/0.5MG NEB 3 ML VIAL NEB SCH ×7 (00:43→23:21)
[2018-09-02] MEDS: CARVEDILOL 3.125 MG TAB PO SCH ×3 (00:44→21:09)
[2018-09-02] MEDS: AMIODARONE 200 MG TAB PO SCH ×3 (00:44→21:08)
[2018-09-02] MEDS: FLUTICASONE/SALMETEROL 250/50 (ADVAIR) 14 PUFF/1 INHALER INH SCH ×3 (00:44→21:09)
[2018-09-02] MEDS: BusPIRone 15 MG TAB PO SCH ×4 (00:45→21:08)
[2018-09-02] MEDS: QUETIAPINE FUMARATE 100 MG TABLET PO SCH ×2 (00:46→21:08)
[2018-09-02 02:03] LABS: Prothrombin Time 81.4 Seconds (9.0-12.0)
[2018-09-02 02:16] LABS: INR 9.3 (0.9-1.1)
[2018-09-02 04:46] LABS: Appearance Urine Clear (Clear); Bilirubin Urine Negative (Negative); Blood Urine Negative (Negative); Color Urine Yellow; Glucose Urine UA Negative (Negative); Ketones Urine Negative (Negative); Leukocyte Esterase Urine Negative (Negative); Nitrite Urine Negative (Negative); Protein Urine Negative (Negative); Specific Gravity Urine 1.012 (1.000-1.030); Urobilinogen Urine Negative (Negative); pH Urine 6.5 (4.5-7.5)
[2018-09-02 07:25] LABS: Basophils # (auto) 0.01 K/uL (0-0.2); Basophils % (auto) 0.1 %; Eosinophils # (auto) 0.13 K/uL (0-0.5); Eosinophils % (auto) 1.7 %; Hematocrit (blood only) 34.2 % (42-52); Immature Granulocytes # (auto) 0.05 K/uL (0.00-0.02); Immature Granulocytes % (auto) 0.6 %; Lymphocytes # (auto) 1.11 K/uL (1.2-3.4); Lymphocytes % (auto) 14.2 %; Mean Corpuscular Hgb Conc 32.2 g/dL (32-36); Mean Corpuscular Volume 101.2 fL (80-100); Mean Platelet Volume 10.1 fL (7.4-10.4); Monocytes # (auto) 1.25 K/uL (0.11-0.59); Monocytes % (auto) 15.9 %; Neutrophils # (auto) 5.29 K/uL (1.4-6.5); Neutrophils % (auto) 67.5 %; Platelet Count 122 K/uL (130-400); RDW Coefficient of Variation 17.1 % (11.5-14.5); RDW Standard Deviation 62.4 fL (36.4-46.3); Red Blood Count 3.38 M/uL (4.7-6.1); White Blood Count 7.84 K/uL (4.8-10.8)
[2018-09-02 07:44] LABS: BUN Creatinine Ratio 13.2 (10-20); Calcium 7.8 mg/dl (8.5-10.1); Creatinine Clr Calc Pharmacy 91.2 ml/min; Est GFR (Non-African American) 70.8; Potassium 3.9 mmol/L (3.5-5.1)
[2018-09-02 07:51] LABS: INR 4.6 (0.9-1.1); Prothrombin Time 42.3 Seconds (9.0-12.0)
[2018-09-02] MEDS: OXYCODONE/ACETAMINOPHEN 10-325 TAB PO PRN ×4 (08:48→21:05)
[2018-09-02] MEDS: LORATADINE 10 MG TAB PO SCH (09:00)
[2018-09-02] MEDS: PANTOprazole 40 MG TAB PO SCH (09:03)
[2018-09-02] MEDS: SERTRALINE HCL 100 MG TABLET PO SCH (09:04)
[2018-09-02] MEDS: POLYETHYLENE (MIRALAX) 17 GM PACK PO PRN (09:06)
[2018-09-02] MEDS: CETIRIZINE HCL 10 MG TABLET PO SCH (09:06)
[2018-09-02] MEDS: CYCLOBENZAPRINE HCL 10 MG TAB PO PRN ×2 (11:05→21:47)
--- NOTE | 2018-09-02 15:15 | Hospitalist Progress Note ---
Date of Service September 02, 2018 Assessment & Plan (1) Elevated INR: Patient given 10 of vitamin K in the ED. - Hold warfarin, clopidogrel, aspirin Restart aspirin & clopidogrel as soon as INR normalizes Falls precaution - Trending hemoglobin to monitor for any internal bleeding (2) Recurrent falls: Fell at home onto right hip. No fracture seen on x-rays on 09/01. - Orthostatics; monitor pain (3) Syncope: Was recently seen at the beginning of June for syncopal episodes no med changes were deemed necessary at that time. The patient did not have orthostatic changes at that time. Continue to follow blood pressures, orthostatic blood pressures ordered Falls precautions (4) Atrial fibrillation: (5) Chronic systolic (congestive) heart failure: Ischemic cardiomyopathy EF of 20%. No signs of volume overload at this time & BNP was only 935. Continue Entresto, spironolactone, amiodarone, carvedilol, atorvastatin Holding aspirin and clopidogrel brieflyrestart as INR normalizes, may coincide with daily dosing anyways - Discussed with Nikhilmagalis - Home dosing is torsemide 20mg PO two times one day and 40mg PO in AM, 20mg PO in HS every other day (6) COPD (chronic obstructive pulmonary disease): No shortness of breath or wheezing on exam. Holding home inhalers, replacing with nebulized treatments while in the inpatient (7) Chronic low back pain: Stable. Continue cyclobenzaprine, oxycodone (8) Depression: No concern for current depressive episode. Continue sertraline, Seroquel (9) Coronary artery disease: No concern for acute coronary syndrome. - Continue meds as above (10) Hypertension: On significant regimen for his heart failure. - Monitor BP (11) DVT prophylaxis: SCDs - Holding any anticoagulation for now; see above. Subjective 57yo M w/ hx of systolic CHF who presents with elevated INR. Today he still has significant pain in the legs and hip from bruising. He is feeling well otherwise. Reports no fevers/chills, chest pain, shortness of breath, abdominal pain, nausea, or vomiting. Review of Systems Constitutional: no fever, no chills and no sweats Eyes: no diplopia Ear, Nose, Mouth, Throat: no ear trauma, no nasal discharge and no dental pain Respiratory: no cough, no chest congestion and no dyspnea Cardiovascular: no chest pain, no dyspnea on exertion, no palpitations and no syncope Gastrointestinal: no abdominal pain, no belching, no constipation, no diarrhea/loose stools, no blood in stools and no melena Musculoskeletal: + joint pain (Right hip); no back pain and no muscle weakness Integumentary: no rash, no skin ulcer and no erythema Neurologic: no generalized weakness, no loss of sensation, no numbness and no paresthesia Psychiatric: no depression and no anxiety Endocrine: no fatigue, no polydipsia and no polyphagia Physical Exam Constitutional: WD/WN, vitals as above Eyes: PERRL, conjunctivae normal, anicteric sclerae ENMT: external ear and nose normal, oropharynx normal Neck: trachea midline, no thyromegaly Respiratory: normal respiratory effort, lungs clear to auscultation Cardiovascular: RRR, no murmur, no edema Gastrointestinal (Abdomen): normal bowel sounds, soft, nontender, no hepatosplenomegaly Musculoskeletal: no cyanosis or clubbing, extremities motor strength 5/5 Skin: no rashes, warm and dry Neurologic: PERRL, EOMI, accommodation nl, no face palsy, no dysarthria Psychiatric: A+Ox3, euthymic affect Results & Data Vital Signs (Past 12 Hours) Vital Signs Temp Pulse Pulse Resp BP Pulse Ox 09/02/18 14:50 79 09/02/18 11:35 36.6 C 80 18 97/58 L 91 09/02/18 11:21 83 18 94 09/02/18 07:50 36.9 C 81 20 87/67 L 91 09/02/18 07:42 78 09/02/18 07:21 80 18 93 09/02/18 04:28 36.6 C 77 17 92/56 L 91 (1) Syncope Syncope type: unspecified Qualified Code(s): R55 - Syncope and collapse
[2018-09-02] MEDS: SPIRONOLACTONE 25 MG TAB PO SCH (17:03)
[2018-09-02] MEDS: DIGOXIN 0.125 MG TAB PO SCH (17:05)
[2018-09-02] MEDS: DOCUSATE SODIUM 100 MG CAP PO SCH (21:07)
[2018-09-02] MEDS: ATORVASTATIN 40 MG TAB PO SCH (21:08)
[2018-09-03] MEDS: ALBUT/IPRATROP 3MG/0.5MG NEB 3 ML VIAL NEB SCH ×6 (03:44→23:03)
[2018-09-03] MEDS: TORSEMIDE 10 MG TAB PO SCH ×2 (06:22→12:23)
[2018-09-03] MEDS: OXYCODONE/ACETAMINOPHEN 10-325 TAB PO PRN ×5 (06:22→23:13)
[2018-09-03] MEDS: POLYETHYLENE (MIRALAX) 17 GM PACK PO PRN (06:22)
[2018-09-03 06:39] LABS: Hematocrit (blood only) 32.7 % (42-52); Hemoglobin 10.5 g/dL (14.0-18.0); Mean Corpuscular Hgb Conc 32.1 g/dL (32-36); Mean Corpuscular Volume 102.2 fL (80-100); Mean Platelet Volume 10.2 fL (7.4-10.4); Platelet Count 128 K/uL (130-400); RDW Coefficient of Variation 17.1 % (11.5-14.5); RDW Standard Deviation 63.3 fL (36.4-46.3); White Blood Count 6.78 K/uL (4.8-10.8)
[2018-09-03 06:55] LABS: INR 1.5 (0.9-1.1); Prothrombin Time 14.7 Seconds (9.0-12.0)
[2018-09-03 07:12] LABS: BUN Creatinine Ratio 12.4 (10-20); Calcium 8.4 mg/dl (8.5-10.1); Creatinine Clr Calc Pharmacy 97.2 ml/min; Est GFR (African American) 88.6; Est GFR (Non-African American) 76.4; Potassium 4.2 mmol/L (3.5-5.1)
[2018-09-03] MEDS: CYCLOBENZAPRINE HCL 10 MG TAB PO PRN ×2 (08:04→21:02)
[2018-09-03] MEDS: CARVEDILOL 3.125 MG TAB PO SCH ×2 (08:04→21:02)
[2018-09-03] MEDS: CETIRIZINE HCL 10 MG TABLET PO SCH (08:04)
[2018-09-03] MEDS: SERTRALINE HCL 100 MG TABLET PO SCH (08:05)
[2018-09-03] MEDS: PANTOprazole 40 MG TAB PO SCH (08:05)
[2018-09-03] MEDS: AMIODARONE 200 MG TAB PO SCH ×2 (08:05→21:02)
[2018-09-03] MEDS: FLUTICASONE/SALMETEROL 250/50 (ADVAIR) 14 PUFF/1 INHALER INH SCH ×2 (08:05→21:01)
[2018-09-03] MEDS: BusPIRone 15 MG TAB PO SCH ×3 (08:05→21:02)
[2018-09-03] MEDS: LORATADINE 10 MG TAB PO SCH (08:05)
--- NOTE | 2018-09-03 14:38 | Hospitalist Progress Note ---
Date of Service September 03, 2018 Assessment & Plan (1) Elevated INR: Patient given 10 of vitamin K in the ED. - Held warfarin, clopidogrel, aspirin on admission Restarted aspirin & clopidogrel on 09/03 Falls precaution - Trending hemoglobin to monitor for any internal bleeding - Hgb stable at 10.5 as of 09/03 (2) Recurrent falls: Fell at home onto right hip. No fracture seen on x-rays on 09/01. - Orthostatics; monitor pain (3) Syncope: Was recently seen at the beginning of June for syncopal episodes no med changes were deemed necessary at that time. The patient did not have orthostatic changes at that time. Continue to follow blood pressures Falls precautions (4) Atrial fibrillation: (5) Chronic systolic (congestive) heart failure: Ischemic cardiomyopathy EF of 20%. No signs of volume overload at this time, & BNP was only 935 on admission. Continue Entresto, spironolactone, amiodarone, carvedilol, atorvastatin - Discussed with Ms. Spence - Home dosing is torsemide 20mg PO two times one day and 40mg PO in AM, 20mg PO in HS every other day (6) COPD (chronic obstructive pulmonary disease): No shortness of breath or wheezing on exam. Holding home inhalers, replacing with nebulized treatments while in the inpatient (7) Chronic low back pain: Stable. Continue cyclobenzaprine, oxycodone (8) Depression: No concern for current depressive episode. Continue sertraline, Seroquel (9) Coronary artery disease: No concern for acute coronary syndrome. - Continue meds as above (10) Hypertension: On significant regimen for his heart failure. - Monitor BP (11) DVT prophylaxis: Apixaban Subjective Doing well. Continued right hip pain and pain at some of the leg bruises. Reports no fevers/chills, chest pain, shortness of breath, abdominal pain, nausea, or vomiting. Review of Systems 2 Musculoskeletal: + joint pain (Right hip); no back pain and no muscle weakness Physical Exam Constitutional: WD/WN, vitals as above Eyes: PERRL, conjunctivae normal, anicteric sclerae ENMT: external ear and nose normal, oropharynx normal Neck: trachea midline, no thyromegaly Respiratory: normal respiratory effort, lungs clear to auscultation Cardiovascular: RRR, no murmur, no edema Gastrointestinal (Abdomen): normal bowel sounds, soft, nontender, no hepatosplenomegaly Musculoskeletal: no cyanosis or clubbing, extremities motor strength 5/5 Skin: no rashes, warm and dry Neurologic: PERRL, EOMI, accommodation nl, no face palsy, no dysarthria Psychiatric: A+Ox3, euthymic affect Results & Data Vital Signs (Past 12 Hours) Vital Signs Temp Pulse Resp BP BP Pulse Ox 09/03/18 11:55 36.5 C 91 H 18 123/83 92 09/03/18 11:24 77 18 92 09/03/18 07:52 36.9 C 75 16 105/79 90 09/03/18 07:05 64 18 90 09/03/18 03:09 36.8 C 67 18 102/64 91 (1) Syncope Syncope type: unspecified Qualified Code(s): R55 - Syncope and collapse
--- NOTE | 2018-09-03 15:45 | Heart Failure Progress Note ---
Date of Service September 03, 2018 Assessment & Plan (1) Chronic systolic (congestive) heart failure: Patient is stable from a heart failure standpoint. He is near-euvolemic. He's actually net positive 2.5 L this admission. His weight has not changed. He should continue his home diuretic regimen of Torsemide 20 mg BID even days and Torsemide 40 mg am and 20 mg pm on odd days. Continue spironolactone 50 mg daily. Continue daily standing weights an strict I&Os. He should maintain a low sodium diet and fluid restriction. (2) Ischemic cardiomyopathy: Patient is on minimal therapy at this point due to ongoing issues with symptomatic hypotension. He has been on low dose Carvedilol at 3.125 mg BID for awhile. We have discussed stopping this in the past due to his symptoms. The patient prefers to stay on this medication. Entresto has been discontinued in the past due to hypotension. The patient has a good understanding of his disease and his overall prognosis. He has declined advanced therapies in the past. He has an ICD for primary prevention. (3) Paroxysmal A-fib: Rate remains well controlled on his current regimen. He has been having issues maintaining a stable INR for several weeks. It has been recommended that he try a novel agent due to his recurrent falls and increased risk for bleeding. He is going to do a trial of Eliquis upon discharge. Disposition: Anticipate discharge tomorrow as per the primary service. Follow up with the heart failure program as scheduled on 09/08/2018 at 3:00 pm. Subjective Mr. Morgan is a 57-year-old man with a complex past medical history including cardiomyopathy and ventricular tachycardia status post dual-chamber ICD, coronary artery disease post RCA PCI with 2 JUVE 04/16/2017, peripheral arterial disease with known lower extremity arterial aneurysm status post endovascular stenting and [id number] bypass surgery, prior recurrent VTE, paroxysmal atrial fibrillation, orthostatic hypotension, anemia, questionable seizure disorder, and tobacco abuse with severe COPD who is currently admitted for supertherapeutic INR and recurrent falls. Dr. 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 From a heart failure standpoint, the patient is feeling well this admission. He denies any increased shortness of breath. His edema is well controlled. He denies any worsening orthopnea or PND. BNP on admission was 935. He's been ambulating around his room and in the hallways and he denies dizziness or lightheadedness. Physical Exam Vital Signs (Past 24 Hours): Last Vital Signs Temp 36.7 C 09/03/18 15:09 Pulse 72 09/03/18 15:09 Resp 18 09/03/18 15:09 BP 99/66 L 09/03/18 15:09 Pulse Ox 91 09/03/18 15:09 General: No acute distress. Alert and oriented HEENT: Head is normal. PERRLA. EOMI. Sclera anicteric. Ears, nose and throat unremarkable. Mucous membranes moist. Neck: Supple, No appreciable JVD Lungs: Decreased breath sounds, L base greater than R. No rales or rhonchi Cardiac: Regular rate and rhythm. S1-S2 normal. No appreciable murmur, gallop or rub. Abdomen: Soft and nontender. Bowel sounds normal. No abdominal bruit. Extremities: Without cyanosis or clubbing. Trace pretibial edema bilaterally. Multiple areas of ecchymosis noted. Skin: No rash or abnormal lesions. Normal turgor. Neurologic: No lateralizing changes or focal deficits. Psychiatric: Affect appropriate.
[2018-09-03] MEDS: DIGOXIN 0.125 MG TAB PO SCH (16:31)
[2018-09-03] MEDS: SPIRONOLACTONE 25 MG TAB PO SCH (16:32)
[2018-09-03] MEDS ORDERED: DOCUSATE SODIUM 100 MG CAP PO SCH (21:00)
[2018-09-03] MEDS: ATORVASTATIN 40 MG TAB PO SCH (21:01)
[2018-09-03] MEDS: APIXABAN 5 MG TABLET PO SCH (21:02)
[2018-09-03] MEDS: DOCUSATE SODIUM 100 MG CAP PO SCH (21:02)
[2018-09-03] MEDS: QUETIAPINE FUMARATE 100 MG TABLET PO SCH (21:02)
[2018-09-03] MEDS ORDERED: BISACODYL 5 MG TABEC PO PRN (21:35)
[2018-09-04] MEDS: ALBUT/IPRATROP 3MG/0.5MG NEB 3 ML VIAL NEB SCH ×3 (03:28→14:10)
[2018-09-04 06:04] LABS: Hematocrit (blood only) 33.3 % (42-52); Hemoglobin 10.8 g/dL (14.0-18.0); Mean Corpuscular Hgb Conc 32.4 g/dL (32-36); Mean Corpuscular Volume 101.2 fL (80-100); Mean Platelet Volume 10.3 fL (7.4-10.4); Platelet Count 146 K/uL (130-400); RDW Coefficient of Variation 17.1 % (11.5-14.5); RDW Standard Deviation 63.3 fL (36.4-46.3); Red Blood Count 3.29 M/uL (4.7-6.1); White Blood Count 5.97 K/uL (4.8-10.8)
[2018-09-04] MEDS: OXYCODONE/ACETAMINOPHEN 10-325 TAB PO PRN ×2 (06:32→11:00)
[2018-09-04] MEDS: POLYETHYLENE (MIRALAX) 17 GM PACK PO PRN (07:59)
[2018-09-04] MEDS: FLUTICASONE/SALMETEROL 250/50 (ADVAIR) 14 PUFF/1 INHALER INH SCH (07:59)
[2018-09-04] MEDS: BusPIRone 15 MG TAB PO SCH ×2 (08:00→14:09)
[2018-09-04] MEDS: CYCLOBENZAPRINE HCL 10 MG TAB PO PRN (08:00)
[2018-09-04] MEDS: PANTOprazole 40 MG TAB PO SCH (08:00)
[2018-09-04] MEDS: CARVEDILOL 3.125 MG TAB PO SCH (08:00)
[2018-09-04] MEDS: APIXABAN 5 MG TABLET PO SCH (08:00)
[2018-09-04] MEDS: LORATADINE 10 MG TAB PO SCH (08:00)
[2018-09-04] MEDS: CETIRIZINE HCL 10 MG TABLET PO SCH (08:00)
[2018-09-04] MEDS: SERTRALINE HCL 100 MG TABLET PO SCH (08:00)
[2018-09-04] MEDS: AMIODARONE 200 MG TAB PO SCH (08:00)
--- NOTE | 2018-09-04 16:54 | Discharge Summary ---
Date of Service September 04, 2018 Admission HPI Per Admitting Provider 57-year-old male with a complex medical history including ischemic cardiomyopathy, atrial fibrillation, COPD presents to the hospital by direction of his home health nurse who found a INR greater than 10 on lab draws today. The patient states that he has been taking his Coumadin as directed, 2 mg daily. He states that over the past week he has developed bruises all over his legs and arms. He says that one week ago he did not have any bruises, but slowly over this duration he reports minor injuriesbumping into things. In addition to minor injuries, the patient has had a number of falls over the past week. He relates the falls to syncopal episodes that he has been dealing with. The patient was recently admitted for syncopal episodes at the beginning of June. He says that he remembers prior to and after passing out. He did have one concerning fall at home, where he hurt his right hip and hit his head. He says that these falls have been unwitnessed, but his roommate has heard him fall and has come quickly to his attention. He describes severe right hip pain since the fall. Constitutional; patient denies fevers, chills, night sweats. He has been feeling off lately and fatigued. Chest; no chest pain, no palpitations, no worsening edema, no cough Abdomen; no abdominal pain, no nausea/vomiting/diarrhea Principal Diagnosis Elevated INR from warfarin; bruising Discharge Exam Constitutional WD/WN, vitals as above Eyes PERRL, conjunctivae normal, anicteric sclerae ENMT external ear and nose normal, oropharynx normal Neck trachea midline, no thyromegaly Respiratory normal respiratory effort, lungs clear to auscultation Cardiovascular RRR, no murmur, no edema Gastrointestinal (Abdomen) normal bowel sounds, soft, nontender, no hepatosplenomegaly Musculoskeletal no cyanosis or clubbing, extremities motor strength 5/5 Skin no rashes, warm and dry Neurologic PERRL, EOMI, accommodation nl, no face palsy, no dysarthria Psychiatric A+Ox3, euthymic affect Discharge Data Allergies Allergy/AdvReac Type Severity Reaction Status Date / Time heparin Allergy Severe SEE COMMENT Verified 09/01/18 20:58 Iodinated Contrast- Oral and Allergy Severe swelling, Verified 09/01/18 20:58 IV Dye hives ibuprofen AdvReac Intermediate nausea Verified 09/01/18 20:58 vomiting Consultations 09/01/18 20:32 ED Decision to Admit Stat 09/01/18 23:36 Consult Case Management - Discharge Planning Routine Ordered Studies 09/01/18 18:06 CT abd pelvis wo con Stat CT cervical spine wo con Stat CT head/brain wo con Stat Hospital Course (1) Elevated INR: Patient given 10 of vitamin K in the ED. - Held warfarin, clopidogrel, aspirin on admission Restarted aspirin & clopidogrel on 09/03 - No signs of bleeding. - On discharge, switched to Eliquis. Coupon given, and it's only $11/month. Will follow up with Cathleen Spence in clinic. (2) Recurrent falls: Fell at home onto right hip. No fracture seen on x-rays on 09/01. - Possibly due to low BP from his beta-sravan. CHF clinic to manage. (3) Syncope: Was recently seen at the beginning of June for syncopal episodes no med changes were deemed necessary at that time. The patient did not have orthostatic changes at that time. Falls precautions (4) Atrial fibrillation: (5) Chronic systolic (congestive) heart failure: Ischemic cardiomyopathy EF of 20%. No signs of volume overload at this time, & BNP was only 935 on admission. No exacerbation. Continue Entresto, spironolactone, amiodarone, carvedilol, atorvastatin - Discussed with Ms. Spence - Home dosing is torsemide 20mg PO two times one day and 40mg PO in AM, 20mg PO in HS every other day (6) COPD (chronic obstructive pulmonary disease): No shortness of breath or wheezing on exam. Holding home inhalers, replacing with nebulized treatments while in the inpatient (7) Chronic low back pain: Stable. Continue cyclobenzaprine, oxycodone (8) Depression: No concern for current depressive episode. Continue sertraline, Seroquel (9) Coronary artery disease: No concern for acute coronary syndrome. - Continue meds as above (10) Hypertension: On significant regimen for his heart failure. - Monitor BP (11) DVT prophylaxis: Apixaban Total Time Total Time Spent Total Time Spent (In Minutes): 35 Total Time Includes: Examination of the Patient, Discharge Planning and Communication With Other Providers Discharge Plan Discharge Items Patient Disposition: Home - Self-Care Reason For Visit: ELEVATED INR,FALLS Discharge Diagnosis: Elevated INR with bruising Discharge Goals: Decrease discomfort, Diagnostic testing and Prevent disease Activity: Resume your previous activity Non-emergency contact: Primary Care Provider and Wire Preparation Worker Call non-emergency contact if: you have any medication questions, your symptoms worsen, your pain is not controlled and your temperature is above 100.5 Follow-up/Referrals: Hilda Marie MD [Primary Care Provider] - 09/15/18 2:00 pm (Please, follow up with Dr. Marie on FridaySeptember 15 at 2:00 pm. *If you need to change this appointment, call the office at [phone].) Peggy Spence PA-C [Physician Membership Correspondent] - 09/08/18 3:00 pm (Please, follow up at [facility] Office with Cathleen Spence PA-C on FridaySeptember 08 at 3:00 pm. *[address] of [facility] [place]. If you need to change this appointment, call the office at [phone].) Diet: Heart Healthy Fluids: 2000ml (8 cups) Addtl Provider Instructions: Please stop your warfarin and use the Eliquis instead. Follow up with Ms. Spence in the heart failure clinic on Friday. Otherwise continue your medications as before. Call your Primary Care doctor if any of the following symptoms or problems start or get worse: * Shortness of breath or difficulty breathing * Wake up at night short of breath * Chest pain * Cough * Swelling of your hands, feet, or legs * More fatigued or tired with your normal activity * Palpitations - sudden fast heart beats WEIGHT * Weigh yourself every morning after using the bathroom. * Use the same scale. * Wear the same amount of clothing. * Write your weight down on a chart. * Call your Primary Care doctor if you gain more than 2-3 pounds in 1-2 days. MEDICATIONS * Use this discharge instruction sheet for medication instructions. * Take your medications at the time your doctor ordered. * Do not skip a dose of your medicines. * If you miss a dose of medicine, take it as soon as possible, but DO NOT DOUBLE A DOSE. * Read your medicine information when you get home. * Know all of the side effects of your medicine. If in doubt, ask your pharmacist * Call your Primary Care doctor's office if you have any side effects. * Be sure all of your doctors know what medicine and herbs you take (including cold, flu, and herbal medicine). Take the following with you to your follow-up doctor appointments: * Weight Chart * Medication List * List of questions Do not drink excessive alcohol, beer or wine. Prescriptions: New Eliquis 5 mg Tablet 5 mg PO BID Qty: 60 RF: 0 Continued atorvastatin 80 mg tablet 80 mg PO HS RF: 0 aspirin 81 mg Tablet,Delayed Release (Dr/Ec) 81 mg PO QAM RF: 0 azelastine 137 mcg (0.1 %) aerosol,spray 1 spray Intranasal BID PRN (Reason: ALLERGIES) RF: 0 buspirone 15 mg tablet 15 mg PO TID RF: 0 multivitamin [Daily Multiple] Tablet 1 tab PO QAM RF: 0 cyclobenzaprine 10 mg Tablet 10 mg PO BID PRN (Reason: Muscle Spasm) RF: 0 polyethylene glycol 3350 [Miralax] 17 gram Powder In Packet 17 g PO DAILY PRN (Reason: Constipation) RF: 0 sertraline 100 mg tablet 150 mg PO QAM RF: 0 clopidogrel 75 mg tablet 75 mg PO QAM RF: 0 quetiapine 100 mg tablet 200 mg PO HS RF: 0 oxycodone-acetaminophen 10-325 mg tablet 1 tab PO Q4H PRN (Reason: Pain) RF: 0 pantoprazole 40 mg tablet,delayed release (DR/EC) 40 mg PO QAM RF: 0 ranitidine HCl 150 mg tablet 150 mg PO Q12H RF: 0 loratadine [Claritin] 10 mg Tablet 10 mg PO QAM RF: 0 melatonin 10 mg Tablet 10 mg PO HS RF: 0 spironolactone 25 mg tablet 50 mg PO 1600 RF: 0 albuterol sulfate [Ventolin HFA] 90 mcg/actuation Hfa Aerosol Inhaler 2 puff INHALATION Q6H PRN (Reason: Shortness Of Breath) RF: 0 diclofenac sodium [Voltaren] 1 % gel 4 gm TOP QID PRN (Reason: Pain) RF: 0 amiodarone 200 mg Tablet 200 mg PO BID Qty: 60 RF: 0 acetaminophen [Tylenol Extra Strength] 500 mg Tablet 1,000 mg PO Q6H PRN (Reason: Pain) RF: 0 flaxseed oil-omega 3,6,9 1,300 mg-845 mg -117 mg-117 mg Capsule 1 cap PO 1200 RF: 0 fluticasone propion-salmeterol [Advair Diskus] 250-50 mcg/dose blister with device 1 puff Inhalation BID RF: 0 ondansetron HCl [Zofran] 4 mg Tablet 4 mg PO QID PRN (Reason: Nausea) RF: 0 docusate sodium [Colace] 100 mg Capsule 200 mg PO HS RF: 0 ginkgo biloba 120 mg Tablet 120 mg PO DAILY RF: 0 coenzyme Q10 [Co Q-10] 200 mg Capsule 200 mg PO DAILY RF: 0 Calcium Magnesium 500 mg calcium -250 mg Tablet PO DAILY RF: 0 Combivent Respimat 20-100 mcg/actuation Mist 1 puff INHALATION TID RF: 0 torsemide [Demadex] 20 mg Tablet 20 mg PO UD RF: 0 torsemide [Demadex] 20 mg tablet 40 mg PO UD RF: 0 saw palmetto 160 mg Capsule PO BID RF: 0 Zyrtec 10 mg Capsule 10 mg PO DAILY RF: 0 Probiotic 3 billion cell Capsule PO DAILY RF: 0 torsemide 20 mg tablet 20 mg PO BID RF: 0 carvedilol [Coreg] 3.125 mg tablet 3.125 mg PO BID RF: 0 digoxin [Digox] 125 mcg tablet 125 mcg PO DAILY RF: 0 Discontinued warfarin [Coumadin] 2 mg Tablet 2 mg PO DAILY Qty: 0 RF: 0 Stand-Alone Forms: [facility] [place] [employer] [facility]/Other Patient Handouts: Heart Failure Meds Control, Heart Failure Warning Signs, Heart Failure Tracking Weight, Heart Failure Coping Discharge Orders: Discharge Order (Routine); Ordered 09/04/18 Ordered By: Renny Choi Admission Data Admit Date/Time: 09/01/18 21:55 Attending Provider: Renny Choi Admit Provider: Dennis Giang Primary Care Provider: Hilda Marie Other Providers: Renny Choi Service: Telemetry Other Interventions: Discharge Summary Assessment (RN) Last Done: 09/04/18 11:58 Infection Control - Act 87 Hepatitis C Last Done: 09/02/18 12:20 DC Date/Time DO NOT enter until pt leaves facility: 09/04/18 14:37
== END 2018-09-04 14:37 | disposition home health service (06) | DRG 948 ==
LOC: ED 17:43 → SUATTDRO 21:55 → 2S 21:55

== ENCOUNTER 2018-09-14 17:48 | Inpatient (IN) ==
[2018-09-14] MEDS ORDERED: SODIUM CHLORIDE 0.9% 500 ML IV ONE (18:45)
[2018-09-14 19:05] LABS: Basophils # (auto) 0.03 K/uL (0-0.2); Basophils % (auto) 0.4 %; Eosinophils # (auto) 0.06 K/uL (0-0.5); Eosinophils % (auto) 0.7 %; Hematocrit (blood only) 43.5 % (42-52); Immature Granulocytes # (auto) 0.07 K/uL (0.00-0.02); Immature Granulocytes % (auto) 0.9 %; Lymphocytes # (auto) 1.87 K/uL (1.2-3.4); Lymphocytes % (auto) 23.3 %; Mean Corpuscular Hgb Conc 34.5 g/dL (32-36); Mean Platelet Volume 10.6 fL (7.4-10.4); Monocytes # (auto) 0.86 K/uL (0.11-0.59); Monocytes % (auto) 10.7 %; Neutrophils # (auto) 5.15 K/uL (1.4-6.5); Platelet Count 281 K/uL (130-400); RDW Coefficient of Variation 16.5 % (11.5-14.5); RDW Standard Deviation 58.9 fL (36.4-46.3); Red Blood Count 4.44 M/uL (4.7-6.1); White Blood Count 8.04 K/uL (4.8-10.8)
[2018-09-14 19:15] LABS: INR 2.9 (0.9-1.1); Prothrombin Time 27.5 Seconds (9.0-12.0)
[2018-09-14] MEDS ORDERED: ACETAMINOPHEN 500 MG TAB PO STA (19:39)
--- NOTE | 2018-09-14 19:39 | CT Scan Report ---
HEAD CT NONCONTRAST CT DOSE: 614.27 mGy.cm HISTORY: fall TECHNIQUE: Multiaxial CT images of the head were performed without the use of intravenous contrast. A utomated exposure control was utilized for this study. A dose lowering technique was utilized adheri ng to the principles of ALARA. Comparison: Head CT 09/01/2018. Findings: The paranasal sinuses and mastoid air cells are clear. The calvarium and skull base are int act. The ventricles and sulci are within normal limits. There is no mass, hematoma, midline shift, or acute infarct. Impression: No acute intracranial abnormality. Electronically signed by: Ananda Zazueta M.D. 09/14/2018 7:37 PM
[2018-09-14 19:43] LABS: Alanine Aminotransferase 23 U/L (12-78); Albumin Globulin Ratio 0.9 (0.9-2); Albumin Level 3.6 gm/dl (3.4-5.0); Alkaline Phosphatase 80 U/L (45-117); Bilirubin,Total 0.3 mg/dl (0.2-1); Blood Urea Nitrogen 28 mg/dl (7-18); Calcium 8.5 mg/dl (8.5-10.1); Carbon Dioxide 29 mmol/L (21-32); Chloride 97 mmol/L (98-107); Creatinine Clr Calc Pharmacy 59.1 ml/min; Est GFR (African American) 48.3; Est GFR (Non-African American) 41.7; Globulin 3.9 gm/dl (2.5-4.0); Glucose 102 mg/dl (70-99); Sodium 136 mmol/L (136-145); Total Protein 7.5 gm/dl (6.4-8.2); Troponin I < 0.015 ng/ml (0-0.045)
--- NOTE | 2018-09-14 19:52 | XRay Report ---
XR chest 1V portable HISTORY: 57 years-old Male Chest Pain acute atypical chest pain COMPARISON: Chest radiograph 09/01/2018 TECHNIQUE: Portable AP view of the chest FINDINGS: Cardiomediastinal and hilar silhouettes are unchanged. Stable positioning of the left subclavian pace r/AICD. There is unchanged left hemidiaphragm elevation with persistent left basilar opacities. The r ight lung is generally clear. Healed remote fracture about the posterior right seventh rib. Mild gene ral changes of the shoulders and spine. IMPRESSION: 1. No acute process. 2. Unchanged left hemidiaphragm elevation with left basilar opacities, likely representing atelectasi s/scarring. The above report was generated using voice recognition software. It may contain grammatical, syntax o r spelling errors. Electronically signed by: Keaton Schuler M.D. 09/14/2018 7:50 PM
[2018-09-14 20:26] LABS: Potassium 3.3 mmol/L (3.5-5.1)
--- NOTE | 2018-09-14 20:31 | History & Physical Report ---
Date of Service September 14, 2018 Assessment & Plan (1) Syncope: Reportedly had uncontrolled syncope given his history of arrhythmia cardiomyopathy he should be protected by his implanted device. This was interrogated and I do not have the report at this point time we will continue him on monitored setting bedside orthostatics conducted by myself or not significant tonight. We will have electrophysiology reviewed the interrogation in the morning and also see the patient (2) Elevated INR: Patient's INR is 2.9. He reportedly stopped taking his Coumadin a few weeks ago when he was switched to Eliquis. We will recheck an INR in the morning however if it remains persistently elevated consideration for vitamin K should be undertaken. He likely could have mixed up some of his medications however today his liver function is not significantly abnormal to be consistent with hepatic dysfunction associated with the elevation of his INR (3) Chronic systolic (congestive) heart failure: Patient appears euvolemic at this point time he does take a 2 time a day dose of furosemide typically 20 mg every morning and then at lunch all the. He will be given a monitor fluid bolus in the ER to try to help his symptoms of orthostasis that he comes with a history of For history of coronary disease he is maintained on aspirin and Plavix as well as atorvastatin 80 he cannot tolerate an RALPH inhibitor and ARB due to his lower blood pressure With his cardiomyopathy has both a history of V. fib and also paroxysmal atrial fibrillation he is also maintained on amiodarone (4) Chronic low back pain: Patient has chronic low back patient is typically takes oxycodone and cyclobenzaprine these will be continued at this time (5) Atrial fibrillation: Patient will remain on carvedilol 3.25 and digoxin (its level is therapeutic on presentation) as well as Eliquis for thromboembolic prevention Amiodarone dose is confirmed to be 200 twice daily (6) COPD (chronic obstructive pulmonary disease): Patient COPD has been stable for this patient takes inhaled medications of Advair Combivent and as needed albuterol (7) Depression: Patient takes sertraline 150 mg every morning, and quetiapine History of Present Illness Primary Care Provider: Hilda Marie MD Patient presents after having an controlled syncopal episode. The patient t ypically is orthostatic hypotension and gets dizzy at times but he states he had no warning and he just fell to the ground and hit himself. He takes Eliquis for his history of paroxysmal atrial fibrillation. He says this was an unusual event where his typical orthostasis and he is concerned that there is something more significantly wrong with him. Initial evaluation did not show any significant suspicious changes in his lab work as physical exam is consistent with his previous having significant cardiomyopathy and marked orthostasis at times. Allergies Allergy/AdvReac Type Severity Reaction Status Date / Time heparin Allergy Severe SEE COMMENT Verified 09/01/18 20:58 Iodinated Contrast- Oral and Allergy Severe swelling, Verified 09/01/18 20:58 IV Dye hives ibuprofen AdvReac Intermediate nausea Verified 09/01/18 20:58 vomiting Home Medications Home Medications Medication Instructions Recorded Confirmed Type aspirin 81 mg PO QAM 03/02/18 09/01/18 History atorvastatin 80 mg PO HS 03/02/18 09/01/18 History azelastine 1 spray INTRANASAL BID PRN 03/02/18 09/01/18 History buspirone 15 mg PO TID 03/02/18 09/01/18 History albuterol sulfate [Ventolin HFA] 2 puff INHALATION Q6H PRN 03/03/18 09/01/18 History clopidogrel 75 mg PO QAM 03/03/18 09/01/18 History cyclobenzaprine 10 mg PO BID PRN 03/03/18 09/01/18 History loratadine [Claritin] 10 mg PO QAM 03/03/18 09/01/18 History melatonin 10 mg PO HS 03/03/18 09/01/18 History multivitamin [Daily Multiple] 1 tab PO QAM 03/03/18 09/01/18 History oxycodone-acetaminophen 1 tab PO Q4H PRN 03/03/18 09/01/18 History pantoprazole 40 mg PO QAM 03/03/18 09/01/18 History polyethylene glycol 3350 [Miralax] 17 g PO DAILY PRN 03/03/18 09/01/18 History quetiapine 200 mg PO HS 03/03/18 09/01/18 History ranitidine HCl 150 mg PO Q12H 03/03/18 09/01/18 History sertraline 150 mg PO QAM 03/03/18 09/01/18 History spironolactone 50 mg PO 1600 03/03/18 09/01/18 History diclofenac sodium [Voltaren] 4 gm TOP QID PRN 03/30/18 09/01/18 History amiodarone 200 mg PO BID #60 tab 04/30/18 09/01/18 Rx acetaminophen [Tylenol Extra 1,000 mg PO Q6H PRN 05/22/18 09/01/18 History Strength] flaxseed oil-omega 3,6,9 1 cap PO 1200 05/22/18 09/01/18 History fluticasone propion-salmeterol 1 puff INHALATION BID 06/22/18 09/01/18 History [Advair Diskus] Calcium Magnesium 0 mg PO DAILY 09/01/18 09/01/18 History Combivent Respimat 1 puff INHALATION TID 09/01/18 09/01/18 History Probiotic 0 mmu cells PO DAILY 09/01/18 09/01/18 History Zyrtec 10 mg PO DAILY 09/01/18 09/01/18 History carvedilol [Coreg] 3.125 mg PO BID 09/01/18 09/01/18 History coenzyme Q10 [Co Q-10] 200 mg PO DAILY 09/01/18 09/01/18 History digoxin [Digox] 125 mcg PO DAILY 09/01/18 09/01/18 History docusate sodium [Colace] 200 mg PO HS 09/01/18 09/01/18 History ginkgo biloba 120 mg PO DAILY 09/01/18 09/01/18 History ondansetron HCl [Zofran] 4 mg PO QID PRN 09/01/18 09/01/18 History saw palmetto 0 mg PO BID 09/01/18 09/01/18 History torsemide 20 mg PO BID 09/01/18 09/01/18 History torsemide [Demadex] 20 mg PO UD 09/01/18 09/01/18 History torsemide [Demadex] 40 mg PO UD 09/01/18 09/01/18 History apixaban [Eliquis] 5 mg PO BID #60 tab 09/04/18 Rx Past Med/Surg History Medical History Anxiety (Chronic) Diastolic CHF (Resolved) Hypotension (Resolved) NSTEMI (non-ST elevated myocardial infarction) (Resolved) Systolic CHF (Resolved) CHF (congestive heart failure) (Resolved) Anemia of chronic disease History of venous thromboembolism History of orthostatic hypotension PVD (peripheral vascular disease) Paroxysmal A-fib COPD (chronic obstructive pulmonary disease) Ischemic cardiomyopathy Cardiomyopathy Presence of combination internal cardiac defibrillator (ICD) and pacemaker Acid reflux Aneurysm pt reports multiple aneurysms of LLE w/ stents Anxiety Atrial fibrillation COPD (chronic obstructive pulmonary disease) CVA (cerebral vascular accident) no residual effects Cardiac LV ejection fraction <20% Collar bone fracture Compression fracture Congestive heart failure DJD (degenerative joint disease) Hepatitis C History of left heart catheterization x10 per pt Hyperlipidemia Kidney disease DELICIA (obstructive sleep apnea) On Coumadin for atrial fibrillation Pacemaker Rib fractures Weakness Surgical History Status post popliteal-distal bypass surgery H/O rotator cuff surgery right S/P insertion of iliac artery stent Family History Other No significant family history Social History Preferred Language: Armenian Communication Ability: Effective Beliefs That Will Affect Care: None marital status: Current Living Situation: Boarding Home current occupational status: disabled Feels Safe at Home: Yes Smoking Status: Former smoker Hx Alcohol Use: No Hx Substance Use: No Review of Systems Review of Systems: ROS: Chronically ill feels weak and tired No double vision blurry vision No problems with speech or swallowing No palpitations, patient is occasional chest pain with exertion but this is his usual She is dyspneic with exertion associate with his cardiomyopathy No abdominal pain nausea vomiting or poor appetite of late not have any other symptoms such as was listed previously No burning urine urine frequency or changes in color No focal joint pain or muscle pain No skin rashes or oral lesions No unusual bruising or bleeding Chronic lower back pain and muscle spasm but has no numbness or loss of strength No changes in memory or confusion Physical Exam Physical Exam: The patient is in mild chronic daily distress. Different than usual Vital signs as documented. Head exam is unremarkable. normocephalic, atraumatic Neck is with minor jugular venous distension, thyromegaly, or lymphademopathy Lungs are clear to auscultation no rales at the bases Cardiac exam reveals Rhythm is regular. Systolic murmur is heard Abdominal exam reveals normal bowel sounds, no masses, no organomegaly has a bruise on his abdomen from his fall does not appear to be a rectus sheath hematoma Extremities are mildly edematous and both pedal pulses are present Neurologic exam is A&Ox3, no focal deficits, strength is equal bilateral Psychologically seems neither anxious or depressed Skin is warm Dry has a few bruises from his fall Results & Data Vital Signs (Past 12 Hours) Vital Signs Temp Pulse Pulse Resp BP BP Pulse Ox 09/14/18 19:44 72 18 105/72 98 09/14/18 18:37 97 09/14/18 18:13 36.9 C 115 H 22 93/67 L 97 (1) Syncope Syncope type: unspecified Qualified Code(s): R55 - Syncope and collapse
[2018-09-14] MEDS ORDERED: PROMETHAZINE HCL 6.25 MG in SODIUM CHLORIDE 0.9% 50 ML IV PRN (20:46)
[2018-09-14] MEDS ORDERED: HYDROmorphone INJ 0.5 MG/0.5 ML SYR ONE (21:00)
--- NOTE | 2018-09-14 21:31 | XRay Report ---
LUMBAR SPINE 5 VIEWS HISTORY: lower back pain COMPARISON: Lumbar spine 06/22/2018. FINDINGS: Mild to moderate endplate compression deformity seen throughout the lumbar spine remains un changed. Therefore, these are likely old. No acute fractures identified. Moderate facet degenerative changes within the lower lumbar spine. The sacrum appears intact. Aneurysmal dilatation of the distal abdominal aorta and iliac arteries are again noted. No subluxation. Disc spaces are preserved. IMPRESSION: 1. Multiple old compression deformities seen throughout the lumbar spine. 2. No acute fractures identified within the lumbar spine. 3. No change in the aneurysmal dilatation of the distal abdominal aorta and iliac arteries. Electronically signed by: Ananda Zazueta M.D. 09/14/2018 9:29 PM
--- NOTE | 2018-09-14 21:32 | XRay Report ---
THORACIC SPINE 3 VIEWS HISTORY: fall COMPARISON: Thoracic spine 09/01/2018. FINDINGS: Left-sided pacemaker/defibrillator is again noted. Chronic elevation the left hemidiaphragm with left basilar atelectasis persists. Paraspinal soft tissues are unremarkable. Old compression de formities within the mid to lower thoracic spine remain unchanged. No acute compression fractures сергей ntified. No subluxation. Mild degenerative disc disease within the mid thoracic spine. IMPRESSION: No change in the old compression fractures within the mid to lower thoracic spine. No acute fractures identified. Electronically signed by: Ananda Zazueta M.D. 09/14/2018 9:31 PM
[2018-09-14] MEDS ORDERED: DICLOFENAC SOD 1% GEL 100 GM TUBE EXT PRN (21:42)
[2018-09-14] MEDS ORDERED: ALBUTEROL HFA 8 GM INHALER INH PRN (21:42)
[2018-09-14] MEDS ORDERED: ONDANSETRON INJ 2 MG/ML 2 ML VIAL IV PRN (21:42)
[2018-09-14] MEDS ORDERED: ACETAMINOPHEN 500 MG TAB PO PRN (21:42)
[2018-09-14] MEDS ORDERED: SODIUM CHLORIDE 0.9% 500 ML IV SCH (21:42)
[2018-09-14] MEDS ORDERED: ONDANSETRON 4 MG TAB PO PRN (21:42)
[2018-09-14] MEDS ORDERED: OXYCODONE/ACETAMINOPHEN 10-325 TAB ONE (22:05)
[2018-09-14] MEDS ORDERED: TORSEMIDE 10 MG TAB PO SCH ×2 (23:00)
[2018-09-14] MEDS: FLUTICASONE/SALMETEROL 250/50 (ADVAIR) 14 PUFF/1 INHALER INH SCH (23:04)
[2018-09-14] MEDS: QUETIAPINE FUMARATE 100 MG TABLET PO SCH (23:07)
[2018-09-14] MEDS: ATORVASTATIN 40 MG TAB PO SCH (23:07)
[2018-09-14] MEDS: DOCUSATE SODIUM 100 MG CAP PO SCH (23:08)
[2018-09-14] MEDS: BusPIRone 15 MG TAB PO SCH (23:08)
[2018-09-14] MEDS: AMIODARONE 200 MG TAB PO SCH (23:08)
[2018-09-14] MEDS: APIXABAN 5 MG TABLET PO SCH (23:11)
[2018-09-14] MEDS: IPRATROPIUM BROMIDE/ALBUTEROL respimat INH INH SCH (23:14)
[2018-09-14] MEDS: CYCLOBENZAPRINE HCL 10 MG TAB PO PRN (23:15)
[2018-09-14] MEDS: CARVEDILOL 3.125 MG TAB PO SCH (23:22)
[2018-09-14] MEDS: ASTELIN - ORDER AWAITING ACTION SCH (23:23)
--- OUTSIDE RECORDS SUMMARY | 2018-09-14 23:42 | External Medical Summary | Continuity of Care Document ---
:1960 Author Name Kevin Jane, Provider Address Unavailable Unavailable , Care Team Providers Name Role Phone Sheryl Lyn PA-C Unavailable [email or web address] Frank Jane Unavailable [email or web address] Johnny FIELDS Unavailable [email or web address] Jordy DE LA CRUZ Unavailable [email or web address] [address] MARIE M.D. Unavailable Unavailable Unavailable Unavailable Unavailable Problems Pain in joint of left shoulder (719.41) (M25.512) Atherosclerosis of [place] coronary artery of [place] heart (4 14.01) (I25.10) Hypotension (458.9) (I95.9) Systolic congestive heart failure (428.20) (I50.20) CHF (congestive heart failure), NYHA class III (428.0) (I50. 9) Compression fracture of thoracic vertebra (805.2) (S22.000A) Depression (311) (F32.9) Peripheral arterial disease (443.9) (I73.9) Anemia (285.9) (D64.9) Dyslipidemia (272.4) (E78.5) Male hypogonadism (257.2) (E29.1) GERD without esophagitis (530.81) (K21.9) Chronic viral hepatitis C (070.54) (B18.2) Antiplatelet or antithrombotic long-term use (V58.63) (Z79.0 2) Former smoker (V15.82) (Z87.891) Dermatitis (692.9) (L30.9) 5a-reductase Deficiency (255.2) ICD (implantable cardioverter-defibrilla tor), single, in situ (V45.02) (Z95.810) Orthostatic hypotension (458.0) (I95.1) Obstructive sleep apnea (327.23) (G47.33) Cardioverter-defibrillator Pulse Generator Insertion Cardiomyopathy (425.4) (I42.9) Atrial fibrillation (427.31) (I48.91) Low back pain (724.2) (M54.5) Chronic obstructive pulmonary disease (496) (J44.9) Allergic rhinitis (477.9) (J30.9) Hyponatremia (276.1) (E87.1) Insomnia (780.52) (G47.00) Allergies and Adverse Reactions Ambien (Allergy) Reaction: Sleeplessn ess Ibuprofen TABS (Allergy) Iodinated Contrast Media (Allergy) LORazepam TABS (Allergy) Reaction: Visua l Disturbance Trazodone and Deriv (Allergy) Reaction: Sleeplessness Medications Cyclobenzaprine HCl - 10 MG Oral Tablet; TAKE 1 TABLET TWICE DAILY NEEDED. DOROTHY Lyn Start: 10-Aug-2018 Quantity: 60 Refills: 1 oxyCODONE-Acetaminophen 10-325 MG Oral T ablet; TAKE 1 TABLET EVERY 4 HOURS NEEDED. MAX DOSE 6 tablets daily. Lucinda Marie Start: 05-Jun-2017 Quantity: 180 Refills: 0 raNITIdine HCl - 150 MG Oral Tablet; TAKE 1 TABLET SAUL RY 12 HOURS DAILY. Lucinda Marie Start: 13-Jul-2018 Quantity: 60 Refills: 5 Sertraline HCl - 100 MG Oral Tablet; TAKE 1 AND 1/2 TA BLETS DAILY. Lucinda Marie Start: 05-Jun-2017 Quantity: 45 Refills: 5 Ventolin HFA 108 (90 Base) MCG/ACT Inhal ation Aerosol Solution; INHALE 2 PUFFS EVERY 6 HOURS NEEDED SHORT OF BREATH Lucinda Marie Start: 13-Jul-2018 Quantity: 1 8 GM Inhaler Refills: 5 QUEtiapine Fumarate 100 MG Oral Tablet; TAKE 1 TO 2 TA BLETS AT BEDTIME Lucinda Marie Start: 11-Jun-2018 Quantity: 60 Refills: 1 Advair Diskus 250-50 MCG/DOSE Inhalation Aerosol Powder Breath Activated; INHALE 1 PUFF EVERY 12 HOURS. Lucinda Marie Start: 11-Jun-2018 Quantity: 1 14 Inhaler Pack Refills: 5 busPIRone HCl - 15 MG Oral Tablet; TAKE 1 TABLET 3 BONNIE ES DAILY. Lucinda Marie Start: 11-Jun-2018 Quantity: 90 Refills: 1 Combivent Respimat 20-100 MCG/ACT Inhala tion Aerosol Solution; ONE INHALATION 4 TIMES DAILY (MAX OF 6 INHALATIONS PER 24 HOURS) Lucinda Marie Start: 13-Jul-2018 Quantity: 1 4 GM Inhaler Refills: 5 Calcium Magnesium 750 300-300 MG Oral Tablet; TAKE 1 TABLET DAILY. Start: 01-Jul-2018 Refills: 0 Flaxseed Oil 1000 MG Oral Capsule; TAKE 1 CAPSULE Daily Start: 01-Jul-2018 Refills: 0 Ondansetron HCl - 4 MG Oral Tablet; TAKE 1 TABLET Ever y 6 hours PRN nausea Lucinda Marie Start: 21-Oct-2017 Quantity: 30 Refills: 5 Saw [place] Oral Capsule; Take 1 capsule twice daily Refills: 0 Co Q-10 200 MG Oral Capsule; TAKE 1 CAPSULE Daily Refills: 0 Probiotic 250 MG Oral Capsule; TAKE 1 CAPSULE Daily Refills: 0 MiraLax Oral Packet; TAKE 1 PACKET Daily PRN Lucinda Marie Start: 26-Jun-2017 Refills: 5 10 Packet Box Colace 100 MG Oral Capsule; TAKE 2 CAPSU LES EVERY EVENING. Hold for loose stools DIAMOND Turner Start: 26-Jun-2017 Quantity: 60 Refills: 3 Atorvastatin Calcium 80 MG Oral Tablet; TAKE 1 TABLET AT BEDTIME. DOROTHY Lyn Start: 10-Aug-2018 Quantity: 30 Refills: 1 Clopidogrel Bisulfate 75 MG Oral Tablet; TAKE 1 TABLET DAILY. DOROTHY Lyn Start: 10-Aug-2018 Quantity: 30 Refills: 1 Melatonin 10 MG Oral Tablet; TAKE 1 TABLET Bedtime Lucinda Marie Start: 20-Jun-2017 Refills: 0 Pantoprazole Sodium 40 MG Oral Tablet Delayed Release; TAKE 1 TABLET DAILY. Lucinda Marie Start: 08-Sep-2018 Quantity: 30 Refills: 5 Spironolactone 25 MG Oral Tablet; TAKE 2 TABLET DAILY. Lucinda Olsen Start: 12-Sep-2017 Quantity: 60 Refills: 5 Ginkgo Biloba 120 MG Oral Capsule; TAKE 1 CAPSULE Daily Lucinda Matthew Start: 05-Nov-2017 Refills: 0 Multi Vitamin Daily Oral Tablet; TAKE 1 TABLET DAILY. Lucinda Bob Start: 05-Nov-2017 Refills: 0 Carvedilol 3.125 MG Oral Tablet; TAKE (1) TABLET TWICE A DAY. Lucinda Marie Start: 02-Apr-2018 Quantity: 180 Refills: 3 Amiodarone HCl - 200 MG Oral Tablet; TAKE ONE TABLET B Y MOUTH 2 TIMES A DAY Lucinda Marie Start: 13-Jul-2018 Quantity: 60 Refills: 0 Torsemide 20 MG Oral Tablet; TAKE 1 TABL ET TWICE DAILY on even days, TAKE 2 TABS in the am and 1 TAB in the pm on odd days. DOROTHY Spence Start: 02-Jul-2018 Quantity: 90 Refills: 3 Aspirin EC Low Dose 81 MG Oral Tablet Delayed Release; TAKE 1 TABLET DAILY. Lucinda Marie Start: 13-Jul-2018 Quantity: 30 Refills: 0 ZyrTEC Allergy 10 MG Oral Capsule; TAKE 1 CAPSULE Daily Lucinda Matthew Start: 11-Aug-2018 Quantity: 30 Refills: 5 Voltaren 1 % Transdermal Gel; APPLY FOUR TIMES DAILY NEED ED FOR PAIN Start: 08-Sep-2018 Refills: 0 100 GM Tube Loratadine 10 MG Oral Tablet; TAKE 1 TABLET DAILY. Start: 08-Sep-2018 Refills: 0 Eliquis 5 MG Oral Tablet; Take 1 tablet twice daily Start: 08-Sep-2018 Refills: 0 Azelastine HCl - 0.1 % Nasal Solution; 1 spray each nostril twice a day as needed for allergies Lucinda Marie Start: 23-Dec-2017 Quantity: 1 30 ML Bottle Refills: 5 Procedures PT/INR Date: 27-Aug-2018 CBC With DIFF Date: 11-Aug-2018 Basic Metabolic Panel Date: 08-Sep-2018 Basic Metabolic Panel Date: 08-Sep-2018 Basic Metabolic Panel Date: 08-Sep-2018 Cardioverter-defibrillator Pulse Generator Insertion Immunizations Immunizations not documented Social History - Smoking Status Former smoker Plan of Treatment Planned Encounters Appointment; Peggy Spence PA-C Start: 24-Sep-2018 9:30 Re quest Planned Observations Planned Goals not documented Results PT/INR Laboratory: [facility] Laboratory [address] [facility] [address] tel: 18-Aug-2018 9:10 Prothrombin Time 35.9 {Seconds} Range: 9.0-12.0 Seconds (above high threshold) INR 3.9 (above high threshold) Range: 0 .9-1.1 Basic Metabolic Panel Laboratory: [facility] Laboratory [address] [facility]. [facility] [address] tel: 18-Aug-2018 9:10 SODIUM 137 mmol/L Range: 136-145 mmol /L POTASSIUM 3.8 mmol/L Range: 3.5-5.1 mmo l/L CHLORIDE 101 mmol/L Range: 98-107 mmol/ L CARBON DIOXIDE 27 mmol/L Range: 21-32 m mol/L ANION GAP 8.0 Range: 3-11 BLOOD UREA NITROGEN 18 mg/dl Range: 7-1 8 mg/dl CREATININE 1.83 mg/dl (above high Range: 0.6-1.4 mg/dl threshold) Estimated GFR () Comment s: Units: ml/min 45.8 per 1.73 meters squa redThe estimated GFR (CKD-E PI equation) has not be en validatedfor inpatie nt settings and may not be an accurate reflectiono f renal function in critically ill patie nts or those withrapidly ch anging renal function (e.g. RODNEY). Estimated GFR (Non- Comments: Uni ts: ml/min [place]) 39.5 per 1.73 meters squa redThe estimated GFR (CKD-E PI equation) has not be en validatedfor inpatie nt settings and may not be an accurate reflectiono f renal function in critically ill patie nts or those withrapidly ch anging renal function (e.g. RODNEY). BUN/CREATININE RATIO 10.0 Range: 10-20 GLUCOSE 150 mg/dl (above high Range: 70 -99 mg/dl threshold) CALCIUM 9.2 mg/dl Range: 8.5-10.1 mg/ dl Basic Metabolic Panel Laboratory: [facility] Laboratory [address] [facility]. [facility] [address] tel: 25-Aug-2018 9:30 SODIUM 134 mmol/L (below low Range: 136 -145 mmol/L threshold) POTASSIUM 3.6 mmol/L Range: 3.5-5.1 mmo l/L CHLORIDE 97 mmol/L (below low Range: 98 -107 mmol/L threshold) CARBON DIOXIDE 31 mmol/L Range: 21-32 m mol/L ANION GAP 6.0 Range: 3-11 BLOOD UREA NITROGEN 23 mg/dl (above Rang e: 7-18 mg/dl high threshold) CREATININE 1.63 mg/dl (above high Range: 0.6-1.4 mg/dl threshold) Estimated GFR () Comment s: Units: ml/min 52.7 per 1.73 meters squa redThe estimated GFR (CKD-E PI equation) has not be en validatedfor inpatie nt settings and may not be an accurate reflectiono f renal function in critically ill patie nts or those withrapidly ch anging renal function (e.g. RODNEY). Estimated GFR (Non- Comments: Uni ts: ml/min [place]) 45.4 per 1.73 meters squa redThe estimated GFR (CKD-E PI equation) has not be en validatedfor inpatie nt settings and may not be an accurate reflectiono f renal function in critically ill patie nts or those withrapidly ch anging renal function (e.g. RODNEY). BUN/CREATININE RATIO 14.3 Range: 10-20 GLUCOSE 109 mg/dl (above high Range: 70 -99 mg/dl threshold) CALCIUM 8.8 mg/dl Range: 8.5-10.1 mg/ dl PT/INR Laboratory: [facility] Laboratory [address] [place]. [facility] [address] tel: 25-Aug-2018 9:30 Prothrombin Time 69.9 {Seconds} Range: 9.0-12.0 Seconds (above high threshold) INR 7.9 (Critical High) Range: 0.9-1.1 Comments: Critical r esult called to RAYMUNDO Black 08/25/18 at 1140 by Karl mancuso were verbalized back. Basic Metabolic Panel Laboratory: [facility] Laboratory [address] [place]. [facility] [address] tel: 01-Sep-2018 9:50 SODIUM 134 mmol/L (below low Range: 136 -145 mmol/L threshold) POTASSIUM 4.0 mmol/L Range: 3.5-5.1 mmo l/L CHLORIDE 96 mmol/L (below low Range: 98 -107 mmol/L threshold) CARBON DIOXIDE 32 mmol/L Range: 21-32 m mol/L ANION GAP 5.0 Range: 3-11 BLOOD UREA NITROGEN 19 mg/dl (above Rang e: 7-18 mg/dl high threshold) CREATININE 1.55 mg/dl (above high Range: 0.6-1.4 mg/dl threshold) Estimated GFR () Comment s: Units: ml/min 56.0 per 1.73 meters squa redThe estimated GFR (CKD-E PI equation) has not be en validatedfor inpatie nt settings and may not be an accurate reflectiono f renal function in critically ill patie nts or those withrapidly ch anging renal function (e.g. RODNEY). Estimated GFR (Non- Comments: Uni ts: ml/min [place]) 48.3 per 1.73 meters squa redThe estimated GFR (CKD-E PI equation) has not be en validatedfor inpatie nt settings and may not be an accurate reflectiono f renal function in critically ill patie nts or those withrapidly ch anging renal function (e.g. RODNEY). BUN/CREATININE RATIO 12.3 Range: 10-20 GLUCOSE 98 mg/dl Range: 70-99 mg/dl CALCIUM 9.2 mg/dl Range: 8.5-10.1 mg/ dl PT/INR Laboratory: [facility] Laboratory [address] [facility]. [facility] [address] tel: 01-Sep-2018 9:50 Prothrombin Time > 90.0 {Seconds} Range: 9.0-12.0 Seconds (above high threshold) INR > 10.4 (Critical High) Range: 0.9-1 .1 Comments: Critical r esult called to CHAYA Myles 09/01/18 at 1307 by Amirah yans were verbalized back. CT Cervical Spine w/o Laboratory: [facility] Diagnostic Contrast (Pending) Imaging 1800 [facility] 01-Sep-2018 18:54 CT CERVICAL SPINE W/O IV CONT [facility], [place] [phone] CT Scan Report Patient: APRIL RIVERA I Admit Date: 09/01/18 MR#: [id number] Address1: [address] Acct ID:[id number] Address2: Date: 1960 [facility] Zip: [place] [address] Age: 57 Location: ED Sex: M Room/Bed: Att Phy: Diagnosis: INR 12- REFERRED Yamilet Phy: Hilda Marie MD Service Da te: 09/01/18 Fam Phy: Interpreting Phy: Jacky Yun Admit Phy: Ordering Phy: Ortiz Tran M.D. cc: CT SCAN OF THE CERVICAL SPINE CLINICAL HISTORY: Fall. COMPARISON STUDY: CT of the cervical spine dated 06/22/2018. TECHNIQUE: CT scan of the cervical spine is performed from the skull base to the upper thoracic spine. Images are reviewed in the axial, sagittal, and coronal planes. IV contrast was not administered for this examination. A dose lowering technique was utilized adhering to the principles of ALARA. FINDINGS: Skeletal structures: The skeletal structures are well mineralized. There is no evidence of fractureor subluxation involving the cervical spine. Vertebral body height and alignment are maintained. There is straightening of the cervical lordosis. Small anterior osteophytes are seen throughout. Theodontoid process and lateral masses are intact. The atlantoaxial articulation is preserved noting mild productive degenerative change. The spinous processes appear intact. There is mild to moderate multilevel cervical spondylosis. Uncovertebral and facet arthropathy contribute to neural foraminal stenosis at several levels. This is greatest in the lower cervical spine. Intervertebral discs: Mild disc space narrowing is seen at C6-C7 with associated endplate sclerosis. The remaining disc spaces are maintained. Central canal: The posterior disc osteophyte complex at C6-C7 may contribute to mild acquired compromise of the central canal. Soft tissues: The prevertebral and paraspinous soft tissues are within normal limits. There is atherosclerotic calcification of the carotid bulbs. Pacemaker leads are noted in the left axilla. Calvarium: The visualized calvarium at the skull base appears intact. Brain parenchyma: Partially visualized brain parenchyma the skull base is within normal limits. Sinuses and mastoids: The visualized paranasal sinuses are clear. The mastoid air cells are well pneumatized. Lung apices: Clear as visualized. IMPRESSION: There is no evidence of fracture or subluxation involving the cervical spine. Electronically signed by: Jacky Zhou M.D. 09/01/2018 6:57 PM Dictated: 09/01/181853 Transcribed: 09/01/181853 CT Head w/o Contrast Laboratory: [facility] Diagnostic (Pending) Imaging [address] [facility] 01-Sep-2018 18:57 CT HEAD WITHOUT CONTRAST [facility], [place] [phone] CT Scan Report Patient: APRIL RIVERA I Admit Date: 09/01/18 MR#: [id number] Address1: [address] [place] [address] [address] Acct ID:[id number] Address2: Date: 1960 [facility] Zip: [place] [address] Age: 57 Location: ED Sex: M Room/Bed: Att Phy: Diagnosis: INR 12- REFERRED Yamilet Phy: Hilda Marie MD Service Da te: 09/01/18 Fam Phy: Interpreting Phy: Jacky Yun Admit Phy: Ordering Phy: Ortiz Tran M.D. cc: CT SCAN OF THE BRAIN WITHOUT IV CONTRAST CLINICAL HISTORY: Fall. COMPARISON STUDY: CT of the brain dated 06/22/2018. TECHNIQUE: Unenhanced axial CT scan of the brain is performed from the vertex to the skull base. Adose lowering technique was utilized adhering to the principles of ALARA. FINDINGS: Brain parenchyma: The brain parenchyma is normal in appearance. There is no hemorrhage, mass effect, or evidence of acute territorial ischemia by CT criteria. Vargas-white matter differentiation is preserved. No extra-axial fluid collection is seen. Ventricles, sulci, cisterns: Normal in configuration. Intracranial vasculature: There is atherosclerotic calcification of the cavernous carotid arteries. Calvarium: Unremarkable. Sinuses and mastoids: The visualized paranasal sinuses are clear. The mastoid air cells are well pneumatized. Orbits: The bony orbits are grossly intact. IMPRESSION: No acute intracranial abnormality. Electronically signed by: Jacky Zhou M.D. 09/01/2018 6:59 PM Dictated: 09/01/181856 Transcribed: 09/01/181856 CT Abd/Pelvis w/o Laboratory: [facility] Diagnostic Contrast (No IV, No Imaging [address] [facility] Oral) (Pending) Kristi SALAMANCA 01-Sep-2018 19:00 CT ABD/PELVIS NO IV OR ORAL CN [facility], [place] [phone] CT Scan Report Patient: APRIL RIVERA I Admit Date: 09/01/18 MR#: [id number] Address1: [facility] [address] Acct ID:[id number] Address2: Date: 1960 [facility] Zip: [place] [address] Age: 57 Location: ED Sex: M Room/Bed: Att Phy: Diagnosis: INR 12- REFERRED Yamilet Phy: Hilda Marie MD Service Da te: 09/01/18 Fam Phy: Interpreting Phy: Jacky Yun Admit Phy: Ordering Phy: Ortiz Tran M.D. cc: CT SCAN OF THE ABDOMEN AND PELVIS WITHOUT IV CONTRAST CLINICAL HISTORY: Fall. Right-sided abdominal pain. COMPARISON STUDY: Abdominal CT dated 10/01/2017. TECHNIQUE: CT scan of the abdomen and pelvis is performed from the lung bases to the proximal femora. Images are reviewed in the axial, sagittal, and coronal planes. IV contrast was not administered for this examination as per the referring clinician. Note that the examination was performed in significantly suboptimal fashion without IV contrast. A dose lowering technique was utilized adhering to the principles of ALARA. CT DOSE: 2350.21 mGy.cm FINDINGS: Lung bases: The heart is mildly enlarged and without pericardial effusion. The coronary arteries are densely calcified. Pacemaker leads are noted. Emphysema is suspected. There is elevation of the left hemidiaphragm with patchy dependent bibasilar airspace consolidation. No pneumothorax is seen in either lung base. No pleural effusion is identified. There is a small hiatal hernia. Liver: The unenhanced liver is normal in size, contour, and attenuation. There is no intrahepatic biliary ductal dilatation. Gallbladder: Unremarkable. Spleen: Normal in size and attenuation. Pancreas: The unenhanced pancreas is moderately atrophic and grossly unremarkable. Adrenal glands: Unremarkable. Kidneys: The unenhanced kidneys history cortical atrophy and are without hydronephrosis. There is apunctate nonobstructing calculus in the lower pole of the left kidney. There is no evidence of contour deforming renal mass lesion. Abdominal vasculature: There is advanced atherosclerotic calcification and mild ectasia of the abdominal aorta. There are bilateral common iliac artery aneurysms, measuring up to 3.3 cm on the right and 3.3 cm on the left. A right internal iliac artery aneurysm measures up to 2.2 cm, and a left internal iliac artery aneurysm measures up to 1.7 cm. Bowel: The small bowel and colon are normal in course and caliber. The appendix is well-visualizedand normal. Peritoneum: There is no intraperitoneal free air or abdominal ascites. There is a small fat-containing umbilical hernia. Lymphadenopathy: None. Pelvic viscera: The bladder is normal as visualized. The prostate gland is diminutive and heterogeneous. Skeletal structures: The skeletal structures are osteopenic. No lytic or blastic lesions are seen. There are chronic compression deformities of T10, T11, T12, L1, L2, L4, and L5. These are unchanged from 10/01/2017. There are healed right-sided rib fractures. IMPRESSION: 1. Significantly suboptimal examination without IV contrast. 2. There is no evidence of solid organ injury in the abdomen or pelvis on this unenhanced examination. 3. There are bilateral common iliac artery aneurysms as well as bilateral internal iliac artery aneurysms. These are similar in appearance to previous. 4. Cardiomegaly and cardiac pacemaker. 5. Dependent airspace consolidation is seen at both lung bases. This could represent atelectasis and/or an infectious/inflammatory pneumonitis. Clinical correlation will be required. 6. Additional findings as above. Electronically signed by: Jacky Zhou M.D. 09/01/2018 7:11 PM Dictated: 09/01/181899 Transcribed: 09/01/181899 XR femur RT 2V routine Laboratory: [facility] Diagnostic (Pending) Imaging [address] [facility] [place] 01-Sep-2018 19:11 XR femur RT 2V routine [facility], [place] [phone] XRay Report Patient: APRIL RIVERA I Admit Date: 09/01/18 MR#: [id number] Address1: [address] [place] [address] Acct ID:[id number] Address2: Date: 1960 [facility] Zip: [place] [address] Age: 57 Location: ED Sex: M Room/Bed: Att Phy: Diagnosis: INR 12- REFERRED Yamilet Phy: iHlda Marie MD Service Da te: 09/01/18 [facility] Phy: Interpreting Phy: Jacky Yun Admit Phy: Ordering Phy: Ortiz Tran M.D. cc: SINGLE VIEW PELVIS; 3 VIEWS RIGHT FEMUR CLINICAL HISTORY: Fall. Right hip and leg pain. FINDINGS: An AP view of the pelvis with AP, frog-leg, and crosstable lateral views of the right femur are obtained. Correlation is made with pelvic CT dated 10/01/2017. The skeletal structures are osteopenic. There is no radiographic evidence of fracture involving the hips or bony pelvis. There is no radiographic evidence of femoral fracture. Mild/moderate arthritic change and joint space narrowing is seen in the hips. The sacroiliac joints are preserved. The right knee joint is grossly maintained. The overlying soft tissues are normal in appearance. There is advanced atherosclerotic calcification of the right femoral artery with a large stent in place. Surgical clips are noted in the left groin. There is no bowel obstruction. Bilateral iliac artery aneurysms are noted. IMPRESSION: 1. There is no radiographic evidence of fracture involving the hips or pelvis. 2. There is no radiographic evidence of right femoral fracture. 3. Additional findings as above. Electronically signed by: Jacky Zhou M.D. 09/01/2018 7:14 PM Dictated: 09/01/181910 Transcribed: 09/01/181910 X-ray Pelvis 1 or 2 view Laboratory: [facility] Diagnostic Routine (Pending) Imaging [address] [facility] [place] 01-Sep-2018 19:11 PELVIS 1 OR 2 VIEW ROUTINE [facility], [place] [phone] XRay Report Patient: APRIL RIVERA I Admit Date: 09/01/18 MR#: [id number] Address1: [address] Acct ID:[id number] Address2: Date: 1960 [facility] Zip: [place] [address] Age: 57 Location: ED Sex: M Room/Bed: Att Phy: Diagnosis: INR 12- REFERRED Yamilet Phy: Hilda Marie MD Service Da te: 09/01/18 [facility] Phy: Interpreting Phy: Jacky Yun Admit Phy: Ordering Phy: Ortiz Tran M.D. cc: SINGLE VIEW PELVIS; 3 VIEWS RIGHT FEMUR CLINICAL HISTORY: Fall. Right hip and leg pain. FINDINGS: An AP view of the pelvis with AP, frog-leg, and crosstable lateral views of the right femur are obtained. Correlation is made with pelvic CT dated 10/01/2017. The skeletal structures are osteopenic. There is no radiographic evidence of fracture involving the hips or bony pelvis. There is no radiographic evidence of femoral fracture. Mild/moderate arthritic change and joint space narrowing is seen in the hips. The sacroiliac joints are preserved. The right knee joint is grossly maintained. The overlying soft tissues are normal in appearance. There is advanced atherosclerotic calcification of the right femoral artery with a large stent in place. Surgical clips are noted in the left groin. There is no bowel obstruction. Bilateral iliac artery aneurysms are noted. IMPRESSION: 1. There is no radiographic evidence of fracture involving the hips or pelvis. 2. There is no radiographic evidence of right femoral fracture. 3. Additional findings as above. Electronically signed by: Jacky Zhou M.D. 09/01/2018 7:14 PM Dictated: 09/01/181910 Transcribed: 09/01/181910 X-Ray Chest 1 View Laboratory: [facility] Diagnostic Portable (Pending) Imaging [address] [place] [address] 01-Sep-2018 19:14 X-Ray Chest 1 VW Portable (CXR1P) [facility], [place] [phone] XRay Report Patient: APRIL RIVERA I Admit Date: 09/01/18 MR#: [id number] Address1: [address] [place] [address] Acct ID:[id number] Address2: Date: 1960 [facility] Zip: [place] [address] Age: 57 Location: ED Sex: M Room/Bed: Att Phy: Diagnosis: INR 12- REFERRED Yamilet Phy: Hilda Marie MD Service Da te: 09/01/18 [facility] Phy: Interpreting Phy: Jacky Yun Admit Phy: Ordering Phy: Ortiz Tran M.D. cc: SINGLE VIEW CHEST CLINICAL HISTORY: Fall. FINDINGS: An AP, portable, upright chest radiograph is compared to study dated 06/22/2018 and correlated with chest CT dated 09/13/2017. The examination is degraded by portable technique and patient rotation. A 3-lead cardiac AICD is unchanged in position and partially obscures the left lower chest. The heart is enlarged and there is atherosclerotic calcification of the thoracic aorta.The pulmonary vasculature is noncongested. There is chronic elevation of the left hemidiaphragm withassociated left basilar opacities. No large pleural effusion or pneumothorax is seen. The skeletal structures are osteopenic. There are numerous healed right-sided rib fractures. IMPRESSION: 1. Cardiomegaly and AICD without radiographic evidence of congestive failure. 2. There is chronic elevation of the left hemidiaphragm and bibasilar airspace opacities. This could represent atelectasis and/or an infectious/inflammatory pneumonitis. Clinical correlation willbe required. Electronically signed by: Jacky Zhou M.D. 09/01/2018 7:15 PM Dictated: 09/01/181913 Transcribed: 09/01/181913 X-ray Thoracic Spine 3 Laboratory: [facility] Diagnostic Views Routine (Pending) Imaging [address] [facility] [place] 01-Sep-2018 19:15 THORACIC SPINE 3 VIEWS ROUTINE [facility], [place] [phone] XRay Report Patient: APRIL RIVERA I Admit Date: 09/01/18 MR#: [id number] Address1: [address] [place] [address] EDINSON Mclain VONNIE HOLLIDAY Acct ID:[id number] Address2: Date: 1960 [facility] Zip: [place] [address] Age: 57 Location: ED Sex: M Room/Bed: Att Phy: Diagnosis: INR 12- REFERRED Yamilet Phy: Hilda Marie MD Service Da te: 09/01/18 [facility] Phy: Interpreting Phy: Jacky Yun Admit Phy: Ordering Phy: Chelsea, Ortiz ., M.D. cc: THORACIC SPINE 3 VIEWS CLINICAL HISTORY: Fall. FINDINGS: AP, lateral, and swimmer's views of the thoracic spine are correlated with chest CT date09/13/2017. The skeletal structures are osteopenic. There is no radiographic evidence of acute fracture or malalignment. Numerous chronic thoracolumbar compression deformities are similar to previous. Anterior osteophytes are seen throughout. The transverse processes and pedicles are grossly intact as seen on the frontal view. The disc spaces appear preserved. The heart is enlarged and AICD leads are observed. There is chronic elevation of left hemidiaphragm and left basilar opacities. IMPRESSION: 1. There is no radiographic evidence of acute fracture or malalignment involving the thoracic spine. 2. Osteopenia, degenerative change, and numerous chronic thoracolumbar compression deformities as above. Electronically signed by: Jacky Zhou M.D. 09/01/2018 7:18 PM Dictated: 09/01/181914 Transcribed: 09/01/181914 CT Head w/o Contrast Laboratory: [facility] Diagnostic (Pending) Imaging [facility] 14-Sep-2018 19:14 CT HEAD WITHOUT CONTRAST [facility], [place] [phone] CT Scan Report Patient: APRIL RIVERA I Admit Date: 09/14/18 MR#: [id number] Address1: [address] [place] [address] VONNIE Acct ID:[id number] Address2: Date: 1960 [facility] Zip: [place] [address] Age: 57 Location: ED Sex: M Room/Bed: Att Phy: Diagnosis: POOR SKIN TURGOR, DYSPN EA, WEAKNESS, FALL, PAIN Yamilet Phy: Hilda Marie MD Service Da te: 09/14/18 [facility] Phy: Interpreting Phy: Ananda mendieta MD Admit Phy: Ordering Phy: Delfin Boyer DO cc: HEAD CT NONCONTRAST CT DOSE: 614.27 mGy.cm HISTORY: fall TECHNIQUE: Multiaxial CT images of the head were performed without the use of intravenous contrast.Automated exposure control was utilized for this study. A dose lowering technique was utilized adhering to the principles of ALARA. Comparison: Head CT 09/01/2018. Findings: The paranasal sinuses and mastoid air cells are clear. The calvarium and skull base are intact. The ventricles and sulci are within normal limits. There is no mass, hematoma, midline shift, or acute infarct. Impression: No acute intracranial abnormality. Electronically signed by: Ananda Zazueta M.D. 09/14/2018 7:37 PM Dictated: 09/14/181913 Transcribed: 09/14/181913 X-Ray Chest 1 View Laboratory: [facility] Diagnostic Portable (Pending) Imaging [address] [facility] 14-Sep-2018 19:49 X-Ray Chest 1 VW Portable ([id number]) [facility], [place] [phone] XRay Report Patient: APRIL RIVERA I Admit Date: 09/14/18 MR#: [id number] Address1: [address] [place] [address] EDINSON SHANKAR MG Acct ID:[id number] Address2: Date: 1960 [facility] Zip: [place] [address] Age: 57 Location: ED Sex: M Room/Bed: Att Phy: Diagnosis: POOR SKIN TURGOR, DYSPN EA, WEAKNESS, FALL, PAIN Yamilet Phy: Hilda Marie MD Service Da te: 09/14/18 Fam Phy: Interpreting Phy: Jules June her Admit Phy: Ordering Phy: Delfin Boyer DO cc: XR chest 1V portable HISTORY: 57 years-old Male Chest Pain acute atypical chest pain COMPARISON: Chest radiograph 09/01/2018 TECHNIQUE: Portable AP view of the chest FINDINGS: Cardiomediastinal and hilar silhouettes are unchanged. Stable positioning of the left subclavian pacer/AICD. There is unchanged left hemidiaphragm elevation with persistent left basilar opacities. The right lung is generally clear. Healed remote fracture about the posterior right seventh rib. Mild general changes of the shoulders and spine. IMPRESSION: 1. No acute process. 2. Unchanged left hemidiaphragm elevation with left basilar opacities, likely representing atelectasis/scarring. The above report was generated using voice recognition software. It may contain grammatical, syntaxor spelling errors. Electronically signed by: Keaton Schuler M.D. 09/14/2018 7:50 PM Dictated: 09/14/181948 Transcribed: 09/14/181948 X-Ray Lumbar Spine 2 Or Laboratory: [facility] Diagnostic 3 View (Pending) Imaging [address] [facility] 14-Sep-2018 21:27 X-Ray Lumbar Spine 2 or 3 Vws ([id number]) [facility], [place] [phone] XRay Report Patient: APRIL RIVERA I Admit Date: 09/14/18 MR#: [id number] Address1: [address] [place] [address] EDINSON SHANKAR Acct ID:[id number] Address2: Date: 1960 [facility] Zip: [place] [address] Age: 57 Location: ED Sex: M Room/Bed: Att Phy: Diagnosis: POOR SKIN TURGOR, DYSPN EA, WEAKNESS, FALL, PAIN Yamilet Phy: Hilda Marie MD Service Da te: 09/14/18 Fam Phy: Interpreting Phy: Ananda mendieta MD Admit Phy: Ordering Phy: Delfin Boyer DO cc: LUMBAR SPINE 5 VIEWS HISTORY: lower back pain COMPARISON: Lumbar spine 06/22/2018. FINDINGS: Mild to moderate endplate compression deformity seen throughout the lumbar spine remains unchanged. Therefore, these are likely old. No acute fractures identified. Moderate facet degenerative changes within the lower lumbar spine. The sacrum appears intact. Aneurysmal dilatation of the distal abdominal aorta and iliac arteries are again noted. No subluxation. Disc spaces are preserved. IMPRESSION: 1. Multiple old compression deformities seen throughout the lumbar spine. 2. No acute fractures identified within the lumbar spine. 3. No change in the aneurysmal dilatation of the distal abdominal aorta and iliac arteries. Electronically signed by: Ananda Zazueta M.D. 09/14/2018 9:29 PM Dictated: 09/14/182126 Transcribed: 09/14/182126 X-ray Thoracic Spine 3 Laboratory: [facility] Diagnostic Views Routine (Pending) Imaging [address] [facility] [place] 14-Sep-2018 21:29 THORACIC SPINE 3 VIEWS ROUTINE [facility], [place] [phone] XRay Report Patient: APRIL RIVERA I Admit Date: 09/14/18 MR#: [id number] Address1: [address] Acct ID:[id number] Address2: Date: 1960 [facility] Zip: [place] [address] Age: 57 Location: ED Sex: M Room/Bed: Att Phy: Diagnosis: POOR SKIN TURGOR, DYSPN EA, WEAKNESS, FALL, PAIN Yamilet Phy: Hilda Marie MD Service Da te: 09/14/18 Fam Phy: Interpreting Phy: Ananda mendieta MD Admit Phy: Ordering Phy: Delfin Boyer, cc: THORACIC SPINE 3 VIEWS HISTORY: fall COMPARISON: Thoracic spine 09/01/2018. FINDINGS: Left-sided pacemaker/defibrillator is again noted. Chronic elevation the left hemidiaphragm with left basilar atelectasis persists. Paraspinal soft tissues are unremarkable. Old compression deformities within the mid to lower thoracic spine remain unchanged. No acute compression fractures identified. No subluxation. Mild degenerative disc disease within the mid thoracic spine. IMPRESSION: No change in the old compression fractures within the mid to lower thoracic spine. No acute fractures identified. Electronically signed by: Ananda Zazueta M.D. 09/14/2018 9:31 PM Dictated: 09/14/182128 Transcribed: 09/14/182128 Vital Signs 08-Sep-2018 15:26 Systolic 107 mm[Hg] Comments: Position: Sitting Diastolic 79 mm[Hg] Comments: Position: Sitting Weight 235.4375 lb Heart Rate 79 /min BSA Calculated 2.29 m2 BMI Calculated 31.71 kg/m2 28-Aug-2018 10:08 Systolic 122 mm[Hg] Comments: Location: RUE; Position: Sitting Diastolic 85 mm[Hg] Comments: Location: RUE; Position: Sitting Weight 237.8 lb Heart Rate 75 /min Comments: Location: R Radial; BSA Calculated 2.3 m2 BMI Calculated 32.03 kg/m2 21-Aug-2018 9:51 Systolic 90 mm[Hg] Comments: Location: RUE; Position: Sitting Diastolic 60 mm[Hg] Comments: Location: RUE; Position: Sitting Weight 232 lb Heart Rate 110 /min BSA Calculated 2.27 m2 BMI Calculated 31.25 kg/m2 Height 72.25 in Temperature 98.9 f Comments: Method: Te mporal Respiration 16 /min Encounters Appointment; Peggy Spence PA-C 08-Sep-2018 15:00 Encounter Diagnosis: Problem not documented Appointment; Peggy Spence PA-C 28-Aug-2018 10:00 Encounter Diagnosis: Problem not documented Appointment; Hilda Marie M.D. 21-Aug-2018 10:00 Encounter Diagnosis: Problem not documented Appointment; Peggy Spence PA-C 11-Aug-2018 10:00 Encounter Diagnosis: Problem not documented Appointment; Peggy Spence PA-C 20-Jul-2018 15:00 Encounter Diagnosis: Problem not documented Appointment; Hilda Marie M.D. 15-Jul-2018 10:00 Encounter Diagnosis: Problem not documented Appointment; Peggy Spence PA-C 02-Jul-2018 10:30 Encounter Diagnosis: Problem not documented Appointment; Hilda Marie M.D. 12-Jun-2018 14:00 Encounter Diagnosis: Problem not documented Appointment; Peggy Spence PA-C 05-Jun-2018 10:30 Encounter Diagnosis: Problem not documented Appointment; Marito Guerra M.D. 26-May-2018 15:00 Encounter Diagnosis: Problem not documented Appointment; Sheryl Lyn PA-C 06-May-2018 15:30 Encounter Diagnosis: Problem not documented Appointment; Marito Guerra M.D. 22-Apr-2018 10:30 Encounter Diagnosis: Problem not documented Appointment; Hilda Marie M.D. 21-Apr-2018 14:30 Encounter Diagnosis: Problem not documented Appointment; Sheryl Lyn PA-C 03-Apr-2018 9:00 Encounter Diagnosis: Problem not documented Appointment; Rosa Isela Jackson PA-C 23-Mar-2018 11:00 Encounter Diagnosis: Problem not documented Appointment; Hilda Marie M.D. 06-Mar-2018 10:30 Encounter Diagnosis: Problem not documented Appointment; Nurse Nellie 04-Feb-2018 12:45 Encounter Diagnosis: Problem not documented Appointment; Hilda Marie M.D. 04-Feb-2018 12:15 Encounter Diagnosis: Problem not documented Appointment; Marito Guerra M.D. 21-Jan-2018 10:15 Encounter Diagnosis: Problem not documented Appointment; Catherine Cooper PA-C 16-Jan-2018 13:30 Encounter Diagnosis: Problem not documented Appointment; Hilda Marie M.D. 09-Jan-2018 10:00 Encounter Diagnosis: Problem not documented Appointment; Hilda Marie M.D. 23-Dec-2017 14:00 Encounter Diagnosis: Problem not documented Appointment; Catherine Cooper PA-C 04-Dec-2017 13:30 Encounter Diagnosis: Problem not documented Appointment; Carlos Elise DO 25-Nov-2017 13:00 Encounter Diagnosis: Problem not documented Appointment; Hilda Marie M.D. 18-Nov-2017 13:30 Encounter Diagnosis: Problem not documented Appointment; Hilda Marie M.D. 12-Nov-2017 10:00 Encounter Diagnosis: Problem not documented Appointment; Hilda Marie M.D. 05-Nov-2017 13:00 Encounter Diagnosis: Problem not documented Appointment; Marito Guerra M.D. 29-Oct-2017 10:00 Encounter Diagnosis: Problem not documented Appointment; Doyle Curtis M.D. 22-Oct-2017 10:00 Encounter Diagnosis: Problem not documented Appointment; Hilda Marie M.D. 21-Oct-2017 13:30 Encounter Diagnosis: Problem not documented Appointment; Catherine Cooper PA-C 26-Sep-2017 14:45 Encounter Diagnosis: Problem not documented Appointment; Sheryl Lyn PA-C 19-Sep-2017 15:00 Encounter Diagnosis: Problem not documented Appointment; Catherine Cooper PA-C 12-Sep-2017 14:45 Encounter Diagnosis: Problem not documented Appointment; Catherine Cooper PA-C 29-Aug-2017 13:00 Encounter Diagnosis: Problem not documented Appointment; Hilda Marie M.D. 19-Aug-2017 15:00 Encounter Diagnosis: Problem not documented Appointment; Doyle Curtis M.D. 23-Jul-2017 10:45 Encounter Diagnosis: Problem not documented Appointment; Jocelyn Turner CRNP 17-Jul-2017 10:15 Encounter Diagnosis: Problem not documented Appointment; Catherine Cooper PA-C 01-Jul-2017 14:00 Encounter Diagnosis: Problem not documented Appointment; Jocelyn Turner CRNP 19-Jun-2017 14:45 Encounter Diagnosis: Problem not documented Appointment; Pharmacy, Primary Care 19-Jun-2017 14:30 Encounter Diagnosis: Problem not documented Appointment; Catherine Cooper PA-C 09-Jun-2017 16:00 Encounter Diagnosis: Problem not documented Appointment; Jocelyn Turner CRNP 09-Jun-2017 14:15 Encounter Diagnosis: Problem not documented Appointment; Peggy Spence PA-C 24-Sep-2018 9:30 Encounter Diagnosis: Problem not documented
--- NOTE | 2018-09-15 00:02 | Emergency Department Note ---
Entered by Emelyn Jackson acting as a scribe for History of Present Illness General Chief complaint: Weakness Stated complaint: POOR SKIN TURGOR, DYSPNEA, WEAKNESS, FALL, PAIN Source: patient History of Present Illness Onset (ago): day(s) (yesterday) Location: upper extremity and lower extremity Pain Consistency: + other (worsening) Maximum Pain Intensity: 8 Quality: + other (weakness) Associated symptoms: + chest pain, + shortness of breath, + syncope and + other (sensitive nipples) The patient is a 57 year old male who presents to the Emergency Room with complaints of worsening weakness starting yesterday. The patient states that yesterday he started having episodes of passing out. He reports that he passed out three times yesterday and twice today. He states that each time he woke up he was on the floor talking to himself, except for once and it was on the bed. He states that this has happened before and has always been related to his heart. He notes that he has also had chest pain and shortness of breath since yesterday. He states that this shortness of breath is getting worse, but his chest pain is better than it was this morning. He notes that his chest pain is like a tightness on his left side. The patient complains of sensitive nipples. 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 He states that his last EF was 14% and he has a pacer/defibrillator installed. Home Medications Home Medications Medication Instructions Recorded Confirmed Type aspirin 81 mg PO QAM 03/02/18 09/14/18 History atorvastatin 80 mg PO HS 03/02/18 09/14/18 History azelastine 1 spray INTRANASAL BID PRN 03/02/18 09/14/18 History buspirone 15 mg PO TID 03/02/18 09/14/18 History albuterol sulfate [Ventolin HFA] 2 puff INHALATION Q6H PRN 03/03/18 09/14/18 History clopidogrel 75 mg PO QAM 03/03/18 09/14/18 History cyclobenzaprine 10 mg PO BID PRN 03/03/18 09/14/18 History loratadine [Claritin] 10 mg PO QAM 03/03/18 09/14/18 History melatonin 10 mg PO HS 03/03/18 09/14/18 History multivitamin [Daily Multiple] 1 tab PO QAM 03/03/18 09/14/18 History oxycodone-acetaminophen 1 tab PO Q4H PRN 03/03/18 09/14/18 History pantoprazole 40 mg PO QAM 03/03/18 09/14/18 History polyethylene glycol 3350 [Miralax] 17 g PO DAILY PRN 03/03/18 09/14/18 History quetiapine 200 mg PO HS 03/03/18 09/14/18 History ranitidine HCl 150 mg PO Q12H 03/03/18 09/14/18 History sertraline 150 mg PO QAM 03/03/18 09/14/18 History spironolactone 50 mg PO 1600 03/03/18 09/14/18 History diclofenac sodium [Voltaren] 4 gm TOP QID PRN 03/30/18 09/14/18 History amiodarone 200 mg PO BID #60 tab 04/30/18 09/14/18 Rx acetaminophen [Tylenol Extra 1,000 mg PO Q6H PRN 05/22/18 09/14/18 History Strength] flaxseed oil-omega 3,6,9 1 cap PO 1200 05/22/18 09/14/18 History fluticasone propion-salmeterol 1 puff INHALATION BID 06/22/18 09/14/18 History [Advair Diskus] Calcium Magnesium 0 mg PO DAILY 09/01/18 09/14/18 History Combivent Respimat 1 puff INHALATION TID 09/01/18 09/14/18 History Probiotic 0 mmu cells PO DAILY 09/01/18 09/14/18 History Zyrtec 10 mg PO DAILY 09/01/18 09/14/18 History carvedilol [Coreg] 3.125 mg PO BID 09/01/18 09/14/18 History coenzyme Q10 [Co Q-10] 200 mg PO DAILY 09/01/18 09/14/18 History digoxin [Digox] 125 mcg PO DAILY 09/01/18 09/14/18 History docusate sodium [Colace] 200 mg PO HS 09/01/18 09/14/18 History ginkgo biloba 120 mg PO DAILY 09/01/18 09/14/18 History ondansetron HCl [Zofran] 4 mg PO QID PRN 09/01/18 09/14/18 History saw palmetto 0 mg PO BID 09/01/18 09/14/18 History torsemide 20 mg PO BID 09/01/18 09/14/18 History torsemide [Demadex] 20 mg PO UD 09/01/18 09/14/18 History torsemide [Demadex] 40 mg PO UD 09/01/18 09/14/18 History apixaban [Eliquis] 5 mg PO BID #60 tab 09/04/18 09/14/18 Rx Allergies Allergy/AdvReac Type Severity Reaction Status Date / Time heparin Allergy Severe SEE COMMENT Verified 09/01/18 20:58 Iodinated Contrast- Oral and Allergy Severe swelling, Verified 09/01/18 20:58 IV Dye hives ibuprofen AdvReac Intermediate nausea Verified 09/01/18 20:58 vomiting Past Med/Surg History Medical History Anxiety (Chronic) Diastolic CHF (Resolved) Hypotension (Resolved) NSTEMI (non-ST elevated myocardial infarction) (Resolved) Systolic CHF (Resolved) CHF (congestive heart failure) (Resolved) Anemia of chronic disease History of venous thromboembolism History of orthostatic hypotension PVD (peripheral vascular disease) Paroxysmal A-fib COPD (chronic obstructive pulmonary disease) Ischemic cardiomyopathy Cardiomyopathy Presence of combination internal cardiac defibrillator (ICD) and pacemaker Acid reflux Aneurysm pt reports multiple aneurysms of LLE w/ stents Anxiety Atrial fibrillation COPD (chronic obstructive pulmonary disease) CVA (cerebral vascular accident) no residual effects Cardiac LV ejection fraction <20% Collar bone fracture Compression fracture Congestive heart failure DJD (degenerative joint disease) Hepatitis C History of left heart catheterization x10 per pt Hyperlipidemia Kidney disease DELICIA (obstructive sleep apnea) On Coumadin for atrial fibrillation Pacemaker Rib fractures Weakness Surgical History Status post popliteal-distal bypass surgery H/O rotator cuff surgery right S/P insertion of iliac artery stent Family History Other No significant family history Social History Preferred Language: Tajik Communication Ability: Effective Commission Sales Associate Required: No Beliefs That Will Affect Care: None marital status: Current Living Situation: Boarding Home current occupational status: disabled Other Information That Helps Us Care for You: No Feels Safe at Home: Yes Safety Concerns: Feels Safe At This Time Smoking Status: Never smoker Do You Dip or Chew Tobacco: No Second Hand Exposure: No Tobacco Cessation Education Requested by Patient: No Hx Alcohol Use: No Hx Substance Use: No Review of Systems See HPI for pertinent positives & negatives. and A total of 10 systems reviewed and were otherwise negative Physical Exam Vital Signs Vital Signs - 24 hr 09/14/18 18:13 09/14/18 18:37 09/14/18 19:44 Temperature 36.9 C Temperature Source Oral Sepsis Recent Fever Within 48 Hours No Sepsis New/Unexplained Change in Mental Status No Sepsis Action Taken by Nursing No Action Required Pulse Rate 115 H Pulse Rate [Apical] 72 Pulse Rate [Right Radial] Pulse Rhythm [Right Radial] Pulse Strength [Right Radial] Respiratory Rate 22 18 Respiratory Effort / Characteristics Non-Labored Spontaneous Non-Labored Respiratory Depth Normal Normal Respiratory Pattern Blood Pressure 93/67 L Blood Pressure [Right Arm] 105/72 Blood Pressure Mean 75 Blood Pressure Mean [Right Arm] 83 Blood Pressure Position Sitting Blood Pressure Position [Right Arm] Pulse Oximetry 97 97 98 Oxygen Delivery Method Room Air Room Air Room Air 09/14/18 21:07 09/14/18 21:09 09/14/18 21:25 Temperature 36.6 C Temperature Source Oral Sepsis Recent Fever Within 48 Hours Sepsis New/Unexplained Change in Mental Status Sepsis Action Taken by Nursing Pulse Rate Pulse Rate [Apical] 94 H 103 H Pulse Rate [Right Radial] Pulse Rhythm [Right Radial] Pulse Strength [Right Radial] Respiratory Rate 18 20 Respiratory Effort / Characteristics Non-Labored Spontaneous Respiratory Depth Normal Normal Respiratory Pattern Regular Blood Pressure Blood Pressure [Right Arm] 106/84 Blood Pressure Mean Blood Pressure Mean [Right Arm] 91 Blood Pressure Position Blood Pressure Position [Right Arm] Pulse Oximetry 94 98 Oxygen Delivery Method Room Air Room Air Room Air 09/14/18 21:30 09/14/18 23:18 Temperature 36.3 C L Temperature Source Oral Sepsis Recent Fever Within 48 Hours Sepsis New/Unexplained Change in Mental Status Sepsis Action Taken by Nursing Pulse Rate Pulse Rate [Apical] Pulse Rate [Right Radial] 87 Pulse Rhythm [Right Radial] Regular Pulse Strength [Right Radial] Normal Respiratory Rate 20 Respiratory Effort / Characteristics Non-Labored Respiratory Depth Normal Respiratory Pattern Regular Blood Pressure Blood Pressure [Right Arm] 133/126 H 107/75 Blood Pressure Mean Blood Pressure Mean [Right Arm] 128 85 Blood Pressure Position Blood Pressure Position [Right Arm] Standing Lying Pulse Oximetry 91 Oxygen Delivery Method Room Air GENERAL: Sitting up in bed, no acute distress, nontoxic, talking in full sentences. EYE EXAM: normal conjunctiva, PERRL and EOM's grossly intact OROPHARYNX: no exudate, no erythema, lips, buccal mucosa, and tongue normal and mucous membranes are moist NECK: supple, no nuchal rigidity, no adenopathy, non-tender LUNGS: Diminished breath sounds at bilateral bases. Clear to auscultation. Normal chest wall mechanics HEART: no murmurs, S1 normal and S2 normal ABDOMEN: abdomen soft, non-tender, normo-active bowel sounds, no masses, no rebound or guarding. BACK: Back is symmetrical on inspection and there is no deformity, no midline tenderness, no CVA tenderness. SKIN: no rashes and no bruising UPPER EXTREMITIES: upper extremities are grossly normal. LOWER EXTREMITIES: No pitting edema. NEURO EXAM: Normal sensorium, cranial nerves II-XII grossly intact, normal speech, no gross weakness of arms, no gross weakness of legs. Course ED COURSE: Vital signs were reviewed and showed hypotension and tachycardia. The patients medical record was reviewed The above diagnostic studies were performed and reviewed. ED treatments and interventions as stated above. 5: The patient was evaluated in room C10. A complete history and physical examination was performed. 1942: I spoke to [employer] [facility] who interrogated his pacemaker. They states that there are no arrhythmias. 1951: Upon reevaluation, the patient is doing well. He is complaining of lower back pain from his fall. I discussed my findings with the patient and he un derstands and agrees with the treatment plan. Based on the patients age, coexisting illnesses, exam and lab findings the decision to treat as an inpatient was made. The patient remained stable while under my care. The patient will be evaluated for further management. 2009: I discussed the patient's case with [facility]. He will evaluate the patient for further management. Consultations Consultation #1: I discussed the patient's case with Dr. [facility]. He will evaluate the patient for further management. Time: 20:10 Administered Medications Albuterol (Combivent Respimat) 1 puffs INH QID [facility] Stop: 10/14/18 21:41 Last Admin: 09/14/18 23:14 Dose: 1 puffs Documented by: [id number] Albuterol (Ventolin Hfa) 2 puffs INH Q6H PRN PRN Reason: Shortness Of Breath Stop: 10/14/18 21:41 Last Admin: 09/14/18 23:11 Dose: 2 puffs Documented by: [id number] Amiodarone HCl (Cordarone) 200 mg PO BID [facility] Stop: 10/14/18 21:41 Last Admin: 09/14/18 23:08 Dose: 200 mg Documented by: [id number] Apixaban (Eliquis) 5 mg PO BID [facility] Stop: 10/14/18 21:41 Last Admin: 09/14/18 23:11 Dose: 5 mg Documented by: [id number] Atorvastatin Calcium (Lipitor) 80 mg PO [facility] Stop: 10/14/18 21:41 Last Admin: 09/14/18 23:07 Dose: 80 mg Documented by: [id number] Buspirone HCl (Buspar) 15 mg PO TID [facility] Stop: 10/14/18 21:41 Last Admin: 09/14/18 23:08 Dose: 15 mg Documented by: [id number] Carvedilol (Coreg) 3.125 mg PO BID [facility] Stop: 10/14/18 21:41 Last Admin: 09/14/18 23:22 Dose: 3.125 mg Documented by: [id number] Cyclobenzaprine HCl (Flexeril) 10 mg PO BID PRN PRN Reason: Muscle Spasm Stop: 10/14/18 21:41 Last Admin: 09/14/18 23:15 Dose: 10 mg Documented by: [id number] Docusate Sodium (Colace) 200 mg PO HS [facility] Stop: 10/14/18 21:41 Last Admin: 09/14/18 23:08 Dose: 200 mg Documented by: [id number] Sodium Chloride (Nss) 500 mls @ 80 mls/hr IV .Q6H15M [facility] Stop: 09/15/18 03:56 Last Admin: 09/14/18 23:16 Dose: 80 mls/hr Documented by: [id number] Miscellaneous (Order Awaiting Action) 1 ea N/A QS [facility] Stop: 10/15/18 00:00 Last Admin: 09/14/18 23:23 Dose: Not Given Documented by: [id number] Quetiapine Fumarate (Seroquel) 200 mg PO HS [facility] Stop: 10/14/18 21:41 Last Admin: 09/14/18 23:07 Dose: 200 mg Documented by: [id number] Ranitidine HCl (Zantac) 150 mg PO Q12 [facility] Stop: 10/14/18 21:41 Last Admin: 09/14/18 23:15 Dose: 150 mg Documented by: [id number] Fluticasone/Salmeterol (Advair Diskus 250/50) 1 puffs INH BID [facility] Stop: 10/14/18 21:41 Last Admin: 09/14/18 23:04 Dose: 1 puffs Documented by: [id number] Torsemide (Demadex) 20 mg PO Q2D@1700 [facility] Stop: 10/14/18 22:59 Last Admin: 09/14/18 23:20 Dose: Not Given Documented by: [id number] Discontinued Medications Acetaminophen (Tylenol) 1,000 mg PO NOW STA Stop: 09/14/18 19:40 Last Admin: 09/14/18 19:42 Dose: 1,000 mg Documented by: [id number] Hydromorphone HCl (Dilaudid) Confirm Administered Dose 0.5 mg .ROUTE .STK-MED ONE Stop: 09/14/18 21:01 Last Admin: 09/14/18 21:03 Dose: 0.5 mg Documented by: [id number] Sodium Chloride (Nss) 500 mls @ 999 mls/hr IV .Q31M ONE Stop: 09/14/18 19:15 Last Infusion: 09/14/18 20:10 Dose: 0 mls/hr Documented by: [id number] Admin: 09/14/18 19:06 Dose: 999 mls/hr Documented by: [id number] Oxycodone/Acetaminophen (Percocet 10/325mg) Confirm Administered Dose 1 tab .ROUTE .STK-MED ONE Stop: 09/14/18 22:06 Last Admin: 09/14/18 22:07 Dose: 1 tab Documented by: [id number] Medical Decision Making Differential Diagnosis Differential diagnosis includes etiologies such as vasovagal event, infection, hypoglycemia, electrolyte abnormalities, cardiac sources, intracerebral event, toxicologic, neurologic, as well as others were entertained. Medical Records Attestation: I reviewed the patient's medical records. Home Medications Current Medication List: was personally reviewed by me Laboratory Data Attestation: I reviewed the patient's lab results. Result diagrams: 09/14/18 18:45 09/14/18 19:57 Lab Results 09/14/18 09/14/18 09/14/18 Range/Units 18:45 18:45 18:45 WBC 8.04 (4.8-10.8) K/uL RBC 4.44 L (4.7-6.1) M/uL Hgb 15.0 (14.0-18.0) g/dL Hct 43.5 (42-52) % MCV 98.0 (80-100) fL MCH 33.8 (25-34) pg MCHC 34.5 (32-36) g/dL RDW Std Deviation 58.9 H (36.4-46.3) fL RDW Coeff of Julian 16.5 H (11.5-14.5) % Plt Count 281 (130-400) K/uL MPV 10.6 H (7.4-10.4) fL Immature Gran % (Auto) 0.9 % Neut % (Auto) 64.0 % Lymph % (Auto) 23.3 % [place] % (Auto) 10.7 % Eos % (Auto) 0.7 % Baso % (Auto) 0.4 % Immature Gran # (Auto) 0.07 H (0.00-0.02) K/uL Neut # (Auto) 5.15 (1.4-6.5) K/uL Lymph # (Auto) 1.87 (1.2-3.4) K/uL [place] # (Auto) 0.86 H (0.11-0.59) K/uL Eos # (Auto) 0.06 (0-0.5) K/uL Baso # (Auto) 0.03 (0-0.2) K/uL PT 27.5 H (9.0-12.0) Seconds INR 2.9 H (0.9-1.1) Sodium 136 (136-145) mmol/L Potassium (3.5-5.1) mmol/L Chloride 97 L (98-107) mmol/L Carbon Dioxide 29 (21-32) mmol/L Anion Gap 10.0 (3-11) BUN 28 H (7-18) mg/dl Creatinine 1.75 H (0.6-1.4) mg/dl Est Cr Clr Drug Dosing 59.1 ml/min Est GFR ( Amer) 48.3 Est GFR (Non-Af Amer) 41.7 BUN/Creatinine Ratio 16.0 (10-20) Glucose 102 H (70-99) mg/dl Calcium 8.5 (8.5-10.1) mg/dl Total Bilirubin 0.3 (0.2-1) mg/dl AST (15-37) U/L ALT 23 (12-78) U/L Alkaline Phosphatase 80 (45-117) U/L Troponin I < 0.015 (0-0.045) ng/ml Total Protein 7.5 (6.4-8.2) gm/dl Albumin 3.6 (3.4-5.0) gm/dl Globulin 3.9 (2.5-4.0) gm/dl Albumin/Globulin Ratio 0.9 (0.9-2) Lipase 124 (73-393) U/L Digoxin (0.8-2.0) ng/ml 09/14/18 09/14/18 Range/Units 18:45 19:57 WBC (4.8-10.8) K/uL RBC (4.7-6.1) M/uL Hgb (14.0-18.0) g/dL Hct (42-52) % MCV (80-100) fL MCH (25-34) pg MCHC (32-36) g/dL RDW Std Deviation (36.4-46.3) fL RDW Coeff of Julian (11.5-14.5) % Plt Count (130-400) K/uL MPV (7.4-10.4) fL Immature Gran % (Auto) % Neut % (Auto) % Lymph % (Auto) % [place] % (Auto) % Eos % (Auto) % Baso % (Auto) % Immature Gran # (Auto) (0.00-0.02) K/uL Neut # (Auto) (1.4-6.5) K/uL Lymph # (Auto) (1.2-3.4) K/uL [place] # (Auto) (0.11-0.59) K/uL Eos # (Auto) (0-0.5) K/uL Baso # (Auto) (0-0.2) K/uL PT (9.0-12.0) Seconds INR (0.9-1.1) Sodium (136-145) mmol/L Potassium 3.3 L (3.5-5.1) mmol/L Chloride (98-107) mmol/L Carbon Dioxide (21-32) mmol/L Anion Gap (3-11) BUN (7-18) mg/dl Creatinine (0.6-1.4) mg/dl Est Cr Clr Drug Dosing ml/min Est GFR ( Amer) Est GFR (Non-Af Amer) BUN/Creatinine Ratio (10-20) Glucose (70-99) mg/dl Calcium (8.5-10.1) mg/dl Total Bilirubin (0.2-1) mg/dl AST 24 (15-37) U/L ALT (12-78) U/L Alkaline Phosphatase (45-117) U/L Troponin I (0-0.045) ng/ml Total Protein (6.4-8.2) gm/dl Albumin (3.4-5.0) gm/dl Globulin (2.5-4.0) gm/dl Albumin/Globulin Ratio (0.9-2) Lipase (73-393) U/L Digoxin 0.8 (0.8-2.0) ng/ml Imaging Data Radiologist's Impression: Radiology results as stated below per my review and the radiologist's interpretation: XR chest 1V portable HISTORY: 57 years-old Male Chest Pain acute atypical chest pain COMPARISON: Chest radiograph 09/01/2018 TECHNIQUE: Portable AP view of the chest FINDINGS: Cardiomediastinal and hilar silhouettes are unchanged. Stable positioning of the left subclavian pacer/AICD. There is unchanged left hemidiaphragm elevation with persistent left basilar opacities. The right lung is generally clear. Healed remote fracture about the posterior right seventh rib. Mild general changes of the shoulders and spine. IMPRESSION: 1. No acute process. 2. Unchanged left hemidiaphragm elevation with left basilar opacities, likely representing atelectasis/scarring. The above report was generated using voice recognition software. It may contain grammatical, syntax or spelling errors. Electronically signed by: Keaton Schuler M.D. 09/14/2018 7:50 PM THORACIC SPINE 3 VIEWS HISTORY: fall COMPARISON: Thoracic spine 09/01/2018. FINDINGS: Left-sided pacemaker/defibrillator is again noted. Chronic elevation the left hemidiaphragm with left basilar atelectasis persists. Paraspinal soft tissues are unremarkable. Old compression deformities within the mid to lower thoracic spine remain unchanged. No acute compression fractures identified. No subluxation. Mild degenerative disc disease within the mid thoracic spine. IMPRESSION: No change in the old compression fractures within the mid to lower thoracic spine. No acute fractures identified. Electronically signed by: Ananda Zazueta M.D. 09/14/2018 9:31 PM LUMBAR SPINE 5 VIEWS HISTORY: lower back pain COMPARISON: Lumbar spine 06/22/2018. FINDINGS: Mild to moderate endplate compression deformity seen throughout the lumbar spine remains unchanged. Therefore, these are likely old. No acute fractures identified. Moderate facet degenerative changes within the lower lumbar spine. The sacrum appears intact. Aneurysmal dilatation of the distal abdominal aorta and iliac arteries are again noted. No subluxation. Disc spaces are preserved. IMPRESSION: 1. Multiple old compression deformities seen throughout the lumbar spine. 2. No acute fractures identified within the lumbar spine. 3. No change in the aneurysmal dilatation of the distal abdominal aorta and iliac arteries. Electronically signed by: Ananda Zazueta M.D. 09/14/2018 9:[address]AST CT DOSE: 614.27 mGy.cm HISTORY: fall TECHNIQUE: Multiaxial CT images of the head were performed without the use of intravenous contrast. Automated exposure control was utilized for this study. A dose lowering technique was utilized adhering to the principles of ALARA. Comparison: Head CT 09/01/2018. Findings: The paranasal sinuses and mastoid air cells are clear. The calvarium and skull base are intact. The ventricles and sulci are within normal limits. There is no mass, hematoma, midline shift, or acute infarct. Impression: No acute intracranial abnormality. Electronically signed by: Ananda Zazueta M.D. 09/14/2018 7:37 PM ECG Data Attestation: I personally reviewed and interpreted this ECG as follows: Indication: syncope Rate (beats per minute): 96 Rhythm: sinus rhythm Findings: + ST depression (hilateral leads), + ST elevation (inferior) and + left axis deviation Comparison ECG Date: from (09/01/2018) Change: no significant change (the elevation, depression, and deviation is old) Blood Pressure Blood Pressure Findings: Low blood pressure Blood Pressure Disposition: further management by hospitalist RONALD Ayala Patient is a 57-year-old male who presents the ER for 5 episodes of syncope in the past 24 hours. He is complaining of lower back pain and does take blood t hinners. Labs were obtained and showed no significant leukocytosis or anemia. INR was therapeutic at 2.9. BMP with mild hypokalemia. Creatinine was 1.7 consistent with previous. No significant transaminitis. Bilirubin was normal. Troponin was negative. Dig was normal. CT of the head was unremarkable. X- rays of the lumbar and thoracic spine show no change in previous compression fractures. Upon presentation patient was initially hypotensive in the low 90s with heart rate in the 1 teens. Patient was given IV fluids and this improved. The fibrillator was interrogated and was unremarkable. Patient was updated bedside. He was admitted to the hospital for observation with his recurrent syncope, EF of about 20% and extensive cardiac history. Impression & Plan Syncope, Shortness of breath, Chest pain Discharge Plan Visit Data *Final* Discharge Date/Time: 09/14/18 21:09 Chief Complaint: Weakness Stated Complaint: POOR SKIN TURGOR, DYSPNEA, WEAKNESS, FALL, PAIN ED Provider: Delfin Boyer Discharge Problem: Syncope, Shortness of breath, Chest pain Patient Disposition: Admitted As Inpatient Discharge Instructions Interventions: ED Discharge Assessment Last Done: 09/14/18 21:09 Discharge Problem: Syncope Qualifiers: Syncope type: unspecified Qualified Code(s): R55 - Syncope and collapse Chest pain Qualifiers: Chest pain type: unspecified Qualified Code(s): R07.9 - Chest pain, unspecified The scribe's documentation has been prepared under my direction and personally reviewed by me in its entirety. I confirm that the note above accurately reflects all work, treatment, procedures, and medical decision making performed by me.
[2018-09-15] MEDS: HYDROmorphone INJ 0.5 MG/0.5 ML SYR IV PRN ×3 (00:28→09:51)
[2018-09-15] MEDS: OXYCODONE/ACETAMINOPHEN 10-325 TAB PO PRN ×5 (02:05→20:36)
[2018-09-15] MEDS: POLYETHYLENE (MIRALAX) 17 GM PACK PO PRN ×2 (02:08→14:36)
[2018-09-15 06:52] LABS: Calcium 8.9 mg/dl (8.5-10.1); Est GFR (African American) 49.3; Est GFR (Non-African American) 42.6; Potassium 2.7 mmol/L (3.5-5.1)
[2018-09-15] MEDS ORDERED: POTASSIUM CHLORIDE 20 MEQ TABCR PO STA (07:21)
[2018-09-15] MEDS: ASTELIN - ORDER AWAITING ACTION SCH ×2 (07:27→16:27)
[2018-09-15] MEDS: FLUTICASONE/SALMETEROL 250/50 (ADVAIR) 14 PUFF/1 INHALER INH SCH ×2 (07:27→20:25)
[2018-09-15] MEDS: CYCLOBENZAPRINE HCL 10 MG TAB PO PRN (07:29)
[2018-09-15] MEDS: CARVEDILOL 3.125 MG TAB PO SCH ×2 (07:29→20:30)
[2018-09-15] MEDS: APIXABAN 5 MG TABLET PO SCH ×2 (07:29→20:31)
[2018-09-15] MEDS: CETIRIZINE HCL 10 MG TABLET PO SCH (07:30)
[2018-09-15] MEDS: ASPIRIN 81 MG ECTAB PO SCH (07:30)
[2018-09-15] MEDS: TORSEMIDE 10 MG TAB PO SCH ×2 (07:30→16:43)
[2018-09-15] MEDS: AMIODARONE 200 MG TAB PO SCH ×2 (07:31→20:29)
[2018-09-15] MEDS: BusPIRone 15 MG TAB PO SCH ×3 (07:31→20:30)
[2018-09-15] MEDS: MULTIVITAMIN TAB PO SCH (07:31)
[2018-09-15] MEDS: SERTRALINE HCL 50 MG TABLET PO SCH (07:31)
[2018-09-15] MEDS: CLOPIDOGREL BISULFATE 75 MG TAB PO SCH (07:31)
[2018-09-15] MEDS: PANTOprazole 40 MG TAB PO SCH (07:32)
[2018-09-15] MEDS: IPRATROPIUM BROMIDE/ALBUTEROL respimat INH INH SCH ×4 (07:32→20:26)
[2018-09-15] MEDS ORDERED: NON-FORMULARY MEDICATION (Coenzyme Q10 [Co Q-10] 200 MG) PO SCH (09:00)
--- NOTE | 2018-09-15 09:51 | Cardiology Consultation ---
Date of Consultation September 15, 2018 Assessment & Plan (1) Syncope: This most likely represents orthostatic hypotension. He has relative hypotension at baseline. He likely is intravascularly depleted. He has been advised previously to reduce his diuretic regimen. His current regimen involved torsemide 20 milligrams b.i.d. alternating with 40 in the morning and 20 in the evening. He may benefit from simply going to 20 milligrams of torsemide twice daily. He was hypokalemic and had an element of mild renal dysfunction at the time of admission also supporting the diagnosis of dehydration. There is no evidence of arrhythmia as a cause for his syncope. (2) Chronic systolic (congestive) heart failure: Well compensated in this regard. We have had some difficulty being more aggressive with his medical regimen due to his relative hypotension. We could consider the addition of the valvar Ferdinand. This would not necessarily need to be done during this admission. Cost may also be a concern in this regard. A referral for transplant evaluation has also been considered in the patient has been advised to seek an evaluation at a tertiary care facility in the past. His social situation provides some barriers in this regard (3) Hypokalemia: Likely due to over diuresis. He has been supplemented. In the past he was severely hypokalemic and suffered ventricular fibrillation as result. (4) Coronary artery disease: No current symptoms to suggest angina or coronary insufficiency. Cardiac biomarkers normal at the time of admission. (5) Atrial fibrillation: Currently in sinus rhythm. No arrhythmias detected through his device interrogation today. Previously was on warfarin but presented with supratherape utic INR. Recently switched to Eliquis. History of Present Illness Reason for Consultation: Syncope Requesting Physician: Lore Attending Physician: Jose Martin DO History of Present Illness The patient is a 57-year-old gentleman with a well-established history of heart failure comma frequent syncope, ventricular fibrillation, paroxysmal atrial fibrillation and peripheral vascular disease who reported several episodes of syncope over the past couple of days. Patient states that late last week he was feeling well. He is performing his usual activity without symptoms of dyspnea or dizziness. However approximately 2 days ago he began to have episodes of syncope associated with changes in position. Initial episode happened when he got out of bed to get his medication. He has little warning and fell forward injuring himself on a dresser. A 2nd episode happened after he ambulated to the bathroom. In both cases he did have a brief sense of dizziness but very little prodrome. He found himself on the floor afterwards with some minor injuries. He continued to feel weak and had some difficulty even getting himself off the floor. The following day he had 3 more episodes which were similar in character. He was visited by a visiting nurse who actually drove him to [facility] for evaluation. Patient states that these episodes feels similar to some episodes in the past, most recently episodes were he had arrhythmic syncope. This morning he continues to feel weak. He was able to get up to the bedside commode but did have some dizziness. He states that he has had an element of anorexia and poor oral intake over the past couple of days. However, he was able to eat a good breakfast this morning. He is reported to have some element of chest pain in the emergency room but the patient states that this represented a chest tightness and was generalized in nature. It was not exertional and is currently resolved. Allergies Allergy/AdvReac Type Severity Reaction Status Date / Time heparin Allergy Severe SEE COMMENT Verified 09/01/18 20:58 Iodinated Contrast- Oral and Allergy Severe swelling, Verified 09/01/18 20:58 IV Dye hives ibuprofen AdvReac Intermediate nausea Verified 09/01/18 20:58 vomiting Home Medications Home Medications Medication Instructions Recorded Confirmed Type aspirin 81 mg PO QAM 03/02/18 09/14/18 History atorvastatin 80 mg PO HS 03/02/18 09/14/18 History azelastine 1 spray INTRANASAL BID PRN 03/02/18 09/14/18 History buspirone 15 mg PO TID 03/02/18 09/14/18 History albuterol sulfate [Ventolin HFA] 2 puff INHALATION Q6H PRN 03/03/18 09/14/18 History clopidogrel 75 mg PO QAM 03/03/18 09/14/18 History cyclobenzaprine 10 mg PO BID PRN 03/03/18 09/14/18 History loratadine [Claritin] 10 mg PO QAM 03/03/18 09/14/18 History melatonin 10 mg PO HS 03/03/18 09/14/18 History multivitamin [Daily Multiple] 1 tab PO QAM 03/03/18 09/14/18 History oxycodone-acetaminophen 1 tab PO Q4H PRN 03/03/18 09/14/18 History pantoprazole 40 mg PO QAM 03/03/18 09/14/18 History polyethylene glycol 3350 [Miralax] 17 g PO DAILY PRN 03/03/18 09/14/18 History quetiapine 200 mg PO HS 03/03/18 09/14/18 History ranitidine HCl 150 mg PO Q12H 03/03/18 09/14/18 History sertraline 150 mg PO QAM 03/03/18 09/14/18 History spironolactone 50 mg PO 1600 03/03/18 09/14/18 History diclofenac sodium [Voltaren] 4 gm TOP QID PRN 03/30/18 09/14/18 History amiodarone 200 mg PO BID #60 tab 04/30/18 09/14/18 Rx acetaminophen [Tylenol Extra 1,000 mg PO Q6H PRN 05/22/18 09/14/18 History Strength] flaxseed oil-omega 3,6,9 1 cap PO 1200 05/22/18 09/14/18 History fluticasone propion-salmeterol 1 puff INHALATION BID 06/22/18 09/14/18 History [Advair Diskus] Calcium Magnesium 0 mg PO DAILY 09/01/18 09/14/18 History Combivent Respimat 1 puff INHALATION TID 09/01/18 09/14/18 History Probiotic 0 mmu cells PO DAILY 09/01/18 09/14/18 History Zyrtec 10 mg PO DAILY 09/01/18 09/14/18 History carvedilol [Coreg] 3.125 mg PO BID 09/01/18 09/14/18 History coenzyme Q10 [Co Q-10] 200 mg PO DAILY 09/01/18 09/14/18 History digoxin [Digox] 125 mcg PO DAILY 09/01/18 09/14/18 History docusate sodium [Colace] 200 mg PO HS 09/01/18 09/14/18 History ginkgo biloba 120 mg PO DAILY 09/01/18 09/14/18 History ondansetron HCl [Zofran] 4 mg PO QID PRN 09/01/18 09/14/18 History saw palmetto 0 mg PO BID 09/01/18 09/14/18 History torsemide 20 mg PO BID 09/01/18 09/14/18 History torsemide [Demadex] 20 mg PO UD 09/01/18 09/14/18 History torsemide [Demadex] 40 mg PO UD 09/01/18 09/14/18 History apixaban [Eliquis] 5 mg PO BID #60 tab 09/04/18 09/14/18 Rx Patient History Medical History Anxiety (Chronic) Diastolic CHF (Resolved) Hypotension (Resolved) NSTEMI (non-ST elevated myocardial infarction) (Resolved) Systolic CHF (Resolved) CHF (congestive heart failure) (Resolved) Anemia of chronic disease History of venous thromboembolism History of orthostatic hypotension PVD (peripheral vascular disease) Paroxysmal A-fib COPD (chronic obstructive pulmonary disease) Ischemic cardiomyopathy Cardiomyopathy Presence of combination internal cardiac defibrillator (ICD) and pacemaker Acid reflux Aneurysm pt reports multiple aneurysms of LLE w/ stents Anxiety Atrial fibrillation COPD (chronic obstructive pulmonary disease) CVA (cerebral vascular accident) no residual effects Cardiac LV ejection fraction <20% Collar bone fracture Compression fracture Congestive heart failure DJD (degenerative joint disease) Hepatitis C History of left heart catheterization x10 per pt Hyperlipidemia Kidney disease DELICIA (obstructive sleep apnea) On Coumadin for atrial fibrillation Pacemaker Rib fractures Weakness Surgical History Status post popliteal-distal bypass surgery H/O rotator cuff surgery right S/P insertion of iliac artery stent Family History Other No significant family history Social History Preferred Language: Sinhala Communication Ability: Effective Stemmer Machine Required: No Beliefs That Will Affect Care: None marital status: Current Living Situation: Boarding Home current occupational status: disabled Other Information That Helps Us Care for You: No Feels Safe at Home: Yes Safety Concerns: Feels Safe At This Time Smoking Status: Never smoker Do You Dip or Chew Tobacco: No Second Hand Exposure: No Tobacco Cessation Education Requested by Patient: No Hx Alcohol Use: No Hx Substance Use: No Review of Systems Review of Systems: All systems reviewed & are unremarkable except as noted in HPI & below Claims to be compliant with his medications. No lower extremity edema. Weights have been stable at home. Physical Exam Physical Exam: The patient is alert and oriented. Mood and affect appeared normal. He answered all questions appropriately. HEENT: Pupils are equal and reactive to light and accommodation. Extraocular movements are intact. The sclerae are anicteric. Neuro: Cranial nerves intact Neck: Patient's neck is supple. He has palpable carotid pulses bilaterally without bruits on auscultation. There is no evidence of jugular venous dis tention. The thyroid is not enlarged. Lungs: Clear to auscultation with some occasional crackle in the right base. He has good air movement without use of accessory muscles. No rales wheezes or rhonchi. Cardiac: Heart demonstrates a regular rate and rhythm. Normal S1 and S2. No murmurs on examination. Pulses: The patient has palpable radial pulses bilaterally that are equal in intensity Extremities: There was no evidence of hypoperfusion. There is no cyanosis or clubbing. There is no edema. Skin: I did not appreciate any rashes on examination today. Results & Data Vital Signs (Past 12 Hours) Vital Signs Temp Pulse Pulse Resp BP Pulse Ox 09/15/18 08:01 36.7 C 90 19 101/71 95 09/15/18 08:00 75 09/15/18 03:43 36.4 C L 84 16 81/59 L 91 09/14/18 23:18 36.3 C L 87 20 107/75 91 Laboratory Results Abnormal Lab Results 09/14/18 09/14/18 09/14/18 18:45 18:45 18:45 WBC 8.04 RBC 4.44 L Hgb 15.0 Hct 43.5 MCV 98.0 MCH 33.8 MCHC 34.5 RDW Std Deviation 58.9 H RDW Coeff of Julian 16.5 H Plt Count 281 MPV 10.6 H Immature Gran % (Auto) 0.9 Neut % (Auto) 64.0 Lymph % (Auto) 23.3 [place] % (Auto) 10.7 Eos % (Auto) 0.7 Baso % (Auto) 0.4 Immature Gran # (Auto) 0.07 H Neut # (Auto) 5.15 Lymph # (Auto) 1.87 [place] # (Auto) 0.86 H Eos # (Auto) 0.06 Baso # (Auto) 0.03 PT 27.5 H INR 2.9 H Sodium 136 Potassium Chloride 97 L Carbon Dioxide 29 Anion Gap 10.0 BUN 28 H Creatinine 1.75 H Est Cr Clr Drug Dosing 59.1 Est GFR ( Amer) 48.3 Est GFR (Non-Af Amer) 41.7 BUN/Creatinine Ratio 16.0 Glucose 102 H Calcium 8.5 Total Bilirubin 0.3 AST ALT 23 Alkaline Phosphatase 80 Troponin I < 0.015 Total Protein 7.5 Albumin 3.6 Globulin 3.9 Albumin/Globulin Ratio 0.9 Lipase 124 Specimen Hemolysis Digoxin 09/14/18 09/14/18 09/15/18 18:45 19:57 05:46 WBC RBC Hgb Hct MCV MCH MCHC RDW Std Deviation RDW Coeff of Julian Plt Count MPV Immature Gran % (Auto) Neut % (Auto) Lymph % (Auto) [place] % (Auto) Eos % (Auto) Baso % (Auto) Immature Gran # (Auto) Neut # (Auto) Lymph # (Auto) [place] # (Auto) Eos # (Auto) Baso # (Auto) PT INR Sodium 136 Potassium 3.3 L 2.7 L D Chloride 92 L Carbon Dioxide 35 H Anion Gap 9.0 BUN 31 H Creatinine 1.72 H Est Cr Clr Drug Dosing 59.0 Est GFR ( Amer) 49.3 Est GFR (Non-Af Amer) 42.6 BUN/Creatinine Ratio 18.0 Glucose 89 Calcium 8.9 Total Bilirubin AST 24 ALT Alkaline Phosphatase Troponin I Total Protein Albumin Globulin Albumin/Globulin Ratio Lipase Specimen Hemolysis Digoxin 0.8 Diagnostic Findings Chest x-ray did not demonstrate any acute cardiopulmonary findings. X-rays of the spine and head did not reveal any fractures or injury. I performed a complete interrogation of his dual-chamber ICD. No arrhythmias. Normal function. ECG Additional Comments: Sinus rhythm with interventricular conduction delay (1) Syncope Syncope type: unspecified Qualified Code(s): R55 - Syncope and collapse
[2018-09-15] MEDS ORDERED: POTASSIUM CHLORIDE 10 MEQ TABCR PO ONE (12:00)
[2018-09-15] MEDS: BACLOFEN 10 MG TAB PO SCH ×2 (14:32→20:29)
--- NOTE | 2018-09-15 15:03 | Medical Student Progress Note ---
Date of Service September 15, 2018 Assessment & Plan (1) Syncope: His symptoms and characterization of the falls are most consistent with orthostatic hypotension, a condition he has had for some time. He has had episodes of orthostatic hypotension exacerbated by overdiuresis in April and this is likely the same phenomenon at play here. He has been taking 40mg torsemide in the morning and 20 at night, and he can switch to 20mg bid torsemide to hopefully keep him euvolemic with fewer syncopal episodes. He was also hypokalemic, 3.3 on admission and 2.7 today, and lowering the torsemide might help there as well. TEDs were recommended to help as well. His episodes do not sound like strokes or seizures given their repetitive nature without incontinence or post-ictal state. Pacemaker interrogation shows no evidence of arrhythmia as a cause for these recent syncopal episodes. Syncope type: unspecified Qualified Code(s): R55 - Syncope and collapse (2) Chronic systolic (congestive) heart failure: He appears euvolemic on exam today, recommend torsemide 20mg bid, continuing ASA. Consider ARB though his hypotension makes this unclear. He has been a transplant candidate in the past with low EF. Continue to follow with cardiology. (3) Hypokalemia: 3.3 yesterday, 2.7 today. Receiving supplemental potassium and decreasing torsemide will likely help. History of hypokalemia leading to V fib. (4) Coronary artery disease: No current chest pain. Continue to monitor for Sx. (5) Atrial fibrillation: In sinus rhythm on exam as well as EKG. Pacemaker interrogation today was normal with no arrhythmias. On apixaban with most recent INR 2.9. (6) Chronic low back pain: Chronic back pain and spasms. On oxycodone-acetaminophen at home, has been on hydromorphone here as well. He says pain is 7/10 even with this regimen, though some of this may be due to back spasming present on exam. Discontinue hydromorphone and add diclofenac to help with the spasms alongside oxycodone-acetaminophen for pain. (7) Depression: Continue sertraline and quetiapine. Subjective Mr. Morgan had two falls Friday and three more on Friday, with none in the three weeks prior but a long history of falls. He has orthostatic hypotension which has caused many of these falls, as well as coming in in April for ove rdiuresis which likely was a contributing factor to prior falls. Mr. Morgan is says that unlike his previous falls, his recent falls have been more sudden, falling from standing with little notice, resulting in him hitting the dresser and bruising himself. He says with each recent fall he has lost consciousness for a second or two, then woken up on the ground talking to himself with encouraging words like "You can do it Eliseo. You can get up." He says this talking to himself is a new phenomenon. He has not had tongue biting, incontinence, or post-episode confusion in any of his falls. He has a strong family history of stroke and is concerned this might be related. He has a pacemaker-defibrillator due to a history of paroxysmal A fib, and he is on his third pacemaker, this one installed in May 2017. He has not experienced any defibrillation episodes since April 2018. He also has significant chronic back pain and spasming which he says causes 10/10 pain without medication and 6/10 pain with oxycodone-acetaminophen and hydromorphone. Constitutional: no fever, no chills and no fatigue Respiratory: no cough and no dyspnea Cardiovascular: + lightheadedness; no chest pain, no dyspnea, no dyspnea on exertion, no palpitations and no syncope Gastrointestinal: no abdominal pain, no nausea, no vomiting, no dysphagia, no constipation and no diarrhea/loose stools Musculoskeletal: + back pain Neurologic: no headache(s) and no confusion Physical Exam Vital Signs (Past 24 Hours): Last Vital Signs Temp 36.6 C 09/15/18 11:43 Pulse 69 09/15/18 11:43 Resp 18 09/15/18 11:43 BP 105/67 09/15/18 11:43 Pulse Ox 90 09/15/18 11:43 Constitutional: WD/WN, vitals as above Eyes: PERRL, conjunctivae normal, anicteric sclerae ENMT: external ear and nose normal, oropharynx normal Respiratory: normal respiratory effort, lungs clear to auscultation Cardiovascular: RRR, no murmur, no edema (borderline tachycardia on exam) Gastrointestinal (Abdomen): normal bowel sounds, soft, nontender, no hepatos plenomegaly Inspection/Auscultation: + abdominal wall ecchymosis (bruising on RUQ abdomen re: falling and hitting dresser yesterday) Skin: no rashes, warm and dry
[2018-09-15] MEDS ORDERED: DIGOXIN 0.125 MG TAB PO SCH (16:00)
[2018-09-15] MEDS: SPIRONOLACTONE 25 MG TAB PO SCH (16:43)
--- NOTE | 2018-09-15 17:15 | Hospitalist Progress Note ---
Date of Service September 15, 2018 Assessment & Plan (1) Syncope: most likely due to orthostatic hypotension no events on the monitor has issues with hypotension and volume depletion in the past PT/OT evaluations decrease Torsemide, stop Digoxin add compression stockings to keep more blood centralized (2) Elevated INR: continue on Eliquis repeat INR tomorrow (3) Chronic systolic (congestive) heart failure: Patient appears euvolemic, likely dry will decrease diuretic dose stop Digoxin For history of coronary disease he is maintained on aspirin and Plavix as well as atorvastatin 80 he cannot tolerate an RALPH inhibitor and ARB due to his lower blood pressure With his cardiomyopathy has both a history of V. fib and also paroxysmal atrial fibrillation he is also maintained on amiodarone (4) Chronic low back pain: Patient has chronic low back patient is typically takes oxycodone will add Baclofen TID for spasms (5) Atrial fibrillation: Patient will remain on carvedilol 3.25, digoxin stopped Eliquis Amiodarone dose is confirmed to be 200 twice daily (6) COPD (chronic obstructive pulmonary disease): Patient COPD has been stable for this patient takes inhaled medications of Advair Combivent and as needed albuterol (7) Depression: Patient takes sertraline 150 mg every morning, and quetiapine Subjective patient feeling better today, less weakness and less dizziness walking in the room but still unsteady discussed with Dr. Guerra, recommends decreasing Torsemide dose, stopping Digoxin reviewed labs, stable patient with back pain, appears to be due to spasms, will add Baclofen TID Review of Systems Review of Systems: All systems reviewed & are unremarkable except as noted in HPI & below Constitutional: + weakness; no fever Respiratory: no cough and no dyspnea Cardiovascular: + lightheadedness and + syncope; no chest pain and no palpitations Musculoskeletal: + back pain Physical Exam Constitutional: WD/WN, vitals as above Eyes: PERRL, conjunctivae normal, anicteric sclerae ENMT: external ear and nose normal, oropharynx normal Neck: trachea midline, no thyromegaly Respiratory: normal respiratory effort, lungs clear to auscultation Cardiovascular: RRR, no murmur, no edema Gastrointestinal (Abdomen): normal bowel sounds, soft, nontender, no hepatosplenomegaly Musculoskeletal: no cyanosis or clubbing, extremities motor strength 5/5 Spine: + limited thoraco-lumbar ROM (paraspinal muscle tenderness, tight muscles) Skin: no rashes, warm and dry Neurologic: patellar DTR's 2+ bilat, sensation intact and PERRL, EOMI, accommodation nl, no face palsy, no dysarthria Psychiatric: A+Ox3, euthymic affect Lymphatic: no cervical or axillary lymphadenopathy Results & Data Vital Signs (Past 12 Hours) Vital Signs Temp Pulse Pulse Pulse Resp BP Pulse Ox 09/15/18 16:43 75 09/15/18 15:53 36.5 C 61 18 94/45 L 91 09/15/18 11:43 36.6 C 69 18 105/67 90 09/15/18 08:01 36.7 C 90 19 101/71 95 09/15/18 08:00 75 Laboratory Results Laboratory Results - last 24 hr 09/14/18 09/14/18 09/14/18 18:45 18:45 18:45 WBC 8.04 RBC 4.44 L Hgb 15.0 Hct 43.5 MCV 98.0 MCH 33.8 MCHC 34.5 RDW Std Deviation 58.9 H RDW Coeff of Julian 16.5 H Plt Count 281 MPV 10.6 H Immature Gran % (Auto) 0.9 Neut % (Auto) 64.0 Lymph % (Auto) 23.3 [place] % (Auto) 10.7 Eos % (Auto) 0.7 Baso % (Auto) 0.4 Immature Gran # (Auto) 0.07 H Neut # (Auto) 5.15 Lymph # (Auto) 1.87 [place] # (Auto) 0.86 H Eos # (Auto) 0.06 Baso # (Auto) 0.03 PT 27.5 H INR 2.9 H Sodium 136 Potassium Chloride 97 L Carbon Dioxide 29 Anion Gap 10.0 BUN 28 H Creatinine 1.75 H Est Cr Clr Drug Dosing 59.1 Est GFR ( Amer) 48.3 Est GFR (Non-Af Amer) 41.7 BUN/Creatinine Ratio 16.0 Glucose 102 H Calcium 8.5 Total Bilirubin 0.3 AST ALT 23 Alkaline Phosphatase 80 Troponin I < 0.015 Total Protein 7.5 Albumin 3.6 Globulin 3.9 Albumin/Globulin Ratio 0.9 Lipase 124 Specimen Hemolysis Digoxin 09/14/18 09/14/18 09/15/18 18:45 19:57 05:46 WBC RBC Hgb Hct MCV MCH MCHC RDW Std Deviation RDW Coeff of Julian Plt Count MPV Immature Gran % (Auto) Neut % (Auto) Lymph % (Auto) [place] % (Auto) Eos % (Auto) Baso % (Auto) Immature Gran # (Auto) Neut # (Auto) Lymph # (Auto) [place] # (Auto) Eos # (Auto) Baso # (Auto) PT INR Sodium 136 Potassium 3.3 L 2.7 L D Chloride 92 L Carbon Dioxide 35 H Anion Gap 9.0 BUN 31 H Creatinine 1.72 H Est Cr Clr Drug Dosing 59.0 Est GFR ( Amer) 49.3 Est GFR (Non-Af Amer) 42.6 BUN/Creatinine Ratio 18.0 Glucose 89 Calcium 8.9 Total Bilirubin AST 24 ALT Alkaline Phosphatase Troponin I Total Protein Albumin Globulin Albumin/Globulin Ratio Lipase Specimen Hemolysis Digoxin 0.8 Medications Administered Current Inpatient Medications Acetaminophen (Tylenol) 1,000 mg PO Q6H PRN PRN Reason: Pain Stop: 10/14/18 21:41 Albuterol (Combivent Respimat) 1 puffs INH QID [facility] Stop: 10/14/18 21:41 Last Admin: 09/15/18 16:44 Dose: 1 puffs Documented by: Albuterol (Ventolin Hfa) 2 puffs INH Q6H PRN PRN Reason: Shortness Of Breath Stop: 10/14/18 21:41 Last Admin: 09/14/18 23:11 Dose: 2 puffs Documented by: Amiodarone HCl (Cordarone) 200 mg PO BID [facility] Stop: 10/14/18 21:41 Last Admin: 09/15/18 07:31 Dose: 200 mg Documented by: Apixaban (Eliquis) 5 mg PO BID [facility] Stop: 10/14/18 21:41 Last Admin: 09/15/18 07:29 Dose: 5 mg Documented by: Aspirin (Ecotrin Ectab) 81 mg PO QAM [facility] Stop: 10/15/18 08:59 Last Admin: 09/15/18 07:30 Dose: 81 mg Documented by: Atorvastatin Calcium (Lipitor) 80 mg PO HS [facility] Stop: 10/14/18 21:41 Last Admin: 09/14/18 23:07 Dose: 80 mg Documented by: Baclofen (Lioresal) 10 mg PO TID [facility] Stop: 10/15/18 13:59 Last Admin: 09/15/18 14:32 Dose: 10 mg Documented by: Buspirone HCl (Buspar) 15 mg PO TID [facility] Stop: 10/14/18 21:41 Last Admin: 09/15/18 14:33 Dose: 15 mg Documented by: Carvedilol (Coreg) 3.125 mg PO BID [facility] Stop: 10/14/18 21:41 Last Admin: 09/15/18 07:29 Dose: 3.125 mg Documented by: Cetirizine HCl (Zyrtec) 10 mg PO DAILY [facility] Stop: 10/15/18 08:59 Last Admin: 09/15/18 07:30 Dose: 10 mg Documented by: Clopidogrel Bisulfate (Plavix) 75 mg PO QAM [facility] Stop: 10/15/18 08:59 Last Admin: 09/15/18 07:31 Dose: 75 mg Documented by: Diclofenac Sodium (Voltaren 1% Top) 1 appln EXT QID PRN PRN Reason: Pain Stop: 10/14/18 21:41 Digoxin (Lanoxin) 0.125 mg PO DAILY@1600 [facility] Stop: 10/15/18 15:59 Last Admin: 09/15/18 16:43 Dose: 0.125 mg Documented by: Docusate Sodium (Colace) 200 mg PO HS [facility] Stop: 10/14/18 21:41 Last Admin: 09/14/18 23:08 Dose: 200 mg Documented by: Promethazine HCl 6.25 mg/ (Sodium Chloride) 50.25 mls @ 201 mls/hr IV Q6H PRN PRN Reason: Nausea And Vomiting Stop: 10/14/18 20:45 Miscellaneous (Order Awaiting Action) 1 ea N/A QS [facility] Stop: 10/15/18 00:00 Last Admin: 09/15/18 16:27 Dose: Not Given Documented by: [facility]ivit[facility] ([facility] Tab) [facility]: 10/15/18 08:59 Last Admin: 09/15/18 07:31 Dose: 1 tab Documented by: Ondansetron HCl (Zofran) 4 mg IV Q4H PRN PRN Reason: Nausea Stop: 10/14/18 21:41 Ondansetron HCl (Zofran) 4 mg PO QID PRN PRN Reason: Nausea Stop: 10/14/18 21:41 Last Admin: 09/15/18 07:29 Dose: 4 mg Documented by: Oxycodone/Acetaminophen (Percocet 10/325mg) 1 tab PO Q4H PRN PRN Reason: Pain Stop: 09/28/18 21:41 Last Admin: 09/15/18 16:42 Dose: 1 tab Documented by: Pantoprazole Sodium (Protonix) 40 mg PO QAM [facility] Stop: 10/15/18 08:59 Last Admin: 09/15/18 07:32 Dose: 40 mg Documented by: Polyethylene Glycol (Miralax Powder Packet) 17 gm PO DAILY PRN PRN Reason: Constipation Stop: 10/14/18 21:41 Last Admin: 09/15/18 14:36 Dose: 17 gm Documented by: Quetiapine Fumarate (Seroquel) 200 mg PO HS [facility] Stop: 10/14/18 21:41 Last Admin: 09/14/18 23:07 Dose: 200 mg Documented by: Ranitidine HCl (Zantac) 150 mg PO Q12 [facility] Stop: 10/14/18 21:41 Last Admin: 09/15/18 07:29 Dose: 150 mg Documented by: Fluticasone/Salmeterol (Advair Diskus 250/50) 1 puffs INH BID [facility] Stop: 10/14/18 21:41 Last Admin: 09/15/18 07:27 Dose: 1 puffs Documented by: Sertraline HCl (Zoloft) 150 mg PO QAM [facility] Stop: 10/15/18 08:59 Last Admin: 09/15/18 07:31 Dose: 150 mg Documented by: Spironolactone (Aldactone) 50 mg PO 1600 [facility] Stop: 10/15/18 15:59 Last Admin: 09/15/18 16:43 Dose: 50 mg Documented by: Torsemide (Demadex) 20 mg PO Q2D@0900,1700 [facility] Stop: 10/15/18 08:59 Last Admin: 09/15/18 16:43 Dose: 20 mg Documented by: Torsemide (Demadex) 40 mg PO Q2D@0900 [facility] Stop: 10/16/18 08:59 Torsemide (Demadex) 20 mg PO Q2D@1700 [facility] Stop: 10/14/18 22:59 Last Admin: 09/14/18 23:20 Dose: Not Given Documented by: (1) Syncope Syncope type: unspecified Qualified Code(s): R55 - Syncope and collapse
[2018-09-15] MEDS: DOCUSATE SODIUM 100 MG CAP PO SCH (20:28)
[2018-09-15] MEDS: ATORVASTATIN 40 MG TAB PO SCH (20:29)
[2018-09-15] MEDS: QUETIAPINE FUMARATE 100 MG TABLET PO SCH (20:30)
[2018-09-16] MEDS: ASTELIN - ORDER AWAITING ACTION SCH ×4 (00:08→23:39)
[2018-09-16] MEDS: OXYCODONE/ACETAMINOPHEN 10-325 TAB PO PRN ×5 (03:16→21:03)
[2018-09-16 06:45] LABS: Hematocrit (blood only) 41.6 % (42-52); Hemoglobin 14.3 g/dL (14.0-18.0); Mean Corpuscular Hgb Conc 34.4 g/dL (32-36); Mean Corpuscular Volume 98.1 fL (80-100); Mean Platelet Volume 9.9 fL (7.4-10.4); Platelet Count 225 K/uL (130-400); RDW Coefficient of Variation 16.6 % (11.5-14.5); RDW Standard Deviation 59.7 fL (36.4-46.3); Red Blood Count 4.24 M/uL (4.7-6.1); White Blood Count 5.66 K/uL (4.8-10.8)
[2018-09-16 07:04] LABS: INR 2.2 (0.9-1.1); Prothrombin Time 21.7 Seconds (9.0-12.0)
[2018-09-16 07:17] LABS: Creatinine Clr Calc Pharmacy 64.9 ml/min; Est GFR (African American) 55.1; Est GFR (Non-African American) 47.5
[2018-09-16] MEDS: ASPIRIN 81 MG ECTAB PO SCH (08:17)
[2018-09-16] MEDS: SERTRALINE HCL 50 MG TABLET PO SCH (08:17)
[2018-09-16] MEDS: AMIODARONE 200 MG TAB PO SCH ×2 (08:18→20:37)
[2018-09-16] MEDS: CLOPIDOGREL BISULFATE 75 MG TAB PO SCH (08:18)
[2018-09-16] MEDS: APIXABAN 5 MG TABLET PO SCH ×2 (08:18→20:38)
[2018-09-16] MEDS: CARVEDILOL 3.125 MG TAB PO SCH ×2 (08:19→20:37)
[2018-09-16] MEDS: BACLOFEN 10 MG TAB PO SCH ×3 (08:20→20:36)
[2018-09-16] MEDS: MULTIVITAMIN TAB PO SCH (08:20)
[2018-09-16] MEDS: PANTOprazole 40 MG TAB PO SCH (08:20)
[2018-09-16] MEDS: IPRATROPIUM BROMIDE/ALBUTEROL respimat INH INH SCH ×4 (08:21→20:32)
[2018-09-16] MEDS: FLUTICASONE/SALMETEROL 250/50 (ADVAIR) 14 PUFF/1 INHALER INH SCH ×2 (08:21→20:33)
[2018-09-16] MEDS: BusPIRone 15 MG TAB PO SCH ×3 (08:22→20:37)
[2018-09-16] MEDS ORDERED: TORSEMIDE 10 MG TAB PO SCH (09:00)
[2018-09-16] MEDS ORDERED: POTASSIUM CHLORIDE 40 MEQ in SODIUM CHLORIDE 0.9% 1000ML 1,000 ML IV SCH (09:00)
--- NOTE | 2018-09-16 09:00 | Cardiology Progress Note ---
Date of Service September 16, 2018 Assessment & Plan (1) Syncope: This most likely represents orthostatic hypotension. He has relative hypotension at baseline. He seems to be doing slightly better. I think a reduction in his outpatient diuretic regimen to torsemide 20 mg twice daily would be a good idea. He will continue to follow with us in the clinic quite closely for adjustments in his medical regimen. Potassium was repleted yesterday. We will need to monitor this closely as well. (2) Chronic systolic (congestive) heart failure: Well compensated in this regard. (3) Hypokalemia: Likely due to over diuresis. He has been supplemented. In the past he was severely hypokalemic and suffered ventricular fibrillation as result. (4) Coronary artery disease: No current symptoms to suggest angina or coronary insufficiency. Cardiac biomarkers normal at the time of admission. (5) Atrial fibrillation: Currently in sinus rhythm. No arrhythmias detected through his device interrogation today. Previously was on warfarin but presented with supratherapeutic INR. Recently switched to Eliquis. Subjective This morning patient clinically feeling better. His primary difficulty currently is back pain. He did ambulate around the room briefly yesterday. He states he had a very mild sense of dizziness but this is much improved since admission. His main complaint again was simply back discomfort. No orthopnea. He reportedly had an element of hypoxia last evening and use of supplemental oxygen over the course of the night. Review of Systems Review of Systems: Per HPI Physical Exam Physical Exam: The patient is alert and oriented. Mood and affect appeared normal. He answered all questions appropriately. HEENT: Pupils are equal and reactive to light and accommodation. Extraocular movements are intact. The sclerae are anicteric. Neuro: Cranial nerves intact Neck: Patient's neck is supple. He has palpable carotid pulses bilaterally without bruits on auscultation. There is no evidence of jugular venous distention. The thyroid is not enlarged. Lungs: Clear to auscultation bilaterally. He has good air movement without use of accessory muscles. No rales wheezes or rhonchi. Cardiac: Heart demonstrates a regular rate and rhythm. Normal S1 and S2. No murmurs on examination. Pulses: The patient has palpable radial pulses bilaterally that are equal in intensity Extremities: There was no evidence of hypoperfusion. There is no cyanosis or clubbing. There is no edema. Skin: I did not appreciate any rashes on examination today. Results & Data Vital Signs (Past 12 Hours) Vital Signs Temp Pulse Resp BP BP Pulse Ox 09/16/18 07:09 37.0 C 78 18 82/58 L 93 09/16/18 03:35 36.6 C 71 16 100/69 91 09/15/18 23:30 36.4 C L 71 18 106/72 92 Laboratory Results Abnormal Lab Results 09/16/18 09/16/18 09/16/18 06:26 06:26 06:26 WBC 5.66 RBC 4.24 L Hgb 14.3 Hct 41.6 L MCV 98.1 MCH 33.7 MCHC 34.4 RDW Std Deviation 59.7 H RDW Coeff of Julian 16.6 H Plt Count 225 MPV 9.9 PT 21.7 H INR 2.2 H Sodium 136 Potassium Chloride 96 L Carbon Dioxide 34 H Anion Gap 6.0 BUN 35 H Creatinine 1.57 H Est Cr Clr Drug Dosing 64.9 Est GFR ( Amer) 55.1 Est GFR (Non-Af Amer) 47.5 BUN/Creatinine Ratio 22.0 H Glucose 101 H Calcium 9.0 09/16/18 07:28 WBC RBC Hgb Hct MCV MCH MCHC RDW Std Deviation RDW Coeff of Julian Plt Count MPV PT INR Sodium Potassium 3.5 D Chloride Carbon Dioxide Anion Gap BUN Creatinine Est Cr Clr Drug Dosing Est GFR ( Amer) Est GFR (Non-Af Amer) BUN/Creatinine Ratio Glucose Calcium ECG Additional Comments: Telemetry demonstrated normal sinus rhythm (1) Syncope Syncope type: unspecified Qualified Code(s): R55 - Syncope and collapse
[2018-09-16] MEDS: CETIRIZINE HCL 10 MG TABLET PO SCH (09:58)
[2018-09-16] MEDS: POTASSIUM CHLORIDE 20 MEQ TABCR PO SCH ×2 (09:58→20:38)
[2018-09-16] MEDS: POLYETHYLENE (MIRALAX) 17 GM PACK PO SCH ×2 (14:05→20:40)
--- NOTE | 2018-09-16 14:40 | Hospitalist Progress Note ---
Date of Service September 16, 2018 Assessment & Plan (1) Syncope: most likely due to orthostatic hypotension no events on the monitor has issues with hypotension and volume depletion in the past PT/OT evaluations will hold Torsemide for now, stop Digoxin add compression stockings to keep more blood centralized (2) Elevated INR: continue on Eliquis repeat INR today is 2.2 recheck in the morning was likely taking Coumadin by accident (3) Chronic systolic (congestive) heart failure: Patient appears euvolemic, likely dry will decrease diuretic dose chronically, actually hold for now give some gentle fluids today stop Digoxin For history of coronary disease he is maintained on aspirin and Plavix as well as atorvastatin 80 he cannot tolerate an RALPH inhibitor and ARB due to his lower blood pressure With his cardiomyopathy has both a history of V. fib and also paroxysmal atrial fibrillation he is also maintained on amiodarone patient with history of poor compliance, sometimes takes too much diuretic poor prognosis, frequent readmissions has been considered for heart transplant in the past but patient has very poor compliance, not a great candidate heart failure clinic has brought up palliative care in the office difficult to get the patient to see palliative in outpatient setting will consult them for code discussion, goals of care (4) Chronic low back pain: Patient has chronic low back patient is typically takes oxycodone will add Baclofen TID for spasms improvement with the Baclofen, will increase dose to 20mg TID tomorrow (5) Atrial fibrillation: Patient will remain on carvedilol 3.25, digoxin stopped Eliquis for anticoagulation Amiodarone dose is confirmed to be 200 twice daily (6) COPD (chronic obstructive pulmonary disease): Patient COPD has been stable for this patient takes inhaled medications of Advair Combivent and as needed albuterol (7) Depression: Patient takes sertraline 150 mg every morning, and quetiapine (8) Acute kidney injury: CR was up to 1.7 on admission trending down to 1.5 today likely from low volume status, dehydrated repeat Cr tomorrow, give gentle fluids today (9) CKD (chronic kidney disease), stage II: Subjective still with back pain but said that the Baclofen helped, wants higher dose said that we would need to titrate up slowly patient with more energy and better balance today, no falls blood pressure low this morning, holding diuretics and giving some fluids discussed with cardiology, suggest palliative care consult to discuss goals of care reviewed labs, INR down to 2.2 CBC normal Cr improved to 1.57 from 1.7 baseline Cr is closer to 1.0 making good urine Review of Systems Review of Systems: All systems reviewed & are unremarkable except as noted in HPI & below Constitutional: + fatigue and + weakness; no fever and no sweats Respiratory: + dyspnea on exertion; no cough and no dyspnea Cardiovascular: no chest pain, no palpitations, no syncope and no edema Musculoskeletal: + back pain Physical Exam Constitutional: WD/WN, vitals as above Eyes: PERRL, conjunctivae normal, anicteric sclerae ENMT: external ear and nose normal, oropharynx normal Neck: trachea midline, no thyromegaly Respiratory: normal respiratory effort, lungs clear to auscultation Cardiovascular: RRR, no murmur, no edema Gastrointestinal (Abdomen): normal bowel sounds, soft, nontender, no hepatosplenomegaly Musculoskeletal: no cyanosis or clubbing, extremities motor strength 5/5 Spine: + limited thoraco-lumbar ROM (paraspinal muscle tenderness, tight muscles) Skin: no rashes, warm and dry Neurologic: patellar DTR's 2+ bilat, sensation intact and PERRL, EOMI, accommodation nl, no face palsy, no dysarthria Psychiatric: A+Ox3, euthymic affect Lymphatic: no cervical or axillary lymphadenopathy Results & Data Vital Signs (Past 12 Hours) Vital Signs Temp Pulse Pulse Resp BP Pulse Ox 09/16/18 11:38 36.4 C L 82 18 103/71 92 09/16/18 07:09 37.0 C 78 18 82/58 L 93 09/16/18 07:00 84 09/16/18 03:35 36.6 C 71 16 100/69 91 Laboratory Results Laboratory Results - last 24 hr 09/16/18 09/16/18 09/16/18 06:26 06:26 06:26 WBC 5.66 RBC 4.24 L Hgb 14.3 Hct 41.6 L MCV 98.1 MCH 33.7 MCHC 34.4 RDW Std Deviation 59.7 H RDW Coeff of Julian 16.6 H Plt Count 225 MPV 9.9 PT 21.7 H INR 2.2 H Sodium 136 Potassium Chloride 96 L Carbon Dioxide 34 H Anion Gap 6.0 BUN 35 H Creatinine 1.57 H Est Cr Clr Drug Dosing 64.9 Est GFR ( Amer) 55.1 Est GFR (Non-Af Amer) 47.5 BUN/Creatinine Ratio 22.0 H Glucose 101 H Calcium 9.0 09/16/18 07:28 WBC RBC Hgb Hct MCV MCH MCHC RDW Std Deviation RDW Coeff of Julian Plt Count MPV PT INR Sodium Potassium 3.5 D Chloride Carbon Dioxide Anion Gap BUN Creatinine Est Cr Clr Drug Dosing Est GFR ( Amer) Est GFR (Non-Af Amer) BUN/Creatinine Ratio Glucose Calcium Medications Administered Current Inpatient Medications Acetaminophen (Tylenol) 1,000 mg PO Q6H PRN PRN Reason: Pain Stop: 10/14/18 21:41 Albuterol (Combivent Respimat) 1 puffs INH QID [facility] Stop: 10/14/18 21:41 Last Admin: 09/16/18 14:05 Dose: 1 puffs Documented by: Albuterol (Ventolin Hfa) 2 puffs INH Q6H PRN PRN Reason: Shortness Of Breath Stop: 10/14/18 21:41 Last Admin: 09/14/18 23:11 Dose: 2 puffs Documented by: Amiodarone HCl (Cordarone) 200 mg PO BID [facility] Stop: 10/14/18 21:41 Last Admin: 09/16/18 08:18 Dose: 200 mg Documented by: Apixaban (Eliquis) 5 mg PO BID [facility] Stop: 10/14/18 21:41 Last Admin: 09/16/18 08:18 Dose: 5 mg Documented by: Aspirin (Ecotrin Ectab) 81 mg PO QAM [facility] Stop: 10/15/18 08:59 Last Admin: 09/16/18 08:17 Dose: 81 mg Documented by: Atorvastatin Calcium (Lipitor) 80 mg PO HS [facility] Stop: 10/14/18 21:41 Last Admin: 09/15/18 20:29 Dose: 80 mg Documented by: Baclofen (Lioresal) 10 mg PO TID [facility] Stop: 10/15/18 13:59 Last Admin: 09/16/18 14:06 Dose: 10 mg Documented by: Buspirone HCl (Buspar) 15 mg PO TID [facility] Stop: 10/14/18 21:41 Last Admin: 09/16/18 14:06 Dose: 15 mg Documented by: Carvedilol (Coreg) 3.125 mg PO BID [facility] Stop: 10/14/18 21:41 Last Admin: 09/16/18 08:19 Dose: 3.125 mg Documented by: Cetirizine HCl (Zyrtec) 10 mg PO DAILY [facility] Stop: 10/15/18 08:59 Last Admin: 09/16/18 09:58 Dose: 10 mg Documented by: Clopidogrel Bisulfate (Plavix) 75 mg PO QAM [facility] Stop: 10/15/18 08:59 Last Admin: 09/16/18 08:18 Dose: 75 mg Documented by: Diclofenac Sodium (Voltaren 1% Top) 1 appln EXT QID PRN PRN Reason: Pain Stop: 10/14/18 21:41 Docusate Sodium (Colace) 200 mg PO HS [facility] Stop: 10/14/18 21:41 Last Admin: 09/15/18 20:28 Dose: 200 mg Documented by: Promethazine HCl 6.25 mg/ (Sodium Chloride) 50.25 mls @ 201 mls/hr IV Q6H PRN PRN Reason: Nausea And Vomiting Stop: 10/14/18 20:45 Potassium Chloride 40 meq/ (Sodium Chloride) 1,020 mls @ 100 mls/hr IV .[id number] [facility] Stop: 09/16/18 19:11 Last Admin: 09/16/18 10:05 Dose: 100 mls/hr Documented by: Miscellaneous (Order Awaiting Action) 1 ea N/A QS [facility] Stop: 10/15/18 00:00 Last Admin: 09/16/18 08:09 Dose: Not Given Documented by: Multivitamins (Multivitamin Tab) 1 tab PO QAM [facility] Stop: 10/15/18 08:59 Last Admin: 09/16/18 08:20 Dose: 1 tab Documented by: Ondansetron HCl (Zofran) 4 mg IV Q4H PRN PRN Reason: Nausea Stop: 10/14/18 21:41 Ondansetron HCl (Zofran) 4 mg PO QID PRN PRN Reason: Nausea Stop: 10/14/18 21:41 Last Admin: 09/15/18 07:29 Dose: 4 mg Documented by: Oxycodone/Acetaminophen (Percocet 10/325mg) 1 tab PO Q4H PRN PRN Reason: Pain Stop: 09/28/18 21:41 Last Admin: 09/16/18 11:53 Dose: 1 tab Documented by: Pantoprazole Sodium (Protonix) 40 mg PO QAM [facility] Stop: 10/15/18 08:59 Last Admin: 09/16/18 08:20 Dose: 40 mg Documented by: Polyethylene Glycol (Miralax Powder Packet) 17 gm PO TID [facility] Stop: 10/16/18 13:59 Last Admin: 09/16/18 14:05 Dose: 17 gm Documented by: Potassium Chloride (Klor-Con M20) 40 meq PO BID [facility] Stop: 10/16/18 08:59 Last Admin: 09/16/18 09:58 Dose: 40 meq Documented by: Quetiapine Fumarate (Seroquel) 200 mg PO HS [facility] Stop: 10/14/18 21:41 Last Admin: 09/15/18 20:30 Dose: 200 mg Documented by: Ranitidine HCl (Zantac) 150 mg PO Q12 [facility] Stop: 10/14/18 21:41 Last Admin: 09/16/18 08:20 Dose: 150 mg Documented by: Fluticasone/Salmeterol (Advair Diskus 250/50) 1 puffs INH BID [facility] Stop: 10/14/18 21:41 Last Admin: 09/16/18 08:21 Dose: 1 puffs Documented by: Sertraline HCl (Zoloft) 150 mg PO QAM [facility] Stop: 10/15/18 08:59 Last Admin: 09/16/18 08:17 Dose: 150 mg Documented by: Spironolactone (Aldactone) 50 mg PO 1600 [facility] Stop: 10/15/18 15:59 Last Admin: 09/15/18 16:43 Dose: 50 mg Documented by: (1) Syncope Syncope type: unspecified Qualified Code(s): R55 - Syncope and collapse
[2018-09-16] MEDS: SPIRONOLACTONE 25 MG TAB PO SCH (16:57)
[2018-09-16] MEDS: DOCUSATE SODIUM 100 MG CAP PO SCH (20:35)
[2018-09-16] MEDS: QUETIAPINE FUMARATE 100 MG TABLET PO SCH (20:38)
[2018-09-16] MEDS: ATORVASTATIN 40 MG TAB PO SCH (20:40)
[2018-09-17] MEDS: OXYCODONE/ACETAMINOPHEN 10-325 TAB PO PRN (01:11)
[2018-09-17 06:53] LABS: INR 1.7 (0.9-1.1); Prothrombin Time 17.1 Seconds (9.0-12.0)
[2018-09-17 07:26] LABS: BUN Creatinine Ratio 20.6 (10-20); Calcium 8.7 mg/dl (8.5-10.1); Creatinine Clr Calc Pharmacy 83.9 ml/min; Est GFR (African American) 74.7; Est GFR (Non-African American) 64.5; Potassium 4.5 mmol/L (3.5-5.1)
[2018-09-17] MEDS: BACLOFEN 10 MG TAB PO SCH (07:52)
[2018-09-17] MEDS: AMIODARONE 200 MG TAB PO SCH (07:52)
[2018-09-17] MEDS: POLYETHYLENE (MIRALAX) 17 GM PACK PO SCH ×2 (07:52→12:42)
[2018-09-17] MEDS: FLUTICASONE/SALMETEROL 250/50 (ADVAIR) 14 PUFF/1 INHALER INH SCH (07:52)
[2018-09-17] MEDS: IPRATROPIUM BROMIDE/ALBUTEROL respimat INH INH SCH ×2 (07:52→12:42)
[2018-09-17] MEDS: CLOPIDOGREL BISULFATE 75 MG TAB PO SCH (07:52)
[2018-09-17] MEDS: MULTIVITAMIN TAB PO SCH (07:53)
[2018-09-17] MEDS: BusPIRone 15 MG TAB PO SCH ×2 (07:53→12:42)
[2018-09-17] MEDS: PANTOprazole 40 MG TAB PO SCH (07:53)
[2018-09-17] MEDS: ASPIRIN 81 MG ECTAB PO SCH (07:53)
[2018-09-17] MEDS: CARVEDILOL 3.125 MG TAB PO SCH (07:53)
[2018-09-17] MEDS: CETIRIZINE HCL 10 MG TABLET PO SCH (07:53)
[2018-09-17] MEDS: SERTRALINE HCL 50 MG TABLET PO SCH (07:53)
[2018-09-17] MEDS: POTASSIUM CHLORIDE 20 MEQ TABCR PO SCH (07:53)
[2018-09-17] MEDS: APIXABAN 5 MG TABLET PO SCH (07:54)
[2018-09-17] MEDS ORDERED: TORSEMIDE 10 MG TAB PO SCH (09:00)
[2018-09-17] MEDS: ASTELIN - ORDER AWAITING ACTION SCH (09:29)
--- NOTE | 2018-09-17 11:17 | Palliative Care Consultation ---
Date of Consultation September 17, 2018 Assessment & Plan (1) Goals of care, counseling/discussion: -57 year old male with PMH chronic systolic heart failure with EF 20-25%, CKD stage II, and other problems presented to the hospital with c/o syncope. Workup revealed slight dehydration, possibly over-diuresed. Patient is on torsemide as an outpatient: 20mg BID on odd days, 20mg in AM on even days, 40mg in PM on even days. Also on Aldactone 50mg daily. Most recent echocardiogram in April 2018 showed EF 20-25%, severely reduced LV systolic function, global hypokinesis with akinesis of proximal and mid-inferoposterior and adjacent inferoseptum. Patient has long history of questionable compliance with his medications. Has been considered for heart transplant in the past but likely not a candidate due to his complicated social issues and nonadherence to medical treatment plan. He lives in a boarding home and has no means of transportation. The yard labor supervisor of [employer] apparently does drive him to and from appointments. Patient is also involved in the CHF clinic. Patient has had many readmissions in the last six months, mostly recently for syncope and actually being on the dry side. Palliative care is consulted to discuss code status and goals of care. -Met with patient in room 236 this morning. Patient is awake, alert and oriented x4, feels well today. -Introduced palliative care. Patient stated, "I don't think I'm that bad off am I?" I assured patient that palliative care is not only end-of-life care, but rather care focused on a patient's physical and emotional symptoms, who's dealing with serious illness. Patient became paranoid and said he thought we weren't telling him something. Patient did relax some and talked to me. Stated that he does think about these things and is "working on the paperwork (living will)." He declined wanting to do it while in the hospital, but I did offer that service to him. Of note, patient also has a lot of difficulty getting his thoughts out in words, searches for words. -Patient states he wants to remain a full code at this time, however, he would not want his life prolonged on machines if he wasn't expected to recover. At this time in his life, he says he has a good quality of life and enjoys spending time with his daughter Charisma and granddaughter Ayaan. -Patient would want his daughter Charisma Morgan to be his primary decision maker if he was unable to do so. -Patient has no current symptom management needs at this time and did not seem interested in following with palliative care as an outpatient. -Will follow peripherally for now. Please contact me with any further palliative care needs. (2) Syncope: Syncope type: unspecified Qualified Code(s): R55 - Syncope and collapse (3) Chronic systolic (congestive) heart failure: History of Present Illness Reason for Consultation: Code status, goals of care Requesting Physician: Dr. Martin Attending Physician: Jose Martin, DO History of Present Illness This 57 year old male with PMH chronic systolic heart failure with EF 20-25%, CKD stage II, and other problems presented to the hospital with c/o syncope. Workup revealed slight dehydration, possibly over-diuresed. Patient is on torsemide as an outpatient: 20mg BID on odd days, 20mg in AM on even days, 40mg in PM on even days. Also on Aldactone 50mg daily. Most recent echocardiogram in April 2018 showed EF 20-25%, severely reduced LV systolic function, global hypokinesis with akinesis of proximal and mid-inferoposterior and adjacent inferoseptum. Patient has long history of questionable compliance with his medications. Has been considered for heart transplant in the past but likely not a candidate due to his complicated social issues and nonadherence to medical treatment plan. He lives in a boarding home and has no means of transportation. The yard labor supervisor of [facility] apparently does drive him to and from appointments. Patient is also involved in the CHF clinic. Patient has had many readmissions in the last six months, mostly recently for syncope and actually being on the dry side. Palliative care is consulted to discuss code status and goals of care. Thank you kindly for this consult. Allergies Allergy/AdvReac Type Severity Reaction Status Date / Time heparin Allergy Severe SEE COMMENT Verified 09/01/18 20:58 Iodinated Contrast- Oral and Allergy Severe swelling, Verified 09/01/18 20:58 IV Dye hives ibuprofen AdvReac Intermediate nausea Verified 09/01/18 20:58 vomiting Home Medications Home Medications Medication Instructions Recorded Confirmed Type aspirin 81 mg PO QAM 03/02/18 09/14/18 History atorvastatin 80 mg PO HS 03/02/18 09/14/18 History azelastine 1 spray INTRANASAL BID PRN 03/02/18 09/14/18 History buspirone 15 mg PO TID 03/02/18 09/14/18 History albuterol sulfate [Ventolin HFA] 2 puff INHALATION Q6H PRN 03/03/18 09/14/18 History clopidogrel 75 mg PO QAM 03/03/18 09/14/18 History cyclobenzaprine 10 mg PO BID PRN 03/03/18 09/14/18 History loratadine [Claritin] 10 mg PO QAM 03/03/18 09/14/18 History melatonin 10 mg PO HS 03/03/18 09/14/18 History multivitamin [Daily Multiple] 1 tab PO QAM 03/03/18 09/14/18 History oxycodone-acetaminophen 1 tab PO Q4H PRN 03/03/18 09/14/18 History pantoprazole 40 mg PO QAM 03/03/18 09/14/18 History polyethylene glycol 3350 [Miralax] 17 g PO DAILY PRN 03/03/18 09/14/18 History quetiapine 200 mg PO HS 03/03/18 09/14/18 History ranitidine HCl 150 mg PO Q12H 03/03/18 09/14/18 History sertraline 150 mg PO QAM 03/03/18 09/14/18 History spironolactone 50 mg PO 1600 03/03/18 09/14/18 History diclofenac sodium [Voltaren] 4 gm TOP QID PRN 03/30/18 09/14/18 History amiodarone 200 mg PO BID #60 tab 04/30/18 09/14/18 Rx acetaminophen [Tylenol Extra 1,000 mg PO Q6H PRN 05/22/18 09/14/18 History Strength] flaxseed oil-omega 3,6,9 1 cap PO 1200 05/22/18 09/14/18 History fluticasone propion-salmeterol 1 puff INHALATION BID 06/22/18 09/14/18 History [Advair Diskus] Calcium Magnesium 0 mg PO DAILY 09/01/18 09/14/18 History Combivent Respimat 1 puff INHALATION TID 09/01/18 09/14/18 History Probiotic 0 mmu cells PO DAILY 09/01/18 09/14/18 History Zyrtec 10 mg PO DAILY 09/01/18 09/14/18 History carvedilol [Coreg] 3.125 mg PO BID 09/01/18 09/14/18 History coenzyme Q10 [Co Q-10] 200 mg PO DAILY 09/01/18 09/14/18 History docusate sodium [Colace] 200 mg PO HS 09/01/18 09/14/18 History ginkgo biloba 120 mg PO DAILY 09/01/18 09/14/18 History ondansetron HCl [Zofran] 4 mg PO QID PRN 09/01/18 09/14/18 History saw palmetto 0 mg PO BID 09/01/18 09/14/18 History torsemide 20 mg PO BID 09/01/18 09/14/18 History torsemide [Demadex] 20 mg PO UD 09/01/18 09/14/18 History torsemide [Demadex] 40 mg PO UD 09/01/18 09/14/18 History apixaban [Eliquis] 5 mg PO BID #60 tab 09/04/18 09/14/18 Rx Patient History Medical History Anxiety (Chronic) Diastolic CHF (Resolved) Hypotension (Resolved) NSTEMI (non-ST elevated myocardial infarction) (Resolved) Systolic CHF (Resolved) CHF (congestive heart failure) (Resolved) Anemia of chronic disease History of venous thromboembolism History of orthostatic hypotension PVD (peripheral vascular disease) Paroxysmal A-fib COPD (chronic obstructive pulmonary disease) Ischemic cardiomyopathy Cardiomyopathy Presence of combination internal cardiac defibrillator (ICD) and pacemaker Acid reflux Aneurysm pt reports multiple aneurysms of LLE w/ stents Anxiety Atrial fibrillation COPD (chronic obstructive pulmonary disease) CVA (cerebral vascular accident) no residual effects Cardiac LV ejection fraction <20% Collar bone fracture Compression fracture Congestive heart failure DJD (degenerative joint disease) Hepatitis C History of left heart catheterization x10 per pt Hyperlipidemia Kidney disease DELICIA (obstructive sleep apnea) On Coumadin for atrial fibrillation Pacemaker Rib fractures Weakness Surgical History Status post popliteal-distal bypass surgery H/O rotator cuff surgery right S/P insertion of iliac artery stent Family History Other No significant family history Social History Preferred Language: Armenian Communication Ability: Effective Prick Stitcher Required: No Beliefs That Will Affect Care: None marital status: Current Living Situation: Boarding Home current occupational status: disabled Other Information That Helps Us Care for You: No Feels Safe at Home: Yes Safety Concerns: Feels Safe At This Time Smoking Status: Never smoker Do You Dip or Chew Tobacco: No Second Hand Exposure: No Tobacco Cessation Education Requested by Patient: No Hx Alcohol Use: No Hx Substance Use: No Review of Systems Constitutional: no weakness Respiratory: no cough and no dyspnea Cardiovascular: no chest pain Gastrointestinal: no abdominal pain and no nausea Neurologic: no syncope (none since admission) Psychiatric: no anxiety Physical Exam Constitutional: well developed and well nourished; no acute distress ENMT: Ears: no hearing impairment Neck: normal visual inspection Respiratory: normal respiratory effort; no respiratory distress, no labored breathing and no cough Cardiovascular: Rate/Rhythm: regular rate and regular rhythm Extremities: n o edema (wearing PAIGE hose) Neurologic: awake; not confused Psychiatric: Orientation: alert and oriented x 3 Results & Data Vital Signs (Past 12 Hours) Vital Signs Temp Pulse Pulse Resp BP BP Pulse Ox 09/17/18 08:00 79 09/17/18 07:51 71 20 155/83 H 98 09/17/18 07:49 36.4 C L 76 18 134/91 93 09/17/18 03:29 36.4 C L 86 16 106/70 94 09/16/18 23:15 36.9 C 77 18 116/71 93 Time Spent Midlevel 75 minutes with >50% of time spent at bedside with patient discussing his condition, goals of care, and code status.
--- NOTE | 2018-09-17 13:35 | Medical Student Progress Note ---
Date of Service September 17, 2018 Assessment & Plan (1) Syncope: Mr. Morgan's symptoms still seem to fit orthostatic hypertension best, as opposed to vasovagal, seizure, or another pathology. As we have decreased Mr. Morgan's torsemide in the past few days, he seems to be symptomatically improving quite a bit, and looks much better today than earlier in the week. He is on numerous medications and when his torsemide dose is discussed, he seemed confused about the regimen. Changing to 20mg bid should simplify the regimen a bit and that hopefully will help. His BP is notably higher today, even higher than his purported baseline. He has had no lightheadedness today and is ready for discharge. Syncope type: unspecified Qualified Code(s): R55 - Syncope and collapse (2) Chronic systolic (congestive) heart failure: He appears euvolemic on exam today, recommend torsemide 20mg bid which was explained to him again today, continuing ASA. His biomarkers have been normal and he has not had any chest pain or palpitations. He has been a transplant candidate in the past with low EF. Continue to follow with cardiology. (3) Hypokalemia: Potassium trending upward from 2.7 to 3.5 to 4.5 today. Receiving supplemental potassium and decreasing torsemide will likely help. History of hypokalemia leading to V fib. (4) Coronary artery disease: No current chest pain or palpitations with normal biomarkers. No changes at this time. (5) Atrial fibrillation: In sinus rhythm on exam as well as EKG. Pacemaker interrogation Friday was normal with no arrhythmias. On apixaban with most recent INR 1.7; INR was likely high on admission due to accidental warfarin use. (6) Chronic low back pain: Chronic back pain and spasms. On oxycodone-acetaminophen at home, had been on hydromorphone here as well since discontinued. 10mg tid baclofen seems to be helping with spasm pain, and we will increase to 20mg tid baclofen today which he can take outpatient. (7) Depression: Continue sertraline and quetiapine. Disposition: Ready for discharge today. Subjective I came to see Mr. Morgan this morning soon after he saw palliative care and he we had a long conversation about his health and future. He was quite concerned that he was imminently dying and we discussed how that was not the situation at hand, but that there was benefit in talking with palliative care to discuss longer- term goals. After a few minutes of talking and recognizing that he was not imminently dying, Mr. Morgan calmed down and told me that he is symptomatically feeling much better today. Unlike the past few days, he has experienced no lightheadedness today, and he has been able to get up on the first try and able to walk around a bit and feel more active. He has had some difficulty and pain sitting up the past few days, but told me he has been sitting up all morning without difficulty. He is still having some back spasms, but he says they are both less frequent and less severe now on the baclofen, and he is excited about a potential dose increase and about the opportunity to use baclofen outpatient. He says he slept well last night, the best he has slept all week. He is less constipated today and was able to have one small, loose bowel movement this morning. We discussed his blood pressure which he says he measures every day with a baseline in the 80s systolic and today it has been consistently above 100--sometimes well above that in moments of pain--and he is pleased that decreasing the diuresis seems to have helped in that regard. He is also pleased that his potassium has improved. Constitutional: no fever and no chills Respiratory: + cough (productive cough, at baseline); no dyspnea Cardiovascular: no chest pain, no dyspnea, no dyspnea on exertion, no palpitations, no lightheadedness and no syncope Gastrointestinal: no abdominal pain, no vomiting and no constipation Musculoskeletal: + back pain Neurologic: no confusion Physical Exam Vital Signs (Past 24 Hours): Last Vital Signs Temp 36.2 C L 09/17/18 13:11 Pulse 69 09/17/18 13:11 Resp 22 09/17/18 13:11 BP 116/71 09/17/18 13:11 Pulse Ox 94 09/17/18 13:11 Constitutional: WD/WN, vitals as above no acute distress Eyes: PERRL, conjunctivae normal, anicteric sclerae ENMT: external ear and nose normal, oropharynx normal Respiratory: normal respiratory effort, lungs clear to auscultation Cardiovascular: RRR, no murmur, no edema (borderline tachycardia on exam) R ate/Rhythm: regular rhythm Gastrointestinal (Abdomen): normal bowel sounds, soft, nontender, no hepatosplenomegaly Inspection/Auscultation: + abdominal wall ecchymosis (bruising on RUQ abdomen re: falling and hitting dresser Friday) Percussion/Palpation: abdomen soft (Definitely softer than yesterday) Skin: no rashes, warm and dry Psychiatric: A+Ox3, euthymic affect
[2018-09-17] MEDS ORDERED: BACLOFEN 20 MG TAB PO SCH (14:00)
--- NOTE | 2018-09-17 15:48 | Discharge Summary ---
Date of Service September 17, 2018 Admission HPI Per Admitting Provider Patient presents after having an controlled syncopal episode. The patient typically is orthostatic hypotension and gets dizzy at times but he states he had no warning and he just fell to the ground and hit himself. He takes Eliquis for his history of paroxysmal atrial fibrillation. He says this was an unusual event where his typical orthostasis and he is concerned that there is something more significantly wrong with him. Initial evaluation did not show any significant suspicious changes in his lab work as physical exam is consistent with his previous having significant cardiomyopathy and marked orthostasis at times. Admission Exam Per Admitting Provider The patient is in mild chronic daily distress. Different than usual Vital signs as documented. Head exam is unremarkable. normocephalic, atraumatic Neck is with minor jugular venous distension, thyromegaly, or lymphademopathy Lungs are clear to auscultation no rales at the bases Cardiac exam reveals Rhythm is regular. Systolic murmur is heard Abdominal exam reveals normal bowel sounds, no masses, no organomegaly has a bruise on his abdomen from his fall does not appear to be a rectus sheath hematoma Extremities are mildly edematous and both pedal pulses are present Neurologic exam is A&Ox3, no focal deficits, strength is equal bilateral Psychologically seems neither anxious or depressed Skin is warm Dry has a few bruises from his fall Principal Diagnosis Syncope Discharge Exam Constitutional WD/WN, vitals as above Eyes PERRL, conjunctivae normal, anicteric sclerae ENMT external ear and nose normal, oropharynx normal Neck trachea midline, no thyromegaly Respiratory normal respiratory effort, lungs clear to auscultation Cardiovascular RRR, no murmur, no edema Gastrointestinal (Abdomen) normal bowel sounds, soft, nontender, no hepatosplenomegaly Musculoskeletal no cyanosis or clubbing, extremities motor strength 5/5 Spine: + limited thoraco-lumbar ROM (paraspinal muscle tenderness, tight muscles) Skin no rashes, warm and dry Neurologic patellar DTR's 2+ bilat, sensation intact and PERRL, EOMI, accommodation nl, no face palsy, no dysarthria Psychiatric A+Ox3, euthymic affect Lymphatic no cervical or axillary lymphadenopathy Discharge Data Allergies Allergy/AdvReac Type Severity Reaction Status Date / Time heparin Allergy Severe SEE COMMENT Verified 09/18/18 04:17 Iodinated Contrast- Oral and Allergy Severe swelling, Verified 09/18/18 04:17 IV Dye hives ibuprofen AdvReac Intermediate nausea Verified 09/18/18 04:17 vomiting Consultations 09/14/18 20:15 ED Decision to Admit Stat 09/14/18 21:42 Consult Cardiology Routine Consult Case Management - Discharge Planning Routine 09/16/18 14:19 Consult Palliative Care Routine Ordered Studies 09/14/18 18:34 CT head/brain wo con Stat Hospital Course (1) Syncope: most likely due to orthostatic hypotension no events on the monitor has issues with hypotension and volume depletion in the past PT/OT evaluations will hold Torsemide for now, stop Digoxin add compression stockings to keep more blood centralized no episodes since time of admission safe for discharge, reviewed importance of daily weights (2) Elevated INR: continue on Eliquis repeat INR prior to discharge was < 2.0 was likely taking Coumadin by accident stressed that he should no longer be on Coumadin discharge medication list clearly without Coumadin he said he would not take it any more (3) Chronic systolic (congestive) heart failure: Patient appears euvolemic throughout stay will decrease diuretic dose chronically, held while inpatient some gentle fluids given on 09/16/18, patient felt better stop Digoxin (was actually stopped in May by provide, the patient kept taking) For history of coronary disease he is maintained on aspirin and Plavix as well as atorvastatin 80 he cannot tolerate an RALPH inhibitor and ARB due to his lower blood pressure With his cardiomyopathy has both a history of V. 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 explained that he was not actively dying, just wanted to start thinking about future (4) Chronic low back pain: Patient has chronic low back patient is typically takes oxycodone added Baclofen TID for spasms, responded really well stop Flexeril increased Baclofen to 20mg TID prior to discharge since it was helping (5) Atrial fibrillation: Patient will remain on carvedilol 3.25, digoxin stopped Eliquis for anticoagulation Amiodarone dose is confirmed to be 200 twice daily (6) COPD (chronic obstructive pulmonary disease): Patient COPD has been stable for this patient takes inhaled medications of Advair Combivent and as needed albuterol (7) Depression: Patient takes sertraline 150 mg every morning, and quetiapine (8) Acute kidney injury: CR was up to 1.7 on admission trending down to 1.1 the day of discharge after some gentle IV fluids likely from low volume status, dehydrated (9) CKD (chronic kidney disease), stage II: Total Time Total Time Spent Total Time Spent (In Minutes): 40 minutes Total Time Includes: Examination of the Patient, Discharge Planning, Medication Reconciliation and Communication With Other Providers (Peggy Starr, Palliative care) Discharge Plan Discharge Items Patient Disposition: Home - Home Health Services Reason For Visit: SYNCOPE Discharge Diagnosis: Syncope Orthostatic hypotension Low back pain Condition: Good Discharge Goals: Improve disease control and Improve function Activity: Resume your previous activity Non-emergency contact: Primary Care Provider and [employer]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 Hilda Marie on FridaySeptember 18 at 10:00 am. *If you need to change this appointment, call the office at [phone].) Peggy Spence PA-C [Physician [employer] Vault Installer] - 09/24/18 9:30 am (Please, follow up at [facility] Office with Cathleen Spence PA-C on September 24 at 9:30 am. ) Diet: Heart Healthy Fluids: 2000ml (8 cups) Addtl Provider Instructions: Medications: - TORSEMIDE: cardiology recommends to take 20mg twice a day - BACLOFEN: started in the hospital for back spasms, helping a lot, will continue at 20mg three times a day DO NOT TAKE THE FOLLOWING MEDICATIONS THAT YOU WERE ON IN THE PAST - COUMADIN: this was replaced by Eliquis - FLEXERIL: this was the muscle relaxer that you were taking, it is replaced by Baclofen - DIGOXIN: this was stopped back in May, please stop taking Prescriptions: Continued atorvastatin 80 mg tablet 80 mg PO HS RF: 0 aspirin 81 mg Tablet,Delayed Release (Dr/Ec) 81 mg PO QAM RF: 0 azelastine 137 mcg (0.1 %) aerosol,spray 1 spray Intranasal BID PRN (Reason: ALLERGIES) RF: 0 multivitamin [Daily Multiple] Tablet 1 tab PO QAM RF: 0 polyethylene glycol 3350 [Miralax] 17 gram Powder In Packet 17 g PO DAILY PRN (Reason: Constipation) RF: 0 clopidogrel 75 mg tablet 75 mg PO QAM RF: 0 oxycodone-acetaminophen 10-325 mg tablet 1 tab PO Q4H PRN (Reason: Pain) RF: 0 pantoprazole 40 mg tablet,delayed release (DR/EC) 40 mg PO QAM RF: 0 ranitidine HCl 150 mg tablet 150 mg PO Q12H RF: 0 loratadine [Claritin] 10 mg Tablet 10 mg PO QAM RF: 0 melatonin 10 mg Tablet 10 mg PO HS RF: 0 spironolactone 25 mg tablet 50 mg PO 1600 RF: 0 albuterol sulfate [Ventolin HFA] 90 mcg/actuation Hfa Aerosol Inhaler 2 puff INHALATION Q6H PRN (Reason: Shortness Of Breath) RF: 0 diclofenac sodium [Voltaren] 1 % gel 4 gm TOP QID PRN (Reason: Pain) RF: 0 amiodarone 200 mg Tablet 200 mg PO BID Qty: 60 RF: 0 acetaminophen [Tylenol Extra Strength] 500 mg Tablet 1,000 mg PO Q6H PRN (Reason: Pain) RF: 0 flaxseed oil-omega 3,6,9 1,300 mg-845 mg -117 mg-117 mg Capsule 1 cap PO 1200 RF: 0 fluticasone propion-salmeterol [Advair Diskus] 250-50 mcg/dose blister with device 1 puff Inhalation BID RF: 0 ondansetron HCl [Zofran] 4 mg Tablet 4 mg PO QID PRN (Reason: Nausea) RF: 0 docusate sodium [Colace] 100 mg Capsule 200 mg PO HS RF: 0 ginkgo biloba 120 mg Tablet 120 mg PO DAILY RF: 0 coenzyme Q10 [Co Q-10] 200 mg Capsule 200 mg PO DAILY RF: 0 Calcium Magnesium 500 mg calcium -250 mg Tablet PO DAILY RF: 0 Combivent Respimat 20-100 mcg/actuation Mist 1 puff INHALATION TID RF: 0 saw palmetto 160 mg Capsule PO BID RF: 0 Zyrtec 10 mg Capsule 10 mg PO DAILY RF: 0 Probiotic 3 billion cell Capsule PO DAILY RF: 0 torsemide 20 mg tablet 20 mg PO BID RF: 0 carvedilol [Coreg] 3.125 mg tablet 3.125 mg PO BID RF: 0 Eliquis 5 mg Tablet 5 mg PO BID Qty: 60 RF: 0 Discontinued cyclobenzaprine 10 mg Tablet 10 mg PO BID PRN (Reason: Muscle Spasm) RF: 0 torsemide [Demadex] 20 mg Tablet 20 mg PO UD RF: 0 torsemide [Demadex] 20 mg tablet 40 mg PO UD RF: 0 No Action quetiapine 100 mg tablet 100 mg PO HS Qty: 30 RF: 5 baclofen 20 mg Tablet 10 mg PO TID 30 Days Qty: 90 RF: 1 Stand-Alone Forms: [facility] Discharge Orders: Discharge Order (Routine); Ordered 09/17/18 Ordered By: Jose Martin Admission Data Admit Date/Time: 09/14/18 20:56 Attending Provider: Jose Martin Admit Provider: Mario Torrez Primary Care Provider: Hilda Marie Other Providers: Loki Guerra ; Nicky Malave Service: Telemetry Other Interventions: Discharge Summary Assessment (RN) Last Done: 09/17/18 13:11 DC Date/Time DO NOT enter until pt leaves facility: 09/17/18 14:40
== END 2018-09-17 14:40 | disposition home health service (06) | DRG 312 ==
LOC: ED 17:48 → 2S 20:56 → SUATTDRO 20:56 → 2S 21:09
DX: E78.5 Hyperlipidemia, unspecified; K21.9 Gastro-esophageal reflux disease without esophagitis; Z79.02 Long term (current) use of antithrombotics/antiplatelets; Z87.891 Personal history of nicotine dependence; R79.1 Abnormal coagulation profile; I95.1 Orthostatic hypotension; Z95.810 Presence of automatic (implantable) cardiac defibrillator; I25.10 Atherosclerotic heart disease of native coronary artery without angina pectoris; Z79.899 Other long term (current) drug therapy; I25.2 Old myocardial infarction; Z86.73 Personal history of transient ischemic attack (TIA), and cerebral infarction without residual deficits; E87.6 Hypokalemia; I48.0 Paroxysmal atrial fibrillation; Z91.14 Patient's other noncompliance with medication regimen; Z91.041 Radiographic dye allergy status; R07.9 Chest pain, unspecified; G89.29 Other chronic pain; N17.9 Acute kidney failure, unspecified; F41.9 Anxiety disorder, unspecified; F32.9 Major depressive disorder, single episode, unspecified; Z86.718 Personal history of other venous thrombosis and embolism; I25.5 Ischemic cardiomyopathy; I73.9 Peripheral vascular disease, unspecified; Z79.82 Long term (current) use of aspirin; M54.5 Low back pain; J44.9 Chronic obstructive pulmonary disease, unspecified; R06.02 Shortness of breath; Z79.01 Long term (current) use of anticoagulants; N18.2 Chronic kidney disease, stage 2 (mild); E86.0 Dehydration; Z88.6 Allergy status to analgesic agent; Z88.8 Allergy status to other drugs, medicaments and biological substances; I50.22 Chronic systolic (congestive) heart failure

== ENCOUNTER 2018-09-17 21:49 | Inpatient (IN) ==
--- NOTE | 2018-09-17 23:24 | Emergency Department Note ---
History of Present Illness General Chief complaint: Altered Mental Status Stated complaint: AMS Time Seen by Provider: 09/17/18 23:01 Source: patient and EMS Mode of arrival: EMS Limitations: altered mental status, patient cooperation and intoxication History of Present Illness Current Pain Intensity: 0 Associated symptoms: + denies other symptoms Treatments prior to arrival: none This is a 57-year-old male who is brought to the emergency room by ambulance due to altered mental status. Patient is currently residing at home [facility] Per report multiple bottles of alcohol were found in the patient's room after staff members had to assist him in the bathroom as he had defecated all over. Patient was noted by staff to have altered mental status at that time and upon trying to return him to his room they noticed the bottles of alcohol. EMS was called at that time who brought the patient in. Of note patient had recently been discharged from the hospital after admission related to syncope. Patient does have several chronic medical problems and is on multiple medications including blood thinners. Patient unable to provide any additional history at this time, will intermittently answer simple yes/no questions. HPI Limited due to intoxication/altered mental status. Home Medications Home Medications Medication Instructions Recorded Confirmed Type aspirin 81 mg PO QAM 03/02/18 09/18/18 History atorvastatin 80 mg PO HS 03/02/18 09/18/18 History azelastine 1 spray INTRANASAL BID PRN 03/02/18 09/18/18 History buspirone 15 mg PO TID 03/02/18 09/18/18 History albuterol sulfate [Ventolin HFA] 2 puff INHALATION Q6H PRN 03/03/18 09/18/18 H istory clopidogrel 75 mg PO QAM 03/03/18 09/18/18 History loratadine [Claritin] 10 mg PO QAM 03/03/18 09/18/18 History melatonin 10 mg PO HS 03/03/18 09/18/18 History multivitamin [Daily Multiple] 1 tab PO QAM 03/03/18 09/18/18 History oxycodone-acetaminophen 1 tab PO Q4H PRN 03/03/18 09/18/18 History pantoprazole 40 mg PO QAM 03/03/18 09/18/18 History polyethylene glycol 3350 [Miralax] 17 g PO DAILY PRN 03/03/18 09/18/18 History quetiapine 200 mg PO HS 03/03/18 09/18/18 History ranitidine HCl 150 mg PO Q12H 03/03/18 09/18/18 History sertraline 150 mg PO QAM 03/03/18 09/18/18 History spironolactone 50 mg PO 1600 03/03/18 09/18/18 History diclofenac sodium [Voltaren] 4 gm TOP QID PRN 03/30/18 09/18/18 History amiodarone 200 mg PO BID #60 tab 04/30/18 09/18/18 Rx acetaminophen [Tylenol Extra 1,000 mg PO Q6H PRN 05/22/18 09/18/18 History Strength] flaxseed oil-omega 3,6,9 1 cap PO 1200 05/22/18 09/18/18 History fluticasone propion-salmeterol 1 puff INHALATION BID 06/22/18 09/18/18 History [Advair Diskus] Calcium Magnesium 0 mg PO DAILY 09/01/18 09/18/18 History Combivent Respimat 1 puff INHALATION TID 09/01/18 09/18/18 History Probiotic 0 mmu cells PO DAILY 09/01/18 09/18/18 History Zyrtec 10 mg PO DAILY 09/01/18 09/18/18 History carvedilol [Coreg] 3.125 mg PO BID 09/01/18 09/18/18 History coenzyme Q10 [Co Q-10] 200 mg PO DAILY 09/01/18 09/18/18 History docusate sodium [Colace] 200 mg PO HS 09/01/18 09/18/18 History ginkgo biloba 120 mg PO DAILY 09/01/18 09/18/18 History ondansetron HCl [Zofran] 4 mg PO QID PRN 09/01/18 09/18/18 History saw palmetto 0 mg PO BID 09/01/18 09/18/18 History torsemide 20 mg PO BID 09/01/18 09/18/18 History Eliquis 5 mg PO BID #60 tab 09/04/18 09/18/18 Rx baclofen 20 mg PO TID 30 Days #90 tab 09/17/18 09/18/18 Rx Allergies Allergy/AdvReac Type Severity Reaction Status Date / Time heparin Allergy Severe SEE COMMENT Verified 09/18/18 04:17 Iodinated Contrast- Oral and Allergy Severe swelling, Verified 09/18/18 04:17 IV Dye hives ibuprofen AdvReac Intermediate nausea Verified 09/18/18 04:17 vomiting Past Med/Surg History Medical History Anxiety (Chronic) Diastolic CHF (Resolved) Hypotension (Resolved) NSTEMI (non-ST elevated myocardial infarction) (Resolved) Systolic CHF (Resolved) CHF (congestive heart failure) (Resolved) Anemia of chronic disease History of venous thromboembolism History of orthostatic hypotension PVD (peripheral vascular disease) Paroxysmal A-fib COPD (chronic obstructive pulmonary disease) Ischemic cardiomyopathy Acid reflux Aneurysm pt reports multiple aneurysms of LLE w/ stents Anxiety Atrial fibrillation COPD (chronic obstructive pulmonary disease) CVA (cerebral vascular accident) no residual effects Cardiac LV ejection fraction <20% Cardiomyopathy Collar bone fracture Compression fracture Congestive heart failure DJD (degenerative joint disease) Hepatitis C History of left heart catheterization x10 per pt Hyperlipidemia Kidney disease DELICIA (obstructive sleep apnea) On Coumadin for atrial fibrillation Pacemaker Presence of combination internal cardiac defibrillator (ICD) and pacemaker Rib fractures Weakness Surgical History Status post popliteal-distal bypass surgery H/O rotator cuff surgery right S/P insertion of iliac artery stent Family History Other No significant family history Social History Preferred Language: Kazakh Communication Ability: Impaired Medical Coding Technician Required: No Beliefs That Will Affect Care: None marital status: Current Living Situation: Boarding Home Current Living Situation Comment: [facility] current occupational status: disabled Other Information That Helps Us Care for You: No Feels Safe at Home: Yes Safety Concerns: Feels Safe At This Time Smoking Status: Never smoker Second Hand Exposure: No Hx Alcohol Use: Yes Hx Substance Use: No Review of Systems Unobtainable due to cognitive status Physical Exam Vital Signs Vital Signs - 24 hr 09/18/18 00:07 09/18/18 00:45 09/18/18 02:00 Temperature Temperature Source Pulse Rate Pulse Rate [Right Finger] 85 80 Pulse Rhythm [Right Finger] Regular Regular Pulse Strength [Right Finger] Normal Normal Respiratory Rate 16 16 Respiratory Effort / Characteristics Non-Labored Non-Labored Respiratory Depth Normal Normal Respiratory Pattern Regular Regular Blood Pressure Blood Pressure [Left Arm] Blood Pressure [Right Arm] 126/78 128/78 Blood Pressure Mean [Left Arm] Blood Pressure Mean [Right Arm] 94 94 Blood Pressure Position [Left Arm] Blood Pressure Position [Right Arm] Lying Lying Pulse Oximetry 96 95 96 Oxygen Delivery Method Room Air Room Air Room Air 09/18/18 03:47 09/18/18 04:56 09/18/18 05:05 Temperature 37.2 C Temperature Source Oral Pulse Rate 106 H Pulse Rate [Right Finger] 90 96 H Pulse Rhythm [Right Finger] Pulse Strength [Right Finger] Respiratory Rate 16 18 20 Respiratory Effort / Characteristics Non-Labored Spontaneous Respiratory Depth Normal Respiratory Pattern Regular Blood Pressure 128/93 Blood Pressure [Left Arm] Blood Pressure [Right Arm] 112/87 111/71 Blood Pressure Mean [Left Arm] Blood Pressure Mean [Right Arm] 95 84 Blood Pressure Position [Left Arm] Blood Pressure Position [Right Arm] Lying Pulse Oximetry 94 96 93 Oxygen Delivery Method Room Air Room Air Room Air 09/18/18 05:20 09/18/18 07:18 09/18/18 08:00 Temperature 36.7 C Temperature Source Oral Pulse Rate Pulse Rate [Right Finger] 98 H Pulse Rhythm [Right Finger] Pulse Strength [Right Finger] Respiratory Rate 18 Respiratory Effort / Characteristics Non-Labored Spontaneous Non-Labored Spontaneous Respiratory Depth Normal Normal Respiratory Pattern Regular Blood Pressure Blood Pressure [Left Arm] 113/73 Blood Pressure [Right Arm] Blood Pressure Mean [Left Arm] 86 Blood Pressure Mean [Right Arm] Blood Pressure Position [Left Arm] Blood Pressure Position [Right Arm] Lying Pulse Oximetry 92 Oxygen Delivery Method Room Air Room Air Room Air 09/18/18 14:50 09/18/18 20:48 09/18/18 23:06 Temperature 36.8 C 37.1 C Temperature Source Oral Axillary Pulse Rate Pulse Rate [Right Finger] 91 H 78 79 Pulse Rhythm [Right Finger] Pulse Strength [Right Finger] Respiratory Rate 20 18 Respiratory Effort / Characteristics Respiratory Depth Respiratory Pattern Blood Pressure Blood Pressure [Left Arm] 116/72 118/74 Blood Pressure [Right Arm] 125/79 Blood Pressure Mean [Left Arm] 86 88 Blood Pressure Mean [Right Arm] 94 Blood Pressure Position [Left Arm] Lying Lying Blood Pressure Position [Right Arm] Pulse Oximetry 91 92 Oxygen Delivery Method Room Air GENERAL: alert, well appearing, well nourished, no distress, non-toxic EYE EXAM: normal conjunctiva, PERRL and EOM's grossly intact OROPHARYNX: no exudate, no erythema, lips, buccal mucosa, and tongue normal and mucous membranes are moist NECK: supple, no nuchal rigidity, no adenopathy, non-tender LUNGS: Clear to auscultation. Normal chest wall mechanics, no w/r/r HEART: no murmurs, S1 normal and S2 normal ABDOMEN: abdomen soft, tenderness over areas of ecchymosis which appear to be subacute, normo-active bowel sounds, no masses, no rebound or guarding. BACK: Back is symmetrical on inspection and there is no deformity, no midline tenderness, no CVA tenderness. SKIN: no rashes and no bruising UPPER EXTREMITIES: upper extremities are grossly normal. FROM, nml pulses b/l. LOWER EXTREMITIES: No pitting edema. FROM, nml pulses b/l. NEURO EXAM: Somnolent but arousable, will answer questions intermittently, cranial nerves II-XII grossly intact, patient will not cooperate for full neuro evaluation, he is moving all 4 extremities spontaneously gross sensation intact. Course 0100: Patient reexamined at bedside. Patient is singing [place] carols. Patient opens eyes to voice and will answer simple yes/no questions. Still awaiting results of CTs. unable to perform straight cath due to patient agitation. 0140: Unable to obtain ABG due to patient agitation and cooperation. 0300: Patient still unable to answer questions of orientation. Case discussed with hospitalist. We also discussed possible need of psychiatric evaluation. Case discussed with Katelynn, psychiatric cyanide case hardener. Administered Medications Albuterol (Combivent Respimat) 1 puffs INH TID [facility] Stop: 10/18/18 08:59 Last Admin: 09/18/18 20:53 Dose: 1 puffs Documented by: [id number] Admin: 09/18/18 13:20 Dose: 1 puffs Documented by: [id number] Admin: 09/18/18 07:47 Dose: 1 puffs Documented by: [id number] Amiodarone HCl (Cordarone) 200 mg PO BID [facility] Stop: 10/18/18 08:59 Last Admin: 09/18/18 20:53 Dose: 200 mg Documented by: [id number] Admin: 09/18/18 07:46 Dose: 200 mg Documented by: [id number] Apixaban (Eliquis) 5 mg PO BID [facility] Stop: 10/18/18 08:59 Last Admin: 09/18/18 20:53 Dose: 5 mg Documented by: [id number] Admin: 09/18/18 07:46 Dose: 5 mg Documented by: [id number] Aspirin (Ecotrin Ectab) 81 mg PO QAM [facility] Stop: 10/18/18 08:59 Last Admin: 09/18/18 07:45 Dose: 81 mg Documented by: [id number] Atorvastatin Calcium (Lipitor) 80 mg PO HS [facility] Stop: 10/18/18 20:59 Last Admin: 09/18/18 20:53 Dose: 80 mg Documented by: [id number] Baclofen (Lioresal) 20 mg PO TID [facility] Stop: 10/18/18 08:59 Last Admin: 09/18/18 20:54 Dose: 20 mg Documented by: [id number] Admin: 09/18/18 13:20 Dose: 20 mg Documented by: [id number] Admin: 09/18/18 07:47 Dose: 20 mg Documented by: [id number] Buspirone HCl (Buspar) 15 mg PO TID [facility] Stop: 10/18/18 08:59 Last Admin: 09/18/18 20:53 Dose: 15 mg Documented by: [id number] Admin: 09/18/18 13:20 Dose: 15 mg Documented by: [id number] Admin: 09/18/18 07:45 Dose: 15 mg Documented by: [id number] Carvedilol (Coreg) 3.125 mg PO BID [facility] Stop: 10/18/18 08:59 Last Admin: 09/18/18 20:53 Dose: 3.125 mg Documented by: [id number] Admin: 09/18/18 07:45 Dose: 3.125 mg Documented by: [id number] Cetirizine HCl (Zyrtec) 10 mg PO DAILY [facility] Stop: 10/18/18 08:59 Last Admin: 09/18/18 07:46 Dose: 10 mg Documented by: [id number] Clopidogrel Bisulfate (Plavix) 75 mg PO QAM [facility] Stop: 10/18/18 08:59 Last Admin: 09/18/18 07:46 Dose: 75 mg Documented by: [id number] Docusate Sodium (Colace) 200 mg PO [facility] Stop: 10/18/18 20:59 Last Admin: 09/18/18 20:54 Dose: Not Given Documented by: [id number] Ioversol (Optiray 320 100ml) 100 ml IV ONCE PRN PRN Reason: Interaction Checking Stop: 09/22/18 01:03 Last Admin: 09/18/18 01:04 Dose: 93 ml Documented by: [id number] Miscellaneous (Order Awaiting Action) 1 ea N/A QS [facility] Stop: 10/18/18 07:59 Last Admin: 09/18/18 16:57 Dose: Not Given Documented by: [id number] Admin: 09/18/18 07:39 Dose: Not Given Documented by: [id number] Multivitamins (Multivitamin Tab) 1 tab PO [facility] Stop: 10/18/18 08:59 Last Admin: 09/18/18 07:46 Dose: 1 tab Documented by: [id number] Ondansetron HCl (Zofran) 4 mg PO QID PRN PRN Reason: Nausea Stop: 10/18/18 05:14 Last Admin: 09/18/18 06:23 Dose: 4 mg Documented by: [id number] [facility]oprazole [facility] ([facility]) [facility] Stop: 10/18/18 08:59 Last Admin: 09/18/18 07:46 Dose: 40 mg Documented by: [id number] Quetiapine Fumarate (Seroquel) 200 mg PO [facility] Stop: 10/18/18 20:59 Last Admin: 09/18/18 20:53 Dose: 200 mg Documented by: [id number] Ranitidine HCl (Zantac) 150 mg PO Q12H [facility] Stop: 10/18/18 08:59 Last Admin: 09/18/18 20:53 Dose: 150 mg Documented by: [id number] Admin: 09/18/18 07:47 Dose: 150 mg Documented by: [id number] Fluticasone/Salmeterol (Advair Diskus 250/50) 1 puffs INH BID [facility] Stop: 10/18/18 08:59 Last Admin: 09/18/18 20:53 Dose: 1 puffs Documented by: [id number] Admin: 09/18/18 07:45 Dose: 1 puffs Documented by: [id number] Sertraline HCl (Zoloft) 150 mg PO QAM [facility] Stop: 10/18/18 08:59 Last Admin: 09/18/18 07:46 Dose: 150 mg Documented by: [id number] Spironolactone (Aldactone) 50 mg PO DAILY@1600 [facility] Stop: 10/18/18 15:59 Last Admin: 09/18/18 16:56 Dose: 50 mg Documented by: [id number] Discontinued Medications Diphenhydramine HCl (Benadryl) 25 mg IV NOW STA Stop: 09/17/18 23:47 Last Admin: 09/18/18 00:02 Dose: 25 mg Documented by: [id number] Sodium Chloride (Nss) 250 mls @ 999 mls/hr IV .Q16M ONE Stop: 09/18/18 01:36 Last Infusion: 09/18/18 02:02 Dose: 0 mls/hr Documented by: [id number] Admin: 09/18/18 01:26 Dose: 999 mls/hr Documented by: [id number] Methylprednisolone (Solumedrol) 60 mg IV NOW STA Stop: 09/17/18 23:47 Last Admin: 09/18/18 00:02 Dose: 60 mg Documented by: [id number] Medical Decision Making Differential Diagnosis Differential diagnoses includes but is not limited to toxic, metabolic, infe ctious, traumatic, cardiac, neurologic, hematologic, psychiatric and inflammatory etiologies. Medical Records Attestation: I reviewed the patient's medical records. Home Medications Current Medication List: was personally reviewed by me Laboratory Data Attestation: I reviewed the patient's lab results. Result diagrams: 09/17/18 23:13 09/17/18 23:13 Lab Results 09/17/18 09/17/18 09/17/18 Range/Units 22:20 23:13 23:13 WBC (4.8-10.8) K/uL RBC (4.7-6.1) M/uL Hgb (14.0-18.0) g/dL Hct (42-52) % MCV (80-100) fL MCH (25-34) pg MCHC (32-36) g/dL RDW Std Deviation (36.4-46.3) fL RDW Coeff of Julian (11.5-14.5) % Plt Count (130-400) K/uL MPV (7.4-10.4) fL Immature Gran % (Auto) % Neut % (Auto) % Lymph % (Auto) % [place] % (Auto) % Eos % (Auto) % Baso % (Auto) % Immature Gran # (Auto) (0.00-0.02) K/uL Neut # (Auto) (1.4-6.5) K/uL Lymph # (Auto) (1.2-3.4) K/uL [place] # (Auto) (0.11-0.59) K/uL Eos # (Auto) (0-0.5) K/uL Baso # (Auto) (0-0.2) K/uL ABG pH ABG pCO2 ABG pO2 ABG HCO3 ABG O2 Saturation ABG Base Excess [place] Test Barometric Pressure Oxygen Given Sodium 138 (136-145) mmol/L Potassium 4.2 (3.5-5.1) mmol/L Chloride 104 (98-107) mmol/L Carbon Dioxide 31 (21-32) mmol/L Anion Gap 3.0 (3-11) BUN 25 H (7-18) mg/dl Creatinine 1.36 (0.6-1.4) mg/dl Est Cr Clr Drug Dosing 73.6 ml/min Est GFR ( Amer) 65.5 Est GFR (Non-Af Amer) 56.6 BUN/Creatinine Ratio 18.2 (10-20) Glucose 101 H (70-99) mg/dl POC Glucose 110 H (70-99) Calcium 8.6 (8.5-10.1) mg/dl Total Bilirubin 0.4 (0.2-1) mg/dl Direct Bilirubin (0-0.2) mg/dl AST 29 (15-37) U/L ALT 28 (12-78) U/L Alkaline Phosphatase 74 (45-117) U/L Ammonia (11-32) umol/L Total Protein 7.5 (6.4-8.2) gm/dl Albumin 3.5 (3.4-5.0) gm/dl Lipase 123 (73-393) U/L Specimen Hemolysis Urine Opiates Screen (Neg) Ur Methadone, Qual (Neg) Urine Barbiturates (Neg) Ur Phencyclidine (PCP) (Neg) U Amphetamin/Meth Scrn (Neg) MDMA (Ecstasy) Screen (Neg) U Benzodiazepines Scrn (Neg) Ur Cocaine Metabolite (Neg) U Marijuana (THC) Screen (Neg) Ethyl Alcohol mg/dL < 3.0 (0-3) mg/dl 09/17/18 09/17/18 09/18/18 Range/Units 23:13 23:13 01:36 WBC 7.04 (4.8-10.8) K/uL RBC 4.01 L (4.7-6.1) M/uL Hgb 13.5 L (14.0-18.0) g/dL Hct 39.9 L (42-52) % MCV 99.5 (80-100) fL MCH 33.7 (25-34) pg MCHC 33.8 (32-36) g/dL RDW Std Deviation 60.1 H (36.4-46.3) fL RDW Coeff of Julian 16.5 H (11.5-14.5) % Plt Count 229 (130-400) K/uL MPV 10.0 (7.4-10.4) fL Immature Gran % (Auto) 1.3 % Neut % (Auto) 67.1 % Lymph % (Auto) 17.9 % [place] % (Auto) 11.4 % Eos % (Auto) 1.7 % Baso % (Auto) 0.6 % Immature Gran # (Auto) 0.09 H (0.00-0.02) K/uL Neut # (Auto) 4.73 (1.4-6.5) K/uL Lymph # (Auto) 1.26 (1.2-3.4) K/uL [place] # (Auto) 0.80 H (0.11-0.59) K/uL Eos # (Auto) 0.12 (0-0.5) K/uL Baso # (Auto) 0.04 (0-0.2) K/uL ABG pH Cancelled ABG pCO2 Cancelled ABG pO2 Cancelled ABG HCO3 Cancelled ABG O2 Saturation Cancelled ABG Base Excess Cancelled [place] Test Cancelled Barometric Pressure Cancelled Oxygen Given Cancelled Sodium (136-145) mmol/L Potassium (3.5-5.1) mmol/L Chloride (98-107) mmol/L Carbon Dioxide (21-32) mmol/L Anion Gap (3-11) BUN (7-18) mg/dl Creatinine (0.6-1.4) mg/dl Est Cr Clr Drug Dosing ml/min Est GFR ( Amer) Est GFR (Non-Af Amer) BUN/Creatinine Ratio (10-20) Glucose (70-99) mg/dl POC Glucose (70-99) Calcium (8.5-10.1) mg/dl Total Bilirubin (0.2-1) mg/dl Direct Bilirubin (0-0.2) mg/dl AST (15-37) U/L ALT (12-78) U/L Alkaline Phosphatase (45-117) U/L Ammonia 21.0 (11-32) umol/L Total Protein (6.4-8.2) gm/dl Albumin (3.4-5.0) gm/dl Lipase (73-393) U/L Specimen Hemolysis Urine Opiates Screen (Neg) Ur Methadone, Qual (Neg) Urine Barbiturates (Neg) Ur Phencyclidine (PCP) (Neg) U Amphetamin/Meth Scrn (Neg) MDMA (Ecstasy) Screen (Neg) U Benzodiazepines Scrn (Neg) Ur Cocaine Metabolite (Neg) U Marijuana (THC) Screen (Neg) Ethyl Alcohol mg/dL (0-3) mg/dl 09/18/18 Range/Units 01:59 WBC (4.8-10.8) K/uL RBC (4.7-6.1) M/uL Hgb (14.0-18.0) g/dL Hct (42-52) % MCV (80-100) fL MCH (25-34) pg MCHC (32-36) g/dL RDW Std Deviation (36.4-46.3) fL RDW Coeff of Julian (11.5-14.5) % Plt Count (130-400) K/uL MPV (7.4-10.4) fL Immature Gran % (Auto) % Neut % (Auto) % Lymph % (Auto) % [place] % (Auto) % Eos % (Auto) % Baso % (Auto) % Immature Gran # (Auto) (0.00-0.02) K/uL Neut # (Auto) (1.4-6.5) K/uL Lymph # (Auto) (1.2-3.4) K/uL [place] # (Auto) (0.11-0.59) K/uL Eos # (Auto) (0-0.5) K/uL Baso # (Auto) (0-0.2) K/uL ABG pH ABG pCO2 ABG pO2 ABG HCO3 ABG O2 Saturation ABG Base Excess [place] Test Barometric Pressure Oxygen Given Sodium (136-145) mmol/L Potassium (3.5-5.1) mmol/L Chloride (98-107) mmol/L Carbon Dioxide (21-32) mmol/L Anion Gap (3-11) BUN (7-18) mg/dl Creatinine (0.6-1.4) mg/dl Est Cr Clr Drug Dosing ml/min Est GFR ( Amer) Est GFR (Non-Af Amer) BUN/Creatinine Ratio (10-20) Glucose (70-99) mg/dl POC Glucose (70-99) Calcium (8.5-10.1) mg/dl Total Bilirubin (0.2-1) mg/dl Direct Bilirubin (0-0.2) mg/dl AST (15-37) U/L ALT (12-78) U/L Alkaline Phosphatase (45-117) U/L Ammonia (11-32) umol/L Total Protein (6.4-8.2) gm/dl Albumin (3.4-5.0) gm/dl Lipase (73-393) U/L Specimen Hemolysis Urine Opiates Screen Neg (Neg) Ur Methadone, Qual Neg (Neg) Urine Barbiturates Neg (Neg) Ur Phencyclidine (PCP) Neg (Neg) U Amphetamin/Meth Scrn Neg (Neg) MDMA (Ecstasy) Screen Neg (Neg) U Benzodiazepines Scrn Neg (Neg) Ur Cocaine Metabolite Neg (Neg) U Marijuana (THC) Screen Neg (Neg) Ethyl Alcohol mg/dL (0-3) mg/dl Imaging Data Radiologist's Impression: CT head: Comparison 09/14/2018 No evidence of intracranial hemorrhage, mass-effect or calvarial fracture. Ventricles are unchanged in size and remain midline. Visualized paranasal sinuses, mastoids, and orbits appear within limits. Radiologist: Deng Storey MD CT C-spine: Comparison 09/01/2018 No fracture or malalignment. Spondylosis/discogenic change again noted. 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 Pt also now on blood thinners. Given unclear event leading up to arrival in the ER tonight, pt sent for CT imaging to r/o cva, ICH, and other trauma given contusion noted on abdomen. CT imaging was reassuring. Labs reassuring and compared to recent admission labs. Pt with stable VS. Pt with odd affect and questionable malingering. Given suspicion for component of malingering, I discussed with psych case sealer after discussion with hospitalist. No psychosis, no grounds for inpatient psychiatric admission. Uncertain if pt could benefit from additional neurology evaluation. Unclear if his device is MRI compatible. Impression & Plan Altered mental status Discharge Plan Visit Data *Final* Discharge Date/Time: 09/18/18 04:56 Chief Complaint: Altered Mental Status Stated Complaint: AMS ED Provider: Reema Mike Discharge Problem: Altered mental status Patient Disposition: Admitted As Inpatient Condition: Good Discharge Instructions Interventions: ED Discharge Assessment Last Done: 09/18/18 04:56 Discharge Problem: Altered mental status Qualifiers: Altered mental status type: unspecified Qualified Code(s): R41.82 - Altered mental status, unspecified
[2018-09-17 23:27] LABS: Basophils # (auto) 0.04 K/uL (0-0.2); Basophils % (auto) 0.6 %; Eosinophils # (auto) 0.12 K/uL (0-0.5); Eosinophils % (auto) 1.7 %; Hematocrit (blood only) 39.9 % (42-52); Hemoglobin 13.5 g/dL (14.0-18.0); Immature Granulocytes # (auto) 0.09 K/uL (0.00-0.02); Immature Granulocytes % (auto) 1.3 %; Lymphocytes # (auto) 1.26 K/uL (1.2-3.4); Lymphocytes % (auto) 17.9 %; Mean Corpuscular Hgb Conc 33.8 g/dL (32-36); Mean Corpuscular Volume 99.5 fL (80-100); Monocytes % (auto) 11.4 %; Neutrophils # (auto) 4.73 K/uL (1.4-6.5); Neutrophils % (auto) 67.1 %; Platelet Count 229 K/uL (130-400); RDW Coefficient of Variation 16.5 % (11.5-14.5); RDW Standard Deviation 60.1 fL (36.4-46.3); Red Blood Count 4.01 M/uL (4.7-6.1); White Blood Count 7.04 K/uL (4.8-10.8)
[2018-09-17] MEDS ORDERED: methylPREDNISolone 125 MG/2 ML VIAL IV STA (23:46)
[2018-09-17] MEDS ORDERED: DiphenhydrAMINE HCL 50 MG/ML VIAL IV STA (23:46)
[2018-09-18 00:19] LABS: Albumin Level 3.5 gm/dl (3.4-5.0); BUN Creatinine Ratio 18.2 (10-20); Bilirubin,Total 0.4 mg/dl (0.2-1); Calcium 8.6 mg/dl (8.5-10.1); Creatinine Clr Calc Pharmacy 73.6 ml/min; Est GFR (African American) 65.5; Est GFR (Non-African American) 56.6; Potassium 4.2 mmol/L (3.5-5.1); Total Protein 7.5 gm/dl (6.4-8.2)
[2018-09-18] MEDS ORDERED: IOVERSOL 100ml IV PRN (01:04)
[2018-09-18] MEDS ORDERED: SODIUM CHLORIDE 0.9% 250 ML IV ONE (01:21)
[2018-09-18 02:23] LABS: Amphetamines+Metham, Urine Neg (Neg); Barbiturates, Urine Neg (Neg); Benzodiazepine, Urine Neg (Neg); Cocaine, Urine Neg (Neg); MDMA (Ecstacy), Urine Neg (Neg); Methadone, Urine Neg (Neg); Opiate, Urine Neg (Neg); Phencyclidine, Urine Neg (Neg)
[2018-09-18] MEDS ORDERED: POLYETHYLENE (MIRALAX) 17 GM PACK PO PRN ×2 (05:15)
[2018-09-18] MEDS ORDERED: DICLOFENAC SOD 1% GEL 100 GM TUBE EXT PRN (05:15)
[2018-09-18] MEDS ORDERED: ONDANSETRON 4 MG TAB PO PRN (05:15)
[2018-09-18] MEDS ORDERED: MAGNESIUM HYDROXIDE SUSP 30 ML UDC PO PRN (05:15)
[2018-09-18] MEDS ORDERED: ALBUTEROL HFA 8 GM INHALER INH PRN (05:15)
[2018-09-18] MEDS ORDERED: ALUMINUM/MAGNESIUM SUSP 30 ML UDC PO PRN (05:15)
--- NOTE | 2018-09-18 06:28 | History & Physical Report ---
Date of Service September 18, 2018 Assessment & Plan (1) Altered mental status: Altered mental status- The patient presents to the emergency department after just being discharged from [facility] earlier in the day. Patient was reportedly found to have number of alcohol bottles in his room, but his alcohol level is normal during the ED assessment. His responses in the emergency department to ED personnel, psychiatry personnel and myself all appeared to be evasive, and there were concerns regarding ma lingering for unknown reasons, and concerns with him being unhappy at his current living arrangements at [facility]. The patient is being admitted for assessment by psychiatry and child protective services social worker for possible relocation to a new living situation in an effort to help minimize recurrent admissions and improve his overall health. Present on Admission?: Yes (2) Goals of care, counseling/discussion: As above. Present on Admission?: Yes (3) Coronary artery disease: CAD/hypertension/CHF/atrial fibrillation/ischemic cardiomyopathy- All medications will be continued as before. Present on Admission?: Yes (4) Atrial fibrillation: See above Present on Admission?: Yes (5) CHF (congestive heart failure): See above Present on Admission?: Yes (6) Hypertension: See above Present on Admission?: Yes (7) Syncope: See above Present on Admission?: Yes (8) Ischemic cardiomyopathy: See above Present on Admission?: Yes (9) COPD (chronic obstructive pulmonary disease): Continue usual inhalers. Present on Admission?: Yes (10) PVD (peripheral vascular disease): See above Present on Admission?: Yes (11) GERD (gastroesophageal reflux disease): Continue ranitidine and pantoprazole. Present on Admission?: Yes History of Present Illness Chief Complaint: The patient presents to the emergency department via ambulance due to altered mental status, covered in feces, singing Alyson carols, tapping on his chest, and acting in other unusual ways. Primary Care Provider: NO PCP The patient is a 57-year-old male just recently discharged to his custodial at [facility], after being admitted to [facility] from 09/14-09/17/2018. It was reported by multiple staff members there that the patient had several bottles of alcohol in his room, and that he had to be helped to his bathroom, as he had defecated all over himself and his room. When he arrived in the emergency department, he had to be cleaned down by staff. In the emergency department, he continued to have erratic behaviors with singing Alyson hankins, tapping on his chest, being evasive when asked to answer questions initially by emergency department staff, and then secondly by psychiatry liaison as well. The concern is that the patient is unhappy with his current living situation at [facility] for unknown reasons, and there is a feeling among ED personnel, psychiatry personnel and myself that the patient may be malingering for unknown reasons. The patient underwent an extensive work-up in the emergency department, including a normal urine drug screen, normal alcohol level, normal CT scans of head, chest, cervical spine, abdomen and pelvis. He also underwent a thorough laboratory evaluation, which were well within his usual range. Allergies Allergy/AdvReac Type Severity Reaction Status Date / Time heparin Allergy Severe SEE COMMENT Verified 09/18/18 04:17 Iodinated Contrast- Oral and Allergy Severe swelling, Verified 09/18/18 04:17 IV Dye hives ibuprofen AdvReac Intermediate nausea Verified 09/18/18 04:17 vomiting Home Medications Home Medications Medication Instructions Recorded Confirmed Type aspirin 81 mg PO QAM 03/02/18 09/18/18 History atorvastatin 80 mg PO HS 03/02/18 09/18/18 History azelastine 1 spray INTRANASAL BID PRN 03/02/18 09/18/18 History buspirone 15 mg PO TID 03/02/18 09/18/18 History albuterol sulfate [Ventolin HFA] 2 puff INHALATION Q6H PRN 03/03/18 09/18/18 History clopidogrel 75 mg PO QAM 03/03/18 09/18/18 History loratadine [Claritin] 10 mg PO QAM 03/03/18 09/18/18 History melatonin 10 mg PO HS 03/03/18 09/18/18 History multivitamin [Daily Multiple] 1 tab PO QAM 03/03/18 09/18/18 History oxycodone-acetaminophen 1 tab PO Q4H PRN 03/03/18 09/18/18 History pantoprazole 40 mg PO QAM 03/03/18 09/18/18 History polyethylene glycol 3350 [Miralax] 17 g PO DAILY PRN 03/03/18 09/18/18 History quetiapine 200 mg PO HS 03/03/18 09/18/18 History ranitidine HCl 150 mg PO Q12H 03/03/18 09/18/18 History sertraline 150 mg PO QAM 03/03/18 09/18/18 History spironolactone 50 mg PO 1600 03/03/18 09/18/18 History diclofenac sodium [Voltaren] 4 gm TOP QID PRN 03/30/18 09/18/18 History amiodarone 200 mg PO BID #60 tab 04/30/18 09/18/18 Rx acetaminophen [Tylenol Extra 1,000 mg PO Q6H PRN 05/22/18 09/18/18 History Strength] flaxseed oil-omega 3,6,9 1 cap PO 1200 05/22/18 09/18/18 History fluticasone propion-salmeterol 1 puff INHALATION BID 06/22/18 09/18/18 History [Advair Diskus] Calcium Magnesium 0 mg PO DAILY 09/01/18 09/18/18 History Combivent Respimat 1 puff INHALATION TID 09/01/18 09/18/18 History Probiotic 0 mmu cells PO DAILY 09/01/18 09/18/18 History Zyrtec 10 mg PO DAILY 09/01/18 09/18/18 History carvedilol [Coreg] 3.125 mg PO BID 09/01/18 09/18/18 History coenzyme Q10 [Co Q-10] 200 mg PO DAILY 09/01/18 09/18/18 History docusate sodium [Colace] 200 mg PO HS 09/01/18 09/18/18 History ginkgo biloba 120 mg PO DAILY 09/01/18 09/18/18 History ondansetron HCl [Zofran] 4 mg PO QID PRN 09/01/18 09/18/18 History saw palmetto 0 mg PO BID 09/01/18 09/18/18 History torsemide 20 mg PO BID 09/01/18 09/18/18 History Eliquis 5 mg PO BID #60 tab 09/04/18 09/18/18 Rx baclofen 20 mg PO TID 30 Days #90 tab 09/17/18 09/18/18 Rx Past Med/Surg History Medical History Anxiety (Chronic) Diastolic CHF (Resolved) Hypotension (Resolved) NSTEMI (non-ST elevated myocardial infarction) (Resolved) Systolic CHF (Resolved) CHF (congestive heart failure) (Resolved) Anemia of chronic disease History of venous thromboembolism History of orthostatic hypotension PVD (peripheral vascular disease) Paroxysmal A-fib COPD (chronic obstructive pulmonary disease) Ischemic cardiomyopathy Acid reflux Aneurysm pt reports multiple aneurysms of LLE w/ stents Anxiety Atrial fibrillation COPD (chronic obstructive pulmonary disease) CVA (cerebral vascular accident) no residual effects Cardiac LV ejection fraction <20% Cardiomyopathy Collar bone fracture Compression fracture Congestive heart failure DJD (degenerative joint disease) Hepatitis C History of left heart catheterization x10 per pt Hyperlipidemia Kidney disease DELICIA (obstructive sleep apnea) On Coumadin for atrial fibrillation Pacemaker Presence of combination internal cardiac defibrillator (ICD) and pacemaker Rib fractures Weakness Surgical History Status post popliteal-distal bypass surgery H/O rotator cuff surgery right S/P insertion of iliac artery stent Social History Preferred Language: Cambodian Communication Ability: Effective Practice Director Required: No Beliefs That Will Affect Care: None marital status: Current Living Situation: Boarding Home Current Living Situation Comment: [facility] current occupational status: disabled Other Information That Helps Us Care for You: No Feels Safe at Home: Yes Safety Concerns: Feels Safe At This Time Smoking Status: Never smoker Second Hand Exposure: No Hx Alcohol Use: Yes Hx Substance Use: No Review of Systems Review of Systems: Review of systems limited as noted above due to patient's altered mental state Physical Exam Physical Exam: The patient is awake, intermittently responds and alert fashion, normocephalic and atraumatic, lying in bed and in no acute distress. HEENT--PERRL, EOMI, mucous membranes and oropharynx normal. Neck--supple. No JVD. No bruits. Thyroid normal, trachea midline, no adenopathy. Heart--normal S1 and S2. No murmurs, rubs or gallops. Lungs--clear bilaterally, no respiratory distress, no accessory muscle use. Abdomen--normal bowel sounds and soft. Nontender. Nondistended. Extremities--no cyanosis or clubbing. No edema. There are good distal pulses b/l. Dermatologic--normal skin turgor, normal color, no abnormal lymph nodes, no rash. Neurologic--cranial nerves II through XII grossly intact. Rheumatologic--normal range of motion. Psychiatric--evasive affect. Erratic behavior as noted. Concern regarding malingering for unknown reasons. Results & Data Vital Signs (Past 12 Hours) Vital Signs Temp Pulse Pulse Resp BP BP Pulse Ox 09/18/18 05:05 99.0 F 96 H 20 111/71 93 09/18/18 04:56 106 H 18 128/93 96 09/18/18 03:47 90 16 112/87 94 09/18/18 02:00 80 16 128/78 96 09/18/18 00:45 85 16 126/78 95 09/18/18 00:07 96 09/17/18 23:17 72 16 109/73 95 09/17/18 22:17 98.4 F 89 16 127/98 96 Laboratory Results Laboratory Results WBC 7.04 K/uL (4.8-10.8) 09/17/18 23:13 RBC 4.01 M/uL (4.7-6.1) L 09/17/18 23:13 Hgb 13.5 g/dL (14.0-18.0) L 09/17/18 23:13 Hct 39.9 % (42-52) L 09/17/18 23:13 MCV 99.5 fL (80-100) 09/17/18 23:13 MCH 33.7 pg (25-34) 09/17/18 23:13 MCHC 33.8 g/dL (32-36) 09/17/18 23:13 RDW Std Deviation 60.1 fL (36.4-46.3) H 09/17/18 23:13 RDW Coeff of Julian 16.5 % (11.5-14.5) H 09/17/18 23:13 Plt Count 229 K/uL (130-400) 09/17/18 23:13 MPV 10.0 fL (7.4-10.4) 09/17/18 23:13 Immature Gran % (Auto) 1.3 % 09/17/18 23:13 Neut % (Auto) 67.1 % 09/17/18 23:13 Lymph % (Auto) 17.9 % 09/17/18 23:13 [place] % (Auto) 11.4 % 09/17/18 23:13 Eos % (Auto) 1.7 % 09/17/18 23:13 Baso % (Auto) 0.6 % 09/17/18 23:13 Immature Gran # (Auto) 0.09 K/uL (0.00-0.02) H 09/17/18 23:13 Neut # (Auto) 4.73 K/uL (1.4-6.5) 09/17/18 23:13 Lymph # (Auto) 1.26 K/uL (1.2-3.4) 09/17/18 23:13 [place] # (Auto) 0.80 K/uL (0.11-0.59) H 09/17/18 23:13 Eos # (Auto) 0.12 K/uL (0-0.5) 09/17/18 23:13 Baso # (Auto) 0.04 K/uL (0-0.2) 09/17/18 23:13 ABG pH Cancelled 09/18/18 01:36 ABG pCO2 Cancelled 09/18/18 01:36 ABG pO2 Cancelled 09/18/18 01:36 ABG HCO3 Cancelled 09/18/18 01:36 ABG O2 Saturation Cancelled 09/18/18 01:36 ABG Base Excess Cancelled 09/18/18 01:36 [place] Test Cancelled 09/18/18 01:36 Barometric Pressure Cancelled 09/18/18 01:36 Oxygen Given Cancelled 09/18/18 01:36 Sodium 138 mmol/L (136-145) 09/17/18 23:13 Potassium 4.2 mmol/L (3.5-5.1) 09/17/18 23:13 Chloride 104 mmol/L (98-107) 09/17/18 23:13 Carbon Dioxide 31 mmol/L (21-32) 09/17/18 23:13 Anion Gap 3.0 (3-11) 09/17/18 23:13 BUN 25 mg/dl (7-18) H 09/17/18 23:13 Creatinine 1.36 mg/dl (0.6-1.4) 09/17/18 23:13 Est Cr Clr Drug Dosing 73.6 ml/min 09/17/18 23:13 Est GFR ( Amer) 65.5 09/17/18 23:13 Est GFR (Non-Af Amer) 56.6 09/17/18 23:13 BUN/Creatinine Ratio 18.2 (10-20) 09/17/18 23:13 Glucose 101 mg/dl (70-99) H 09/17/18 23:13 POC Glucose 110 (70-99) H 09/17/18 22:20 Calcium 8.6 mg/dl (8.5-10.1) 09/17/18 23:13 Total Bilirubin 0.4 mg/dl (0.2-1) 09/17/18 23:13 Direct Bilirubin mg/dl (0-0.2) 09/17/18 23:13 AST 29 U/L (15-37) 09/17/18 23:13 ALT 28 U/L (12-78) 09/17/18 23:13 Alkaline Phosphatase 74 U/L (45-117) 09/17/18 23:13 Ammonia 21.0 umol/L (11-32) 09/17/18 23:13 Total Protein 7.5 gm/dl (6.4-8.2) 09/17/18 23:13 Albumin 3.5 gm/dl (3.4-5.0) 09/17/18 23:13 Lipase 123 U/L (73-393) 09/17/18 23:13 Specimen Hemolysis 09/17/18 23:13 Urine Opiates Screen Neg (Neg) 09/18/18 01:59 Ur Methadone, Qual Neg (Neg) 09/18/18 01:59 Urine Barbiturates Neg (Neg) 09/18/18 01:59 Ur Phencyclidine (PCP) Neg (Neg) 09/18/18 01:59 U Amphetamin/Meth Scrn Neg (Neg) 09/18/18 01:59 MDMA (Ecstasy) Screen Neg (Neg) 09/18/18 01:59 U Benzodiazepines Scrn Neg (Neg) 09/18/18 01:59 Ur Cocaine Metabolite Neg (Neg) 09/18/18 01:59 U Marijuana (THC) Screen Neg (Neg) 09/18/18 01:59 Ethyl Alcohol mg/dL < 3.0 mg/dl (0-3) 09/17/18 23:13 Diagnostic Findings [facility] Patient: APRIL RIVERA I (Male) Age: 57 MR #: [id number] Status: ER Date: 09/18/18 00:59 Slices: 107 History: ETOH, FOUND ON FLOOR AT HOME, AMS Priors: Tech: LindachandanArthurie @ [phone] Exams: CT HEAD Accession Numbers: [id number] Preliminary Findings Only See Final Report For Complete Findings CT HEAD: Comparison 09/14/2018 No evidence of intracranial hemorrhage, mass effect or calvarial fracture Ventricles are unchanged in size and remain midline Visualized paranasal sinuses, mastoids and orbits appear within limits Radiologist: Deng Storey M.D. Study ready at 01:08 and initial results transmitted at 01:25 *This report constitutes a preliminary interpretation only. Non-acute findings felt to be unrelated to the clinical presentation may not be discussed in this report. The study will be interpreted and a final report will be generated by the local Radiologist the following shift. To reach the hospital radiology department call [phone]. If a discrepancy is found between the preliminary and final interpretations of this study, please notify us via our Client Portal at [email or web address], under [email or web address] Exams. You can also fax this report with a description of the discrepancy, or include the final report, to our daytime fax number [phone]. If faxing, please indicate the severity of discrepancy using one of the following categories: [ ] 1 - Agree/Informational [ ] 2 - Unlikely to Affect Management [ ] 3 - Possible Eventual Change of Management [ ] 4 - Probable Immediate Change of Management For all other patient related information, please fax us at [phone]. [facility] Patient: APRIL RIVERA I (Male) Age: 57 MR #: [id number] Status: ER Date: 09/18/18 01:00 Slices: 1985 History: ETOH, FOUND ON FLOOR AT HOME, AMS Priors: Tech: LindachandanBasilio @ [phone] Exams: CT C SPINE Accession Numbers: [id number] Preliminary Findings Only See Final Report For Complete Findings CT C SPINE: Comparison 09/01/2018 No fracture or malalignment Spondylosis/discogenic change again noted Radiologist: Deng Storey M.D. Study ready at 01:08 and initial results transmitted at 01:29 *This report constitutes a preliminary interpretation only. Non-acute findings felt to be unrelated to the clinical presentation may not be discussed in this report. The study will be interpreted and a final report will be generated by the local Radiologist the following shift. To reach the hospital radiology department call [phone]. If a discrepancy is found between the preliminary and final interpretations of t his study, please notify us via our Client Portal at [email or web address], under [email or web address] Exams. You can also fax this report with a description of the discrepancy, or include the final report, to our daytime fax number [phone]. If faxing, please indicate the severity of discrepancy using one of the following categories: [ ] 1 - Agree/Informational [ ] 2 - Unlikely to Affect Management [ ] 3 - Possible Eventual Change of Management [ ] 4 - Probable Immediate Change of Management For all other patient related information, please fax us at [phone]. [facility] Patient: APRIL RIVERA I (Male) Age: 57 MR #: [id number] Status: ER Date: 09/18/18 01:00 Slices: 825 History: ETOH, FOUND ON FLOOR AT HOME, AMS Priors: Tech: Arthur Murrietaie @ [phone] Exams: CT ABDOMEN & PELVIS With Contrast Contrast: IV Amt: 93 ML OPTIRAY 320 Accession Numbers: [id number] Preliminary Findings Only See Final Report For Complete Findings CT ABDOMEN & PELVIS With Contrast: Comparison 09/01/2018 No evidence of acute intra-abdominal traumatic injury No acute fracture identified Bilateral common iliac and internal iliac aneurysms appear unchanged No retroperitoneal or pelvic hematoma No bowel dilation, free air or free fluid Multilevel compression deformities appear unchanged Radiologist: Deng Storey M.D. Study ready at 01:08 and initial results transmitted at 01:46 *This report constitutes a preliminary interpretation only. Non-acute findings felt to be unrelated to the clinical presentation may not be discussed in this report. The study will be interpreted and a final report will be generated by the local Radiologist the following shift. To reach the hospital radiology department call [phone]. If a discrepancy is found between the preliminary and final interpretations of this study, please notify us via our Client Portal at [email or web address], under QA Exams. You can also fax this report with a description of the discrepancy, or include the final report, to our daytime fax number [phone]. If faxing, please indicate the severity of discrepancy using one of the following categories: [ ] 1 - Agree/Informational [ ] 2 - Unlikely to Affect Management [ ] 3 - Possible Eventual Change of Management [ ] 4 - Probable Immediate Change of Management For all other patient related information, please fax us at [phone]. [facility] Patient: APRIL RIVERA I (Male) Age: 57 MR #: [id number] Status: ER Date: 09/18/18 01:01 Slices: 572 History: ETOH, FOUND ON FLOOR AT HOME, AMS Priors: Tech: Basilio Murrieta @ [phone] Exams: CT CHEST With Contrast Contrast: IV Amt: 93 ML OPTIRAY 320 Accession Numbers: [id number] Preliminary Findings Only See Final Report For Complete Findings CT CHEST With Contrast: Thoracic aorta within limits AICD and coronary calcifications No pericardial or pleural effusion No pneumothorax Left more than right dependent basilar atelectasis with elevation of the left hemidiaphragm No acute fracture identified Radiologist: Deng Storey M.D. Study ready at 01:12 and initial results transmitted at 01:37 *This report constitutes a preliminary interpretation only. Non-acute findings felt to be unrelated to the clinical presentation may not be discussed in this report. The study will be interpreted and a final report will be generated by the local Radiologist the following shift. To reach the hospital radiology department call [phone]. If a discrepancy is found between the preliminary and final interpretations of this study, please notify us via our Client Portal at [email or web address], under [email or web address] [email or web address]. You can also fax this report with a description of the discrepancy, or include the final report, to our daytime fax number [phone]. If faxing, please indicate the severity of discrepancy using one of the following categories: [ ] 1 - Agree/Informational [ ] 2 - Unlikely to Affect Management [ ] 3 - Possible Eventual Change of Management [ ] 4 - Probable Immediate Change of Management For all other patient related information, please fax us at [phone]. Code Status & VTE Plan Code Status Full code VTE Prophylaxis Plan VTE Prophylaxis will be ordered: Yes (1) Altered mental status Altered mental status type: unspecified Qualified Code(s): R41.82 - Altered mental status, unspecified (2) Syncope Syncope type: unspecified Qualified Code(s): R55 - Syncope and collapse
--- NOTE | 2018-09-18 06:38 | CT Scan Report ---
CT cervical spine wo con CT DOSE: HISTORY: Trauma trauma, etoh TECHNIQUE: Multiaxial CT images of the cervical spine were performed and reformatted in the sagittal and coronal plane without the use of contrast. A dose lowering technique was utilized adhering to th e principles of ALARA. COMPARISON: None. FINDINGS: No fractures. No subluxation. Prevertebral soft tissues and the C1-C2 interval are intact. No pneumothorax. Significant degenerative change C6-T1. No evidence for compression deformity. IMPRESSION: No fractures within the cervical spine. Moderate degenerative change. The above report was generated using voice recognition software. It may contain grammatical, syntax or spelling errors. Electronically signed by: Yaron Lott M.D. 09/18/2018 6:36 AM
--- NOTE | 2018-09-18 06:41 | CT Scan Report ---
CT head/brain wo con CLINICAL HISTORY: 57 years-old Male with ams, possible fall. Acutely altered mental status with fall TECHNIQUE: Multiple axial CT images of the head were obtained without contrast. A dose lowering tech nique was utilized adhering to the principles of ALARA. COMPARISON: CT head 09/14/2018. FINDINGS: Motion degraded exam. No acute intracranial hemorrhage, midline shift, intracranial mass, hydrocephal us, territorial ischemia or abnormal extra-axial collection. The calvarium is intact. The paranasal sinuses, mastoid air cells, and middle ear cavities are clear . IMPRESSION: No acute intracranial abnormality or calvarial fracture. The above report was generated using voice recognition software. It may contain grammatical, syntax o r spelling errors. Electronically signed by: Keaton Schuler M.D. 09/18/2018 6:40 AM
--- NOTE | 2018-09-18 07:17 | CT Scan Report ---
CHEST, ABDOMEN, AND PELVIS CT WITH CONTRAST CT DOSE: 4433.72 mGy.cm HISTORY: trauma, etoh TECHNIQUE: Multiaxial CT images of the chest, abdomen, and pelvis were performed following the intrav enous administration of contrast. A dose lowering technique was utilized adhering to the principles of ALARA. COMPARISON: Abdomen and pelvis CT 09/01/2018. Chest CTA 09/13/2017. FINDINGS: No pneumothorax. No pleural effusions. Bilateral lower lobe densities are nonspecific but f avor atelectasis/dependent change. The central airways are patent. There is a left-sided pacemaker. O ld, healed right-sided rib fractures. No acute fractures identified within the chest. The mediastinal vascular structures are within normal limits. No mediastinal or hilar lymphadenopathy. Elevation of the left hemidiaphragm, unchanged. Multiple mild to moderate compression deformities within the lower thoracic and lumbar spine. These r emain unchanged and are likely old. No acute fractures identified. No pneumoperitoneum. No pneumatosi s. The liver, gallbladder, pancreas, adrenal glands, and kidneys are unremarkable. No retroperitoneal lymphadenopathy. No change in the distal abdominal aortic, bilateral common iliac, and bilateral int ernal iliac artery aneurysms. The bladder is unremarkable. No pelvic free fluid. No bowel wall thicke tyrel or obstruction. Normal appendix. IMPRESSION: 1. No acute traumatic process within the chest, abdomen, or pelvis. 2. Bibasilar lower lobe densities are nonspecific but favor atelectasis/dependent change. 3. Multiple old compression deformities within the lower thoracic and lumbar spine. No acute fracture s identified. 4. No change in the distal abdominal aorta, bilateral common iliac, and bilateral internal iliac dejon ry aneurysms. Electronically signed by: Ananda Zazueta M.D. 09/18/2018 7:15 AM
[2018-09-18] MEDS: AZELASTINE~ORDER AWAITING ACTION SCH ×2 (07:39→16:57)
[2018-09-18] MEDS: FLUTICASONE/SALMETEROL 250/50 (ADVAIR) 14 PUFF/1 INHALER INH SCH ×2 (07:45→20:53)
[2018-09-18] MEDS: BusPIRone 15 MG TAB PO SCH ×3 (07:45→20:53)
[2018-09-18] MEDS: ASPIRIN 81 MG ECTAB PO SCH (07:45)
[2018-09-18] MEDS: CARVEDILOL 3.125 MG TAB PO SCH ×2 (07:45→20:53)
[2018-09-18] MEDS: CLOPIDOGREL BISULFATE 75 MG TAB PO SCH (07:46)
[2018-09-18] MEDS: MULTIVITAMIN TAB PO SCH (07:46)
[2018-09-18] MEDS: APIXABAN 5 MG TABLET PO SCH ×2 (07:46→20:53)
[2018-09-18] MEDS: PANTOprazole 40 MG TAB PO SCH (07:46)
[2018-09-18] MEDS: SERTRALINE HCL 100 MG TABLET PO SCH (07:46)
[2018-09-18] MEDS: CETIRIZINE HCL 10 MG TABLET PO SCH (07:46)
[2018-09-18] MEDS: AMIODARONE 200 MG TAB PO SCH ×2 (07:46→20:53)
[2018-09-18] MEDS: BACLOFEN 20 MG TAB PO SCH ×3 (07:47→20:54)
[2018-09-18] MEDS: IPRATROPIUM BROMIDE/ALBUTEROL respimat INH INH SCH ×3 (07:47→20:53)
[2018-09-18] MEDS ORDERED: GINKGO BILOBA 120 MG PO SCH (09:00)
[2018-09-18] MEDS ORDERED: NON-FORMULARY MEDICATION (Coenzyme Q10 [Co Q-10] 200 MG) PO SCH (09:00)
[2018-09-18] MEDS ORDERED: [UNRECOGNIZED DRUG - OTHER] PO SCH (12:00)
--- NOTE | 2018-09-18 15:09 | Medical Student Progress Note ---
Date of Service September 18, 2018 Assessment & Plan (1) Altered mental status: Through talking with Mr. Morgan, especially after talking with him yesterday, I do not get the sense that he is delirious. We went through the CAM- ICU protocol and he did not pass, though did so because he was unwilling to do the SAVEAHAART hard squeeze and he answered every logic question incorrectly, leading me to believe he is more uncooperative than AMS. He was not oriented to person, place, or time, though did say he recognized me and though his speech patterns seemed to remember me, including how he addressed me and how he said goodbye. Similarly, when Dr. Martin came in he behaved as though he recognized h im but said that he had no idea who he was or that he was a doctor. Mr. Morgan had a difficulty conversation with palliative care yesterday and when I spoke to him afterwards yesterday morning he said it had affected him and that he would have to think more about it. He was concerned that it indicated he was imminently dying and even after we discussed it at length yesterday before discharge he seemed somewhat shaken on the topics of life and . My sense is that it is this life and anxiety, which seems to be a long-standing concern for Mr. Morgan given his poor health and poor support system, which resulted in his unusual behaviors when he returned home yesterday afternoon. He was unwilling to engage on this front when I spoke with him this morning, and I think he may need some time to cool out and then hopefully can have a good conversation with one of his providers when he feels more comfortable and able to open up. I did a chart review of his previous psychiatric history which in our EMR is not very specific based on what I could find, and it seems his psychiatric care is through Dr. Marie with the [facility], and that she has been prescribing sertraline, quetiapine, and buspirone for depression/anxiety/insomnia for the past few years. He may benefit from additional psychiatric care and we appreciate the psychiatric consultation here in the hospital. At baseline Mr. Morgan has some anxiety and paranoid thinking on mental status exam, and this episode could be an exacerbation of that. Notably he did increase his dose of baclofen to 20mg tid yesterday, and baclofen-induced encephalopathy is possible, although I would suspect he would have accompanying hypotonia and his strength appears to be intact. Altered mental status type: unspecified Qualified Code(s): R41.82 - Altered mental status, unspecified (2) Goals of care, counseling/discussion: As above. (3) Coronary artery disease: No apparent symptoms on history or exam. Continue his current medication regimen. (4) Atrial fibrillation: In sinus rhythm today with no apparent symptoms. Continue current meds. (5) CHF (congestive heart failure): No apparent symptoms on history or exam. Continue current meds. (6) Hypertension: No apparent symptoms on history or exam. Continue current meds. (7) Syncope: No apparent symptoms on history or exam. States he is not experiencing lightheadedness and his BP is stable. Continue current meds. Syncope type: unspecified Qualified Code(s): R55 - Syncope and collapse (8) Ischemic cardiomyopathy: No apparent symptoms on history or exam. Continue current meds. (9) COPD (chronic obstructive pulmonary disease): No apparent symptoms on history or exam. Continue current meds. (10) GERD (gastroesophageal reflux disease): Continue ranitidine and pantoprazole. (11) Chronic low back pain: He says he is experiencing no back pain or back spasms today. Continue current medications. Subjective After talking to Mr. Morgan all week as part of his previous admission for lightheadedness and back pain, he was notably different today in terms of activity and behavior. Whereas yesterday he was animated and talkative when we had a 30 minute-long conversation about his health and well-being, today he would not open his eyes and talked little despite telling me his eyes were open. He grunted frequently and kept repeating the same few phrases "I don't know," "Not good," "I don't remember." Mr. Morgan said he recognized me but couldn't remember my name, the day, where he was, or even his own name. When assessing his concentration and attention, Mr. Morgan was able to say the days of the week without issue, but would not attempt to say them in reverse. In discussing various CAM-ICU questions, Mr. Morgan notably answered every question incorrectly. At one point in the conversation he said "I messed up" but would not elaborate. He also had one brief episode of sing-song clang association. As I was leaving Mr. Morgan said "have a good day. I really mean that" which is how he has ended previous conversations with me over the past few days. He says he is not experiencing any lightheadedness or back pain today, butall he would say about those topics was "no." Cardiovascular: no lightheadedness Musculoskeletal: no back pain Physical Exam Vital Signs (Past 24 Hours): Last Vital Signs Temp 36.7 C 09/18/18 07:18 Pulse 98 H 09/18/18 07:18 Resp 18 09/18/18 07:18 BP 113/73 09/18/18 07:18 Pulse Ox 92 09/18/18 07:18 Constitutional: WD/WN, vitals as above + behavioral limitations; no acute distress and + uncooperative ENMT: external ear and nose normal, oropharynx normal Respiratory: normal respiratory effort, lungs clear to auscultation Cardiovascular: RRR, no murmur, no edema Gastrointestinal (Abdomen): Inspection/Auscultation: abdomen normal to inspection and normal bowel sounds Musculoskeletal: no cyanosis or clubbing, extremities motor strength 5/5 Skin: no rashes, warm and dry Psychiatric: Orientation: + not oriented to person, + not oriented to place, + not oriented to time and + uncooperative Eye Contact: + poor eye contact Motor Behavior: + psychomotor retardation Affect: + flat affect (seemed both unsure and unconcerned regarding a variety of topics) Thought Process: + clanging; + thought process not linear or logical and + thought process not clear or coherent Thought Content: + guilt Cognition: + recent memory not intact and + remote memory not intact Insight: + poor insight Judgement: + poor judgement
--- NOTE | 2018-09-18 16:04 | Psychiatric Consultation ---
Date of Consultation September 18, 2018 Impression / Recommendations Impression 57-year-old male admitted medically from 09/14/18 - 09/17/18, with readmission on day of discharge due to concern for AMS. Seen on our service for recommendations regarding etiology of AMS. At this time, his presentation is perplexing. Alcohol level and toxicology were negative, imaging obtained was not suggestive of abnormalities consistent with presentation, and blood work is reportedly not out of normal range given his extensive medical history. Differential includes: encephalopathy, delirium, medication overuse/misuse, TIA, delayed symptomatology from fall suffered prior to initial admission, other unknown causes, and the possibility of malingering has been suggested. This acute change in mental status is concerning, and ongoing medical and historical evaluation should continue in order to clearly rule out a clinical cause for his AMS. While malingering may be a possibility, given frequent presentations, we are unable to gather specifically what the patient plans to gain from his rapid re-admission. While this diagnosis would explain his uncooperative behavior and evasiveness during interviews, it does not as clearly explain the fact that he was covered in his own feces and required significant assistance when found by his staff. He has historically been stable on his psychiatric medication regimen, and would suggest continuing at this time. Given this abrupt change, with sudden onset - would suggest ongoing observation on the medical floor - as acute intervention may be required. Would monitor to determine if mental status clears with time and observation. Would suggest continuing to engage the patient in conversation to determine any new information which would be beneficial for his treatment. Will continue to follow closely with the patient and attempt to gather additional information which may better clarify his presentation. We appreciate the opportunity to participate in the care of this patient. Supplemental gathered by psychiatric nurse liaisons suggests that this presentation is different from his normal behavior. They state his is generally able to function with little assistance and has not previously appeared altered. Supports are not aware of a significant psychiatric history, aside from reported depression, anxiety, and insomnia. Will attempt to gather additional information from his daughter, if patient is willing to sign a release. Dr. Carlos Walton was directly involved in review and discussion of the patient's case and participated in medical decision making regarding treatment recommendations. CPT Code Initial Consultation: 62830 Psych History Identifying Data 57-year-old male admitted medically on 09/17/18 - the day he had been discharged from a 4 day hospitalization. Pt has an extensive medical history significant for CHF, CKD stage II, frequent syncopal episodes, GERD CAD/PVD, HTN, and cardi ac arrhythmias. He was admitted on 09/14/18 following several syncopal episodes, believing he required medical attention. He had been discharged on 09/17/18 and subsequently readmitted due to current AMS. EMS was callled after staff at his boarding home, [place], found the patient altered and covered in feces, surround by alcohol bottles. Psychiatric consultation is requested to evaluate AMS. Information is gathered from previous hospital documentation, as interaction with the patient is not productive or reliable. Chief Complaint "Not good, not good, not good." History of Present Illness Eliseo Morgan is a 57-year-old male admitted medically on 09/17/18 due to AMS. Pt had been hospitalized at [facility] from 09/14/18 - 09/17/18 following several syncopal episodes. He was discharged home, and re-admitted on the same day. Documentation suggests that the patient was found by staff at his boarding home, covered in his feces with altered mental status. He reported required significant assistance cleaning up. EMS were called and he was brought back to the ED. It is reported that there may be some concern for malingering, as there is suggestion the patient does not like his living situation. There was also question if the conversation about palliative care prior to patient's discharge was upsetting in some way, leading to his return. Dr. Martin and medical student Mario Iglesias reviewed the case with this provider, questioning if there is a behavioral component to patient's presentation, given no clear medical cause for AMS and belief he may be intentionally uncooperative during assessments. Psychiatric consultation was requested to evaluate AMS. Pt's case reviewed throughout the day with psychiatric liaison nurses, who have been able to collaborate with patient's nurse navigator and home health nurse. Both suggest that the patient's behavior is unusual and not aligned with his standard presentation. They both speak with the patient weekly and feel the described behavior is not consistent with renny's baseline. Pt was seen by this provider to assess for AMS. He states he is "not good, not good, not good." Pt is unable to tell this provider why he is in the hospital and what he feels is going on. He alternates between stating he does not know and that he does not want to talk about it. Many attempts were made to gather history from the patient, who is only able to be minimally cooperative, but does not provide any constructive information. Given concern that he was upset by the palliative care consultation, this provider asked about the conversation "about discussing your desires for the future." Pt seemed to recall the conversation, despite stating he did not remember - as he could identify the conversation from this description and stating it was "rotten bad, rotten bad, rotten bad." He states he does not want to talk about it. When asked how patient felt his mood has been, he reports, "not worth a sh*t". He is not able to identify how long he has been feeling this way. He initially tells this provider he does not know the medications he is on for mood and is unable to identify them when given a list - abruptly answering "no" to each option provided. He later states, "I know my meds, I know why I take them. I don't want to talk about it." Pt gives frequent contradictory information. Pt was asked what he needs from his hospitalization and was given the options of: someone to talk to, medication changes, or just some time. Pt states "just time, just time." When asked how long he needed, one hour, one day, one week - he states "one day, one day." He is unable to tell me what will happen after a day. This provider is unable to gather any productive information on this assessment, as patient then begins saying "Ho, ho, ho. [place], deer, deer. Lub, lub, lub." Past Psychiatric History Previous Psych History: History of depression, anxiety, and insomnia is reported. Pt is reportedly prescribed sertraline, buspirone, and quetiapine for these concerns, with medication management by his PCP. Supplement information provided by nurse navigator and home health nurse suggest no significant past psychiatric history. Current Psychiatric Diagnosis: Depression and anxiety Outpatient Services: Medication management by PCP Previous Psych Admissions: Denied Past Medication Trials: Documentation suggests at least: 1. venlafaxine 2. hydroxyzine 3. sertraline 4. buspirone 5. quetiapine Allergies Allergy/AdvReac Type Severity Reaction Status Date / Time heparin Allergy Severe SEE COMMENT Verified 09/18/18 04:17 Iodinated Contrast- Oral and Allergy Severe swelling, Verified 09/18/18 04:17 IV Dye hives ibuprofen AdvReac Intermediate nausea Verified 09/18/18 04:17 vomiting Home Medications Home Medications Medication Instructions Recorded Confirmed Type aspirin 81 mg PO QAM 03/02/18 09/18/18 History atorvastatin 80 mg PO HS 03/02/18 09/18/18 History azelastine 1 spray INTRANASAL BID PRN 03/02/18 09/18/18 History buspirone 15 mg PO TID 03/02/18 09/18/18 History albuterol sulfate [Ventolin HFA] 2 puff INHALATION Q6H PRN 03/03/18 09/18/18 History clopidogrel 75 mg PO QAM 03/03/18 09/18/18 History loratadine [Claritin] 10 mg PO QAM 03/03/18 09/18/18 History melatonin 10 mg PO HS 03/03/18 09/18/18 History multivitamin [Daily Multiple] 1 tab PO QAM 03/03/18 09/18/18 History oxycodone-acetaminophen 1 tab PO Q4H PRN 03/03/18 09/18/18 History pantoprazole 40 mg PO QAM 03/03/18 09/18/18 History polyethylene glycol 3350 [Miralax] 17 g PO DAILY PRN 03/03/18 09/18/18 History quetiapine 200 mg PO HS 03/03/18 09/18/18 History ranitidine HCl 150 mg PO Q12H 03/03/18 09/18/18 History sertraline 150 mg PO QAM 03/03/18 09/18/18 History spironolactone 50 mg PO 1600 03/03/18 09/18/18 History diclofenac sodium [Voltaren] 4 gm TOP QID PRN 03/30/18 09/18/18 History amiodarone 200 mg PO BID #60 tab 04/30/18 09/18/18 Rx acetaminophen [Tylenol Extra 1,000 mg PO Q6H PRN 05/22/18 09/18/18 History Strength] flaxseed oil-omega 3,6,9 1 cap PO 1200 05/22/18 09/18/18 History fluticasone propion-salmeterol 1 puff INHALATION BID 06/22/18 09/18/18 History [Advair Diskus] Calcium Magnesium 0 mg PO DAILY 09/01/18 09/18/18 History Combivent Respimat 1 puff INHALATION TID 09/01/18 09/18/18 History Probiotic 0 mmu cells PO DAILY 09/01/18 09/18/18 History Zyrtec 10 mg PO DAILY 09/01/18 09/18/18 History carvedilol [Coreg] 3.125 mg PO BID 09/01/18 09/18/18 History coenzyme Q10 [Co Q-10] 200 mg PO DAILY 09/01/18 09/18/18 History docusate sodium [Colace] 200 mg PO HS 09/01/18 09/18/18 History ginkgo biloba 120 mg PO DAILY 09/01/18 09/18/18 History ondansetron HCl [Zofran] 4 mg PO QID PRN 09/01/18 09/18/18 History saw palmetto 0 mg PO BID 09/01/18 09/18/18 History torsemide 20 mg PO BID 09/01/18 09/18/18 History Eliquis 5 mg PO BID #60 tab 09/04/18 09/18/18 Rx baclofen 20 mg PO TID 30 Days #90 tab 09/17/18 09/18/18 Rx Substance Abuse History Reported history of cocaine and heroin abuse - received two DUI's one in 2009 and one in 2016. Reportedly spent time in senior care due to possession of drug paraphernalia and heroin. Personal History Living Arrangements: Boarding [place] ([place]) Beliefs That Will Affect Care: None History of Legal Problems: Previous documentation suggests time spent in snf due to possession of drug paraphernalia and heroin in 2014. Patient History Medical History Anxiety (Chronic) Diastolic CHF (Resolved) Hypotension (Resolved) NSTEMI (non-ST elevated myocardial infarction) (Resolved) Systolic CHF (Resolved) CHF (congestive heart failure) (Resolved) Anemia of chronic disease History of venous thromboembolism History of orthostatic hypotension PVD (peripheral vascular disease) Paroxysmal A-fib COPD (chronic obstructive pulmonary disease) Ischemic cardiomyopathy Acid reflux Aneurysm pt reports multiple aneurysms of LLE w/ stents Anxiety Atrial fibrillation COPD (chronic obstructive pulmonary disease) CVA (cerebral vascular accident) no residual effects Cardiac LV ejection fraction <20% Cardiomyopathy Collar bone fracture Compression fracture Congestive heart failure DJD (degenerative joint disease) Hepatitis C History of left heart catheterization x10 per pt Hyperlipidemia Kidney disease DELICIA (obstructive sleep apnea) On Coumadin for atrial fibrillation Pacemaker Presence of combination internal cardiac defibrillator (ICD) and pacemaker Rib fractures Weakness Surgical History Status post popliteal-distal bypass surgery H/O rotator cuff surgery right S/P insertion of iliac artery stent Family History Other No significant family history Social History Preferred Language: Yakut Communication Ability: Impaired Check Viewer Required: No Beliefs That Will Affect Care: None marital status: Current Living Situation: Boarding Home Current Living Situation Comment: [facility] current occupational status: disabled Other Information That Helps Us Care for You: No Feels Safe at Home: Yes Safety Concerns: Feels Safe At This Time Smoking Status: Never smoker Second Hand Exposure: No Hx Alcohol Use: Yes Hx Substance Use: No Physical Exam Psychiatric: Orientation: alert; + not oriented to person, + not oriented to place, + not oriented to time and + uncooperative Apperance: + disheveled (long unruly hair, unkempt facial hair); + inappropriately dressed (in hospital gown, but not adequate covering his body), + inappropriately groomed and + did not appear stated age (appearing older than stated age) Eye Contact: + poor eye contact (would not open his eyes, even when asked repeatedly ) Demonstrates constant oral movements of lip licking and smacking - is edentulous; appears restless as frequently running hands through hair and re- positioning himself in bed minimall productive, but repetitive in responses often in groups of 3 Affect: + flat affect; no depressed affect, no anxious affect and + mood not congruent with affect "no good, no good, no good" and "not worth a sh*t" Thought Process: + looseness of associations; + thought process not goal directed, + thought process not linear or logical and + thought process not clear or coherent Unable to adequate be assessed due to condition Cognition: + recent memory not intact and + remote memory not intact Insight: + poor insight Judgement: + poor judgement Vital Signs (Past 24 Hours): Last Vital Signs Temp 36.8 C 09/18/18 14:50 Pulse 91 H 09/18/18 14:50 Resp 20 09/18/18 14:50 BP 116/72 09/18/18 14:50 Pulse Ox 91 09/18/18 14:50 Review of Systems Unable to adequately participate due to altered mental status Results & Data Medications Administered Albuterol (Combivent Respimat) 1 puffs INH TID [facility]KE Stop: 10/18/18 08:59 Last Admin: 09/18/18 13:20 Dose: 1 puffs Documented by: [id number] Admin: 09/18/18 07:47 Dose: 1 puffs Documented by: [id number] Amiodarone HCl (Cordarone) 200 mg PO BID [facility] Stop: 10/18/18 08:59 Last Admin: 09/18/18 07:46 Dose: 200 mg Documented by: [id number] Apixaban (Eliquis) 5 mg PO BID [facility] Stop: 10/18/18 08:59 Last Admin: 09/18/18 07:46 Dose: 5 mg Documented by: [id number] Aspirin (Ecotrin Ectab) 81 mg PO QAM [facility] Stop: 10/18/18 08:59 Last Admin: 09/18/18 07:45 Dose: 81 mg Documented by: [id number] Baclofen (Lioresal) 20 mg PO TID [facility] Stop: 10/18/18 08:59 Last Admin: 09/18/18 13:20 Dose: 20 mg Documented by: [id number] Admin: 09/18/18 07:47 Dose: 20 mg Documented by: [id number] Buspirone HCl (Buspar) 15 mg PO TID [facility] Stop: 10/18/18 08:59 Last Admin: 09/18/18 13:20 Dose: 15 mg Documented by: [id number] Admin: 09/18/18 07:45 Dose: 15 mg Documented by: [id number] Carvedilol (Coreg) 3.125 mg PO BID [facility] Stop: 10/18/18 08:59 Last Admin: 09/18/18 07:45 Dose: 3.125 mg Documented by: [id number] Cetirizine HCl (Zyrtec) 10 mg PO DAILY [facility] Stop: 10/18/18 08:59 Last Admin: 09/18/18 07:46 Dose: 10 mg Documented by: [id number] Clopidogrel Bisulfate (Plavix) 75 mg PO QAM [facility] Stop: 10/18/18 08:59 Last Admin: 09/18/18 07:46 Dose: 75 mg Documented by: [id number] Ioversol (Optiray 320 100ml) 100 ml IV ONCE PRN PRN Reason: Interaction Checking Stop: 09/22/18 01:03 Last Admin: 09/18/18 01:04 Dose: 93 ml Documented by: [id number] Miscellaneous (Order Awaiting Action) 1 ea N/A QS [facility] Stop: 10/18/18 07:59 Last Admin: 09/18/18 07:39 Dose: Not Given Documented by: [id number] Multivitamins (Multivitamin Tab) 1 tab PO [facility] Stop: 10/18/18 08:59 Last Admin: 09/18/18 07:46 Dose: 1 tab Documented by: [id number] Ondansetron HCl (Zofran) 4 mg PO QID PRN PRN Reason: Nausea Stop: 10/18/18 05:14 Last Admin: 09/18/18 06:23 Dose: 4 mg Documented by: [id number] Pantoprazole Sodium (Protonix) [facility] Stop: 10/18/18 08:59 Last Admin: 09/18/18 07:46 Dose: 40 mg Documented by: [id number] Ranitidine HCl (Zantac) 150 mg PO Q12H [facility] Stop: 10/18/18 08:59 Last Admin: 09/18/18 07:47 Dose: 150 mg Documented by: [id number] Fluticasone/Salmeterol (Advair Diskus 250/50) 1 puffs INH BID [facility] Stop: 10/18/18 08:59 Last Admin: 09/18/18 07:45 Dose: 1 puffs Documented by: [id number] Sertraline HCl (Zoloft) [facility] Stop: 10/18/18 08:59 Last Admin: 09/18/18 07:46 Dose: 150 mg Documented by: [id number]
[2018-09-18] MEDS: SPIRONOLACTONE 25 MG TAB PO SCH (16:56)
[2018-09-18] MEDS: ATORVASTATIN 40 MG TAB PO SCH (20:53)
[2018-09-18] MEDS: QUETIAPINE FUMARATE 100 MG TABLET PO SCH (20:53)
[2018-09-18] MEDS: DOCUSATE SODIUM 100 MG CAP PO SCH (20:54)
[2018-09-19] MEDS: AZELASTINE~ORDER AWAITING ACTION SCH ×4 (00:15→23:36)
[2018-09-19] MEDS: OXYCODONE/ACETAMINOPHEN 10-325 TAB PO PRN (06:47)
[2018-09-19] MEDS: IPRATROPIUM BROMIDE/ALBUTEROL respimat INH INH SCH ×3 (08:51→21:58)
[2018-09-19] MEDS: FLUTICASONE/SALMETEROL 250/50 (ADVAIR) 14 PUFF/1 INHALER INH SCH ×2 (08:51→21:58)
[2018-09-19] MEDS ORDERED: LORazepam 1 MG/2 ML VIAL IV ONE (09:00)
[2018-09-19] MEDS ORDERED: NON-FORMULARY MEDICATION (Torsemide 20 MG) PO SCH (09:00)
[2018-09-19] MEDS: CLOPIDOGREL BISULFATE 75 MG TAB PO SCH (10:00)
[2018-09-19] MEDS: CETIRIZINE HCL 10 MG TABLET PO SCH (10:00)
[2018-09-19] MEDS: PANTOprazole 40 MG TAB PO SCH (10:01)
[2018-09-19] MEDS: SERTRALINE HCL 100 MG TABLET PO SCH (10:01)
[2018-09-19] MEDS: AMIODARONE 200 MG TAB PO SCH ×2 (10:01→22:11)
[2018-09-19] MEDS: MULTIVITAMIN TAB PO SCH (10:01)
[2018-09-19] MEDS: ASPIRIN 81 MG ECTAB PO SCH (10:02)
[2018-09-19] MEDS: CARVEDILOL 3.125 MG TAB PO SCH ×2 (10:02→22:00)
[2018-09-19] MEDS: BusPIRone 15 MG TAB PO SCH (10:03)
[2018-09-19] MEDS: BACLOFEN 20 MG TAB PO SCH ×2 (10:03→14:19)
[2018-09-19] MEDS: APIXABAN 5 MG TABLET PO SCH ×2 (10:03→22:12)
[2018-09-19] MEDS: TORSEMIDE 10 MG TAB PO SCH ×2 (11:22→16:12)
--- NOTE | 2018-09-19 13:37 | Psychiatric Progress Note ---
Date of Service September 19, 2018 Impression / Recommendations Impression 57-year-old male admitted medically from 09/14/18 - 09/17/18, with readmission on day of discharge due to concern for AMS. Differential on initial consultation includes: encephalopathy, delirium, medication reaction, TIA, delayed symptomatology from fall suffered prior to initial admission, other unknown causes, and the possibility of malingering has been suggested. At this time remains quite delirious in appearance, other than concerns to rule in/out acute anoxic stroke, I'm concerned about potential drug-drug interactions with his psychiatric medications and baclofen. Doubt porsha but given degree of disorganization and restlessness, for this and concern on drug drug interactions will taper Buspar and Zoloft to minimal doses and reassess. Can always restart when clearer. Will leave Seroquel unchanged since mood stabilizing properties and no evidence of orthostasis right now (continue to monitor). Agitated catatonia can be added to the differential, particularly if responds/requires high dose Ativan. Interval History Chief Complaint "OK, OK, OK". Review of Systems Notes patient unable to complete Subjective Subjective Patient was seen & assessed and interval progress reviewed with nursing. Patient was unable to participate much in interview, very short attention span, restless, perseverative about leaving the room. He wouldn't redirect to his meal and appeared unsteady on his feet. 1-on-1 was recommended for fall risk and AMS and directed Ativan 1 mg IV acutely. Patient reportedly was calmer after. Case discussed with Dr. Martin as well and acute CT mainly looks at hemorrage, not anoxic injuries. He reported only recent med change was baclofen. Physical Exam Psychiatric Orientation: + not oriented x 3 and + uncooperative Apperance: + disheveled Eye Contact: + poor eye contact Motor Behavior: + psychomotor agitation (restlessness) repeating OK dear over and over Affect: + blunted affect Thought Process: + perseveration Thought Content: + preoccupation unable to assess Cognition: + attention not intact and + language not intact Insight: + impaired insight Judgement: + impaired judgement Vital Signs (Past 24 Hours) Last Vital Signs Temp 36.7 C 09/19/18 07:05 Pulse 85 09/19/18 07:05 Resp 20 09/19/18 07:05 BP 121/92 09/19/18 07:05 Pulse Ox 94 09/19/18 07:05 Results & Data Current Inpatient Medications Current Inpatient Medications: Current Inpatient Medications Acetaminophen (Tylenol) 1,000 mg PO Q8H PRN PRN Reason: Pain Stop: 10/18/18 05:14 Al Hydrox/Mg Hydrox/Simethicone (Maalox) 30 ml PO Q6H PRN PRN Reason: Dyspepsia Stop: 10/18/18 05:14 Albuterol (Ventolin Hfa) 2 puffs INH Q6H PRN PRN Reason: Shortness Of Breath Stop: 10/18/18 05:14 Albuterol (Combivent Respimat) 1 puffs INH TID [facility] Stop: 10/18/18 08:59 Last Admin: 09/19/18 08:51 Dose: 1 puffs Documented by: Amiodarone HCl (Cordarone) 200 mg PO BID [facility] Stop: 10/18/18 08:59 Last Admin: 09/19/18 10:01 Dose: 200 mg Documented by: Apixaban (Eliquis) 5 mg PO BID [facility] Stop: 10/18/18 08:59 Last Admin: 09/19/18 10:03 Dose: 5 mg Documented by: Aspirin (Ecotrin Ectab) 81 mg PO QAM [facility] Stop: 10/18/18 08:59 Last Admin: 09/19/18 10:02 Dose: 81 mg Documented by: Atorvastatin Calcium (Lipitor) 80 mg PO HS [facility] Stop: 10/18/18 20:59 Last Admin: 09/18/18 20:53 Dose: 80 mg Documented by: Baclofen (Lioresal) 20 mg PO TID [facility] Stop: 10/18/18 08:59 Last Admin: 09/19/18 10:03 Dose: 20 mg Documented by: Buspirone HCl (Buspar) 10 mg PO BID [facility] Stop: 10/19/18 20:59 Carvedilol (Coreg) 3.125 mg PO BID [facility] Stop: 10/18/18 08:59 Last Admin: 09/19/18 10:02 Dose: 3.125 mg Documented by: Cetirizine HCl (Zyrtec) 10 mg PO DAILY [facility] Stop: 10/18/18 08:59 Last Admin: 09/19/18 10:00 Dose: 10 mg Documented by: Clopidogrel Bisulfate (Plavix) 75 mg PO QAM [facility] Stop: 10/18/18 08:59 Last Admin: 09/19/18 10:00 Dose: 75 mg Documented by: Diclofenac Sodium (Voltaren 1% Top) 4 appln EXT QID PRN PRN Reason: Pain Stop: 10/18/18 05:14 Docusate Sodium (Colace) 200 mg PO [facility] Stop: 10/18/18 20:59 Last Admin: 09/18/18 20:54 Dose: Not Given Documented by: Ioversol (Optiray 320 100ml) 100 ml IV ONCE PRN PRN Reason: Interaction Checking Stop: 09/22/18 01:03 Last Admin: 09/18/18 01:04 Dose: 93 ml Documented by: Magnesium Hydroxide (Milk Of Magnesia) 30 ml PO Q6H PRN PRN Reason: Constipation Stop: 10/18/18 05:14 Miscellaneous (Order Awaiting Action) 1 ea N/A QS [facility] Stop: 10/18/18 07:59 Last Admin: 09/19/18 09:59 Dose: Not Given Documented by: [facility]it[facility] ([facility] Tab) [facility] Stop: 10/18/18 08:59 Last Admin: 09/19/18 10:01 Dose: 1 tab Documented by: Ondansetron HCl (Zofran) 4 mg PO QID PRN PRN Reason: Nausea Stop: 10/18/18 05:14 Last Admin: 09/18/18 06:23 Dose: 4 mg Documented by: Oxycodone/Acetaminophen (Percocet 10/325mg) 1 tab PO Q4H PRN PRN Reason: Pain Stop: 10/02/18 05:14 Last Admin: 09/19/18 06:47 Dose: 1 tab Documented by: Pantoprazole Sodium (Protonix) [facility] Stop: 10/18/18 08:59 Last Admin: 09/19/18 10:01 Dose: 40 mg Documented by: Polyethylene Glycol (Miralax Powder Packet) 17 gm PO DAILY PRN PRN Reason: Constipation Stop: 10/18/18 05:14 Quetiapine Fumarate (Seroquel) 200 mg PO [facility] Stop: 10/18/18 20:59 Last Admin: 09/18/18 20:53 Dose: 200 mg Documented by: Ranitidine HCl (Zantac) 150 mg PO Q12H [facility] Stop: 10/18/18 08:59 Last Admin: 09/19/18 10:02 Dose: 150 mg Documented by: Fluticasone/Salmeterol (Advair Diskus 250/50) 1 puffs INH BID [facility] Stop: 10/18/18 08:59 Last Admin: 09/19/18 08:51 Dose: 1 puffs Documented by: Sertraline HCl (Zoloft) 50 mg PO QAM [facility] Stop: 10/20/18 08:59 Spironolactone (Aldactone) 50 mg PO DAILY@1600 [facility] Stop: 10/18/18 15:59 Last Admin: 09/18/18 16:56 Dose: 50 mg Documented by: Torsemide (Demadex) 20 mg PO Q2D@0900,1700 [facility] Stop: 10/19/18 10:59 Last Admin: 09/19/18 11:22 Dose: 20 mg Documented by: Post Discharge Appointments Home Health Services Home Health Agency: [facility] CPT Code CPT Code 28257
[2018-09-19] MEDS ORDERED: LORazepam 1 MG/2 ML VIAL IV PRN (13:39)
[2018-09-19] MEDS: SPIRONOLACTONE 25 MG TAB PO SCH (16:12)
--- NOTE | 2018-09-19 16:24 | Hospitalist Progress Note ---
Date of Service September 19, 2018 Assessment & Plan (1) Altered mental status: Altered mental status- The patient presents to the emergency department after just being discharged from [facility] earlier in the day. Patient was reportedly found to have number of alcohol bottles in his room, but his alcohol level is normal during the ED assessment. His responses in the emergency department to ED personnel, psychiatry personnel and myself all appeared to be evasive, and there were concerns regarding ma lingering for unknown reasons, and concerns with him being unhappy at his current living arrangements at [place]. patient continues to have delirium, completely disoriented more abnormal movements with psychomotor agitation today, was flailing arms and legs, sitting up and then falling back down Ativan provided relief for several hours appreciate psychiatry evaluation, difficult to determine exact etiology of mental status change at this time could be interaction of Baclofen (just started several days prior) with Buspar and Zoloft Buspar and Zoloft doses will be lowered and Buspar will be lowered to 10mg TID from 20mg TID agitated catatonia also a possibility, will continue to use Ativan PRN ischemic stroke or anoxic injury would be on differential, cannot get MRI due to pacemaker, will get CT head in the morning since it would be further out and more likely to show some type of ischemia malingering seems less likely at this time given his degree of confusion and abnormal motor movements had discussed palliative care with the patient on 09/18 prior to discharge and he was having a difficult time with the concept, really upset him one thought that his behavior was in response to the discussion, could not cope and was acting out, again, seems less likely (2) Coronary artery disease: CAD/hypertension/CHF/atrial fibrillation/ischemic cardiomyopathy- All medications will be continued as before. (3) Atrial fibrillation: See above (4) CHF (congestive heart failure): patient is euvolemic watch for too much diuresis, patient not eating or drinking great will hold torsemide for time being, check BMP tomorrow monitor for any weight gain or edema and then resume the Torsemide patient has a history of getting too dry and experiencing orthostatic hypotension (5) Hypertension: See above (6) Syncope: recent history of such was attributed to orthostatic hypotension (7) Ischemic cardiomyopathy: very poor EF of 20% patient not a candidate for heart transplant given poor compliance and psychosocial issues involved palliative care prior to discharge on 09/18, he was not too receptive to the idea (8) COPD (chronic obstructive pulmonary disease): Continue usual inhalers. no wheezing on exam (9) PVD (peripheral vascular disease): See above (10) GERD (gastroesophageal reflux disease): Continue ranitidine and pantoprazole. Subjective patient acting agitated and aggressive this morning repeated movements like hitting himself in the head speaking about random things, cursing completely disoriented, no appetite discussed with psychiatry, some concerns for ischemic stroke cannot get MRI, would be too soon to get CT head, will obtain in the morning other differential for his behavior would drug interaction with Zoloft and Buspar with Baclofen, a new medication psychiatry plans to reduce the buspar and Zoloft will also reduce the Baclofen dose patient responded to Ativan in the morning, quite agitated in the afternoon at the time of my exam will give additional dose of Ativan Review of Systems Review of Systems: Unobtainable due to cognitive status Physical Exam Constitutional: WD/WN, vitals as above + altered mental status Eyes: PERRL; no conjunctival abnormality and no scleral abnormality ENMT: external ear and nose normal, oropharynx normal Neck: trachea midline, no thyromegaly Respiratory: normal respiratory effort, lungs clear to auscultation Cardiovascular: RRR, no murmur, no edema Gastrointestinal (Abdomen): normal bowel sounds, soft, nontender, no hepatosplenomegaly Musculoskeletal: no cyanosis or clubbing, extremities motor strength 5/5 Skin: no rashes, warm and dry Neurologic: patellar DTR's 2+ bilat, sensation intact and PERRL, EOMI, accommodation nl, no face palsy, no dysarthria Psychiatric: Orientation: + not alert (lethargic), + not oriented to person, + not oriented to place and + not oriented to time Eye Contact: + poor eye contact (will not open eyes) Motor Behavior: + psychomotor agitation Spee ch: + pressured speech Affect: + irritable affect Mood: + dysphoric mood Thought Process: + looseness of associations and + perseveration Thought Content: + delusions Cognition: + recent memory not intact and + attention not intact Lymphatic: no cervical or axillary lymphadenopathy Results & Data Vital Signs (Past 12 Hours) Vital Signs Temp Pulse Resp BP Pulse Ox 09/19/18 15:13 37.1 C 80 18 113/70 94 09/19/18 07:05 36.7 C 85 20 121/92 94 Medications Administered Current Inpatient Medications Acetaminophen (Tylenol) 1,000 mg PO Q8H PRN PRN Reason: Pain Stop: 10/18/18 05:14 Al Hydrox/Mg Hydrox/Simethicone (Maalox) 30 ml PO Q6H PRN PRN Reason: Dyspepsia Stop: 10/18/18 05:14 Albuterol (Ventolin Hfa) 2 puffs INH Q6H PRN PRN Reason: Shortness Of Breath Stop: 10/18/18 05:14 Albuterol (Combivent Respimat) 1 puffs INH TID [facility] Stop: 10/18/18 08:59 Last Admin: 09/19/18 14:19 Dose: 1 puffs Documented by: Amiodarone HCl (Cordarone) 200 mg PO BID [facility] Stop: 10/18/18 08:59 Last Admin: 09/19/18 10:01 Dose: 200 mg Documented by: Apixaban (Eliquis) 5 mg PO BID [facility] Stop: 10/18/18 08:59 Last Admin: 09/19/18 10:03 Dose: 5 mg Documented by: Aspir[facility] ([facility]rin Ectab) [facility] [place]: 10/18/18 08:59 Last Admin: 09/19/18 10:02 Dose: 81 mg Documented by: Atorvastatin Calcium (Lipitor) 80 mg PO HS [facility] Stop: 10/18/18 20:59 Last Admin: 09/18/18 20:53 Dose: 80 mg Documented by: Baclofen (Lioresal) 10 mg PO TID [facility] Stop: 10/19/18 20:59 Buspirone HCl (Buspar) 10 mg PO BID [facility] Stop: 10/19/18 20:59 Carvedilol (Coreg) 3.125 mg PO BID [facility] Stop: 10/18/18 08:59 Last Admin: 09/19/18 10:02 Dose: 3.125 mg Documented by: Cetirizine HCl (Zyrtec) 10 mg PO DAILY [facility] Stop: 10/18/18 08:59 Last Admin: 09/19/18 10:00 Dose: 10 mg Documented by: Clopidogrel Bisulfate (Plavix) 75 mg PO QAM [facility] Stop: 10/18/18 08:59 Last Admin: 09/19/18 10:00 Dose: 75 mg Documented by: Diclofenac Sodium (Voltaren 1% Top) 4 appln EXT QID PRN PRN Reason: Pain Stop: 10/18/18 05:14 Docusate Sodium (Colace) 200 mg PO [facility] Stop: 10/18/18 20:59 Last Admin: 09/18/18 20:54 Dose: Not Given Documented by: Lorazepam (Ativan) 1 mg in 2 mls @ 2 mls/min IV Q4H PRN PRN Reason: Agitation Stop: 10/19/18 13:38 Ioversol (Optiray 320 100ml) 100 ml IV ONCE PRN PRN Reason: Interaction Checking Stop: 09/22/18 01:03 Last Admin: 09/18/18 01:04 Dose: 93 ml Documented by: Magnesium Hydroxide (Milk Of Magnesia) 30 ml PO Q6H PRN PRN Reason: Constipation Stop: 10/18/18 05:14 Miscellaneous (Order Awaiting Action) 1 ea N/A [facility] Stop: 10/18/18 07:59 Last Admin: 09/19/18 16:12 Dose: Not Given Documented by: Multivitamins (Multivitamin Tab) 1 tab PO [facility] Stop: 10/18/18 08:59 Last Admin: 09/19/18 10:01 Dose: 1 tab Documented by: Ondansetron HCl (Zofran) 4 mg PO QID PRN PRN Reason: Nausea Stop: 10/18/18 05:14 Last Admin: 09/18/18 06:23 Dose: 4 mg Documented by: Oxycodone/Acetaminophen (Percocet 10/325mg) 1 tab PO Q4H PRN PRN Reason: Pain Stop: 10/02/18 05:14 Last Admin: 09/19/18 06:47 Dose: 1 tab Documented by: Pantoprazole Sodium (Protonix) 40 mg PO [facility] Stop: 10/18/18 08:59 Last Admin: 09/19/18 10:01 Dose: 40 mg Documented by: Polyethylene Glycol (Miralax Powder Packet) 17 gm PO DAILY PRN PRN Reason: Constipation Stop: 10/18/18 05:14 Quetiapine Fumarate (Seroquel) 200 mg PO [facility] Stop: 10/18/18 20:59 Last Admin: 09/18/18 20:53 Dose: 200 mg Documented by: Ranitidine HCl (Zantac) 150 mg PO Q12H [facility] Stop: 10/18/18 08:59 Last Admin: 09/19/18 10:02 Dose: 150 mg Documented by: Fluticasone/Salmeterol (Advair Diskus 250/50) 1 puffs INH BID [facility] Stop: 10/18/18 08:59 Last Admin: 09/19/18 08:51 Dose: 1 puffs Documented by: Sertraline HCl (Zoloft) 50 mg PO QAM [facility] Stop: 10/20/18 08:59 Spironolactone (Aldactone) 50 mg PO DAILY@1600 [facility] Stop: 10/18/18 15:59 Last Admin: 09/19/18 16:12 Dose: 50 mg Documented by: Torsemide (Demadex) 20 mg PO Q2D@0900,1700 [facility] Stop: 10/19/18 10:59 Last Admin: 09/19/18 16:12 Dose: 20 mg Documented by: (1) Syncope Syncope type: unspecified Qualified Code(s): R55 - Syncope and collapse (2) Altered mental status Altered mental status type: unspecified Qualified Code(s): R41.82 - Altered mental status, unspecified
[2018-09-19] MEDS ORDERED: BUSPIRONE HCL 10 MG TAB PO SCH (21:00)
[2018-09-19] MEDS: BACLOFEN 10 MG TAB PO SCH (22:13)
[2018-09-19] MEDS: QUETIAPINE FUMARATE 100 MG TABLET PO SCH (22:14)
[2018-09-19] MEDS: ATORVASTATIN 40 MG TAB PO SCH (22:15)
[2018-09-19] MEDS: DOCUSATE SODIUM 100 MG CAP PO SCH (23:35)
[2018-09-20 08:12] LABS: Basophils # (auto) 0.03 K/uL (0-0.2); Basophils % (auto) 0.4 %; Eosinophils # (auto) 0.01 K/uL (0-0.5); Eosinophils % (auto) 0.1 %; Hemoglobin 14.5 g/dL (14.0-18.0); Immature Granulocytes # (auto) 0.07 K/uL (0.00-0.02); Immature Granulocytes % (auto) 0.9 %; Lymphocytes # (auto) 1.25 K/uL (1.2-3.4); Lymphocytes % (auto) 16.7 %; Mean Corpuscular Volume 100.9 fL (80-100); Mean Platelet Volume 10.4 fL (7.4-10.4); Monocytes # (auto) 1.04 K/uL (0.11-0.59); Monocytes % (auto) 13.9 %; Neutrophils # (auto) 5.07 K/uL (1.4-6.5); Platelet Count 222 K/uL (130-400); RDW Coefficient of Variation 17.4 % (11.5-14.5); RDW Standard Deviation 63.9 fL (36.4-46.3); Red Blood Count 4.36 M/uL (4.7-6.1); White Blood Count 7.47 K/uL (4.8-10.8)
[2018-09-20 08:53] LABS: BUN Creatinine Ratio 19.4 (10-20); Calcium 9.4 mg/dl (8.5-10.1); Creatinine Clr Calc Pharmacy 66.1 ml/min; Est GFR (African American) 55.5; Est GFR (Non-African American) 47.9; Potassium 3.5 mmol/L (3.5-5.1)
[2018-09-20] MEDS: IPRATROPIUM BROMIDE/ALBUTEROL respimat INH INH SCH ×3 (09:00→21:47)
[2018-09-20] MEDS ORDERED: SERTRALINE HCL 50 MG TABLET PO SCH (09:00)
[2018-09-20] MEDS: AZELASTINE~ORDER AWAITING ACTION SCH ×3 (09:00→23:02)
[2018-09-20] MEDS: FLUTICASONE/SALMETEROL 250/50 (ADVAIR) 14 PUFF/1 INHALER INH SCH ×2 (09:00→21:46)
[2018-09-20] MEDS: PANTOprazole 40 MG TAB PO SCH (09:01)
[2018-09-20] MEDS: CLOPIDOGREL BISULFATE 75 MG TAB PO SCH (09:01)
[2018-09-20] MEDS: MULTIVITAMIN TAB PO SCH (09:01)
[2018-09-20] MEDS: AMIODARONE 200 MG TAB PO SCH ×2 (09:01→21:49)
[2018-09-20] MEDS: APIXABAN 5 MG TABLET PO SCH ×2 (09:01→21:49)
[2018-09-20] MEDS: BACLOFEN 10 MG TAB PO SCH ×3 (09:01→21:50)
[2018-09-20] MEDS: CARVEDILOL 3.125 MG TAB PO SCH ×2 (09:02→21:49)
[2018-09-20] MEDS: ASPIRIN 81 MG ECTAB PO SCH (09:03)
[2018-09-20] MEDS: CETIRIZINE HCL 10 MG TABLET PO SCH (09:04)
[2018-09-20] MEDS: LORazepam 1 MG/2 ML VIAL IV PRN ×2 (10:03→22:12)
--- NOTE | 2018-09-20 10:38 | CT Scan Report ---
CT SCAN OF THE BRAIN WITHOUT IV CONTRAST CLINICAL HISTORY: Delirium. COMPARISON STUDY: CT of the brain dated 09/18/2018. TECHNIQUE: Unenhanced axial CT scan of the brain is performed from the vertex to the skull base. A do se lowering technique was utilized adhering to the principles of ALARA. The examination is modestly c ompromised by motion artifact. CT DOSE: 1768.17 mGy.cm FINDINGS: Brain parenchyma: There is mild subcortical and periventricular microangiopathic change. There is no hemorrhage, mass effect, or evidence of acute territorial ischemia by CT criteria. Vargas-white matter differentiation is preserved. No extra-axial fluid collection is seen. Ventricles, sulci, cisterns: Normal in configuration. Intracranial vasculature: There is atherosclerotic calcification of the cavernous carotid arteries. Calvarium: Unremarkable. Sinuses and mastoids: The visualized paranasal sinuses are clear. The mastoid air cells are well pneu matized. Orbits: The bony orbits are grossly intact. IMPRESSION: There is no hemorrhage, mass effect, or evidence of acute territorial ischemia by CT yovani worrell. Electronically signed by: Jacky Zhou M.D. 09/20/2018 10:37 AM
[2018-09-20] MEDS: ACETAMINOPHEN 500 MG TAB PO PRN (11:34)
--- NOTE | 2018-09-20 11:49 | Psychiatric Progress Note ---
Date of Service September 20, 2018 Impression / Recommendations Impression 57-year-old male admitted medically from 09/14/18 - 09/17/18, with readmission on day of discharge due to concern for AMS. Differential on initial consultation includes: encephalopathy, delirium, medication reaction, TIA, delayed symptomatology from fall suffered prior to initial admission, other unknown causes, and the possibility of malingering had also been suggested. At this time remains quite delirious in appearance, other than concerns to rule in/out acute anoxic stroke, I'm concerned about potential drug-drug interactions with his psychiatric medications and baclofen. Doubt porsha but given degree of disorganization and restlessness, for this and concern on drug drug interactions (?mild serotonin syndrome), Buspar and Zoloft were tapered for today and will now be d/c'd. Taper Seroquel to 100 mg tonight but doubt that this is akathisia given treatment emergent, whole body, etc. Since Ativan is helpful, less concerned about becoming agitated on lower dose of Seroquel. Treatment for akathisia is generally propranolol but already on BP meds, etc. No fever/severe rigidity so doubt NMS. Interval History Chief Complaint ongoing restlessness Review of Systems Notes patient unable to complete Subjective Subjective Patient was seen & assessed and interval progress reviewed with Nursing. Primary team decreased frequency of prn Ativan order. Not combative but remains very altered. Repeat CT scan scheduled for this am. Physical Exam Mental Examination essentially spastic/restless in bed, mild sedation from Ativan, remains disoriented. Vital Signs (Past 24 Hours) Last Vital Signs Temp 36.9 C 09/20/18 05:58 Pulse 89 09/20/18 05:58 Resp 20 09/20/18 05:58 BP 108/72 09/20/18 05:58 Pulse Ox 95 09/20/18 05:58 Results & Data Laboratory Results Laboratory Results - last 24 hr 09/20/18 09/20/18 07:33 07:33 WBC 7.47 RBC 4.36 L Hgb 14.5 Hct 44.0 MCV 100.9 H MCH 33.3 MCHC 33.0 RDW Std Deviation 63.9 H RDW Coeff of Julian 17.4 H Plt Count 222 MPV 10.4 Immature Gran % (Auto) 0.9 Neut % (Auto) 68.0 Lymph % (Auto) 16.7 [place] % (Auto) 13.9 Eos % (Auto) 0.1 Baso % (Auto) 0.4 Immature Gran # (Auto) 0.07 H Neut # (Auto) 5.07 Lymph # (Auto) 1.25 [place] # (Auto) 1.04 H Eos # (Auto) 0.01 Baso # (Auto) 0.03 Sodium 148 H Potassium 3.5 Chloride 112 H Carbon Dioxide 26 Anion Gap 10.0 BUN 30 H Creatinine 1.56 H Est Cr Clr Drug Dosing 66.1 Est GFR ( Amer) 55.5 Est GFR (Non-Af Amer) 47.9 BUN/Creatinine Ratio 19.4 Glucose 115 H Calcium 9.4 Current Inpatient Medications Current Inpatient Medications: Current Inpatient Medications Acetaminophen (Tylenol) 1,000 mg PO Q8H PRN PRN Reason: Pain Stop: 10/18/18 05:14 Last Admin: 09/20/18 11:34 Dose: 1,000 mg Documented by: Al Hydrox/Mg Hydrox/Simethicone (Maalox) 30 ml PO Q6H PRN PRN Reason: Dyspepsia Stop: 10/18/18 05:14 Albuterol (Ventolin Hfa) 2 puffs INH Q6H PRN PRN Reason: Shortness Of Breath Stop: 10/18/18 05:14 Albuterol (Combivent Respimat) 1 puffs INH TID [facility] Stop: 10/18/18 08:59 Last Admin: 09/20/18 09:00 Dose: 1 puffs Documented by: Amiodarone HCl (Cordarone) 200 mg PO BID [facility] Stop: 10/18/18 08:59 Last Admin: 09/20/18 09:01 Dose: 200 mg Documented by: Apixaban (Eliquis) 5 mg PO BID [facility] Stop: 10/18/18 08:59 Last Admin: 09/20/18 09:01 Dose: 5 mg Documented by: Aspirin (Ecotrin Ectab) 81 mg PO QAM [facility] Stop: 10/18/18 08:59 Last Admin: 09/20/18 09:03 Dose: 81 mg Documented by: Atorvastatin Calcium (Lipitor) 80 mg PO HS [facility] Stop: 10/18/18 20:59 Last Admin: 09/19/18 22:15 Dose: 80 mg Documented by: Baclofen (Lioresal) 10 mg PO TID [facility] Stop: 10/19/18 20:59 Last Admin: 09/20/18 09:01 Dose: 10 mg Documented by: Carvedilol (Coreg) 3.125 mg PO BID [facility] Stop: 10/18/18 08:59 Last Admin: 09/20/18 09:02 Dose: 3.125 mg Documented by: Cetirizine HCl (Zyrtec) 10 mg PO DAILY [facility] Stop: 10/18/18 08:59 Last Admin: 09/20/18 09:04 Dose: 10 mg Documented by: Clopidogrel Bisulfate (Plavix) 75 mg PO QAM [facility] Stop: 10/18/18 08:59 Last Admin: 09/20/18 09:01 Dose: 75 mg Documented by: Diclofenac Sodium (Voltaren 1% Top) 4 appln EXT QID PRN PRN Reason: Pain Stop: 10/18/18 05:14 Docusate Sodium (Colace) 200 mg PO HS [facility] Stop: 10/18/18 20:59 Last Admin: 09/19/18 23:35 Dose: 200 mg Documented by: Lorazepam (Ativan) 1 mg in 2 mls @ 2 mls/min IV Q8H PRN PRN Reason: Anxiety/Agitation Stop: 10/19/18 16:56 Last Admin: 09/20/18 10:03 Dose: 2 mls/min Documented by: Ioversol (Optiray 320 100ml) 100 ml IV ONCE PRN PRN Reason: Interaction Checking Stop: 09/22/18 01:03 Last Admin: 09/18/18 01:04 Dose: 93 ml Documented by: Magnesium Hydroxide (Milk Of Magnesia) 30 ml PO Q6H PRN PRN Reason: Constipation Stop: 10/18/18 05:14 Miscellaneous (Order Awaiting Action) 1 ea N/A QS [facility] Stop: 10/18/18 07:59 Last Admin: 09/20/18 09:00 Dose: Not Given Documented by: Multivitamins (Multivitamin Tab) 1 tab PO QAM [facility] Stop: 10/18/18 08:59 Last Admin: 09/20/18 09:01 Dose: 1 tab Documented by: Ondansetron HCl (Zofran) 4 mg PO QID PRN PRN Reason: Nausea Stop: 10/18/18 05:14 Last Admin: 09/18/18 06:23 Dose: 4 mg Documented by: Oxycodone/Acetaminophen (Percocet 10/325mg) 1 tab PO Q4H PRN PRN Reason: Pain Stop: 10/02/18 05:14 Last Admin: 09/19/18 06:47 Dose: 1 tab Documented by: Pantoprazole Sodium (Protonix) 40 mg PO QAM [facility] Stop: 10/18/18 08:59 Last Admin: 09/20/18 09:01 Dose: 40 mg Documented by: Polyethylene Glycol (Miralax Powder Packet) 17 gm PO DAILY PRN PRN Reason: Constipation Stop: 10/18/18 05:14 Quetiapine Fumarate (Seroquel) 100 mg PO HS [facility] Stop: 10/20/18 20:59 Ranitidine HCl (Zantac) 150 mg PO Q12H [facility] Stop: 10/18/18 08:59 Last Admin: 09/20/18 09:01 Dose: 150 mg Documented by: Fluticasone/Salmeterol (Advair Diskus 250/50) 1 puffs INH BID [facility] Stop: 10/18/18 08:59 Last Admin: 09/20/18 09:00 Dose: 1 puffs Documented by: Spironolactone (Aldactone) 50 mg PO DAILY@1600 [facility] Stop: 10/18/18 15:59 Last Admin: 09/19/18 16:12 Dose: 50 mg Documented by: Torsemide (Demadex) 20 mg PO Q2D@0900,1700 [facility] Stop: 10/19/18 10:59 Last Admin: 09/19/18 16:12 Dose: 20 mg Documented by: Post Discharge Appointments Home Health Services Home Health Agency: [facility] CPT Code CPT Code 74257
--- NOTE | 2018-09-20 15:10 | Hospitalist Progress Note ---
Date of Service September 20, 2018 Assessment & Plan (1) Altered mental status: Altered mental status- The patient presented to the emergency department after just being discharged from [facility] earlier that day. Patient was reportedly found to have number of alcohol bottles in his room, but his alcohol level was normal during the ED assessment. Utox neg His responses in the emergency department to ED personnel, psychiatry personnel and myself all appeared to be evasive, and there were concerns regarding malingering for unknown reasons, and concerns with him being unhappy at his current living arrangements at [facility]. patient continues to have delirium, completely disoriented more abnormal movements with psychomotor agitation today, was flailing arms and legs Ativan has helped appreciate psychiatry evaluation, difficult to determine exact etiology of mental status change at this time could be interaction of Baclofen (just started several days prior) with Buspar and Zoloft Buspar and Zoloft lowered and then d/c on 09/20 per psych agitated catatonia also a possibility, will continue to use Ativan PRN ischemic stroke or anoxic injury would be on differential, cannot get MRI due to pacemaker Repeat CT on 09/20 neg for acute malingering seems less likely at this time given his degree of confusion and abnormal motor movements had discussed palliative care with the patient on 09/18 prior to discharge and he was having a difficult time with the concept, really upset him one thought that his behavior was in response to the discussion, could not cope and was acting out, again, seems less likely (2) Coronary artery disease: CAD/hypertension/CHF/atrial fibrillation/ischemic cardiomyopathy- All medications will be continued as before. (3) Atrial fibrillation: See above (4) CHF (congestive heart failure): patient is euvolemic watch for too much diuresis, patient not eating or drinking great will hold torsemide for time being, check BMP tomorrow monitor for any weight gain or edema and then resume the Torsemide patient has a history of getting too dry and experiencing orthostatic hypotension (5) Hypertension: See above (6) Syncope: recent history of such was attributed to orthostatic hypotension (7) Ischemic cardiomyopathy: very poor EF of 20% patient not a candidate for heart transplant given poor compliance and psychosocial issues involved palliative care prior to discharge on 09/18, he was not too receptive to the idea (8) COPD (chronic obstructive pulmonary disease): Continue usual inhalers. no wheezing on exam (9) PVD (peripheral vascular disease): See above (10) GERD (gastroesophageal reflux disease): Continue ranitidine and pantoprazole. Subjective Ongoing restless and confusion per nursing. States she found his AM meds--pt did not take this AM. She did get him to take them late. He has not had complaints to nursing. Denies pain but will not answer most questions or answers are not appropriate. Did take some applesauce with pills, but not much PO otherwise. Review of Systems Review of Systems: Unable to obtain due to AMS Physical Exam Constitutional: WD/WN, vitals as above Eyes: normal visual warren by confrontation and + anicteric sclerae Neck: normal visual inspection and trachea midline Respiratory: normal respiratory effort, lungs clear to auscultation Cardiovascular: Rate/Rhythm: regular rate and regular rhythm Gastrointestinal (Abdomen): Inspection/Auscultation: abdomen not distended Percussion/Palpation: abdomen soft; abdomen nontender Musculoskeletal: Head/Neck/Chest: normocephalic and head atraumatic negative for edema, peripheral pulses intact Skin: no rashes, warm and dry Neurologic: awake; not confused Speech / Cognition: normal speech Psychiatric: Orientation: oriented to person; + not oriented to place and + not oriented to time Affect: + anxious affect Restless in bed, thrashing around at times Results & Data Vital Signs (Past 12 Hours) Vital Signs Temp Pulse Resp BP Pulse Ox 09/20/18 05:58 36.9 C 89 20 108/72 95 (1) Altered mental status Altered mental status type: unspecified Qualified Code(s): R41.82 - Altered mental status, unspecified (2) Syncope Syncope type: unspecified Qualified Code(s): R55 - Syncope and collapse
[2018-09-20] MEDS: SPIRONOLACTONE 25 MG TAB PO SCH (17:24)
[2018-09-20] MEDS: QUETIAPINE FUMARATE 100 MG TABLET PO SCH (21:50)
[2018-09-20] MEDS: ATORVASTATIN 40 MG TAB PO SCH (21:50)
[2018-09-20] MEDS: DOCUSATE SODIUM 100 MG CAP PO SCH (21:58)
[2018-09-21] MEDS: AZELASTINE~ORDER AWAITING ACTION SCH ×3 (07:13→22:53)
[2018-09-21] MEDS: FLUTICASONE/SALMETEROL 250/50 (ADVAIR) 14 PUFF/1 INHALER INH SCH ×2 (09:14→20:47)
[2018-09-21] MEDS: MULTIVITAMIN TAB PO SCH (09:15)
[2018-09-21] MEDS: CLOPIDOGREL BISULFATE 75 MG TAB PO SCH (09:15)
[2018-09-21] MEDS: BACLOFEN 10 MG TAB PO SCH ×3 (09:15→20:49)
[2018-09-21] MEDS: ASPIRIN 81 MG ECTAB PO SCH (09:15)
[2018-09-21] MEDS: IPRATROPIUM BROMIDE/ALBUTEROL respimat INH INH SCH ×3 (09:15→20:47)
[2018-09-21] MEDS: CARVEDILOL 3.125 MG TAB PO SCH ×2 (09:15→20:48)
[2018-09-21] MEDS: APIXABAN 5 MG TABLET PO SCH ×2 (09:15→20:48)
[2018-09-21] MEDS: CETIRIZINE HCL 10 MG TABLET PO SCH (09:15)
[2018-09-21] MEDS: AMIODARONE 200 MG TAB PO SCH ×2 (09:15→20:49)
[2018-09-21] MEDS: PANTOprazole 40 MG TAB PO SCH (09:15)
--- NOTE | 2018-09-21 13:37 | Hospitalist Progress Note ---
Date of Service September 21, 2018 Assessment & Plan (1) Altered mental status: Altered mental status- The patient presented to the emergency department after just being discharged from [facility] earlier that day. Patient was reportedly found to have number of alcohol bottles in his room, but his alcohol level was normal during the ED assessment. Utox neg His responses in the emergency department to ED personnel, psychiatry personnel and myself all appeared to be evasive, and there were concerns regarding malingering for unknown reasons, and concerns with him being unhappy at his current living arrangements at [facility]. I did ask pt about this and he states he has no issues living there and would be happy to return once he is able. patient is much improved today s/p d/c and taper of psych meds--seems likely the cause of AMS Ativan has helped appreciate psychiatry evaluation, difficult to determine exact etiology of mental status change at this time could be interaction of Baclofen (just started several days prior) with Buspar and Zoloft Buspar and Zoloft lowered and then d/c on 09/20 per psych agitated catatonia also a possibility, will continue to use Ativan PRN ischemic stroke or anoxic injury would be on differential, cannot get MRI due to pacemaker Repeat CT on 09/20 neg for acute malingering seems less likely at this time given his degree of confusion and abnormal motor movements had discussed palliative care with the patient on 09/18 prior to discharge and he was having a difficult time with the concept, really upset him one thought that his behavior was in response to the discussion, could not cope and was acting out, again, seems less likely (2) Coronary artery disease: CAD/hypertension/CHF/atrial fibrillation/ischemic cardiomyopathy- Ongoing spironolactone use Resume turosemide today (3) Atrial fibrillation: See above (4) CHF (congestive heart failure): patient is euvolemic watch for too much diuresis, patient not eating or drinking great will hold torsemide for time being, check BMP tomorrow Was contacted by Peggy Sabillon who follows pt with CHF clinic. She states he has a very narrow window for his diuretics and would rec that pt be back on home dosing if tolerating Will resume Torsemide patient has a history of getting too dry and experiencing orthostatic hypotension (5) Hypertension: See above (6) Syncope: recent history of such was attributed to orthostatic hypotension (7) Ischemic cardiomyopathy: very poor EF of 20% patient not a candidate for heart transplant given poor compliance and psychosocial issues involved palliative care prior to discharge on 09/18, he was not too receptive to the idea (8) COPD (chronic obstructive pulmonary disease): Continue usual inhalers. no wheezing on exam (9) PVD (peripheral vascular disease): See above (10) GERD (gastroesophageal reflux disease): Continue ranitidine and pantoprazole. Subjective Pt is much improved today. Nursing and aides report that he still has moments of being "all over the place" with his conversation, but pt is no longer restless and with flailing extremities. He ate a full breakfast today and there were no issues with taking his meds. He has been cooperative. He did become frustrated when someone tried to tell him it was 2018, insisting that it was 1984 and using the cars in the parking lots as a reference, but has otherwise been much better. Pt denies fever, SOB, chest pain, abd pain, n/v/c/d, LE pain or swelling. Pt recounts to me a conversation he and Dr. Martin had last week. He can recount some of the details of being brought back to [facility] as they were relayed to him, but has no memory of this event or even yesterday. Review of Systems Review of Systems: Pertinent positives and negatives reviewed in HPI--all others negative Physical Exam Constitutional: WD/WN, vitals as above Eyes: normal visual warren by confrontation and + anicteric sclerae Neck: normal visual inspection and trachea midline Respiratory: normal respiratory effort, lungs clear to auscultation Cardiovascular: Rate/Rhythm: regular rate and regular rhythm Gastrointestinal (Abdomen): Inspection/Auscultation: abdomen not distended Percussion/Palpation: abdomen soft; abdomen nontender Musculoskeletal: Head/Neck/Chest: normocephalic and head atraumatic Skin: no rashes, warm and dry Neurologic: awake; not confused Speech / Cognition: normal speech Psychiatric: Orientation: oriented x [address] Speech: normal rate/rhythm/volume of speech Affect: euthymic affect Thought Process: goal directed thought process Pleasant, answers all questions, sitting up in bed and drinking from a straw. Results & Data Vital Signs (Past 12 Hours) Vital Signs Temp Pulse Resp BP Pulse Ox 09/21/18 09:24 36.5 C 111 H 18 118/75 93 (1) Altered mental status Altered mental status type: unspecified Qualified Code(s): R41.82 - Altered mental status, unspecified (2) Syncope Syncope type: unspecified Qualified Code(s): R55 - Syncope and collapse
[2018-09-21] MEDS: ACETAMINOPHEN 500 MG TAB PO PRN (14:27)
[2018-09-21] MEDS: SPIRONOLACTONE 25 MG TAB PO SCH (16:29)
[2018-09-21] MEDS: OXYCODONE/ACETAMINOPHEN 10-325 TAB PO PRN ×2 (16:29→20:53)
[2018-09-21] MEDS: TORSEMIDE 10 MG TAB PO SCH (16:33)
[2018-09-21] MEDS: ATORVASTATIN 40 MG TAB PO SCH (20:49)
[2018-09-21] MEDS: QUETIAPINE FUMARATE 100 MG TABLET PO SCH (20:50)
[2018-09-21] MEDS: DOCUSATE SODIUM 100 MG CAP PO SCH (20:53)
[2018-09-22] MEDS: OXYCODONE/ACETAMINOPHEN 10-325 TAB PO PRN ×6 (00:43→21:01)
[2018-09-22] MEDS: IPRATROPIUM BROMIDE/ALBUTEROL respimat INH INH SCH ×3 (08:09→21:01)
[2018-09-22] MEDS: AZELASTINE~ORDER AWAITING ACTION SCH ×2 (08:09→16:52)
[2018-09-22] MEDS: FLUTICASONE/SALMETEROL 250/50 (ADVAIR) 14 PUFF/1 INHALER INH SCH ×2 (08:09→21:01)
[2018-09-22] MEDS: CLOPIDOGREL BISULFATE 75 MG TAB PO SCH (08:10)
[2018-09-22] MEDS: BACLOFEN 10 MG TAB PO SCH ×3 (08:10→21:04)
[2018-09-22] MEDS: PANTOprazole 40 MG TAB PO SCH (08:10)
[2018-09-22] MEDS: CARVEDILOL 3.125 MG TAB PO SCH ×2 (08:10→21:03)
[2018-09-22] MEDS: MULTIVITAMIN TAB PO SCH (08:10)
[2018-09-22] MEDS: AMIODARONE 200 MG TAB PO SCH ×2 (08:11→21:03)
[2018-09-22] MEDS: CETIRIZINE HCL 10 MG TABLET PO SCH (08:11)
[2018-09-22] MEDS: APIXABAN 5 MG TABLET PO SCH ×2 (08:11→21:04)
[2018-09-22] MEDS: ASPIRIN 81 MG ECTAB PO SCH (08:11)
--- NOTE | 2018-09-22 11:43 | Psychiatric Progress Note ---
Date of Service September 22, 2018 Impression / Recommendations Impression 57-year-old male admitted medically from 09/14/18 - 09/17/18, with readmission on day of discharge due to concern for AMS. Differential includes, but is not limited to: delirium related to medication interaction, Serotonin syndrome, agitated catatonia, TIA, delayed symptomatology from fall suffered prior to initial admission, other unknown causes, and the possibility of malingering had also been suggested. Subjective Subjective Received update from primary attending physician regarding plans for discharge today. We were requested to address the plan for his psychiatric medications. Would suggest continuation of current medication regimen, discharge medications to reflect changes made during this hospitalization. BuSpar and Zoloft were discontinued, and Seroquel was reduced to a dose of 100 mg nightly. It seems most appropriate to continue this regimen until seen by his outpatient prescriber. Patient receives psychiatric medications through his family doctor, and is recommended to follow-up in a timely manner after discharge for ongoing management. In summary, recommending that patient be discharged on 100 mg of Seroquel p.o. qHS as the only continued psychiatric medication. We are available for any additional questions or concerns regarding the ongoing care of this patient. Physical Exam Vital Signs (Past 24 Hours) Last Vital Signs Temp 36.4 C L 09/22/18 06:24 Pulse 80 09/22/18 06:24 Resp 20 09/22/18 06:24 BP 144/94 H 09/22/18 06:24 Pulse Ox 95 09/22/18 06:24 Results & Data Current Inpatient Medications Current Inpatient Medications: Current Inpatient Medications Acetaminophen (Tylenol) 1,000 mg PO Q8H PRN PRN Reason: Pain Stop: 10/18/18 05:14 Last Admin: 09/21/18 14:27 Dose: 1,000 mg Documented by: Al Hydrox/Mg Hydrox/Simethicone (Maalox) 30 ml PO Q6H PRN PRN Reason: Dyspepsia Stop: 10/18/18 05:14 Albuterol (Ventolin Hfa) 2 puffs INH Q6H PRN PRN Reason: Shortness Of Breath Stop: 10/18/18 05:14 Albuterol (Combivent Respimat) 1 puffs INH TID [facility] Stop: 10/18/18 08:59 Last Admin: 09/22/18 08:09 Dose: 1 puffs Documented by: Amiodarone HCl (Cordarone) 200 mg PO BID [facility] Stop: 10/18/18 08:59 Last Admin: 09/22/18 08:11 Dose: 200 mg Documented by: Apixaban (Eliquis) 5 mg PO BID [facility] Stop: 10/18/18 08:59 Last Admin: 09/22/18 08:11 Dose: 5 mg Documented by: Aspir[facility] ([facility]rin [facility]ctab) [facility] Stop: 10/18/18 08:59 Last Admin: 09/22/18 08:11 Dose: 81 mg Documented by: Atorvastatin Calcium (Lipitor) 80 mg PO [facility] Stop: 10/18/18 20:59 Last Admin: 09/21/18 20:49 Dose: 80 mg Documented by: Baclofen (Lioresal) 10 mg PO TID [facility] Stop: 10/19/18 20:59 Last Admin: 09/22/18 08:10 Dose: 10 mg Documented by: Carvedilol (Coreg) 3.125 mg PO BID [facility] Stop: 10/18/18 08:59 Last Admin: 09/22/18 08:10 Dose: 3.125 mg Documented by: Cetirizine HCl (Zyrtec) 10 mg PO DAILY [facility] Stop: 10/18/18 08:59 Last Admin: 09/22/18 08:11 Dose: 10 mg Documented by: Clopidogrel Bisulfate (Plavix) 75 mg PO QAM [facility] Stop: 10/18/18 08:59 Last Admin: 09/22/18 08:10 Dose: 75 mg Documented by: Diclofenac Sodium (Voltaren 1% Top) 4 appln EXT QID PRN PRN Reason: Pain Stop: 10/18/18 05:14 Docusate Sodium (Colace) 200 mg PO [facility] Stop: 10/18/18 20:59 Last Admin: 09/21/18 20:53 Dose: 200 mg Documented by: Lorazepam (Ativan) 1 mg in 2 mls @ 2 mls/min IV Q8H PRN PRN Reason: Anxiety/Agitation Stop: 10/19/18 16:56 Last Admin: 09/20/18 22:12 Dose: 2 mls/min Documented by: Magnesium Hydroxide (Milk Of Magnesia) 30 ml PO Q6H PRN PRN Reason: Constipation Stop: 10/18/18 05:14 Miscellaneous (Order Awaiting Action) 1 ea N/A QS [facility] Stop: 10/18/18 07:59 Last Admin: 09/22/18 08:09 Dose: Not Given Documented by: Multivitamins (Multivitamin Tab) 1 tab PO QAM [facility] Stop: 10/18/18 08:59 Last Admin: 09/22/18 08:10 Dose: 1 tab Documented by: Ondansetron HCl (Zofran) 4 mg PO QID PRN PRN Reason: Nausea Stop: 10/18/18 05:14 Last Admin: 09/18/18 06:23 Dose: 4 mg Documented by: Oxycodone/Acetaminophen (Percocet 10/325mg) 1 tab PO Q4H PRN PRN Reason: Pain Stop: 10/02/18 05:14 Last Admin: 09/22/18 08:35 Dose: 1 tab Documented by: Pantoprazole Sodium (Protonix) 40 mg PO QAM [facility] Stop: 10/18/18 08:59 Last Admin: 09/22/18 08:10 Dose: 40 mg Documented by: Polyethylene Glycol (Miralax Powder Packet) 17 gm PO DAILY PRN PRN Reason: Constipation Stop: 10/18/18 05:14 Last Admin: 09/22/18 09:36 Dose: 17 gm Documented by: Quetiapine Fumarate (Seroquel) 100 mg PO HS [facility] Stop: 10/20/18 20:59 Last Admin: 09/21/18 20:50 Dose: 100 mg Documented by: Ranitidine HCl (Zantac) 150 mg PO Q12H [facility] Stop: 10/18/18 08:59 Last Admin: 09/22/18 08:10 Dose: 150 mg Documented by: Fluticasone/Salmeterol (Advair Diskus 250/50) 1 puffs INH BID [facility] Stop: 10/18/18 08:59 Last Admin: 09/22/18 08:09 Dose: 1 puffs Documented by: Spironolactone (Aldactone) 50 mg PO DAILY@1600 [facility] Stop: 10/18/18 15:59 Last Admin: 09/21/18 16:29 Dose: 50 mg Documented by: Torsemide (Demadex) 20 mg PO Q2D@0900,1700 [facility] Stop: 10/19/18 10:59 Last Admin: 09/21/18 16:33 Dose: 20 mg Documented by: Post Discharge Appointments Home Health Services Home Health Agency: [facility] CPT Code CPT Code 67087
--- NOTE | 2018-09-22 15:59 | Hospitalist Progress Note ---
Date of Service September 22, 2018 Assessment & Plan (1) Altered mental status: Altered mental status- The patient presented to the emergency department after just being discharged from [facility] earlier that day. Patient was reportedly found to have number of alcohol bottles in his room, but his alcohol level was normal during the ED assessment. Utox neg His responses in the emergency department to ED personnel, psychiatry personnel and myself all appeared to be evasive, and there were concerns regarding malingering for unknown reasons, and concerns with him being unhappy at his current living arrangements at [facility]. I did ask pt about this and he states he has no issues living there and would be happy to return once he is able. patient is much improved today s/p d/c and taper of psych meds--seems likely the cause of AMS Ativan has helped appreciate psychiatry evaluation, difficult to determine exact etiology of mental status change at this time could be interaction of Baclofen (just started several days prior) with Buspar and Zoloft Buspar and Zoloft lowered and then d/c on 09/20 per psych agitated catatonia also a possibility, will continue to use Ativan PRN ischemic stroke or anoxic injury would be on differential, cannot get MRI due to pacemaker Repeat CT on 09/20 neg for acute malingering seems less likely at this time given his degree of confusion and abnormal motor movements had discussed palliative care with the patient on 09/18 prior to discharge and he was having a difficult time with the concept, really upset him one thought was that his behavior was in response to the discussion, could not cope and was acting out, again, seems less likely Psych recs for d/c on current medication regimen. His psych meds are managed by his PCP and pt should f/u with her shortly after d/c. Pt has asked me repeatedly what I feel the cause of his AMS was and I have discussed the medication interactions with him several times between yesterday and today. He repeatedly asks about the results of his blood and urine tests as if this is new information to him. (2) Coronary artery disease: CAD/hypertension/CHF/atrial fibrillation/ischemic cardiomyopathy- Ongoing spironolactone use Resume turosemide 09/22 (3) Atrial fibrillation: See above (4) CHF (congestive heart failure): patient is euvolemic Pt with chronic systolic/diastolic CHF that is stable at present watch for too much diuresis, patient not eating or drinking great will hold torsemide for time being, check BMP tomorrow Was contacted by Peggy Sabillon who follows pt with CHF clinic. She states he has a very narrow window for his diuretics and would rec that pt be back on home dosing if tolerating Will resume Torsemide patient has a history of getting too dry and experiencing orthostatic hypotension (5) Hypertension: See above (6) Syncope: recent history of such was attributed to orthostatic hypotension (7) Ischemic cardiomyopathy: very poor EF of 20% patient not a candidate for heart transplant given poor compliance and psychosocial issues Apparently prior service involved palliative care prior to discharge on 09/18 and he was not very receptive to this (8) COPD (chronic obstructive pulmonary disease): Continue usual inhalers. no wheezing on exam (9) PVD (peripheral vascular disease): See above (10) GERD (gastroesophageal reflux disease): Continue ranitidine and pantoprazole. Subjective Pt feels he is doing better but still "not quite there yet". He is having sleep issues which he attributes to having "slept for four days while I was out of it". He does want to go back to [facility], but thinks he is not quite ready for that today. Nursing states that pt is interacting appropriately most of the time, but still with periods of confusion and some memory issues. He is eating and taking his medications. Pt denies fever, SOB, chest pain, abd pain, n/v/c/d, LE pain or swelling. He tells me that the zoloft was not helping him recently. He states that the seroquel has helped with his sleep quite well. Review of Systems Review of Systems: Pertinent positives and negatives reviewed in HPI--all others negative Physical Exam Constitutional: WD/WN, vitals as above Eyes: normal visual warren by confrontation and + anicteric sclerae Neck: normal visual inspection and trachea midline Respiratory: normal respiratory effort, lungs clear to auscultation Cardiovascular: Rate/Rhythm: regular rate and regular rhythm Gastrointestinal (Abdomen): Inspection/Auscultation: abdomen not distended Percussion/Palpation: abdomen soft; abdomen nontender Musculoskeletal: Head/Neck/Chest: normocephalic and head atraumatic Skin: no rashes, warm and dry Neurologic: awake; not confused Speech / Cognition: normal speech Psychiatric: Orientation: oriented x [address] Speech: normal rate/rhythm/volume of speech Affect: euthymic affect Thought Process: goal directed thought process (but asks same questions repeatedly) Results & Data Vital Signs (Past 12 Hours) Vital Signs Temp Pulse Pulse Resp BP Pulse Ox 09/22/18 15:42 36.4 C L 84 20 125/78 95 09/22/18 06:24 36.4 C L 80 20 144/94 H 95 (1) Altered mental status Altered mental status type: unspecified Qualified Code(s): R41.82 - Altered mental status, unspecified (2) Syncope Syncope type: unspecified Qualified Code(s): R55 - Syncope and collapse
[2018-09-22] MEDS: SPIRONOLACTONE 25 MG TAB PO SCH (16:52)
[2018-09-22] MEDS: ATORVASTATIN 40 MG TAB PO SCH (21:04)
[2018-09-22] MEDS: QUETIAPINE FUMARATE 100 MG TABLET PO SCH (21:05)
[2018-09-22] MEDS: DOCUSATE SODIUM 100 MG CAP PO SCH (21:09)
[2018-09-23] MEDS: OXYCODONE/ACETAMINOPHEN 10-325 TAB PO PRN ×4 (00:57→13:45)
[2018-09-23] MEDS: AZELASTINE~ORDER AWAITING ACTION SCH ×2 (00:58→08:47)
[2018-09-23] MEDS: FLUTICASONE/SALMETEROL 250/50 (ADVAIR) 14 PUFF/1 INHALER INH SCH (08:45)
[2018-09-23] MEDS: IPRATROPIUM BROMIDE/ALBUTEROL respimat INH INH SCH ×2 (08:45→13:46)
[2018-09-23] MEDS: CETIRIZINE HCL 10 MG TABLET PO SCH (08:46)
[2018-09-23] MEDS: MULTIVITAMIN TAB PO SCH (08:46)
[2018-09-23] MEDS: BACLOFEN 10 MG TAB PO SCH ×2 (08:46→13:46)
[2018-09-23] MEDS: CLOPIDOGREL BISULFATE 75 MG TAB PO SCH (08:46)
[2018-09-23] MEDS: TORSEMIDE 10 MG TAB PO SCH (08:46)
[2018-09-23] MEDS: PANTOprazole 40 MG TAB PO SCH (08:46)
[2018-09-23] MEDS: APIXABAN 5 MG TABLET PO SCH (08:47)
[2018-09-23] MEDS: AMIODARONE 200 MG TAB PO SCH (08:47)
[2018-09-23] MEDS: ASPIRIN 81 MG ECTAB PO SCH (08:47)
[2018-09-23] MEDS: CARVEDILOL 3.125 MG TAB PO SCH (08:47)
[2018-09-23 11:48] LABS: Calcium 8.8 mg/dl (8.5-10.1); Creatinine Clr Calc Pharmacy 71.7 ml/min; Est GFR (African American) 61.2; Est GFR (Non-African American) 52.8
[2018-09-23 12:20] LABS: Folate (Folic Acid) 20.09 ng/ml (>5.38)
--- NOTE | 2018-09-24 20:27 | Discharge Summary ---
Date of Service date of admission - September 18, 2018 date of discharge - September 23, 2018 Admission HPI Per Admitting Provider Eliseo Morgan is a 57-year-old male admitted medically on 09/17/18 due to altered mental status. Pt had been hospitalized at [facility] from 09/14/18 - 09/17/18 following several syncopal episodes. He was discharged home, and returned to the hospital the same day. It was reported by multiple staff members there that the patient had several bottles of alcohol in his room at "[facility]" where he lives, and that he had to be helped to his bathroom, as he had defecated all over himself and his room. When he arrived in the emergency department, he had to be cleaned down by staff. In the emergency department, he continued to have erratic behaviors with singing [place] carols, tapping on his chest, being evasive when asked to answer questions initially by emergency department staff, and then secondly by psychiatry liaison as well. The concern is that the patient is unhappy with his current living situation at [facility] for unknown reasons, and there is a feeling among ED personnel, psychiatry personnel and myself that the patient may be malingering for unknown reasons. The patient underwent an extensive work-up in the emergency department, including a normal urine drug screen, normal alcohol level, normal CT scans of head, chest, cervical spine, abdomen and pelvis. He also underwent a thorough laboratory evaluation, which were well within his usual range. Principal Diagnosis toxic encephalopathy - resolved Discharge Exam Constitutional well nourished and + well hydrated; no acute distress and no altered mental status ENMT external ear and nose normal, oropharynx normal Respiratory normal respiratory effort, lungs clear to auscultation Cardiovascular Rate/Rhythm: regular rate and regular rhythm Heart Sounds: normal S1 and normal S2; no murmur Vessels: posterior tibial pulses present and dorsalis pedis pulses present; no JVD Gastrointestinal (Abdomen) normal bowel sounds, soft, nontender, no hepatosplenomegaly Neurologic no focal motor deficits Speech / Cognition: normal speech Psychiatric A+Ox3, euthymic affect Discharge Data Allergies Allergy/AdvReac Type Severity Reaction Status Date / Time heparin Allergy Severe SEE COMMENT Verified 09/18/18 04:17 Iodinated Contrast- Oral and Allergy Severe swelling, Verified 09/18/18 04:17 IV Dye hives ibuprofen AdvReac Intermediate nausea Verified 09/18/18 04:17 vomiting Consultations Psychiatry PT Ordered Studies 1. CT chest/abdomen/pelvis - IMPRESSION: 1. No acute traumatic process within the chest, abdomen, or pelvis. 2. Bibasilar lower lobe densities are nonspecific but favor atelectasis/dependent change. 3. Multiple old compression deformities within the lower thoracic and lumbar spine. No acute fractures identified. 4. No change in the distal abdominal aorta, bilateral common iliac, and bilateral internal iliac artery aneurysms. 2. CT head x 2 - both negative for acute process. 3. CT cervical spine - negative for fractures. Moderate DJD. Hospital Course (1) Toxic encephalopathy: The etiology of the patient's altered mental status was not fully certain but suspected to be toxic in origin from medications. He had an extensive metabolic work-up including CT head, CT chest/abdomen/pelvis, labs, etc. These imaging studies were all stable/normal. No infectious etiology was found. Buspar and zoloft were discontinued, and seroquel dose was lowered to 100mg nightly from 200mg previously. Baclofen dose was also lowered from 20mg to 10mg. The patient's mental status ultimately returned to baseline. He was awake, alert, and oriented x 3 on day of discharge with normal affect. Psychiatry was heavily involved in this gentleman's hospitalization. They provided carranza recommendations for his psychotropic medications. (2) CKD (chronic kidney disease), stage II: Creatinine was 1.4 at time of discharge. This is just slightly above baseline. (3) Chronic systolic (congestive) heart failure: Remained compensated while hospitalized. He will continue low-dose coreg, torsemide, spironolactone. He is not a candidate for RALPH/ARB due to low BPs. (4) Coronary artery disease: No ischemic symptoms while hospitalized. He remains on aspirin, plavix, statin, beta sravan, etc. (5) COPD (chronic obstructive pulmonary disease): No exacerbation while hospitalized. Continue advair and combivent. (6) Paroxysmal A-fib: Remained in NSR while here. Continue amiodarone and eliquis. (7) PVD (peripheral vascular disease): No issues. Continue aspirin, plavix, statin. Total Time Total Time Spent Total Time Spent (In Minutes): 40 Total Time Includes: Examination of the Patient, Discharge Planning and Medication Reconciliation Discharge Plan Discharge Items Patient Disposition: Home - Home Health Services Reason For Visit: Altered mental status Discharge Diagnosis: Altered mental status - resolved. Was likely due to medication side effects. Condition: Good Discharge Goals: Diagnostic testing Activity: Resume your previous activity Non-emergency contact: Primary Care Provider and Hat Braider Call non-emergency contact if: you have any medication questions, your symptoms worsen and your temperature is above 100.5 Follow-up/Referrals: Cecy Mott PA-C [Physician Double Needle Operator Lockstitch] - 09/30/18 3:00 pm (Please, follow up at Dr. Marie's office with Cecy Mott PA-C on FridaySeptember 30 at 3:00 pm. IT IS IMPORTANT THAT YOU EITHER KEEP THIS APPOINTMENT OR CALL TO RESCHEDULE. IF NOT, YOU MAY BE AT RISK OF LOSING YOUR PRIMARY CARE PROVIDER If you need to change this appointment, call the office at [phone].) Peggy Spence PA-C [Physician Double Needle Operator Lockstitch] - 09/25/18 10:00 am (Please, follow up at [facility] / [facility] with Cathleen Spence PA-C on FridaySeptember AT 10:00 am. *This office is located in [address] of [facility] - big building next to the hospital. If you need to change or cancel this appointment, call the office at [phone].) Diet: Heart Healthy Fluids: 1800ml (7 cups) Addtl Provider Instructions: You were treated of change in mental status (confusion). This ultimately resolved over time. It was likely due to side effects from your medications. You were seen by psychiatry and they recommended the following -- 1. STOP your buspar (buspirone). 2. STOP your zoloft (sertraline). 3. LOWER your seroquel (quetiapine) dose to 100mg at bedtime. 4. LOWER your baclofen dose to 10mg three times a day. none of your heart medications have changed. Follow-up -- see separate section. Return to [facility] if -- * you have worsening shortness of breath or chest pain * you have severe dizziness / lightheadedness * you have confusion * you have fever over 100.5 degrees * any other concerns Congestive Heart Failure Instructions: Call 911 and go to the Emergency Room if: * You have tightness or pain in your chest that does not go away with rest or Nitroglycerin * You are very short of breath even with rest Call your doctor if any of the following symptoms or problems start or get worse: * Shortness of breath or difficulty breathing * Wake up at night short of breath * Chest pain * Cough * Swelling of your hands, fee, or legs * More fatigued or tired with your normal activity * Palpitations - sudden fast heart beats WEIGHT * Weigh yourself every morning after using the bathroom. * Use the same scale. * Wear the same amount of clothing. * Write your weight down on your chart. * Call your doctor if you gain more than 2-3 pounds in 1-2 days. MEDICATIONS * Use this discharge instruction sheet for instructions. * Take your medications at the time your doctor ordered. * Do not skip a dose of your medicines. * If you miss a dose of medicine, take as soon as possible, but DO NOT DOUBLE A DOSE. * Read your medicine information when you get home. * Know all of the side effects of your medicine. * Call your doctor's office if you have any side effects. * Be sure all of your doctors know what medicine and herbs you take (including cold, flu, and herbal medicine). * Pain Medicine: If you do not get relief from your pain, please call your doctor for help. Take the following with you to your follow-up doctor appointments: * Weight Chart * Medication List * List of questions Do not drink excessive alcohol, beer or wine. Prescriptions: Continued atorvastatin 80 mg tablet 80 mg PO HS RF: 0 aspirin 81 mg Tablet,Delayed Release (Dr/Ec) 81 mg PO QAM RF: 0 azelastine 137 mcg (0.1 %) aerosol,spray 1 spray Intranasal BID PRN (Reason: ALLERGIES) RF: 0 multivitamin [Daily Multiple] Tablet 1 tab PO QAM RF: 0 polyethylene glycol 3350 [Miralax] 17 gram Powder In Packet 17 g PO DAILY PRN (Reason: Constipation) RF: 0 clopidogrel 75 mg tablet 75 mg PO QAM RF: 0 oxycodone-acetaminophen 10-325 mg tablet 1 tab PO Q4H PRN (Reason: Pain) RF: 0 pantoprazole 40 mg tablet,delayed release (DR/EC) 40 mg PO QAM RF: 0 ranitidine HCl 150 mg tablet 150 mg PO Q12H RF: 0 loratadine [Claritin] 10 mg Tablet 10 mg PO QAM RF: 0 melatonin 10 mg Tablet 10 mg PO HS RF: 0 spironolactone 25 mg tablet 50 mg PO 1600 RF: 0 albuterol sulfate [Ventolin HFA] 90 mcg/actuation Hfa Aerosol Inhaler 2 puff INHALATION Q6H PRN (Reason: Shortness Of Breath) RF: 0 diclofenac sodium [Voltaren] 1 % gel 4 gm TOP QID PRN (Reason: Pain) RF: 0 amiodarone 200 mg Tablet 200 mg PO BID Qty: 60 RF: 0 acetaminophen [Tylenol Extra Strength] 500 mg Tablet 1,000 mg PO Q6H PRN (Reason: Pain) RF: 0 flaxseed oil-omega 3,6,9 1,300 mg-845 mg -117 mg-117 mg Capsule 1 cap PO 1200 RF: 0 fluticasone propion-salmeterol [Advair Diskus] 250-50 mcg/dose blister with device 1 puff Inhalation BID RF: 0 ondansetron HCl [Zofran] 4 mg Tablet 4 mg PO QID PRN (Reason: Nausea) RF: 0 docusate sodium [Colace] 100 mg Capsule 200 mg PO HS RF: 0 ginkgo biloba 120 mg Tablet 120 mg PO DAILY RF: 0 coenzyme Q10 [Co Q-10] 200 mg Capsule 200 mg PO DAILY RF: 0 Calcium Magnesium 500 mg calcium -250 mg Tablet PO DAILY RF: 0 Combivent Respimat 20-100 mcg/actuation Mist 1 puff INHALATION TID RF: 0 saw palmetto 160 mg Capsule PO BID RF: 0 Zyrtec 10 mg Capsule 10 mg PO DAILY RF: 0 Probiotic 3 billion cell Capsule PO DAILY RF: 0 torsemide 20 mg tablet 20 mg PO BID RF: 0 carvedilol [Coreg] 3.125 mg tablet 3.125 mg PO BID RF: 0 Eliquis 5 mg Tablet 5 mg PO BID Qty: 60 RF: 0 Changed quetiapine 100 mg tablet 100 mg PO HS Qty: 30 RF: 5 baclofen 20 mg Tablet 10 mg PO TID 30 Days Qty: 90 RF: 1 Discontinued buspirone 15 mg tablet 15 mg PO TID RF: 0 sertraline 100 mg tablet 150 mg PO QAM RF: 0 Stand-Alone Forms: [facility]charge Orders: Discharge Order (Routine); Ordered 09/23/18 Ordered By: Juan A Estevez Admission Data Admit Date/Time: 09/18/18 04:34 Attending Provider: Juan A Estevez Admit Provider: Bryan Mathew Primary Care Provider: Hilda Marie Other Providers: Carlos Walton Service: Medical Other Interventions: Discharge Summary Assessment (RN) Last Done: 09/23/18 15:49 Pending Studies at Discharge: No DC Date/Time DO NOT enter until pt leaves facility: 09/23/18 16:25
== END 2018-09-23 16:25 | disposition home health service (06) | DRG 92 ==
LOC: ED 21:49 → SUATTDRO 09-18 04:34 → 4W 09-18 04:34
DX: I50.42 Chronic combined systolic (congestive) and diastolic (congestive) heart failure; Z79.02 Long term (current) use of antithrombotics/antiplatelets; G92 Toxic encephalopathy; Z79.899 Other long term (current) drug therapy; I73.9 Peripheral vascular disease, unspecified; E78.5 Hyperlipidemia, unspecified; I48.0 Paroxysmal atrial fibrillation; G89.29 Other chronic pain; F32.9 Major depressive disorder, single episode, unspecified; F41.9 Anxiety disorder, unspecified; Z88.6 Allergy status to analgesic agent; Z95.810 Presence of automatic (implantable) cardiac defibrillator; I13.0 Hypertensive heart and chronic kidney disease with heart failure and stage 1 through stage 4 chronic kidney disease, or unspecified chronic kidney disease; I25.2 Old myocardial infarction; Z79.82 Long term (current) use of aspirin; M54.5 Low back pain; N18.2 Chronic kidney disease, stage 2 (mild); I25.5 Ischemic cardiomyopathy; Z86.73 Personal history of transient ischemic attack (TIA), and cerebral infarction without residual deficits; T43.595A Adverse effect of other antipsychotics and neuroleptics, initial encounter; Z88.8 Allergy status to other drugs, medicaments and biological substances; K21.9 Gastro-esophageal reflux disease without esophagitis; J44.9 Chronic obstructive pulmonary disease, unspecified; Z91.041 Radiographic dye allergy status; I25.10 Atherosclerotic heart disease of native coronary artery without angina pectoris; T43.225A Adverse effect of selective serotonin reuptake inhibitors, initial encounter; T42.8X5A Adverse effect of antiparkinsonism drugs and other central muscle-tone depressants, initial encounter; Z79.01 Long term (current) use of anticoagulants

== ENCOUNTER 2018-11-11 15:02 | Inpatient (IN) ==
[2018-11-11] MEDS ORDERED: LEVALBUTEROL HCL 1.25 MG/3 ML NEB NEB STA (16:08)
[2018-11-11] MEDS ORDERED: ONDANSETRON INJ 2 MG/ML 2 ML VIAL IV STA (16:08)
[2018-11-11] MEDS ORDERED: SODIUM CHLORIDE 0.9% 500 ML IV SCH (16:15)
[2018-11-11] MEDS ORDERED: LIDOCAINE 5% 1 PATCH TD STA (16:16)
[2018-11-11] MEDS: HYDROmorphone INJ 1 MG/ML SYRINGE IV PRN ×6 (16:46→21:23)
[2018-11-11 16:56] LABS: Basophils # (auto) 0.04 K/uL (0-0.2); Basophils % (auto) 0.8 %; Eosinophils # (auto) 0.16 K/uL (0-0.5); Eosinophils % (auto) 3.3 %; Hematocrit (blood only) 37.5 % (42-52); Hemoglobin 12.2 g/dL (14.0-18.0); Immature Granulocytes # (auto) 0.03 K/uL (0.00-0.02); Immature Granulocytes % (auto) 0.6 %; Lymphocytes # (auto) 1.26 K/uL (1.2-3.4); Mean Corpuscular Hgb Conc 32.5 g/dL (32-36); Mean Corpuscular Volume 98.2 fL (80-100); Mean Platelet Volume 10.2 fL (7.4-10.4); Monocytes % (auto) 12.4 %; Neutrophils # (auto) 2.75 K/uL (1.4-6.5); Neutrophils % (auto) 56.9 %; Platelet Count 194 K/uL (130-400); RDW Coefficient of Variation 16.7 % (11.5-14.5); RDW Standard Deviation 59.8 fL (36.4-46.3); Red Blood Count 3.82 M/uL (4.7-6.1); White Blood Count 4.84 K/uL (4.8-10.8)
[2018-11-11 17:14] LABS: Alanine Aminotransferase 13 U/L (12-78); Albumin Level 3.5 gm/dl (3.4-5.0); Aspartate Aminotransferase 18 U/L (15-37); BUN Creatinine Ratio 14.4 (10-20); Blood Urea Nitrogen 19 mg/dl (7-18); Calcium 8.7 mg/dl (8.5-10.1); Carbon Dioxide 31 mmol/L (21-32); Chloride 101 mmol/L (98-107); Creatinine Clr Calc Pharmacy 76.3 ml/min; Est GFR (African American) 66.7; Est GFR (Non-African American) 57.6; Glucose 86 mg/dl (70-99); Sodium 138 mmol/L (136-145)
[2018-11-11 17:19] LABS: Albumin Globulin Ratio 0.9 (0.9-2); Alkaline Phosphatase 70 U/L (45-117); Bilirubin,Total 0.4 mg/dl (0.2-1); Creatine Kinase 61 U/L (39-308); Creatine Kinase MB < 1.0 ng/ml (0.5-3.6); Globulin 4.1 gm/dl (2.5-4.0); Total Protein 7.6 gm/dl (6.4-8.2); Troponin I < 0.015 ng/ml (0-0.045)
--- NOTE | 2018-11-11 17:44 | CT Scan Report ---
CT chest wo con CLINICAL HISTORY: 57 years-old Male presenting with Pt c/o left sided back pain. TECHNIQUE: Multidetector CT imaging of the chest was performed without the use of intravenous contras t. IV contrast: None. One or more dose lowering techniques were used consistent with the principles o f ALARA (as low as reasonably achievable), including automatic exposure control, mA or kV adjustment to individual patient size, and/or use of iterative reconstruction. COMPARISON: 09/18/2018. CT DOSE (mGy.cm): The estimated cumulative dose is 1832.56. FINDINGS: Briquetting Machine Operator topogram: Left subclavian implanted cardiac defibrillator. There may be an additional abandoned ICD lead. Elevation of the left hemidiaphragm. Soft tissues: Normal thyroid and thoracic inlet. Gynecomastia. No axillary, supraclavicular, or media stinal lymphadenopathy. Evaluation of the michelle limited without intravenous contrast. Atherosclerosis of the aorta. Multichamber enlargement of the heart. Coronary artery and aortic valve calcification. ICD leads to the right atrial appendage and right ventricular apex. No pericardial or pleural effusio n. Elevation of the left hemidiaphragm. Lungs and airways: No pneumothorax. Layering debris in the lower trachea and proximal mainstem bronch i. Mild bronchial wall thickening with a lower lobe predominance with subsegmental endobronchial debr is. Pulmonary arteries are not significantly enlarged relative to adjacent bronchi. Extensive bandlik e opacities in the lower lobes with volume loss. Dependent consolidation and reticular opacities have increased from prior. The degree of left lower lobe volume loss is similar to the prior exam. Trace upper lobe centrilobular emphysema may be present. Musculoskeletal: Degenerative changes of the spine. Compression deformities noted at T4, T5, T8, T10- T12 as on prior exam. Moderate compression fracture at T8 is new from prior. Multiple old rib fractur es suggested. IMPRESSION: 1. Airway debris with bronchial wall thickening and increasing lower lobe consolidation and a depend ent distribution most characteristic of acute on chronic aspiration. 2. Suspected trace emphysema. 3. Cardiomegaly. 4. Multilevel compression deformities, many which are stable from prior, although the moderate compr ession fracture at T8 is new. Correlate for point tenderness. Electronically signed by: Lasha Nickerson M.D. 11/11/2018 5:43 PM
--- NOTE | 2018-11-11 18:07 | CT Scan Report ---
CT thoracic spine wo con CLINICAL HISTORY: 57 years-old Male presenting with Pt c/o thoracic back pain, fall injury with pain in the rib cage on the left side as well as mid back pain. TECHNIQUE: Multidetector CT of the thoracic spine was performed without the use of intravenous contra st. IV contrast: None. One or more dose lowering techniques were used consistent with the principles of ALARA (as low as reasonably achievable), including automatic exposure control, mA or kV adjustment to individual patient size, and/or use of iterative reconstruction. COMPARISON: Plain radiograph from 09/14/[address] from 09/18/2018. CT DOSE (mGy.cm): The estimated cumulative dose is 1832.56 mGy.cm. FINDINGS: Appliance Sales Associate topogram: Left subclavian ICD with an additional ICD addendum needs suspected. Elevation of the left hemidiaphragm. Mildly exaggerated thoracic kyphosis. Underlying osteopenia suspected. Moderate compression deformity of T8, which is new from prior exam. Mild compression deformity T4, mild to moderate compression def ormity at T5, mild to moderate compression deformity at T10 and mild deformities at T11 and T12 as on prior exam. No significant intervertebral disc height loss. No retropulsion of the posterior cortice s of the vertebral bodies at the fractured levels. No osseous neural foraminal narrowing. Limited fransico luation of the spinal canal on soft tissue windows does not demonstrate effacement allowing for the s ensitivity of CT. Degenerative changes in the cervical spine noted. Visualized portion of the ribs in tact. Extensive dependent consolidation in the lungs. There were noted in the trachea and distal airw ays. IMPRESSION: 1. Moderate compression fracture at T8 is new since the prior CT in September and is acute or subacute. Co rrelate with point tenderness. 2. Multilevel compression fractures unchanged from prior exam. 3. Extensive dependent consolidation in the lungs with associated airway debris, suggestive of aspir ation/aspiration pneumonitis. Electronically signed by: Lasha Nickerson M.D. 11/11/2018 6:06 PM
[2018-11-11] MEDS ORDERED: PIPERACILL/TAZOBAC CONSULT ACTIVE PRN ×2 (18:44→21:50)
[2018-11-11] MEDS ORDERED: VANCOMYCIN CONSULT ACTIVE PRN ×2 (18:44→21:50)
[2018-11-11] MEDS ORDERED: LEVOFLOXACIN/D5W 750 MG/150 ML BAG IV STA (18:44)
[2018-11-11] MEDS ORDERED: PIPERACILLIN/TAZOBACTAM 4.5 GM/120 ML BAG IV ONE (18:44)
[2018-11-11] MEDS ORDERED: VANCOMYCIN HCL 2,000 MG in SODIUM CHLORIDE 0.9% 500 ML IV ONE (18:44)
[2018-11-11] MEDS ORDERED: SODIUM CHLORIDE 0.9% 1000ML 1,000 ML IV ONE (18:44)
[2018-11-11] MEDS ORDERED: MAGNESIUM SULFATE / D5W 1 GM/100 ML BAG IV ONE (18:46)
[2018-11-11] MEDS ORDERED: methylPREDNISolone 60 MG in SYRINGE 1 ML IV STA (18:46)
[2018-11-11] MEDS ORDERED: methylPREDNISolone 125 MG/2 ML VIAL ONE (19:15)
--- NOTE | 2018-11-11 21:42 | History & Physical Report ---
Date of Service November 11, 2018 Assessment & Plan (1) Aspiration pneumonia of both lower lobes: Aspiration pneumonia both lower lobes/COPD- Imaging studies suggest with debris found in both lower lobe breathing tubes. Patient on vancomycin IV and Zosyn IV. Duonebs every 4 hours while awake and every 2 hours when necessary.. Solu-Medrol 40 mg IV every 8 hours. Nasal cannula oxygen, titrate to keep pulse ox around 94 to 95%. We will continue essential medications for now, otherwise will be n.p.o. Consult speech therapy. Present on Admission?: Yes (2) Chronic viral hepatitis C: Normal LFTs. Present on Admission?: Yes (3) Coronary artery disease: CAD/hypertension/CHF/AICD/paroxysmal atrial fibrillation/ischemic cardi omyopathy- Continue usual medications: Amiodarone, aspirin, carvedilol, clopidogrel, Eliquis, spironolactone and torsemide. Present on Admission?: Yes (4) ICD (implantable cardioverter-defibrillator), single, in situ: See above Present on Admission?: Yes (5) Chronic systolic (congestive) heart failure: See above Present on Admission?: Yes (6) Hypertension: See above Present on Admission?: Yes (7) Paroxysmal A-fib: See above Present on Admission?: Yes (8) Ischemic cardiomyopathy: See above Present on Admission?: Yes (9) COPD (chronic obstructive pulmonary disease): Meds as above. Present on Admission?: Yes (10) CKD (chronic kidney disease), stage II: Creatinine close to baseline at 1.34. Keep following with serial laboratories Present on Admission?: Yes (11) GERD (gastroesophageal reflux disease): Continue ranitidine and pantoprazole Present on Admission?: Yes (12) Depression: Depression/anxiety- , Lorazepam and buspirone. Tinea Lexapro Present on Admission?: Yes History of Present Illness Chief Complaint: The patient presents to the emergency department with worsening shortness of breath over the past few days, with an intermittent nonproductive cough Primary Care Provider: Hilda Marie MD The patient is a 57-year-old male with a past medical history including CAD, hypertension, CHF, atrial fibrillation, ischemic cardiomyopathy, COPD, peripheral arterial disease and GERD, with last [facility] admission from 09/18-09/24/2018 for altered mental status, who presents with mid thoracic back pain and worsening shortness of breath over the past couple days with intermittent nonproductive cough. Patient had imaging studies performed while in the ED including CT of chest, which noted debris in the airways bilaterally suggesting possible aspiration pneumonia. Upon questioning, patient reports that he has had intermittent problems with coughing and clearing his throat while eating over the past several months. He has had no recent travels or sick exposures, other than recent hospital stay as noted. He was also found to have a new T8 compression fracture, in addition to a number of older thoracic compression fractures, which has most likely occurred due to issues with coughing and reports he was lifting some heavy objects at his residence. Allergies Allergy/AdvReac Type Severity Reaction Status Date / Time heparin Allergy Severe SEE COMMENT Verified 10/23/18 13:18 Iodinated Contrast- Oral and Allergy Severe swelling, Verified 10/23/18 13:18 IV Dye hives ibuprofen AdvReac Intermediate nausea Verified 10/23/18 13:18 vomiting Home Medications Home Medications Medication Instructions Recorded Confirmed Type aspirin 81 mg PO QAM 03/02/18 11/11/18 History atorvastatin 80 mg PO HS 03/02/18 11/11/18 History azelastine 1 spray INTRANASAL BID PRN 03/02/18 11/11/18 History albuterol sulfate [Ventolin HFA] 2 puff INHALATION Q6H PRN 03/03/18 11/11/18 History clopidogrel 75 mg PO QAM 03/03/18 11/11/18 History melatonin 10 mg PO 03/03/18 11/11/18 History multivitamin [Daily Multiple] 1 tab PO QAM 03/03/18 11/11/18 History pantoprazole 40 mg PO QAM 03/03/18 11/11/18 History polyethylene glycol 3350 [Miralax] 17 g PO DAILY PRN 03/03/18 11/11/18 History ranitidine HCl 150 mg PO Q12H 03/03/18 11/11/18 History spironolactone 50 mg PO 1600 03/03/18 11/11/18 History diclofenac sodium [Voltaren] 4 gm TOP QID PRN 03/30/18 11/11/18 History amiodarone 200 mg PO BID #60 tab 04/30/18 11/11/18 Rx flaxseed oil-omega 3,6,9 1 cap PO 1200 05/22/18 11/11/18 History fluticasone propion-salmeterol 1 puff INHALATION BID 06/22/18 11/11/18 History [Advair Diskus] Calcium Magnesium 0 mg PO DAILY 09/01/18 11/11/18 History Combivent Respimat 1 puff INHALATION TID 09/01/18 11/11/18 History Probiotic 0 mmu cells PO DAILY 09/01/18 11/11/18 History coenzyme Q10 [Co Q-10] 200 mg PO DAILY 09/01/18 11/11/18 History docusate sodium [Colace] 200 mg PO HS 09/01/18 11/11/18 History ginkgo biloba 120 mg PO DAILY 09/01/18 11/11/18 History ondansetron HCl [Zofran] 4 mg PO QID PRN 09/01/18 11/11/18 History saw palmetto 0 mg PO BID 09/01/18 11/11/18 History Eliquis 5 mg PO BID #60 tab 09/04/18 11/11/18 Rx buspirone 15 mg tablet 15 mg PO TID #90 tab 10/23/18 11/11/18 Rx carvedilol 6.25 mg tablet 6.25 mg PO BID #60 tab 10/23/18 11/11/18 Rx escitalopram 10 mg tablet 10 mg PO DAILY #30 tab 10/23/18 11/11/18 Rx oxycodone-acetaminophen 10 mg-325 1 - 2 tab PO Q4H PRN #210 tab MDD 10/23/18 11/11/18 Rx mg tablet Max 7 tabs daily. torsemide 20 mg tablet 60 mg PO DAILY #90 tab 10/23/18 11/11/18 Rx cetirizine 10 mg capsule 10 mg PO DAILY #30 cap 11/02/18 11/11/18 Rx lorazepam 1 mg tablet 1 mg PO QPM PRN 30 Days #60 tab 11/06/18 11/11/18 Rx Past Med/Surg History Medical History CVA (cerebral vascular accident) (Resolved) no residual effects Chronic viral hepatitis C (Chronic) ICD (implantable cardioverter-defibrillator), single, in situ (Chronic) Insomnia (Chronic) CKD (chronic kidney disease), stage II (Chronic) Chronic systolic (congestive) heart failure (Chronic) Chronic low back pain (Chronic) Depression (Chronic) Environmental allergies (Chronic) Ventricular fibrillation (Resolved) Hypertension (Chronic) Coronary artery disease (Chronic) GERD (gastroesophageal reflux disease) (Chronic) Anxiety (Chronic) NSTEMI (non-ST elevated myocardial infarction) (Resolved) Obesity hypoventilation syndrome (Chronic) Rotator cuff tear (Chronic) Anemia of chronic disease (Chronic) History of venous thromboembolism (Chronic) History of orthostatic hypotension (Chronic) PVD (peripheral vascular disease) (Chronic) Paroxysmal A-fib (Chronic) COPD (chronic obstructive pulmonary disease) (Chronic) Ischemic cardiomyopathy (Chronic) Surgical History Status post popliteal-distal bypass surgery (Chronic) H/O rotator cuff surgery right S/P insertion of iliac artery stent Social History Preferred Language: Montserratian Communication Ability: Effective Scoreboard Operator Required: No Beliefs That Will Affect Care: None marital status: Current Living Situation: Boarding Home Current Living Situation Comment: [facility] current occupational status: disabled Other Information That Helps Us Care for You: No Feels Safe at Home: Yes Safety Concerns: Feels Safe At This Time Smoking Status: Former smoker Do You Dip or Chew Tobacco: No Smoking End Date: 2014 Second Hand Exposure: No Hx Alcohol Use: No (quit in 2016) Hx Substance Use: No Review of Systems Review of Systems: The patient denies chest pain, palpitations, lower extremity swelling, sore throat, fevers, chills, sweats, weight change, fatigue, nausea, vomiting, diarrhea , constipation, ab dominal pain, pelvic pain, blood in urine or stool, dysuria, urinary frequency or urgency, lightheadedness, dizziness, headache, memory loss, loss of consciousness, rash, abnormal bruising or bleeding, imbalance, focal or generalized weakness, numbness or tingling in arms or legs, generalized arthralgias or myalgias, neck pain, or night sweats. The review of systems is otherwise negative other than for that already noted above, and at least 10 systems have been reviewed. Physical Exam Physical Exam: The patient is awake, alert and oriented 3, well developed and well nourished, normocephalic and atraumatic, lying in bed and in no acute distress. HEENT--PERRL, EOMI, mucous membranes and oropharynx normal. Neck--supple. No JVD. No bruits. Thyroid normal, trachea midline, no adenopathy. Heart--normal S1 and S2. No murmurs, rubs or gallops. Lungs--few crackles at the bases bilaterally. No respiratory distress, no accessory muscle use. Abdomen--normal bowel sounds and soft. Nontender. Nondistended, no hernias or masses, no organomegaly. Extremities--no cyanosis or clubbing. No edema. There are good distal pulses b/l. Dermatologic--normal skin turgor, normal color, no abnormal lymph nodes, no rash. Neurologic--cranial nerves II through XII grossly intact. Rheumatologic--normal range of motion. Psychiatric--normal affect. Results & Data Vital Signs (Past 12 Hours) Vital Signs Temp Pulse Pulse Resp BP BP Pulse Ox 11/11/18 21:23 69 16 113/83 98 11/11/18 21:16 66 19 125/89 93 11/11/18 21:00 66 19 125/89 93 11/11/18 20:30 70 20 99/73 L 95 11/11/18 20:00 69 15 108/75 94 11/11/18 19:30 71 12 124/82 93 11/11/18 19:13 89 18 102/89 91 11/11/18 18:55 83 L 11/11/18 17:59 69 20 106/78 93 11/11/18 15:11 98.6 F 73 18 98/57 L 92 Laboratory Results Laboratory Results WBC 4.84 K/uL (4.8-10.8) 11/11/18 16:31 RBC 3.82 M/uL (4.7-6.1) L 11/11/18 16:31 Hgb 12.2 g/dL (14.0-18.0) L 11/11/18 16:31 Hct 37.5 % (42-52) L 11/11/18 16:31 MCV 98.2 fL (80-100) 11/11/18 16:31 MCH 31.9 pg (25-34) 11/11/18 16:31 MCHC 32.5 g/dL (32-36) 11/11/18 16:31 RDW Std Deviation 59.8 fL (36.4-46.3) H 11/11/18 16:31 RDW Coeff of Julian 16.7 % (11.5-14.5) H 11/11/18 16:31 Plt Count 194 K/uL (130-400) 11/11/18 16:31 MPV 10.2 fL (7.4-10.4) 11/11/18 16:31 Immature Gran % (Auto) 0.6 % 11/11/18 16:31 Neut % (Auto) 56.9 % 11/11/18 16:31 Lymph % (Auto) 26.0 % 11/11/18 16:31 Nash % (Auto) 12.4 % 11/11/18 16:31 Eos % (Auto) 3.3 % 11/11/18 16:31 Baso % (Auto) 0.8 % 11/11/18 16:31 Immature Gran # (Auto) 0.03 K/uL (0.00-0.02) H 11/11/18 16:31 Neut # (Auto) 2.75 K/uL (1.4-6.5) 11/11/18 16:31 Lymph # (Auto) 1.26 K/uL (1.2-3.4) 11/11/18 16:31 Nash # (Auto) 0.60 K/uL (0.11-0.59) H 11/11/18 16:31 Eos # (Auto) 0.16 K/uL (0-0.5) 11/11/18 16:31 Baso # (Auto) 0.04 K/uL (0-0.2) 11/11/18 16:31 Sodium 138 mmol/L (136-145) 11/11/18 16:31 Potassium 4.0 mmol/L (3.5-5.1) 11/11/18 16:31 Chloride 101 mmol/L (98-107) 11/11/18 16:31 Carbon Dioxide 31 mmol/L (21-32) 11/11/18 16:31 Anion Gap 7.0 (3-11) 11/11/18 16:31 BUN 19 mg/dl (7-18) H 11/11/18 16:31 Creatinine 1.34 mg/dl (0.6-1.4) 11/11/18 16:31 Est Cr Clr Drug Dosing 76.3 ml/min 11/11/18 16:31 Est GFR ( Amer) 66.7 11/11/18 16:31 Est GFR (Non-Af Amer) 57.6 11/11/18 16:31 BUN/Creatinine Ratio 14.4 (10-20) 11/11/18 16:31 Glucose 86 mg/dl (70-99) 11/11/18 16:31 Calcium 8.7 mg/dl (8.5-10.1) 11/11/18 16:31 Total Bilirubin 0.4 mg/dl (0.2-1) 11/11/18 16:31 AST 18 U/L (15-37) 11/11/18 16:31 ALT 13 U/L (12-78) 11/11/18 16:31 Alkaline Phosphatase 70 U/L (45-117) 11/11/18 16:31 Total Creatine Kinase 61 U/L (39-308) 11/11/18 16:31 CK-MB (CK-2) < 1.0 ng/ml (0.5-3.6) 11/11/18 16:31 CK/CKMB % Calc TNP 11/11/18 16:31 Troponin I < 0.015 ng/ml (0-0.045) 11/11/18 22:19 Total Protein 7.6 gm/dl (6.4-8.2) 11/11/18 16:31 Albumin 3.5 gm/dl (3.4-5.0) 11/11/18 16:31 Globulin 4.1 gm/dl (2.5-4.0) H 11/11/18 16:31 Albumin/Globulin Ratio 0.9 (0.9-2) 11/11/18 16:31 Lipase 76 U/L (73-393) 11/11/18 16:31 Hepatitis C Ab Screen Pos (Neg) A 11/11/18 16:31 Diagnostic Findings [facility], [place] [phone] CT Scan Report Patient: APRIL RIVERA IAdmit Date: 11/11/18 MR#: [id number]: [address] [facility] Acct ID:[id number]: Date: 1960[facility] Zip: [place] [id number] Age: 57Location: ED Sex: M Room/Bed: Att Phy: Diagnosis: L SHOULDER & BACK PAIN Yamilet Phy: Hilda Marie, MDService Date: 11/11/18 [facility] Phy: Interpreting Phy: Lasha Nickerson MD Admit Phy: Ordering Phy: Imtiaz Carreno MD cc: ~ CT chest wo con CLINICAL HISTORY: 57 years-old Male presenting with Pt c/o left sided back pain. TECHNIQUE: Multidetector CT imaging of the chest was performed without the use of intravenous contrast. IV contrast: None. One or more dose lowering techniques were used consistent with the principles of ALARA (as low as reasonably achievable), including automatic exposure control, mA or kV adjustment to in dividual patient size, and/or use of iterative reconstruction. COMPARISON: 09/18/2018. CT DOSE (mGy.cm): The estimated cumulative dose is 1832.56. FINDINGS: Sports Equipment Racker topogram: Left subclavian implanted cardiac defibrillator. There may be an additional abandoned ICD lead. Elevation of the left hemidiaphragm. Soft tissues: Normal thyroid and thoracic inlet. Gynecomastia. No axillary, supraclavicular, or mediastinal lymphadenopathy. Evaluation of the michelle limited without intravenous contrast. Atherosclerosis of the aorta. Multichamber enlargement of the heart. Coronary artery and aortic valve calcification. ICD leads to the right atrial appendage and right ventricular apex. No pericardial or pleural effusion. Elevation of the left hemidiaphragm. Lungs and airways: No pneumothorax. Layering debris in the lower trachea and proximal mainstem bronchi. Mild bronchial wall thickening with a lower lobe predominance with subsegmental endobronchial debris. Pulmonary arteries are not significantly enlarged relative to adjacent bronchi. Extensive bandlike opacities in the lower lobes with volume loss. Dependent consolidation and reticular opacities have increased from prior. The degree of left lower lobe volume loss is similar to the prior exam. Trace upper lobe centrilobular emphysema may be present. Musculoskeletal: Degenerative changes of the spine. Compression deformities noted at T4, T5, T8, T10-T12 as on prior exam. Moderate compression fracture at T8 is new from prior. Multiple old rib fractures suggested. IMPRESSION: 1. Airway debris with bronchial wall thickening and increasing lower lobe consolidation and a dependent distribution most characteristic of acute on chronic aspiration. 2. Suspected trace emphysema. 3. Cardiomegaly. 4. Multilevel compression deformities, many which are stable from prior, although the moderate compression fracture at T8 is new. Correlate for point tenderness. Electronically signed by: Lasha Nickerson M.D. 11/11/2018 5:43 PM Dictated: 11/11/181736 Transcribed: 11/11/181736 [place], [place] [phone] CT Scan Report Patient: APRIL RIVERA IAdmit Date: 11/11/18 MR#: [id number]: [address] Acct ID:[id number]: Date: 1960[facility] Zip: [place] [id number] Age: 57Location: ED Sex: M Room/Bed: Att Phy: Diagnosis: L SHOULDER & BACK PAIN Yamilet Phy: Hilda Marie, MDService Date: 11/11/18 Fam Phy: Interpreting Phy: Lasha Nickerson MD Admit Phy: Ordering Phy: Imtiaz Carreno MD cc: ~ CT thoracic spine wo con CLINICAL HISTORY: 57 years-old Male presenting with Pt c/o thoracic back pain, fall injury with pain in the rib cage on the left side as well as mid back pain. TECHNIQUE: Multidetector CT of the thoracic spine was performed without the use of intravenous contrast. IV contrast: None. One or more dose lowering techniques were used consistent with the principles of ALARA (as low as reasonably achievable), including automatic exposure control, mA or kV adjustment to individual patient size, and/or use of iterative reconstruction. COMPARISON: Plain radiograph from 09/14/[address] from 09/18/2018. CT DOSE (mGy.cm): The estimated cumulative dose is 1832.56 mGy.cm. FINDINGS: Sports Equipment Racker topogram: Left subclavian ICD with an additional ICD addendum needs suspected. Elevation of the left hemidiaphragm. Mildly exaggerated thoracic kyphosis. Underlying osteopenia suspected. Moderate compression deformity of T8, which is new from prior exam. Mild compression deformity T4, mild to moderate compression deformity at T5, mild to moderate compression deformity at T10 and mild deformities at T11 and T12 as on prior exam. No significant intervertebral disc height loss. No retropulsion of the posterior cortices of the vertebral bodies at the fractured levels. No osseous neural foraminal narrowing. Limited evaluation of the spinal canal on soft tissue windows does not demonstrate effacement allowing for the sensitivity of CT. Degenerative changes in the cervical spine noted. Visualized portion of the ribs intact. Extensive dependent consolidation in the lungs. There were noted in the trachea and distal airways. IMPRESSION: 1. Moderate compression fracture at T8 is new since the prior CT in September and is acute or subacute. Correlate with point tenderness. 2. Multilevel compression fractures unchanged from prior exam. 3. Extensive dependent consolidation in the lungs with associated airway debris, suggestive of aspiration/aspiration pneumonitis. Electronically signed by: Lasha Nickerson M.D. 11/11/2018 6:06 PM Dictated: 11/11/181801 Transcribed: 11/11/18 180 Code Status & VTE Plan Code Status Full code VTE Prophylaxis Plan VTE Prophylaxis will be ordered: Yes PG Care Time/CCT Total # of Minutes Spent Total Time Spent with Patient: Total time spent is greater than 50% in coordination of care (as documented) at patient's floor/unit and/or counseling patient:
[2018-11-11] MEDS ORDERED: VANCOMYCIN HCL 1,000 MG/270 ML BAG IV STA (21:50)
[2018-11-11] MEDS ORDERED: ALBUTEROL HFA 8 GM INHALER INH PRN (21:50)
[2018-11-11] MEDS ORDERED: LORazepam 1 MG TAB PO PRN (21:50)
[2018-11-11] MEDS ORDERED: ACETAMINOPHEN 1000 MG/100 ML IV IV PRN (21:50)
[2018-11-11] MEDS ORDERED: PIPERACILLIN/TAZOBACTAM 4.5 GM in DEXTROSE 5% 100 ML IV SCH (21:50)
[2018-11-11] MEDS ORDERED: ONDANSETRON INJ 2 MG/ML 2 ML VIAL IV PRN (21:50)
[2018-11-11] MEDS: OXYCODONE/ACETAMINOPHEN 10-325 TAB PO PRN (22:00)
[2018-11-11] MEDS: IPRATROPIUM BROMIDE/ALBUTEROL respimat INH INH SCH (22:11)
[2018-11-11] MEDS: CARVEDILOL 6.25 MG TAB PO SCH (22:13)
[2018-11-11] MEDS: ATORVASTATIN 40 MG TAB PO SCH (22:14)
[2018-11-11] MEDS: BusPIRone 15 MG TAB PO SCH (22:14)
[2018-11-11] MEDS: AMIODARONE 200 MG TAB PO SCH (22:14)
[2018-11-11] MEDS: DOCUSATE SODIUM 100 MG CAP PO SCH (22:14)
[2018-11-11] MEDS: APIXABAN 5 MG TABLET PO SCH (22:14)
[2018-11-11] MEDS: LORazepam 1 MG TAB PO PRN (22:24)
[2018-11-11] MEDS: PIPERACILLIN/TAZOBACTAM 3.375 GM in DEXTROSE 5% 100 ML IV SCH (23:25)
[2018-11-11] MEDS: AZELASTINE~ORDER AWAITING ACTION SCH (23:48)
--- NOTE | 2018-11-12 00:48 | Emergency Department Note ---
Entered by Zander Meyers acting as a scribe for Imtiaz Carreno MD History of Present Illness General Chief complaint: Shoulder Pain Stated complaint: L SHOULDER & BACK PAIN Time Seen by Provider: 11/11/18 15:57 Source: patient History of Present Illness Onset (ago): day(s) 4 Location: back (left-sided) Pain Consistency: + other (worsening) Maximum Pain Intensity: 8 Relieved By: + none Associated symptoms: + chest pain, + cough, + shortness of breath and + other (dyspnea) The patient is a 57 year old M who presents to the Emergency Room with complaints of worsening left-sided back pain that started 4 days ago. He states that he twisted his back when the pain started. He notes that he saw his PCP for his pain 2 day ago. He adds that his PCP referred him to the ED. He states that due to the pain, he cannot walk. He notes that he takes Percocet for him pain. He states that he is currently experiencing dyspnea, chest pain, shortness of breath, and coughing. Home Medications Home Medications Medication Instructions Recorded Confirmed Type aspirin 81 mg PO QAM 03/02/18 11/11/18 History atorvastatin 80 mg PO HS 03/02/18 11/11/18 History azelastine 1 spray INTRANASAL BID PRN 03/02/18 11/11/18 History albuterol sulfate [Ventolin HFA] 2 puff INHALATION Q6H PRN 03/03/18 11/11/18 History clopidogrel 75 mg PO QAM 03/03/18 11/11/18 History melatonin 10 mg PO HS 03/03/18 11/11/18 History multivitamin [Daily Multiple] 1 tab PO QAM 03/03/18 11/11/18 History pantoprazole 40 mg PO QAM 03/03/18 11/11/18 History polyethylene glycol 3350 [Miralax] 17 g PO DAILY PRN 03/03/18 11/11/18 History ranitidine HCl 150 mg PO Q12H 03/03/18 11/11/18 History spironolactone 50 mg PO 1600 03/03/18 11/11/18 History diclofenac sodium [Voltaren] 4 gm TOP QID PRN 03/30/18 11/11/18 History amiodarone 200 mg PO BID #60 tab 04/30/18 11/11/18 Rx flaxseed oil-omega 3,6,9 1 cap PO 1200 05/22/18 11/11/18 History fluticasone propion-salmeterol 1 puff INHALATION BID 06/22/18 11/11/18 History [Advair Diskus] Calcium Magnesium 0 mg PO DAILY 09/01/18 11/11/18 History Combivent Respimat 1 puff INHALATION TID 09/01/18 11/11/18 History Probiotic 0 mmu cells PO DAILY 09/01/18 11/11/18 History coenzyme Q10 [Co Q-10] 200 mg PO DAILY 09/01/18 11/11/18 History docusate sodium [Colace] 200 mg PO HS 09/01/18 11/11/18 History ginkgo biloba 120 mg PO DAILY 09/01/18 11/11/18 History ondansetron HCl [Zofran] 4 mg PO QID PRN 09/01/18 11/11/18 History saw palmetto 0 mg PO BID 09/01/18 11/11/18 History Eliquis 5 mg PO BID #60 tab 09/04/18 11/11/18 Rx buspirone 15 mg tablet 15 mg PO TID #90 tab 10/23/18 11/11/18 Rx carvedilol 6.25 mg tablet 6.25 mg PO BID #60 tab 10/23/18 11/11/18 Rx escitalopram 10 mg tablet 10 mg PO DAILY #30 tab 10/23/18 11/11/18 Rx oxycodone-acetaminophen 10 mg-325 1 - 2 tab PO Q4H PRN #210 tab MDD 10/23/18 11/11/18 Rx mg tablet Max 7 tabs daily. torsemide 20 mg tablet 60 mg PO DAILY #90 tab 10/23/18 11/11/18 Rx cetirizine 10 mg capsule 10 mg PO DAILY #30 cap 11/02/18 11/11/18 Rx lorazepam 1 mg tablet 1 mg PO QPM PRN 30 Days #60 tab 11/06/18 11/11/18 Rx Allergies Allergy/AdvReac Type Severity Reaction Status Date / Time heparin Allergy Severe SEE COMMENT Verified 10/23/18 13:18 Iodinated Contrast- Oral and Allergy Severe swelling, Verified 10/23/18 13:18 IV Dye hives ibuprofen AdvReac Intermediate nausea Verified 10/23/18 13:18 vomiting Past Med/Surg History Medical History CVA (cerebral vascular accident) (Resolved) no residual effects Chronic viral hepatitis C (Chronic) ICD (implantable cardioverter-defibrillator), single, in situ (Chronic) Insomnia (Chronic) CKD (chronic kidney disease), stage II (Chronic) Chronic systolic (congestive) heart failure (Chronic) Chronic low back pain (Chronic) Depression (Chronic) Environmental allergies (Chronic) Ventricular fibrillation (Resolved) Hypertension (Chronic) Coronary artery disease (Chronic) GERD (gastroesophageal reflux disease) (Chronic) Anxiety (Chronic) NSTEMI (non-ST elevated myocardial infarction) (Resolved) Obesity hypoventilation syndrome (Chronic) Rotator cuff tear (Chronic) Anemia of chronic disease (Chronic) History of venous thromboembolism (Chronic) History of orthostatic hypotension (Chronic) PVD (peripheral vascular disease) (Chronic) Paroxysmal A-fib (Chronic) COPD (chronic obstructive pulmonary disease) (Chronic) Ischemic cardiomyopathy (Chronic) Surgical History Status post popliteal-distal bypass surgery (Chronic) H/O rotator cuff surgery right S/P insertion of iliac artery stent Social History Preferred Language: Lithuanian Communication Ability: Effective 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 and A total of 10 systems reviewed and were otherwise negative Physical Exam Vital Signs Vital Signs - 24 hr 11/11/18 15:11 11/11/18 17:59 11/11/18 18:55 Temperature 37.0 C Temperature Source Oral Sepsis Recent Fever Within 48 Hours No Sepsis New/Unexplained Change in Mental Status No Sepsis Action Taken by Nursing No Action Required Pulse Rate 73 Pulse Rate [Apical] 69 Pulse Rate from SpO2 Sensor Respiratory Rate 18 20 Respiratory Effort / Characteristics Non-Labored Respiratory Depth Normal Respiratory Pattern Regular Blood Pressure 98/57 L Blood Pressure [Right Arm] 106/78 Blood Pressure Mean 70 Blood Pressure Mean [Right Arm] 87 Pulse Oximetry 92 93 83 L Oxygen Delivery Method Room Air Nasal Cannula Room Air Oxygen Flow Rate 2 11/11/18 19:13 11/11/18 19:30 11/11/18 20:00 Temperature Temperature Source Sepsis Recent Fever Within 48 Hours Sepsis New/Unexplained Change in Mental Status Sepsis Action Taken by Nursing Pulse Rate 89 71 69 Pulse Rate [Apical] Pulse Rate from SpO2 Sensor 91 H 69 71 Respiratory Rate 18 12 15 Respiratory Effort / Characteristics Respiratory Depth Respiratory Pattern Blood Pressure 102/89 124/82 108/75 Blood Pressure [Right Arm] Blood Pressure Mean 93 96 86 Blood Pressure Mean [Right Arm] Pulse Oximetry 91 93 94 Oxygen Delivery Method Room Air Room Air Room Air Oxygen Flow Rate GENERAL: Awake, alert, well-appearing, in no acute distress HENT: Normocephalic, atraumatic. Oropharynx unremarkable. EYES: Normal conjunctiva. Sclera non-icteric. NECK: Supple. No nuchal rigidity. FROM. No JVD. RESPIRATORY: Clear to auscultation. CARDIAC: Regular rate, normal rhythm. Extremities warm and well perfused. Pulses equal. ABDOMEN: Soft, non-distended. No tenderness to palpation. No rebound or guarding. No masses. RECTAL: Deferred. MUSCULOSKELETAL: Chest examination reveals no tenderness. Tenderness to the left thoracic back area between T3 and T8. There is no CVA tenderness to palpation. No joint edema. LOWER EXTREMITIES: Calves are equal size bilaterally and non-tender. No edema. No discoloration. NEURO: Normal sensorium. No sensory or motor deficits noted. SKIN: No rash or jaundice noted. Course 160: The patient was evaluated in room B5. A complete history and physical exam was performed. 1919: I reviewed the patient's case with Dr. Bryan Mathew, [facility] Hospitalist. He will evaluate the patient for further management. Consultations Consultation #1: I reviewed the patient's case with Dr. Bryan Mathew, [facility] Hospitalist. He will evaluate the patient for further management. Time: 19:20 Administered Medications Acetaminophen (Tylenol) 1,000 mg PO TID [facility] Stop: 12/12/18 13:59 Last Admin: 11/12/18 20:20 Dose: Not Given Documented by: [id number] Admin: 11/12/18 14:19 Dose: 1,000 mg Documented by: [id number] Albuterol (Duoneb) 3 ml NEB QIDR [facility] Stop: 12/12/18 07:59 Last Admin: 11/12/18 19:34 Dose: Not Given Documented by: [id number] Admin: 11/12/18 15:27 Dose: Not Given Documented by: [id number] Admin: 11/12/18 11:04 Dose: 3 ml Documented by: [id number] Admin: 11/12/18 07:01 Dose: 3 ml Documented by: [id number] Albuterol (Combivent Respimat) 1 puffs INH TID [facility]KE Stop: 12/11/18 21:49 Last Admin: 11/12/18 20:20 Dose: 1 puffs Documented by: [id number] Admin: 11/12/18 14:18 Dose: 1 puffs Documented by: [id number] Admin: 11/12/18 08:02 Dose: 1 puffs Documented by: [id number] Admin: 11/11/18 22:11 Dose: 1 puffs Documented by: [id number] Amiodarone HCl (Cordarone) 200 mg PO BID [facility] Stop: 12/11/18 21:49 Last Admin: 11/12/18 20:21 Dose: 200 mg Documented by: [id number] Admin: 11/12/18 08:03 Dose: 200 mg Documented by: [id number] Admin: 11/11/18 22:14 Dose: 200 mg Documented by: [id number] Apixaban (Eliquis) 5 mg PO BID [facility] Stop: 12/11/18 21:49 Last Admin: 11/12/18 20:23 Dose: 5 mg Documented by: [id number] Admin: 11/12/18 08:04 Dose: 5 mg Documented by: [id number] Admin: 11/11/18 22:14 Dose: 5 mg Documented by: [id number] Aspirin (Ecotrin Ectab) 81 mg PO QAM [facility] Stop: 12/12/18 08:59 Last Admin: 11/12/18 08:04 Dose: 81 mg Documented by: [id number] Atorvastatin Calcium (Lipitor) 80 mg PO HS [facility] Stop: 12/11/18 21:49 Last Admin: 11/12/18 20:19 Dose: 80 mg Documented by: [id number] Admin: 11/11/18 22:14 Dose: 80 mg Documented by: [id number] Buspirone HCl (Buspar) 15 mg PO TID [facility] Stop: 12/11/18 21:49 Last Admin: 11/12/18 20:21 Dose: 15 mg Documented by: [id number] Admin: 11/12/18 14:18 Dose: 15 mg Documented by: [id number] Admin: 11/12/18 08:02 Dose: 15 mg Documented by: [id number] Admin: 11/11/18 22:14 Dose: 15 mg Documented by: [id number] Calcitonin [place] (Fortical) 1 sprays NA DAILY [facility] Stop: 12/12/18 12:59 Last Admin: 11/12/18 12:53 Dose: 1 sprays Documented by: [id number] Carvedilol (Coreg) 6.25 mg PO BID [facility] Stop: 12/11/18 21:49 Last Admin: 11/12/18 20:23 Dose: Not Given Documented by: [id number] Admin: 11/12/18 08:04 Dose: 6.25 mg Documented by: [id number] Admin: 11/11/18 22:13 Dose: 6.25 mg Documented by: [id number] Cetirizine HCl (Zyrtec) 10 mg PO DAILY [facility] Stop: 12/12/18 08:59 Last Admin: 11/12/18 08:06 Dose: 10 mg Documented by: [id number] Clopidogrel Bisulfate (Plavix) 75 mg PO QAM [facility] Stop: 12/12/18 08:59 Last Admin: 11/12/18 08:03 Dose: 75 mg Documented by: [id number] Docusate Sodium (Colace) 200 mg PO HS [facility] Stop: 12/11/18 21:49 Last Admin: 11/12/18 20:19 Dose: 200 mg Documented by: [id number] Admin: 11/11/18 22:14 Dose: 200 mg Documented by: [id number] Escitalopram Oxalate (Lexapro) 10 mg PO DAILY [facility] Stop: 12/12/18 08:59 Last Admin: 11/12/18 08:02 Dose: 10 mg Documented by: [id number] Hydromorphone HCl (Dilaudid) 0.5 mg IV Q5H PRN PRN Reason: Pain Stop: 11/26/18 12:28 Last Admin: 11/13/18 02:10 Dose: 0.5 mg Documented by: [id number] Admin: 11/12/18 21:20 Dose: 0.5 mg Documented by: [id number] Admin: 11/12/18 16:02 Dose: 0.5 mg Documented by: [id number] Piperacillin Sod/Tazobactam (Sod 3.375 gm/ Dextrose) 115 mls @ 28.75 mls/hr IV Q8H [facility]; Protocol Stop: 11/19/18 00:00 Last Admin: 11/12/18 23:59 Dose: 28 mls/hr Documented by: [id number] Infusion: 11/12/18 20:30 Dose: 0 mls/hr Documented by: [id number] Admin: 11/12/18 16:02 Dose: 28 mls/hr Documented by: [id number] Infusion: 11/12/18 12:14 Dose: 0 mls/hr Documented by: [id number] Admin: 11/12/18 08:07 Dose: 28 mls/hr Documented by: [id number] Infusion: 11/12/18 03:50 Dose: 0 mls/hr Documented by: [id number] Admin: 11/11/18 23:25 Dose: 28.8 mls/hr Documented by: [id number] Vancomycin HCl 1,250 mg/ (Sodium Chloride) 275 mls @ 125 mls/hr IV Q12H [facility] Stop: 11/19/18 05:59 Last Infusion: 11/12/18 20:30 Dose: 0 mls/hr Documented by: [id number] Admin: 11/12/18 18:04 Dose: 125 mls/hr Documented by: [id number] Infusion: 11/12/18 08:04 Dose: 0 mls/hr Documented by: [id number] Admin: 11/12/18 05:52 Dose: 125 mls/hr Documented by: [id number] Lidocaine (Lidoderm 5%) 1 patch TD DAILY@0900 [facility] Stop: 12/12/18 08:59 Last Admin: 11/12/18 08:05 Dose: 1 patch Documented by: [id number] Lorazepam (Ativan) 1 - 2 mg PO QPM PRN PRN Reason: sleep Stop: 12/11/18 21:49 Last Admin: 11/12/18 21:19 Dose: 2 mg Documented by: [id number] Admin: 11/11/18 22:24 Dose: 2 mg Documented by: [id number] Miscellaneous (Remove Lidoderm Patch) 1 ea N/A DAILY@2100 [facility] Stop: 12/11/18 20:59 Last Admin: 11/12/18 22:13 Dose: 1 ea Documented by: [id number] Admin: 11/11/18 22:16 Dose: 1 ea Documented by: [id number] Miscellaneous (Order Awaiting Action) 1 ea N/A QS [facility] Stop: 12/12/18 00:00 Last Admin: 11/13/18 00:00 Dose: Not Given Documented by: [id number] Admin: 11/12/18 15:52 Dose: Not Given Documented by: [id number] Admin: 11/12/18 08:08 Dose: Not Given Documented by: [id number] Admin: 11/11/18 23:48 Dose: Not Given Documented by: [id number] Oxycodone HCl (Roxicodone Immediate Rel) 10 mg PO Q6H PRN PRN Reason: Pain Stop: 11/26/18 12:26 Last Admin: 11/13/18 03:36 Dose: 10 mg Documented by: [id number] Admin: 11/12/18 20:19 Dose: 10 mg Documented by: [id number] Admin: 11/12/18 14:23 Dose: 10 mg Documented by: [id number] Polyethylene Glycol (Miralax Powder Packet) 17 gm PO DAILY PRN PRN Reason: Constipation Stop: 12/11/18 21:49 Last Admin: 11/12/18 10:26 Dose: 17 gm Documented by: [id number] Ranitidine HCl (Zantac) 150 mg PO Q12 [facility] Stop: 12/11/18 21:49 Last Admin: 11/12/18 20:19 Dose: 150 mg Documented by: [id number] Admin: 11/12/18 08:05 Dose: 150 mg Documented by: [id number] Admin: 11/11/18 22:14 Dose: 150 mg Documented by: [id number] Discontinued Medications Acetaminophen (Ofirmev) 1,000 mg IV Q8H PRN PRN Reason: Pain or Fever Stop: 12/11/18 21:49 Last Admin: 11/12/18 10:25 Dose: 1,000 mg Documented by: [id number] Hydromorphone HCl (Dilaudid) 1 mg IV Q15M PRN PRN Reason: Pain Stop: 11/25/18 16:07 Last Admin: 11/11/18 21:23 Dose: 1 mg Documented by: [id number] Admin: 11/11/18 19:30 Dose: 1 mg Documented by: [id number] Admin: 11/11/18 18:48 Dose: 1 mg Documented by: [id number] Admin: 11/11/18 17:58 Dose: 1 mg Documented by: [id number] Admin: 11/11/18 17:16 Dose: 1 mg Documented by: [id number] Admin: 11/11/18 16:46 Dose: 1 mg Documented by: [id number] Hydromorphone HCl (Dilaudid) 0.5 mg IV NOW STA Stop: 11/12/18 12:28 Last Admin: 11/12/18 12:47 Dose: 0.5 mg Documented by: [id number] Sodium Chloride (Nss) 500 mls @ 999 mls/hr IV .Q31M [facility] Stop: 11/11/18 16:45 Last Infusion: 11/11/18 17:19 Dose: 0 mls/hr Documented by: [id number] Admin: 11/11/18 16:47 Dose: 999 mls/hr Documented by: [id number] Piperacillin Sod/Tazobactam Sod (Zosyn) 4.5 gm in 120 mls @ 240 mls/hr IV NOW ONE Stop: 11/11/18 19:13 Last Infusion: 11/11/18 20:04 Dose: 0 mls/hr Documented by: [id number] Admin: 11/11/18 19:28 Dose: 240 mls/hr Documented by: [id number] Levofloxacin/Dextrose (Levaquin/D5w) 750 mg in 150 mls @ 100 mls/hr IV NOW STA Stop: 11/11/18 20:13 Last Infusion: 11/11/18 20:59 Dose: 0 mls/hr Documented by: [id number] Admin: 11/11/18 19:28 Dose: 100 mls/hr Documented by: [id number] Sodium Chloride (Nss 1000ml) 1,000 mls @ 999 mls/hr IV .Q1H1M ONE Stop: 11/11/18 19:44 Last Infusion: 11/11/18 20:32 Dose: 0 mls/hr Documented by: [id number] Admin: 11/11/18 19:28 Dose: 999 mls/hr Documented by: [id number] Vancomycin HCl 2,000 mg/ (Sodium Chloride) 540 mls @ 200 mls/hr IV NOW ONE; Protocol Stop: 11/11/18 21:25 Last Infusion: 11/11/18 23:28 Dose: 0 mls/hr Documented by: [id number] Admin: 11/11/18 19:28 Dose: 200 mls/hr Documented by: [id number] Methylprednisolone 60 mg/ (Syringe) 1.96 mls @ 1.5 mls/min IV NOW STA Stop: 11/11/18 18:47 Last Admin: 11/11/18 19:29 Dose: Not Given Documented by: [id number] Magnesium Sulfate/Dextrose (Magnesium Sulfate / D5w) 1 gm in 100 mls @ 100 mls/hr IV ONE ONE Stop: 11/11/18 19:45 Last Infusion: 11/11/18 20:32 Dose: 0 mls/hr Documented by: [id number] Admin: 11/11/18 19:28 Dose: 100 mls/hr Documented by: [id number] Methylprednisolone 40 mg/ (Syringe) 0.64 mls @ 1.5 mls/min IV Q8H [facility] Stop: 12/12/18 03:59 Last Admin: 11/12/18 11:57 Dose: 1.5 mls/min Documented by: [id number] Admin: 11/12/18 03:16 Dose: 1.5 mls/min Documented by: [id number] Levalbuterol HCl (Xopenex 1.25mg/3ml Neb) 1.25 mg NEB NOW STA Stop: 11/11/18 16:09 Last Admin: 11/11/18 16:46 Dose: 1.25 mg Documented by: [id number] Lidocaine (Lidoderm 5%) 1 patch TD NOW STA Stop: 11/11/18 16:17 Last Admin: 11/11/18 16:47 Dose: 1 patch Documented by: [id number] Methylprednisolone (Solumedrol) Confirm Administered Dose 125 mg .ROUTE .STK-MED ONE Stop: 11/11/18 19:16 Last Admin: 11/11/18 19:28 Dose: 60 mg Documented by: [id number] Ondansetron HCl (Zofran) 4 mg IV NOW STA Stop: 11/11/18 16:09 Last Admin: 11/11/18 16:46 Dose: 4 mg Documented by: [id number] Oxycodone/Acetaminophen (Percocet 10/325mg) 1 tab PO Q4H PRN PRN Reason: Moderate Pain Stop: 11/25/18 21:49 Last Admin: 11/12/18 11:57 Dose: 1 tab Documented by: [id number] Admin: 11/12/18 07:59 Dose: 1 tab Documented by: [id number] Admin: 11/12/18 03:16 Dose: 1 tab Documented by: [id number] Admin: 11/11/18 22:00 Dose: 1 tab Documented by: [id number] Medical Decision Making Differential Diagnosis Differential diagnosis includes: musculoskeletal, disc herniation, fracture, aortic disease, metastatic disease, cord compression, discitis, infection, renal colic, gastrointestinal, acute exacerbation of chronic back pain, sciatica, cauda equina, as well as others were entertained. Medical Records Attestation: I reviewed the patient's medical records. Home Medications Current Medication List: was personally reviewed by me Laboratory Data Attestation: I reviewed the patient's lab results. Result diagrams: 11/12/18 07:18 11/12/18 07:18 Lab Results 11/11/18 11/11/18 11/11/18 Range/Units 16:31 16:31 16:31 WBC 4.84 (4.8-10.8) K/uL RBC 3.82 L (4.7-6.1) M/uL Hgb 12.2 L (14.0-18.0) g/dL Hct 37.5 L (42-52) % MCV 98.2 (80-100) fL MCH 31.9 (25-34) pg MCHC 32.5 (32-36) g/dL RDW Std Deviation 59.8 H (36.4-46.3) fL RDW Coeff of Julian 16.7 H (11.5-14.5) % Plt Count 194 (130-400) K/uL MPV 10.2 (7.4-10.4) fL Immature Gran % (Auto) 0.6 % Neut % (Auto) 56.9 % Lymph % (Auto) 26.0 % [place] % (Auto) 12.4 % Eos % (Auto) 3.3 % Baso % (Auto) 0.8 % Immature Gran # (Auto) 0.03 H (0.00-0.02) K/uL Neut # (Auto) 2.75 (1.4-6.5) K/uL Lymph # (Auto) 1.26 (1.2-3.4) K/uL [place] # (Auto) 0.60 H (0.11-0.59) K/uL Eos # (Auto) 0.16 (0-0.5) K/uL Baso # (Auto) 0.04 (0-0.2) K/uL Sodium 138 (136-145) mmol/L Potassium 4.0 (3.5-5.1) mmol/L Chloride 101 (98-107) mmol/L Carbon Dioxide 31 (21-32) mmol/L Anion Gap 7.0 (3-11) BUN 19 H (7-18) mg/dl Creatinine 1.34 (0.6-1.4) mg/dl Est Cr Clr Drug Dosing 76.3 ml/min Est GFR ( Amer) 66.7 Est GFR (Non-Af Amer) 57.6 BUN/Creatinine Ratio 14.4 (10-20) Glucose 86 (70-99) mg/dl Calcium 8.7 (8.5-10.1) mg/dl Total Bilirubin 0.4 (0.2-1) mg/dl AST 18 (15-37) U/L ALT 13 (12-78) U/L Alkaline Phosphatase 70 (45-117) U/L Total Creatine Kinase 61 (39-308) U/L CK-MB (CK-2) < 1.0 (0.5-3.6) ng/ml CK/CKMB % Calc TNP Troponin I < 0.015 (0-0.045) ng/ml Total Protein 7.6 (6.4-8.2) gm/dl Albumin 3.5 (3.4-5.0) gm/dl Globulin 4.1 H (2.5-4.0) gm/dl Albumin/Globulin Ratio 0.9 (0.9-2) Lipase 76 (73-393) U/L Hepatitis C Ab Screen Pos A (Neg) Imaging Data Radiologist's Impression: Radiology results as stated below per my review and the radiologist's interpretation: CT chest wo con CLINICAL HISTORY: 57 years-old Male presenting with Pt c/o left sided back pain. TECHNIQUE: Multidetector CT imaging of the chest was performed without the use of intravenous contrast. IV contrast: None. One or more dose lowering techniques were used consistent with the principles of ALARA (as low as reasonably achievable), including automatic exposure control, mA or kV adjustment to individual patient size, and/or use of iterative reconstruction. COMPARISON: 09/18/2018. CT DOSE (mGy.cm): The estimated cumulative dose is 1832.56. FINDINGS: [employer] topogram: Left subclavian implanted cardiac defibrillator. There may be an additional abandoned ICD lead. Elevation of the left hemidiaphragm. Soft tissues: Normal thyroid and thoracic inlet. Gynecomastia. No axillary, sup raclavicular, or mediastinal lymphadenopathy. Evaluation of the michelle limited without intravenous contrast. Atherosclerosis of the aorta. Multichamber enlargement of the heart. Coronary artery and aortic valve calcification. ICD leads to the right atrial appendage and right ventricular apex. No pericardial or pleural effusion. Elevation of the left hemidiaphragm. Lungs and airways: No pneumothorax. Layering debris in the lower trachea and proximal mainstem bronchi. Mild bronchial wall thickening with a lower lobe predominance with subsegmental endobronchial debris. Pulmonary arteries are not significantly enlarged relative to adjacent bronchi. Extensive bandlike opacities in the lower lobes with volume loss. Dependent consolidation and reticular opacities have increased from prior. The degree of left lower lobe volume loss is similar to the prior exam. Trace upper lobe centrilobular emph ysema may be present. Musculoskeletal: Degenerative changes of the spine. Compression deformities n oted at T4, T5, T8, T10-T12 as on prior exam. Moderate compression fracture at T8 is new from prior. Multiple old rib fractures suggested. IMPRESSION: 1. Airway debris with bronchial wall thickening and increasing lower lobe consolidation and a dependent distribution most characteristic of acute on chronic aspiration. 2. Suspected trace emphysema. 3. Cardiomegaly. 4. Multilevel compression deformities, many which are stable from prior, although the moderate compression fracture at T8 is new. Correlate for point tenderness. Electronically signed by: Lasha Nickerson M.D. 11/11/2018 5:[address] thoracic spine wo con CLINICAL HISTORY: 57 years-old Male presenting with Pt c/o thoracic back pain, fall injury with pain in the rib cage on the left side as well as mid back pain. TECHNIQUE: Multidetector CT of the thoracic spine was performed without the use of intravenous contrast. IV contrast: None. One or more dose lowering techniques were used consistent with the principles of ALARA (as low as reasonably achievable), including automatic exposure control, mA or kV adjustment to individual patient size, and/or use of iterative reconstruction. COMPARISON: Plain radiograph from 09/14/[address] from 09/18/2018. CT DOSE (mGy.cm): The estimated cumulative dose is 1832.56 mGy.cm. FINDINGS: [employer] topogram: Left subclavian ICD with an additional ICD addendum needs suspected. Elevation of the left hemidiaphragm. Mildly exaggerated thoracic kyphosis. Underlying osteopenia suspected. Moderate compression deformity of T8, which is new from prior exam. Mild compression deformity T4, mild to moderate compression deformity at T5, mild to moderate compression deformity at T10 and mild deformities at T11 and T12 as on prior exam. No significant intervertebral disc height loss. No retropulsion of the posterior cortices of the vertebral bodies at the fractured levels. No osseous neural foraminal narrowing. Limited evaluation of the spinal canal on soft tissue windows does not demonstrate effacement allowing for the sensitivity of CT. Degenerative changes in the cervical spine noted. Visualized portion of the ribs intact. Extensive dependent consolidation in the lungs. There were noted in the trachea and distal airways. IMPRESSION: 1. Moderate compression fracture at T8 is new since the prior CT in September and is acute or subacute. Correlate with point tenderness. 2. Multilevel compression fractures unchanged from prior exam. 3. Extensive dependent consolidation in the lungs with associated airway debris, suggestive of aspiration/aspiration pneumonitis. Electronically signed by: Lasha Nickerson M.D. 11/11/2018 6:06 PM ECG Data Attestation: I personally reviewed and interpreted this ECG as follows: Indication: chest pain Rate (beats per minute): 61 Rhythm: normal sinus Findings: + left axis deviation; no ST depression and no ST elevation Blood Pressure Blood Pressure Findings: Normal blood pressure Blood Pressure Disposition: did not require urgent referral MDM Narrative This is a 57-year-old male who presents emergency department complaining of back pain. I will note that the patient is requiring oxygen therefore was given breathing treatments here in the emergency department. He was sent for CAT scan of the chest which was concerning for aspiration pneumonia. Patient has not had a bronchus since he left [place]. He was given Dilaudid in the emergency department for his pain. Based on the fact that the patient appears to have aspirated and is requiring oxygen I did discuss the case with the hospitalist service who agreed to admit the patient. Patient was pancultured and started on antibiotics and was in agreement with the treatment plan. Impression & Plan Thoracic compression fracture, Aspiration pneumonia of both lower lobes Discharge Plan Visit Data *Final* Discharge Date/Time: 11/11/18 21:16 Chief Complaint: Shoulder Pain Stated Complaint: L SHOULDER & BACK PAIN ED Provider: Imtiaz Carreno Discharge Problem: Thoracic compression fracture, Aspiration pneumonia of both lower lobes Patient Disposition: Admitted As Inpatient Discharge Instructions Interventions: ED Discharge Assessment Last Done: 11/11/18 21:16 The scribe's documentation has been prepared under my direction and personally reviewed by me in its entirety. I confirm that the note above accurately reflects all work, treatment, procedures, and medical decision making performed by me.
[2018-11-12] MEDS: methylPREDNISolone 40 MG in SYRINGE 0 ML IV SCH ×2 (03:16→11:57)
[2018-11-12] MEDS: OXYCODONE/ACETAMINOPHEN 10-325 TAB PO PRN ×3 (03:16→11:57)
[2018-11-12] MEDS: VANCOMYCIN HCL 1,250 MG in SODIUM CHLORIDE 0.9% 250 ML IV SCH ×2 (05:52→18:04)
[2018-11-12] MEDS: ALBUT/IPRATROP 3MG/0.5MG NEB 3 ML VIAL NEB SCH ×4 (07:01→19:34)
[2018-11-12 07:36] LABS: Hematocrit (blood only) 35.1 % (42-52); Hemoglobin 11.6 g/dL (14.0-18.0); Immature Granulocytes # (auto) 0.01 K/uL (0.00-0.02); Immature Granulocytes % (auto) 0.4 %; Lymphocytes # (auto) 0.48 K/uL (1.2-3.4); Lymphocytes % (auto) 17.1 %; Mean Platelet Volume 9.7 fL (7.4-10.4); Monocytes # (auto) 0.04 K/uL (0.11-0.59); Monocytes % (auto) 1.4 %; Neutrophils # (auto) 2.27 K/uL (1.4-6.5); Neutrophils % (auto) 81.1 %; Platelet Count 168 K/uL (130-400); RDW Coefficient of Variation 16.4 % (11.5-14.5); RDW Standard Deviation 58.7 fL (36.4-46.3); Red Blood Count 3.58 M/uL (4.7-6.1)
--- NOTE | 2018-11-12 07:36 | Hospitalist Progress Note ---
Date of Service November 12, 2018 Assessment & Plan (1) Aspiration pneumonia of both lower lobes: Aspiration pneumonia both lower lobes/COPD- Imaging studies suggest with debris found in both lower lobes, patient says he is been sick for a few days Patient on vancomycin IV and Zosyn IV. Duonebs every 4 hours while awake and every 2 hours when necessary.. Solu-Medrol 40 mg IV every 8 hours. Rapidly tapered oral steroids Nasal cannula oxygen, titrate to keep pulse ox around 94 to 95%. Consult speech therapy. (2) Thoracic compression fracture: Patient has significant pain in the appropriate area. He does have some challenges in the past with opiates and is currently anticoagulated for atrial fibrillation subsequently we will not use nonsteroidals he is scheduled Tylenol Miacalcin and oxycodone try to help his back pain along with topical lidocaine patches (3) Chronic viral hepatitis C: Normal LFTs. (4) Coronary artery disease: CAD/hypertension/CHF/AICD/paroxysmal atrial fibrillation/ischemic cardiomyopathy- Continue usual medications: Amiodarone, aspirin, carvedilol, clopidogrel, Eliquis, spironolactone and torsemide. (5) ICD (implantable cardioverter-defibrillator), single, in situ: See above (6) Chronic systolic (congestive) heart failure: This is stable at this time we will watch for decompensation as the patient is fairly sensitive to volume (7) Hypertension: Patient is issues with orthostatic hypotension will continue his home antihypertension regiment (8) Paroxysmal A-fib: She remains fully anticoagulated with Eliquis and rate controlled with carvedilol (9) Ischemic cardiomyopathy: See above (10) COPD (chronic obstructive pulmonary disease): She is currently on steroids tapering oral dosing (11) CKD (chronic kidney disease), stage II: Creatinine close to baseline at 1.34. (12) GERD (gastroesophageal reflux disease): Continue ranitidine and pantoprazole (13) Depression: Depression/anxiety- , Lorazepam and buspirone. Lexapro Subjective pts biggest issues is pain from his T8 acute compression fracture without and radicular symptoms, he was cleared by speech to swallow regular diet Review of Systems Review of Systems: ROS: well nourished well developed. No double vision blurry vision No problems with speech or swallowing No palpitations, chest pain or pressure No Wheezing but does have non productive cough No abdominal pain nausea vomiting diarrhea changes No burning urine urine frequency or changes in color No focal joint pain or muscle pain No skin rashes or oral lesions No unusual bruising or bleeding lower to mid back focused back pain without numbness or loss of strength No changes in memory or confusion Physical Exam Physical Exam: The patient appeared well nourished and normally developed. Vital signs as documented. Head exam is unremarkable. normocephalic, atraumatic Neck is without jugular venous distension, thyromegaly, or lymphademopathy Lungs are clear to auscultation and without rales or rhonchi Cardiac exam reveals Rhythm is regular. Systolic ejection murmurs heard Abdominal exam reveals normal bowel sounds, no masses, no organomegaly Extremities are nonedematous and both pedal pulses are present Neurologic exam is A&Ox3 reproducible point tenderness in the appropriate area towards T8 fracture Psychologically seems depressed, but is in pain Skin is warm Dry without bruises or lesions Results & Data Vital Signs (Past 12 Hours) Vital Signs Temp Pulse Pulse Pulse Resp BP BP 11/12/18 07:01 71 16 11/12/18 03:20 36.4 C L 66 18 11/11/18 23:18 36.4 C L 19 11/11/18 22:03 36.5 C 79 18 109/75 11/11/18 21:23 69 16 11/11/18 21:16 66 19 125/89 11/11/18 21:00 66 19 125/89 11/11/18 20:30 70 20 99/73 L 11/11/18 20:00 69 15 108/75 BP Pulse Ox 11/12/18 07:01 92 11/12/18 03:20 120/78 93 11/11/18 23:18 105/69 96 11/11/18 22:03 92 11/11/18 21:23 113/83 98 11/11/18 21:16 93 11/11/18 21:00 93 11/11/18 20:30 95 11/11/18 20:00 94 PG Care Time/CCT Total # of Minutes Spent Total Time Spent with Patient: Total time spent is greater than 50% in coordination of care (as documented) at patient's floor/unit and/or counseling patient:
[2018-11-12 07:53] LABS: INR 1.2 (0.9-1.1); Partial Thromboplastin Ratio 1.2; Partial Thromboplastin Time 32.2 Seconds (21.0-31.0); Prothrombin Time 12.5 Seconds (9.0-12.0)
[2018-11-12] MEDS: BusPIRone 15 MG TAB PO SCH ×3 (08:02→20:21)
[2018-11-12] MEDS: ESCITALOPRAM OXALATE 10 MG TAB PO SCH (08:02)
[2018-11-12] MEDS: IPRATROPIUM BROMIDE/ALBUTEROL respimat INH INH SCH ×3 (08:02→20:20)
[2018-11-12] MEDS: AMIODARONE 200 MG TAB PO SCH ×2 (08:03→20:21)
[2018-11-12] MEDS: CLOPIDOGREL BISULFATE 75 MG TAB PO SCH (08:03)
[2018-11-12] MEDS: ASPIRIN 81 MG ECTAB PO SCH (08:04)
[2018-11-12] MEDS: CARVEDILOL 6.25 MG TAB PO SCH ×2 (08:04→20:23)
[2018-11-12] MEDS: APIXABAN 5 MG TABLET PO SCH ×2 (08:04→20:23)
[2018-11-12] MEDS: LIDOCAINE 5% 1 PATCH TD SCH (08:05)
[2018-11-12] MEDS: CETIRIZINE HCL 10 MG TABLET PO SCH (08:06)
[2018-11-12] MEDS: PIPERACILLIN/TAZOBACTAM 3.375 GM in DEXTROSE 5% 100 ML IV SCH ×3 (08:07→23:59)
[2018-11-12] MEDS: AZELASTINE~ORDER AWAITING ACTION SCH ×2 (08:08→15:52)
[2018-11-12 08:14] LABS: Albumin Level 2.9 gm/dl (3.4-5.0); BUN Creatinine Ratio 13.3 (10-20); Calcium 8.9 mg/dl (8.5-10.1); Est GFR (African American) 74.7; Est GFR (Non-African American) 64.5; Potassium 4.5 mmol/L (3.5-5.1)
[2018-11-12 08:17] LABS: Albumin Globulin Ratio 0.7 (0.9-2); Bilirubin,Total 0.4 mg/dl (0.2-1); Globulin 3.9 gm/dl (2.5-4.0); Total Protein 6.8 gm/dl (6.4-8.2)
[2018-11-12] MEDS ORDERED: NON-FORMULARY MEDICATION (Coenzyme Q10 [Co Q-10] 200 MG) PO SCH (09:00)
[2018-11-12] MEDS: POLYETHYLENE (MIRALAX) 17 GM PACK PO PRN (10:26)
[2018-11-12] MEDS ORDERED: HYDROmorphone INJ 0.5 MG/0.5 ML SYR IV STA (12:27)
[2018-11-12] MEDS: CALCITONIN SALMON NA 200 IU/AC 3.7 ML BTL SCH (12:53)
--- NOTE | 2018-11-12 14:14 | Pharmacy Report ---
Pharmacy Abx Initial Consult - Date of Service November 12, 2018 - Pharmacy Dosing Scope Date of Consult: 11/12/18 Consultation requested by: Dr. Mathew Pharmacy is consulted to initiate Vancomycin IV/PO dosing therapy, order appropriate labs and adjust drug dose/frequency. - Subjective The patient is a 57 year old M admitted on 11/11/18 20:22. - Objective Height: 6 ft 4 in Weight: 103.2 kg Vital Signs (Past 12hrs): Vital Signs Temp Pulse Pulse Pulse Resp BP BP 11/12/18 11:31 36.8 C 64 18 97/63 L 11/12/18 11:06 73 16 11/12/18 08:00 73 11/12/18 07:51 36.5 C 68 18 114/68 11/12/18 07:01 71 16 11/12/18 03:20 36.4 C L 66 18 120/78 Pulse Ox 11/12/18 11:31 92 11/12/18 11:06 93 11/12/18 08:00 11/12/18 07:51 92 11/12/18 07:01 92 11/12/18 03:20 93 Lab Results (24hrs): Laboratory Tests (24 Hours) 11/12/18 11/12/18 11/11/18 07:18 07:18 16:31 WBC 2.80 L Neut # (Auto) 2.27 Creatinine 1.22 1.34 Est Cr Clr Drug Dosing 80.0 76.3 Total Creatine Kinase 61 11/11/18 16:31 WBC 4.84 Neut # (Auto) 2.75 Creatinine Est Cr Clr Drug Dosing Total Creatine Kinase Micro Results: 11/11/18 18:59 Aerobic Blood Culture - Pending Blood Anaerobic Blood Culture - Pending 11/11/18 18:59 Aerobic Blood Culture - Pending Blood Anaerobic Blood Culture - Pending - Risk Factors for Resistance * Hospitalization for 48 hours or more within the past 90 days - Assessment & Plan Assessment 57 year old M admitted with aspiration Pneumonia. Given his recent hospital admission, he is ordered Vancomycin + Zosyn to cover for MRSA and Pseudomonas. Plan Vancomycin IV * Estimated PK Parameters: Vd 0.7 L/kg, Johnathan 0.065 hr-1, t1/2 10.7 hr * Loading dose: Vancomycin 2000 mg (19.2 mg/kg) x 1 dose given yesterday at 19:28. * Maintenance dose: 1250 mg IV (12.1 mg/kg) every 12 hours * Goal trough level for Pneumonia: 15 to 20 mcg/mL * Trough level ordered for 11/13/18 before dose at 0600. This will be obtained after only 2 maintenance doses of Vanco and therefore will not be at steady- state. Pharmacy will continue to follow and will adjust dose/frequency as necessary. Thank you.
[2018-11-12] MEDS: ACETAMINOPHEN 500 MG TAB PO SCH ×2 (14:19→20:20)
[2018-11-12] MEDS: OXYCODONE HCL IR 5 MG TAB (IMMEDIATE RELEASE) PO PRN ×2 (14:23→20:19)
[2018-11-12] MEDS: HYDROmorphone INJ 0.5 MG/0.5 ML SYR IV PRN ×2 (16:02→21:20)
[2018-11-12] MEDS: DOCUSATE SODIUM 100 MG CAP PO SCH (20:19)
[2018-11-12] MEDS: ATORVASTATIN 40 MG TAB PO SCH (20:19)
[2018-11-12] MEDS: LORazepam 1 MG TAB PO PRN (21:19)
[2018-11-13] MEDS: HYDROmorphone INJ 0.5 MG/0.5 ML SYR IV PRN ×5 (02:10→22:32)
[2018-11-13] MEDS: OXYCODONE HCL IR 5 MG TAB (IMMEDIATE RELEASE) PO PRN ×4 (03:36→22:05)
[2018-11-13] MEDS ORDERED: VANCOMYCIN TROUGH ONE (05:30)
[2018-11-13 06:19] LABS: Basophils # (auto) 0.02 K/uL (0-0.2); Basophils % (auto) 0.3 %; Hematocrit (blood only) 33.5 % (42-52); Hemoglobin 11.2 g/dL (14.0-18.0); Immature Granulocytes # (auto) 0.02 K/uL (0.00-0.02); Immature Granulocytes % (auto) 0.3 %; Lymphocytes # (auto) 1.05 K/uL (1.2-3.4); Lymphocytes % (auto) 14.4 %; Mean Corpuscular Hgb Conc 33.4 g/dL (32-36); Mean Corpuscular Volume 97.1 fL (80-100); Monocytes # (auto) 0.94 K/uL (0.11-0.59); Monocytes % (auto) 12.9 %; Neutrophils # (auto) 5.26 K/uL (1.4-6.5); Neutrophils % (auto) 72.1 %; Platelet Count 187 K/uL (130-400); RDW Coefficient of Variation 16.8 % (11.5-14.5); RDW Standard Deviation 59.7 fL (36.4-46.3); Red Blood Count 3.45 M/uL (4.7-6.1); White Blood Count 7.29 K/uL (4.8-10.8)
[2018-11-13 06:37] LABS: INR 1.2 (0.9-1.1); Prothrombin Time 11.9 Seconds (9.0-12.0)
[2018-11-13] MEDS: ALBUT/IPRATROP 3MG/0.5MG NEB 3 ML VIAL NEB SCH (06:52)
[2018-11-13 07:00] LABS: Albumin Level 2.9 gm/dl (3.4-5.0); BUN Creatinine Ratio 13.6 (10-20); Calcium 8.4 mg/dl (8.5-10.1); Creatinine Clr Calc Pharmacy 84.1 ml/min; Est GFR (African American) 71.2; Est GFR (Non-African American) 61.4; Magnesium 2.6 mg/dl (1.8-2.4); Potassium 4.2 mmol/L (3.5-5.1)
[2018-11-13 07:03] LABS: Albumin Globulin Ratio 0.8 (0.9-2); Bilirubin,Total 0.3 mg/dl (0.2-1); Globulin 3.8 gm/dl (2.5-4.0); Total Protein 6.7 gm/dl (6.4-8.2)
[2018-11-13] MEDS: VANCOMYCIN HCL 1,250 MG in SODIUM CHLORIDE 0.9% 250 ML IV SCH (07:14)
[2018-11-13] MEDS: PIPERACILLIN/TAZOBACTAM 3.375 GM in DEXTROSE 5% 100 ML IV SCH ×2 (07:15→15:35)
[2018-11-13] MEDS: AZELASTINE~ORDER AWAITING ACTION SCH ×2 (07:15)
[2018-11-13] MEDS ORDERED: ALBUT/IPRATROP 3MG/0.5MG NEB 3 ML VIAL NEB PRN (08:01)
[2018-11-13] MEDS: LIDOCAINE 5% 1 PATCH TD SCH (08:07)
[2018-11-13] MEDS: AMIODARONE 200 MG TAB PO SCH ×2 (08:08→21:39)
[2018-11-13] MEDS: ESCITALOPRAM OXALATE 10 MG TAB PO SCH (08:08)
[2018-11-13] MEDS: CLOPIDOGREL BISULFATE 75 MG TAB PO SCH (08:08)
[2018-11-13] MEDS: CARVEDILOL 6.25 MG TAB PO SCH ×2 (08:08→21:38)
[2018-11-13] MEDS: BusPIRone 15 MG TAB PO SCH ×3 (08:08→21:38)
[2018-11-13] MEDS: CALCITONIN SALMON NA 200 IU/AC 3.7 ML BTL SCH (08:09)
[2018-11-13] MEDS: CETIRIZINE HCL 10 MG TABLET PO SCH (08:09)
[2018-11-13] MEDS: ASPIRIN 81 MG ECTAB PO SCH (08:09)
[2018-11-13] MEDS: IPRATROPIUM BROMIDE/ALBUTEROL respimat INH INH SCH ×3 (08:09→21:35)
[2018-11-13] MEDS: APIXABAN 5 MG TABLET PO SCH ×2 (08:10→21:39)
[2018-11-13] MEDS: ACETAMINOPHEN 500 MG TAB PO SCH ×4 (08:11→21:39)
--- NOTE | 2018-11-13 09:01 | Pharmacy Report ---
Pharmacy Abx Dose Progress Nt - Date of Service November 13, 2018 - Pharmacy Dosing Scope The patient is currently receiving the following antimicrobial agents per Pharmacy consult: Vancomycin 1,250 mg IV every 12 hours + Zosyn 3.375g IV Q8hrs - Objective Vital Signs (Past 12hrs): Vital Signs Temp Pulse Pulse Resp BP BP Pulse Ox 11/13/18 07:53 36.7 C 74 19 123/86 92 11/13/18 07:15 80 11/13/18 04:35 36.9 C 76 103/67 91 11/13/18 00:00 77 11/12/18 23:45 36.8 C 73 18 108/66 91 Lab Results (24hrs): Laboratory Tests (24 Hours) 11/13/18 11/13/18 11/13/18 05:47 05:47 05:47 WBC 7.29 Neut # (Auto) 5.26 Creatinine 1.27 Est Cr Clr Drug Dosing 84.1 Vancomycin Trough 17.7 Micro Results: Microbiology 11/11/18 18:59 Blood Aerobic Blood Culture - Preliminary 11/11/18 18:59 Blood Anaerobic Blood Culture - Preliminary No growth in Aerobic bottle after 24 hours. No growth in Anaerobic bottle after 24 hours. 11/11/18 18:59 Blood Aerobic Blood Culture - Preliminary 11/11/18 18:59 Blood Anaerobic Blood Culture - Preliminary No growth in Aerobic bottle after 24 hours. No growth in Anaerobic bottle after 24 hours. - Risk Factors for Resistance * Hospitalization for 48 hours or more within the past 90 days * Hep C - Assessment & Plan Assessment * 57 year old M receiving Vanco + Zosyn for treatment of aspiration pneumonia * Day # 3 of antimicrobial therapy * Vancomycin trough level is in goal range at 17.7mcg/ml today. However, concern for accumulation as this trough level is prior to the 3rd maintenance dose (not quite steady state yet) * Additionally, patient with CKD at baseline. * The risk of RODNEY increases significantly with the combination of Vanco+Zosyn as compared with patients treated with vanco alone. Combined use of Vanco+Zosyn carries a much higher risk of RODNEY than either antibiotic monotherapy regimen. Therefore, this broad-spectrum combination should be used cautiously in patients with a high likelihood of developing kidney injury. * Unfortunately, MRSA nasal swab not obtained to help guide de-escalation. * However, may consider dc Vanco for aspiration pneumonia indication Plan Vancomycin IV * Trough level of 17.7 mcg/mL is therapeutic but may continue to accumulate and pt at risk for RODNEY with vanco+zosyn combination. Will empirically lengthen doing interval slightly. * Change to 1,250 mg IV every 14 hours * Goal trough level for Pulmonary : 15 to 20 mcg/mL * Trough or random level ordered for: 11/15/18 @ 1330 * Less than traditional dose and/or extended dosing interval selected due to likelihood of drug accumulation in obese patient/CKD. Piperacillin/tazobactam * Continue 3.375 g IV extended infusion every 8 hours for CrCl greater than 20 mL/min Pharmacy will continue to follow and will adjust dose/frequency as necessary. Thank you.
[2018-11-13] MEDS: POLYETHYLENE (MIRALAX) 17 GM PACK PO PRN (09:52)
[2018-11-13] MEDS: DICLOFENAC SOD 1% GEL 100 GM TUBE EXT PRN (11:26)
--- NOTE | 2018-11-13 17:13 | Hospitalist Progress Note ---
Date of Service November 13, 2018 Assessment & Plan (1) Aspiration pneumonia of both lower lobes: Aspiration pneumonia both lower lobes/COPD-clinically improving we will de-escalate vancomycin to just Zosyn Duonebs every 4 hours while awake and every 2 hours when necessary.. Solu-Medrol 40 mg IV Rapidly taper to oral steroids Nasal cannula oxygen, titrate to keep pulse ox around 94 to 95%. Consulted speech therapy feel there is no aspiration risk at this time (2) Thoracic compression fracture: Patient has significant pain in the appropriate area. He does have some challenges in the past with opiates and is currently anticoagulated for atrial fibrillation subsequently we will not use nonsteroidals he is scheduled Tylenol Miacalcin and oxycodone try to help his back pain along with topical lidocaine patches given the fact that he is resistant, the use of Tylenol we reinforced this is more of a combination than this pinpoint therapy to help his pain (3) Chronic viral hepatitis C: Normal LFTs. (4) Coronary artery disease: CAD/hypertension/CHF/AICD/paroxysmal atrial fibrillation/ischemic cardiomyopathy-remains stable Continue usual medications: Amiodarone, aspirin, carvedilol, clopidogrel, Eliquis, spironolactone and torsemide. (5) ICD (implantable cardioverter-defibrillator), single, in situ: See above (6) Chronic systolic (congestive) heart failure: This is stable at this time we will watch for decompensation as the patient is fairly sensitive to volume (7) Hypertension: Patient is issues with orthostatic hypotension will continue his home antihypertension regiment (8) Paroxysmal A-fib: She remains fully anticoagulated with Eliquis and rate controlled with carvedilol (9) Ischemic cardiomyopathy: See above (10) COPD (chronic obstructive pulmonary disease): She is currently on steroids tapering oral dosing (11) CKD (chronic kidney disease), stage II: Creatinine close to baseline at 1.34. (12) GERD (gastroesophageal reflux disease): Continue ranitidine and pantoprazole (13) Depression: Depression/anxiety- , Lorazepam and buspirone. Lexapro Subjective Patient has continued pain is been refusing his Tylenol pain is centered on his T8 compression fracture is not any volume overload at this time Review of Systems Review of Systems: ROS: well nourished well developed. No double vision blurry vision No problems with speech or swallowing No palpitations, chest pain or pressure No Wheezing or breathing issues No abdominal pain nausea vomiting diarrhea No burning urine urine frequency or changes in color No focal joint pain or muscle pain No skin rashes or oral lesions No unusual bruising or bleeding Continues with focused back pain is mid to low scapular area without radiation No changes in memory or confusion Physical Exam Physical Exam: The patient appeared well nourished and normally developed. Vital signs as documented. Head exam is unremarkable. normocephalic, atraumatic Neck is without jugular venous distension, thyromegaly, or lymphademopathy Lungs are clear with mild basilar crackles Cardiac exam reveals Rhythm is regular. Systolic ejection murmur Abdominal exam reveals normal bowel sounds, no masses, no organomegaly Extremities are nonedematous and both pedal pulses are present Neurologic exam is A&Ox3, no focal deficits, strength is equal bilateral Psychologically seems neither anxious or depressed Skin is warm Dry without bruises or lesions Results & Data Vital Signs (Past 12 Hours) Vital Signs Temp Pulse Pulse Resp BP Pulse Ox 11/13/18 15:41 37.0 C 76 18 122/85 92 11/13/18 10:33 36.3 C L 75 18 130/84 97 11/13/18 07:53 36.7 C 74 19 123/86 92 11/13/18 07:15 80 PG Care Time/CCT Total # of Minutes Spent Total Time Spent with Patient: Total time spent is greater than 50% in coordination of care (as documented) at patient's floor/unit and/or counseling patient: (1) Aspiration pneumonia of both lower lobes Aspiration pneumonia type: unspecified Qualified Code(s): J69.0 - Pneumonitis due to inhalation of food and vomit (2) Thoracic compression fracture Encounter type: initial encounter Thoracic vertebra fracture level: unspecified thoracic vertebra Qualified Code(s): S22.000A - Wedge compression fracture of unspecified thoracic vertebra, initial encounter for closed fracture
[2018-11-13] MEDS ORDERED: predniSONE 20 MG TAB PO STA (17:14)
[2018-11-13] MEDS: ATORVASTATIN 40 MG TAB PO SCH (21:39)
[2018-11-13] MEDS: DOCUSATE SODIUM 100 MG CAP PO SCH (21:39)
[2018-11-14] MEDS: PIPERACILLIN/TAZOBACTAM 3.375 GM in DEXTROSE 5% 100 ML IV SCH ×3 (00:10→16:44)
[2018-11-14] MEDS: OXYCODONE HCL IR 5 MG TAB (IMMEDIATE RELEASE) PO PRN ×4 (04:23→22:05)
[2018-11-14] MEDS: HYDROmorphone INJ 0.5 MG/0.5 ML SYR IV PRN ×4 (04:24→19:29)
[2018-11-14 07:44] LABS: Basophils # (auto) 0.04 K/uL (0-0.2); Basophils % (auto) 0.8 %; Eosinophils # (auto) 0.06 K/uL (0-0.5); Eosinophils % (auto) 1.2 %; Hematocrit (blood only) 38.3 % (42-52); Hemoglobin 12.3 g/dL (14.0-18.0); Immature Granulocytes # (auto) 0.04 K/uL (0.00-0.02); Immature Granulocytes % (auto) 0.8 %; Lymphocytes # (auto) 0.85 K/uL (1.2-3.4); Mean Corpuscular Hgb Conc 32.1 g/dL (32-36); Mean Corpuscular Volume 98.5 fL (80-100); Mean Platelet Volume 10.2 fL (7.4-10.4); Monocytes # (auto) 0.49 K/uL (0.11-0.59); Monocytes % (auto) 9.8 %; Neutrophils # (auto) 3.53 K/uL (1.4-6.5); Neutrophils % (auto) 70.4 %; Platelet Count 183 K/uL (130-400); RDW Standard Deviation 61.8 fL (36.4-46.3); Red Blood Count 3.89 M/uL (4.7-6.1); White Blood Count 5.01 K/uL (4.8-10.8)
[2018-11-14 07:52] LABS: INR 1.2 (0.9-1.1); Prothrombin Time 11.7 Seconds (9.0-12.0)
[2018-11-14 08:13] LABS: Albumin Globulin Ratio 0.8 (0.9-2); Albumin Level 2.9 gm/dl (3.4-5.0); BUN Creatinine Ratio 13.2 (10-20); Bilirubin,Total 0.3 mg/dl (0.2-1); Calcium 9.2 mg/dl (8.5-10.1); Creatinine Clr Calc Pharmacy 83.7 ml/min; Est GFR (African American) 71.4; Est GFR (Non-African American) 61.6; Globulin 3.7 gm/dl (2.5-4.0); Magnesium 2.6 mg/dl (1.8-2.4); Potassium 4.9 mmol/L (3.5-5.1); Total Protein 6.6 gm/dl (6.4-8.2)
[2018-11-14] MEDS: AMIODARONE 200 MG TAB PO SCH ×2 (08:25→20:09)
[2018-11-14] MEDS: CARVEDILOL 6.25 MG TAB PO SCH ×2 (08:25→20:09)
[2018-11-14] MEDS: predniSONE 20 MG TAB PO SCH (08:25)
[2018-11-14] MEDS: ESCITALOPRAM OXALATE 10 MG TAB PO SCH (08:25)
[2018-11-14] MEDS: CETIRIZINE HCL 10 MG TABLET PO SCH (08:25)
[2018-11-14] MEDS: CLOPIDOGREL BISULFATE 75 MG TAB PO SCH (08:25)
[2018-11-14] MEDS: IPRATROPIUM BROMIDE/ALBUTEROL respimat INH INH SCH ×3 (08:26→20:09)
[2018-11-14] MEDS: ACETAMINOPHEN 500 MG TAB PO SCH ×3 (08:26→20:10)
[2018-11-14] MEDS: ASPIRIN 81 MG ECTAB PO SCH (08:27)
[2018-11-14] MEDS: BusPIRone 15 MG TAB PO SCH ×3 (08:27→20:09)
[2018-11-14] MEDS: CALCITONIN SALMON NA 200 IU/AC 3.7 ML BTL SCH (08:27)
[2018-11-14] MEDS: APIXABAN 5 MG TABLET PO SCH ×2 (08:28→20:10)
[2018-11-14] MEDS: LIDOCAINE 5% 1 PATCH TD SCH (08:28)
--- NOTE | 2018-11-14 12:49 | Hospitalist Progress Note ---
Date of Service November 14, 2018 Assessment & Plan (1) Aspiration pneumonia of both lower lobes: Aspiration pneumonia both lower lobes/COPD-continues to clinically improve will transition from Zosyn to Augmentin on 11/15 Duonebs every 4 hours while awake and every 2 hours when necessary.. Solu-Medrol 40 mg IV initially rapidly taper to no steroids Nasal cannula oxygen, titrate to keep pulse ox around 94 to 95%. Consulted speech therapy feel there is no aspiration risk at this time (2) Thoracic compression fracture: Patient has significant pain in the appropriate area. He does have some challenges in the past with opiates and is currently anticoagulated for atrial fibrillation subsequently we will not use nonsteroidals he is scheduled Tylenol Miacalcin and oxycodone try to help his back pain along with topical lidocaine patches given the fact that he is resistant, the use of Tylenol we reinforced this is more of a combination than this pinpoint therapy to help his pain patient his pain is improved from 1 day prior he is continue to try to ambulate on the floor (3) Chronic viral hepatitis C: Normal LFTs. (4) Coronary artery disease: CAD/hypertension/CHF/AICD/paroxysmal atrial fibrillation/ischemic cardiomyopathy-remains stable Continue usual medications: Amiodarone, aspirin, carvedilol, clopidogrel, Eliquis, spironolactone and torsemide. (5) ICD (implantable cardioverter-defibrillator), single, in situ: See above (6) Chronic systolic (congestive) heart failure: Patient has chronic systolic heart failure (HF R EF), he typically takes furosemide 60 mg daily this will be restarted (7) Hypertension: Patient is issues with orthostatic hypotension will continue his home antihypertension regiment (8) Paroxysmal A-fib: She remains fully anticoagulated with Eliquis and rate controlled with carvedilol (9) Ischemic cardiomyopathy: See above (10) COPD (chronic obstructive pulmonary disease): She is currently on steroids tapering oral dosing (11) CKD (chronic kidney disease), stage II: Creatinine close to baseline at 1.34. (12) GERD (gastroesophageal reflux disease): Continue ranitidine and pantoprazole (13) Depression: Depression/anxiety- , Lorazepam and buspirone. Lexapro Subjective Patient states his back pain is still significant mostly with transitions from lying sitting sitting standing. He does not have any issues with his congestive heart failure. Incidentally noted today is his birthday Review of Systems Review of Systems: ROS: well nourished well developed. No double vision blurry vision No problems with speech or swallowing No palpitations, chest pain or pressure No Wheezing or breathing issues No abdominal pain nausea vomiting diarrhea No burning urine urine frequency or changes in color No focal joint pain or muscle pain No skin rashes or oral lesions No unusual bruising or bleeding Patient continues with back pain in his lower thoracic area consistent with his T8 compression fracture without radicular distribution No changes in memory or confusion Physical Exam Physical Exam: The patient appeared well nourished and normally developed. Vital signs as documented. Head exam is unremarkable. normocephalic, atraumatic Neck is without jugular venous distension, thyromegaly, or lymphademopathy Lungs are clear to auscultation and percussion. Cardiac exam reveals Rhythm is regular. Systolic ejection murmurs heard Abdominal exam reveals normal bowel sounds, no masses, no organomegaly Extremities are nonedematous and both pedal pulses are present Patient continues with back pain in his lower thoracic area consistent with his T8 compression fracture without radicular distribution Neurologic exam is A&Ox3, no focal deficits, strength is equal bilateral Psychologically seems neither anxious or depressed Skin is warm Dry without bruises or lesions Results & Data Vital Signs (Past 12 Hours) Vital Signs Temp Pulse Resp BP Pulse Ox 11/14/18 07:18 36.4 C L 72 16 132/91 96 PG Care Time/CCT Total # of Minutes Spent Total Time Spent with Patient: Total time spent is greater than 50% in coordination of care (as documented) at patient's floor/unit and/or counseling patient: (1) Thoracic compression fracture Encounter type: initial encounter Thoracic vertebra fracture level: unspecified thoracic vertebra Qualified Code(s): S22.000A - Wedge compression fracture of unspecified thoracic vertebra, initial encounter for closed fracture (2) Aspiration pneumonia of both lower lobes Aspiration pneumonia type: unspecified Qualified Code(s): J69.0 - Pneumonitis due to inhalation of food and vomit
[2018-11-14] MEDS: TORSEMIDE 10 MG TAB PO SCH (14:41)
[2018-11-14] MEDS ORDERED: BEER 1 CAN PO ONE (16:30)
[2018-11-14] MEDS: DOCUSATE SODIUM 100 MG CAP PO SCH (20:07)
[2018-11-14] MEDS: ATORVASTATIN 40 MG TAB PO SCH (20:09)
[2018-11-14] MEDS: LORazepam 1 MG TAB PO PRN (20:10)
[2018-11-15] MEDS: HYDROmorphone INJ 0.5 MG/0.5 ML SYR IV PRN ×5 (00:04→21:34)
[2018-11-15] MEDS: PIPERACILLIN/TAZOBACTAM 3.375 GM in DEXTROSE 5% 100 ML IV SCH ×4 (00:04→23:33)
[2018-11-15] MEDS: OXYCODONE HCL IR 5 MG TAB (IMMEDIATE RELEASE) PO PRN ×2 (06:42→12:49)
[2018-11-15] MEDS: BusPIRone 15 MG TAB PO SCH ×3 (07:39→21:21)
[2018-11-15] MEDS: CARVEDILOL 6.25 MG TAB PO SCH ×2 (07:39→21:32)
[2018-11-15] MEDS: ESCITALOPRAM OXALATE 10 MG TAB PO SCH (07:39)
[2018-11-15] MEDS: CLOPIDOGREL BISULFATE 75 MG TAB PO SCH (07:39)
[2018-11-15] MEDS: predniSONE 20 MG TAB PO SCH (07:40)
[2018-11-15] MEDS: CETIRIZINE HCL 10 MG TABLET PO SCH (07:40)
[2018-11-15] MEDS: TORSEMIDE 10 MG TAB PO SCH (07:40)
[2018-11-15] MEDS: APIXABAN 5 MG TABLET PO SCH ×2 (07:41→21:30)
[2018-11-15] MEDS: ASPIRIN 81 MG ECTAB PO SCH (07:41)
[2018-11-15] MEDS: AMIODARONE 200 MG TAB PO SCH ×2 (07:41→21:30)
[2018-11-15] MEDS: ACETAMINOPHEN 500 MG TAB PO SCH ×2 (07:43→13:28)
[2018-11-15] MEDS: CALCITONIN SALMON NA 200 IU/AC 3.7 ML BTL SCH (07:43)
[2018-11-15] MEDS: LIDOCAINE 5% 1 PATCH TD SCH (07:43)
[2018-11-15] MEDS: IPRATROPIUM BROMIDE/ALBUTEROL respimat INH INH SCH ×3 (07:43→21:20)
--- NOTE | 2018-11-15 14:01 | Hospitalist Progress Note ---
Date of Service November 15, 2018 Assessment & Plan (1) Aspiration pneumonia of both lower lobes: Aspiration pneumonia both lower lobes/COPD-continues to clinically improve will transition from Zosyn to Augmentin on 11/15 Duonebs every 4 hours while awake and every 2 hours when necessary.. Solu-Medrol 40 mg IV initially rapidly taper to no steroids Nasal cannula oxygen, titrate to keep pulse ox around 94 to 95%. Consulted speech therapy feel there is no aspiration risk at this time (2) Thoracic compression fracture: Patient has significant pain in the appropriate area. He does have some challenges in the past with opiates and is currently anticoagulated for atrial fibrillation subsequently we will not use nonsteroidals he is scheduled Tylenol Miacalcin and oxycodone try to help his back pain along with topical lidocaine patches given the fact that he is resistant, the use of Tylenol we reinforced this is more of a combination than this pinpoint therapy to help his pain patient his pain is improved from 1 day prior he is continue to try to ambulate on the floor (3) Chronic viral hepatitis C: Normal LFTs. (4) Coronary artery disease: CAD/hypertension/CHF/AICD/paroxysmal atrial fibrillation/ischemic cardiomyopathy-remains stable Continue usual medications: Amiodarone, aspirin, carvedilol, clopidogrel, Eliquis, spironolactone and torsemide. (5) ICD (implantable cardioverter-defibrillator), single, in situ: See above (6) Chronic systolic (congestive) heart failure: Patient has chronic systolic heart failure (HF R EF), he typically takes furosemide 60 mg daily this will be restarted (7) Hypertension: Patient is issues with orthostatic hypotension will continue his home antihypertension regiment (8) Paroxysmal A-fib: She remains fully anticoagulated with Eliquis and rate controlled with carvedilol (9) Ischemic cardiomyopathy: See above (10) COPD (chronic obstructive pulmonary disease): She is currently on steroids tapering oral dosing (11) CKD (chronic kidney disease), stage II: Creatinine close to baseline at 1.34. (12) GERD (gastroesophageal reflux disease): Continue ranitidine and pantoprazole (13) Depression: Depression/anxiety- , Lorazepam and buspirone. Lexapro Subjective pt is ambulating in the hallways, he has pain when he has transitions of positions, he feels that he maybe ready in the next few days Review of Systems Review of Systems: ROS: well nourished well developed. No double vision blurry vision No problems with speech or swallowing No palpitations, chest pain or pressure No Wheezing or breathing issues No abdominal pain nausea vomiting diarrhea No burning urine urine frequency or changes in color No focal joint pain or muscle pain No skin rashes or oral lesions No unusual bruising or bleeding Lower thoracic focal back pain but no numbness or loss of strength No changes in memory or confusion Physical Exam Physical Exam: The patient appeared well nourished and normally developed. Vital signs as documented. Head exam is unremarkable. normocephalic, atraumatic Neck is without jugular venous distension, thyromegaly, or lymphademopathy Lungs are clear to auscultation and percussion. Cardiac exam reveals Rhythm is regular. First and second heart sounds normal. Abdominal exam reveals normal bowel sounds, no masses, no organomegaly Extremities are nonedematous and both pedal pulses are present Neurologic exam is A&Ox3, no focal deficits, strength is equal bilateral Psychologically seems neither anxious or depressed Skin is warm Dry without bruises or lesions Results & Data Vital Signs (Past 12 Hours) Vital Signs Temp Pulse Resp BP Pulse Ox 11/15/18 07:24 36.6 C 78 18 115/77 96 PG Care Time/CCT Total # of Minutes Spent Total Time Spent with Patient: Total time spent is greater than 50% in coordination of care (as documented) at patient's floor/unit and/or counseling patient: (1) Aspiration pneumonia of both lower lobes Aspiration pneumonia type: unspecified Qualified Code(s): J69.0 - Pneumonitis due to inhalation of food and vomit (2) Thoracic compression fracture Encounter type: initial encounter Thoracic vertebra fracture level: unspecified thoracic vertebra Qualified Code(s): S22.000A - Wedge compression fracture of unspecified thoracic vertebra, initial encounter for closed fracture
[2018-11-15] MEDS: OXYCODONE/ACETAMINOPHEN 10-325 TAB PO PRN ×3 (15:40→23:34)
[2018-11-15] MEDS: DOCUSATE SODIUM 100 MG CAP PO SCH (21:28)
[2018-11-15] MEDS: ATORVASTATIN 40 MG TAB PO SCH (21:32)
[2018-11-15] MEDS: LORazepam 1 MG TAB PO PRN (21:40)
[2018-11-16] MEDS: HYDROmorphone INJ 0.5 MG/0.5 ML SYR IV PRN ×3 (02:21→12:36)
[2018-11-16] MEDS: OXYCODONE/ACETAMINOPHEN 10-325 TAB PO PRN ×5 (03:29→22:13)
[2018-11-16 06:55] LABS: Est GFR (African American) 64.5; Est GFR (Non-African American) 55.7
[2018-11-16] MEDS: PIPERACILLIN/TAZOBACTAM 3.375 GM in DEXTROSE 5% 100 ML IV SCH (08:35)
[2018-11-16] MEDS: ASPIRIN 81 MG ECTAB PO SCH (08:37)
[2018-11-16] MEDS: APIXABAN 5 MG TABLET PO SCH ×2 (08:37→22:54)
[2018-11-16] MEDS: AMIODARONE 200 MG TAB PO SCH ×2 (08:37→21:27)
[2018-11-16] MEDS: ESCITALOPRAM OXALATE 10 MG TAB PO SCH (08:37)
[2018-11-16] MEDS: CLOPIDOGREL BISULFATE 75 MG TAB PO SCH (08:37)
[2018-11-16] MEDS: CARVEDILOL 6.25 MG TAB PO SCH ×2 (08:37→21:28)
[2018-11-16] MEDS: CETIRIZINE HCL 10 MG TABLET PO SCH (08:37)
[2018-11-16] MEDS: BusPIRone 15 MG TAB PO SCH ×3 (08:37→21:27)
[2018-11-16] MEDS: TORSEMIDE 10 MG TAB PO SCH (08:37)
[2018-11-16] MEDS: IPRATROPIUM BROMIDE/ALBUTEROL respimat INH INH SCH ×3 (08:38→21:26)
[2018-11-16] MEDS: CALCITONIN SALMON NA 200 IU/AC 3.7 ML BTL SCH (08:38)
[2018-11-16] MEDS: LIDOCAINE 5% 1 PATCH TD SCH (08:39)
[2018-11-16 09:38] LABS: BUN Creatinine Ratio 15.9 (10-20); Calcium 8.5 mg/dl (8.5-10.1); Creatinine Clr Calc Pharmacy 77.6 ml/min; Est GFR (African American) 65.1; Est GFR (Non-African American) 56.2; Potassium 4.1 mmol/L (3.5-5.1)
--- NOTE | 2018-11-16 12:44 | Hospitalist Progress Note ---
Date of Service November 16, 2018 Assessment & Plan (1) Aspiration pneumonia of both lower lobes: day 5-6 of IV zosyn. STOP zosyn today. transition to oral augmentin. plan 2 days of augmentin then stop antibiotics. Present on Admission?: Yes (2) Thoracic compression fracture: T8 - subacute (had 3 weeks of pain pre-hospitalization). STOP dilaudid in preparation for discharge. Continue percocet 10's prn. Offered to increase the strength to 15mg of oxycodone in light of significant tolerance/long-standing use of narcotics but patient declined. Cont Miacalcin nasal spray daily. Increase lidoderm patches to 2/day. Check 25-OH vit D level am. Obtain k-pad heat. NO EVIDENCE OF SPINAL CORD COMPROMISE ON NEUROLOGICAL EXAM (LEGS ARE STRONG, NO SENSORY LEVEL, ETC). Will add back prednisone 20mg daily for 3 more days to help augment his pain control. (3) Chronic viral hepatitis C: Normal LFTs. No signs of cirrhosis. (4) Coronary artery disease: Stable and w/o ischemic symptoms. Continue usual medications: aspirin, carvedilol, clopidogrel, Eliquis, spironolactone and torsemide. Resume normal torsemide dose tomorrow (60mg) and his aldactone. (5) ICD (implantable cardioverter-defibrillator), single, in situ: noted (6) Chronic systolic (congestive) heart failure: Compensated. Spoke with Cathleen Spence today from CHF clinic. He should be on 60mg daily of torsemide; resume this dose in AM. Also should be on aldactone every afternoon - resume tomorrow. (7) Hypertension: Controlled (8) Paroxysmal A-fib: Cont Eliquis Cont amiodarone Cont coreg (9) Ischemic cardiomyopathy: EF 20-25% compensated cont BB, diuretics intolerant of RALPH or ARB in past due to orthostasis (10) COPD (chronic obstructive pulmonary disease): with mild COPD exacerbation was on IV steroids; now back down to oral prednisone 3 more doses of daily prednisone 20mg then stop (11) CKD (chronic kidney disease), stage II: Creatinine at baseline BMP am (12) GERD (gastroesophageal reflux disease): Continue ranitidine and pantoprazole (13) Depression: cont Lorazepam and Lexapro (14) Discharge planning issues: warrant for pt's arrest was issued by [facility] are to be notified of his discharge they will come to hospital to pick him up and presumably bring him to [place] [facility] outside plant supervisor today spoke with [facility] office they are aware of d/c tomorrow morning Subjective patient eating well. minimal cough. no dyspnea. no orthopnea. no fevers/chills. with respect to back - declines back brace (had one in the past - didn't like how it made his back feel). requests dilaudid remain. declines increase in oxycodone to 15mg from 10mg, however. walking to bathroom without difficulty. Review of Systems Constitutional: no fever and no chills Respiratory: no hemoptysis Cardiovascular: no chest pain Gastrointestinal: no abdominal pain and no diarrhea/loose stools Physical Exam Constitutional: well developed and well nourished; no acute distress ENMT: external ear and nose normal, oropharynx normal Respiratory: Auscultation: + diminished lung sounds (bases) and + wheezes (minimal); no rales Cardiovascular: Rate/Rhythm: regular rate and regular rhythm Heart Sounds: normal S1 and normal S2; no murmur Vessels: posterior tibial pulses present and dorsalis pedis pulses present; no JVD Gastrointestinal (Abdomen): normal bowel sounds, soft, nontender, no hepatosplenomegaly Musculoskeletal: Spine: thoracic spine normal to inspection and + thoracic spinal tenderness Neurologic: no focal motor deficits (strength - all leg muscles - 5/5) Psychiatric: A+Ox3, euthymic affect Results & Data Vital Signs (Past 12 Hours) Vital Signs Temp Pulse Resp BP Pulse Ox 11/16/18 07:04 36.7 C 76 18 116/78 94 Laboratory Results Laboratory Results - last 24 hr 11/16/18 11/16/18 06:00 06:00 Sodium 136 Potassium 4.1 D Chloride 103 Carbon Dioxide 30 Anion Gap 3.0 BUN 22 H Creatinine 1.37 1.36 Est Cr Clr Drug Dosing 77.0 77.6 Est GFR ( Amer) 64.5 65.1 Est GFR (Non-Af Amer) 55.7 56.2 BUN/Creatinine Ratio 15.9 Glucose 87 Calcium 8.5 PG Care Time/CCT Total # of Minutes Spent Total Time Spent with Patient: Total time spent is greater than 50% in coordination of care (as documented) at patient's floor/unit and/or counseling patient: (1) Coronary artery disease Coronary Disease-Associated Artery/Lesion type: [place] artery [place] vs. transplanted heart: morongo heart Associated angina: without angina Qualified Code(s): I25.10 - Atherosclerotic heart disease of [place] coronary artery without angina pectoris (2) Depression Depression Type: other depression Qualified Code(s): F32.89 - Other specified depressive episodes (3) Chronic viral hepatitis C Hepatic coma status: without hepatic coma Qualified Code(s): B18.2 - Chronic viral hepatitis C (4) Thoracic compression fracture Encounter type: initial encounter Thoracic vertebra fracture level: unspecified thoracic vertebra Qualified Code(s): S22.000A - Wedge compression fracture of unspecified thoracic vertebra, initial encounter for closed fracture (5) Aspiration pneumonia of both lower lobes Aspiration pneumonia type: unspecified Qualified Code(s): J69.0 - Pneumonitis due to inhalation of food and vomit (6) COPD (chronic obstructive pulmonary disease) COPD type: unspecified COPD Qualified Code(s): J44.9 - Chronic obstructive pulmonary disease, unspecified (7) GERD (gastroesophageal reflux disease) Esophagitis presence: esophagitis presence not specified Qualified Code(s): K21.9 - Gastro-esophageal reflux disease without esophagitis (8) Hypertension Hypertension type: essential hypertension Qualified Code(s): I10 - Essential (primary) hypertension
[2018-11-16] MEDS: predniSONE 20 MG TAB PO SCH (13:38)
[2018-11-16] MEDS: AMOXICILLIN/CLAVULANATE 875 MG TAB PO SCH (16:42)
[2018-11-16] MEDS: LORazepam 1 MG TAB PO PRN (21:24)
[2018-11-16] MEDS: ATORVASTATIN 40 MG TAB PO SCH (21:28)
[2018-11-16] MEDS: DOCUSATE SODIUM 100 MG CAP PO SCH (22:54)
[2018-11-17] MEDS: DICLOFENAC SOD 1% GEL 100 GM TUBE EXT PRN (00:12)
--- NOTE | 2018-11-17 05:40 | Discharge Summary ---
Date of Service date of admission - November 11, 2018 date of discharge - November 17, 2018 Admission HPI Per Admitting Provider The patient is a 57-year-old male with a past medical history including CAD, hypertension, chronic systolic CHF, atrial fibrillation, ischemic cardiomyopathy, COPD, peripheral arterial disease, AICD, and GERD with last [facility] admission from 09/18-09/24/2018 for altered mental status, who presents with mid thoracic back pain and worsening shortness of breath over the past couple days with intermittent nonproductive cough. Patient had imaging studies performed while in the ED including CT of chest, which noted debris in the airways bilaterally suggesting possible aspiration pneumonia. Upon questioning, patient reports that he has had intermittent problems with coughing and clearing his throat while eating over the past several months. He has had no recent travels or sick exposures, other than recent hospital stay as noted. He was also found to have a new T8 compression fracture, in addition to a number of older thoracic compression fractures, which has most likely occurred due to issues with coughing and reports he was lifting some heavy objects at his residence. Principal Diagnosis bilateral lower lobe pneumonia, possibly due to aspiration Discharge Exam Constitutional well developed and well nourished; no acute distress ENMT external ear and nose normal, oropharynx normal Respiratory Auscultation: + diminished lung sounds (bases) and + wheezes (minimal); no rales Cardiovascular Rate/Rhythm: regular rate and regular rhythm Heart Sounds: normal S1 and normal S2; no murmur Vessels: posterior tibial pulses present and dorsalis pedis pulses present; no JVD Gastrointestinal (Abdomen) normal bowel sounds, soft, nontender, no hepatosplenomegaly Musculoskeletal Spine: thoracic spine normal to inspection and + thoracic spinal tenderness Neurologic no focal motor deficits (strength - all leg muscles - 5/5) Psychiatric A+Ox3, euthymic affect Discharge Data Allergies Allergy/AdvReac Type Severity Reaction Status Date / Time heparin Allergy Severe Reported Verified 11/13/18 17:26 by PT, swells up from Heparin injections. Iodinated Contrast- Oral and Allergy Severe swelling, Verified 10/23/18 13:18 IV Dye hives lorazepam Allergy Unknown Verified 11/15/18 14:05 trazodone Allergy Unknown Verified 11/15/18 14:05 zolpidem [From Ambien] Allergy Unknown Verified 11/15/18 14:05 ibuprofen AdvReac Intermediate nausea Verified 10/23/18 13:18 vomiting Consultations physical therapy speech therapy Ordered Studies 1. CT chest - IMPRESSION: 1. Airway debris with bronchial wall thickening and increasing lower lobe consolidation and a dependent distribution most characteristic of acute on chronic aspiration. 2. Suspected trace emphysema. 3. Cardiomegaly. 4. Multilevel compression deformities, many which are stable from prior, although the moderate compression fracture at T8 is new. Correlate for point tenderness. 2. CT thoracic spine - IMPRESSION: 1. Moderate compression fracture at T8 is new since the prior CT in September and is acute or subacute. Correlate with point tenderness. 2. Multilevel compression fractures unchanged from prior exam. 3. Extensive dependent consolidation in the lungs with associated airway debris, suggestive of aspiration/aspiration pneumonitis. Hospital Course (1) Aspiration pneumonia of both lower lobes: Received 5-6 days of IV zosyn. Then was transitioned to oral augmentin. Plan 2 more days of augmentin then stop antibiotics. At time of discharge had stable lung exam and no O2 requirement. Seen by speech therapy - dietary modification not advised as no dysphagia was seen on bedside swallow evaluation. (2) Thoracic compression fracture: T8 - acute to subacute (had 3 weeks of pain pre-hospitalization in the thoracic spine region). Treated with percocet 10's prn (takes this chronically outside the hospital). Started on Miacalcin nasal spray daily - this is for osteoporosis but also has been shown to help with compression fracture pain. Started on lidoderm patches 2/day. Finishing prednisone course for lungs which will also help his acute back pain. NO EVIDENCE OF SPINAL CORD COMPROMISE ON NEUROLOGICAL EXAM (LEGS ARE STRONG, NO SENSORY LEVEL, ETC). Recommend - 1. vitamin D supplementation 2000 IU daily. 2. outpatient DEXA scan to check bone density. 3. consider heat. Patient declined back brace. (3) Chronic viral hepatitis C: Normal LFTs. No signs of cirrhosis. (4) Coronary artery disease: Stable and w/o ischemic symptoms. History of multiple coronary stents to the RCA in 2017 in [place]. Repeat cardiac catheterization in 05/2017 at [facility] showed severe LAD and RCA disease but no interventions during that cath. 05/2017 cath was completed in the context of an NSTEMI. Continue usual medications: aspirin, carvedilol, clopidogrel, Eliquis, spironolactone and torsemide. (5) ICD (implantable cardioverter-defibrillator), single, in situ: No recent discharges from the ICD. (6) Chronic systolic (congestive) heart failure: Compensated during the visit. EF 20-25%. Due to ischemic cardiomyopathy. Continue beta sravan, torsemide, aldactone. Not a candidate for RALPH or ARB due to propensity for low BP and orthostasis. Torsemide dose - 60mg qam. Aldactone dose - 50mg once daily at 1600 every afternoon. Should see a train brakeman within 1 week of discharge. Daily weights advised. Repeat BMP and magnesium level within 1 week of discharge at the latest. (7) Hypertension: Controlled during the stay. (8) Paroxysmal A-fib: Cont Eliquis BID Cont amiodarone BID Cont coreg BID Remained in NSR while hospitalized (9) Ischemic cardiomyopathy: EF 20-25% compensated while hospitalized cont BB, diuretics intolerant of RALPH or ARB in past due to orthostasis (10) COPD (chronic obstructive pulmonary disease): with mild COPD exacerbation during this visit. was on IV steroids; now back down to oral prednisone 3 more doses of daily prednisone 20mg then stop (11) CKD (chronic kidney disease), stage II: Creatinine at baseline during the stay Baseline Cr is 1.2 to 1.3 (12) GERD (gastroesophageal reflux disease): Continue ranitidine and pantoprazole (13) Depression: cont Lorazepam and buspar for anxiety, and Lexapro for anxiety/depression (14) Chronic pain syndrome: due to chronic back pain. takes percocet 10's up to 7 tablets each day. (15) Ventricular fibrillation: history of such. s/p AICD placement in the past. (16) History of venous thromboembolism: h/o multiple episodes of DVT/PE by history. lifelong anticoagulation recommended. (17) CVA (cerebral vascular accident): history of - no residual deficits. (18) Status post popliteal-distal bypass surgery: has known PAD. had bypass on legs in [place] in 2017. (19) Vitamin D insufficiency: vitamin D level was 25. started on vitamin D 2000 IU Daily. needs repeat level in 3 months. (20) Discharge planning issues: warrant for pt's arrest was issued by [facility]; [facility] was notified of this during this hospitalization. [facility] office was involved in his discharge. Total Time Total Time Spent Total Time Spent (In Minutes): 45 Total Time Includes: Examination of the Patient, Discharge Planning, Medication Reconciliation and Communication With Other Providers Discharge Plan Discharge Items [facility] Disposition: [facility] Reason For Visit: ASPIRATION PNEUMONIA Discharge Diagnosis: 1. bilateral lower lobe aspiration pneumonia. 2. T8 compression fracture. 3. chronic systolic CHF. Discharge Goals: Diagnostic testing and Therapeutic intervention Activity: As commented below Activity Comment: light activities for 1-2 weeks Lifting: Gradually increase as tolerated and No more than 10 pounds Exercise/Sports: Gradually increase as tolerated Non-emergency contact: Primary Care Provider and Circus Agent Call non-emergency contact if: you have any medication questions, your symptoms worsen, your pain is not controlled, your pain is worsening and your temperature is above 100.5 Follow-up/Referrals: Hilda Marie MD [Primary Care Provider] - Diet: Heart Healthy and Low Sodium (2gm) Fluids: 1500ml (6 cups) Addtl Provider Instructions: Mr Morgan was seen and treated for bilateral lower lobe pneumonia, perhaps aspiration pneumonia. He received 5+ days of IV antibiotics then was transitioned to oral antibiotics. He was also found to have an acute T8 compression fracture. He likely developed this due to osteoporosis. A coughing spell may have led to the acute compression fracture. This was treated with pain medications, steroids, calcitonin nasal spray, and lidoderm patches. He declined a back brace. He has a history of chronic systolic CHF and follows with cardiology in [place] for such. His CHF was compensated / controlled while here. Recommendations - 1. finish amoxicillin-clavulanate antibiotic for 2 more days. 2. finish prednisone course 20mg daily. 3. calcitonin nasal spray daily - this is for back pain from the compression fracture and for osteoporosis. 4. vitamin D supplementation 2000 IU daily. 5. consider outpatient DEXA scan. 6. lidocaine patches to back -- apply up to 2 patches for 12 hours, remove for 12 hours. Labs - Needs BMP and Magnesium level in 3-5 days for stability. Results to medical imaging technician, FAMILY DOCTOR, or train brakeman. Follow-up - Ideally needs to be seen by a train brakeman within 1 week of discharge given the complexity of his cardiac history. Or, if cardiology is not readily available, should be seen by a medical imaging technician or family doctor within 1 week. Congestive heart failure recommendations - CHECK DAILY WEIGHT EVERY MORNING ON A STANDING SCALE. NOTIFY A PHYSICIAN IF THERE IS MORE THAN 2-3 POUNDS OF WEIGHT GAIN OVER 1-2 DAYS. Call 911 and go to the Emergency Room if: * You have tightness or pain in your chest that does not go away with rest or Nitroglycerin * You are very short of breath even with rest Call your doctor if any of the following symptoms or problems start or get worse: * Shortness of breath or difficulty breathing * Wake up at night short of breath * Chest pain * Cough * Swelling of your hands, fee, or legs * More fatigued or tired with your normal activity * Palpitations - sudden fast heart beats WEIGHT * Weigh yourself every morning after using the bathroom. * Use the same scale. * Wear the same amount of clothing. * Write your weight down on your chart. * Call your doctor if you gain more than 2-3 pounds in 1-2 days. MEDICATIONS * Use this discharge instruction sheet for instructions. * Take your medications at the time your doctor ordered. * Do not skip a dose of your medicines. * If you miss a dose of medicine, take as soon as possible, but DO NOT DOUBLE A DOSE. * Read your medicine information when you get home. * Know all of the side effects of your medicine. * Call your doctor's office if you have any side effects. * Be sure all of your doctors know what medicine and herbs you take (including cold, flu, and herbal medicine). * Pain Medicine: If you do not get relief from your pain, please call your doctor for help. Take the following with you to your follow-up doctor appointments: * Weight Chart * Medication List * List of questions Do not drink excessive alcohol, beer or wine. Prescriptions: New prednisone 20 mg Tablet 20 mg PO QAM 2 Days Qty: 2 RF: 0 calcitonin (salmon) 200 unit/actuation [place],Non-Aerosol 1 spry NA DAILY Qty: 1 RF: 5 lidocaine 5 % Adhesive Patch,Medicated 2 patch transdermal DAILY@0900 Qty: 60 RF: 0 amoxicillin-pot clavulanate 875-125 mg Tablet 1 tab PO BIDM 2 Days Qty: 4 RF: 0 cholecalciferol (vitamin D3) [Vitamin D3] 2,000 unit capsule 2,000 units PO DAILY Qty: 30 RF: 2 Saccharomyces boulardii 250 mg capsule 250 mg PO DAILY 7 Days Qty: 7 RF: 0 Continued Zyrtec 10 mg capsule 10 mg PO DAILY Qty: 30 RF: 5 lorazepam 1 mg tablet 1 mg PO QPM PRN (Reason: sleep) 30 Days Qty: 60 RF: 0 escitalopram oxalate [Lexapro] 10 mg tablet 10 mg PO DAILY Qty: 30 RF: 2 buspirone 15 mg tablet 15 mg PO TID Qty: 90 RF: 2 torsemide 20 mg tablet 60 mg PO DAILY Qty: 90 RF: 0 carvedilol [Coreg] 6.25 mg tablet 6.25 mg PO BID Qty: 60 RF: 2 atorvastatin 80 mg tablet 80 mg PO HS RF: 0 aspirin 81 mg Tablet,Delayed Release (Dr/Ec) 81 mg PO QAM RF: 0 azelastine 137 mcg (0.1 %) aerosol,spray 1 spray Intranasal BID PRN (Reason: ALLERGIES) RF: 0 multivitamin [Daily Multiple] Tablet 1 tab PO QAM RF: 0 polyethylene glycol 3350 [Miralax] 17 gram Powder In Packet 17 g PO DAILY PRN (Reason: Constipation) RF: 0 clopidogrel 75 mg tablet 75 mg PO QAM RF: 0 pantoprazole 40 mg tablet,delayed release (DR/EC) 40 mg PO QAM RF: 0 ranitidine HCl 150 mg tablet 150 mg PO Q12H RF: 0 melatonin 10 mg Tablet 10 mg PO HS RF: 0 spironolactone 25 mg tablet 50 mg PO 1600 RF: 0 albuterol sulfate [Ventolin HFA] 90 mcg/actuation Hfa Aerosol Inhaler 2 puff INHALATION Q6H PRN (Reason: Shortness Of Breath) RF: 0 diclofenac sodium [Voltaren] 1 % gel 4 gm TOP QID PRN (Reason: Pain) RF: 0 amiodarone 200 mg Tablet 200 mg PO BID Qty: 60 RF: 0 flaxseed oil-omega 3,6,9 1,300 mg-845 mg -117 mg-117 mg Capsule 1 cap PO 1200 RF: 0 fluticasone propion-salmeterol [Advair Diskus] 250-50 mcg/dose blister with device 1 puff Inhalation BID RF: 0 ondansetron HCl [Zofran] 4 mg Tablet 4 mg PO QID PRN (Reason: Nausea) RF: 0 docusate sodium [Colace] 100 mg Capsule 200 mg PO HS RF: 0 ginkgo biloba 120 mg Tablet 120 mg PO DAILY RF: 0 coenzyme Q10 [Co Q-10] 200 mg Capsule 200 mg PO DAILY RF: 0 Calcium Magnesium 500 mg calcium -250 mg Tablet PO DAILY RF: 0 Combivent Respimat 20-100 mcg/actuation Mist 1 puff INHALATION TID RF: 0 saw palmetto 160 mg Capsule PO BID RF: 0 Eliquis 5 mg Tablet 5 mg PO BID Qty: 60 RF: 0 Changed oxycodone-acetaminophen 10-325 mg tablet 1 tab PO Q4H MDD Max 7 tabs daily. PRN (Reason: Pain) Qty: 60 RF: 0 Discontinued Probiotic 3 billion cell Capsule PO DAILY RF: 0 Stand-Alone Forms: [facility] Discharge Orders: Discharge Order (Routine); Ordered 11/17/18 Ordered By: Juan A Estevez Admission Data Admit Date/Time: 11/11/18 20:22 Attending Provider: Juan A Estevez Admit Provider: Bryan Mathew Primary Care Provider: Hilda Marie Other Providers: Bryan Mathew Service: Medical Other Interventions: Discharge Summary Assessment (RN) Last Done: 11/17/18 02:17 Pending Studies at Discharge: No
[2018-11-17] MEDS: OXYCODONE/ACETAMINOPHEN 10-325 TAB PO PRN ×2 (06:07→10:04)
[2018-11-17 06:50] LABS: BUN Creatinine Ratio 16.1 (10-20); Calcium 8.9 mg/dl (8.5-10.1); Creatinine Clr Calc Pharmacy 84.4 ml/min; Est GFR (African American) 72.1; Est GFR (Non-African American) 62.2; Potassium 4.4 mmol/L (3.5-5.1)
[2018-11-17] MEDS: predniSONE 20 MG TAB PO SCH (07:39)
[2018-11-17] MEDS: APIXABAN 5 MG TABLET PO SCH (07:39)
[2018-11-17] MEDS: ASPIRIN 81 MG ECTAB PO SCH (07:40)
[2018-11-17] MEDS: BusPIRone 15 MG TAB PO SCH (07:40)
[2018-11-17] MEDS: AMIODARONE 200 MG TAB PO SCH (07:41)
[2018-11-17] MEDS: CARVEDILOL 6.25 MG TAB PO SCH (07:41)
[2018-11-17] MEDS: AMOXICILLIN/CLAVULANATE 875 MG TAB PO SCH (07:42)
[2018-11-17] MEDS: CETIRIZINE HCL 10 MG TABLET PO SCH (07:42)
[2018-11-17] MEDS: CLOPIDOGREL BISULFATE 75 MG TAB PO SCH (07:44)
[2018-11-17] MEDS: CALCITONIN SALMON NA 200 IU/AC 3.7 ML BTL SCH (07:44)
[2018-11-17] MEDS: ESCITALOPRAM OXALATE 10 MG TAB PO SCH (07:44)
[2018-11-17] MEDS: IPRATROPIUM BROMIDE/ALBUTEROL respimat INH INH SCH (07:45)
[2018-11-17] MEDS ORDERED: TORSEMIDE 20 MG TAB PO SCH (09:00)
[2018-11-17] MEDS ORDERED: LIDOCAINE 5% 1 PATCH TD SCH (09:00)
--- NOTE | 2018-11-20 08:07 | Coding Query ---
CODING QUERY To promote full compliance with coding requirements relating to patient care, provider participation is requested in all cases of cloth bin packer uncertainty. Please assist us with the question(s) below: Coding Question(s): Patient adm with aspiration pneumonia and new T-8 compression fracture; also older compression vertebral fractures. Current/acute T-8 fracture pain noted 3 weeks prior to admission from overexertion /twisting . Please document, if known or suspected, the etiology of the T-8 fracture. Thanks for your help! KARI Beckham [facility] Physician's Response(s): osteoporotic compression fracture nontraumatic Principal Diagnosis: "that condition established after study, to be chiefly responsible for occasioning the admission of the patient to the hospital for care." Co-Existing Principal Diagnosis: "when two or more diagnoses equally meet the criteria for principal diagnosis as determined by the circumstances of admission, diagnostic work up, and/or therapy provided, and the Alphabetic Index, Tabular List, or another coding guideline does not provide sequencing direction, any one of the diagnoses may be sequenced first." "When the physician has documented what appears to be a current diagnosis in the body of the record, but has not included the diagnosis in the final diagnostic statement, the physician should be asked whether the diagnosis should be added." (Source Coding Clinic 2 QTR90. p3-4) GWEN
== END 2018-11-17 11:03 | DRG 178 ==
LOC: ED 15:02 → SUATTDRO 20:22 → 2S 20:22 → 4E 11-13 10:32